=== PATIENT | male | born 1970 | race Caucasian/White ===

== ENCOUNTER 2016-11-12 11:09 | Emergency (ER) | payer SELFPAY ==
[~2016-11-12] VITALS: Ht 172.7 cm; Wt 72.8 kg
[~2016-11-12 11:09] MED LIST: FLT05NA16 NSEACH; GLUC1KIT2 IJ; INSU100I17 SQ; INSU100V13 SQ; INSU100V5 SQ; INSU100V6 SQ; LISI20TA PO; LOVA10TA PO; PALI234D IM; PALIPERIDONE PALMITATE 234 MG IM; SULF1TAB38 PO
--- NOTE | 2016-11-12 11:43 | ED General ---
General Chief Complaint: Eye Problems Stated Complaint: EYE IS SWOLLEN Nursing Triage Note: PT HAS SWELLING BELOW BOTH EYES THAT HE SAYS HE WOKE UP WITH THIS A.M. Nursing Sepsis Screen: No Definite Risk Source of Information: Patient, Family (sister) Exam Limitations: No Limitations History of Present Illness Time Seen by Provider: 11:30 Initial Comments 46-year-old male patient presents to the emergency department complains of swelling below both eyes beginning this a.m. when he woke up. Denies any known injury. Denies headache, changes in vision. Does state he has had mild tearing of the eyes. Denies any known contact with allergens. Denies fever, dizziness, chills. Timing/Duration: 1-3 Hours Allergies and Home Medications Allergies Coded Allergies: Cephalexin Monohydrate (Verified Adverse Reaction, Mild, 07/18/11) Erythromycin Base (Verified Adverse Reaction, Mild, 07/18/11) Home Medications Insulin Aspart Unknown Strength Insuln.pen, 13 UNIT SQ TID, (Reported) WITH MEALS Insulin Detemir 100 Unit/1 Ml Vial, 30 UNIT SQ HS, (Reported) Lisinopril 20 Mg Tablet, 20 MG PO DAILY, (Reported) TAKES FOR KIDNEY FUNCTION, NOT B/P Lovastatin 10 Mg Tablet, 10 MG PO HS, (Reported) Prednisone 20 Mg Tab, 20 MG PO DAILY, #4 Ref 0 Prescribed by: AMBER SUAREZ on 11/12/16 1305 Constitutional: No chills, No diaphoresis, No dizziness, No fever, No malaise, No weakness EENTM: see HPI, tearing, No ear discharge, No ear pain, No eye pain, No mouth pain, No mouth swelling, No nose congestion, No nose pain, No throat pain, No throat swelling, No vision loss Respiratory: no symptoms reported Cardiovascular: no symptoms reported Gastrointestinal: no symptoms reported Genitourinary: no symptoms reported Musculoskeletal: no symptoms reported Skin: see HPI, No change in color, No lesions, other (swelling below the eyes bilaterally) Psychiatric/Neurological: Denies Headache Immunological/Allergic: no symptoms reported All Other Systems Reviewed Negative Unless Noted: Yes (Negative excepted noted.) Past Skvseyi-Gfrmll-Awzabq Hx Patient Social History Alcohol Use: Denies Use Recreational Drug Use: No Smoking Status: Current Everyday Smoker Type Used: Cigarettes Recent Foreign Travel: No Contact w/Someone Who Travel: No Recent Infectious Disease Expo: No Recent Hopitalizations: No Immunizations Up To Date Tetanus Booster (TDap): More than 5yrs Date of Influenza Vaccine: Mar 14, 2011 Seasonal Allergies Seasonal Allergies: No Surgeries HX Surgeries: Yes (NEGAR ANTONIO) Surgeries: Tonsillectomy Respiratory Hx Respiratory Disorders: No Cardiovascular Hx Cardiac Disorders: No Neurological Hx Neurological Disorders: No Reproductive System Hx Reproductive Disorders: No Genitourinary Hx Genitourinary Disorders: No Gastrointestinal Hx Gastrointestinal Disorders: Yes Gastrointestinal Disorders: Gastroesophageal Reflux, Hiatal Hernia Musculoskeletal Hx Musculoskeletal Disorders: No Endocrine Hx Endocrine Disorders: Yes Endocrine Disorders: Diabetes, Insulin dep HEENT HX ENT Disorders: No Cancer Hx Cancer: No Psychosocial Hx Psychiatric Problems: Yes Behavioral Health Disorders: Bipolar, Schizophrenia Integumentary HX Skin/Integumentary Disorder: No Blood Transfusions Hx Blood Disorders: No Adverse Reaction to a Blood Tr: No Reviewed Nursing Assessment Reviewed/Agree w Nursing PMH: Yes Family Medical History Significant Family History: No Pertinent Family Hx Family Medial History: Cataract 03 FATHER, Onset:60 years & older Family history: Arthritis 03 FATHER, Onset:60 years & older Family history: Diabetes mellitus 03 FATHER, Onset:60 years & older Hypercholesterolemia 03 FATHER, Onset:60 years & older No Family History of: Abdominal aortic aneurysm Maxime's disease Alcoholism Aphasia Cancer Cancer of colon Chest pain Congenital heart disease Congestive heart failure Cystic fibrosis Dementia Dysphagia Family history: Allergy Family history: Alzheimer's disease Family history: Asthma Family history: Breast disease Family history: Cardiovascular disease Family history: Coronary thrombosis Family history: Gastrointestinal disease Family history: Glaucoma Family history: Hypertension Family history: Osteoporosis Family history: Thyroid disorder Headache Hearing loss Heart disease Hereditary disease History of - anemia History of - respiratory disease History of drug abuse Human immunodeficiency virus (HIV) seropositivity Infertile Kidney disease Malignant neoplasm of lung Myocardial infarction Parkinson's disease Prostate cancer Psychotic disorder Seizure disorder Stroke Tuberculosis Visual impairment Physical Exam Vital Signs Vital Sign - Last 12Hours 11/12/16 11:22 Temp 98.0 Pulse 105 Resp 20 B/P (MAP) 132/81 Pulse Ox 98 O2 Delivery Room Air Capillary Refill : Less Than 3 Seconds General Appearance: No Apparent Distress, WD/WN Eyes: Bilateral Eye EOMI, Bilateral Eye Other (infraorbital edema bilaterally w /o erythema or warmth. (-) tenderness.), Bilateral Eye PERRL HEENT: PERRL/EOMI, TMs Normal, Normal ENT Inspection, Pharynx Normal, Other ( infraorbital edema bilaterally w/o erythema or warmth. (-) tenderness. slight conjunctival injection bilaterally with tearing noted.) Neck: Full Range of Motion, Normal Inspection, Non Tender, Supple Respiratory: Lungs Clear, Normal Breath Sounds, No Respiratory Distress Cardiovascular: Regular Rate, Rhythm, No Edema, No Murmur, Normal Peripheral Pulses Gastrointestinal: Normal Bowel Sounds, Non Tender, Soft, No Distended Back: Normal Inspection Extremity: Normal Capillary Refill, Normal Inspection, No Pedal Edema Neurologic/Psychiatric: Alert, Oriented x3, No Motor/Sensory Deficits, Normal Mood/Affect, recruitment advertising manager II-XII Norm as Tested Skin: Normal Color, Warm/Dry, Other (infraorbital edema bilaterally w/o erythema or warmth. (-) tenderness.) Progress/Results/Core Measures Results/Orders Lab Results Laboratory Tests Test 11/12/16 11:45 11/12/16 11:55 11/12/16 12:00 11/12/16 12:38 Range/Units White Blood Count 11.1 H 4.3-11.0 10^3/uL Red Blood Count 4.54 4.35-5.85 10^6/uL Hemoglobin 13.5 13.3-17.7 G/DL Hematocrit 41 40-54 % Mean Corpuscular Volume 91 80-99 FL Mean Corpuscular Hemoglobin 30 25-34 PG Mean Corpuscular Hemoglobin Concent 33 32-36 G/DL Red Cell Distribution Width 15.7 H 10.0-14.5 % Platelet Count 278 130-400 10^3/uL Mean Platelet Volume 10.3 7.4-10.4 FL Neutrophils (%) (Auto) 75 42-75 % Lymphocytes (%) (Auto) 16 12-44 % Monocytes (%) (Auto) 8 0-12 % Eosinophils (%) (Auto) 1 0-10 % Basophils (%) (Auto) 0 0-10 % Neutrophils # (Auto) 8.4 H 1.8-7.8 X 10^3 Lymphocytes # (Auto) 1.7 1.0-4.0 X 10^3 Monocytes # (Auto) 0.9 0.0-1.0 X 10^3 Eosinophils # (Auto) 0.1 0.0-0.3 10^3/uL Basophils # (Auto) 0.0 0.0-0.1 10^3/uL Sodium Level 144 135-145 MMOL/L Potassium Level 3.2 L 3.6-5.0 MMOL/L Chloride Level 108 H 98-107 MMOL/L Carbon Dioxide Level 30 21-32 MMOL/L Anion Gap 6 5-14 MMOL/L Blood Urea Nitrogen 11 7-18 MG/DL Creatinine 0.75 0.60-1.30 MG/DL Estimat Glomerular Filtration Rate > 60 BUN/Creatinine Ratio 15 Glucose Level 38 *L 70-105 MG/DL Calcium Level 9.2 8.5-10.1 MG/DL Total Bilirubin 0.2 0.1-1.0 MG/DL Aspartate Amino Transf (AST/SGOT) 50 H 5-34 U/L Alanine Aminotransferase (ALT/SGPT) 36 0-55 U/L Alkaline Phosphatase 82 40-136 U/L C-Reactive Protein High Sensitivity 0.24 0.00-0.50 MG/DL B-Type Natriuretic Peptide 71.7 <100.0 PG/ML Total Protein 5.8 L 6.4-8.2 G/DL Albumin 3.6 3.2-4.5 G/DL Glucometer 37 *L 133 H 70-110 MG/DL Urine Color YELLOW Urine Clarity CLEAR Urine pH 6 5-9 Urine Specific [place] 1.020 1.016-1.022 Urine Protein NEGATIVE NEGATIVE Urine Glucose (UA) NEGATIVE NEGATIVE Urine Ketones NEGATIVE NEGATIVE Urine Nitrite NEGATIVE NEGATIVE Urine Bilirubin NEGATIVE NEGATIVE Urine Urobilinogen NORMAL NORMAL MG/DL Urine Leukocyte Esterase NEGATIVE NEGATIVE Urine RBC (Auto) NEGATIVE NEGATIVE Urine RBC NONE /HPF Urine WBC RARE /HPF Urine Crystals NONE /LPF Urine Bacteria TRACE /HPF Urine Casts NONE /LPF Urine Mucus SMALL H /LPF Urine Culture Indicated NO My Orders Orders - AMBER SUAREZ BNP (11/12/16 11:38) Cbc With Automated Diff (11/12/16 11:38) Comprehensive Metabolic Panel (11/12/16 11:38) Hs C Reactive Protein (11/12/16 11:38) Ua Culture If Indicated (11/12/16 11:38) Accucheck Stat ONCE (11/12/16 11:38) Saline Lock/Iv-Start (11/12/16 11:38) D50w (Emergency) Syringe (Dextrose 50% 5 (11/12/16 12:00) Famotidine Injection (Pepcid Injection) (11/12/16 11:56) Diphenhydramine Tablet (Benadryl Tablet) (11/12/16 12:00) Methylprednisolone Sod Succ (Solu-Medrol (11/12/16 12:00) General/Regular (11/12/16 Lunch) Iv Push Body Rolling Machine Tender Ed (11/12/16 ) Im/Sub-Q Injection Non-Ab Ed (11/12/16 ) Medications Given in ED Vital Signs/I&O Blood Pressure Mean: 98 Departure Communication Progress Notes Laboratory findings discussed with the patient. Patient shows improvement in symptoms with medications given in the emergency department. Plan for discharge to home. Patient instructed to follow-up with [facility] for recheck. Patient to monitor blood sugars closely. All return precautions were discussed with the patient as described in the discharge instructions of this report. Patient voices understanding and agrees with the treatment plan. Impression Impression: Primary Impression: Angio-edema Additional Impression: Hypoglycemia Disposition: 01 HOME, SELF-CARE Condition: Improved Departure-Patient Inst. Decision time for Depature: 13:04 Referrals: [facility] (PCP/Family) Primary Care Physician Patient Instructions: Angioedema (DC), Low Blood Sugar, Adult (DC) Add. Discharge Instructions: All discharge instructions reviewed with patient and/or family. Voiced understanding. Medications as instructed. Benadryl [id number] as directed for itching or swelling. Pepcid [id number] 20 mg by mouth twice daily as needed for itching and swelling. Cool compresses if needed. Follow- up with Jena Lemus APRN for recheck. Monitor blood sugars closely. Return to the emergency department for worsened swelling, pain, headache, dizziness, changes in vision, difficulty swallowing, difficulty breathing, vomiting, or any other concerns. Scripts Prednisone (Prednisone) 20 Mg Tab 20 MG PO DAILY, #4 TAB 0 Refills Prov: AMBER SUAREZ 11/12/16 AMBER SUAREZ November 12, 2016 11:43
[2016-11-12] MEDS ORDERED: FAMOTIDINE 20MG/2ML IV (PEPCID) IV STA (11:56)
[2016-11-12] MEDS ORDERED: DEXTROSE 50% 50 ML (IMS) SYR IV ONE (12:00)
[2016-11-12] MEDS ORDERED: methylPREDNISolone 125 MG (Solu-MEDROL) VIAL IM ONE (12:00)
[2016-11-12] MEDS ORDERED: diphenhydrAMINE 25 MG TAB (BENADRYL) PO ONE (12:00)
[2016-11-12 12:01] LABS: BASOPHILS % (AUTO) 0 % (0-10); EOSINOPHILS # (AUTO) 0.1 10^3/uL (0.0-0.3); EOSINOPHILS % (AUTO) 1 % (0-10); LYMPHOCYTES # (AUTO) 1.7 X 10^3 (1.0-4.0); LYMPHOCYTES % (AUTO) 16 % (12-44); MEAN CORPUSCULAR HEMOGLOBIN 30 PG (25-34); MEAN CORPUSCULAR HGB CONC 33 G/DL (32-36); MEAN CORPUSCULAR VOLUME 91 FL (80-99); MEAN PLATELET VOLUME 10.3 FL (7.4-10.4); MONOCYTES # (AUTO) 0.9 X 10^3 (0.0-1.0); MONOCYTES % (AUTO) 8 % (0-12); NEUTROPHILS # (AUTO) 8.4 X 10^3 (1.8-7.8); NEUTROPHILS % (AUTO) 75 % (42-75); PLATELET COUNT 278 10^3/uL (130-400); RED BLOOD COUNT 4.54 10^6/uL (4.35-5.85); RED CELL DISTRIBUTION WIDTH 15.7 % (10.0-14.5); WHITE BLOOD COUNT 11.1 10^3/uL (4.3-11.0)
[2016-11-12 12:18] LABS: ALANINE AMINOTRANSFERASE 36 U/L (0-55); ALBUMIN 3.6 G/DL (3.2-4.5); ANION GAP 6 MMOL/L (5-14); ASPARTATE AMINO TRANSFERASE 50 U/L (5-34); BILIRUBIN,TOTAL 0.2 MG/DL (0.1-1.0); BLOOD UREA NITROGEN 11 MG/DL (7-18); BUN/CREATININE RATIO 15; CALCIUM 9.2 MG/DL (8.5-10.1); CARBON DIOXIDE 30 MMOL/L (21-32); CHLORIDE 108 MMOL/L (98-107); CREATININE SERUM 0.75 MG/DL (0.60-1.30); GFR ESTIMATED > 60; POTASSIUM 3.2 MMOL/L (3.6-5.0); SODIUM 144 MMOL/L (135-145); TOTAL PROTEIN 5.8 G/DL (6.4-8.2); hs C REACTIVE PROTEIN 0.24 MG/DL (0.00-0.50)
[2016-11-12 12:22] LABS: BILIRUBIN,URINE NEGATIVE (NEGATIVE); KETONES,URINE NEGATIVE (NEGATIVE); LEUKOCYTE ESTERASE ,URINE NEGATIVE (NEGATIVE); NITRITE,URINE NEGATIVE (NEGATIVE); PH,URINE 6 (5-9); PROTEIN,URINE NEGATIVE (NEGATIVE); UROBILINOGEN,URINE NORMAL (NORMAL)
[2016-11-12 12:26] LABS: GLUCOSE 38 MG/DL (70-105)
[2016-11-12 12:44] LABS: WBC,URINE RARE /HPF
[2016-11-12] MEDS ORDERED: PRD20T PO (13:05)
[2016-11-12 13:14] VITALS: BP 118/83
== END 2016-11-12 13:14 | disposition home or self-care (01) ==
LOC: EDUNIT# 11:09 → ER 11:11
DX: T78.3XXA Angioneurotic edema, initial encounter (principal); E11.649 Type 2 diabetes mellitus with hypoglycemia without coma; F17.210 Nicotine dependence, cigarettes, uncomplicated; Z79.4 Long term (current) use of insulin; Z79.899 Other long term (current) drug therapy
CPT/HCPCS: 36415; 80053; 81000; 82962; 83880; 85025; 86141; 96372; 96374; 96375

== ENCOUNTER 2017-01-27 20:16 | Emergency (ER) | payer SELFPAY ==
[~2017-01-27] VITALS: Ht 170.2 cm; Wt 74.8 kg
[~2017-01-27 20:16] MED LIST changes: +PRD20T PO
[2017-01-27 20:55] LABS: BILIRUBIN,URINE NEGATIVE (NEGATIVE); KETONES,URINE 3+ (NEGATIVE); LEUKOCYTE ESTERASE ,URINE NEGATIVE (NEGATIVE); NITRITE,URINE NEGATIVE (NEGATIVE); PH,URINE 5 (5-9); PROTEIN,URINE NEGATIVE (NEGATIVE); UROBILINOGEN,URINE NORMAL (NORMAL)
[2017-01-27 21:02] LABS: SQUAMOUS EPITHELIAL CELL,UR RARE /HPF
[2017-01-27] MEDS ORDERED: NS IV 1000 ML 1,000 ML IV ONE ×2 (21:12→21:44)
[2017-01-27 21:20] LABS: BASOPHILS % (AUTO) 0 % (0-10); EOSINOPHILS # (AUTO) 0.1 10^3/uL (0.0-0.3); EOSINOPHILS % (AUTO) 1 % (0-10); LYMPHOCYTES # (AUTO) 1.8 X 10^3 (1.0-4.0); LYMPHOCYTES % (AUTO) 16 % (12-44); MEAN CORPUSCULAR HEMOGLOBIN 30 PG (25-34); MEAN CORPUSCULAR HGB CONC 34 G/DL (32-36); MEAN CORPUSCULAR VOLUME 91 FL (80-99); MEAN PLATELET VOLUME 10.2 FL (7.4-10.4); MONOCYTES # (AUTO) 0.6 X 10^3 (0.0-1.0); MONOCYTES % (AUTO) 5 % (0-12); NEUTROPHILS # (AUTO) 8.7 X 10^3 (1.8-7.8); NEUTROPHILS % (AUTO) 77 % (42-75); PLATELET COUNT 264 10^3/uL (130-400); RED BLOOD COUNT 5.36 10^6/uL (4.35-5.85); RED CELL DISTRIBUTION WIDTH 11.9 % (10.0-14.5); WHITE BLOOD COUNT 11.3 10^3/uL (4.3-11.0)
[2017-01-27 21:38] LABS: ALANINE AMINOTRANSFERASE 21 U/L (0-55); ALBUMIN 4.4 GM/DL (3.2-4.5); ALCOHOL < 10 MG/DL (<10); ANION GAP 17 MMOL/L (5-14); ASPARTATE AMINO TRANSFERASE 16 U/L (5-34); BILIRUBIN,TOTAL 0.3 MG/DL (0.1-1.0); BLOOD UREA NITROGEN 21 MG/DL (7-18); BUN/CREATININE RATIO 14; CALCIUM 9.7 MG/DL (8.5-10.1); CARBON DIOXIDE 19 MMOL/L (21-32); CHLORIDE 97 MMOL/L (98-107); CREATININE SERUM 1.47 MG/DL (0.60-1.30); GFR ESTIMATED 52; POTASSIUM 4.8 MMOL/L (3.6-5.0); SODIUM 133 MMOL/L (135-145); TOTAL PROTEIN 7.3 GM/DL (6.4-8.2)
[2017-01-27 21:40] LABS: GLUCOSE 576 MG/DL (70-105)
[2017-01-27] MEDS ORDERED: inSUlin (REGULAR) HUMAN 1 UNIT/0.01 ML (CHARGE PER UNIT) IV ONE ×2 (21:45→22:45)
--- NOTE | 2017-01-27 23:28 | ED General ---
General Chief Complaint: Psych/Social Disorder Stated Complaint: DIFF URINATING/"NERVOUS BREAKDOWN" Nursing Triage Note: pt reports he is had difficulty urinating x 2 days and thinks he needs in patient psych treatment for anxiety. pt states, "people are after me." Pt reports the elder counselor came to his house a couple days ago but did nothing. Pt denies wanting to harm self. Nursing Sepsis Screen: No Definite Risk Source of Information: Patient Exam Limitations: No Limitations History of Present Illness Time Seen by Provider: 20:22 Initial Comments This 46-year-old gentleman presents to the emergency room with complaints of racing heart, difficulty urinating, and paranoia. He feels like "people are after me". Patient reports that he routinely receives injections for anxiety. His daughter arrives later and states these injections are actually for paranoia related to schizophrenia. His counseling case manager is Eder who takes him to receive these injections. We are unsure of his compliance or if there have been any missed doses. Patient reports prior admissions to [facility] for extreme paranoia. At this time, he adamantly denies any suicidal or homicidal ideation. He is an insulin-dependent diabetic who reports his blood sugars have been elevated, over 200, this morning. He is calm in the room upon assessment and appears to have reasonable insight. She receives his mental health care at [facility]. His primary care provider is Jena Lemus. He is notably tachycardic on assessment. Allergies and Home Medications Allergies Coded Allergies: Cephalexin Monohydrate (Verified Adverse Reaction, Mild, 07/18/11) Erythromycin Base (Verified Adverse Reaction, Mild, 07/18/11) Home Medications Insulin Aspart Unknown Strength Insuln.pen, 13 UNIT SQ TID, (Reported) WITH MEALS Insulin Detemir 100 Unit/1 Ml Vial, 30 UNIT SQ HS, (Reported) Lisinopril 20 Mg Tablet, 20 MG PO DAILY, (Reported) TAKES FOR KIDNEY FUNCTION, NOT B/P Lovastatin 10 Mg Tablet, 10 MG PO HS, (Reported) Prednisone 20 Mg Tab, 20 MG PO DAILY, #4 Ref 0 Prescribed by: AMBER SUAREZ on 11/12/16 1305 Constitutional: no symptoms reported EENTM: no symptoms reported Respiratory: no symptoms reported Cardiovascular: see HPI Gastrointestinal: no symptoms reported Genitourinary: see HPI Musculoskeletal: no symptoms reported Skin: no symptoms reported Psychiatric/Neurological: See HPI Hematologic/Lymphatic: No Symptoms Reported Immunological/Allergic: no symptoms reported Past Egnbllv-Utbele-Svvfkh Hx Patient Social History Alcohol Use: Denies Use Recreational Drug Use: No Type Used: Cigarettes Recent Foreign Travel: No Contact w/Someone Who Travel: No Recent Infectious Disease Expo: No Recent Hopitalizations: No Immunizations Up To Date Tetanus Booster (TDap): More than 5yrs Date of Influenza Vaccine: Mar 14, 2011 Seasonal Allergies Seasonal Allergies: No Surgeries HX Surgeries: Yes (NEGAR ANTONIO) Surgeries: Tonsillectomy Respiratory Hx Respiratory Disorders: No Cardiovascular Hx Cardiac Disorders: Yes Cardiac Disorders: High Cholesterol Neurological Hx Neurological Disorders: No Reproductive System Hx Reproductive Disorders: No Genitourinary Hx Genitourinary Disorders: No Gastrointestinal Hx Gastrointestinal Disorders: Yes Gastrointestinal Disorders: Gastroesophageal Reflux, Hiatal Hernia Musculoskeletal Hx Musculoskeletal Disorders: No Endocrine Hx Endocrine Disorders: Yes Endocrine Disorders: Diabetes, Insulin dep HEENT HX ENT Disorders: No Cancer Hx Cancer: No Psychosocial Hx Psychiatric Problems: Yes Behavioral Health Disorders: Anxiety, Bipolar, Schizophrenia Integumentary HX Skin/Integumentary Disorder: No Blood Transfusions Hx Blood Disorders: No Adverse Reaction to a Blood Tr: No Family Medical History Significant Family History: No Pertinent Family Hx Family Medial History: Cataract 03 FATHER, Onset:60 years & older Family history: Arthritis 03 FATHER, Onset:60 years & older Family history: Diabetes mellitus 03 FATHER, Onset:60 years & older Hypercholesterolemia 03 FATHER, Onset:60 years & older No Family History of: Abdominal aortic aneurysm Maxime's disease Alcoholism Aphasia Cancer Cancer of colon Chest pain Congenital heart disease Congestive heart failure Cystic fibrosis Dementia Dysphagia Family history: Allergy Family history: Alzheimer's disease Family history: Asthma Family history: Breast disease Family history: Cardiovascular disease Family history: Coronary thrombosis Family history: Gastrointestinal disease Family history: Glaucoma Family history: Hypertension Family history: Osteoporosis Family history: Thyroid disorder Headache Hearing loss Heart disease Hereditary disease History of - anemia History of - respiratory disease History of drug abuse Human immunodeficiency virus (HIV) seropositivity Infertile Kidney disease Malignant neoplasm of lung Myocardial infarction Parkinson's disease Prostate cancer Psychotic disorder Seizure disorder Stroke Tuberculosis Visual impairment Physical Exam Vital Signs Vital Sign - Last 12Hours 01/27/17 20:25 Temp 98.7 Pulse 122 Resp 18 B/P (MAP) 145/97 Pulse Ox 99 O2 Delivery Room Air Capillary Refill : Less Than 3 Seconds General Appearance: No Apparent Distress, WD/WN HEENT: PERRL/EOMI, Normal ENT Inspection, Pharynx Normal Neck: Normal Inspection Respiratory: Lungs Clear, Normal Breath Sounds, No Accessory Muscle Use, No Respiratory Distress Cardiovascular: No Edema, No Murmur, Normal Peripheral Pulses, Tachycardia ( regular) Gastrointestinal: Normal Bowel Sounds, Non Tender, Soft Extremity: Normal Inspection, No Pedal Edema Neurologic/Psychiatric: Alert, Oriented x3, No Motor/Sensory Deficits, Normal Mood/Affect, resin painter II-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 He refers to this as a feeling rather than factual. Adamantly denies homicidal or suicidal ideation) Skin: Normal Color, Warm/Dry Progress/Results/Core Measures Results/Orders Lab Results Laboratory Tests Test 01/27/17 20:49 01/27/17 21:14 01/27/17 22:37 01/27/17 23:10 Range/Units Urine Color YELLOW Urine Clarity CLEAR Urine pH 5 5-9 Urine Specific [place] 1.010 L 1.016-1.022 Urine Protein NEGATIVE NEGATIVE Urine Glucose (UA) 4+ H NEGATIVE Urine Ketones 3+ H NEGATIVE Urine Nitrite NEGATIVE NEGATIVE Urine Bilirubin NEGATIVE NEGATIVE Urine Urobilinogen NORMAL NORMAL MG/DL Urine Leukocyte Esterase NEGATIVE NEGATIVE Urine RBC (Auto) NEGATIVE NEGATIVE Urine RBC NONE /HPF Urine WBC NONE /HPF Urine Squamous Epithelial Cells RARE /HPF Urine Crystals NONE /LPF Urine Bacteria NONE /HPF Urine Casts NONE /LPF Urine Mucus NEGATIVE /LPF Urine Culture Indicated NO Urine Opiates Screen NEGATIVE NEGATIVE Urine Oxycodone Screen NEGATIVE NEGATIVE Urine Methadone Screen NEGATIVE NEGATIVE Urine Propoxyphene Screen NEGATIVE NEGATIVE Urine Barbiturates Screen NEGATIVE NEGATIVE Ur Tricyclic Antidepressants Screen NEGATIVE NEGATIVE Urine Phencyclidine Screen NEGATIVE NEGATIVE Urine Amphetamines Screen NEGATIVE NEGATIVE Urine Methamphetamines Screen NEGATIVE NEGATIVE Urine Benzodiazepines Screen NEGATIVE NEGATIVE Urine Cocaine Screen NEGATIVE NEGATIVE Urine Cannabinoids Screen NEGATIVE NEGATIVE White Blood Count 11.3 H 4.3-11.0 10^3/uL Red Blood Count 5.36 4.35-5.85 10^6/uL Hemoglobin 16.3 13.3-17.7 G/DL Hematocrit 49 40-54 % Mean Corpuscular Volume 91 80-99 FL Mean Corpuscular Hemoglobin 30 25-34 PG Mean Corpuscular Hemoglobin Concent 34 32-36 G/DL Red Cell Distribution Width 11.9 10.0-14.5 % Platelet Count 264 130-400 10^3/uL Mean Platelet Volume 10.2 7.4-10.4 FL Neutrophils (%) (Auto) 77 H 42-75 % Lymphocytes (%) (Auto) 16 12-44 % Monocytes (%) (Auto) 5 0-12 % Eosinophils (%) (Auto) 1 0-10 % Basophils (%) (Auto) 0 0-10 % Neutrophils # (Auto) 8.7 H 1.8-7.8 X 10^3 Lymphocytes # (Auto) 1.8 1.0-4.0 X 10^3 Monocytes # (Auto) 0.6 0.0-1.0 X 10^3 Eosinophils # (Auto) 0.1 0.0-0.3 10^3/uL Basophils # (Auto) 0.0 0.0-0.1 10^3/uL Sodium Level 133 L 135-145 MMOL/L Potassium Level 4.8 3.6-5.0 MMOL/L Chloride Level 97 L 98-107 MMOL/L Carbon Dioxide Level 19 L 21-32 MMOL/L Anion Gap 17 H 5-14 MMOL/L Blood Urea Nitrogen 21 H 7-18 MG/DL Creatinine 1.47 H 0.60-1.30 MG/DL Estimat Glomerular Filtration Rate 52 BUN/Creatinine Ratio 14 Glucose Level 576 *H 70-105 MG/DL Calcium Level 9.7 8.5-10.1 MG/DL Total Bilirubin 0.3 0.1-1.0 MG/DL Aspartate Amino Transf (AST/SGOT) 16 5-34 U/L Alanine Aminotransferase (ALT/SGPT) 21 0-55 U/L Alkaline Phosphatase 102 40-136 U/L Total Protein 7.3 6.4-8.2 GM/DL Albumin 4.4 3.2-4.5 GM/DL TSH [place] Testing 1.65 0.35-4.94 UIU/ML Serum Alcohol < 10 <10 MG/DL Glucometer 487 *H 344 H 70-110 MG/DL My Orders Orders - SEYMOUR MUNOZ MD Ua Culture If Indicated (01/27/17 20:22) Alcohol (01/27/17 21:06) Cbc With Automated Diff (01/27/17 21:06) Comprehensive Metabolic Panel (01/27/17 21:06) Drug Screen Stat (Urine) (01/27/17 21:06) Thyroid Analyzer (01/27/17 21:06) Saline Lock/Iv-Start (01/27/17 21:12) Ns Iv 1000 Ml (Sodium Chloride 0.9%) (01/27/17 21:12) Insulin (Regular) Human (Humulin R (Per (01/27/17 21:45) Accucheck Stat ONCE (01/27/17 21:43) Ns Iv 1000 Ml (Sodium Chloride 0.9%) (01/27/17 21:44) Insulin (Regular) Human (Humulin R (Per (01/27/17 22:45) Accucheck Stat ONCE (01/27/17 23:00) Medications Given in ED Vital Signs/I&O Intake and Output 01/28/17 00:00 Intake Total 2000 ml Balance 2000 ml Blood Pressure Mean: 113 Point of Care Testing Finger Stick Blood Glucose: 344 Blood Glucose Action Taken: RN AND NOTIFIED Progress Note : Progress Note Patient was found to be significantly hyperglycemic. Patient received a total of 2 doses of IV insulin of 5 units each as well as 2 L of normal saline. He was able to urinate a couple of times during his ER visit. Blood sugar was trending down nicely on repeat fingersticks. I discussed his case with his daughter. I also contacted Sravani at 22:27 with [facility]. She is familiar with Krunal as she was previously his therapist. She will ensure that he gets close follow-up this week on an outpatient basis. Daughter is aware of this and agreeable. Patient is also agreeable. He felt significantly improved after IV hydration and treatment of his hyperglycemia. Departure Impression Impression: Primary Impression: Hyperglycemia Additional Impressions: Hypovolemia Paranoia Disposition: 01 HOME, SELF-CARE Condition: Improved Departure-Patient Inst. Decision time for Depature: 23:26 Referrals: [facility] (PCP/Family) Primary Care Physician Patient Instructions: Hyperglycemia, Adult, Schizoaffective Disorder (DC) Add. Discharge Instructions: Drink plenty of water. Eat a low sugar, low carbohydrate diet. [facility] should be contacting you tomorrow morning for follow-up. If you don't not hear from them, please contact them directly. If symptoms worsen regarding your paranoia, please call the SAVE Line at [phone] or return to the ER. Monitor your blood sugars by checking her blood sugar fasting in the morning and 2 hours after each meal. Record these blood sugars and bring them to the [facility] clinic for a follow-up appointment. Please call tomorrow to schedule a follow-up appointment. All discharge instructions reviewed with patient and/or family. Voiced understanding. Copy Copies To 1: WON PATRICIA JOSHUA T MD Jan 27, 2017 23:28
[2017-01-27 23:41] VITALS: BP 125/47
== END 2017-01-27 23:41 | disposition home or self-care (01) ==
LOC: EDUNIT# 20:16 → ER 20:17
DX: E11.65 Type 2 diabetes mellitus with hyperglycemia (principal); E86.1 Hypovolemia; F22 Delusional disorders; F41.9 Anxiety disorder, unspecified; E78.00 Pure hypercholesterolemia, unspecified; K21.9 Gastro-esophageal reflux disease without esophagitis; F31.9 Bipolar disorder, unspecified; F20.9 Schizophrenia, unspecified; Z82.49 Family history of ischemic heart disease and other diseases of the circulatory system; Z87.19 Personal history of other diseases of the digestive system; Z79.4 Long term (current) use of insulin; Z90.89 Acquired absence of other organs
CPT/HCPCS: 36415; 80053; 80306; 80320; 81000; 82962; 84443; 85025; 96361; 96374; 96376

== ENCOUNTER 2017-05-12 02:38 | Emergency (ER) | payer SELFPAY ==
[~2017-05-12] VITALS: Ht 172.7 cm; Wt 68.0 kg
[2017-05-12 02:38] VITALS: BP 128/85
[2017-05-12] MEDS ORDERED: NITROGLYCERIN 0.4 MG SL TABS BTL 25'S SL PRN (02:45)
--- OUTSIDE RECORDS SUMMARY | 2017-05-12 02:46 | XMS REPORT ---
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
--- OUTSIDE RECORDS SUMMARY | 2017-05-12 02:46 | XMS REPORT ---
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 Active 65425361 Problem Panic disorder [episodic paroxysmal anxiety] without agoraphobia F41.0 Active 76532184 Problem BG (generalized anxiety disorder) F41.1 Active 37382292 Problem Paranoid schizophrenia F20.0 Active 54894151 Problem Benign prostatic hyperplasia with lower urinary tract symptoms N40.1 Active 590133641 Problem 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 Active 1329438 Problem Acute medication-induced akathisia G25.89 Active 985950839 ALLERGIES No Information SOCIAL HISTORY Never Assessed PLAN OF CARE VITAL SIGNS MEDICATIONS Medication Instructions Dosage Frequency Start Date End Date Duration Status Levemir 100 UNIT/ML Subcutaneous Once a day 30 units at bedtime 24h OctoberDec, Active NovoLog 100 UNIT/ML Subcutaneous 3 times a day 20 units before meals 8h October, Dec, Active RESULTS No Results PROCEDURES No Known procedures IMMUNIZATIONS No Known Immunizations MEDICAL (GENERAL) HISTORY Type Description Date Medical History type II diabetes Medical History hypertension Medical History hyperlipidemia Medical History psychosis Medical History Eye exam normal Surgical History fundoplication-Lap Peggy Surgical History tonsillectomy Hospitalization History surgery
--- OUTSIDE RECORDS SUMMARY | 2017-05-12 02:47 | XMS REPORT ---
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 Active 51579307 Problem Panic disorder [episodic paroxysmal anxiety] without agoraphobia F41.0 Active 94025347 Problem BG (generalized anxiety disorder) F41.1 Active 03940690 Problem Paranoid schizophrenia F20.0 Active 67859516 Problem Benign prostatic hyperplasia with lower urinary tract symptoms N40.1 Active 759344802 Problem 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
--- OUTSIDE RECORDS SUMMARY | 2017-05-12 02:47 | XMS REPORT ---
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
--- OUTSIDE RECORDS SUMMARY | 2017-05-12 02:47 | XMS REPORT ---
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 Active 85336067 Problem Panic disorder [episodic paroxysmal anxiety] without agoraphobia F41.0 Active 62416825 Problem BG (generalized anxiety disorder) F41.1 Active 62231240 Problem Paranoid schizophrenia F20.0 Active 15632067 Problem Benign prostatic hyperplasia with lower urinary tract symptoms N40.1 Active 781365945 Problem 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
--- OUTSIDE RECORDS SUMMARY | 2017-05-12 02:47 | XMS REPORT ---
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 Active 30629147 Problem Panic disorder [episodic paroxysmal anxiety] without agoraphobia F41.0 Active 85314205 Problem BG (generalized anxiety disorder) F41.1 Active 65458954 Problem Paranoid schizophrenia F20.0 Active 71545212 Problem Benign prostatic hyperplasia with lower urinary tract symptoms N40.1 Active 195249088 Problem 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 Active 7650459 Problem Acute medication-induced akathisia G25.89 Active 663686218 ALLERGIES No Information SOCIAL HISTORY Never Assessed PLAN OF CARE VITAL SIGNS MEDICATIONS Medication Instructions Dosage Frequency Start Date End Date Duration Status NovoLog 100 UNIT/ML Subcutaneous 3 times a day Inject 20 units before meals 8h Aug, 90 days Active Lantus SoloStar 100 UNIT/ML Subcutaneous Once a day Inject 30 units at bedtime 24h Jun, 90 days Active RESULTS No Results PROCEDURES No Known procedures IMMUNIZATIONS No Known Immunizations MEDICAL (GENERAL) HISTORY Type Description Date Medical History type II diabetes Medical History hypertension Medical History hyperlipidemia Medical History psychosis Medical History Eye exam normal Surgical History fundoplication-Lap Peggy Surgical History tonsillectomy Hospitalization History surgery
--- OUTSIDE RECORDS SUMMARY | 2017-05-12 02:47 | XMS REPORT ---
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
--- OUTSIDE RECORDS SUMMARY | 2017-05-12 02:49 | XMS REPORT ---
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 Active 82348237 Problem Panic disorder [episodic paroxysmal anxiety] without agoraphobia F41.0 Active 58789253 Problem BG (generalized anxiety disorder) F41.1 Active 81141812 Problem Paranoid schizophrenia F20.0 Active 04540926 Problem Benign prostatic hyperplasia with lower urinary tract symptoms N40.1 Active 961582912 Problem 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 Active 8397250 Problem Acute medication-induced akathisia G25.89 Active 255617693 ALLERGIES Substance Reaction Event Type Date Status Keflex Unknown Drug Allergy October, Active Erythromycin Unknown Drug Allergy October, Active SOCIAL HISTORY Never Assessed PLAN OF CARE Activity Details Follow Up 4 Weeks Reason:DM VITAL SIGNS Height 67 in 2016-11-11 Weight 161.4 lbs 2016-11-11 Temperature 98.5 degrees Fahrenheit 2016-11-11 Heart Rate 102 bpm 2016-11-11 Respiratory Rate 18 2016-11-11 BMI 25.28 kg/m2 2016-11-11 Blood pressure systolic 116 mmHg 2016-11-11 Blood pressure diastolic 72 mmHg 2016-11-11 MEDICATIONS Medication Instructions Dosage Frequency Start Date End Date Duration Status Actos 45 MG Orally Once a day 1 tablet 24h October, 90 days Active BD Insulin Syringe 31G X 5/16 as directed 50 unit syringes October, Active Cardura 1 MG Orally Once a day 1 tablet 24h October, 90 days Active Lantus SoloStar 100 UNIT/ML Subcutaneous Once a day Inject 30 units at bedtime 24h Jun, 90 days Active BD Ultra-Fine Pen [place] 29G X 12.7MM as directed October, days Active Glucocard Expression Test - In Vitro 2 times a day as directed 12h Apr, Active Glucocard Expression Monitor w/Device as directed Apr, Active Humalog KwikPen 100 UNIT/ML Subcutaneous 3 times a day 20 units before meals 8h October, October, 10 days Active MetFORMIN HCl ER 750 MG Orally 2 times a day 1 tablet with meals 12h October 90 days Active NovoLog 100 UNIT/ML Subcutaneous 3 times a day Inject 20 units before meals 8h Aug, 90 days Active RESULTS Name Result Date Reference Range A1C (IN HOUSE) 2016-11-11 A1C IN HOUSE 11.8 4.3 - 5.6 % Previous A1c 11.0 Lot [id number] Exp date UA LONG DIP (IN HOUSE) Lot # [id number] Exp date 09/27/2017 Clarity Clear Color yellow Odor none GLU Trace AGUEDA Negative KET Negative SG 1.020 BLO negative pH 6.0 Protein Negative URO 0.2 NIT Negative JOHANNE Negative Lot # Exp date PSA 2016-11-11 Prostate Specific Ag, Serum 0.5 0.0-4.0 LIPID PANEL 2016-11-11 Cholesterol, Total 183 100-199 Triglycerides 215 0-149 HDL Cholesterol 44 >39 VLDL Cholesterol Kevon 43 5-40 LDL Cholesterol Calc 96 0-99 CMP 2016-11-11 Glucose, Serum 62 65-99 BUN 16 6-24 Creatinine, Serum 0.81 0.76-1.27 eGFR If NonAfricn Am 107 >59 eGFR If Africn Am 124 >59 BUN/Creatinine Ratio 20 9-20 Sodium, Serum 144 134-144 Potassium, Serum 4.0 3.5-5.2 Chloride, Serum 103 96-106 Carbon Dioxide, Total 27 18-29 Calcium, Serum 8.9 8.7-10.2 Protein, Total, Serum 5.3 6.0-8.5 Albumin, Serum 3.6 3.5-5.5 Globulin, Total 1.7 1.5-4.5 A/G Ratio 2.1 1.2-2.2 Bilirubin, Total <0.2 0.0-1.2 Alkaline Phosphatase, S 87 39-117 AST (SGOT) 45 0-40 ALT (SGPT) 25 0-44 PROCEDURES Procedure Date Ordered Result Body Site GLYCATED HEMOGLOBIN TEST November 11, 2016 URINALYSIS, AUTO, W/O SCOPE November 11, 2016 LIPID PANEL November 11, 2016 ASSAY OF PSA, TOTAL November 11, 2016 VENIPUNCT, ROUTINE* November 11, 2016 COMPREHEN METABOLIC PANEL November 11, 2016 IMMUNIZATIONS No Known Immunizations MEDICAL (GENERAL) HISTORY Type Description Date Medical History type II diabetes Medical History hypertension Medical History hyperlipidemia Medical History psychosis Medical History Eye exam normal Surgical History fundoplication-Lap Peggy Surgical History tonsillectomy Hospitalization History surgery
[2017-05-12 02:56] LABS: BASOPHILS # (AUTO) 0.1 10^3/uL (0.0-0.1); BASOPHILS % (AUTO) 1 % (0-10); EOSINOPHILS # (AUTO) 0.2 10^3/uL (0.0-0.3); EOSINOPHILS % (AUTO) 2 % (0-10); LYMPHOCYTES % (AUTO) 23 % (12-44); MEAN CORPUSCULAR HEMOGLOBIN 32 PG (25-34); MEAN CORPUSCULAR HGB CONC 33 G/DL (32-36); MEAN CORPUSCULAR VOLUME 97 FL (80-99); MONOCYTES # (AUTO) 0.6 X 10^3 (0.0-1.0); MONOCYTES % (AUTO) 7 % (0-12); NEUTROPHILS # (AUTO) 5.7 X 10^3 (1.8-7.8); NEUTROPHILS % (AUTO) 67 % (42-75); PLATELET COUNT 341 10^3/uL (130-400); RED BLOOD COUNT 3.96 10^6/uL (4.35-5.85); RED CELL DISTRIBUTION WIDTH 15.1 % (10.0-14.5); WHITE BLOOD COUNT 8.5 10^3/uL (4.3-11.0)
[2017-05-12 02:57] LABS: BILIRUBIN,URINE NEGATIVE (NEGATIVE); KETONES,URINE 1+ (NEGATIVE); LEUKOCYTE ESTERASE ,URINE NEGATIVE (NEGATIVE); NITRITE,URINE NEGATIVE (NEGATIVE); PH,URINE 5 (5-9); PROTEIN,URINE NEGATIVE (NEGATIVE); UROBILINOGEN,URINE NORMAL (NORMAL)
[2017-05-12] MEDS ORDERED: ANTACID SUSP 30 ML UDC (MYLANTA) PO ONE (03:00)
[2017-05-12] MEDS ORDERED: LIDOCAINE 2% VISCOUS 15 ML UDC PO ONE (03:00)
[2017-05-12 03:03] LABS: SQUAMOUS EPITHELIAL CELL,UR RARE /HPF
[2017-05-12 03:05] LABS: PROTHROMBIN TIME PATIENT 13.5 SEC (12.2-14.7)
[2017-05-12 03:15] LABS: ALANINE AMINOTRANSFERASE 27 U/L (0-55); ALBUMIN 3.8 GM/DL (3.2-4.5); ANION GAP 12 MMOL/L (5-14); ASPARTATE AMINO TRANSFERASE 20 U/L (5-34); BILIRUBIN,TOTAL 0.4 MG/DL (0.1-1.0); BLOOD UREA NITROGEN 17 MG/DL (7-18); BUN/CREATININE RATIO 18; CARBON DIOXIDE 24 MMOL/L (21-32); CHLORIDE 104 MMOL/L (98-107); CREATININE SERUM 0.93 MG/DL (0.60-1.30); GFR ESTIMATED > 60; GLUCOSE 161 MG/DL (70-105); MAGNESIUM 1.8 MG/DL (1.8-2.4); SODIUM 140 MMOL/L (135-145); TOTAL PROTEIN 5.9 GM/DL (6.4-8.2)
[2017-05-12 03:22] LABS: MYOGLOBIN SERUM 34.4 NG/ML (10.0-92.0)
--- NOTE | 2017-05-12 03:53 | ED Chest Pain ---
General Chief Complaint: Chest Pain Stated Complaint: CHEST PAIN Nursing Triage Note: PT TO ED 7 PER EMS FOR C/O CHEST PAIN ONSET WHILE ENTERING [facility]. ALSO C/O LT KIDNEY PAIN X 3 WEEKS Nursing Sepsis Screen: No Definite Risk Source: patient, EMS Exam Limitations: no limitations (SEYMOUR MUNOZ MD) History of Present Illness Time seen by provider: 02:39 Initial Comments This 47-year-old gentleman presents to the emergency room with complaints of substernal sharp chest pain that started around 20:00. It is intermittent. He reports it improves with rest. Pain started while he was sitting at home watching TV and worsened when he got up to go to [facility] to get something to eat. He had some associated shortness of breath. EMS was called out to [facility] for further assessment. Nitroglycerin 2 was administered which decreased his pain to 2/10 from 5/10. He was also administered aspirin. Fingerstick blood sugar was 173. Patient has no known heart disease. He does have risk factors including diabetes and hyperlipidemia. Patient also complains of "kidney pain" which he describes as lower back pain. This has been present for a couple weeks. (SEYMOUR MUNOZ MD) Allergies and Home Medications Allergies Coded Allergies: Cephalexin Monohydrate (Verified Adverse Reaction, Mild, 07/18/11) Erythromycin Base (Verified Adverse Reaction, Mild, 07/18/11) Home Medications Insulin Aspart Unknown Strength Insuln.pen, 13 UNIT SQ TID, (Reported) WITH MEALS Insulin Detemir 100 Unit/1 Ml Vial, 30 UNIT SQ HS, (Reported) Lisinopril 20 Mg Tablet, 20 MG PO DAILY, (Reported) TAKES FOR KIDNEY FUNCTION, NOT B/P Lovastatin 10 Mg Tablet, 10 MG PO HS, (Reported) Omeprazole 20 Mg Tablet.dr, 20 MG PO BID, #60 Prescribed by: SEYMOUR GONZALEZ on 05/12/17 0431 Prednisone 20 Mg Tab, 20 MG PO DAILY, #4 Ref 0 Prescribed by: AMBER SUAREZ on 11/12/16 1305 Review of Systems Constitutional: no symptoms reported EENTM: No Symptoms Reported Respiratory: See HPI Cardiovascular: See HPI Gastrointestinal: No Symptoms Reported Genitourinary: No Symptoms Reported Musculoskeletal: no symptoms reported Skin: no symptoms reported Psychiatric/Neurological: No Symptoms Reported Endocrine: No Symptoms Reported (SEYMOUR MUNOZ MD) Past Ybsgfsx-Shlhgl-Uaximt Hx Patient Social History Alcohol Use: Denies Use Recreational Drug Use: No Smoking Status: Current Everyday Smoker Type Used: Cigarettes Recent Foreign Travel: No Contact w/Someone Who Travel: No Recent Infectious Disease Expo: No Recent Hopitalizations: No Physical Abuse: No Sexual Abuse: No Mistreated: No Fear: No (SEYMOUR MUNOZ MD) Immunizations Up To Date Tetanus Booster (TDap): More than 5yrs Date of Influenza Vaccine: Mar 14, 2011 (SEYMOUR MUNOZ MD) Seasonal Allergies Seasonal Allergies: No (SEYMOUR MUNOZ MD) Surgeries History of Surgeries: Yes (NEGAR ANTONIO) Surgeries: Abdominal, Tonsillectomy (SEYMOUR MUNOZ MD) Respiratory History of Respiratory Disorde: No (SEYMOUR MUNOZ MD) Cardiovascular History of Cardiac Disorders: Yes Cardiac Disorders: High Cholesterol (SEYMOUR MUNOZ MD) Neurological History of Neurological Disord: No (SEYMOUR MUNOZ MD) Reproductive System Hx Reproductive Disorders: No (SEYMOUR MUNOZ MD) Genitourinary History of Genitourinary Disor: No (SEYMOUR MUNOZ MD) Gastrointestinal History of Gastrointestinal Di: Yes Gastrointestinal Disorders: Gastroesophageal Reflux, Hiatal Hernia (SEYMOUR MUNOZ MD) Musculoskeletal History of Musculoskeletal Dis: No (SEYMOUR MUNOZ MD) Endocrine History of Endocrine Disorders: Yes Endocrine Disorders: Diabetes, Insulin dep (SEYMOUR MUNOZ MD) HEENT History of HEENT Disorders: No (SEYMOUR MUNOZ MD) Cancer History of Cancer: No (SEYMOUR MUNOZ MD) Psychosocial History of Psychiatric Problem: Yes Behavioral Health Disorders: Anxiety, Suicide Attempts, Bipolar, Schizophrenia Suicide Risk Score: 0 (SEYMOUR MUNOZ MD) Integumentary History of Skin or Integumenta: No (SEYMOUR MUNOZ MD) Blood Transfusions History of Blood Disorders: No Adverse Reaction to a Blood Tr: No (SEYMOUR MUNOZ MD) Family Medical History Significant Family History: Diabetes Family Medial History: Cataract 03 FATHER, Onset:60 years & older Family history: Arthritis 03 FATHER, Onset:60 years & older Family history: Diabetes mellitus 03 FATHER, Onset:60 years & older Hypercholesterolemia 03 FATHER, Onset:60 years & older No Family History of: Abdominal aortic aneurysm Maxime's disease Alcoholism Aphasia Cancer Cancer of colon Chest pain Congenital heart disease Congestive heart failure Cystic fibrosis Dementia Dysphagia Family history: Allergy Family history: Alzheimer's disease Family history: Asthma Family history: Breast disease Family history: Cardiovascular disease Family history: Coronary thrombosis Family history: Gastrointestinal disease Family history: Glaucoma Family history: Hypertension Family history: Osteoporosis Family history: Thyroid disorder Headache Hearing loss Heart disease Hereditary disease History of - anemia History of - respiratory disease History of drug abuse Human immunodeficiency virus (HIV) seropositivity Infertile Kidney disease Malignant neoplasm of lung Myocardial infarction Parkinson's disease Prostate cancer Psychotic disorder Seizure disorder Stroke Tuberculosis Visual impairment (SEYMOUR MUNOZ MD) Family Medial History: Cataract 03 FATHER, Onset:60 years & older Family history: Arthritis 03 FATHER, Onset:60 years & older Family history: Diabetes mellitus 03 FATHER, Onset:60 years & older Hypercholesterolemia 03 FATHER, Onset:60 years & older No Family History of: Abdominal aortic aneurysm Plaza's disease Alcoholism Aphasia Cancer Cancer of colon Chest pain Congenital heart disease Congestive heart failure Cystic fibrosis Dementia Dysphagia Family history: Allergy Family history: Alzheimer's disease Family history: Asthma Family history: Breast disease Family history: Cardiovascular disease Family history: Coronary thrombosis Family history: Gastrointestinal disease Family history: Glaucoma Family history: Hypertension Family history: Osteoporosis Family history: Thyroid disorder Headache Hearing loss Heart disease Hereditary disease History of - anemia History of - respiratory disease History of drug abuse Human immunodeficiency virus (HIV) seropositivity Infertile Kidney disease Malignant neoplasm of lung Myocardial infarction Parkinson's disease Prostate cancer Psychotic disorder Seizure disorder Stroke Tuberculosis Visual impairment (MICHELLE HICKMAN) Physical Exam Vital Signs Vital Sign - Last 12Hours 05/12/17 02:38 Temp 97.1 Pulse 101 Resp 18 B/P (MAP) 128/85 Pulse Ox 96 O2 Delivery Room Air (MICHELLE HICKMAN) Vital Signs Capillary Refill : Less Than 3 Seconds (SEYMOUR MUNOZ MD) General Appearance: No Apparent Distress, WD/WN HEENT: PERRL/EOMI, Normal ENT Inspection Neck: Normal Inspection Respiratory: Lungs Clear, Normal Breath Sounds, No Accessory Muscle Use, No Respiratory Distress Cardiovascular: Regular Rate, Rhythm, No Edema, No Murmur, Normal Peripheral Pulses Gastrointestinal: Normal Bowel Sounds, Soft, Tenderness (mild in the epigastrium) Extremity: Normal Inspection, No Pedal Edema Neurologic/Psychiatric: Alert, Oriented x3, No Motor/Sensory Deficits, Normal 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, 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 Norm as Tested Skin: Normal Color, Warm/Dry (SEYMOUR MUNOZ MD) Progress/Results/Core Measures Results/Orders Lab Results Laboratory Tests Test 05/12/17 02:45 05/12/17 02:55 05/12/17 06:51 Range/Units White Blood Count 8.5 4.3-11.0 10^3/uL Red Blood Count 3.96 L 4.35-5.85 10^6/uL Hemoglobin 12.7 L 13.3-17.7 G/DL Hematocrit 39 L 40-54 % Mean Corpuscular Volume 97 80-99 FL Mean Corpuscular Hemoglobin 32 25-34 PG Mean Corpuscular Hemoglobin Concent 33 32-36 G/DL Red Cell Distribution Width 15.1 H 10.0-14.5 % Platelet Count 341 130-400 10^3/uL Mean Platelet Volume 9.0 7.4-10.4 FL Neutrophils (%) (Auto) 67 42-75 % Lymphocytes (%) (Auto) 23 12-44 % Monocytes (%) (Auto) 7 0-12 % Eosinophils (%) (Auto) 2 0-10 % Basophils (%) (Auto) 1 0-10 % Neutrophils # (Auto) 5.7 1.8-7.8 X 10^3 Lymphocytes # (Auto) 2.0 1.0-4.0 X 10^3 Monocytes # (Auto) 0.6 0.0-1.0 X 10^3 Eosinophils # (Auto) 0.2 0.0-0.3 10^3/uL Basophils # (Auto) 0.1 0.0-0.1 10^3/uL Prothrombin Time 13.5 12.2-14.7 SEC INR Comment 1.0 0.8-1.4 Activated Partial Thromboplast Time 29 24-35 SEC Sodium Level 140 135-145 MMOL/L Potassium Level 4.0 3.6-5.0 MMOL/L Chloride Level 104 98-107 MMOL/L Carbon Dioxide Level 24 21-32 MMOL/L Anion Gap 12 5-14 MMOL/L Blood Urea Nitrogen 17 7-18 MG/DL Creatinine 0.93 0.60-1.30 MG/DL Estimat Glomerular Filtration Rate > 60 BUN/Creatinine Ratio 18 Glucose Level 161 H 70-105 MG/DL Calcium Level 9.0 8.5-10.1 MG/DL Magnesium Level 1.8 1.8-2.4 MG/DL Total Bilirubin 0.4 0.1-1.0 MG/DL Aspartate Amino Transf (AST/SGOT) 20 5-34 U/L Alanine Aminotransferase (ALT/SGPT) 27 0-55 U/L Alkaline Phosphatase 100 40-136 U/L Myoglobin 34.4 10.0-92.0 NG/ML Troponin I < 0.30 < 0.30 <0.30 NG/ML Total Protein 5.9 L 6.4-8.2 GM/DL Albumin 3.8 3.2-4.5 GM/DL Lipase 20 8-78 U/L Urine Color YELLOW Urine Clarity CLEAR Urine pH 5 5-9 Urine Specific [place] 1.020 1.016-1.022 Urine Protein NEGATIVE NEGATIVE Urine Glucose (UA) NEGATIVE NEGATIVE Urine Ketones 1+ H NEGATIVE Urine Nitrite NEGATIVE NEGATIVE Urine Bilirubin NEGATIVE NEGATIVE Urine Urobilinogen NORMAL NORMAL MG/DL Urine Leukocyte Esterase NEGATIVE NEGATIVE Urine RBC (Auto) NEGATIVE NEGATIVE Urine RBC NONE /HPF Urine WBC NONE /HPF Urine Squamous Epithelial Cells RARE /HPF Urine Crystals NONE /LPF Urine Bacteria NEGATIVE /HPF Urine Casts NONE /LPF Urine Mucus NEGATIVE /LPF Urine Culture Indicated NO (MICHELLE HICKMAN) Medications Given in ED Current Medications Medications Dose Ordered Sig/Cuauhtemoc Route Start Time Stop Time Status Last Admin Dose Admin Al Hydrox/Mg Hydrox/Simethicone 30 ml ONCE ONCE PO 05/12/17 03:00 05/12/17 03:01 DC 05/12/17 03:04 30 ML Ketorolac Tromethamine 30 mg ONCE ONCE IVP 05/12/17 04:00 05/12/17 04:01 DC 05/12/17 04:08 30 MG Lidocaine HCl 15 ml ONCE ONCE PO 05/12/17 03:00 05/12/17 03:01 DC 05/12/17 03:04 15 ML (MICHELLE HICKMAN) Vital Signs/I&O Vital Sign - Last 12Hours 05/12/17 02:38 Temp 97.1 Pulse 101 Resp 18 B/P (MAP) 128/85 Pulse Ox 96 O2 Delivery Room Air (MICHELLE HICKMAN) Blood Pressure Mean: 99 Progress Note #1: Time: 03:40 Progress Note Chest pain completely resolved after drinking GI cocktail. Workup was unremarkable. A 4 hour cardiac rule out was felt appropriate as patient has never had a cardiac workup in the past. Progress Note #2: Time: 04:03 Progress Note Patient still has some lingering back pain. He would like some Toradol to treat his back pain so he can rest. Patient has marginally low blood pressure which she states is normal for him. (SEYMOUR MUNOZ MD) Progress Note : Time: 06:32 Progress Note Assume care of the patient at change of shift. Patient is resting comfortably in bed with what he states his next and no chest pain. He seemed to respond fairly to the GI cocktail. We are working towards a 4 hour delta troponin at 0645. Patient's having no other shortness of breath or discomfort. Reviewed history with him as well as imaging and labs. (MICHELLE HICKMAN) ECG Initial ECG Impression Date: May 12, 2017 Initial ECG Impression Time: 02:37 Initial ECG Rate: 90 Initial ECG Rhythm: Normal Sinus Initial ECG Intervals: Normal Initial ECG Impression: Normal Comment Normal sinus rhythm with no ST elevation or depression. No abnormal intervals or axis deviation. (SEYMOUR MUNOZ MD) Diagnostic Imaging Diagonstic Imaging: Xray Plain Films/CT/US/NM/MRI: chest Comments Chest x-ray viewed by me. Report not yet available. Compared with prior. No acute abnormalities appreciated. (SEYMOUR MUNOZ MD) Comments [place] NAME: HERRERA ARENAS MED REC#: [id number] PT STATUS: REG ER : 1970 PHYSICIAN: ESYMOUR MUNOZ MD ADMIT DATE: 05/12/17/ER Draft Date of Exam:05/12/17 CHEST 1 VIEW, AP/PA ONLY INDICATION: Chest pain COMPARISON: 05/14/2013 FINDINGS: Single frontal view of the chest demonstrates normal heart size and pulmonary vascularity. The lungs are well aerated and clear. No large pleural effusion or pneumothorax is seen. The visualized osseous structures show no acute abnormalities. IMPRESSION: 1. No acute cardiopulmonary process. Dictated on workstation # [id number] Dict: 05/12/17 0521 Trans: 05/12/17 0531 [facility] [id number] Interpreted by: CELESTINA COOPER MD Electronically signed by: (MICHELLE HICKMAN) Transfer of Care Transfer of Care Time: 06:00 Care transferred to: Jenelle (MICHELLE HICKMAN) Departure Impression Impression: Primary Impression: Chest pain Qualified Codes: R07.9 - Chest pain, unspecified Additional Impressions: Epigastric abdominal pain Lower back pain Qualified Codes: M54.5 - Low back pain Disposition: 01 HOME, SELF-CARE Condition: Improved Departure-Patient Inst. Decision time for Depature: 09:20 (MICHELLE HICKMAN) Referrals: [facility] (PCP/Family) Primary Care Physician Patient Instructions: Chest Pain (DC), Low Back Pain in Adults Add. Discharge Instructions: Follow-up with your primary care provider soon as possible and seek referral to a leadership program intern for further evaluation. Return to the emergency room if you have repeated episodes of chest pain. Take omeprazole as prescribed. For back pain, you may take Tylenol (acetaminophen) up to 1000 mg every 6 hours as needed. Gentle heat such as a heating pad on low may also be helpful. All discharge instructions reviewed with patient and/or family. Voiced understanding. Scripts Omeprazole (Omeprazole) 20 Mg Tablet. 20 MG PO BID, #60 TAB Prov: SEYMOUR MUNOZ MD 05/12/17 Copy Copies To 1: WON PATRICIA JOSHUA T MD May 12, 2017 03:53 MICHELLE HICKMAN May 12, 2017 06:33
[2017-05-12] MEDS ORDERED: KETOROLAC 30 MG/ML VIAL IVP ONE (04:00)
[2017-05-12] MEDS ORDERED: OMEP20TA7 PO (04:31)
--- NOTE | 2017-05-12 05:32 | Diagnostic Imaging Report ---
INDICATION: Chest pain COMPARISON: 05/14/2013 FINDINGS: Single frontal view of the chest demonstrates normal heart size and pulmonary vascularity. The lungs are well aerated and clear. No large pleural effusion or pneumothorax is seen. The visualized osseous structures show no acute abnormalities. IMPRESSION: 1. No acute cardiopulmonary process. Dictated by: Dictated on workstation # [id number]
== END 2017-05-12 09:21 | disposition home or self-care (01) ==
LOC: EDUNIT# 02:38 → ER 02:39
DX: R07.2 Precordial pain (principal); R10.13 Epigastric pain; M54.5 Low back pain; E78.00 Pure hypercholesterolemia, unspecified; K21.9 Gastro-esophageal reflux disease without esophagitis; E11.9 Type 2 diabetes mellitus without complications; F41.9 Anxiety disorder, unspecified; F20.9 Schizophrenia, unspecified; F31.9 Bipolar disorder, unspecified; F17.210 Nicotine dependence, cigarettes, uncomplicated; Z87.19 Personal history of other diseases of the digestive system; Z91.5 Personal history of self-harm; Z90.89 Acquired absence of other organs; Z79.4 Long term (current) use of insulin
CPT/HCPCS: 36415; 71010; 80053; 81000; 83690; 83735; 83874; 84484; 85025; 85610; 85730; 93005

== ENCOUNTER 2017-11-20 08:02 | Inpatient (IN) | payer MEDICAID ==
[2017-11-20] VITALS (15 sets, daily range): BP systolic 75–116; BP diastolic 55–81
[~2017-11-20] VITALS: Ht 170.2 cm; Wt 70.8 kg
[~2017-11-20 08:02] MED LIST changes: +ATOR40TA PO; +BENZ0.5T42 PO; +DIPH1TAB PO; +DIVA-21 PO; +INSU100I10 SQ; +INSU100V16 SQ; +METF-478 PO; +OLAN10TA19 PO; +OMEP20TA7 PO; +PIOG45TA7 PO; +SIMV40TA4 PO
[2017-11-20] MEDS ORDERED: LACTATED RINGERS 1,000 ML IV ONE (08:08)
--- NOTE | 2017-11-20 08:11 | ED General ---
General Stated Complaint: AMS Source of Information: Patient Exam Limitations: No Limitations (EBONY TEE MD) History of Present Illness Date Seen by Provider: November 20, 2017 Time Seen by Provider: 07:55 Initial Comments Arrives via EMS with report of altered mental status. Patient is unable to provide details and is rapidly breathing and is not following commands well. Patient noted to have blood sugar reading of high per EMS. EMS reports being called to his house for mental status changes. Timing/Duration: 1 Hour Severity: Moderate, Severe Associated Systoms: No Nausea/Vomiting (EBONY TEE MD) Allergies and Home Medications Allergies Coded Allergies: Cephalexin Monohydrate (Verified Adverse Reaction, Mild, 07/18/11) erythromycin base (Verified Adverse Reaction, Mild, 07/18/11) Home Medications Fluoxetine HCl 20 Mg Capsule, 20 MG PO DAILY, (Reported) LAST FILLED #30 09-19-17 Haloperidol 10 Mg Tablet, 10 MG PO HS, (Reported) LAST FILLED #30 09-19-17 Insulin Aspart 100 Unit/1 Ml Susp, 25 UNIT SQ TIDAC, (Reported) Patient Home Medication List Home Medication List Reviewed: Yes (EBONY TEE MD) Review of Systems Constitutional: see HPI; No fever Gastrointestinal: No vomiting Patient has rapid deep breathing. Otherwise unable to document review of systems due to patient's altered mental status and current medical condition. (EBONY TEE MD) Past Nptinmq-Okywre-Zhwtmv Hx Past Med/Social Hx: Reviewed Nursing Past Med/Soc Hx (EBONY TEE MD) Patient Social History Smoking Status: Current Everyday Smoker Type Used: Cigarettes 2nd Hand Smoke Exposure: No Recent Hopitalizations: No (EBONY TEE MD) Immunizations Up To Date Tetanus Booster (TDap): More than 5yrs Date of Influenza Vaccine: Mar 14, 2011 (EBONY TEE MD) Tetanus Booster (TDap): Less than 5yrs Date of Influenza Vaccine: Apr 10, 2016 (PAMELLA MALLOY) Seasonal Allergies Seasonal Allergies: No (EBONY TEE MD) Past Medical History Surgeries: Yes (NEGAR ANTONIO) Abdominal, Tonsillectomy Respiratory: No Cardiac: Yes High Cholesterol, Hypertension Neurological: No Reproductive Disorders: No Genitourinary: No Gastrointestinal: Yes Gastroesophageal Reflux, Hiatal Hernia Musculoskeletal: No Endocrine: Yes (Type 1) Diabetes, Insulin dep HEENT: No Cancer: No Psychosocial: Yes Anxiety, Suicide Attempts, Bipolar, Schizophrenia Integumentary: No Blood Disorders: No Adverse Reaction/Blood Tranf: No (EBONY TEE MD) Family Medical History Reviewed Nursing Family Hx (EBONY TEE MD) Cataract 03 FATHER, Onset:60 years & older Family history: Arthritis 03 FATHER, Onset:60 years & older Family history: Diabetes mellitus 03 FATHER, Onset:60 years & older Hypercholesterolemia 03 FATHER, Onset:60 years & older No Family History of: Abdominal aortic aneurysm Worthington's disease Alcoholism Aphasia Cancer Cancer of colon Chest pain Congenital heart disease Congestive heart failure Cystic fibrosis Dementia Dysphagia Family history: Allergy Family history: Alzheimer's disease Family history: Asthma Family history: Breast disease Family history: Cardiovascular disease Family history: Coronary thrombosis Family history: Gastrointestinal disease Family history: Glaucoma Family history: Hypertension Family history: Osteoporosis Family history: Thyroid disorder Headache Hearing loss Heart disease Hereditary disease History of - anemia History of - respiratory disease History of drug abuse Human immunodeficiency virus (HIV) seropositivity Infertile Kidney disease Malignant neoplasm of lung Myocardial infarction Parkinson's disease Prostate cancer Psychotic disorder Seizure disorder Stroke Tuberculosis Visual impairment Diabetes All history per records reviewed as patient unable provide details due to altered mental status and current medical condition. (EBONY TEE MD) Physical Exam Vital Signs Capillary Refill : (EBONY TEE MD) General Appearance: WD/WN, Mild Distress HEENT: PERRL/EOMI, Pharynx Normal, Other (dry mucous membranes) Neck: Non Tender, Supple Respiratory: Lungs Clear, Normal Breath Sounds Cardiovascular: No Murmur, Tachycardia Gastrointestinal: Non Tender, Soft Back: Normal Inspection, No CVA Tenderness, No Vertebral Tenderness Extremity: Normal Range of Motion, No Pedal Edema Neurologic/Psychiatric: Other (awake but does not answer questions. Unable to determine orientation due to altered mental status and current medical condition.) Skin: Normal Color, Warm/Dry (EBONY TEE MD) Procedures/Interventions Date of ETT Placement: November 20, 2017 Time of ETT Placement: 09:30 Intubation Method: orotracheal Tube Size: 8 Medications: Etomidate, Fentanyl, Succinylcholine, Versed Positive End Tide CO2: Yes Breath Sounds after Intubation: bilateral-equal Intubation Complications: no complications Post Intubation Xray: Yes tube in good position Intubated by Pamella Malloy APRN under my direct supervision. I was present throughout the entire procedure. Intubated times one attempt via video scope with no complications. (EBONY TEE MD) Progress/Results/Core Measures Suspected Sepsis SIRS Temperature: Pulse: Respiratory Rate: Laboratory Tests 11/20/17 08:07: White Blood Count 24.4H Blood Pressure / Mean: Laboratory Tests 11/20/17 08:07: Creatinine 1.95H, Platelet Count 378, Total Bilirubin 0.2 (EBONY TEE MD) Results/Orders Lab Results Laboratory Tests Test 11/20/17 08:07 Range/Units White Blood Count 24.4 H 4.3-11.0 10^3/uL Red Blood Count 5.13 4.35-5.85 10^6/uL Hemoglobin 15.4 13.3-17.7 G/DL Hematocrit 49 40-54 % Mean Corpuscular Volume 96 80-99 FL Mean Corpuscular Hemoglobin 30 25-34 PG Mean Corpuscular Hemoglobin Concent 31 L 32-36 G/DL Red Cell Distribution Width 13.9 10.0-14.5 % Platelet Count 378 130-400 10^3/uL Mean Platelet Volume 11.4 H 7.4-10.4 FL Neutrophils (%) (Auto) 64 42-75 % Lymphocytes (%) (Auto) 27 12-44 % Monocytes (%) (Auto) 8 0-12 % Eosinophils (%) (Auto) 1 0-10 % Basophils (%) (Auto) 0 0-10 % Neutrophils # (Auto) 15.6 H 1.8-7.8 X 10^3 Lymphocytes # (Auto) 6.5 H 1.0-4.0 X 10^3 Monocytes # (Auto) 2.0 H 0.0-1.0 X 10^3 Eosinophils # (Auto) 0.2 0.0-0.3 10^3/uL Basophils # (Auto) 0.1 0.0-0.1 10^3/uL (PAMELLA MALLOY STUDENT) Medications Given in ED Current Medications Medications Dose Ordered Sig/Cuauhtemoc Route Start Time Stop Time Status Last Admin Dose Admin Lactated Ringer's 1,000 ml @ 0 mls/hr Q0M ONCE IV 11/20/17 08:08 11/20/17 08:09 DC 11/20/17 08:16 1,000 MLS/HR (PAMELLA MALLOY STUDENT) Vital Signs/I&O Capillary Refill : (EBONY TEE MD) Progress Note : Progress Note Seen and evaluated. IV by EMS. Normal saline 1 L bolus by EMS initiated and will be completed. Second IV initiated and LR 1 L bolus ordered. Labs, UA ordered. Patient is significantly altered in mental status and not following commands well. We will continue to monitor. 0901: ABG reviewed. I discussed the case with Dr. Rivera. We will give 2 A of bicarbonate now. Due to profound altered mental status and patient attempting to pull lines as well as the profound volume depletion and level of ketoacidosis, we will intubate patient for airway protection. 0930: Intubation complete and patient placed on vent at rate of 16, tidal line 500, PEEP of 5 with FiO2 to titrate to keep sats greater than 92 percent. Third liter of normal saline initiated. 1010: I have discussed the case with Dr. Vora. Patient did receive 10 units of insulin IV and will be started on insulin drip at 7 units an hour currently. Patient to be admitted to the ICU, inpatient status. He did receive Munoz catheter and NG tube. NG tube in good position on x-ray. Munoz catheter for accurate I&O's. Clinical condition. 1055: Tylenol level noted to be toxic overdose. I discussed the case with Dr. Ruiz Howell, pharmacist implementation specialist payroll. He will initiate Acetadote treatment. Patient is going to the ICU currently and he will initiate that treatment there. I did update the primary physicians. (EBONY TEE MD) Diagnostic Imaging Diagonstic Imaging: Xray Plain Films/CT/US/NM/MRI: chest Comments Discussed with radiologist. Tubes in good position. No other acute significant findings. Mild atelectasis noted. Reviewed: Reviewed by Me (EBONY TEE MD) Departure Communication (Admissions) Time/Spoke to Admitting Phy: 09:01 (EBONY TEE MD) Impression Primary Impression: Diabetic ketoacidosis Qualified Codes: E10.11 - Type 1 diabetes mellitus with ketoacidosis with coma Additional Impressions: Volume depletion Acetaminophen overdose Qualified Codes: T39.1X4A - Poisoning by 4-aminophenol derivatives, undetermined, initial encounter Disposition: ADMITTED INPATIENT Condition: Critical Admissions Decision to Admit Reason: Admit from ER (General) Decision to Admit/Date: November 20, 2017 Time/Decision to Admit Time: 09:01 (EBONY TEE MD) Departure-Patient Inst. Referrals: [facility] (PCP/Family) Primary Care Physician EBONY TEE MD November 20, 2017 08:11 PAMELLA MALLOY STUDENT November 20, 2017 08:32
--- OUTSIDE RECORDS SUMMARY | 2017-11-20 08:14 | XMS REPORT | Continuity of Care Document ---
Author Author [facility] Address Unknown Phone Unavailable Allergies Active Description Code Type Severity Reaction Onset Reported/Identified Relationship to Patient Clinical Status Yes erythromycin Drug Allergy N/ A N/A 03/02/2009 Yes Keflex Drug Allergy N/A N/A 03/02/2009 Yes erythromycin Drug Allergy 03/02/2009 Yes Keflex Drug Allergy 03/02/2009 Yes Cephalexin Monohydrate [id number] Drug Allergy Mild N/A 07/18/2011 Yes erythromycin base [id number] Drug Allergy Mild N/A 07/18/2011 Medications There is no data. Problems Date Dx Coded Attending Type Code Diagnosis Diagnosed By 03/02/2009 WON PATRICIA DO 250.03 DIABETES MELLITUS TYPE I - UNCONTROLLED 03/02/2009 WON PATRICIA DO K 272.4 HYPERLIPIDEMIA 03/02/2009 WON PATRICIA DO K 401.9 UNSPECIFIED ESSENTIAL HYPERTENSION 03/02/2009 WON PATRICIA DO K 553.20 UNSPECIFIED VENTRAL HERNIA WITHOUT OBSTRUCTION OR GANGRENE 03/02/2009 250.03 DIABETES MELLITUS TYPE I - UNCONTROLLED 03/02/2009 272.4 HYPERLIPIDEMIA 03/02/2009 401.9 UNSPECIFIED ESSENTIAL HYPERTENSION 03/02/2009 553.20 UNSPECIFIED VENTRAL HERNIA WITHOUT OBSTRUCTION OR GANGRENE 03/02/2009 WON PATRICIA DO K 250.03 DIABETES MELLITUS TYPE I - UNCONTROLLED 03/02/2009 MARK PATRICIA DOA K 272.4 HYPERLIPIDEMIA 03/02/2009 MARK PATRICIA DOA K 401.9 UNSPECIFIED ESSENTIAL HYPERTENSION 03/02/2009 MARK PATRICIA DOA K 553.20 UNSPECIFIED VENTRAL HERNIA WITHOUT OBSTRUCTION OR GANGRENE 03/02/2009 WON PATRICIA DO K 250.03 DIABETES MELLITUS TYPE I - UNCONTROLLED 03/02/2009 MARK PATRICIA DOA K 272.4 HYPERLIPIDEMIA 03/02/2009 MARK PATRICIA DOA K 401.9 UNSPECIFIED ESSENTIAL HYPERTENSION 03/02/2009 MARK PATRICIA DOA K 553.20 UNSPECIFIED VENTRAL HERNIA WITHOUT OBSTRUCTION OR GANGRENE 03/02/2009 PATRICIA DO, WON K 250.03 DIABETES MELLITUS TYPE I - UNCONTROLLED 03/02/2009 PATRICIA DO, WON K 272.4 HYPERLIPIDEMIA 03/02/2009 PATRICIA DO, WON K 401.9 UNSPECIFIED ESSENTIAL HYPERTENSION 03/02/2009 PATRICIA DO, WON K 553.20 UNSPECIFIED VENTRAL HERNIA WITHOUT OBSTRUCTION OR GANGRENE 03/02/2009 250.03 DIABETES MELLITUS TYPE I - UNCONTROLLED 03/02/2009 272.4 HYPERLIPIDEMIA 03/02/2009 401.9 UNSPECIFIED ESSENTIAL HYPERTENSION 03/02/2009 553.20 UNSPECIFIED VENTRAL HERNIA WITHOUT OBSTRUCTION OR GANGRENE 03/02/[address] TRANSCRIBER, CHIRAG S 250.03 DIABETES MELLITUS TYPE I - UNCONTROLLED 03/02/[address] TRANSCRIBER, CHIRAG S 272.4 HYPERLIPIDEMIA 03/02/[address] TRANSCRIBER, CHIRAG S 401.9 UNSPECIFIED ESSENTIAL HYPERTENSION 03/02/[address] TRANSCRIBER, CHIRAG S 553.20 UNSPECIFIED VENTRAL HERNIA WITHOUT OBSTRUCTION OR GANGRENE 03/02/[address] TRANSCRIBER, CHIRAG S 250.03 DIABETES MELLITUS TYPE I - UNCONTROLLED 03/02/[address] TRANSCRIBER, CHIRAG S 272.4 HYPERLIPIDEMIA 03/02/[address] TRANSCRIBER, CHIRAG S 401.9 UNSPECIFIED ESSENTIAL HYPERTENSION 03/02/[address] TRANSCRIBER, CHIRAG S 553.20 UNSPECIFIED VENTRAL HERNIA WITHOUT OBSTRUCTION OR GANGRENE 03/02/2009 PATRICIA DO, WON K 250.03 DIABETES MELLITUS TYPE I - UNCONTROLLED 03/02/2009 PATRICIA DO, WON K 272.4 HYPERLIPIDEMIA 03/02/2009 PATRICIA DO, WON K 401.9 UNSPECIFIED ESSENTIAL HYPERTENSION 03/02/2009 PATRICIA DO, WON K 553.20 UNSPECIFIED VENTRAL HERNIA WITHOUT OBSTRUCTION OR GANGRENE 03/02/[address] TRANSCRIBER, LEOLA N 250.03 DIABETES MELLITUS TYPE I - UNCONTROLLED 03/02/[address] TRANSCRIBER, LEOLA N 272.4 HYPERLIPIDEMIA 03/02/[address] TRANSCRIBER, LEOLA N 401.9 UNSPECIFIED ESSENTIAL HYPERTENSION 03/02/[address] TRANSCRIBER, LEOLA N 553.20 UNSPECIFIED VENTRAL HERNIA WITHOUT OBSTRUCTION OR GANGRENE 03/02/[address] TRANSCRIBER, CHIRAG S 250.03 DIABETES MELLITUS TYPE I - UNCONTROLLED 03/02/[address] TRANSCRIBER, CHIRAG S 272.4 HYPERLIPIDEMIA 03/02/[address] TRANSCRIBER, CHIRAG S 401.9 UNSPECIFIED ESSENTIAL HYPERTENSION 03/02/[address] TRANSCRIBER, CHIRAG S 553.20 UNSPECIFIED VENTRAL HERNIA WITHOUT OBSTRUCTION OR GANGRENE 03/02/[address] TRANSCRIBER, CHIRAG S 250.03 DIABETES MELLITUS TYPE I - UNCONTROLLED 03/02/[address] TRANSCRIBER, CHIRAG S 272.4 HYPERLIPIDEMIA 03/02/[address] TRANSCRIBER, CHIRAG S 401.9 UNSPECIFIED ESSENTIAL HYPERTENSION 03/02/[address] TRANSCRIBER, CHIRAG S 553.20 UNSPECIFIED VENTRAL HERNIA WITHOUT OBSTRUCTION OR GANGRENE 04/13/2009 PATRICIA DO, WON K 110.4 DERMATOPHYTOSIS, OF FOOT 04/13/2009 PATRICIA DO, WON K 461.9 ACUTE SINUSITIS, UNSPECIFIED 04/13/2009 110.4 DERMATOPHYTOSIS, OF FOOT 04/13/2009 461.9 ACUTE SINUSITIS, UNSPECIFIED 04/13/2009 PATRICIA DO, WON K 110.4 DERMATOPHYTOSIS, OF FOOT 04/13/2009 PATRICIA DO, WON K 461.9 ACUTE SINUSITIS, UNSPECIFIED 04/13/2009 PATRICIA DO, WON K 110.4 DERMATOPHYTOSIS, OF FOOT 04/13/2009 PATRICIA DO, WON K 461.9 ACUTE SINUSITIS, UNSPECIFIED 04/13/2009 PATRICIA DO, WON K 110.4 DERMATOPHYTOSIS, OF FOOT 04/13/2009 PATRICIA DO, WON K 461.9 ACUTE SINUSITIS, UNSPECIFIED 04/13/2009 110.4 DERMATOPHYTOSIS, OF FOOT 04/13/2009 461.9 ACUTE SINUSITIS, UNSPECIFIED 04/13/[address] TRANSCRIBER, CHIRAG S 110.4 DERMATOPHYTOSIS, OF FOOT 04/13/[address] TRANSCRIBER, CHIRAG S 461.9 ACUTE SINUSITIS, UNSPECIFIED 04/13/[address] TRANSCRIBER, CHIRAG S 110.4 DERMATOPHYTOSIS, OF FOOT 04/13/[address] TRANSCRIBER, CHIRAG S 461.9 ACUTE SINUSITIS, UNSPECIFIED 04/13/2009 PATRICIA DO, WON K 110.4 DERMATOPHYTOSIS, OF FOOT 04/13/2009 PATRICIA DO, WON K 461.9 ACUTE SINUSITIS, UNSPECIFIED 04/13/[address] TRANSCRIBER, LEOLA N 110.4 DERMATOPHYTOSIS, OF FOOT 04/13/[address] TRANSCRIBER, LEOLA N 461.9 ACUTE SINUSITIS, UNSPECIFIED 04/13/[address] TRANSCRIBER, CHIRAG S 110.4 DERMATOPHYTOSIS, OF FOOT 04/13/[address] TRANSCRIBER, CHIRAG S 461.9 ACUTE SINUSITIS, UNSPECIFIED 04/13/[address] TRANSCRIBER, CHIRAG S 110.4 DERMATOPHYTOSIS, OF FOOT 04/13/[address] TRANSCRIBER, CHIRAG S 461.9 ACUTE SINUSITIS, UNSPECIFIED 08/24/2009 PATRICIA DO, WON K 726.32 LATERAL EPICONDYLITIS (TENNIS ELBOW) LEFT 08/24/2009 726.32 LATERAL EPICONDYLITIS (TENNIS ELBOW) LEFT 08/24/2009 PATRICIA DO, WON K 726.32 LATERAL EPICONDYLITIS (TENNIS ELBOW) LEFT 08/24/2009 PATRICIA DO, WON K 726.32 LATERAL EPICONDYLITIS (TENNIS ELBOW) LEFT 08/24/2009 PATRICIA DO, WON K 726.32 LATERAL EPICONDYLITIS (TENNIS ELBOW) LEFT 08/24/2009 726.32 LATERAL EPICONDYLITIS (TENNIS ELBOW) LEFT 08/24/[address] TRANSCRIBER, CHIRAG S 726.32 LATERAL EPICONDYLITIS (TENNIS ELBOW) LEFT 08/24/[address] TRANSCRIBER, CHIRAG S 726.32 LATERAL EPICONDYLITIS (TENNIS ELBOW) LEFT 08/24/2009 PATRICIA DO, WON K 726.32 LATERAL EPICONDYLITIS (TENNIS ELBOW) LEFT 08/24/[address] TRANSCRIBER, LEOLA N 726.32 LATERAL EPICONDYLITIS (TENNIS ELBOW) LEFT 08/24/[address] TRANSCRIBER, CHIRAG S 726.32 LATERAL EPICONDYLITIS (TENNIS ELBOW) LEFT 08/24/[address] TRANSCRIBER, CHIRAG S 726.32 LATERAL EPICONDYLITIS (TENNIS ELBOW) LEFT 09/13/2009 PATRICIA DO, WON K 250.01 DIABETES MELLITUS TYPE I 09/13/2009 250.01 DIABETES MELLITUS TYPE I 09/13/2009 PATRICIA DO, WON K 250.01 DIABETES MELLITUS TYPE I 09/13/2009 PATRICIA DO, WON K 250.01 DIABETES MELLITUS TYPE I 09/13/2009 PATRICIA DO, WON K 250.01 DIABETES MELLITUS TYPE 1 09/13/2009 250.01 DIABETES MELLITUS TYPE 1 09/13/[address] TRANSCRIBER, CHIRAG S 250.01 DIABETES MELLITUS TYPE 1 09/13/[address] TRANSCRIBER, CHIRAG S 250.01 DIABETES MELLITUS TYPE 1 09/13/2009 PATRICIA DO, WON K 250.01 DIABETES MELLITUS TYPE 1 09/13/[address] TRANSCRIBER, LEOLA N 250.01 DIABETES MELLITUS TYPE 1 09/13/[address] TRANSCRIBER, CHIRAG S 250.01 DIABETES MELLITUS TYPE 1 09/13/[address] TRANSCRIBER, CHIRAG S 250.01 DIABETES MELLITUS TYPE 1 04/17/2010 PATRICIA DO, WON K 309.1 ADJUSTMENT REACTION WITH PROLONGED DEPRESSIVE REACTION 04/17/2010 309.1 ADJUSTMENT REACTION WITH PROLONGED DEPRESSIVE REACTION 04/17/2010 PATRICIA DO, WON K 309.1 ADJUSTMENT REACTION WITH PROLONGED DEPRESSIVE REACTION 04/17/2010 PATRICIA DO, WON K 309.1 ADJUSTMENT REACTION WITH PROLONGED DEPRESSIVE REACTION 04/17/2010 PATRICIA DO, WON K 309.1 ADJUSTMENT REACTION WITH PROLONGED DEPRESSIVE REACTION 04/17/2010 309.1 ADJUSTMENT REACTION WITH PROLONGED DEPRESSIVE REACTION 04/17/2010 KHANH NICHOLASN, CHIRAG S 309.1 ADJUSTMENT REACTION WITH PROLONGED DEPRESSIVE REACTION 04/17/[address] TRANSCRIBER, CHIRAG S 309.1 ADJUSTMENT REACTION WITH PROLONGED DEPRESSIVE REACTION 04/17/2010 PATRICIA DO, WON K 309.1 ADJUSTMENT REACTION WITH PROLONGED DEPRESSIVE REACTION 04/17/2010 RUSS HARRY APRNCY N 309.1 ADJUSTMENT REACTION WITH PROLONGED DEPRESSIVE REACTION 04/17/[address] TRANSCRIBER, CHIRAG S 309.1 ADJUSTMENT REACTION WITH PROLONGED DEPRESSIVE REACTION 04/17/[address] TRANSCRIBER, CHIRAG S 309.1 ADJUSTMENT REACTION WITH PROLONGED DEPRESSIVE REACTION 04/24/2010 PATRICIA DO, WON K 785.6 LYMPH NODES ENLARGEMENT 04/24/2010 PATRICIA DO, WON K 786.50 CHEST PAIN 04/24/2010 785.6 LYMPH NODES ENLARGEMENT 04/24/2010 786.50 CHEST PAIN 04/24/2010 PATRICIA DO, WON K 785.6 LYMPH NODES ENLARGEMENT 04/24/2010 PATRICIA DO, WON K 786.50 CHEST PAIN 04/24/2010 PATRICIA DO, WON K 785.6 LYMPH NODES ENLARGEMENT 04/24/2010 PATRICIA DO, WON K 786.50 CHEST PAIN 04/24/2010 PATRICIA DO, WON K 785.6 LYMPH NODES ENLARGEMENT 04/24/2010 PATRICIA DO, WON K 786.50 CHEST PAIN 04/24/2010 785.6 LYMPH NODES ENLARGEMENT 04/24/2010 786.50 CHEST PAIN 04/24/[address] TRANSCRIBER, CHIRAG S 785.6 LYMPH NODES ENLARGEMENT 04/24/[address] TRANSCRIBER, CHIRAG S 786.50 CHEST PAIN 04/24/[address] TRANSCRIBER, CHIRAG S 785.6 LYMPH NODES ENLARGEMENT 04/24/[address] TRANSCRIBER, CHIRAG S 786.50 CHEST PAIN 04/24/2010 PATRICIA DO, WON K 785.6 LYMPH NODES ENLARGEMENT 04/24/2010 PATRICIA DO, WON K 786.50 CHEST PAIN 04/24/[address] TRANSCRIBER, LELOA N 785.6 LYMPH NODES ENLARGEMENT 04/24/[address] TRANSCRIBER, LEOLA N 786.50 CHEST PAIN 04/24/[address] TRANSCRIBER, CHIRAG S 785.6 LYMPH NODES ENLARGEMENT 04/24/[address] TRANSCRIBER, CHIRAG S 786.50 CHEST PAIN 04/24/[address] TRANSCRIBER, CHIRAG S 785.6 LYMPH NODES ENLARGEMENT 04/24/[address] TRANSCRIBER, CHIRAG S 786.50 CHEST PAIN 11/11/2010 Ot 250.00 11/11/2010 Ot 786.05 11/11/2010 Ot V58.67 04/24/2011 PATRICIA DO, WON K 300.00 ANXIETY STATE UNSPECIFIED 04/24/2011 PATRICIA DO, WON K V04.81 FLU DX (3 YRS AND ABOVE, IM) 04/24/2011 300.00 ANXIETY STATE UNSPECIFIED 04/24/2011 V04.81 FLU DX (3 YRS AND ABOVE, IM) 04/24/2011 PATRICIA DO, WON K 300.00 ANXIETY STATE UNSPECIFIED 04/24/2011 PATRICIA DO, WON K V04.81 FLU DX (3 YRS AND ABOVE, IM) 04/24/2011 PATRICIA DO, WON K 300.00 ANXIETY STATE UNSPECIFIED 04/24/2011 PATRICIA DO, WON K V04.81 FLU DX (3 YRS AND ABOVE, IM) 04/24/2011 PATRICIA DO, WON K 300.00 ANXIETY STATE UNSPECIFIED 04/24/2011 PATRICIA DO, WON K V04.81 FLU DX (3 YRS AND ABOVE, IM) 04/24/2011 300.00 ANXIETY STATE UNSPECIFIED 04/24/2011 V04.81 FLU DX (3 YRS AND ABOVE, IM) 04/24/[address] TRANSCRIBER, CHIRAG S 300.00 ANXIETY STATE UNSPECIFIED 04/24/[address] TRANSCRIBER, CHIRAG S V04.81 FLU DX (3 YRS AND ABOVE, IM) 04/24/[address] TRANSCRIBER, CHIRAG S 300.00 ANXIETY STATE UNSPECIFIED 04/24/[address] TRANSCRIBER, CHIRAG S V04.81 FLU DX (3 YRS AND ABOVE, IM) 04/24/2011 PATRICIA DO, WON K 300.00 ANXIETY STATE UNSPECIFIED 04/24/2011 PATRICIA DO, WON K V04.81 FLU DX (3 YRS AND ABOVE, IM) 04/24/[address] TRANSCRIBER, LEOLA N 300.00 ANXIETY STATE UNSPECIFIED 04/24/[address] TRANSCRIBER, LEOLA N V04.81 FLU DX (3 YRS AND ABOVE, IM) 04/24/[address] TRANSCRIBER, CHIRAG S 300.00 ANXIETY STATE UNSPECIFIED 04/24/[address] TRANSCRIBER, CHIRAG S V04.81 FLU DX (3 YRS AND ABOVE, IM) 04/24/[address] TRANSCRIBER, CHIRAG S 300.00 ANXIETY STATE UNSPECIFIED 04/24/[address] TRANSCRIBER, CHIRAG S V04.81 FLU DX (3 YRS AND ABOVE, IM) 07/15/2011 Ot 250.03 DIAB LORENZO WO COMPL, TYPE I [JUVENILE TYP 07/15/2011 Ot 311 DEPRESSIVE DISORDER NEC 07/15/2011 Ot 784.2 SWELLING IN HEAD NECK 07/19/2011 Ot 250.00 DIAB LORENZO WO COMPL, TYPE II OR UNSPEC TY 07/19/2011 Ot 272.4 HYPERLIPIDEMIA NEC/NOS 07/19/2011 Ot 296.20 DEPRESS DISORDER-UNSPEC 07/19/2011 Ot 401.9 HYPERTENSION NOS 07/19/2011 Ot 530.81 ESOPHAGEAL REFLUX 07/19/2011 Ot 965.1 POISONING- SALICYLATES 07/19/2011 Ot E950.0 SUICIDE- ANALGESICS 07/19/2011 Ot V03.82 PROPHYLACTIC VACC AGAINST STREPTOCOCCUS 07/19/2011 Ot V58.67 LONG-TERM ( CURRENT) USE OF INSULIN 05/07/2012 WON PATRICIA DO K 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 05/07/2012 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 05/07/2012 WON PATRICIA DO K 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 05/07/2012 WON PATRICIA DO K 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 05/07/2012 WON PATRICIA DO K 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 05/07/2012 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 05/07/2012 CHIRAG CASSIDY APRN S 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 05/07/2012 CHIRAG CASSIDY APRN S 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 05/07/2012 WON PATRICIA DO K 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 05/07/2012 LEOLA HARRY APRN 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 05/07/2012 CHIRAG CASSIDY APRN S 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 05/07/2012 BRUNO CASSIDY APRNA S 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 05/12/2012 MARK PATRICIA DOA K 791.0 MICROALBUMINURIA 05/12/2012 791.0 MICROALBUMINURIA 05/12/2012 MARK PATRICIA DOA K 791.0 MICROALBUMINURIA 05/12/2012 MARK PATRICIA DOA K 791.0 MICROALBUMINURIA 05/12/2012 MARK PATRICIA DOA K 791.0 MICROALBUMINURIA 05/12/2012 791.0 MICROALBUMINURIA 05/12/2012 CHIRAG CASSIDY APRN S 791.0 MICROALBUMINURIA 05/12/2012 KHANH KEBEDE CHIRAG S 791.0 MICROALBUMINURIA 05/12/2012 BELEM DO, WON K 791.0 MICROALBUMINURIA 05/12/2012 KOJO DESAI APRN, LEOLA N 791.0 MICROALBUMINURIA 05/12/[address] TRANSCRIBER, CHIRAG S 791.0 MICROALBUMINURIA 05/12/[address] TRANSCRIBER, CHIRAG S 791.0 MICROALBUMINURIA 06/11/2012 Ot 682.6 CELLULITIS OF LEG 08/26/2012 PATRICIA DO, WON K 784.2 SWELLING MASS OR LUMP IN HEAD AND NECK 08/26/2012 PATRICIA DO, WON K 784.2 SWELLING MASS OR LUMP IN HEAD AND NECK 08/26/2012 PATRICIA DO, WON K 784.2 SWELLING MASS OR LUMP IN HEAD AND NECK 08/26/2012 784.2 SWELLING MASS OR LUMP IN HEAD AND NECK 08/26/2012 CAMERON CASSIDY APRNNDA S 784.2 SWELLING MASS OR LUMP IN HEAD AND NECK 08/26/2012 KHANH KEBEDE CHIRAG S 784.2 SWELLING MASS OR LUMP IN HEAD AND NECK 08/26/2012 PATRICIA DO, WON K 784.2 SWELLING MASS OR LUMP IN HEAD AND NECK 08/26/2012 KOJO DESAI APRN LEOLA N 784.2 SWELLING MASS OR LUMP IN HEAD AND NECK 08/26/2012 KHANH KEBEDE CHIRAG S 784.2 SWELLING MASS OR LUMP IN HEAD AND NECK 08/26/2012 KHANH KEBEDE CHIRAG S 784.2 SWELLING MASS OR LUMP IN HEAD AND NECK 05/16/2013 HATTIE CHRISTIANSON MD N Ot 250.13 DIAB W KETOACIDOSIS, TYPE I [JUVENILE TY 05/16/2013 HATTIE CHRISTIANSON MD Ot 272.4 HYPERLIPIDEMIA NEC/NOS 05/16/2013 HATTIE CHRISTIANSON MD Ot 276.7 HYPERPOTASSEMIA 05/16/2013 HATTIE CHRISTIANSON MD Ot 276.8 HYPOPOTASSEMIA 05/16/2013 HATTIE CHRISTIANSON MD Ot 305.1 TOBACCO USE DISORDER 05/16/2013 HATTIE CHRISTIANSON MD Ot 401.9 HYPERTENSION NOS 05/16/2013 HATTIE CHRISTIANSON MD Ot 584.9 ACUTE RENAL FAILURE, UNSPECIFIED 05/16/2013 HATTIE CHRISTIANSON MD Ot 786.50 CHEST PAIN NOS 05/16/2013 HATTIE CHRISTIANSON MD Ot V04.81 ND FOR PROPHYLACTIC VACCIN AND INOCULATI 05/16/2013 HATTIE CHRISTIANSON MD Ot V58.67 LONG-TERM (CURRENT) USE OF INSULIN 07/08/2013 CHIRAG CASSIDY APRN S 250.10 DIABETES WITH KETOACIDOSIS TYPE II OR UNSPECIFIED TYPE NOT STATED UNCONTROLLED 07/08/2013 CHIRAG CASSIDY APRN S 783.21 WEIGHT LOSS 07/08/2013 WON PATRICIA DO K 250.10 DIABETES WITH KETOACIDOSIS TYPE II OR UNSPECIFIED TYPE NOT STATED UNCONTROLLED 07/08/2013 WON PATRICIA DO K 783.21 WEIGHT LOSS 07/08/2013 LEOLA HARRY APRN N 250.10 DIABETES WITH KETOACIDOSIS TYPE II OR UNSPECIFIED TYPE NOT STATED UNCONTROLLED 07/08/2013 LEOLA HARRY APRN N 783.21 WEIGHT LOSS 07/08/2013 CHIRAG CASSIDY APRN S 250.10 DIABETES WITH KETOACIDOSIS TYPE II OR UNSPECIFIED TYPE NOT STATED UNCONTROLLED 07/08/2013 CHIRAG CASSIDY APRN S 783.21 WEIGHT LOSS 07/08/2013 BRUNO CASSIDY APRNA S 250.10 DIABETES WITH KETOACIDOSIS TYPE II OR UNSPECIFIED TYPE NOT STATED UNCONTROLLED 07/08/2013 CHIRAG CASSIDY APRN S 783.21 WEIGHT LOSS 07/09/2013 WON PATRICIA DO Ot 250.13 DIAB W KETOACIDOSIS, TYPE I [JUVENILE TY 07/09/2013 WON PATRICIA DO K Ot 276.1 HYPOSMOLALITY 07/09/2013 WON PATRICIA DO Ot 276.8 HYPOPOTASSEMIA 07/09/2013 WON PATRICIA DO Ot 584.9 ACUTE RENAL FAILURE, UNSPECIFIED 12/14/2013 LEOLA HARRY APRN N 298.9 UNSPECIFIED PSYCHOSIS 12/14/2013 CHIRAG CASSIDY APRN S 298.9 UNSPECIFIED PSYCHOSIS 12/14/2013 CHIRAG CASSIDY APRN S 298.9 UNSPECIFIED PSYCHOSIS 10/13/2014 EBONY TEE MD Ot 250.00 DIAB LORENZO WO COMPL, TYPE II OR UNSPEC TY 10/13/2014 EBONY TEE MD Ot 599.0 URIN TRACT INFECTION NOS 10/13/2014 EBONY TEE MD Ot 788.64 URINARY HESITANCY 10/13/2014 EBONY TEE MD Ot V58.67 LONG-TERM (CURRENT) USE OF INSULIN 10/09/2015 Ot 784.2 10/09/2015 Ot 785.6 10/09/2015 Ot V72.63 10/09/2015 Ot V74.8 10/09/2015 TAMMY ARAGON, SEYMOUR Haddad Ot E11.9 TYPE 2 DIABETES MELLITUS WITHOUT COMPLIC 10/09/2015 TAMMY ARAGON, SEYMOUR Haddad Ot R39.11 HESITANCY OF MICTURITION 10/09/2015 SEYMOUR MUNOZ MD Ot Z79.4 [facility] (CURRENT) USE OF INSULIN 10/09/2015 SEYMOUR MUNOZ MD Ot Z87.891 PERSONAL HISTORY OF NICOTINE DEPENDENCE 10/09/2015 Ot 784.2 10/09/2015 Ot 785.6 10/09/2015 Ot V72.63 10/09/2015 Ot V74.8 10/11/2015 SEYMOUR MUNOZ MD Ot E11.9 10/11/2015 SEYMOUR MUNOZ MD Ot R39.11 10/11/2015 SEYMOUR MUNOZ MD Ot Z79.4 10/11/2015 SEYMOUR MUNOZ MD Ot Z87.891 11/12/2016 AMBER FRY Ot E11.649 TYPE 2 DIABETES MELLITUS WITH HYPOGLYCEM 11/12/2016 AMBER FRY Ot F17.210 NICOTINE DEPENDENCE, CIGARETTES, UNCOMPL 11/12/2016 AMBER FRY Ot H57.9 UNSPECIFIED DISORDER OF EYE AND ADNEXA 11/12/2016 AMBER FRY Ot T78.3XXA ANGIONEUROTIC EDEMA, INITIAL ENCOUNTER 11/12/2016 AMBER FRY Ot Z79.4 [facility] (CURRENT) USE OF INSULIN 11/12/2016 AMBER FRY Ot Z79.899 OTHER [facility] (CURRENT) DRUG THERAPY 11/12/2016 Ot 784.2 SWELLING IN HEAD NECK 11/12/2016 Ot 785.6 ENLARGEMENT LYMPH NODES 11/12/2016 Ot V72.63 PRE- PROCEDURAL LABORATORY EXAMINATION 11/12/2016 Ot V74.8 SCREEN- BACTERIAL DIS NEC 11/13/2016 AMBER FRY Ot E11.649 TYPE 2 DIABETES MELLITUS WITH HYPOGLYCEM 11/13/2016 AMBER FRY Ot F17.210 NICOTINE DEPENDENCE, CIGARETTES, UNCOMPL 11/13/2016 AMBER FRY Ot H57.9 UNSPECIFIED DISORDER OF EYE AND ADNEXA 11/13/2016 AMBER FRY Ot T78.3XXA ANGIONEUROTIC EDEMA, INITIAL ENCOUNTER 11/13/2016 AMBER FRY Ot 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00 PURE HYPERCHOLESTEROLEMIA, UNSPECIFIED 01/27/2017 SEYMOUR MUNOZ MD Ot E86.1 HYPOVOLEMIA 01/27/2017 TAMMY ARAGON, SEYMOUR Haddad Ot F20.9 SCHIZOPHRENIA, UNSPECIFIED 01/27/2017 TAMMY ARAGON, SEYMOUR Haddad Ot F22 DELUSIONAL DISORDERS 01/27/2017 SEYMOUR MUNOZ MD Ot F31.9 BIPOLAR DISORDER, UNSPECIFIED 01/27/2017 SEYMOUR MUNOZ MD Ot F41.9 ANXIETY DISORDER, UNSPECIFIED 01/27/2017 SEYMOUR MUNOZ MD Ot K21.9 GASTRO-ESOPHAGEAL REFLUX DISEASE WITHOUT 01/27/2017 SEYMOUR MUNOZ MD Ot R00.0 TACHYCARDIA, UNSPECIFIED 01/27/2017 SEYMOUR MUNOZ MD Ot 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 01/27/2017 SEYMOUR MUNOZ MD Ot Z82.49 FAMILY HX OF ISCHEM HEART DIS AND OTH DI 01/27/2017 SEYMOUR MUNOZ MD Ot Z87.19 PERSONAL HISTORY OF OTHER DISEASES OF 01/27/2017 SEYMOUR MUNOZ MD Ot Z90.89 ACQUIRED ABSENCE OF OTHER ORGANS 01/29/2017 SEYMOUR MUNOZ MD Ot E11.65 TYPE 2 DIABETES MELLITUS WITH HYPERGLYCE 01/29/2017 SEYMOUR MUNOZ MD Ot E78.00 PURE HYPERCHOLESTEROLEMIA, UNSPECIFIED 01/29/2017 SEYMOUR MUNOZ MD Ot E86.1 HYPOVOLEMIA 01/29/2017 SEYMOUR MUNOZ MD Ot F20.9 SCHIZOPHRENIA, UNSPECIFIED 01/29/2017 SEYMOUR MUNOZ MD Ot F22 DELUSIONAL DISORDERS 01/29/2017 SEYMOUR MUNOZ MD Ot F31.9 BIPOLAR DISORDER, UNSPECIFIED 01/29/2017 SEYMOUR MUNOZ MD Ot F41.9 ANXIETY DISORDER, UNSPECIFIED 01/29/2017 SEYMOUR MUNOZ MD Ot K21.9 GASTRO-ESOPHAGEAL REFLUX DISEASE WITHOUT 01/29/2017 SEYMOUR MUNOZ MD Ot R00.0 TACHYCARDIA, UNSPECIFIED 01/29/2017 SEYMOUR MUNOZ MD Ot 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 01/29/2017 SEYMOUR MUNOZ MD Ot Z82.49 FAMILY HX OF ISCHEM HEART DIS AND OTH DI 01/29/2017 SEYMOUR MUNOZ MD Ot Z87.19 PERSONAL HISTORY OF OTHER DISEASES OF 01/29/2017 SEYMOUR MUNOZ MD Ot Z90.89 ACQUIRED ABSENCE OF OTHER ORGANS 05/12/2017 Ot 784.2 SWELLING IN HEAD NECK 05/12/2017 Ot 785.6 ENLARGEMENT LYMPH NODES 05/12/2017 Ot V72.63 PRE- PROCEDURAL LABORATORY EXAMINATION 05/12/2017 Ot V74.8 SCREEN- BACTERIAL DIS NEC 05/12/2017 MICHELLE HICKMAN MD Ot E11.9 TYPE 2 DIABETES MELLITUS WITHOUT COMPLIC 05/12/2017 MICHELLE HICKMAN MD Ot E78.00 PURE HYPERCHOLESTEROLEMIA, UNSPECIFIED 05/12/2017 MICHELLE HICKMAN MD Ot F17.210 NICOTINE DEPENDENCE, CIGARETTES, UNCOMPL 05/12/2017 MICHELLE HICKMAN MD Ot F20.9 SCHIZOPHRENIA, UNSPECIFIED 05/12/2017 MICHELLE HICKMAN MD Ot F31.9 BIPOLAR DISORDER, UNSPECIFIED 05/12/2017 MICHELLE HICKMAN MD Ot F41.9 ANXIETY DISORDER, UNSPECIFIED 05/12/2017 MICHELLE HICKMAN MD Ot K21.9 GASTRO-ESOPHAGEAL REFLUX DISEASE WITHOUT 05/12/2017 MICHELLE HICKMAN MD Ot M54.5 LOW BACK PAIN 05/12/2017 MICHELLE HICKMAN MD Ot R07.2 PRECORDIAL PAIN 05/12/2017 MICHELLE HICKMAN MD Ot R10.13 EPIGASTRIC PAIN 05/12/2017 MICHELLE HICKMAN MD Ot 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 05/12/2017 MICHELLE HICKMAN MD Ot Z87.19 PERSONAL HISTORY OF OTHER DISEASES OF TH 05/12/2017 MICHELLE HICKMAN MD Ot Z90.89 ACQUIRED ABSENCE OF OTHER ORGANS 05/12/2017 MICHELLE HICKMAN MD Ot Z91.5 PERSONAL HISTORY OF SELF-HARM 05/12/2017 Ot 784.2 SWELLING IN HEAD NECK 05/12/2017 Ot 785.6 ENLARGEMENT LYMPH NODES 05/12/2017 Ot V72.63 PRE- PROCEDURAL LABORATORY EXAMINATION 05/12/2017 Ot V74.8 SCREEN- BACTERIAL DIS NEC 05/14/2017 MICHELLE HICKMAN MD Ot E11.9 TYPE 2 DIABETES MELLITUS WITHOUT COMPLIC 05/14/2017 MICHELLE HICKMAN MD Ot E78.00 PURE HYPERCHOLESTEROLEMIA, UNSPECIFIED 05/14/2017 MICHELLE HICKMAN MD Ot F17.210 NICOTINE DEPENDENCE, CIGARETTES, UNCOMPL 05/14/2017 MICHELLE HICKMAN MD Ot F20.9 SCHIZOPHRENIA, UNSPECIFIED 05/14/2017 MICHELLE HICKMAN MD Ot F31.9 BIPOLAR DISORDER, UNSPECIFIED 05/14/2017 MICHELLE HICKMAN MD Ot F41.9 ANXIETY DISORDER, UNSPECIFIED 05/14/2017 MICHELLE HICKMAN MD Ot K21.9 GASTRO-ESOPHAGEAL REFLUX DISEASE WITHOUT 05/14/2017 MICHELLE HICKMAN MD Ot M54.5 LOW BACK PAIN 05/14/2017 MICHELLE HICKMAN MD Ot R07.2 PRECORDIAL PAIN 05/14/2017 MICHELLE HICKMAN MD Ot R10.13 EPIGASTRIC PAIN 05/14/2017 MICHELLE HICKMAN MD Ot Z79.4 [facility] (CURRENT) USE OF INSULIN 05/14/2017 MICHELLE HICKMAN MD Ot Z87.19 PERSONAL HISTORY OF OTHER DISEASES OF TH 05/14/2017 MICHELLE HICKMAN MD Ot Z90.89 ACQUIRED ABSENCE OF OTHER ORGANS 05/14/2017 MICHELLE HICKMAN MD Ot Z91.5 PERSONAL HISTORY OF SELF-HARM 05/18/2017 MICHELLE HICKMAN MD Ot E11.9 TYPE 2 DIABETES MELLITUS WITHOUT COMPLIC 05/18/2017 MICHELLE HICKMAN MD Ot E78.00 PURE HYPERCHOLESTEROLEMIA, UNSPECIFIED 05/18/2017 MICHELLE HICKMAN MD Ot F17.210 NICOTINE DEPENDENCE, CIGARETTES, UNCOMPL 05/18/2017 MICHELLE HICKMAN MD Ot F20.9 SCHIZOPHRENIA, UNSPECIFIED 05/18/2017 MICHELLE HICKMAN MD Ot F31.9 BIPOLAR DISORDER, UNSPECIFIED 05/18/2017 MICHELLE HICKMAN MD Ot F41.9 ANXIETY DISORDER, UNSPECIFIED 05/18/2017 MICHELLE HICKMAN MD Ot K21.9 GASTRO-ESOPHAGEAL REFLUX DISEASE WITHOUT 05/18/2017 MICHELLE HICKMAN MD Ot M54.5 LOW BACK PAIN 05/18/2017 MICHELLE HICKMAN MD Ot R07.2 PRECORDIAL PAIN 05/18/2017 MICHELLE HICKMAN MD Ot R10.13 EPIGASTRIC PAIN 05/18/2017 MICHELLE HICKMAN MD Ot Z79.4 [facility] (CURRENT) USE OF INSULIN 05/18/2017 MICHELLE HICKMAN MD, Ot Z87.19 PERSONAL HISTORY OF OTHER DISEASES OF TH 05/18/2017 MICHELLE HICKMAN MD, Ot Z90.89 ACQUIRED ABSENCE OF OTHER ORGANS 05/18/2017 MICHELLE HICKMAN MD, Ot Z91.5 PERSONAL HISTORY OF SELF-HARM 10/20/2017 HATTIE CHRISTIANSON MD, Ot D47.3 ESSENTIAL (HEMORRHAGIC) THROMBOCYTHEMIA 10/20/2017 HATTIE CHRISTIANSON MD, Ot D72.829 ELEVATED WHITE BLOOD CELL COUNT, UNSPECI 10/20/2017 HATTIE CHRISTIANSON MD Ot E10.10 TYPE 1 DIABETES MELLITUS WITH KETOACIDOS 10/20/2017 HATTIE CHRISTIANSON MD, Ot E78.5 HYPERLIPIDEMIA, UNSPECIFIED 10/20/2017 HATTIE CHRISTIANSON MD Ot E86.0 DEHYDRATION 10/20/2017 HATTIE CHRISTIANSON MD, Ot E87.1 HYPO-OSMOLALITY AND HYPONATREMIA 10/20/2017 HATTIE CHRISTIANSON MD Ot E87.5 HYPERKALEMIA 10/20/2017 HATTIE CHRISTIANSON MD Ot F17.210 NICOTINE DEPENDENCE, CIGARETTES, UNCOMPL 10/20/2017 HATTIE CHRISTIANSON MD, Ot F20.9 SCHIZOPHRENIA, UNSPECIFIED 10/20/2017 HATTIE CHRISTIANSON MD, Ot F31.9 BIPOLAR DISORDER, UNSPECIFIED 10/20/2017 HATTIE CHRISTIANSON MD Ot 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 10/20/2017 HATTIE CHRISTIANSON MD Ot I10 ESSENTIAL (PRIMARY) HYPERTENSION 10/20/2017 HATTIE CHRISTIANSON MD Ot K21.9 GASTRO-ESOPHAGEAL REFLUX DISEASE WITHOUT 10/20/2017 HATTIE CHRISTIANSON MD Ot K44.9 DIAPHRAGMATIC HERNIA WITHOUT OBSTRUCTION 10/20/2017 HATTIE CHRISTIANSON MD, Ot M54.6 PAIN IN THORACIC SPINE 10/20/2017 HATTIE CHRISTIANSON MD, Ot N17.9 ACUTE KIDNEY FAILURE, UNSPECIFIED 10/20/2017 HATTIE CHRISTIANSON MD Ot R74.8 ABNORMAL LEVELS OF OTHER SERUM ENZYMES 10/20/2017 HATTIE CHRISTIANSON MD Ot T44.3X5A ADVERSE EFFECT OF PARASYMPATHOLYTICS AND Procedures Code [place] [address] MICRO ALBUMIN-IN HOUSE 05/07/2012 08135 A1C (IN-HOUSE) 05/07/2012 15808 MICROALBUMIN 05/07/2012 TYLERCELESTE DALTON 05/12/2012 68658 A1C (IN-HOUSE) 08/26/2012 75929 US HEAD (SOFT TISSUE) ULTRASOUND, HEAD 08/26/2012 JEFERSON CHAVEZLEOLA 08/26/2012 General S Zack Benja 08/28/2012 62478 A1C (IN-HOUSE) 11/26/2012 95722 ROUTINE VENIPUNCTURE 11/27/2012 31568 UA LONG DIP 11/27/2012 73236 MICRO ALBUMIN-IN HOUSE 11/27/2012 47872 CBC 11/27/2012 97940 CMP 11/27/2012 66185 LIPID PANEL 11/27/2012 [id number] GFR CALC (RESULT ONLY) 11/27/2012 61953 GLUCOSE FINGER STICK 07/08/2013 76184 UA LONG DIP 07/08/2013 09990 A1C (IN-HOUSE) 07/08/2013 85143 OXIMETRY 07/13/2013 83906 MICRO ALBUMIN-IN HOUSE 07/22/2013 98634 ROUTINE VENIPUNCTURE 12/14/2013 46692 A1C (IN-HOUSE) 12/14/2013 24136 URINE DRUG SCREEN (IN-HOUSE ) 12/14/2013 71470 MICRO ALBUMIN-IN HOUSE 12/14/2013 [id number] GFR CALC (RESULT ONLY) 12/14/2013 43032 CMP 12/14/2013 13452 LIPID PANEL 12/14/2013 19732 MICROALBUMIN 12/14/2013 48947 ETHANOL SCREEN 12/14/2013 17307 A1C (IN-HOUSE) 02/03/2014 Results Test Result Range Comp. Metabolic Panel (14) - 11/11/16 11:31 Glucose, Serum 62 mg/dL 65-99 BUN 16 mg/dL 6-24 Creatinine, Serum 0.81 mg/dL 0.76-1.27 eGFR If NonAfricn Am 107 mL/min/1.73 >59 eGFR If Africn Am 124 mL/min/1.73 >59 BUN/Creatinine Ratio 20 9-20 Sodium, Serum 144 mmol/L 134-144 Potassium, Serum 4.0 mmol/L 3.5-5.2 Chloride, Serum 103 mmol/L 96-106 Carbon Dioxide, Total 27 mmol/L 18-29 Calcium, Serum 8.9 mg/dL 8.7-10.2 Protein, Total, Serum 5.3 g/dL 6.0-8.5 Albumin, Serum 3.6 g/dL 3.5-5.5 Globulin, Total 1.7 g/dL 1.5-4.5 A/G Ratio 2.1 1.2-2.2 Bilirubin, Total <0.2 mg/dL 0.0-1.2 Alkaline Phosphatase, S 87 IU/L 39-117 AST (SGOT) 45 IU/L 0-40 ALT (SGPT) 25 IU/L 0-44 Lipid Panel - 11/11/16 11:31 Cholesterol, Total 183 mg/dL 100-199 Triglycerides 215 mg/dL 0-149 HDL Cholesterol 44 mg/dL >39 VLDL Cholesterol [place] 43 mg/dL 5-40 LDL Cholesterol Calc 96 mg/dL 0-99 Prostate-Specific Ag, Serum - 11/11/16 11:31 Prostate Specific Ag, Serum 0.5 ng/mL 0.0-4.0 Complete blood count (CBC) with automated white blood cell (WBC) differential - 11/12/16 11:45 Blood leukocytes automated count (number/volume) 11.1 10*3/uL 4.3-11.0 Blood erythrocytes automated count (number/volume) 4.54 10*6/uL 4.35-5.85 Venous blood hemoglobin measurement (mass/volume) 13.5 g/dL 13.3-17.7 Blood hematocrit (volume fraction) 41 % 40-54 Automated erythrocyte mean corpuscular volume 91 [foz_us] 80-99 Automated erythrocyte mean corpuscular hemoglobin (mass per erythrocyte) 30 pg 25-34 Automated erythrocyte mean corpuscular hemoglobin concentration measurement ( mass/volume) 33 g/dL 32-36 Automated erythrocyte distribution width ratio 15.7 % 10.0-14.5 Automated blood platelet count (count/volume) 278 10*3/uL 130-400 Automated blood platelet mean volume measurement 10.3 [foz_us] 7.4-10.4 Automated blood neutrophils/100 leukocytes 75 % 42-75 Automated blood lymphocytes/100 leukocytes 16 % 12-44 Blood monocytes/100 leukocytes 8 % 0-12 Automated blood eosinophils/100 leukocytes 1 % 0-10 Automated blood basophils/100 leukocytes 0 % 0-10 Blood neutrophils automated count (number/volume) 8.4 10*3 1.8-7.8 Blood lymphocytes automated count (number/volume) 1.7 10*3 1.0-4.0 Blood monocytes automated count (number/volume) 0.9 10*3 0.0-1.0 Automated eosinophil count 0.1 10*3/uL 0.0-0.3 Automated blood basophil count (count/volume) 0.0 10*3/uL 0.0-0.1 Comprehensive metabolic panel - 11/12/16 11:45 Serum or plasma sodium measurement (moles/volume) 144 mmol/L 135-145 Serum or plasma potassium measurement (moles/volume) 3.2 mmol/L 3.6-5.0 Serum or plasma chloride measurement (moles/volume) 108 mmol/L 98-107 Carbon dioxide 30 mmol/L 21-32 Serum or plasma anion gap determination (moles/volume) 6 mmol/L 5-14 Serum or plasma urea nitrogen measurement (mass/volume) 11 mg/dL 7-18 Serum or plasma creatinine measurement (mass/volume) 0.75 mg/dL 0.60-1.30 Serum or plasma urea nitrogen/creatinine mass ratio 15 NRG Serum or plasma creatinine measurement with calculation of estimated glomerular filtration rate > NRG Serum or plasma glucose measurement (mass/volume) 38 mg/dL 70-105 Serum or plasma calcium measurement (mass/volume) 9.2 mg/dL 8.5-10.1 Serum or plasma total bilirubin measurement (mass/volume) 0.2 mg/dL 0.1-1.0 Serum or plasma alkaline phosphatase measurement (enzymatic activity/volume) 82 U/L 40-136 Serum or plasma aspartate aminotransferase measurement (enzymatic activity/ volume) 50 U/L 5-34 Serum or plasma alanine aminotransferase measurement (enzymatic activity/volume ) 36 U/L 0-55 Serum or plasma protein measurement (mass/volume) 5.8 g/dL 6.4-8.2 Serum or plasma albumin measurement (mass/volume) 3.6 g/dL 3.2-4.5 Serum or plasma C reactive protein measurement (mass/volume) - 11/12/16 11:45 Serum or plasma C reactive protein measurement (mass/volume) 0.24 mg /dL 0.00-0.50 Serum or plasma lithium measurement (moles/volume) - 11/12/16 11:45 BNP level 71.7 pg/mL <100.0 Capillary blood glucose measurement by glucometer (mass/volume) - 11/12/16 11: 55 Capillary blood glucose measurement by glucometer (mass/volume) 37 mg/dL 70-110 Complete urinalysis with reflex to culture - 11/12/16 12:00 Urine color determination YELLOW NRG Urine clarity determination CLEAR NRG Urine pH measurement by test strip 6 5-9 Specific gravity of urine by test strip 1.020 1.016- 1.022 Urine protein assay by test strip, semi-quantitative NEGATIVE NEGATIVE Urine glucose detection by automated test strip NEGATIVE NEGATIVE Erythrocytes detection in urine sediment by light microscopy NEGATIVE NEGATIVE Urine ketones detection by automated test strip NEGATIVE NEGATIVE Urine nitrite detection by test strip NEGATIVE NEGATIVE Urine total bilirubin detection by test strip NEGATIVE NEGATIVE Urine urobilinogen measurement by automated test strip (mass/volume) NORMAL NORMAL Urine leukocyte esterase detection by dipstick NEGATIVE NEGATIVE Automated urine sediment erythrocyte count by microscopy (number/high power field) NONE NRG Automated urine sediment leukocyte count by microscopy (number/high power field ) RARE NRG Bacteria detection in urine sediment by light microscopy TRACE NRG Crystals detection in urine sediment by light microscopy NONE NRG Casts detection in urine sediment by light microscopy NONE NRG Mucus detection in urine sediment by light microscopy SMALL NRG Complete urinalysis with reflex to culture NO NRG Capillary blood glucose measurement by glucometer (mass/volume) - 11/12/16 12: 38 Capillary blood glucose measurement by glucometer (mass/volume) 133 mg/dL 70-110 Complete urinalysis with reflex to culture - 01/27/17 20:49 Urine color determination YELLOW NRG Urine clarity determination CLEAR NRG Urine pH measurement by test strip 5 5-9 Specific gravity of urine by test strip 1.010 1.016- 1.022 Urine protein assay by test strip, semi-quantitative NEGATIVE NEGATIVE Urine glucose detection by automated test strip 4+ NEGATIVE Erythrocytes detection in urine sediment by light microscopy NEGATIVE NEGATIVE Urine ketones detection by automated test strip 3+ NEGATIVE Urine nitrite detection by test strip NEGATIVE NEGATIVE Urine total bilirubin detection by test strip NEGATIVE NEGATIVE Urine urobilinogen measurement by automated test strip (mass/volume) NORMAL NORMAL Urine leukocyte esterase detection by dipstick NEGATIVE NEGATIVE Automated urine sediment erythrocyte count by microscopy (number/high power field) NONE NRG Automated urine sediment leukocyte count by microscopy (number/high power field ) NONE NRG Bacteria detection in urine sediment by light microscopy NONE NRG Squamous epithelial cells detection in urine sediment by light microscopy RARE NRG Crystals detection in urine sediment by light microscopy NONE NRG Casts detection in urine sediment by light microscopy NONE NRG Mucus detection in urine sediment by light microscopy NEGATIVE NRG Complete urinalysis with reflex to culture NO NRG Urine drug screening test - 01/27/17 20:49 Urine phencyclidine detection by screening method NEGATIVE NEGATIVE Urine benzodiazepines detection by screening method NEGATIVE NEGATIVE Urine cocaine detection NEGATIVE NEGATIVE Urine amphetamines detection by screening method NEGATIVE NEGATIVE Urine methamphetamine detection by screening method NEGATIVE NEGATIVE Urine cannabinoids detection by screening method NEGATIVE NEGATIVE Urine opiates detection by screening method NEGATIVE NEGATIVE Urine barbiturates detection NEGATIVE NEGATIVE Screening urine tricyclic antidepressants detection NEGATIVE NEGATIVE Urine methadone detection by screening method NEGATIVE NEGATIVE Urine oxycodone detection NEGATIVE NEGATIVE Urine propoxyphene detection NEGATIVE NEGATIVE Complete blood count (CBC) with automated white blood cell (WBC) differential - 01/27/17 21:14 Blood leukocytes automated count (number/volume) 11.3 10*3/uL 4.3-11.0 Blood erythrocytes automated count (number/volume) 5.36 10*6/uL 4.35-5.85 Venous blood hemoglobin measurement (mass/volume) 16.3 g/dL 13.3-17.7 Blood hematocrit (volume fraction) 49 % 40-54 Automated erythrocyte mean corpuscular volume 91 [foz_us] 80-99 Automated erythrocyte mean corpuscular hemoglobin (mass per erythrocyte) 30 pg 25-34 Automated erythrocyte mean corpuscular hemoglobin concentration measurement ( mass/volume) 34 g/dL 32-36 Automated erythrocyte distribution width ratio 11.9 % 10.0-14.5 Automated blood platelet count (count/volume) 264 10*3/uL 130-400 Automated blood platelet mean volume measurement 10.2 [foz_us] 7.4-10.4 Automated blood neutrophils/100 leukocytes 77 % 42-75 Automated blood lymphocytes/100 leukocytes 16 % 12-44 Blood monocytes/100 leukocytes 5 % 0-12 Automated blood eosinophils/100 leukocytes 1 % 0-10 Automated blood basophils/100 leukocytes 0 % 0-10 Blood neutrophils automated count (number/volume) 8.7 10*3 1.8-7.8 Blood lymphocytes automated count (number/volume) 1.8 10*3 1.0-4.0 Blood monocytes automated count (number/volume) 0.6 10*3 0.0-1.0 Automated eosinophil count 0.1 10*3/uL 0.0-0.3 Automated blood basophil count (count/volume) 0.0 10*3/uL 0.0-0.1 Comprehensive metabolic panel - 01/27/17 21:14 Serum or plasma sodium measurement (moles/volume) 133 mmol/L 135-145 Serum or plasma potassium measurement (moles/volume) 4.8 mmol/L 3.6-5.0 Serum or plasma chloride measurement (moles/volume) 97 mmol/L 98-107 Carbon dioxide 19 mmol/L 21-32 Serum or plasma anion gap determination (moles/volume) 17 mmol/L 5-14 Serum or plasma urea nitrogen measurement (mass/volume) 21 mg/dL 7-18 Serum or plasma creatinine measurement (mass/volume) 1.47 mg/dL 0.60-1.30 Serum or plasma urea nitrogen/creatinine mass ratio 14 NRG Serum or plasma creatinine measurement with calculation of estimated glomerular filtration rate 52 NRG Serum or plasma glucose measurement (mass/volume) 576 mg/dL 70-105 Serum or plasma calcium measurement (mass/volume) 9.7 mg/dL 8.5-10.1 Serum or plasma total bilirubin measurement (mass/volume) 0.3 mg/dL 0.1-1.0 Serum or plasma alkaline phosphatase measurement (enzymatic activity/volume) 102 U/L 40-136 Serum or plasma aspartate aminotransferase measurement (enzymatic activity/ volume) 16 U/L 5-34 Serum or plasma alanine aminotransferase measurement (enzymatic activity/volume ) 21 U/L 0-55 Serum or plasma protein measurement (mass/volume) 7.3 g/dL 6.4-8.2 Serum or plasma albumin measurement (mass/volume) 4.4 g/dL 3.2-4.5 Serum or plasma thyrotropin measurement by detection limit <=0.05 miu/l (units/ volume) - 01/27/17 21:14 Serum or plasma thyrotropin measurement by detection limit <=0.05 miu/l (units/ volume) 1.65 u[iU]/mL 0.35-4.94 Serum or plasma ethanol measurement (mass/volume) - 01/27/17 21:14 Serum or plasma ethanol measurement (mass/volume) < mg/dL <10 Capillary blood glucose measurement by glucometer (mass/volume) - 01/27/17 22: 37 Capillary blood glucose measurement by glucometer (mass/volume) 487 mg/dL 70-110 Capillary blood glucose measurement by glucometer (mass/volume) - 01/27/17 23: 10 Capillary blood glucose measurement by glucometer (mass/volume) 344 mg/dL 70-110 Complete blood count (CBC) with automated white blood cell (WBC) differential - 05/12/17 02:45 Blood leukocytes automated count (number/volume) 8.5 10*3/uL 4.3-11.0 Blood erythrocytes automated count (number/volume) 3.96 10*6/uL 4.35-5.85 Venous blood hemoglobin measurement (mass/volume) 12.7 g/dL 13.3-17.7 Blood hematocrit (volume fraction) 39 % 40-54 Automated erythrocyte mean corpuscular volume 97 [foz_us] 80-99 Automated erythrocyte mean corpuscular hemoglobin (mass per erythrocyte) 32 pg 25-34 Automated erythrocyte mean corpuscular hemoglobin concentration measurement ( mass/volume) 33 g/dL 32-36 Automated erythrocyte distribution width ratio 15.1 % 10.0-14.5 Automated blood platelet count (count/volume) 341 10*3/uL 130-400 Automated blood platelet mean volume measurement 9.0 [foz_us] 7.4-10.4 Automated blood neutrophils/100 leukocytes 67 % 42-75 Automated blood lymphocytes/100 leukocytes 23 % 12-44 Blood monocytes/100 leukocytes 7 % 0-12 Automated blood eosinophils/100 leukocytes 2 % 0-10 Automated blood basophils/100 leukocytes 1 % 0-10 Blood neutrophils automated count (number/volume) 5.7 10*3 1.8-7.8 Blood lymphocytes automated count (number/volume) 2.0 10*3 1.0-4.0 Blood monocytes automated count (number/volume) 0.6 10*3 0.0-1.0 Automated eosinophil count 0.2 10*3/uL 0.0-0.3 Automated blood basophil count (count/volume) 0.1 10*3/uL 0.0-0.1 PT panel in platelet poor plasma by coagulation assay - 05/12/17 02:45 Prothrombin time (PT) in platelet poor plasma by coagulation assay 13.5 s 12.2-14.7 INR in platelet poor plasma or blood by coagulation assay 1.0 0.8-1.4 Activated partial thromboplastin time (aPTT) in platelet poor plasma bycoagulation assay - 05/12/17 02:45 Activated partial thromboplastin time (aPTT) in platelet poor plasma bycoagulation assay 29 s 24-35 Comprehensive metabolic panel - 05/12/17 02:45 Serum or plasma sodium measurement (moles/volume) 140 mmol/L 135-145 Serum or plasma potassium measurement (moles/volume) 4.0 mmol/L 3.6-5.0 Serum or plasma chloride measurement (moles/volume) 104 mmol/L 98-107 Carbon dioxide 24 mmol/L 21-32 Serum or plasma anion gap determination (moles/volume) 12 mmol/L 5-14 Serum or plasma urea nitrogen measurement (mass/volume) 17 mg/dL 7-18 Serum or plasma creatinine measurement (mass/volume) 0.93 mg/dL 0.60-1.30 Serum or plasma urea nitrogen/creatinine mass ratio 18 NRG Serum or plasma creatinine measurement with calculation of estimated glomerular filtration rate > NRG Serum or plasma glucose measurement (mass/volume) 161 mg/dL 70-105 Serum or plasma calcium measurement (mass/volume) 9.0 mg/dL 8.5-10.1 Serum or plasma total bilirubin measurement (mass/volume) 0.4 mg/dL 0.1-1.0 Serum or plasma alkaline phosphatase measurement (enzymatic activity/volume) 100 U/L 40-136 Serum or plasma aspartate aminotransferase measurement (enzymatic activity/ volume) 20 U/L 5-34 Serum or plasma alanine aminotransferase measurement (enzymatic activity/volume ) 27 U/L 0-55 Serum or plasma protein measurement (mass/volume) 5.9 g/dL 6.4-8.2 Serum or plasma albumin measurement (mass/volume) 3.8 g/dL 3.2-4.5 Magnesium - 05/12/17 02:45 Magnesium 1.8 mg/dL 1.8-2.4 Lipase - 05/12/17 02:45 Lipase 20 U/L 8-78 Serum or plasma troponin i.cardiac measurement (mass/volume) - 05/12/17 02:45 Serum or plasma troponin i.cardiac measurement (mass/volume) < ng/ mL <0.30 Myoglobin, serum - 05/12/17 02:45 Myoglobin, serum 34.4 ng/mL 10.0-92.0 Complete urinalysis with reflex to culture - 05/12/17 02:55 Urine color determination YELLOW NRG Urine clarity determination CLEAR NRG Urine pH measurement by test strip 5 5-9 Specific gravity of urine by test strip 1.020 1.016- 1.022 Urine protein assay by test strip, semi-quantitative NEGATIVE NEGATIVE Urine glucose detection by automated test strip NEGATIVE NEGATIVE Erythrocytes detection in urine sediment by light microscopy NEGATIVE NEGATIVE Urine ketones detection by automated test strip 1+ NEGATIVE Urine nitrite detection by test strip NEGATIVE NEGATIVE Urine total bilirubin detection by test strip NEGATIVE NEGATIVE Urine urobilinogen measurement by automated test strip (mass/volume) NORMAL NORMAL Urine leukocyte esterase detection by dipstick NEGATIVE NEGATIVE Automated urine sediment erythrocyte count by microscopy (number/high power field) NONE NRG Automated urine sediment leukocyte count by microscopy (number/high power field ) NONE NRG Bacteria detection in urine sediment by light microscopy NEGATIVE NRG Squamous epithelial cells detection in urine sediment by light microscopy RARE NRG Crystals detection in urine sediment by light microscopy NONE NRG Casts detection in urine sediment by light microscopy NONE NRG Mucus detection in urine sediment by light microscopy NEGATIVE NRG Complete urinalysis with reflex to culture NO NRG Serum or plasma troponin i.cardiac measurement (mass/volume) - 05/12/17 06:51 Serum or plasma troponin i.cardiac measurement (mass/volume) < ng/ mL <0.30 Complete blood count (CBC) with automated white blood cell (WBC) differential - 10/18/17 02:50 Blood leukocytes automated count (number/volume) 27.9 10*3/uL 4.3-11.0 Blood erythrocytes automated count (number/volume) 5.42 10*6/uL 4.35-5.85 Venous blood hemoglobin measurement (mass/volume) 16.6 g/dL 13.3-17.7 Blood hematocrit (volume fraction) 48 % 40-54 Automated erythrocyte mean corpuscular volume 89 [foz_us] 80-99 Automated erythrocyte mean corpuscular hemoglobin (mass per erythrocyte) 31 pg 25-34 Automated erythrocyte mean corpuscular hemoglobin concentration measurement ( mass/volume) 34 g/dL 32-36 Automated erythrocyte distribution width ratio 14.9 % 10.0-14.5 Automated blood platelet count (count/volume) 512 10*3/uL 130-400 Automated blood platelet mean volume measurement 10.6 [foz_us] 7.4-10.4 Automated blood neutrophils/100 leukocytes 89 % 42-75 Automated blood lymphocytes/100 leukocytes 6 % 12-44 Blood monocytes/100 leukocytes 4 % 0-12 Automated blood eosinophils/100 leukocytes 0 % 0-10 Automated blood basophils/100 leukocytes 0 % 0-10 Blood neutrophils automated count (number/volume) 24.9 10*3 1.8-7.8 Blood lymphocytes automated count (number/volume) 1.8 10*3 1.0-4.0 Blood monocytes automated count (number/volume) 1.2 10*3 0.0-1.0 Automated eosinophil count 0.0 10*3/uL 0.0-0.3 Automated blood basophil count (count/volume) 0.0 10*3/uL 0.0-0.1 Blood manual differential performed detection - 10/18/17 02:50 Blood monocytes/100 leukocytes 2 % NRG Manual blood segmented neutrophils/100 leukocytes 88 % NRG Blood band neutrophils/100 leukocytes 6 % NRG Manual blood lymphocytes/100 leukocytes 4 % NRG Blood erythrocyte morphology finding identification NORMAL [facility] Comprehensive metabolic panel - 10/18/17 02:50 Serum or plasma sodium measurement (moles/volume) 127 mmol/L 135-145 Serum or plasma potassium measurement (moles/volume) 6.5 mmol/L 3.6-5.0 Serum or plasma chloride measurement (moles/volume) 92 mmol/L 98-107 Carbon dioxide < mmol/L 21-32 Serum or plasma anion gap determination (moles/volume) 30 mmol/L 5-14 Serum or plasma urea nitrogen measurement (mass/volume) 20 mg/dL 7-18 Serum or plasma creatinine measurement (mass/volume) 2.31 mg/dL 0.60-1.30 Serum or plasma urea nitrogen/creatinine mass ratio 9 NRG Serum or plasma creatinine measurement with calculation of estimated glomerular filtration rate 31 NRG Serum or plasma glucose measurement (mass/volume) 726 mg/dL 70-105 Serum or plasma calcium measurement (mass/volume) 9.2 mg/dL 8.5-10.1 Serum or plasma total bilirubin measurement (mass/volume) 0.3 mg/dL 0.1-1.0 Serum or plasma alkaline phosphatase measurement (enzymatic activity/volume) 167 U/L 40-136 Serum or plasma aspartate aminotransferase measurement (enzymatic activity/ volume) 20 U/L 5-34 Serum or plasma alanine aminotransferase measurement (enzymatic activity/volume ) 23 U/L 0-55 Serum or plasma protein measurement (mass/volume) 8.0 g/dL 6.4-8.2 Serum or plasma albumin measurement (mass/volume) 4.6 g/dL 3.2-4.5 Magnesium - 10/18/17 02:50 Magnesium 2.4 mg/dL 1.8-2.4 Serum or plasma ethanol measurement (mass/volume) - 10/18/17 02:50 Serum or plasma ethanol measurement (mass/volume) < mg/dL <10 Serum or plasma C reactive protein measurement (mass/volume) - 10/18/17 02:50 Serum or plasma C reactive protein measurement (mass/volume) 1.88 mg /dL 0.00-0.50 Complete urinalysis with reflex to culture - 10/18/17 03:35 Urine color determination YELLOW NRG Urine clarity determination CLEAR NRG Urine pH measurement by test strip 5 5-9 Specific gravity of urine by test strip 1.020 1.016- 1.022 Urine protein assay by test strip, semi-quantitative 2+ NEGATIVE Urine glucose detection by automated test strip 4+ NEGATIVE Erythrocytes detection in urine sediment by light microscopy 2+ NEGATIVE Urine ketones detection by automated test strip 4+ NEGATIVE Urine nitrite detection by test strip NEGATIVE NEGATIVE Urine total bilirubin detection by test strip NEGATIVE NEGATIVE Urine urobilinogen measurement by automated test strip (mass/volume) NORMAL NORMAL Urine leukocyte esterase detection by dipstick NEGATIVE NEGATIVE Automated urine sediment erythrocyte count by microscopy (number/high power field) [HPF] NRG Automated urine sediment leukocyte count by microscopy (number/high power field ) NONE NRG Bacteria detection in urine sediment by light microscopy NEGATIVE NRG Squamous epithelial cells detection in urine sediment by light microscopy 0-2 NRG Crystals detection in urine sediment by light microscopy NONE NRG Casts detection in urine sediment by light microscopy NONE NRG Mucus detection in urine sediment by light microscopy MODERATE NRG Complete urinalysis with reflex to culture NO NRG Capillary blood glucose measurement by glucometer (mass/volume) - 10/18/17 03: 53 Capillary blood glucose measurement by glucometer (mass/volume) 454 mg/dL 70-110 Methicillin resistant Staphylococcus aureus (MRSA) screening culture - 04:45 Methicillin resistant Staphylococcus aureus (MRSA) screening culture NEG NRG Capillary blood glucose measurement by glucometer (mass/volume) - 10/18/17 04: 57 Capillary blood glucose measurement by glucometer (mass/volume) 367 mg/dL 70-110 Whole blood basic metabolic panel - 10/18/17 05:20 Serum or plasma sodium measurement (moles/volume) 133 mmol/L 135-145 Serum or plasma potassium measurement (moles/volume) 5.3 mmol/L 3.6-5.0 Serum or plasma chloride measurement (moles/volume) 107 mmol/L 98-107 Carbon dioxide < mmol/L - Serum or plasma anion gap determination (moles/volume) 21 mmol/L 5-14 Serum or plasma urea nitrogen measurement (mass/volume) 17 mg/dL -18 Serum or plasma creatinine measurement (mass/volume) 1.67 mg/dL 0.60-1.30 Serum or plasma urea nitrogen/creatinine mass ratio 10 NRG Serum or plasma creatinine measurement with calculation of estimated glomerular filtration rate 45 NRG Serum or plasma glucose measurement (mass/volume) 398 mg/dL 70-105 Serum or plasma calcium measurement (mass/volume) 7.7 mg/dL 8.5-10.1 Capillary blood glucose measurement by glucometer (mass/volume) - 10/18/17 06: 07 Capillary blood glucose measurement by glucometer (mass/volume) 305 mg/dL 70-110 Capillary blood glucose measurement by glucometer (mass/volume) - 10/18/17 06: 58 Capillary blood glucose measurement by glucometer (mass/volume) 249 mg/dL 70-110 Whole blood basic metabolic panel - 10/18/17 07:15 Serum or plasma sodium measurement (moles/volume) 133 mmol/L 135-145 Serum or plasma potassium measurement (moles/volume) 4.8 mmol/L 3.6-5.0 Serum or plasma chloride measurement (moles/volume) 110 mmol/L 98-107 Carbon dioxide 6 mmol/L -32 Serum or plasma anion gap determination (moles/volume) 17 mmol/L 5-14 Serum or plasma urea nitrogen measurement (mass/volume) 15 mg/dL -18 Serum or plasma creatinine measurement (mass/volume) 1.58 mg/dL 0.60-1.30 Serum or plasma urea nitrogen/creatinine mass ratio 9 NRG Serum or plasma creatinine measurement with calculation of estimated glomerular filtration rate 47 NRG Serum or plasma glucose measurement (mass/volume) 244 mg/dL 70-105 Serum or plasma calcium measurement (mass/volume) 7.5 mg/dL 8.5-10.1 Capillary blood glucose measurement by glucometer (mass/volume) - 10/18/17 07: 58 Capillary blood glucose measurement by glucometer (mass/volume) 211 mg/dL 70-110 Capillary blood glucose measurement by glucometer (mass/volume) - 10/18/17 09: 11 Capillary blood glucose measurement by glucometer (mass/volume) 193 mg/dL 70-110 Capillary blood glucose measurement by glucometer (mass/volume) - 10/18/17 10: 00 Capillary blood glucose measurement by glucometer (mass/volume) 185 mg/dL 70-110 Capillary blood glucose measurement by glucometer (mass/volume) - 10/18/17 11: 07 Capillary blood glucose measurement by glucometer (mass/volume) 147 mg/dL 70-110 Whole blood basic metabolic panel - 10/18/17 11:20 Serum or plasma sodium measurement (moles/volume) 133 mmol/L 135-145 Serum or plasma potassium measurement (moles/volume) 4.2 mmol/L 3.6-5.0 Serum or plasma chloride measurement (moles/volume) 110 mmol/L 98-107 Carbon dioxide 12 mmol/L 21-32 Serum or plasma anion gap determination (moles/volume) 11 mmol/L 5-14 Serum or plasma urea nitrogen measurement (mass/volume) 12 mg/dL 7-18 Serum or plasma creatinine measurement (mass/volume) 1.48 mg/dL 0.60-1.30 Serum or plasma urea nitrogen/creatinine mass ratio 8 NRG Serum or plasma creatinine measurement with calculation of estimated glomerular filtration rate 51 NRG Serum or plasma glucose measurement (mass/volume) 156 mg/dL 70-105 Serum or plasma calcium measurement (mass/volume) 7.8 mg/dL 8.5-10.1 Capillary blood glucose measurement by glucometer (mass/volume) - 10/18/17 11: 40 Capillary blood glucose measurement by glucometer (mass/volume) 147 mg/dL 70-110 Capillary blood glucose measurement by glucometer (mass/volume) - 10/18/17 12: 24 Capillary blood glucose measurement by glucometer (mass/volume) 146 mg/dL 70-110 Capillary blood glucose measurement by glucometer (mass/volume) - 10/18/17 13: 33 Capillary blood glucose measurement by glucometer (mass/volume) 132 mg/dL 70-110 Capillary blood glucose measurement by glucometer (mass/volume) - 10/18/17 14: 11 Capillary blood glucose measurement by glucometer (mass/volume) 115 mg/dL 70-110 Capillary blood glucose measurement by glucometer (mass/volume) - 10/18/17 15: 02 Capillary blood glucose measurement by glucometer (mass/volume) 117 mg/dL 70-110 Capillary blood glucose measurement by glucometer (mass/volume) - 10/18/17 15: 32 Capillary blood glucose measurement by glucometer (mass/volume) 108 mg/dL 70-110 Capillary blood glucose measurement by glucometer (mass/volume) - 10/18/17 16: 34 Capillary blood glucose measurement by glucometer (mass/volume) 136 mg/dL 70-110 Capillary blood glucose measurement by glucometer (mass/volume) - 10/18/17 17: 01 Capillary blood glucose measurement by glucometer (mass/volume) 122 mg/dL 70-110 Capillary blood glucose measurement by glucometer (mass/volume) - 10/18/17 17: 55 Capillary blood glucose measurement by glucometer (mass/volume) 142 mg/dL 70-110 Whole blood basic metabolic panel - 10/18/17 18:08 Serum or plasma sodium measurement (moles/volume) 132 mmol/L 135-145 Serum or plasma potassium measurement (moles/volume) 4.0 mmol/L 3.6-5.0 Serum or plasma chloride measurement (moles/volume) 109 mmol/L 98-107 Carbon dioxide 14 mmol/L 21-32 Serum or plasma anion gap determination (moles/volume) 9 mmol/L 5-14 Serum or plasma urea nitrogen measurement (mass/volume) 9 mg/dL 7-18 Serum or plasma creatinine measurement (mass/volume) 1.27 mg/dL 0.60-1.30 Serum or plasma urea nitrogen/creatinine mass ratio 7 NRG Serum or plasma creatinine measurement with calculation of estimated glomerular filtration rate > NRG Serum or plasma glucose measurement (mass/volume) 177 mg/dL 70-105 Serum or plasma calcium measurement (mass/volume) 8.2 mg/dL 8.5-10.1 Serum or plasma troponin i.cardiac measurement (mass/volume) - 10/18/17 18:08 Serum or plasma troponin i.cardiac measurement (mass/volume) < ng/ mL <0.30 Capillary blood glucose measurement by glucometer (mass/volume) - 10/18/17 18: 46 Capillary blood glucose measurement by glucometer (mass/volume) 192 mg/dL 70-110 Capillary blood glucose measurement by glucometer (mass/volume) - 10/18/17 20: 32 Capillary blood glucose measurement by glucometer (mass/volume) 248 mg/dL 70-110 Capillary blood glucose measurement by glucometer (mass/volume) - 10/18/17 22: 05 Capillary blood glucose measurement by glucometer (mass/volume) 205 mg/dL 70-110 Capillary blood glucose measurement by glucometer (mass/volume) - 10/18/17 23: 23 Capillary blood glucose measurement by glucometer (mass/volume) 194 mg/dL 70-110 Serum or plasma troponin i.cardiac measurement (mass/volume) - 10/18/17 23:50 Serum or plasma troponin i.cardiac measurement (mass/volume) < ng/ mL <0.30 Capillary blood glucose measurement by glucometer (mass/volume) - 10/19/17 00: 15 Capillary blood glucose measurement by glucometer (mass/volume) 193 mg/dL 70-110 Capillary blood glucose measurement by glucometer (mass/volume) - 10/19/17 01: 05 Capillary blood glucose measurement by glucometer (mass/volume) 165 mg/dL 70-110 Capillary blood glucose measurement by glucometer (mass/volume) - 10/19/17 02: 08 Capillary blood glucose measurement by glucometer (mass/volume) 152 mg/dL 70-110 Capillary blood glucose measurement by glucometer (mass/volume) - 10/19/17 03: 07 Capillary blood glucose measurement by glucometer (mass/volume) 132 mg/dL 70-110 Complete blood count (CBC) with automated white blood cell (WBC) differential - 10/19/17 03:30 Blood leukocytes automated count (number/volume) 10.2 10*3/uL 4.3-11.0 Blood erythrocytes automated count (number/volume) 4.45 10*6/uL 4.35-5.85 Venous blood hemoglobin measurement (mass/volume) 13.3 g/dL 13.3-17.7 Blood hematocrit (volume fraction) 39 % 40-54 Automated erythrocyte mean corpuscular volume 87 [foz_us] 80-99 Automated erythrocyte mean corpuscular hemoglobin (mass per erythrocyte) 30 pg 25-34 Automated erythrocyte mean corpuscular hemoglobin concentration measurement ( mass/volume) 34 g/dL 32-36 Automated erythrocyte distribution width ratio 13.8 % 10.0-14.5 Automated blood platelet count (count/volume) 259 10*3/uL 130-400 Automated blood platelet mean volume measurement 9.4 [foz_us] 7.4-10.4 Automated blood neutrophils/100 leukocytes 63 % 42-75 Automated blood lymphocytes/100 leukocytes 28 % 12-44 Blood monocytes/100 leukocytes 9 % 0-12 Automated blood eosinophils/100 leukocytes 1 % 0-10 Automated blood basophils/100 leukocytes 0 % 0-10 Blood neutrophils automated count (number/volume) 6.5 10*3 1.8-7.8 Blood lymphocytes automated count (number/volume) 2.8 10*3 1.0-4.0 Blood monocytes automated count (number/volume) 0.9 10*3 0.0-1.0 Automated eosinophil count 0.1 10*3/uL 0.0-0.3 Automated blood basophil count (count/volume) 0.0 10*3/uL 0.0-0.1 Comprehensive metabolic panel - 10/19/17 03:30 Serum or plasma sodium measurement (moles/volume) 138 mmol/L 135-145 Serum or plasma potassium measurement (moles/volume) 3.5 mmol/L 3.6-5.0 Serum or plasma chloride measurement (moles/volume) 114 mmol/L 98-107 Carbon dioxide 18 mmol/L 21-32 Serum or plasma anion gap determination (moles/volume) 6 mmol/L 5-14 Serum or plasma urea nitrogen measurement (mass/volume) 6 mg/dL 7-18 Serum or plasma creatinine measurement (mass/volume) 1.12 mg/dL 0.60-1.30 Serum or plasma urea nitrogen/creatinine mass ratio 5 NRG Serum or plasma creatinine measurement with calculation of estimated glomerular filtration rate > NRG Serum or plasma glucose measurement (mass/volume) 149 mg/dL 70-105 Serum or plasma calcium measurement (mass/volume) 8.5 mg/dL 8.5-10.1 Serum or plasma total bilirubin measurement (mass/volume) 0.5 mg/dL 0.1-1.0 Serum or plasma alkaline phosphatase measurement (enzymatic activity/volume) 96 U/L 40-136 Serum or plasma aspartate aminotransferase measurement (enzymatic activity/ volume) 14 U/L 5-34 Serum or plasma alanine aminotransferase measurement (enzymatic activity/volume ) 14 U/L 0-55 Serum or plasma protein measurement (mass/volume) 5.1 g/dL 6.4-8.2 Serum or plasma albumin measurement (mass/volume) 3.2 g/dL 3.2-4.5 Serum or plasma phosphate measurement (mass/volume) - 10/19/17 03:30 Serum or plasma phosphate measurement (mass/volume) < mg/dL 2.3-4.7 Magnesium - 10/19/17 03:30 Magnesium 1.9 mg/dL 1.8-2.4 Capillary blood glucose measurement by glucometer (mass/volume) - 10/19/17 03: 43 Capillary blood glucose measurement by glucometer (mass/volume) 124 mg/dL 70-110 Capillary blood glucose measurement by glucometer (mass/volume) - 10/19/17 04: 26 Capillary blood glucose measurement by glucometer (mass/volume) 152 mg/dL 70-110 Capillary blood glucose measurement by glucometer (mass/volume) - 10/19/17 05: 18 Capillary blood glucose measurement by glucometer (mass/volume) 206 mg/dL 70-110 Capillary blood glucose measurement by glucometer (mass/volume) - 10/19/17 06: 49 Capillary blood glucose measurement by glucometer (mass/volume) 190 mg/dL 70-110 Capillary blood glucose measurement by glucometer (mass/volume) - 10/19/17 07: 46 Capillary blood glucose measurement by glucometer (mass/volume) 180 mg/dL 70-110 Capillary blood glucose measurement by glucometer (mass/volume) - 10/19/17 08: 48 Capillary blood glucose measurement by glucometer (mass/volume) 137 mg/dL 70-110 Capillary blood glucose measurement by glucometer (mass/volume) - 10/19/17 09: 48 Capillary blood glucose measurement by glucometer (mass/volume) 171 mg/dL 70-110 Capillary blood glucose measurement by glucometer (mass/volume) - 10/19/17 11: 01 Capillary blood glucose measurement by glucometer (mass/volume) 91 mg/dL 70-110 Capillary blood glucose measurement by glucometer (mass/volume) - 10/19/17 12: 45 Capillary blood glucose measurement by glucometer (mass/volume) 126 mg/dL 70-110 Capillary blood glucose measurement by glucometer (mass/volume) - 10/19/17 16: 50 Capillary blood glucose measurement by glucometer (mass/volume) 49 mg/dL 70-110 Capillary blood glucose measurement by glucometer (mass/volume) - 10/19/17 17: 08 Capillary blood glucose measurement by glucometer (mass/volume) 51 mg/dL 70-110 Capillary blood glucose measurement by glucometer (mass/volume) - 10/19/17 17: 43 Capillary blood glucose measurement by glucometer (mass/volume) 80 mg/dL 70-110 Capillary blood glucose measurement by glucometer (mass/volume) - 10/19/17 20: 01 Capillary blood glucose measurement by glucometer (mass/volume) 132 mg/dL 70-110 Capillary blood glucose measurement by glucometer (mass/volume) - 10/20/17 05: 10 Capillary blood glucose measurement by glucometer (mass/volume) 240 mg/dL 70-110 Automated blood complete blood count (hemogram) panel - 10/20/17 05:25 Blood leukocytes automated count (number/volume) 7.1 10*3/uL 4.3-11.0 Blood erythrocytes automated count (number/volume) 4.83 10*6/uL 4.35-5.85 Venous blood hemoglobin measurement (mass/volume) 14.6 g/dL 13.3-17.7 Blood hematocrit (volume fraction) 42 % 40-54 Automated erythrocyte mean corpuscular volume 86 [foz_us] 80-99 Automated erythrocyte mean corpuscular hemoglobin (mass per erythrocyte) 30 pg 25-34 Automated erythrocyte mean corpuscular hemoglobin concentration measurement ( mass/volume) 35 g/dL 32-36 Automated erythrocyte distribution width ratio 13.9 % 10.0-14.5 Automated blood platelet count (count/volume) 230 10*3/uL 130-400 Automated blood platelet mean volume measurement 10.0 [foz_us] 7.4-10.4 Comprehensive metabolic panel - 10/20/17 05:25 Serum or plasma sodium measurement (moles/volume) 142 mmol/L 135-145 Serum or plasma potassium measurement (moles/volume) 3.6 mmol/L 3.6-5.0 Serum or plasma chloride measurement (moles/volume) 113 mmol/L 98-107 Carbon dioxide 22 mmol/L 21-32 Serum or plasma anion gap determination (moles/volume) 7 mmol/L 5-14 Serum or plasma urea nitrogen measurement (mass/volume) 11 mg/dL 7-18 Serum or plasma creatinine measurement (mass/volume) 0.91 mg/dL 0.60-1.30 Serum or plasma urea nitrogen/creatinine mass ratio 12 NRG Serum or plasma creatinine measurement with calculation of estimated glomerular filtration rate > NRG Serum or plasma glucose measurement (mass/volume) 278 mg/dL 70-105 Serum or plasma calcium measurement (mass/volume) 8.7 mg/dL 8.5-10.1 Serum or plasma total bilirubin measurement (mass/volume) 0.5 mg/dL 0.1-1.0 Serum or plasma alkaline phosphatase measurement (enzymatic activity/volume) 109 U/L 40-136 Serum or plasma aspartate aminotransferase measurement (enzymatic activity/ volume) 20 U/L 5-34 Serum or plasma alanine aminotransferase measurement (enzymatic activity/volume ) 18 U/L 0-55 Serum or plasma protein measurement (mass/volume) 5.6 g/dL 6.4-8.2 Serum or plasma albumin measurement (mass/volume) 3.4 g/dL 3.2-4.5 Serum or plasma phosphate measurement (mass/volume) - 10/20/17 05:25 Serum or plasma phosphate measurement (mass/volume) 1.8 mg/dL 2.3-4.7 Magnesium - 10/20/17 05:25 Magnesium 1.9 mg/dL 1.8-2.4 Capillary blood glucose measurement by glucometer (mass/volume) - 10/20/17 11: 01 Capillary blood glucose measurement by glucometer (mass/volume) 474 mg/dL 70-110 Encounters ACCT No. Visit Date/Time Discharge Status Pt. Type Provider Facility Loc./Unit Complaint [id number] 02/03/2014 12:57:00 02/03/2014 23:59:59 [facility] Outpatient CHIRAG CASSIDY APRN [id number] 01/03/2014 12:46:00 01/03/2014 23:59:59 [facility] Outpatient CHIRAG CASSIDY APRN [id number] 12/14/2013 10:33:00 12/14/2013 23:59:59 [facility] Outpatient LEOLA HARRY APRN [id number] 07/23/2013 11:39:00 07/23/2013 23:59:59 CLS Outpatient [place] PATRICIA [place] Jeronimo [id number] 07/08/2013 18:03:00 07/08/2013 23:59:59 CLS Outpatient CHIRAG CASSIDY APRN [id number] 11/27/2012 07:46:00 11/27/2012 23:59:59 CLS Outpatient CHIRAG CASSIDY APRN [id number] 09/21/2012 16:18:00 09/21/2012 23:59:59 CLS Outpatient WON PATRICIA DO [id number] 09/09/2012 13:43:00 09/09/2012 23:59:59 CLS Outpatient WON PATRICIA DO [id number] 08/26/2012 10:08:00 08/26/2012 23:59:59 CLS Outpatient WON PATRICIA DO [id number] 05/12/2012 14:45:00 05/12/2012 23:59:59 CLS Outpatient [id number] 05/07/2012 10:56:00 05/07/2012 23:59:59 CLS Outpatient MARK PATRICIA DOW[place] Jeronimo [id number] 11/10/2012 09:24:00 Document Registration [id number] 11/12/2016 11:08:00 Document Registration [id number] 07/21/2017 09:00:00 07/21/2017 23:59:59 CLS Outpatient CHIRAG CASSIDY APRN [facility] [id number] 10/18/2017 04:13:00 10/20/2017 14:45:00 DIS Inpatient SAMMY ARAGON, HATTIE Hinds [facility] 4TH DKA [id number] 05/12/2017 02:39:00 05/12/2017 09:21:00 DIS Emergency MICHELLE HICKMAN MD [facility] ER CHEST PAIN [id number] 01/27/2017 20:17:00 01/27/2017 23:41:00 DIS Emergency TAMMY ARAGON, SEYMOUR Hdadad [facility] ER DIFF URINATING/ "NERVOUS BREAKDOWN" [id number] 11/12/2016 11:11:00 11/12/2016 13:14:00 DIS Emergency AMBER FRY [facility] ER EYE IS SWOLLEN [id number] 10/09/2015 13:21:00 10/09/2015 14:28:00 DIS Emergency TAMMY ARAGON, SEYMOUR Haddad [facility] ER DIFFICULTY URINATING [id number] 10/13/2014 18:35:00 10/13/2014 21:36:00 DIS Emergency RANDAL ARAGON, EBONY Cote [facility] ER DIFFICULTY URINATING [id number] 07/08/2013 19:22:00 07/09/2013 15:10:00 DIS Inpatient WON PATRICIA DO [facility] ICU HYPERGLYCEMIA, POSS DKA [id number] 05/14/2013 10:03:00 05/16/2013 12:30:00 DIS Inpatient HATTIE CHRISTIANSON MD [facility] 4TH KETOACIDOSIS [id number] 09/30/2012 08:40:00 Document Registration [id number] 08/31/2012 12:07:00 Document Registration [id number] 06/11/2012 18:06:00 Document Registration [id number] 07/18/2011 20:04:00 Document Registration [id number] 07/15/2011 13:17:00 Document Registration [id number] 11/11/2010 16:05:00 Document Registration [id number] 10/14/2014 06:39:29 ACT Document Registration
[2017-11-20 08:22] LABS: BASOPHILS # (AUTO) 0.1 10^3/uL (0.0-0.1); BASOPHILS % (AUTO) 0 % (0-10); EOSINOPHILS # (AUTO) 0.2 10^3/uL (0.0-0.3); EOSINOPHILS % (AUTO) 1 % (0-10); HEMATOCRIT 49 % (40-54); HEMOGLOBIN 15.4 G/DL (13.3-17.7); LYMPHOCYTES # (AUTO) 6.5 X 10^3 (1.0-4.0); LYMPHOCYTES % (AUTO) 27 % (12-44); MEAN CORPUSCULAR HEMOGLOBIN 30 PG (25-34); MEAN CORPUSCULAR HGB CONC 31 G/DL (32-36); MEAN CORPUSCULAR VOLUME 96 FL (80-99); MEAN PLATELET VOLUME 11.4 FL (7.4-10.4); MONOCYTES % (AUTO) 8 % (0-12); NEUTROPHILS # (AUTO) 15.6 X 10^3 (1.8-7.8); NEUTROPHILS % (AUTO) 64 % (42-75); PLATELET COUNT 378 10^3/uL (130-400); RED BLOOD COUNT 5.13 10^6/uL (4.35-5.85); RED CELL DISTRIBUTION WIDTH 13.9 % (10.0-14.5); WHITE BLOOD COUNT 24.4 10^3/uL (4.3-11.0)
[2017-11-20 08:45] LABS: BILIRUBIN,URINE NEGATIVE (NEGATIVE); CLARITY,URINE CLEAR; COLOR,URINE YELLOW; GLUCOSE, URINE (UA) 4+ (NEGATIVE); KETONES,URINE 4+ (NEGATIVE); LEUKOCYTE ESTERASE ,URINE NEGATIVE (NEGATIVE); NITRITE,URINE NEGATIVE (NEGATIVE); PH,URINE 5 (5-9); PROTEIN,URINE 2+ (NEGATIVE); UROBILINOGEN,URINE NORMAL (NORMAL)
[2017-11-20 08:45] LABS: ALANINE AMINOTRANSFERASE 761 U/L (0-55); ALBUMIN 4.2 GM/DL (3.2-4.5); ALKALINE PHOSPHATASE 187 U/L (40-136); BILIRUBIN,TOTAL 0.2 MG/DL (0.1-1.0); BUN/CREATININE RATIO 13; CALCIUM 9.2 MG/DL (8.5-10.1); CHLORIDE 100 MMOL/L (98-107); CREATININE SERUM 1.95 MG/DL (0.60-1.30); GFR ESTIMATED 37; MAGNESIUM 2.6 MG/DL (1.8-2.4); PHOSPHORUS 12.2 MG/DL (2.3-4.7); SODIUM 140 MMOL/L (135-145)
[2017-11-20 08:52] LABS: BAND NEUTROPHILS 9 %; BASOPHILS % (MANUAL) 1 %; EOSINOPHILS % (MANUAL) 2 %; LYMPHOCYTES % (MANUAL) 26 %; MONOCYTES % (MANUAL) 8 %; MYELOCYTES % 3 %; NEUTROPHILS % (MANUAL) 51 %; RBC MORPH NORMAL
[2017-11-20 08:56] LABS: BACTERIA,URINE NEGATIVE /HPF; RBC,URINE 0-2 /HPF
[2017-11-20 08:56] LABS: ABG BASE EXCESS -29.2 MMOL/L (-2.5-2.5); ABG OXYGEN SATURATION 97 % (94-100); ABG PO2 164 MMHG (79-93); ABG TCO2 2.3 MMOL/L (21.0-31.0)
[2017-11-20 08:59] LABS: ABG PCO2 13 MMHG (35-45)
[2017-11-20 09:00] LABS: VENTILATOR NO
[2017-11-20 09:00] LABS: CARBON DIOXIDE < 5 MMOL/L (21-32)
[2017-11-20 09:01] LABS: GLUCOSE 958 MG/DL (70-105)
[2017-11-20] MEDS ORDERED: SODIUM BICARB 8.4% 50 MEQ/50 ML (ABBOTT) SYR ONE (09:02)
[2017-11-20] MEDS ORDERED: inSUlin (REGULAR) HUMAN 1 UNIT/0.01 ML (CHARGE PER UNIT) ONE (09:03)
[2017-11-20] MEDS ORDERED: ETOMIDATE IV SOLN 20 MG/10 ML VIAL ONE (09:10)
[2017-11-20] MEDS ORDERED: fentaNYL INJECTION 100 MCG/2 ML AMP ONE (09:10)
[2017-11-20] MEDS ORDERED: SUCCINYLCHOLINE INJ 100 MG/5 ML SYR ONE (09:10)
[2017-11-20] MEDS ORDERED: MIDAZOLAM 5 MG/5 ML (VERSED) VIAL ONE (09:10)
[2017-11-20 09:11] LABS: POTASSIUM 5.7 MMOL/L (3.6-5.0)
[2017-11-20] MEDS ORDERED: PROPOFOL DRIP (ICU) 100 ML IV ONE (09:30)
[2017-11-20] MEDS ORDERED: inSUlin REGULAR TPN/DRIP ONLY 250 UNITS in NORMAL SALINE 250 ML IV SCH ×2 (09:30→11:30)
[2017-11-20] MEDS ORDERED: PROPOFOL DRIP (ICU) 100 ML IV SCH (09:45)
--- NOTE | 2017-11-20 10:17 | Diagnostic Imaging Report ---
INDICATION: Found unresponsive. TIME OF EXAM: 10:03 AM Comparison is made with prior study from 10/18/2017. FINDINGS: An endotracheal tube has been placed and has the tip in good position above the linda. The NG tube passes below the diaphragm. Heart size is stable. There may be mild bibasilar subsegmental atelectasis. Otherwise lungs are clear. No effusion or pneumothorax is seen. There is no evidence of edema. IMPRESSION: 1. Mild bibasilar subsegmental atelectasis. 2. Satisfactory location of endotracheal tube and nasogastric tube. Dictated by: Dictated on workstation # [id number]
[2017-11-20] MEDS ORDERED: HALO10TA PO (10:25)
[2017-11-20] MEDS ORDERED: FLUO20CA42 PO (10:25)
[2017-11-20 10:31] LABS: AMPHETAMINE SCREEN, URINE NEGATIVE (NEGATIVE); BARBITURATE SCREEN URINE NEGATIVE (NEGATIVE); BENZODIAZEPINES SCREEN URINE NEGATIVE (NEGATIVE); CANNABINOID SCREEN, URINE NEGATIVE (NEGATIVE); COCAINE SCREEN URINE NEGATIVE (NEGATIVE); METHADONE STAT NEGATIVE (NEGATIVE); METHAMPHETAMINE SCREEN URINE S NEGATIVE (NEGATIVE); OPIATE SCREEN URINE NEGATIVE (NEGATIVE); OXYCODONE STAT NEGATIVE (NEGATIVE); PROPOXYPHENE STAT NEGATIVE (NEGATIVE); TRICYCLIC ANTIDEPRESSANTS SCRE NEGATIVE (NEGATIVE)
[2017-11-20 10:34] LABS: SALICYLATE < 5.0 MG/DL (5.0-20.0)
[2017-11-20 10:43] LABS: ACETAMINOPHEN 295 UG/ML (10-30)
--- NOTE | 2017-11-20 10:50 | Pulmonary Consultation ---
History of Present Illness History of Present Illness Date of Consultation 11/20/17 10:44 Time Seen by Provider: 10:44 Date of Admission History of Present Illness 47yo with hx of DM presented to ED secondary to MS changes and worsening SOB. He was found to be obtunded and in acute DKA in the ED. Secondary to acute respiratory failure and MS changes patient was intubated in the ED. Unable to obtain ROS. Pt is currently sedated on ventilator. I am consulted for ICU management. Allergies and Home Medications Allergies Coded Allergies: Cephalexin Monohydrate (Verified Adverse Reaction, Mild, 07/18/11) erythromycin base (Verified Adverse Reaction, Mild, 07/18/11) Home Medications Fluoxetine HCl 20 Mg Capsule, 20 MG PO DAILY, (Reported) LAST FILLED #30 09-19-17 Haloperidol 10 Mg Tablet, 10 MG PO HS, (Reported) LAST FILLED #30 09-19-17 Insulin Aspart 100 Unit/1 Ml Susp, 25 UNIT SQ TIDAC, (Reported) Past Upudebt-Qsvsmx-Vqtuzc Hx Past Med/Social Hx: Reviewed Nursing Past Med/Soc Hx Patient Social History Alcohol Use: Denies Use Recreational Drug Use: No Smoking Status: Current Everyday Smoker Type Used: Cigarettes 2nd Hand Smoke Exposure: No Recent Foreign Travel: No Contact w/Someone Who Travel: No Recent Infectious Disease Expo: No Recent Hopitalizations: No Immunizations Up To Date Tetanus Booster (TDap): Less than 5yrs Date of Influenza Vaccine: Apr 10, 2016 Seasonal Allergies Seasonal Allergies: No Past Medical History Surgeries: Yes (LAP NEISSEN) Abdominal, Tonsillectomy Respiratory: No Cardiac: Yes High Cholesterol, Hypertension Neurological: No Reproductive Disorders: No Genitourinary: No Gastrointestinal: Yes Gastroesophageal Reflux, Hiatal Hernia Musculoskeletal: No Endocrine: Yes (Type 1) Diabetes, Insulin dep HEENT: No Cancer: No Psychosocial: Yes Anxiety, Suicide Attempts, Bipolar, Schizophrenia Integumentary: No Blood Disorders: No Adverse Reaction/Blood Tranf: No Family Medical History Reviewed Nursing Family Hx Cataract 03 FATHER, Onset:60 years & older Family history: Arthritis 03 FATHER, Onset:60 years & older Family history: Diabetes mellitus 03 FATHER, Onset:60 years & older Hypercholesterolemia 03 FATHER, Onset:60 years & older No Family History of: Abdominal aortic aneurysm Maxime's disease Alcoholism Aphasia Cancer Cancer of colon Chest pain Congenital heart disease Congestive heart failure Cystic fibrosis Dementia Dysphagia Family history: Allergy Family history: Alzheimer's disease Family history: Asthma Family history: Breast disease Family history: Cardiovascular disease Family history: Coronary thrombosis Family history: Gastrointestinal disease Family history: Glaucoma Family history: Hypertension Family history: Osteoporosis Family history: Thyroid disorder Headache Hearing loss Heart disease Hereditary disease History of - anemia History of - respiratory disease History of drug abuse Human immunodeficiency virus (HIV) seropositivity Infertile Kidney disease Malignant neoplasm of lung Myocardial infarction Parkinson's disease Prostate cancer Psychotic disorder Seizure disorder Stroke Tuberculosis Visual impairment Diabetes All history per records reviewed as patient unable provide details due to altered mental status and current medical condition. Review of Systems Time Seen by Provider: 08:54 Exam Exam Vital Signs Date Time Temp Pulse Resp B/P (MAP) Pulse Ox O2 Delivery O2 Flow Rate FiO2 11/20/17 09:47 138 25 96 60 11/20/17 09:31 154/89 11/20/17 08:02 96.7 145 32 125/101 (109) 94 Room Air General Appearance: WD/WN, Mild Distress HEENT: PERRL/EOMI, Pharynx Normal, Other (dry mucous membranes) Neck: Non Tender, Supple Respiratory: Lungs Clear, Normal Breath Sounds Cardiovascular: No Murmur, Tachycardia Capillary Refill: Less Than 3 Seconds Extremity: Normal Range of Motion, No Pedal Edema Neurologic/Psychiatric: Other (awake but does not answer questions. Unable to determine orientation due to altered mental status and current medical condition.) Skin: Normal Color, Warm/Dry Results Lab Laboratory Tests 11/20/17 08:07 Assessment/Plan Assessment/Plan Acute respiratory failure -Continue ventilatory support for now Acute severe DKA with metabolic acidosis -Continue DKA protocol -S/p 2 amps of NaHC03 -IVF Acute metabolic encephalopathy secondary to DKA -Continue to monitor Acute renal failure -monitor -IVF Acetaminophen overdose with elevated LFTs -Continue Mucomyst protocol Acute dehydration Atelectasis 255 LELA SAMANIEGO DO November 20, 2017 10:50
[2017-11-20] MEDS ORDERED: ACETYLCYSTEINE IV NR ×3 (11:02→18:00)
[2017-11-20] MEDS ORDERED: D5W IV NR ×3 (11:02→18:00)
[2017-11-20] MEDS ORDERED: NS IV 1000 ML 1,000 ML IV ONE ×2 (11:20→12:30)
[2017-11-20] MEDS ORDERED: D5 1/2 NS 1000 ML IV SOLUTION 1,000 ML IV SCH (11:30)
--- NOTE | 2017-11-20 11:33 | History & Physicial (CHS) ---
HPI History of Present Illness: 47 yo male admitted from ED with severe DKA. Obtunded requiring intubation and no family present, unable to obtain history. Exam Limitations: clinical condition Date seen by provider: November 20, 2017 Time Seen by Provider: 11:20 Attending Physician Hattie Vora MD PCP [facility] [place] Consult Date of Admission November 20, 2017 at 10:00 Home Medications Home Medications Reviewed patient Home Medication Reconciliation performed by pharmacy medication reconciliations microcomputer technician and/or nursing. Patients Allergies have been reviewed. Allergies Coded Allergies: Cephalexin Monohydrate (Verified Adverse Reaction, Mild, 07/18/11) erythromycin base (Verified Adverse Reaction, Mild, 07/18/11) [id number] Hx Patient Social History Alcohol Use: Denies Use Recreational Drug Use: No Smoking Status: Current Everyday Smoker Type Used: Cigarettes 2nd Hand Smoke Exposure: No Recent Foreign Travel: No Contact w/other who traveled: No Recent Hopitalizations: No Recent Infectious Disease Expo: No Immunizations Up To Date Tetanus Booster (TDap): Less than 5yrs Date of Influenza Vaccine: Apr 10, 2016 Past Medical History PMHx: DMI Mood disorder Hyperlipidemia PSurgHx: Fundoplication Family Medical History Significant Family History: Diabetes Family History: Cataract 03 FATHER, Onset:60 years & older Family history: Arthritis 03 FATHER, Onset:60 years & older Family history: Diabetes mellitus 03 FATHER, Onset:60 years & older Hypercholesterolemia 03 FATHER, Onset:60 years & older No Family History of: Abdominal aortic aneurysm Maxime's disease Alcoholism Aphasia Cancer Cancer of colon Chest pain Congenital heart disease Congestive heart failure Cystic fibrosis Dementia Dysphagia Family history: Allergy Family history: Alzheimer's disease Family history: Asthma Family history: Breast disease Family history: Cardiovascular disease Family history: Coronary thrombosis Family history: Gastrointestinal disease Family history: Glaucoma Family history: Hypertension Family history: Osteoporosis Family history: Thyroid disorder Headache Hearing loss Heart disease Hereditary disease History of - anemia History of - respiratory disease History of drug abuse Human immunodeficiency virus (HIV) seropositivity Infertile Kidney disease Malignant neoplasm of lung Myocardial infarction Parkinson's disease Prostate cancer Psychotic disorder Seizure disorder Stroke Tuberculosis Visual impairment Review of Systems (CHC) Constitutional: other (unable to obtain due to patient condition) Reviewed Test Results Reviewed Test Results Lab Laboratory Tests Test 11/20/17 08:07 11/20/17 08:24 11/20/17 08:32 11/20/17 08:39 Range/Units White Blood Count 24.4 H 4.3-11.0 10^3/uL Red Blood Count 5.13 4.35-5.85 10^6/uL Hemoglobin 15.4 13.3-17.7 G/DL Hematocrit 49 40-54 % Mean Corpuscular Volume 96 80-99 FL Mean Corpuscular Hemoglobin 30 25-34 PG Mean Corpuscular Hemoglobin Concent 31 L 32-36 G/DL Red Cell Distribution Width 13.9 10.0-14.5 % Platelet Count 378 130-400 10^3/uL Mean Platelet Volume 11.4 H 7.4-10.4 FL Neutrophils (%) (Auto) 64 42-75 % Lymphocytes (%) (Auto) 27 12-44 % Monocytes (%) (Auto) 8 0-12 % Eosinophils (%) (Auto) 1 0-10 % Basophils (%) (Auto) 0 0-10 % Neutrophils # (Auto) 15.6 H 1.8-7.8 X 10^3 Lymphocytes # (Auto) 6.5 H 1.0-4.0 X 10^3 Monocytes # (Auto) 2.0 H 0.0-1.0 X 10^3 Eosinophils # (Auto) 0.2 0.0-0.3 10^3/uL Basophils # (Auto) 0.1 0.0-0.1 10^3/uL Neutrophils % (Manual) 51 % Lymphocytes % (Manual) 26 % Monocytes % (Manual) 8 % Eosinophils % (Manual) 2 % Basophils % (Manual) 1 % Myelocytes % 3 % Band Neutrophils 9 % Blood Morphology Comment NORMAL Sodium Level 140 135-145 MMOL/L Potassium Level 5.7 H 3.6-5.0 MMOL/L Chloride Level 100 98-107 MMOL/L Carbon Dioxide Level < 5 *L 21-32 MMOL/L Anion Gap 35 H 5-14 MMOL/L Blood Urea Nitrogen 25 H 7-18 MG/DL Creatinine 1.95 H 0.60-1.30 MG/DL Estimat Glomerular Filtration Rate 37 BUN/Creatinine Ratio 13 Glucose Level 958 *H 70-105 MG/DL Calcium Level 9.2 8.5-10.1 MG/DL Phosphorus Level 12.2 H 2.3-4.7 MG/DL Magnesium Level 2.6 H 1.8-2.4 MG/DL Total Bilirubin 0.2 0.1-1.0 MG/DL Aspartate Amino Transf (AST/SGOT) 1363 H 5-34 U/L Alanine Aminotransferase (ALT/SGPT) 761 H 0-55 U/L Alkaline Phosphatase 187 H 40-136 U/L Total Protein 7.0 6.4-8.2 GM/DL Albumin 4.2 3.2-4.5 GM/DL Salicylates Level < 5.0 L 5.0-20.0 MG/DL Acetaminophen Level 295 *H 10-30 UG/ML Serum Alcohol < 10 <10 MG/DL Smear Scan Blood Gas Puncture Site NA Blood Gas Patient Temperature NA Arterial Blood pH 6.80 *L 7.37-7.43 Arterial Blood Partial Pressure CO2 13 *L 35-45 MMHG Arterial Blood Partial Pressure O2 164 H 79-93 MMHG Arterial Blood HCO3 2 *L 23-27 MMOL/L Arterial Blood Total CO2 2.3 L 21.0-31.0 MMOL/L Arterial Blood Oxygen Saturation 97 94-100 % Arterial Blood Base Excess -29.2 L -2.5-2.5 MMOL/L Catracho Test NA Blood Gas Ventilator Setting NO Blood Gas Inspired Oxygen NA Urine Color YELLOW Urine Clarity CLEAR Urine pH 5 5-9 Urine Specific [place] 1.020 1.016-1.022 Urine Protein 2+ H NEGATIVE Urine Glucose (UA) 4+ H NEGATIVE Urine Ketones 4+ H NEGATIVE Urine Nitrite NEGATIVE NEGATIVE Urine Bilirubin NEGATIVE NEGATIVE Urine Urobilinogen NORMAL NORMAL MG/DL Urine Leukocyte Esterase NEGATIVE NEGATIVE Urine RBC (Auto) 2+ H NEGATIVE Urine RBC 0-2 /HPF Urine WBC NONE /HPF Urine Crystals NONE /LPF Urine Bacteria NEGATIVE /HPF Urine Casts NONE /LPF Urine Mucus MODERATE H /LPF Urine Culture Indicated NO Urine Opiates Screen NEGATIVE NEGATIVE Urine Oxycodone Screen NEGATIVE NEGATIVE Urine Methadone Screen NEGATIVE NEGATIVE Urine Propoxyphene Screen NEGATIVE NEGATIVE Urine Barbiturates Screen NEGATIVE NEGATIVE Ur Tricyclic Antidepressants Screen NEGATIVE NEGATIVE Urine Phencyclidine Screen NEGATIVE NEGATIVE Urine Amphetamines Screen NEGATIVE NEGATIVE Urine Methamphetamines Screen NEGATIVE NEGATIVE Urine Benzodiazepines Screen NEGATIVE NEGATIVE Urine Cocaine Screen NEGATIVE NEGATIVE Urine Cannabinoids Screen NEGATIVE NEGATIVE Glucometer > 600 *H 70-110 MG/DL Test 11/20/17 10:29 Range/Units Glucometer > 600 *H 70-110 MG/DL Radiology CXR 11/20 with mild bibasilar atelectasis Physical Exam-(CHC) Physical Exam Vital Signs VS - Last 72 Hours, by Label 11/20/17 11/20/17 11/20/17 08:02 09:31 09:47 Temp 96.7 Pulse 145 138 Resp 32 25 B/P (MAP) 125/101 (109) 154/89 Pulse Ox 94 96 O2 Delivery Room Air FiO2 60 Capillary Refill : Less Than 3 Seconds General Appearance: moderate distress, other (intubated, sedated) Respiratory: lungs clear, normal breath sounds Cardiovascular: no murmur, tachycardia Gastrointestinal: normal bowel sounds, soft, no organomegaly; No distended Extremities: no pedal edema Neurologic/Psychiatric: other (intubated, sedated) Skin: normal color, warm/dry Assessment/Plan Assessment/Plan Admission Status: Inpatient Order (span 2 midnights) Reason for Inpatient Admission: Patient with severe DKA requiring bicarb and intubation along with acute hepatotoxicity from apap. (1) Diabetic ketoacidosis Status: Acute Assessment & Plan: Severe with initial pH 6.8. Received 2 amps bicarb in ED and started on insulin drip and IVF per DKA protocol. Requiring intubation due to obtundation, Dr. Rivera consulted for ventilator/critical care management. Qualifiers: Qualified Codes: E10.11 - Type 1 diabetes mellitus with ketoacidosis with coma (2) Acute renal insufficiency Status: Acute Assessment & Plan: Secondary to volume depletion related to DKA. IVF and monitor. (3) Leukocytosis Status: Acute Assessment & Plan: Suspect secondary to DKA/dehydration. CXR unremarkable. Will monitor and consider abx if fever or other signs of infection. (4) Elevated transaminase level Status: Acute Assessment & Plan: Secondary to acetaminophen overdose as noted below. Check coags. If worsening in spite of NAC may need to consider transfer to liver center. (5) Hypermagnesemia Status: Acute Assessment & Plan: Secondary to NORMA, monitor with IVF replacement. (6) Hyperkalemia Status: Acute Assessment & Plan: Anticipate resolution with insulin, DKA protocol initiated. (7) Hyperphosphatemia Status: Acute Assessment & Plan: Severe, likely secondary to DKA, anticipate improvement with insulin. Consider whether other medications may have been ingested- unable to obtain history currently. Ca normal, monitor. (8) Tachycardia Status: Acute Assessment & Plan: Suspect secondary to dehydration as opposed to infection or cardiac issue. Monitor with IVF replacement, consider abx as noted above. (9) Acetaminophen overdose Status: Acute Qualifiers: Qualified Codes: T39.1X4A - Poisoning by 4-aminophenol derivatives, undetermined, initial encounter (10) Volume depletion Status: Acute Assessment & Plan: IVF per DKA protocol. (11) DVT prophylaxis Status: Acute Assessment & Plan: Enoxparin HATTIE VORA MD November 20, 2017 11:33
[2017-11-20] MEDS ORDERED: LORazepam INJ 2 MG/ML (ATIVAN) VIAL ONE (11:59)
[2017-11-20] MEDS ORDERED: LORazepam INJ 2 MG/ML (ATIVAN) VIAL IVP ONE (12:15)
[2017-11-20] MEDS ORDERED: DEXMEDETOMIDINE INJECTION 1,000 MCG in NS (IVPB) 250 ML IV SCH (12:15)
[2017-11-20 12:18] LABS: INR 1.6 (0.8-1.4); PROTHROMBIN TIME PATIENT 18.9 SEC (12.2-14.7)
[2017-11-20] MEDS ORDERED: 1/2 NS W/KCL 20 MEQ/L 1,000 ML IV ONE (12:22)
[2017-11-20] MEDS: 1/2 NS IV SOLUTION 1,000 ML IV SCH ×3 (12:28→18:12)
[2017-11-20] MEDS ORDERED: SODIUM BICARB 8.4% 50 MEQ/50 ML (ABBOTT) SYR IV NR (12:30)
[2017-11-20] MEDS ORDERED: morphine INJ 4 MG/ML 1 ML (VIAL/SYRINGE) IVP PRN (12:30)
[2017-11-20] MEDS: PROPOFOL DRIP (ICU) 100 ML IV SCH ×2 (12:39→18:37)
[2017-11-20 12:46] LABS: FIBRIN DEGRADATION PRODUCTS 1.16 UG/ML (0.00-0.49)
--- NOTE | 2017-11-20 13:46 | Diagnostic Imaging Report ---
INDICATION: Line placement. TECHNIQUE: Single view chest at 1:27 PM. CORRELATION STUDY: 11/20/2017 FINDINGS: Endotracheal tube, gastric tube remain in place. There has been interval placement of a right-sided central line, presumably from the internal jugular vein. Tip projects just superior to the level of the right main bronchus. Heart size and mediastinum generally stable, remaining mildly prominent with vasculature slightly diminished from previous study. Minimal area of atelectasis or infiltrate in the perihilar and left basilar region. IMPRESSION: 1. Interval placement of a right IJ central line tip projects over the mid to lower SVC. 2. Areas of minimal perihilar and left basilar atelectasis versus infiltrate with vasculature slightly prominent. Dictated by: Dictated on workstation # [id number]
--- NOTE | 2017-11-20 13:55 | Pulmonary Procedures ---
Pulmonary Procedures Date of Procedure Date of Service: November 20, 2017 Lumen: triple (US guided ) Central Line Procedure: betadine prep, sterile drapes applied, sterile dressing applied Position: internal jugular (R) Anesthesia: Lidocaine Volume Anesthetic (ccs): 5 Complications: none Post Position: sutured, good blood return, position confirmed w/ CXR (pending) LELA SAMANIEGO DO November 20, 2017 13:55
[2017-11-20 15:32] LABS: ABG BASE EXCESS -18.7 MMOL/L (-2.5-2.5); ABG OXYGEN SATURATION 99 % (94-100); ABG PCO2 22 MMHG (35-45); ABG PO2 166 MMHG (79-93); ABG TCO2 8.7 MMOL/L (21.0-31.0)
[2017-11-20 15:34] LABS: ABG PH 7.19 (7.37-7.43); ALLENS TEST YES-POS; INSPIRED O2 40%; PATIENT TEMP 98.3; VENTILATOR YES
[2017-11-20 16:00] LABS: BUN/CREATININE RATIO 13; CALCIUM 7.5 MG/DL (8.5-10.1); CHLORIDE 114 MMOL/L (98-107); CREATININE SERUM 1.91 MG/DL (0.60-1.30); GFR ESTIMATED 38; POTASSIUM 4.7 MMOL/L (3.6-5.0); SODIUM 141 MMOL/L (135-145)
[2017-11-20 16:02] LABS: CARBON DIOXIDE 7 MMOL/L (21-32); GLUCOSE 689 MG/DL (70-105)
[2017-11-20 16:03] LABS: ACETAMINOPHEN 163 UG/ML (10-30)
[2017-11-20 16:35] LABS: ALANINE AMINOTRANSFERASE 925 U/L (0-55); ALBUMIN 3.2 GM/DL (3.2-4.5); ALKALINE PHOSPHATASE 118 U/L (40-136); BILIRUBIN,DIRECT < 0.1 MG/DL (0.0-0.3); BILIRUBIN,INDIRECT 0.1 MG/DL; BILIRUBIN,TOTAL 0.2 MG/DL (0.1-1.0); TOTAL PROTEIN 5.4 GM/DL (6.4-8.2)
[2017-11-20] MEDS ORDERED: D5 1/2 NS W/KCL 20 MEQ/L 1,000 ML IV ONE (20:02)
[2017-11-20] MEDS ORDERED: NS IV 1000 ML 1,000 ML ONE (22:06)
[2017-11-20] MEDS ORDERED: NS IV 1000 ML 1,000 ML IV SCH (22:15)
--- NOTE | 2017-11-20 22:49 | Discharge Summary ---
Diagnosis/Chief Complaint Date of Admission November 20, 2017 at 10:00 am Date of Discharge November 20, 2017 Admission Diagnosis Admission Diagnosis (1) Diabetic ketoacidosis Status: Acute Qualifiers: Qualified Codes: E10.11 - Type 1 diabetes mellitus with ketoacidosis with coma (2) Acute renal insufficiency Status: Acute (3) Leukocytosis Status: Acute (4) Elevated transaminase level Status: Acute (5) Hypermagnesemia Status: Acute (6) Hyperkalemia Status: Acute (7) Hyperphosphatemia Status: Acute (8) Tachycardia Status: Acute (9) Acetaminophen overdose Status: Acute Qualifiers: Qualified Codes: T39.1X4A - Poisoning by 4-aminophenol derivatives, undetermined, initial encounter (10) Volume depletion Status: Acute Discharge Diagnosis (1) Diabetic ketoacidosis Status: Acute Assessment & Plan: Severe with initial pH 6.8. Received 2 amps bicarb in ED and started on insulin drip and IVF per DKA protocol. Requiring intubation due to obtundation, Dr. Rivera consulted for ventilator/critical care management. Improved pH to 7.1 and decreasing anion gap on repeat, however decision made to transfer patient to [facility] for liver. Qualifiers: Qualified Codes: E10.11 - Type 1 diabetes mellitus with ketoacidosis with coma (2) Acute renal insufficiency Status: Acute Assessment & Plan: Secondary to volume depletion related to DKA. IVF and monitor. (3) Leukocytosis Status: Acute Assessment & Plan: Suspect secondary to DKA/dehydration. CXR unremarkable. Will monitor and consider abx if fever or other signs of infection. (4) Elevated transaminase level Status: Acute Assessment & Plan: Secondary to acetaminophen overdose as noted below. Check coags. If worsening in spite of NAC may need to consider transfer to liver center. Repeat LFTs worsening, INR elevated, D dimer high- discussed with transfer center and accepted in transfer. (5) Hypermagnesemia Status: Acute Assessment & Plan: Secondary to NORMA, monitor with IVF replacement. (6) Hyperkalemia Status: Acute Assessment & Plan: Anticipate resolution with insulin, DKA protocol initiated. Resolved before transfer. (7) Hyperphosphatemia Status: Acute Assessment & Plan: Severe, likely secondary to DKA, anticipate improvement with insulin. Consider whether other medications may have been ingested- unable to obtain history currently. Ca normal, monitor. (8) Tachycardia Status: Acute Assessment & Plan: Suspect secondary to dehydration as opposed to infection or cardiac issue. Monitor with IVF replacement, consider abx as noted above. (9) Acetaminophen overdose Status: Acute Qualifiers: Qualified Codes: T39.1X4A - Poisoning by 4-aminophenol derivatives, undetermined, initial encounter Assessment & Plan: Unknown timing of ingestion or amount, mother was unaware he had taken, but she did check bottles later after admission and notes that large bottle (possibly a 500 tab bottle) was down to 30 tabs or so and had been nearly new, suspected ingestion possibly around 12 hours before arrival to ER. NAC per protocol, transfer to liver center as noted above. (10) Volume depletion Status: Acute Assessment & Plan: IVF per DKA protocol. Chief Complaint/HPI Chief Complaint/HPI 47 yo male admitted from ED with severe DKA. Obtunded requiring intubation and no family present, unable to obtain history. Discharge Summary-Simple/Stand Procedures R IJ central line placement Intubation Consultations Dr. Rivera/Pulmonology/Critical Care Discharge Physical Examination Allergies: Coded Allergies: Cephalexin Monohydrate (Verified Adverse Reaction, Mild, 07/18/11) erythromycin base (Verified Adverse Reaction, Mild, 07/18/11) Vitals & I&Os Vital Sign - Last 12Hours Date Time Temp Pulse Resp B/P (MAP) Pulse Ox O2 Delivery O2 Flow Rate FiO2 11/20/17 19:08 Mechanical Ventilator 60 11/20/17 18:37 106 115/78 40.00 11/20/17 18:00 15 99 11/20/17 16:01 98.0 General Appearance: Other (sedated, ventilated) Hospital Course See final discharge diagnosis. Labs Laboratory Tests Test 11/20/17 08:07 11/20/17 08:24 11/20/17 08:32 11/20/17 08:39 Range/Units White Blood Count 24.4 H 4.3-11.0 10^3/uL Red Blood Count 5.13 4.35-5.85 10^6/uL Hemoglobin 15.4 13.3-17.7 G/DL Hematocrit 49 40-54 % Mean Corpuscular Volume 96 80-99 FL Mean Corpuscular Hemoglobin 30 25-34 PG Mean Corpuscular Hemoglobin Concent 31 L 32-36 G/DL Red Cell Distribution Width 13.9 10.0-14.5 % Platelet Count 378 130-400 10^3/uL Mean Platelet Volume 11.4 H 7.4-10.4 FL Neutrophils (%) (Auto) 64 42-75 % Lymphocytes (%) (Auto) 27 12-44 % Monocytes (%) (Auto) 8 0-12 % Eosinophils (%) (Auto) 1 0-10 % Basophils (%) (Auto) 0 0-10 % Neutrophils # (Auto) 15.6 H 1.8-7.8 X 10^3 Lymphocytes # (Auto) 6.5 H 1.0-4.0 X 10^3 Monocytes # (Auto) 2.0 H 0.0-1.0 X 10^3 Eosinophils # (Auto) 0.2 0.0-0.3 10^3/uL Basophils # (Auto) 0.1 0.0-0.1 10^3/uL Neutrophils % (Manual) 51 % Lymphocytes % (Manual) 26 % Monocytes % (Manual) 8 % Eosinophils % (Manual) 2 % Basophils % (Manual) 1 % Myelocytes % 3 % Band Neutrophils 9 % Blood Morphology Comment NORMAL Prothrombin Time 18.9 H 12.2-14.7 SEC INR Comment 1.6 H 0.8-1.4 Activated Partial Thromboplast Time 29 24-35 SEC Fibrinogen 426 221-496 MG/DL D-Dimer 1.16 H 0.00-0.49 UG/ML Sodium Level 140 135-145 MMOL/L Potassium Level 5.7 H 3.6-5.0 MMOL/L Chloride Level 100 98-107 MMOL/L Carbon Dioxide Level < 5 *L 21-32 MMOL/L Anion Gap 35 H 5-14 MMOL/L Blood Urea Nitrogen 25 H 7-18 MG/DL Creatinine 1.95 H 0.60-1.30 MG/DL Estimat Glomerular Filtration Rate 37 BUN/Creatinine Ratio 13 Glucose Level 958 *H 70-105 MG/DL Calcium Level 9.2 8.5-10.1 MG/DL Phosphorus Level 12.2 H 2.3-4.7 MG/DL Magnesium Level 2.6 H 1.8-2.4 MG/DL Total Bilirubin 0.2 0.1-1.0 MG/DL Aspartate Amino Transf (AST/SGOT) 1363 H 5-34 U/L Alanine Aminotransferase (ALT/SGPT) 761 H 0-55 U/L Alkaline Phosphatase 187 H 40-136 U/L Total Protein 7.0 6.4-8.2 GM/DL Albumin 4.2 3.2-4.5 GM/DL Salicylates Level < 5.0 L 5.0-20.0 MG/DL Acetaminophen Level 295 *H 10-30 UG/ML Serum Alcohol < 10 <10 MG/DL Smear Scan Blood Gas Puncture Site NA Blood Gas Patient Temperature NA Arterial Blood pH 6.80 *L 7.37-7.43 Arterial Blood Partial Pressure CO2 13 *L 35-45 MMHG Arterial Blood Partial Pressure O2 164 H 79-93 MMHG Arterial Blood HCO3 2 *L 23-27 MMOL/L Arterial Blood Total CO2 2.3 L 21.0-31.0 MMOL/L Arterial Blood Oxygen Saturation 97 94-100 % Arterial Blood Base Excess -29.2 L -2.5-2.5 MMOL/L Catracho Test NA Blood Gas Ventilator Setting NO Blood Gas Inspired Oxygen NA Urine Color YELLOW Urine Clarity CLEAR Urine pH 5 5-9 Urine Specific [place] 1.020 1.016-1.022 Urine Protein 2+ H NEGATIVE Urine Glucose (UA) 4+ H NEGATIVE Urine Ketones 4+ H NEGATIVE Urine Nitrite NEGATIVE NEGATIVE Urine Bilirubin NEGATIVE NEGATIVE Urine Urobilinogen NORMAL NORMAL MG/DL Urine Leukocyte Esterase NEGATIVE NEGATIVE Urine RBC (Auto) 2+ H NEGATIVE Urine RBC 0-2 /HPF Urine WBC NONE /HPF Urine Crystals NONE /LPF Urine Bacteria NEGATIVE /HPF Urine Casts NONE /LPF Urine Mucus MODERATE H /LPF Urine Culture Indicated NO Urine Opiates Screen NEGATIVE NEGATIVE Urine Oxycodone Screen NEGATIVE NEGATIVE Urine Methadone Screen NEGATIVE NEGATIVE Urine Propoxyphene Screen NEGATIVE NEGATIVE Urine Barbiturates Screen NEGATIVE NEGATIVE Ur Tricyclic Antidepressants Screen NEGATIVE NEGATIVE Urine Phencyclidine Screen NEGATIVE NEGATIVE Urine Amphetamines Screen NEGATIVE NEGATIVE Urine Methamphetamines Screen NEGATIVE NEGATIVE Urine Benzodiazepines Screen NEGATIVE NEGATIVE Urine Cocaine Screen NEGATIVE NEGATIVE Urine Cannabinoids Screen NEGATIVE NEGATIVE Glucometer > 600 *H 70-110 MG/DL Test 11/20/17 10:29 11/20/17 11:48 11/20/17 12:33 11/20/17 13:48 Range/Units Glucometer > 600 *H > 600 *H > 600 *H > 600 *H 70-110 MG/DL Test 11/20/17 14:18 11/20/17 15:25 11/20/17 15:30 11/20/17 16:59 Range/Units Glucose Level 733 *H 689 *H 70-105 MG/DL Blood Gas Puncture Site RT RAD Blood Gas Patient Temperature 98.3 Arterial Blood pH 7.19 *L 7.37-7.43 Arterial Blood Partial Pressure CO2 22 L 35-45 MMHG Arterial Blood Partial Pressure O2 166 H 79-93 MMHG Arterial Blood HCO3 8 *L 23-27 MMOL/L Arterial Blood Total CO2 8.7 L 21.0-31.0 MMOL/L Arterial Blood Oxygen Saturation 99 94-100 % Arterial Blood Base Excess -18.7 L -2.5-2.5 MMOL/L Catracho Test YES-POS Blood Gas Ventilator Setting YES Blood Gas Inspired Oxygen 40% Sodium Level 141 135-145 MMOL/L Potassium Level 4.7 3.6-5.0 MMOL/L Chloride Level 114 #H 98-107 MMOL/L Carbon Dioxide Level 7 *L 21-32 MMOL/L Anion Gap 20 H 5-14 MMOL/L Blood Urea Nitrogen 24 H 7-18 MG/DL Creatinine 1.91 H 0.60-1.30 MG/DL Estimat Glomerular Filtration Rate 38 BUN/Creatinine Ratio 13 Calcium Level 7.5 L 8.5-10.1 MG/DL Total Bilirubin 0.2 0.1-1.0 MG/DL Direct Bilirubin < 0.1 0.0-0.3 MG/DL Indirect Bilirubin 0.1 MG/DL Aspartate Amino Transf (AST/SGOT) 1663 #H 5-34 U/L Alanine Aminotransferase (ALT/SGPT) 925 #H 0-55 U/L Alkaline Phosphatase 118 40-136 U/L Total Protein 5.4 L 6.4-8.2 GM/DL Albumin 3.2 3.2-4.5 GM/DL Acetaminophen Level 163 #*H 10-30 UG/ML Glucometer 516 *H 70-110 MG/DL Test 11/20/17 17:50 11/20/17 18:44 11/20/17 19:56 11/20/17 20:54 Range/Units Glucometer 474 *H 400 *H 365 H 369 H 70-110 MG/DL Test 11/20/17 22:14 Range/Units Glucometer 315 H 70-110 MG/DL Radiology Reviewed CXR 11/20 with mild bibasilar atelectasis Discharge Instructions to patient/family Please see electronic discharge instructions given to patient. Discharge Medications Reviewed and agree with Discharge Medication list on patient's Discharge Instruction sheet Clinical Quality Measures DVT/VTE Risk/Contraindication: Risk Factor Score Per Nursin RFS Level Per Nursing on Admit: 4+=Very High Copy Copies To 1: YANDY Nevarez BETHANY N MD November 20, 2017 10:49 pm
[2017-12-22] MEDS ORDERED: FLUO20CA25 PO (10:15)
[2017-12-22] MEDS ORDERED: SIMV20TA3 PO (10:15)
[2017-12-22] MEDS ORDERED: INSU100V6 SC (10:15)
== END 2017-11-20 23:20 | disposition short-term general hospital (02) | DRG 208 ==
LOC: EDUNIT# 08:02 → ER 08:04 → ICU 10:00
PROVIDERS: ADMIT Family Medicine; ATTEND Family Medicine
PROC: 5A1935Z Respiratory Ventilation, Less than 24 Consecutive Hours (ICD-10-PCS; principal; 2017-11-20)
DX: J96.00 Acute respiratory failure, unspecified whether with hypoxia or hypercapnia (principal); E10.11 Type 1 diabetes mellitus with ketoacidosis with coma; G93.41 Metabolic encephalopathy; N17.9 Acute kidney failure, unspecified; E86.0 Dehydration; J98.11 Atelectasis; T39.1X1A Poisoning by 4-Aminophenol derivatives, accidental (unintentional), initial encounter; F31.9 Bipolar disorder, unspecified; F20.9 Schizophrenia, unspecified; I10 Essential (primary) hypertension; E78.00 Pure hypercholesterolemia, unspecified; K21.9 Gastro-esophageal reflux disease without esophagitis; Z79.4 Long term (current) use of insulin; F17.210 Nicotine dependence, cigarettes, uncomplicated; D72.829 Elevated white blood cell count, unspecified; E83.41 Hypermagnesemia; E87.5 Hyperkalemia; E83.39 Other disorders of phosphorus metabolism; R00.0 Tachycardia, unspecified
CPT/HCPCS: 36415; 51702; 71045; 80048; 80053; 80076; 80306; 80320; 80329; 81000; 82805; 82947; 82962; 83735; 84100; 85007; 85027; 85379; 85384; 85610; 85730; 87070; 87081; 87205; 94799; 96365; 96375

== ENCOUNTER 2017-12-13 03:05 | Emergency (ER) | payer MEDICAID ==
[~2017-12-13] VITALS: Ht 170.2 cm; Wt 72.6 kg
[~2017-12-13 03:05] MED LIST changes: +FLUO20CA42 PO; +HALO10TA PO
--- OUTSIDE RECORDS SUMMARY | 2017-12-13 03:12 | XMS REPORT | Encounter Summary ---
Author Author [facility] Organization [facility] Address Unknown Phone Unavailable Care Team Providers Care Manager Of Finance Name Role Phone No Pcp, Na PCP Unavailable Encounter Details Date Type Department Care Team Description 12/09/2017 Pharmacy Visit [facility] [address] [place] [id number] Social History Tobacco Use Types Packs/Day Years Used Date Current Every Day Smoker Cigarettes 0.5 15 Smokeless Tobacco: Never Used Alcohol Use Drinks/Week oz/Week Comments No Sex Assigned at Date Recorded Not on file as of this encounter Functional Status Functional Status Response Date of Assessment Does the patient have a hearing impairment: No 11/27/2017 as of this encounter Plan of Treatment Not on fileas of this encounter Visit Diagnoses Not on filein this encounter
--- OUTSIDE RECORDS SUMMARY | 2017-12-13 03:12 | XMS REPORT | Encounter Summary ---
Author Author [facility] Organization [facility] Address Unknown Phone Unavailable Care Team Providers Care Registered Nurse Surgical Services Name Role Phone No Pcp, Na PCP Unavailable Encounter Details Date Type Department Care Team Description 12/09/2017 Pharmacy Visit [facility] [address] [place] [address] Social History Tobacco Use Types Packs/Day Years [...]
--- OUTSIDE RECORDS SUMMARY | 2017-12-13 03:12 | XMS REPORT | Clinical Summary ---
Author Author [facility] Organization [facility] Address Unknown Phone Unavailable Care Team Providers Care Bundle Packer Name Role Phone No Pcp, Na PCP Unavailable Source Comments Some departments are not documenting in the electronic medical record. If you do not see the information that you expected, contact Release of Information in the Health Information Management department at [phone] for further assistance in locating additional records.[facility] Allergies Active Allergy Reactions Severity Noted Date Comments Erythromycin UNKNOWN Low 11/21/2017 Cephalexin RASH Medium 11/21/2017 Per pt (on 11/22/17), he has tolerated penicillin in the past. Current Medications Prescription Sig. Disp. Refills Start End Date Status Date folic acid (FOLVITE) 1 mg Take 1 tablet by mouth 30 tablet 2 11/28/19 Active tablet daily. 18 vitamins, B complex tab Take 1 tablet by mouth 11/28/19 Active daily. 18 ascorbic acid (VITAMIN C) Take 1 tablet by mouth 11/28/19 Active 500 mg tablet daily. 18 aspirin 81 mg chewable Chew 1 tablet by mouth 11/28/19 Active tablet daily. Take with food. 18 loperamide (IMODIUM A-D) Take 2 capsules by mouth 30 capsule 0 Active 2 mg capsule initially, followed by 1 18 capsule by mouth after each loose stool up to a maximum of 8 tablets in 24 hours. lactobacillus rhamnosus Take 1 capsule by mouth 90 capsule 3 12/10/19 Active GG (CULTURELLE) 15 as directed twice daily 18 billion cell cpSP capsule with meals. insulin glargine (LANTUS Inject 26 Units under the 45 mL 3 12/10/19 Active SOLOSTAR, BASAGLAR) 100 skin at bedtime daily. 18 unit/mL (3 mL) injection PEN escitalopram oxalate Take 1 tablet by mouth 30 tablet 0 12/11/19 Active (LEXAPRO) 10 mg tablet daily. 18 traZODone (DESYREL) 100 Take 1 tablet by mouth at 30 tablet 0 Active mg tablet bedtime daily. 18 paliperidone palmitate(+) Inject 1 mL into the 1 mL 0 12/17/1912/16 Active (INVEGA SUSTENNA) 156 muscle once for 1 dose. 18 18 mg/1 mL syrg injection Due 12/16/17 carvedilol (COREG) 6.25 Take 1 tablet by mouth 60 tablet 1 12/10/19 Active mg tablet twice daily with food. 18 lisinopril (PRINIVIL; Take 1 tablet by mouth 30 tablet 1 12/10/19 Active ZESTRIL) 5 mg tablet daily. 18 insulin aspart U-100 Inject 10 Units under the 45 mL 3 12/10/19 Active (NOVOLOG FLEXPEN) 100 skin three times daily 18 unit/mL injection PEN with meals. pantoprazole DR Take 1 tablet by mouth 30 tablet 1 12/10/19 Active (PROTONIX) 40 mg tablet daily. 18 fluoxetine (PROZAC) 20 mg Take 20 mg by mouth 11/28/19 Discontin capsule daily. 18 ued haloperidol (HALDOL) 10 Take 10 mg by mouth at 11/28/19 Discontin mg tablet bedtime daily. 18 ued insulin aspart U-100 Inject 25 Units under the 11/28/19 Discontin (NOVOLOG FLEXPEN) 100 skin three times daily 18 ued unit/mL injection PEN with meals. insulin glargine (LANTUS Inject 30 Units under the 11/28/19 Discontin SOLOSTAR, BASAGLAR) 100 skin at bedtime daily. 18 ued unit/mL (3 mL) injection PEN lisinopril (PRINIVIL; Take 1 tablet by mouth 30 tablet 2 11/28/19 Discontin ZESTRIL) 5 mg tablet daily. 18 18 ued insulin aspart U-100 Inject 10 Units under the 11/28/19 12/10/19 Discontin (NOVOLOG FLEXPEN) 100 skin three times daily 18 18 ued unit/mL injection PEN with meals. carvedilol (COREG) 3.125 Take 2 tablets by mouth 60 tablet 3 05/31/20 06/12/20 Discontin mg tablet twice daily. Take with 18 18 ued food. insulin glargine (LANTUS Inject 28 Units under the 11/28/19 12/10/19 Discontin SOLOSTAR, BASAGLAR) 100 skin at bedtime daily. 18 18 ued unit/mL (3 mL) injection PEN pantoprazole DR Take 1 tablet by mouth 30 tablet 2 11/28/19 Discontin (PROTONIX) 40 mg tablet daily. 18 18 ued lactobacillus rhamnosus Take 1 capsule by mouth 90 capsule 3 11/28/19 12/10/19 Discontin GG (CULTURELLE) 15 as directed twice daily 18 18 ued billion cell cpSP capsule with meals for 2 days. ziprasidone (GEODON) 20 Take 1 capsule by mouth 11/28/19 12/10/19 Discontin mg capsule twice daily with meals. 18 18 ued amoxicillin/K clavulanate Take 1 tablet by mouth 0 11/28/19 12/10/19 Discontin (AUGMENTIN) 875/125 mg twice daily with meals 18 18 ued tablet for 3 doses. Take with food. 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) 11/21/2017 Acute encephalopathy 11/21/2017 Liver injury 11/21/2017 Resolved Problems Problem Noted Date Resolved Date Acute pancreatitis 11/24/2017 11/27/2017 Diabetic ketoacidosis associated with type 1 diabetes mellitus (HCC) 201711/27/2017 Shock (HCC) 11/21/2017 11/27/2017 On mechanically assisted ventilation (HCC) 11/21/2017 11/27/2017 NORMA (acute kidney injury) ([facility]) 11/21/2017 11/27/2017 Encounters Date Type Specialty Care Team Description 12/09/2017 Pharmacy Visit 12/09/2017 Pharmacy Visit 11/27/2017 [facility] Psychiatry Gabriel Stover MD Suicide attempt (HCC) - Encounter 12/09/2017 11/22/2017 Procedure Pass 11/21/2017 [facility] Henri Sainz MD Type 1 diabetes mellitus - Encounter Keith Souza MD with complication (HCC) 11/27/2017 Pedro Mendez MD Dobler, Stephanie, MD 11/21/2017 Procedure Pass from Last 3 Months Social History Tobacco Use Types Packs/Day Years Used Date Current Every Day Smoker Cigarettes 0.5 15 Smokeless Tobacco: Never Used Tobacco Cessation: Ready to Quit: No; Counseling Given: Yes Alcohol Use Drinks/Week oz/Week Comments No Sex Assigned at Date Recorded Not on file Last Filed Vital Signs Vital Sign Reading Time Taken Blood Pressure 91/71 12/09/2017 8:00 AM CDT Pulse 71 12/09/2017 8:00 AM CDT Temperature 36.7 C (98.1 F) 12/09/2017 8:00 AM CDT Respiratory Rate - - Oxygen Saturation 97% 12/09/2017 8:00 AM CDT Inhaled Oxygen - - Concentration Weight 78.8 kg (173 lb 12.8 oz) 11/27/2017 1:00 PM CDT Height 176.8 cm (5' 9.61") 11/27/2017 1:00 PM CDT Body Mass Index 25.22 11/27/2017 1:00 PM CDT Plan of Treatment Health Maintenance Due Date Last Done Comments PHYSICAL (COMPREHENSIVE) 1978 EXAM PERTUSSIS VACCINE 1982 TETANUS VACCINE 02/07/1988 INFLUENZA VACCINE 03/30/2018 05/16/2013, 05/19/2008 HIV SCREENING Completed 11/21/2017 Procedures Procedure Name Priority Date/Time Associated Diagnosis Comments TELEMETRY STRIPS-SCAN 12/01/2017 Results for this 2:05 PM CDT procedure are in the results section. ECG-SCAN 11/26/2017 Results for this 4:50 PM CDT procedure are in the results section. ECG-SCAN 11/26/2017 Results for this 4:50 PM CDT procedure are in the results section. from Last 3 Months Results * POC GLUCOSE (12/09/2017 12:12 PM) Only the most recent of 120 results within the time period is included. Component Value Ref Range Glucose, POC 132 (H) 70 - 100 MG/DL Specimen Performing Laboratory [facility] [address] [place] [address] * LIVER FUNCTION PANEL (12/07/2017 7:31 AM) Only the most recent of 2 results within the time period is included. Component Value Ref Range Total Bilirubin 0.3 0.3 - 1.2 MG/DL Bilirubin, Direct <0.1 <0.4 MG/DL Albumin 3.8 3.5 - 5.0 G/DL Alk Phosphatase 76 25 - 110 U/L AST (SGOT) 19 7 - 40 U/L ALT (SGPT) 34 7 - 56 U/L Total Protein 6.7 6.0 - 8.0 G/DL Specimen Performing Laboratory [facility] [address] [place] [address] * TELEMETRY STRIPS-SCAN (12/01/2017 2:05 PM) Narrative Ordered by an unspecified provider. * HEMOGLOBIN A1C (11/29/2017 11:21 AM) Only the most recent of 2 results within the time period is included. Component Value Ref Range Hemoglobin A1C 9.4 (H) 4.0 - 6.0 % Comment: The ADA recommends that most patients with type 1 and type 2 diabetes maintain an A1c level <7%. Specimen Performing Laboratory [facility] [address] [place] [address] * LIPID PROFILE (11/29/2017 11:21 AM) Only the most recent of 2 results within the time period is included. Component Value Ref Range Cholesterol 141 <200 MG/DL Triglycerides 268 (H) <150 MG/DL HDL 29 (L) >40 MG/DL LDL 83 <100 MG/DL VLDL 54 MG/DL Non HDL Cholesterol 112 MG/DL Comment: Calculated non-HDL Cholesterol (non-HDL-C) indirectly measures LDL-C, Lp(a), IDL-C, and VLDL-C.It is a surrogate marker for Apoprotein B.Goal should be less than 130 mg/dL. Specimen Performing Laboratory [facility] [address] [place] [address] * PROTIME INR (PT) (11/27/2017 4:35 AM) Only the most recent of 7 results within the time period is included. Component Value Ref Range INR 1.0 0.8 - 1.2 Specimen Performing Laboratory [facility] [address] [place] [address] * CBC AND DIFF (11/27/2017 4:35 AM) Only the most recent of 7 results within the time period is included. Component Value Ref Range White Blood Cells 10.0 4.5 - 11.0 K/UL RBC 3.69 (L) 4.4 - 5.5 M/UL Hemoglobin 11.4 (L) 13.5 - 16.5 GM/DL Hematocrit 33.0 (L) 40 - 50 % MCV 89.6 80 - 100 FL MCH 30.9 26 - 34 PG MCHC 34.5 32.0 - 36.0 G/DL RDW 14.1 11 - 15 % Platelet Count 288 150 - 400 K/UL MPV 7.5 7 - 11 FL Neutrophils 61 41 - 77 % Lymphocytes 26 24 - 44 % Monocytes 10 4 - 12 % Eosinophils 3 0 - 5 % Basophils 0 0 - 2 % Absolute Neutrophil Count 6.10 1.8 - 7.0 K/UL Absolute Lymph Count 2.60 1.0 - 4.8 K/UL Absolute Monocyte Count 1.00 (H) 0 - 0.80 K/UL Absolute Eosinophil Count 0.30 0 - 0.45 K/UL Absolute Basophil Count 0.00 0 - 0.20 K/UL Specimen Performing Laboratory [facility] [address] [place] [address] * PHOSPHORUS (11/27/2017 4:35 AM) Only the most recent of 15 results within the time period is included. Component Value Ref Range Phosphorus 3.3 2.0 - 4.0 MG/DL Specimen Performing Laboratory [facility] [address] [place] [address] * MAGNESIUM (11/27/2017 4:35 AM) Only the most recent of 11 results within the time period is included. Component Value Ref Range Magnesium 1.9 1.6 - 2.6 mg/dL Specimen Performing Laboratory [facility] [address] [place] [address] * COMPREHENSIVE METABOLIC PANEL (11/27/2017 4:35 AM) Only the most recent of 11 results within the time period is included. Component Value Ref Range Sodium 142 137 - 147 MMOL/L Potassium 3.5 3.5 - 5.1 MMOL/L Chloride 107 98 - 110 MMOL/L Glucose 175 (H) 70 - 100 MG/DL Blood Urea Nitrogen 3 (L) 7 - 25 MG/DL Creatinine 0.76 0.4 - 1.24 MG/DL Calcium 8.9 8.5 - 10.6 MG/DL Total Protein 5.8 (L) 6.0 - 8.0 G/DL Total Bilirubin 0.2 (L) 0.3 - 1.2 MG/DL Albumin 3.1 (L) 3.5 - 5.0 G/DL Alk Phosphatase 93 25 - 110 U/L AST (SGOT) 37 7 - 40 U/L CO2 27 21 - 30 MMOL/L ALT (SGPT) 276 (H) 7 - 56 U/L Anion Gap 8 3 - 12 eGFR Non >60 >60 mL/min Comment: The eGFR is not validated for use in drug dosing adjustments.Continue to use estimated creatinine clearance per dosing reference text.Please contact the Clinical Pharmacist for questions. eGFR >60 >60 mL/min Comment: The eGFR is not validated for use in drug dosing adjustments.Continue to use estimated creatinine clearance per dosing reference text.Please contact the Clinical Pharmacist for questions. Specimen Performing Laboratory [facility] [address] [place] [address] * ECG-SCAN (11/26/2017 4:50 PM) Narrative Ordered by an unspecified provider. * ECG-SCAN (11/26/2017 4:50 PM) Narrative Ordered by an unspecified provider. * IGG SUBCLASSES (11/26/2017 5:11 AM) Component Value Ref Range Total IgG 426 (L) Comment: Reference range: [id number] Unit: mg/dL [facility] IgG Subclasses #1 308 (L) Comment: Reference range: [id number] Unit: mg/dL [facility] IgG Subclasses #2 91 (L) MG/DL Comment: Reference range: [id number] [facility] IgG Subclasses #3 14.0 (L) Comment: Reference range: 18.3on184.0 Unit: mg/dL [facility] IgG Subclasses #4 14.6 Comment: Reference range: 2.8qy232.0 Unit: mg/dL [facility] Specimen Performing Laboratory [facility] * BNP (B-TYPE NATRIURETIC PEPTI) (11/25/2017 3:40 AM) Component Value Ref Range B Type Natriuretic 458.0 (H) 0 - 100 PG/ML Peptide Specimen Performing Laboratory [facility] [address] [place] [address] * ACETAMINOPHEN LEVEL (11/24/2017 3:40 AM) Only the most recent of 5 results within the time period is included. Component Value Ref Range Acetaminophen <10.0 <20.1 MCG/ML Specimen Performing Laboratory [facility] [address] [place] [address] * C DIFFICILE BY PCR (11/24/2017 1:35 AM) Component Value Ref Range Battery Name C DIFFICILE PCR Specimen Description FECES Special Requests NONE C. Difficile Toxin B PCR NEGATIVE-wait 7 days to repeat test Report Status FINAL 11/24/2017 Specimen Performing Laboratory Feces [facility] [address] [place] [address] * URINE COLLECTION (11/23/2017 2:00 PM) Component Value Ref Range Collection Period, Urine 24.0 Volume, Urine 3,624 MLS Specimen Performing Laboratory [facility] [address] [place] [address] * COPPER-URINE 24 HR (11/23/2017 2:00 PM) Component Value Ref Range Copper, 24 HR 93 (H) Comment: Reference range: <=60 Unit: mcg/24 h [facility], [address] [place] [address] Collection Period, Urine 24 Comment: Unit: h [facility], [address] [place] [address] Volume, Urine 3,624 Comment: Unit: mL ADDITIONAL INFORMATION This test was developed and its performance characteristics determined by [facility] in a manner consistent with CLIA requirements. This test has not been cleared or approved by the U.S. Food and Drug Administration. [facility], [address] [place] [address] Specimen Performing Laboratory Urine [facility] * BASIC METABOLIC PANEL (11/23/2017 11:02 AM) Only the most recent of 4 results within the time period is included. Component Value Ref Range Sodium 138 137 - 147 MMOL/L Potassium 3.6 3.5 - 5.1 MMOL/L Chloride 111 (H) 98 - 110 MMOL/L CO2 21 21 - 30 MMOL/L Anion Gap 6 3 - 12 Glucose 194 (H) 70 - 100 MG/DL Blood Urea Nitrogen 2 (L) 7 - 25 MG/DL Creatinine 0.73 0.4 - 1.24 MG/DL Calcium 8.5 8.5 - 10.6 MG/DL eGFR Non >60 >60 mL/min Comment: The eGFR is not validated for use in drug dosing adjustments.Continue to use estimated creatinine clearance per dosing reference text.Please contact the Clinical Pharmacist for questions. eGFR >60 >60 mL/min Comment: The eGFR is not validated for use in drug dosing adjustments.Continue to use estimated creatinine clearance per dosing reference text.Please contact the Clinical Pharmacist for questions. Specimen Performing Laboratory [facility] [address] [place] [address] * FACTOR 5 ASSAY (11/23/2017 3:11 AM) Only the most recent of 3 results within the time period is included. Component Value Ref Range Factor 5 164 (H) 50 - 150 % Specimen Performing Laboratory [facility] [address] [place] [address] * LIPASE (11/23/2017 3:11 AM) Only the most recent of 3 results within the time period is included. Component Value Ref Range Lipase 269 (H) 11 - 82 U/L Specimen Performing Laboratory [facility] [address] [place] [address] * AMMONIA (11/23/2017 3:11 AM) Only the most recent of 3 results within the time period is included. Component Value Ref Range Ammonia 32 9 - 35 MCMOL/L Specimen Performing Laboratory [facility] [address] [place] [address] * TROPONIN-I (11/22/2017 7:34 PM) Only the most recent of 6 results within the time period is included. Component Value Ref Range Troponin-I 0.26 (H) 0.0 - 0.05 NG/ML Specimen Performing Laboratory [facility] [address] [place] [address] * CT ABD/PELV W CONTRAST (11/22/2017 2:18 PM) Specimen Performing Laboratory [facility] RESULTS Impressions 1. Moderate inflammatory stranding about the pancreas compatible with pancreatitis. No associated organizing fluid collections are appreciated. 2. Small bilateral pleural effusions with patchy lower lung consolidations which may be atelectasis and/or pneumonia. 3. Small faint hypodensity in the left kidney which is somewhat irregular and higher density than a simple cyst. This may be a hemorrhagic cyst, however a follow-up three-phase abdominal CT with contrast in 3-6 months is recommended to assess for stability. 4. Mild ascites. Finalized by Oebd Rivera M.D. on 11/22/2017 8:09 PM. Dictated by Obed Rivera M.D. on 11/22/2017 8:[address] Abdomen and Pelvis Clinical Indication: Pancreatitis. Technique:Multiple contiguous axial images were obtained through the abdomen and pelvis during IV administration of 80 mL Isovue-370 IV contrast. Post processing coronal and sagittal reconstruction images were made from the axial images. Comparison: None available. FINDINGS: Lower Thorax: There are small bilateral pleural effusions with patchy lower lung consolidations which may be atelectasis and/or pneumonia. Liver and Biliary system: Unremarkable. Spleen: Unremarkable. Adrenal Glands and Kidneys: There is a small faint hypodensity in the left kidney which may be a cyst, but is somewhat ill-defined and higher density than a simple cyst. The adrenal glands and kidneys are otherwise unremarkable. Pancreas and Retroperitoneum: There is moderate peripancreatic fat stranding. The pancreatic parenchyma enhances normally. The splenic vein is patent. There is no pancreatic ductal dilatation. No organizing peripancreatic fluid collections are identified. Aorta and Major Vessels: Unremarkable. Bowel, Mesentery and Peritoneal space: Large and small bowel loops are normal in caliber. There is mild mesenteric stranding and mild ascites. No mesenteric lymphadenopathy is appreciated. The appendix is unremarkable. Pelvis: The urinary bladder is incompletely distended. The prostate is normal for age. There is no pelvic lymphadenopathy. There is mild pelvic ascites. Abdominal wall and Osseous Structures: Unremarkable. There is mild body wall edema compatible with anasarca. Procedure Note Interface, Radiant Results - 11/22/2017 8:[address] Abdomen and Pelvis Clinical Indication: Pancreatitis. Technique: Multiple contiguous axial images were obtained through the abdomen and pelvis during IV administration of 80 mL Isovue-370 IV contrast. Post processing coronal and sagittal reconstruction images were made from the axial images. Comparison: None available. FINDINGS: Lower Thorax: There are small bilateral pleural effusions with patchy lower lung consolidations which may be atelectasis and/or pneumonia. Liver and Biliary system: Unremarkable. Spleen: Unremarkable. Adrenal Glands and Kidneys: There is a small faint hypodensity in the left kidney which may be a cyst, but is somewhat ill-defined and higher density than a simple cyst. The adrenal glands and kidneys are otherwise unremarkable. Pancreas and Retroperitoneum: There is moderate peripancreatic fat stranding. The pancreatic parenchyma enhances normally. The splenic vein is patent. There is no pancreatic ductal dilatation. No organizing peripancreatic fluid collections are identified. Aorta and Major Vessels: Unremarkable. Bowel, Mesentery and Peritoneal space: Large and small bowel loops are normal in caliber. There is mild mesenteric stranding and mild ascites. No mesenteric lymphadenopathy is appreciated. The appendix is unremarkable. Pelvis: The urinary bladder is incompletely distended. The prostate is normal for age. There is no pelvic lymphadenopathy. There is mild pelvic ascites. Abdominal wall and Osseous Structures: Unremarkable. There is mild body wall edema compatible with anasarca. IMPRESSION 1. Moderate inflammatory stranding about the pancreas compatible with pancreatitis. No associated organizing fluid collections are appreciated. 2. Small bilateral pleural effusions with patchy lower lung consolidations which may be atelectasis and/or pneumonia. 3. Small faint hypodensity in the left kidney which is somewhat irregular and higher density than a simple cyst. This may be a hemorrhagic cyst, however a follow-up three-phase abdominal CT with contrast in 3-6 months is recommended to assess for stability. 4. Mild ascites. Finalized by Obed Rivera M.D. on 11/22/2017 8:09 PM. Dictated by Obed Rivera M.D. on 11/22/2017 8:02 PM. * BLOOD GASES, ARTERIAL (11/22/2017 3:05 AM) Only the most recent of 5 results within the time period is included. Component Value Ref Range pH-Arterial 7.37 7.35 - 7.45 pCO2-Arterial 28 (L) 35 - 45 MMHG pO2-Arterial 69 (L) 80 - 100 MMHG Base Deficit-Arterial 7.9 MMOL/L O2 Sat-Arterial 94.3 (L) 95 - 99 % Ucnbqdybgld-EAP-Ngi 18.0 (L) 21 - 28 MMOL/L Specimen Performing Laboratory Blood, arterial - Blood [facility] [address] [place] [address] * O2 SATURATION, CENTRAL VENOUS (11/21/2017 1:21 PM) Component Value Ref Range O2 Sat, Central Venous 77.4 % Specimen Performing Laboratory [facility] [address] [place] [address] * LACTIC ACID (BG - RAPID LACTATE) (11/21/2017 1:21 PM) Only the most recent of 2 results within the time period is included. Component Value Ref Range Lactic Acid,BG 1.1 0.5 - 2.0 MMOL/L Specimen Performing Laboratory [facility] [address] [place] [address] * 2-D + DOPPLER ECHOCARDIOGRAM (11/21/2017 10:37 AM) Component Value Ref Range BSA 1.9 m2 IVS 0.78 0.6 - 1.0 cm LVIDD 4.21 4.2 - 5.8 cm LVIDS 3.19 2.5 - 4.0 cm PW 0.93 0.6 - 1.0 cm TDI e' 0.08 m/s Right Ventricular Mid 2.82 1.9 - 3.5 cm Diameter LA size 2.84 3.0 - 4.0 cm LA volume 18.89 18 - 58 mL Right Atrial Area 12.98 <18 cm2 Right Atrial Major 4.62 2.1 - 2.7 cm Dimension and a peak gradient of 4.97 mmHg AV peak velocity 1.12 m/s MV Peak A Eric 0.60 m/s MV Peak E Eric PW 0.62 m/s Right Heart Systolic 1.62 >1.7 cm Mmode TAPSE Right Ventricular Basal 3.79 2.5 - 4.1 cm Diameter Sinus 2.65 3.1 - 3.7 cm CV ECHO PV [employer] ELICEO Mayo ([id number]) Bubbles and Definity LV mass 111.14 96 - 200 g RWT 0.44 <=0.42 TV rest pulmonary artery 31 mmHg pressure Right Heart Systolic TDI 0.086 m/s S' Cardiology Ultrasound Siemens [id number] Machine Left Ventricle Mass Index 58.49 50 - 102 g/m2 FS 24.23 28 - 44 % EF 41.19 % Left Atrium Index 9.94 16 - 34 E/A ratio 1.03 E/E' ratio 7.75 ECHO EF 40 % Specimen Performing Laboratory OTHER OUTSIDE LAB Narrative 1.Moderately depressed left ventricular function.Diffuse hypokinesis. Ejection fraction=35-40%.Normal filling pressure. 2.No valve disease. 3.Normal pulmonary artery pressure. 4.Normal right ventricle size and ejection fraction. 5.No intracardiac shunt. 6.No previous echocardiogram for comparison. * GRAM STAIN (11/21/2017 8:24 AM) Component Value Ref Range Battery Name GRAM STAIN Specimen Description TRACHEAL ASPIRATE Special Requests NONE Gram Stain GREATER THAN 25/LPF NEUTROPHILS LESS THAN 10/LPF SQUAMOUS EPITHELIAL CELLS MANY GRAM POSITIVE COCCI RESEMBLING STREPTOCOCCI FEW GRAM POSITIVE COCCI RESEMBLING STAPHYLOCOCCI Report Status FINAL 11/21/2017 Specimen Performing Laboratory Tracheal Aspirate MA[facility] [address] [place] [address] * CULTURE-RESP,LOWER W/SENSITIVITY (11/21/2017 8:24 AM) Component Value Ref Range Battery Name LOWER RESP CULTURE Specimen Description TRACHEAL ASPIRATE Special Requests NONE Direct Gram Stain GREATER THAN 25/LPF NEUTROPHILS LESS THAN 10/LPF SQUAMOUS EPITHELIAL CELLS MANY GRAM POSITIVE COCCI RESEMBLING STREPTOCOCCI FEW GRAM POSITIVE COCCI RESEMBLING STAPHYLOCOCCI Culture Heavy growth STREPTOCOCCUS PNEUMONIAE (A) Report Status FINAL 11/24/2017 Organism ID Heavy growth STREPTOCOCCUS PNEUMONIAE Organism ID Heavy growth STREPTOCOCCUS PNEUMONIAE Specimen Performing Laboratory Tracheal Aspirate [facility] [address] [place] [address] Organism Antibiotic Method Susceptibility Heavy growth Penicillin G ETEST 0.032 SUSCEPTIBLE: streptococcus pneumoniae Susceptible Heavy growth Penicillin (CSF) ETEST 0.032 SUSCEPTIBLE: streptococcus pneumoniae Susceptible Heavy growth Ceftriaxone ETEST 0.047 SUSCEPTIBLE: streptococcus pneumoniae Susceptible Heavy growth Ceftriaxone(CSF) ETEST 0.047 SUSCEPTIBLE: streptococcus pneumoniae Susceptible Heavy growth Method ETEST ETEST streptococcus pneumoniae Heavy growth Erythromycin NUÑEZ HA SUSCEPTIBLE: Susceptible streptococcus pneumoniae Heavy growth Clindamycin NUÑEZ HA SUSCEPTIBLE: Susceptible streptococcus pneumoniae Heavy growth Levofloxacin NUÑEZ HA SUSCEPTIBLE: Susceptible streptococcus pneumoniae Heavy growth Method NUÑEZ HA NUÑEZ HA streptococcus pneumoniae * ARTERIAL LINE (11/21/2017 8:09 AM) Mercedes Hines DO 11/21/20173:11 AM Arterial Line Date/Time: 11/21/2017 3:09 AM Performed by: MERCEDES FLORES Authorized by: HENRI SAINZ Consent: The procedure was performed in an emergent situation. Patient identity confirmed: verbally with patient, arm band and hospital-assigned identification number Time out: Immediately prior to procedure a "time out" was called to verify the correct patient, procedure, equipment, customer support executive and site/side marked as required. Preparation: Patient was prepped and draped in the usual sterile fashion. Indications: multiple ABGs and hemodynamic monitoring Location: left radial Sedation: Patient sedated: yes Sedatives: see MAR for details Catracho's test normal: yes Needle gauge: 20 Seldinger technique: Seldinger technique used Number of attempts: 2 Post-procedure: dressing applied Post-procedure CMS: normal Patient tolerance: Patient tolerated the procedure well with no immediate complications Comments: Arterial line placed for hemodynamic monitoring and frequent ABG. Ultrasound guidance used. Tolerated procedure well. No immediate complications. * PROCALCITONIN (11/21/2017 8:00 AM) Component Value Ref Range Procalcitonin 12.75 (H) <0.10 NG/ML Specimen Performing Laboratory [facility] [address] [place] [address] * CT HEAD WO CONTRAST (11/21/2017 6:16 AM) Specimen Performing Laboratory [facility] RESULTS Impressions No evidence of intracranial hemorrhage or mass effect. Finalized by Malcolm Valentino M.D. on 11/21/2017 6:18 AM. Dictated by Malcolm Valentino M.D. on 11/21/2017 6:[address] head without contrast Clinical History:Tylenol overdose and unresponsive. Technique: Multiple contiguous axial images were obtained from the base of the skull to the vertex without IV contrast.Coronal reformatted images created from axial data. Comparison: No prior exams are available for comparison Findings: The ventricles and sulci are within normal limits for age. There is no midline shift or gross mass effect. The basal cisterns are patent. There is no evidence of acute intracranial hemorrhage or extra-axial fluid collections. The lock- white matter interfaces are grossly preserved. The visualized paranasal sinuses and mastoid air cells are clear.The calvarium is intact. Procedure Note Interface, Radiant Results - 11/21/2017 6:[address] head without contrast Clinical History:Tylenol overdose and unresponsive. Technique: Multiple contiguous axial images were obtained from the base of the skull to the vertex without IV contrast. Coronal reformatted images created from axial data. Comparison: No prior exams are available for comparison Findings: The ventricles and sulci are within normal limits for age. There is no midline shift or gross mass effect. The basal cisterns are patent. There is no evidence of acute intracranial hemorrhage or extra-axial fluid collections. The lock- white matter interfaces are grossly preserved. The visualized paranasal sinuses and mastoid air cells are clear. The calvarium is intact. IMPRESSION No evidence of intracranial hemorrhage or mass effect. Finalized by Malcolm Valentino M.D. on 11/21/2017 6:18 AM. Dictated by Malcolm Valentino M.D. on 11/21/2017 6:16 AM. * US DOPPLER ABD PELV RETROPER COMP (11/21/2017 4:00 AM) Specimen Performing Laboratory [facility] RESULTS Impressions 1.Mildly enlarged liver with diffuse increased parenchymal echogenicity, suggesting steatosis. 2.Patency of the hepatic vessels. However, there is abnormal low velocity flow within the proper hepatic artery, which is likely due to altered hemodynamics in the setting of acute liver failure. A repeat liver Doppler is recommended in 4-7 days (or sooner if clinically indicated) to evaluate for improvement in these findings. 3. Small volume perihepatic ascites. Approved by Be Kwong M.D. on 11/21/2017 9:03 AM By my electronic signature, I attest that I have personally reviewed the images for this examination and formulated the interpretations and opinions expressed in this report Finalized by Aide Osman M.D. on 11/21/2017 12:25 PM. Dictated by Be Kwong M.D. on 11/21/2017 8:06 AM. Narrative Abdominal Ultrasound with Doppler Clinical Indication: Male, 47 years; acute liver injury, Tylenol overdose Technique: Multiple grayscale sonographic images were obtained through the abdomen with additional color and spectral Doppler acquisitions. Comparison: None Findings: Liver and Biliary System:Diffusely increased hepatic echotexture and mild parenchymal heterogeneity. Mildly enlarged measuring 20.7 cm. No discrete hepatic masses are identified. There is no intrahepatic bile duct dilatation. The common duct measures 0.3 cm.The gallbladder is nondilated. There is no cholelithiasis or gallbladder wall thickening. Main portal vein: Hepatopetal, peak velocity 51 cm/sec. Right and left portal veins:Hepatopetal . Splenic vein: Normal direction of flow at midline and splenic hilum. IVC: Normal pulsatility and flow. Hepatic veins: Normal flow and pulsatility. Hepatic arteries: The proper hepatic artery is patent with a very small caliber and low velocities with peak systolic velocities ranging from 20-23 cm/s. The resistive indices within the proper hepatic artery are borderline elevated at 0.75. Pancreas: Visualized portions of the pancreas are unremarkable. Spleen: normal in size measuring 12.5 cm. Aorta: Visualized portions of the aorta are normal in caliber. Kidneys: The right kidney measures 10.7 cm.The left kidney measures 10.9 cm.No hydronephrosis.. Peritoneal Space: A Munoz catheter is in place within the nondistended urinary bladder.Small volume abdominal ascites Procedure Note Interface, Radiant Results - 11/21/2017 12:28 PM CDT Abdominal Ultrasound with Doppler Clinical Indication: Male, 47 years; acute liver injury, Tylenol overdose Technique: Multiple grayscale sonographic images were obtained through the abdomen with additional color and spectral Doppler acquisitions. Comparison: None Findings: Liver and Biliary System: Diffusely increased hepatic echotexture and mild parenchymal heterogeneity. Mildly enlarged measuring 20.7 cm. No discrete hepatic masses are identified. There is no intrahepatic bile duct dilatation. The common duct measures 0.3 cm. The gallbladder is nondilated. There is no cholelithiasis or gallbladder wall thickening. Main portal vein: Hepatopetal, peak velocity 51 cm/sec. Right and left portal veins: Hepatopetal . Splenic vein: Normal direction of flow at midline and splenic hilum. IVC: Normal pulsatility and flow. Hepatic veins: Normal flow and pulsatility. Hepatic arteries: The proper hepatic artery is patent with a very small caliber and low velocities with peak systolic velocities ranging from 20-23 cm/s. The resistive indices within the proper hepatic artery are borderline elevated at 0.75. Pancreas: Visualized portions of the pancreas are unremarkable. Spleen: normal in size measuring 12.5 cm. Aorta: Visualized portions of the aorta are normal in caliber. Kidneys: The right kidney measures 10.7 cm. The left kidney measures 10.9 cm. No hydronephrosis.. Peritoneal Space: A Munoz catheter is in place within the nondistended urinary bladder. Small volume abdominal ascites IMPRESSION 1. Mildly enlarged liver with diffuse increased parenchymal echogenicity, suggesting steatosis. 2. Patency of the hepatic vessels. However, there is abnormal low velocity flow within the proper hepatic artery, which is likely due to altered hemodynamics in the setting of acute liver failure. A repeat liver Doppler is recommended in 4-7 days (or sooner if clinically indicated) to evaluate for improvement in these findings. 3. Small volume perihepatic ascites. Approved by Be Kwong M.D. on 11/21/2017 9:03 AM By my electronic signature, I attest that I have personally reviewed the images for this examination and formulated the interpretations and opinions expressed in this report Finalized by Aide Osman M.D. on 11/21/2017 12:25 PM. Dictated by Be Kwong M.D. on 11/21/2017 8:06 AM. * US ABDOMEN COMPLETE (11/21/2017 4:00 AM) Specimen Performing Laboratory [facility] RESULTS Impressions 1.Mildly enlarged liver with diffuse increased parenchymal echogenicity, suggesting steatosis. 2.Patency of the hepatic vessels. However, there is abnormal low velocity flow within the proper hepatic artery, which is likely due to altered hemodynamics in the setting of acute liver failure. A repeat liver Doppler is recommended in 4-7 days (or sooner if clinically indicated) to evaluate for improvement in these findings. 3. Small volume perihepatic ascites. Approved by Be Kwong M.D. on 11/21/2017 9:03 AM By my electronic signature, I attest that I have personally reviewed the images for this examination and formulated the interpretations and opinions expressed in this report Finalized by Aide Osman M.D. on 11/21/2017 12:25 PM. Dictated by Be Kwong M.D. on 11/21/2017 8:06 AM. Narrative Abdominal Ultrasound with Doppler Clinical Indication: Male, 47 years; acute liver injury, Tylenol overdose Technique: Multiple grayscale sonographic images were obtained through the abdomen with additional color and spectral Doppler acquisitions. Comparison: None Findings: Liver and Biliary System:Diffusely increased hepatic echotexture and mild parenchymal heterogeneity. Mildly enlarged measuring 20.7 cm. No discrete hepatic masses are identified. There is no intrahepatic bile duct dilatation. The common duct measures 0.3 cm.The gallbladder is nondilated. There is no cholelithiasis or gallbladder wall thickening. Main portal vein: Hepatopetal, peak velocity 51 cm/sec. Right and left portal veins:Hepatopetal . Splenic vein: Normal direction of flow at midline and splenic hilum. IVC: Normal pulsatility and flow. Hepatic veins: Normal flow and pulsatility. Hepatic arteries: The proper hepatic artery is patent with a very small caliber and low velocities with peak systolic velocities ranging from 20-23 cm/s. The resistive indices within the proper hepatic artery are borderline elevated at 0.75. Pancreas: Visualized portions of the pancreas are unremarkable. Spleen: normal in size measuring 12.5 cm. Aorta: Visualized portions of the aorta are normal in caliber. Kidneys: The right kidney measures 10.7 cm.The left kidney measures 10.9 cm.No hydronephrosis.. Peritoneal Space: A Munoz catheter is in place within the nondistended urinary bladder.Small volume abdominal ascites Procedure Note Interface, Radiant Results - 11/21/2017 12:28 PM CDT Abdominal Ultrasound with Doppler Clinical Indication: Male, 47 years; acute liver injury, Tylenol overdose Technique: Multiple grayscale sonographic images were obtained through the abdomen with additional color and spectral Doppler acquisitions. Comparison: None Findings: Liver and Biliary System: Diffusely increased hepatic echotexture and mild parenchymal heterogeneity. Mildly enlarged measuring 20.7 cm. No discrete hepatic masses are identified. There is no intrahepatic bile duct dilatation. The common duct measures 0.3 cm. The gallbladder is nondilated. There is no cholelithiasis or gallbladder wall thickening. Main portal vein: Hepatopetal, peak velocity 51 cm/sec. Right and left portal veins: Hepatopetal . Splenic vein: Normal direction of flow at midline and splenic hilum. IVC: Normal pulsatility and flow. Hepatic veins: Normal flow and pulsatility. Hepatic arteries: The proper hepatic artery is patent with a very small caliber and low velocities with peak systolic velocities ranging from 20-23 cm/s. The resistive indices within the proper hepatic artery are borderline elevated at 0.75. Pancreas: Visualized portions of the pancreas are unremarkable. Spleen: normal in size measuring 12.5 cm. Aorta: Visualized portions of the aorta are normal in caliber. Kidneys: The right kidney measures 10.7 cm. The left kidney measures 10.9 cm. No hydronephrosis.. Peritoneal Space: A Munoz catheter is in place within the nondistended urinary bladder. Small volume abdominal ascites IMPRESSION 1. Mildly enlarged liver with diffuse increased parenchymal echogenicity, suggesting steatosis. 2. Patency of the hepatic vessels. However, there is abnormal low velocity flow within the proper hepatic artery, which is likely due to altered hemodynamics in the setting of acute liver failure. A repeat liver Doppler is recommended in 4-7 days (or sooner if clinically indicated) to evaluate for improvement in these findings. 3. Small volume perihepatic ascites. Approved by Be Kwong M.D. on 11/21/2017 9:03 AM By my electronic signature, I attest that I have personally reviewed the images for this examination and formulated the interpretations and opinions expressed in this report Finalized by Aide Osman M.D. on 11/21/2017 12:25 PM. Dictated by Be Kwong M.D. on 11/21/2017 8:06 AM. * CULTURE-BLOOD W/SENSITIVITY (11/21/2017 3:20 AM) Only the most recent of 2 results within the time period is included. Component Value Ref Range Battery Name BLOOD CULTURE Specimen Description BLOOD NO SITE INDICATED Special Requests NONE Culture NO GROWTH 5 DAYS Report Status FINAL 11/27/2017 Specimen Performing Laboratory [facility] [address] [place] [address] * CHEST SINGLE VIEW (11/21/2017 2:13 AM) Specimen Performing Laboratory [facility] RESULTS Impressions 1. Placement of several indwelling medical devices as described. No pneumothorax. 2. Upper limits of normal size heart with bibasilar atelectasis. Approved by Vinnie Horvath M.D. on 11/21/2017 10:00 AM By my electronic signature, I attest that I have personally reviewed the images for this examination and formulated the interpretations and opinions expressed in this report Finalized by Rony Moore M.D. on 11/21/2017 4:00 PM. Dictated by Vinnie Horvath M.D. on 11/21/2017 8:49 AM. Narrative CHEST SINGLE VIEW Clinical Indication: Male, 47 years old. Central line placement. Intubated. Comparison: None Findings: Right IJ central venous catheter is in place, with tip projecting over the low SVC. Gastric tube descends beneath the level of the diaphragm and tip not visualized in [id number]. Endotracheal tube projects at the level of the clavicular heads. The heart size isupper limits of normal without pulmonary vascular congestion. There is mild bibasilar atelectasis. No pneumothorax. Procedure Note Interface, Radiant Results - 11/21/2017 4:03 PM CDT CHEST SINGLE VIEW Clinical Indication: Male, 47 years old. Central line placement. Intubated. Comparison: None Findings: Right IJ central venous catheter is in place, with tip projecting over the low SVC. Gastric tube descends beneath the level of the diaphragm and tip not visualized in [id number]. Endotracheal tube projects at the level of the clavicular heads. The heart size is upper limits of normal without pulmonary vascular congestion. There is mild bibasilar atelectasis. No pneumothorax. IMPRESSION 1. Placement of several indwelling medical devices as described. No pneumothorax. 2. Upper limits of normal size heart with bibasilar atelectasis. Approved by Vinnie Horvath M.D. on 11/21/2017 10:00 AM By my electronic signature, I attest that I have personally reviewed the images for this examination and formulated the interpretations and opinions expressed in this report Finalized by Rony Moore M.D. on 11/21/2017 4:00 PM. Dictated by Vinnie Horvath M.D. on 11/21/2017 8:49 AM. * UA REFLEX CULTURE LABEL (11/21/2017 2:00 AM) Component Value Ref Range UA Reflex Culture LAB LABEL Specimen Performing Laboratory [facility] [address] [place] [id number] * TEG WITH KAOLIN (11/21/2017 2:00 AM) Component Value Ref Range MA Kaolin 66.1 50.0 - 70.0 MM R Kaolin 4.6 3.0 - 9.0 MIN RK Kaolin 5.8 4.0 - 12.0 MIN K Kaolin 1.2 1.0 - 3.0 MIN Angle Kaolin 73.6 55 - 75 DEG Lysis30 17.5 (H) 0.0 - 8.0 % Specimen Performing Laboratory [facility] * URINALYSIS, MICROSCOPIC (11/21/2017 2:00 AM) Component Value Ref Range WBCs,UA 2-5 0 - 2 /HPF RBCs,UA 0-2 0 - 3 /HPF Amorphous Sedimate,UA TRACE Bacteria,UA FEW (A) NEG-NEG Specimen Performing Laboratory [facility] [address] [place] [address] * URINALYSIS DIPSTICK (11/21/2017 2:00 AM) Component Value Ref Range Color,UA YELLOW Turbidity,UA CLEAR CLEAR-CLEAR Specific Oklee-Urine 1.040 (H) 1.003 - 1.035 pH,UA 5.0 5.0 - 8.0 Protein,UA 1+ (A) NEG-NEG Glucose,UA 1+ (A) NEG-NEG Ketones,UA 1+ (A) NEG-NEG Bilirubin,UA POS (A) NEG-NEG Blood,UA NEG NEG-NEG Urobilinogen,UA NORMAL NORM-NORMAL Nitrite,UA NEG NEG-NEG Leukocytes,UA NEG NEG-NEG Specimen Performing Laboratory Urine [address] [address] * PHENCYCLIDINES-URINE RANDOM (11/21/2017 2:00 AM) Component Value Ref Range Phencyclidine (PCP) NEG NEG-NEG Comment: RESULTS WERE OBTAINED BY IMMUNOASSAY AND ARE PRESUMPTIVE ONLY. POSITIVE INDICATES THE PRESENCE OF SUBSTANCE WITH CHARACTERISTICS SIMILAR TO DRUG-DRUG CLASS OR METABOLITE IN CONC. EQUAL TO OR EXCEEDING VALUES LISTED. PHENCYCLIDINE (PCP)25 NG/ML Specimen Performing Laboratory Urine [facility] [address] [place] [address] * OPIATES-URINE RANDOM (11/21/2017 2:00 AM) Component Value Ref Range Opiates-Urine NEG NEG-NEG Comment: RESULTS WERE OBTAINED BY IMMUNOASSAY AND ARE PRESUMPTIVE ONLY. POSITIVE INDICATES THE PRESENCE OF SUBSTANCE WITH CHARACTERISTICS SIMILAR TO DRUG-DRUG CLASS OR METABOLITE IN CONC. EQUAL TO OR EXCEEDING VALUES LISTED. [id number] 0 NG/ML Specimen Performing Laboratory Urine [address] [address] * COCAINE-URINE RANDOM (11/21/2017 2:00 AM) Component Value Ref Range Cocaine-Urine NEG NEG-NEG Comment: RESULTS WERE OBTAINED BY IMMUNOASSAY AND ARE PRESUMPTIVE ONLY. POSITIVE INDICATES THE PRESENCE OF SUBSTANCE WITH CHARACTERISTICS SIMILAR TO DRUG-DRUG CLASS OR METABOLITE IN CONC. EQUAL TO OR EXCEEDING VALUES LISTED. COCAINE 300 NG/ML Specimen Performing Laboratory Urine [address] [address] * CANNABINOIDS-URINE RANDOM (11/21/2017 2:00 AM) Component Value Ref Range THC NEG NEG-NEG Comment: RESULTS WERE OBTAINED BY IMMUNOASSAY AND ARE PRESUMPTIVE ONLY. POSITIVE INDICATES THE PRESENCE OF SUBSTANCE WITH CHARACTERISTICS SIMILAR TO DRUG-DRUG CLASS OR METABOLITE IN CONC. EQUAL TO OR EXCEEDING VALUES LISTED. [id number] NG/ML Specimen Performing Laboratory Urine [facility] [address] [place] [address] * BENZODIAZEPINES-URINE RANDOM (11/21/2017 2:00 AM) Component Value Ref Range Benzodiazepines POS (A) NEG-NEG Comment: RESULTS WERE OBTAINED BY IMMUNOASSAY AND ARE PRESUMPTIVE ONLY. POSITIVE INDICATES THE PRESENCE OF SUBSTANCE WITH CHARACTERISTICS SIMILAR TO DRUG-DRUG CLASS OR METABOLITE IN CONC. EQUAL TO OR EXCEEDING VALUES LISTED. BENZODIAZEPINES 200 NG/ML Specimen Performing Laboratory [facility] [address] [place] [address] * BARBITURATES-URINE RANDOM (11/21/2017 2:00 AM) Component Value Ref Range Barbiturates,Urine NEG NEG-NEG Comment: RESULTS WERE OBTAINED BY IMMUNOASSAY AND ARE PRESUMPTIVE ONLY. POSITIVE INDICATES THE PRESENCE OF SUBSTANCE WITH CHARACTERISTICS SIMILAR TO DRUG-DRUG CLASS OR METABOLITE IN CONC. EQUAL TO OR EXCEEDING VALUES LISTED. [id number] NG/ML Specimen Performing Laboratory [facility] [address] [place] [address] * AMPHETAMINES-URINE RANDOM (11/21/2017 2:00 AM) Component Value Ref Range Amphetamines NEG NEG-NEG Comment: RESULTS WERE OBTAINED BY IMMUNOASSAY AND ARE PRESUMPTIVE ONLY. POSITIVE INDICATES THE PRESENCE OF SUBSTANCE WITH CHARACTERISTICS SIMILAR TO DRUG-DRUG CLASS OR METABOLITE IN CONC. EQUAL TO OR EXCEEDING VALUES LISTED. AMPHETAMINES 1000 NG/ML Specimen Performing Laboratory Urine [facility] [address] [place] [address] * HEPATITIS A IGG (11/21/2017 1:55 AM) Component Value Ref Range Hepatitis A IGG NEG Note: Test type and methodology has changed.The [facility] lab has discontinued the test for Total Hep A Immunoglobulin.This test has been replaced with more specific testing.The tests for Hep A IgG and Hep A IgM are both now available and can be ordered. Specimen Performing Laboratory Blood [facility] [address] [place] [address] * IRON + BINDING CAPACITY + %SAT+ FERRITIN (11/21/2017 1:55 AM) Component Value Ref Range Iron 64 50 - 185 MCG/DL Iron Binding-TIBC 289 270 - 380 MCG/DL % Saturation 22 (L) 28 - 42 % Ferritin 404 (H) 30 - 300 NG/ML Specimen Performing Laboratory Blood [facility] [address] [place] [address] * HIV-1/2 ANTIGEN/ANTIBODY SCREEN (11/21/2017 1:55 AM) Component Value Ref Range HIV 1 and 2 AG AB Screen NEG NEG-NEG Specimen Performing Laboratory Blood [facility] [address] [place] [address] * TSH WITH FREE T4 REFLEX (11/21/2017 1:55 AM) Component Value Ref Range TSH 1.070 0.35 - 5.00 MCU/ML Specimen Performing Laboratory Blood [facility] [address] [place] [address] * BETA HYDROXYBUTYRATE (KETONES) (11/21/2017 1:55 AM) Component Value Ref Range Beta Hydroxybutyrate 0.5 (H) <0.3 MMOL/L Comment: Beta hydroxybutyrate (BOHB) is the most abundant ketone (78%), followed by acetoacetate (20%) and acetone (2%).Measurement BOHB is recommended to assess ketones in DKA. Expected BOHB Results for DKA: Initial presentation high/increasing During treatment decreasing Resolved decreasing/normal Specimen Performing Laboratory [facility] [address] [place] [address] * ABO/RH(D) (11/21/2017 1:55 AM) Component Value Ref Range ABO/RH(D) A POS Specimen Performing Laboratory [facility] [address] [place] [address] * TOTAL THYROXINE T4 (11/21/2017 1:55 AM) Component Value Ref Range T4 (Total) 5.3 (L) 6.1 - 12.3 MCG/DL Specimen Performing Laboratory [facility] [address] [place] [address] * HSV I/II GLYCOPROTEIN G AB (11/21/2017 1:55 AM) Component Value Ref Range HSV Type 1 IgG NEG NEG-NEG HSV Type 2 IgG NEG NEG-NEG Specimen Performing Laboratory [facility] [address] [place] [address] * HEPATITIS C AB (11/21/2017 1:55 AM) Component Value Ref Range Anti HCV NEG NEG-NEG Specimen Performing Laboratory [facility] [address] [place] [address] * HEPATITIS B CORE IGM AB (11/21/2017 1:55 AM) Component Value Ref Range Anti HBc IgM NEG NEG-NEG Specimen Performing Laboratory [facility] [address] [place] [address] * HEPATITIS C VIRAL LOAD PCR QUANT (11/21/2017 1:55 AM) Component Value Ref Range Hepatitis C PCR HCV RNA Not Detected, <12 IU/mL <12 IU/ML Quantitative Comment: The test method detects HCV viral load using the [employer] RealTime assay. Please correlate results with the clinical status of the patient. Log 10 HCV <1.08 <1.08 IU/mL Specimen Performing Laboratory [facility] [address] [place] [address] * HEPATITIS B SURFACE AG (11/21/2017 1:55 AM) Component Value Ref Range HBsAg NEG NEG-NEG Specimen Performing Laboratory [facility] [address] [place] [address] * GGTP (11/21/2017 1:55 AM) Component Value Ref Range GGTP 40 9 - 64 U/L Specimen Performing Laboratory [facility] [address] [place] [address] * NADEEM PORTER PANEL(EBV) (11/21/2017 1:55 AM) Component Value Ref Range EBV Capsid IgG POS EBV Nuclear Ag,Ab POS EBV Early Ag,Ab NEG EBV Capsid IgM NEG NEG-NEG Specimen Performing Laboratory [facility] [address] [place] [address] * CMV AB IGM (11/21/2017 1:55 AM) Component Value Ref Range CMV, IgM NEG NEG-NEG Specimen Performing Laboratory [facility] [address] [place] [address] * CMV AB IGG (11/21/2017 1:55 AM) Component Value Ref Range CMV, IgG POS Specimen Performing Laboratory [facility] [address] [place] [address] * CERULOPLASMIN (11/21/2017 1:55 AM) Component Value Ref Range Ceruloplasmin 15.6 (L) 20.0 - 60.0 mg/dL Specimen Performing Laboratory Blood [facility] [address] [place] [id number] * ANTI-SMOOTH MUSCLE AB (11/21/2017 1:55 AM) Component Value Ref Range Anti-Smooth Muscle Screen <20 <20 TITER Specimen Performing Laboratory Blood MAIN LAB [address] [place] [id number] * ANTI-MITOCHONDRIAL ANTIBODY (11/21/2017 1:55 AM) Component Value Ref Range Anti-Mitochondrial Screen <20 <20 TITER Specimen Performing Laboratory Blood MAIN LAB [address] [place] [address] [id number] * ALPHA FETO PROTEIN (AFP) (11/21/2017 1:55 AM) Component Value Ref Range Alpha Feto Protein 4.0 0.0 - 15.0 NG/ML Specimen Performing Laboratory Blood MAIN LAB [address] [place] [id number] * ALPHA 1 ANTITRYPSIN PHENOTYPE (11/21/2017 1:55 AM) Component Value Ref Range Alpha 1 Anti-Trypsin 92 (L) Comment: Reference range: [id number] Unit: mg/dL [facility] Alpha 1 Antitrypsin M Phenotype Unit: bands An unidentified allele is also noted. [facility] Specimen Performing Laboratory Blood REFERENCE LAB * PTT (APTT) (11/21/2017 1:55 AM) Component Value Ref Range APTT 22.6 21.0 - 39.0 SEC Specimen Performing Laboratory Blood MAIN LAB [address] [place] [id number] * FIBRINOGEN (11/21/2017 1:55 AM) Component Value Ref Range Fibrinogen 222 200 - 400 MG/DL Specimen Performing Laboratory Blood MAIN LAB [address] [place] [id number] * VARICELLA ZOSTER AB IGG (11/21/2017 1:55 AM) Component Value Ref Range Varcella Zoster IgG POS Specimen Performing Laboratory Blood MAIN LAB [address] [place] [address] [id number] * ANTI-NUCLEAR ANTIBODY(DANIKA) (11/21/2017 1:55 AM) Component Value Ref Range DANIKA Screen <80 <80 TITER Specimen Performing Laboratory Blood MAIN LAB [address] [place] [address] [id number] * OSMOLALITY (11/21/2017 1:55 AM) Component Value Ref Range Osmolality 301 280 - 307 MOSMOL/KG Specimen Performing Laboratory MAIN LAB [address] [place] [id number] * LDH-LACTATE DEHYDROGENASE (11/21/2017 1:55 AM) Component Value Ref Range Lactate Dehydrogenase 830 (H) 100 - 210 U/L Specimen Performing Laboratory Blood MAIN LAB [address] [place] [address] [id number] * AMYLASE (11/21/2017 1:55 AM) Component Value Ref Range Amylase 588 (H) 24 - 100 U/L Specimen Performing Laboratory Blood MAIN LAB [address] [place] [address] [id number] * ALCOHOL LEVEL (11/21/2017 1:55 AM) Component Value Ref Range Alcohol <10 MG/DL Specimen Performing Laboratory Blood MAIN LAB [address] [place] [address] [id number] from Last 3 Months
--- OUTSIDE RECORDS SUMMARY | 2017-12-13 03:13 | XMS REPORT | Encounter Summary ---
Author Author [facility] Organization [facility] Address Unknown Phone Unavailable Care Team Providers Care Appraisal Analyst Name Role Phone No Pcp, Na PCP Unavailable Reason for Visit * Auth/Cert Status Reason Specialty Diagnoses / Referred By Referred To Procedures Contact Contact Diagnoses MDD Suicide attempt (HCC) Encounter Details Date Type Department Care Team Description 11/27/2017 Hospital Psych Adult Gabriel Stover MD Suicide attempt (HCC ) - Encounter [address] [facility] [facility] [place] [address] [address] [place] [address] [phone] Social History Tobacco Use Types Packs/Day Years Used Date Current Every Day Smoker Cigarettes 0.5 15 Smokeless Tobacco: Never Used Tobacco Cessation: Ready to Quit: No; Counseling Given: Yes Alcohol Use Drinks/Week oz/Week Comments No Sex Assigned at Date Recorded Not on file as of this encounter Last Filed Vital Signs Vital Sign Reading [...] Mass Index 25.22 11/27/2017 1:00 PM CDT in this encounter Functional Status Functional Status Response Date of Assessment Does the patient have a hearing impairment: No 11/27/2017 as of this encounter Discharge Summaries * Shavon Mckeon MD - 12/09/2017 2:55 PM CDT Formatting of this note may be different from the original. Physician Discharge Summary Name: Krunal Bertrand Date Of : 1970 Age: 47 years Admit date: 11/27/2017 Discharge date: 12/09/2017 Attending Physician: Galindo De Leon DO Service: Psych/Adult Physician Summary completed by: Shavon Mckeon MD Reason for hospitalization: Schizoaffective Disorder, Depressed Type Significant PMH: Past Medical History: Diagnosis Date DM (diabetes mellitus) (HCC) Schizoaffective disorder, depressive type (HCC) 11/21/2017 * Allergies: Keflex [cephalexin] and Erythromycin Admission Physical Exam notable for: unremarkable Admission Lab/Radiology studies notable for: Elevated liver enzymes AST 822; ALT 675 ; LDH 830; Ammonia 51; Lactic Acid 2.9; Potassium 2.8; Hg Brief Hospital Course: Mr. Bertrand was admitted on 11/21 for Tylenol Overdose. Patient has significant liver function changes, hyperammonemia and other electrolyte disturbances as well as diabetic ketoacidosis and was admitted to medicine for stabilization where he was started on NAC and given IVF and insulin in the MICU. He was discharged to inpatient psychiatry on 11/27. Patient was started on Risperidone for paranoid delusions which was titrated up to 6 mg. He tolerated it well and was switched to Long Acting Injectable Paliperidone on 12/09. Patient tolerated the injection well. While on the unit patient has variations in blood glucose. Internal Medicine was consulted for further management of his IDDM. On day of discharge, patient reported improvement of delusions, denied SI/HI or AVH. He will follow up at [facility] in [place], [place]. Patient will receive his second injection of Paliperidone within one week (156mg IM). Mother reports she will be able to watch over patient when he returns home and will manage his medications and make sure he gets to appointments. She reports all weapons are locked away in a safe and no large amount of medications will be available to him. She agrees to bring him to a hospital or call emergency services. Condition at Discharge: Stable Discharge Diagnoses: Active Problems: Schizoaffective disorder, depressive type (HCC) Suicide attempt (HCC) Surgical Procedures: None Significant Diagnostic Studies and Procedures: noted in brief hospital course Consults: Internal Medicine Patient Disposition: Home Is the patient being discharged on two or more antipsychotic medications? No Is the patient being discharged on any antipsychotic medications? Yes Body mass index is 25.22 kg/m. Wt Readings from Last 3 Encounters: 11/27/17 78.8 kg (173 lb 12.8 oz) 11/27/17 77.3 kg (170 lb 6.4 oz) BP Readings from Last 3 Encounters: 12/09/17 91/71 11/27/17 120/66 Lab Results Component Value Date CHOL 141 11/29/2017 TRIG 268 (H) 11/29/2017 HDL 29 (L) 11/29/2017 LDL 83 11/29/2017 VLDL 54 11/29/2017 NONHDLCHOL 112 11/29/2017 Hemoglobin A1C Date Value Ref Range Status 11/29/2017 9.4 (H) 4.0 - 6.0 % Final Comment: The ADA recommends that most patients with type 1 and type 2 diabetes maintain an A1c level <7%. No results found for: A1C Patient instructions/medications: Activity as Tolerated Begin to work toward your normal activity level at discharge Report These Signs and Symptoms Please contact your doctor if you have any of the following symptoms: worsening depression, thoughts to harm yourself or others. Questions About Your Stay For questions or concerns regarding your hospital stay. Call [phone] Discharging attending physician: GALINDO DE LEON [[id number]] Regular Diet You have no dietary restriction. Please continue with a healthy balanced diet. Medication List Take these medications at their scheduled times Indication ascorbic acid 500 mg tablet Dose: 500 mg Take 1 tablet by mouth daily. Commonly known as: VITAMIN C aspirin 81 mg chewable tablet Dose: 81 mg Chew 1 tablet by mouth daily. Take with food. carvedilol 6.25 mg tablet Dose: 6.25 mg Take 1 tablet by mouth twice daily with food. What changed: medication strength additional instructions Commonly known as: COREG escitalopram oxalate 10 mg tablet Dose: 10 mg Start taking on: 12/10/2017 Take 1 tablet by mouth daily. Commonly known as: LEXAPRO folic acid 1 mg tablet Dose: 1 mg Take 1 tablet by mouth daily. Commonly known as: FOLVITE insulin aspart U-100 100 unit/mL injection PEN Dose: 10 Units Inject 10 Units under the skin three times daily with meals. Commonly known as: NOVOLOG FLEXPEN insulin glargine 100 unit/mL (3 mL) injection PEN Dose: 26 Units Inject 26 Units under the skin at bedtime daily. What changed: how much to take Commonly known as: LANTUS SOLOSTAR, BASAGLAR lactobacillus rhamnosus GG 15 billion cell Cpsp capsule Dose: 1 capsule Take 1 capsule by mouth as directed twice daily with meals. Commonly known as: CULTURELLE lisinopril 5 mg tablet Dose: 5 mg Take 1 tablet by mouth daily. Commonly known as: PRINIVIL; ZESTRIL paliperidone palmitate(+) 156 mg/1 mL Syrg injection Dose: 156 mg Start taking on: 12/16/2017 Inject 1 mL into the muscle once for 1 dose. Due 12/16/17 Commonly known as: INVEGA SUSTENNA pantoprazole DR 40 mg tablet Dose: 40 mg Take 1 tablet by mouth daily. Commonly known as: PROTONIX traZODone 100 mg tablet Dose: 100 mg Take 1 tablet by mouth at bedtime daily. Commonly known as: DESYREL vitamins, B complex Tab Dose: 1 tablet Take 1 tablet by mouth daily. Take these medications as directed Indication loperamide 2 mg capsule Take 2 capsules by mouth initially, followed by 1 capsule by mouth after each loose stool up to a maximum of 8 tablets in 24 hours. Commonly known as: IMODIUM A-D Pending items needing follow up: None Signed: Shavon Mckeon MD 12/09/2017 cc: Primary Care Physician: No Pcp, Na PCP Unknown Referring physicians: Additional provider(s): [facility] Facility/Provider in this encounter Discharge Instructions * Discharge Instr - Case Management - Brianda Alonso - 11/28/2017 9:45 AM CDT Case Management Discharge Instructions: Resume care at [facility], phone: , with your medication provider, Katty Grover APRN. Appointment Information: Next appointment: Katty Grover APRN on 12/11/17 @ 11:20 p.m. Other Follow Up Information: National Suicide Prevention Lifeline: . We can all help prevent suicide. The Lifeline provides 20/01, free and confidential support for people in distress, prevention and crisis resources for you or your loved ones, and best practices for professionals. [facility] [address] [facility] 01/05/18 with MACIEJ Nevarez, for diabetes Other Follow Up Information: National Suicide Prevention Lifeline: . We can all help prevent suicide. The Lifeline provides 20/01, free and confidential support for people in distress, prevention and crisis resources for you or your loved ones, and best practices for professionals. in this encounter Medications at Time of Discharge Medication Sig. Disp. Refills Start Date End Date ascorbic acid (VITAMIN C) Take 1 tablet by mouth 11/27/2017 500 mg tablet daily. aspirin 81 mg chewable Chew 1 tablet by mouth 11/27/2017 tablet daily. Take with food. carvedilol (COREG) 6.25 Take 1 tablet by mouth 60 tablet 1 12/09/2017 mg tablet twice daily with food. escitalopram oxalate Take 1 tablet by mouth 30 tablet 0 12/10/2017 (LEXAPRO) 10 mg tablet daily. folic acid (FOLVITE) 1 mg Take 1 tablet by mouth 30 tablet 2 2017 tablet daily. insulin aspart U-100 Inject 10 Units under the 45 mL 3 12/09/2017 (NOVOLOG FLEXPEN) 100 skin three times daily unit/mL injection PEN with meals. insulin glargine (LANTUS Inject 26 Units under the 45 mL 3 12/09/2017 SOLOSTAR, BASAGLAR) 100 skin at bedtime daily. unit/mL (3 mL) injection PEN lactobacillus rhamnosus Take 1 capsule by mouth 90 capsule 3 2017 GG (CULTURELLE) 15 as directed twice daily billion cell cpSP capsule with meals. lisinopril (PRINIVIL; Take 1 tablet by mouth 30 tablet 1 12/09/2017 ZESTRIL) 5 mg tablet daily. loperamide (IMODIUM A-D) Take 2 capsules by mouth 30 capsule 0 2017 2 mg capsule initially, followed by 1 capsule by mouth after each loose stool up to a maximum of 8 tablets in 24 hours. paliperidone palmitate(+) Inject 1 mL into the 1 mL 0 12/16/2017 (INVEGA SUSTENNA) 156 muscle once for 1 dose. mg/1 mL syrg injection Due 12/16/[address] Take 1 tablet by mouth 30 tablet 1 12/09/2017 (PROTONIX) 40 mg tablet daily. traZODone (DESYREL) 100 Take 1 tablet by mouth at 30 tablet 0 2017 mg tablet bedtime daily. vitamins, B complex tab Take 1 tablet by mouth 11/27/2017 daily. as of this encounter Progress Notes * Estrellita Garcia RN - 12/09/2017 3:28 PM CDT Psychiatry Insurance Review Insurance Company: [facility] Insurance/Medicaid ID #: [id number] Reference /Authorization # [id number] security services specialist Ron[place], completed DC form and medication list faxed to [phone] d/c on 12/09.LCD 12/08 * Kisha Lara APRN-NP - 12/09/2017 3:28 PM CDT Formatting of this note may be different from the original. General Consult Progress Note Admission Date: 11/27/2017 LOS: 12 Active Problems: Schizoaffective disorder, depressive type (HCC) Suicide attempt (HCC) Reason for Consult: Diabetes management ( uncontrolled blood glucose levels) Consult type: Opinion with orders Mr. Bertrand is a 47-year-old male with history of depression, paranoid delusion, schizophrenia, diabetes mellitus type 1 that is uncontrolled Diabetes mellitus type 1 with recent admission for diabetic ketoacidosis -Diabetic since he was 22 years old. Has always been on insulin. -Hemoglobin A1c of 9.4 on 11/29/2017. - Currently on Lantus insulin of 26 units, mealtime insulin 10 units 3 times daily, and correction factor insulin - Fasting blood sugar 85 (12/08) 272 (12/09- elevated due to snacking) - Blood sugar post meal elevated - Noted patient was on a 4850-6209 Diabetic diet ( which may be too much for his current size). - Changes diet to 5913-8189 (12/08) Recent history of acute liver injury due to acetaminophen overdose-admitted between 11/21/2017 to 11/27/2017 Recent acute pancreatitiscurrently with no pain tolerating diet Recent history of sepsis related to pneumococcal pneumonia: Finished 7 day course of antibiotics Recent acute systolic and diastolic congestive heart failure: Continue on cardiac meds Improved acute kidney injuryis current creatinine of 0.76 Schizophrenia/paranoid delusions/depression Suicidal ideation - Management per Psych. Recommendation: - Continue Diabetic diet to 7068-3526 - Resume ORTHOPEDIC CAST SPECIALIST regimen at discharge. Patient discussed with Dr. Collins Thank you for the consult, we will continue to follow. Please direct initial questions to primary team Medicine Consult team can be reached at pager [phone] Kisha Lara APRN Internal Medicine Consults Subjective Krunal Bertrand is a 47 y.o. male No acute events overnight. Blood sugars elevated late evening and this morning. Pt reports eating chip with no correction factor insulin. Denies nausea, vomiting, abdominal pain or diarrhea. Denies [place], chest pain, shortness of air and dysuria. Medications Scheduled Meds: ascorbic acid (VITAMIN C) tablet 500 mg 500 mg Oral QDAY aspirin chewable tablet 81 mg 81 mg Oral QDAY carvedilol (COREG) tablet 6.25 mg 6.25 mg Oral BID escitalopram oxalate (LEXAPRO) tablet 10 mg 10 mg Oral QDAY folic acid (FOLVITE) tablet 1 mg 1 mg Oral QDAY insulin aspart U-100 (NOVOLOG FLEXPEN) injection PEN 0-14 Units 0-14 Units Subcutaneous TID w/ meals insulin aspart U-100 (NOVOLOG FLEXPEN) injection PEN 10 Units 10 Units Subcutaneous TID w/ meals insulin glargine (LANTUS SOLOSTAR, BASAGLAR) injection PEN 26 Units 26 Units Subcutaneous QHS lactobacillus rhamnosus GG (CULTURELLE) 15 billion cell capsule 1 capsule 1 capsule Oral BID w/meals lisinopril (PRINIVIL; ZESTRIL) tablet 5 mg 5 mg Oral QDAY pantoprazole DR (PROTONIX) tablet 40 mg 40 mg Oral QDAY traZODone (DESYREL) tablet 100 mg 100 mg Oral QHS vitamins, B complex tablet 1 tablet 1 tablet Oral QDAY Continuous Infusions: PRN and Respiratory Meds:ibuprofen Q6H PRN, loperamide QID PRN, OLANZapine Q6H PRN Objective Vital Signs: Last Filed Vital Signs: 24 Hour Range BP: 91/71 (12/09 0800) Temp: 36.7 C (98.1 F) (12/09 0800) Pulse: 71 (12/09 0800) Respirations: 18 PER MINUTE (12/09 0800) SpO2: 97 % (12/09 0800) BP: (91-98)/(69-71) Temp: [36.7 C (98.1 F)] Pulse: [71-76] Respirations: [18 PER MINUTE] SpO2: [97 %] Vitals: 11/27/17 1200 11/27/17 1300 Weight: 78.8 kg (173 lb 12.8 oz) 78.8 kg (173 lb 12.8 oz) Intake/Output Summary: (Last 24 hours) No intake or output data in the 24 hours ending 12/09/17 1711 Physical Exam General appearance: alert, cooperative and no distress Head: Normocephalic, without obvious abnormality, atraumatic Eyes: conjunctivae/corneas clear. PERRL, EOM's intact. Lungs: clear to auscultation bilaterally Heart: regular rate, S1, S2 normal, no murmur, click, rub or gallop Abdomen: soft, non-tender. Bowel sounds normal. No masses, no organomegaly Extremities: extremities normal, atraumatic, no cyanosis or edema Neurologic: Grossly normal Skin: Skin color, texture, turgor normal. No rashes or lesions Lab Review 24-hour labs: Results for orders placed or performed during the hospital encounter of (from the past 24 hour(s)) POC GLUCOSE Collection Time: 12/08/17 7:53 PM Result Value Ref Range Glucose, POC 258 (H) 70 - 100 MG/DL POC GLUCOSE Collection Time: 12/09/17 7:37 AM Result Value Ref Range Glucose, POC 272 (H) 70 - 100 MG/DL POC GLUCOSE Collection Time: 12/09/17 12:12 PM Result Value Ref Range Glucose, POC 132 (H) 70 - 100 MG/DL Point of Care Testing (Last 24 hours) POC Glucose (Download): (!) 132 (12/09/17 1212) Radiology and other Diagnostics Review: No pertinent radiology. Kisha Lara APRN-YOVANY Associated attestation - Len Collins MD - 12/09/2017 6:26 PM CDT Formatting of this note may be different from the original. ATTESTATION I personally interviewed and examined the patient. I have reviewed the history , physical, impression and plan outlined by the Nurse Practitioner. Name: Krunal Bertrand Today's Date: 12/09/2017 Admission Date: 11/27/2017 LOS: 12 days Assessment/Plan: Active Problems: Schizoaffective disorder, depressive type (HCC) Suicide attempt (HCC) Although his blood sugar history of moderately elevated overnight, he should be okay to resume his ORTHOPEDIC CAST SPECIALIST regimen discharge, with instructions to follow-up as an outpatient with dose adjustment and dietary follow-up will defer to the primary team on the management of his depressive symptoms and suicidal ideation. We will sign off. Thank you for the opportunity to participate in this gentlemen' s care Subjective Krunal Bertrand reports no acute overnight events. No fever or chills overnight. Pain improving. Denies cough or chest pain. Bowels moving. Appetite good. Objective Blood pressure 91/71, pulse 71, temperature 36.7 C (98.1 F), height 176.8 cm (69.61"), weight 78.8 kg (173 lb 12.8 oz), SpO2 97 %. Physical Exam Gen: A&O, in NAD HEENT: mmm, op clear, nonicteric Neck: supple, no jvdAlthough his blood sugar history of moderately elevated overnight, he should be okay to resume his ORTHOPEDIC CAST SPECIALIST regimen discharge, with instructions to follow-up as an outpatient with dose adjustment and dietary follow-up will defer to the primary team on the management of his depressive symptoms and suicidal ideation. We will sign off. Thank you for the opportunity to participate in this gentlemen's care CV: rrr without m/r/g Resp: CTA bilaterally Abd: soft/nt/nd/+bs Ext: no c/c/e Lab Review Lab Results Component Value Date/Time HGB 11.4 (L) 11/27/2017 04:35 AM WBC 10.0 11/27/2017 04:35 AM PLTCT 288 11/27/2017 04:35 AM BUN 3 (L) 11/27/2017 04:35 AM NA 142 11/27/2017 04:35 AM K 3.5 11/27/2017 04:35 AM CR 0.76 11/27/2017 04:35 AM Point of Care Testing (Last 24 hours) POC Glucose (Download): (!) 132 (12/09/17 1212) Radiology and other Diagnostics have been Reviewed as indicated. Staff name: Len Collins MD * Nolan Irvin RN - 12/09/2017 3:28 PM CDT Patient received his matamoros and disability check from the [employer]. Patient count all the money in front of this RN. No discrepancies reported. Patient escorted to his ride in stable condition * Chelle Coffey RN - 12/09/2017 3:22 PM CDT Discharge Note: Condition Patient's mood and thought contents have improved and are appropriate for discharge. Disposition Patient is leaving with transportation services to return home. He will be escorted to the [facility] and the front office to reclaim his two envelopes in the safe. All items from room, belonging bin, medication room, and safe are returned to the patients. Discharge Instructions Discharge instructions and psychiatry summary of care were discussed and provided. A copy will be transmitted to the next level of care provider within 24 hours after discharge. Patient expresses understanding. * Shavon Mckeon MD - 12/09/2017 2:05 PM CDT Formatting of this note may be different from the original. Psychiatric Progress Note LOS: 12 days Voluntary/Involuntary Status: Voluntary Guardian? None MEDICATIONS Current Psychotropic Medications: 1. Paliperidone 234mg IM on 12/09 2. Trazodone 100mg QHS PRN 3. Olanzapine 2.5mg Q6H PRN ASSESSMENT AND DIAGNOSES 47yo M with hx of paranoid delusions and depression who presented to with SI. Patient has improved on Risperidone and was switched over to Long Acting Injectable, Paliperidone. Tolerated this medication well. He will go home today. Follow up will be at [facility], he will get his second Paliperidone injection of 156mg IM within one week. 1. Schizoaffective Disorder, Depressed Type PLAN: -Continue lexapro 10mg PO QD for mood - Paliperidone injection 234mg IM today; follow up in 1 week for 156mg IM - Patient with changes to insulin regimen and antihypertensives -Follow up at [facility] after discharge. -Appreciate assistance with Medicaid transport Disposition: Discharge home today Seen and discussed with Dr. De Leon SUBJECTIVE Mr. Bertrand reports feeling "good" today. He reports he is not currently having thoughts to hurt himself. Denies HI/AVH. He feels comfortable going home today. He has been to [facility] in the past and plans to follow up there now for his second Paliperidone injection. REVIEW OF SYSTEMS 1. Psychiatric: denies suicidal ideations 2. Neuro: negative for headache OBJECTIVE Vital Signs: Current Vital Signs: 24 Hour Range BP: 91/71 (12/10 799) Temp: 36.7 C (98.1 F) (12/10 0700) Pulse: 71 (12/10 0700) Respirations: 18 PER MINUTE (12/10 799) SpO2: 97 % (12/10 799) BP: (91-98)/(69-71) Temp: [36.7 C (98.1 F)] Pulse: [71-76] Respirations: [18 PER MINUTE] SpO2: [97 %] Intensity Pain Scale 0-10 (Pain 1): (not recorded) Scheduled Medications: ascorbic acid (VITAMIN C) tablet 500 mg 500 mg Oral QDAY aspirin chewable tablet 81 mg 81 mg Oral QDAY carvedilol (COREG) tablet 6.25 mg 6.25 mg Oral BID escitalopram oxalate (LEXAPRO) tablet 10 mg 10 mg Oral QDAY folic acid (FOLVITE) tablet 1 mg 1 mg Oral QDAY insulin aspart U-100 (NOVOLOG FLEXPEN) injection PEN 0-14 Units 0-14 Units Subcutaneous TID w/ meals insulin aspart U-100 (NOVOLOG FLEXPEN) injection PEN 10 Units 10 Units Subcutaneous TID w/ meals insulin glargine (LANTUS SOLOSTAR, BASAGLAR) injection PEN 26 Units 26 Units Subcutaneous QHS lactobacillus rhamnosus GG (CULTURELLE) 15 billion cell capsule 1 capsule 1 capsule Oral BID w/meals lisinopril (PRINIVIL; ZESTRIL) tablet 5 mg 5 mg Oral QDAY pantoprazole DR (PROTONIX) tablet 40 mg 40 mg Oral QDAY traZODone (DESYREL) tablet 100 mg 100 mg Oral QHS vitamins, B complex tablet 1 tablet 1 tablet Oral QDAY PRN Medications: ibuprofen Q6H PRN, loperamide QID PRN 2 mg at 12/04/17 0859, OLANZapine Q6H PRN Mental Status Exam_ General/Constitutional: WM, appears stated age, NAD Eye Contact: Fair Behavior: No PMA/PMR Speech: Normal rate and tone Mood: "Better" Affect: Mood congruent Thought Process: Linear and goal directed Thought Content: Passive SI, no HI Perception: Denies AVH Associations: No loose associations Insight: Good Judgement: Good Gait: Normal gait Shavon Mckeon MD * Chelle Coffey, RN - 12/09/2017 1:36 PM CDT Chart check complete * Jena Ramsey OT - 12/09/2017 9:00 AM CDT OCCUPATIONAL THERAPY ADULT PSYCH DAILY TREATMENT NOTE NAME:Krunal Bertrand :1970 AGE: 47 y.o. ADMISSION DATE: 11/27/2017 DAYS ADMITTED: LOS: 12 days Date of Service: 12/09/17 Patient seen x1 this date. Documentation reflects all daily treatment sessions. Pt seen in 0900 OT group on: Self Management Affect: Restricted Eye Contact: fair Interaction: Minimal Activity Level: Low energy level Was present approximately 30 minutes total Concentration: Fair attention span Comments: Little active engagement Little or no investment Plan: OT 5x/week for self management Recommend: continued education in symptom management and community based resources Therapist: Jena Ramsey, OT Date: 12/09/2017 * Kamar Aly, ELICEO - 12/08/2017 8:07 PM CDT Chart check completed. * Kisha Lara APRN-NP - 12/08/2017 5:03 PM CDT Formatting of this note may be different from the original. General Consult Progress Note Admission Date: 11/27/2017 LOS: 11 Active Problems: Schizoaffective disorder, depressive type (HCC) Suicide attempt (HCC) Reason for Consult: Diabetes management ( uncontrolled blood glucose levels) Consult type: Opinion with orders Mr. Bertrand is a 47-year-old male with history of depression, paranoid delusion, schizophrenia, diabetes mellitus type 1 that is uncontrolled Diabetes mellitus type 1 with recent admission for diabetic ketoacidosis -Diabetic since he was 22 years old. Has always been on insulin. -Hemoglobin A1c of 9.4 on 11/29/2017. - Currently on Lantus insulin of 26 units, mealtime insulin 10 units 3 times daily, and correction factor insulin - Fasting blood sugar 85 - Blood sugar post meal elevated - Noted patient was on a 3639-6570 Diabetic diet ( which may be too much for his current size). Recent history of acute liver injury due to acetaminophen overdose-admitted between 11/21/2017 to 11/27/2017 Recent acute pancreatitiscurrently with no pain tolerating diet Recent history of sepsis related to pneumococcal pneumonia: Finished 7 day course of antibiotics Recent acute systolic and diastolic congestive heart failure: Continue on cardiac meds Improved acute kidney injuryis current creatinine of 0.76 Schizophrenia/paranoid delusions/depression Suicidal ideation - Management per Psych. Recommendation: - Change diet to Diabetic diet to 8631-1645 ( ordered) - As hisblood glucose at 8 AM was 85, Continue Current Insulin management plan - Continue to monitor before meals at bedtime Patient seen and discussed with Dr. Collins Thank you for the consult, we will continue to follow. Please direct initial questions to primary team Medicine Consult team can be reached at pager [phone] Kisha Lara APRN Internal Medicine Consults Subjective Krunal Bertrand is a 47 y.o. male No acute events overnight. Patient reports nausea after his morning meal. Denies Vomiting, abdominal pain or diarrhea. Denies [place], chest pain, shortness of air and dysuria. Medications Scheduled Meds: ascorbic acid (VITAMIN C) tablet 500 mg 500 mg Oral QDAY aspirin chewable tablet 81 mg 81 mg Oral QDAY carvedilol (COREG) tablet 6.25 mg 6.25 mg Oral BID escitalopram oxalate (LEXAPRO) tablet 10 mg 10 mg Oral QDAY folic acid (FOLVITE) tablet 1 mg 1 mg Oral QDAY insulin aspart U-100 (NOVOLOG FLEXPEN) injection PEN 0-14 Units 0-14 Units Subcutaneous TID w/ meals insulin aspart U-100 (NOVOLOG FLEXPEN) injection PEN 10 Units 10 Units Subcutaneous TID w/ meals insulin glargine (LANTUS SOLOSTAR, BASAGLAR) injection PEN 26 Units 26 Units Subcutaneous QHS lactobacillus rhamnosus GG (CULTURELLE) 15 billion cell capsule 1 capsule 1 capsule Oral BID w/meals lisinopril (PRINIVIL; ZESTRIL) tablet 5 mg 5 mg Oral QDAY paliperidone palmitate(+) (INVEGA) injection 234 mg 234 mg Intramuscular ONCE pantoprazole DR (PROTONIX) tablet 40 mg 40 mg Oral QDAY traZODone (DESYREL) tablet 100 mg 100 mg Oral QHS vitamins, B complex tablet 1 tablet 1 tablet Oral QDAY Continuous Infusions: PRN and Respiratory Meds:ibuprofen Q6H PRN, loperamide QID PRN, OLANZapine Q6H PRN Objective Vital Signs: Last Filed Vital Signs: 24 Hour Range BP: 129/74 (12/09 799) Temp: 36.7 C (98.1 F) (12/09 799) Pulse: 95 (12/09 799) Respirations: 20 PER MINUTE (12/09 799) SpO2: 98 % (12/09 799) O2 Delivery: None (Room Air) (12/09 799) BP: (107-129)/(70-74) Temp: [36.7 C (98.1 F)] Pulse: [85-95] Respirations: [18 PER MINUTE-20 PER MINUTE] SpO2: [98 %] O2 Delivery: None (Room Air) Vitals: 11/27/17 1200 11/27/17 1300 Weight: 78.8 kg (173 lb 12.8 oz) 78.8 kg (173 lb 12.8 oz) Intake/Output Summary: (Last 24 hours) No intake or output data in the 24 hours ending 12/08/17 1703 Physical Exam General appearance: alert, cooperative and no distress Head: Normocephalic, without obvious abnormality, atraumatic Eyes: conjunctivae/corneas clear. PERRL, EOM's intact. Lungs: clear to auscultation bilaterally Heart: regular rate, S1, S2 normal, no murmur, click, rub or gallop Abdomen: soft, non-tender. Bowel sounds normal. No masses, no organomegaly Extremities: extremities normal, atraumatic, no cyanosis or edema Neurologic: Grossly normal Skin: Skin color, texture, turgor normal. No rashes or lesions Lab Review 24-hour labs: Results for orders placed or performed during the hospital encounter of (from the past 24 hour(s)) POC GLUCOSE Collection Time: 12/07/17 7:45 PM Result Value Ref Range Glucose, POC 187 (H) 70 - 100 MG/DL POC GLUCOSE Collection Time: 12/08/17 7:30 AM Result Value Ref Range Glucose, POC 85 70 - 100 MG/DL POC GLUCOSE Collection Time: 12/08/17 11:50 AM Result Value Ref Range Glucose, POC 193 (H) 70 - 100 MG/DL POC GLUCOSE Collection Time: 12/08/17 4:53 PM Result Value Ref Range Glucose, POC 155 (H) 70 - 100 MG/DL Point of Care Testing (Last 24 hours) POC Glucose (Download): (!) 155 (12/08/17 0434) Radiology and other Diagnostics Review: No pertinent radiology. Kisha Lara APRN-YOVANY Associated attestation - Len Collins MD - 12/08/2017 10:45 PM CDT Formatting of this note may be different from the original. ATTESTATION I personally interviewed and examined the patient. I have reviewed the history , physical, impression and plan outlined by the Nurse Practitioner. Name: Krunal Bertrand Today's Date: 12/08/2017 Admission Date: 11/27/2017 LOS: 11 days Assessment/Plan: Active Problems: Schizoaffective disorder, depressive type (HCC) Suicide attempt (HCC) The current regimen seems to be fairly effective at controlling his blood sugar. However, he probably has too high a caloric intake at this time. I would recommend lowering his diet to go to 8014-1519 cece and continuing the current insulin regimen. We will continue to monitor with you. Subjective Krunal Bertrand is a 47 y.o. gentleman with a history of uncontrolled type 1 diabetes mellitus, depression, paranoid delusion, and schizophrenia currently admitted to the psychiatric unit for suicidal ideation and DKA. He has some mild abdominal discomfort today, but has no diarrhea or loose stools. He has no nausea or emesis Objective Blood pressure 98/69, pulse 76, temperature 36.7 C (98.1 F), height 176.8 cm (69.61"), weight 78.8 kg (173 lb 12.8 oz), SpO2 98 %. Physical Exam Gen: A&O, in NAD HEENT: mmm, op clear, nonicteric Neck: supple, no jvd CV: rrr without m/r/g Resp: CTA bilaterally Abd: soft/nt/nd/+bs Ext: no c/c/e Lab Review Lab Results Component Value Date/Time HGB 11.4 (L) 11/27/2017 04:35 AM WBC 10.0 11/27/2017 04:35 AM PLTCT 288 11/27/2017 04:35 AM BUN 3 (L) 11/27/2017 04:35 AM NA 142 11/27/2017 04:35 AM K 3.5 11/27/2017 04:35 AM CR 0.76 11/27/2017 04:35 AM Point of Care Testing (Last 24 hours) POC Glucose (Download): (!) 258 (12/08/171952) Radiology and other Diagnostics Review: No pertinent radiology. Staff name: Len Collins MD * Poornima Correa - 12/08/2017 4:14 PM CDT OCCUPATIONAL THERAPY REC THERAPY DAILY NOTE Daily Note Patient seen x2 this date. Documentation reflects all daily treatment sessions. Pt attended activity/group: Yes Pt participated: Fully Pt's interactions: Eye contact when spoken to and Pt in group but did not interact with others unless necessary during the game. Activity was: Games with music listening Plan: Continue to attend therapeutic recreation group as possible. Therapist: Poornima Correa, AUTOMATIC MAINTAINER Date: 12/08/2017 * Najma Lanza - 12/08/2017 4:07 PM CDT A medication education group was performed today, and Krunal Bertrand attended the entire time of the group. Pt did participate in group. Patient had a good understanding of material in group. Common psychiatric medications were reviewed for indications, side effects, and onset of effect. Methods for medication adherence were addressed with group. Blank medication lists were handed out in group. He was open to answering questions and shared he stopped taking his medication in the past due to them making him sick. Patient had particular questions regarding:when he would be receiving his long acting injection medication. Will discuss with team in rounds. Provider: Najma Lanza Automatic Die Cutting Machine Operator * Estrellita Garcia RN - 12/08/2017 1:34 PM CDT Psychiatry Insurance Review Insurance Company: [facility] Insurance/Medicaid ID #: [id number] Reference /Authorization # [id number] security services specialist Ronn, completed live concurrent review Approved 1 additional day, 12/08 Expect d/c on 12/09. Next review on 12/09/17 with Ronn [phone] * Shavon Mckeon MD - 12/08/2017 11:21 AM CDT Formatting of this note may be different from the original. Psychiatric Progress Note LOS: 11 days Voluntary/Involuntary Status: Voluntary Guardian? None MEDICATIONS Current Psychotropic Medications: 1. Risperidone 6mg qHS 2. Trazodone 100mg QHS PRN 3. Olanzapine 2.5mg Q6H PRN ASSESSMENT AND DIAGNOSES 47yo M with hx of paranoid delusions and depression who presented to with SI. Pt with ongoing thoughts of suicide, does not endorse plan or paranoid thoughts or delusions. Will continue to monitor for safety. Provisional: 1. Schizophrenia 2. R/o Delusional Disorder PLAN: -Continue lexapro 10mg PO QD for mood -Initiate Paliperidone injection 234mg IM today -Discontinue risperidone 6mg qhs -Continue prn trazodone/zyprexa -Internal medicine following for DM management with recs -LFTs wnl 12/07/17 -Follow up at [facility] after discharge. -DM: [facility] and Glargine Disposition: Discharge tomorrow. Seen and discussed with Dr. De Leon SUBJECTIVE Mr. Bertrand reports feeling "a little better" today. He reports passive SI today , but thinks he would be safe to go home with him mother. Denies HI or AVH. REVIEW OF SYSTEMS 1. Psychiatric: positive for passive suicidal ideations 2. Neuro: negative for headache OBJECTIVE Vital Signs: Current Vital Signs: 24 Hour Range BP: 129/74 (12/09 799) Temp: 36.7 C (98.1 F) (12/09 799) Pulse: 95 (12/09 799) Respirations: 20 PER MINUTE (12/09 799) SpO2: 98 % (12/09 799) O2 Delivery: None (Room Air) (12/09 799) BP: (107-129)/(70-74) Temp: [36.7 C (98.1 F)] Pulse: [85-95] Respirations: [18 PER MINUTE-20 PER MINUTE] SpO2: [98 %] O2 Delivery: None (Room Air) Intensity Pain Scale 0-10 (Pain 1): (not recorded) Scheduled Medications: ascorbic acid (VITAMIN C) tablet 500 mg 500 mg Oral QDAY aspirin chewable tablet 81 mg 81 mg Oral QDAY carvedilol (COREG) tablet 6.25 mg 6.25 mg Oral BID escitalopram oxalate (LEXAPRO) tablet 10 mg 10 mg Oral QDAY folic acid (FOLVITE) tablet 1 mg 1 mg Oral QDAY insulin aspart U-100 (NOVOLOG FLEXPEN) injection PEN 0-14 Units 0-14 Units Subcutaneous TID w/ meals insulin aspart U-100 (NOVOLOG FLEXPEN) injection PEN 12 Units 12 Units Subcutaneous TID w/ meals insulin glargine (LANTUS SOLOSTAR, BASAGLAR) injection PEN 26 Units 26 Units Subcutaneous QHS lactobacillus rhamnosus GG (CULTURELLE) 15 billion cell capsule 1 capsule 1 capsule Oral BID w/meals lisinopril (PRINIVIL; ZESTRIL) tablet 5 mg 5 mg Oral QDAY paliperidone palmitate(+) (INVEGA) injection 234 mg 234 mg Intramuscular ONCE pantoprazole DR (PROTONIX) tablet 40 mg 40 mg Oral QDAY traZODone (DESYREL) tablet 100 mg 100 mg Oral QHS vitamins, B complex tablet 1 tablet 1 tablet Oral QDAY PRN Medications: ibuprofen Q6H PRN, loperamide QID PRN 2 mg at 12/04/17 0859, OLANZapine Q6H PRN Mental Status Exam_ General/Constitutional: WM, appears stated age, NAD Eye Contact: Fair Behavior: No PMA/PMR Speech: Normal rate and tone Mood: "A little better" Affect: Mood congruent Thought Process: Linear and goal directed Thought Content: Passive SI, no HI Perception: Denies AVH Associations: No loose associations Insight: Good Judgement: Good Gait: Normal gait Shavon Mckeon MD Associated attestation - Galindo De Leon DO - 12/08/2017 1:05 PM CDT Formatting of this note may be different from the original. ATTESTATION I personally performed the healy portions of the E/M visit, discussed case with resident and concur with resident documentation of history, physical exam, assessment, and treatment plan unless otherwise noted. Staff name: Galindo De Leon DO Date: 12/08/2017 * Maggy Drew - 12/08/2017 10:41 AM CDT The patient is rescheduled for follow-up on 12/11/17@ 11:20pm, at [facility], contact # [phone] * Maggy Drew - 12/08/2017 10:01 AM CDT This patient has a follow-up scheduled on 12/09/17 at [facility] @ 11:40am with Katty Hutchison, contact with any questions or concerns. * Carin Daily PHARMD - 12/08/2017 9:20 AM CDT Pharmacy Long-Acting Injectable Psychotropic Medication Note For patient Krunal Bertrand ( ), a non-formulary medication request was received for Invega Sustenna. This medication is requested as a new medication initiation. New Medication Initiation Outpatient coverage verification: Yes History of non-compliance or lack of adherence to oral therapy: Yes Future outpatient administration of this medication will occur as follows: Outpatient Location: [facility] Next Administration Date: within 1 week - 156 mg Carin Daily PHARMD Clinical Pharmacist 12/08/2017 * Jena Ramsey OT - 12/08/2017 9:00 AM CDT OCCUPATIONAL THERAPY ADULT PSYCH DAILY TREATMENT NOTE NAME:Krunal Bertrand :1970 AGE: 47 y.o. ADMISSION DATE: 11/27/2017 DAYS ADMITTED: LOS: 11 days Date of Service: 12/08/17 Patient seen x1 this date. Documentation reflects all daily treatment sessions. Pt seen in 0900 OT group on: Self Awareness Self Expression Affect: Restricted and Unremarkable Eye Contact: fair Interaction: Minimal Activity Level: Left group early Was present approximately 10 minutes total Concentration: Difficult to assess due to limited interaction Comments: Appeared indifferent Little or no investment Plan: OT 5x/week for self management Recommend: continued education in symptom management and community based resources Therapist: Jena Ramsey OT Date: 12/08/2017 * Chelle Coffey, RN - 12/08/2017 7:52 AM CDT Chart check complete * Kamar Aly RN - 12/07/2017 7:21 PM CDT Chart check completed. * Archana Monae MD - 12/07/2017 2:31 PM CDT Formatting of this note may be different from the original. Psychiatric Progress Note LOS: 10 days Voluntary/Involuntary Status: Voluntary Guardian? None MEDICATIONS Current Psychotropic Medications: 1. Risperidone 6mg qHS 2. Trazodone 100mg QHS PRN 3. Olanzapine 2.5mg Q6H PRN ASSESSMENT AND DIAGNOSES 47yo M with hx of paranoid delusions and depression who presented to with SI. Pt with ongoing thoughts of suicide, does not endorse plan or paranoid thoughts or delusions. Will continue to monitor for safety. Provisional: 1. Schizophrenia 2. R/o Delusional Disorder PLAN: -Start lexapro 10mg PO QD for mood -Continue risperidone 6mg qhs and prn trazodone/zyprexa -Internal medicine following for DM management with recs -LFTs wnl 12/07/17 -DM: [facility] and Glargine Disposition: continue admission to inpatient psychiatry Seen and discussed with Dr. Cordero. SUBJECTIVE Patient reports his mood is "depressed". He reports not being able to feel safe "outside of the hospital". He reports thoughts of suicide as "I just don't want to be here." He denies any intent or plan while in the hospital. Denies HI or AVH. REVIEW OF SYSTEMS 1. Psychiatric: positive for suicidal ideations 2. Neuro: negative for headache OBJECTIVE Vital Signs: Current Vital Signs: 24 Hour Range BP: 112/79 (12/08 799) Temp: 36.7 C (98.1 F) (12/08 799) Pulse: 85 (12/08 799) Respirations: 18 PER MINUTE (12/08 799) SpO2: 98 % (12/08 799) BP: (106-112)/(66-79) Temp: [36.7 C (98.1 F)] Pulse: [85-89] Respirations: [18 PER MINUTE] SpO2: [98 %] Intensity Pain Scale 0-10 (Pain 1): (not recorded) Scheduled Medications: ascorbic acid (VITAMIN C) tablet 500 mg 500 mg Oral QDAY aspirin chewable tablet 81 mg 81 mg Oral QDAY carvedilol (COREG) tablet 6.25 mg 6.25 mg Oral BID escitalopram oxalate (LEXAPRO) tablet 10 mg 10 mg Oral QDAY folic acid (FOLVITE) tablet 1 mg 1 mg Oral QDAY insulin aspart U-100 (NOVOLOG FLEXPEN) injection PEN 0-14 Units 0-14 Units Subcutaneous TID w/ meals insulin aspart U-100 (NOVOLOG FLEXPEN) injection PEN 12 Units 12 Units Subcutaneous TID w/ meals insulin glargine (LANTUS SOLOSTAR, BASAGLAR) injection PEN 26 Units 26 Units Subcutaneous QHS lactobacillus rhamnosus GG (CULTURELLE) 15 billion cell capsule 1 capsule 1 capsule Oral BID w/meals lisinopril (PRINIVIL; ZESTRIL) tablet 5 mg [address] (PROTONIX) tablet 40 mg 40 mg Oral QDAY risperiDONE (RISPERDAL) tablet 6 mg 6 mg Oral QHS traZODone (DESYREL) tablet 100 mg 100 mg Oral QHS vitamins, B complex tablet 1 tablet 1 tablet Oral QDAY PRN Medications: ibuprofen Q6H PRN, loperamide QID PRN 2 mg at 12/04/17 0859, OLANZapine Q6H PRN Mental Status Exam: General/Constitutional: Pt appears stated age, with fair hygiene, and in no acute distress, has blanket wrapped over his shoulders Eye Contact: good Behavior: calm, cooperaitve Speech: normal rate, depressed tone, low volume Mood: "depressed" Affect: dysthymic, mood congruent Thought Process: linear and goal oriented Thought Content: endorses SI, no plan, denies HI Perception: denies auditory or visual hallucinations. No evidence of delusions. Associations: intact Insight: limited Judgment: limited Orientation: AAOX4 Recent and remote memory: intact per interview Attention span and concentration: intact per interview Cognition: intact Language: Czech Fund of knowledge/vocabulary: full Focused Physical Exam: Musculoskeletal: moves all extremities spontanously Neuro: no tremor, no focal deficits Archana Monae MD Associated attestation - Sonam Cordero DO - 12/07/2017 8:33 PM CDT Formatting of this note may be different from the original. ATTESTATION I personally performed the healy portions of the E/M visit, discussed the case with the resident and concur with resident documentation of history, physical exam, assessment, and treatment plan unless otherwise noted. I personally participated in development of the plan of care. Please feel free to contact us with any additional questions or concerns by paging the consult team between 8am and 5pm on weekdays and between 8am and 3pm on weekends [phone]. Otherwise, page the resident services coordinator mill controller. Staff name: Sonam Cordero DO Date: 12/07/2017 * Kip Shin MD - 12/07/2017 1:38 PM CDT Formatting of this note may be different from the original. General Progress Note Admission Date: 11/27/2017 LOS: 10 days Assessment/Plan: Active Problems: Suicide attempt (HCC) Mr. Bertrand is a 47-year-old male with history of depression, paranoid delusion, schizophrenia, diabetes mellitus type 1 that is uncontrolled Diabetes mellitus type 1 with recent admission for diabetic ketoacidosis: Diabetic since he was 22 years old. Has always been on insulin. Hemoglobin A1c of 9.4 on 11/29/2017. Currently on Lantus insulin of 26 units, mealtime insulin 10 units 3 times daily, and correction factor insulin -blood glucose of 112 at 749 this am, and still yuliet 246 at noon Recent history of acute liver injury due to acetaminophen overdose-admitted between 11/21/2017 to 11/27/2017 Recent acute pancreatitis currently with no pain tolerating diet Recent history of sepsis related to pneumococcal pneumonia: Finished 7 day course of antibiotics Recent acute systolic and diastolic congestive heart failure: Continue on cardiac meds Improved acute kidney injury is current creatinine of 0.76 Schizophrenia/paranoid delusions/depression Suicidal ideation Recommendation: Would recommend increasing mealtime insulin to 15 units 3 times daily with meals As his blood glucose at 8 AM was 112 will recommend keeping Lantus insulin at 26 units for now. Continue to monitor before meals at bedtime Thank you for the consult. Will continue to follow . Note: All patient care calls should be directed first to the primary service. If the primary service needs further assistance, the service should page [phone] (24 hours a day/7 days a week) to discuss the case. Subjective Krunal Bertrand is a 47 y.o. male. No interval event but with blood glucose of 306 at 1703 yesterday and 246 at noon today. Denies of any nausea or vomiting. Eating well Medications Scheduled Meds: ascorbic acid (VITAMIN C) tablet 500 mg 500 mg Oral QDAY aspirin chewable tablet 81 mg 81 mg Oral QDAY carvedilol (COREG) tablet 6.25 mg 6.25 mg Oral BID folic acid (FOLVITE) tablet 1 mg 1 mg Oral QDAY insulin aspart U-100 (NOVOLOG FLEXPEN) injection PEN 0-14 Units 0-14 Units Subcutaneous TID w/ meals insulin aspart U-100 (NOVOLOG FLEXPEN) injection PEN 12 Units 12 Units Subcutaneous TID w/ meals insulin glargine (LANTUS SOLOSTAR, BASAGLAR) injection PEN 26 Units 26 Units Subcutaneous QHS lactobacillus rhamnosus GG (CULTURELLE) 15 billion cell capsule 1 capsule 1 capsule Oral BID w/meals lisinopril (PRINIVIL; ZESTRIL) tablet 5 mg 5 [address] QDAY [address] (PROTONIX) tablet 40 mg 40 mg Oral QDAY risperiDONE (RISPERDAL) tablet 6 mg 6 mg Oral QHS traZODone (DESYREL) tablet 100 mg 100 mg Oral QHS vitamins, B complex tablet 1 tablet 1 tablet Oral QDAY Continuous Infusions: PRN and Respiratory Meds:ibuprofen Q6H PRN, loperamide QID PRN, OLANZapine Q6H PRN Objective Vital Signs: Last Filed Vital Signs: 24 Hour Range BP: 112/79 (12/08 799) Temp: 36.7 C (98.1 F) (12/08 799) Pulse: 85 (12/08 799) Respirations: 18 PER MINUTE (12/08 799) SpO2: 98 % (12/08 799) BP: (106-112)/(66-79) Temp: [36.7 C (98.1 F)] Pulse: [85-89] Respirations: [18 PER MINUTE] SpO2: [98 %] Vitals: 11/27/17 1200 11/27/17 1300 Weight: 78.8 kg (173 lb 12.8 oz) 78.8 kg (173 lb 12.8 oz) Intake/Output Summary: (Last 24 hours) No intake or output data in the 24 hours ending 12/07/17 1338 Physical Exam General: Alert, cooperative, no distress, appears stated age Head: Normocephalic, without obvious abnormality, atraumatic Eyes: Conjunctivae pink and non icteric sclera. PERRL, EOMs intact. Throat: Lips, mucosa and tongue normal. Teeth and gums normal Neck: Supple, symmetrical, trachea midline, no adenopathy, thyroid: no enlargement/tenderness/nodules, no carotid bruit and no JVD Lungs: Clear to auscultation bilaterally Heart: Regular rate and rhythm, S1, S2 normal, no murmur, click rub or gallop Abdomen: Soft, non-tender. Bowel sounds normal. No masses. No organomegaly. Extremities: Extremities normal, atraumatic, no cyanosis or edema Integumentary system: No rash or skin lesions noted Pulses: 2+ and symmetric, all extremities RESEARCH PROGRAM COORDINATOR:alert and oriented to PPT, No focal neurologic deficit Lab Review Lab Results Component Value Date/Time NA 142 11/27/2017 04:35 AM K 3.5 11/27/2017 04:35 AM CL 107 11/27/2017 04:35 AM CO2 27 11/27/2017 04:35 AM GAP 8 11/27/2017 04:35 AM Lab Results Component Value Date/Time WBC 10.0 11/27/2017 04:35 AM HGB 11.4 (L) 11/27/2017 04:35 AM PLTCT 288 11/27/2017 04:35 AM Point of Care Testing (Last 24 hours) FSBS (Manual): (!) 233 POC Glucose (Download): (!) 246 Radiology and other Diagnostics Review: No results found. MD Kip Martinez Abebe MD Supervisor [employer] Department of Internal Medicine, Hospitalist [phone] * Florecita Lucio RN - 12/07/2017 9:13 AM CDT Chart check completed * Marisol Hand RN - 12/06/2017 7:23 PM CDT Chart check performed. * Jeronimo Logan MD - 12/06/2017 10:24 AM CDT Formatting of this note may be different from the original. Psychiatric Progress Note LOS: 9 days Voluntary/Involuntary Status: Voluntary Guardian? None MEDICATIONS Current Psychotropic Medications: 1. Risperidone 6mg qHS 2. Trazodone 100mg QHS PRN 3. Olanzapine 2.5mg Q6H PRN ASSESSMENT AND DIAGNOSES 47yo M with hx of paranoid delusions and depression who presented to with SI. Pt with ongoing thoughts of suicide, does not voice plan or paranoid content to this selling underwriter. Will continue to monitor for safety. Provisional: 1. Schizophrenia 2. R/o Delusional Disorder PLAN: -Consulting internal medicine for DM management, ordering LFTs for 12/07. -Continue risperidone 6mg qhs and prn trazodone/zyprexa -DM: [facility] and Insulin Glargine 26u HS -reece milieu -SW interventions for dispo planning as needed. Disposition: continue admission to inpatient psychiatry Pt's plan of care discussed with Dr. Cordero. SUBJECTIVE Pt was seen in his room this morning. He reports "I am better but I am still suicidal". He denies HI/AVH at this time or side effects from current medications. Reports some difficulty sleeping but denies other physical complaints including headaches. REVIEW OF SYSTEMS 1. Psychiatric: positive for suicidal ideations 2. Neuro: negative for headache OBJECTIVE Vital Signs: Current Vital Signs: 24 Hour Range BP: 101/69 (12/07 799) Temp: 36.7 C (98.1 F) (12/07 799) Pulse: 68 (12/07 799) Respirations: 18 PER MINUTE (12/07 799) SpO2: 98 % (12/07 799) O2 Delivery: None (Room Air) (12/07 799) BP: (101-107)/(67-69) Temp: [36.7 C (98.1 F)] Pulse: [68-102] Respirations: [18 PER MINUTE] SpO2: [98 %] O2 Delivery: None (Room Air) Intensity Pain Scale 0-10 (Pain 1): (not recorded) Scheduled Medications: ascorbic acid (VITAMIN C) tablet 500 mg 500 mg Oral QDAY aspirin chewable tablet 81 mg 81 mg Oral QDAY carvedilol (COREG) tablet 6.25 mg 6.25 mg Oral BID folic acid (FOLVITE) tablet 1 mg 1 mg Oral QDAY insulin aspart U-100 (NOVOLOG FLEXPEN) injection PEN 0-14 Units 0-14 Units Subcutaneous TID w/ meals insulin aspart U-100 (NOVOLOG FLEXPEN) injection PEN 10 Units 10 Units Subcutaneous TID w/ meals insulin glargine (LANTUS SOLOSTAR, BASAGLAR) injection PEN 26 Units 26 Units Subcutaneous QHS lactobacillus rhamnosus GG (CULTURELLE) 15 billion cell capsule 1 capsule 1 capsule Oral BID w/meals lisinopril (PRINIVIL; ZESTRIL) tablet 5 mg 5 [address] Oral QDAY pantop[address]ole [address] (PROTONIX) tablet 40 mg 40 mg Oral QDAY risperiDONE (RISPERDAL) tablet 6 mg 6 mg Oral QHS traZODone (DESYREL) tablet 100 mg 100 mg Oral QHS vitamins, B complex tablet 1 tablet 1 tablet Oral QDAY PRN Medications: ibuprofen Q6H PRN, loperamide QID PRN 2 mg at 12/04/17 0859, OLANZapine Q6H PRN Mental Status Exam: General/Constitutional: Pt appears stated age, with fair hygiene, and in no acute distress Eye Contact: good Behavior: calm Speech: nl rate/tone/volume Mood: "better" Affect: constricted, mood incongruent Thought Process: linear and goal oriented Thought Content: endorses Si, no plan voiced, denies HI Perception: denies auditory or visual hallucinations. No evidence of delusions. Associations: intact Insight: fair to poor Judgement: poor Orientation: AAOX4 Recent and remote memory: intact per interview Attention span and concentration: intact per interview Cognition: intact Language: Czech Fund of knowledge/vocabulary: full Focused Physical Exam: Musculoskeletal: moves all extremities with ease. Neuro: no tremor, no dysarthria Jeronimo Logan MD Associated attestation - Sonam Cordero DO - 12/06/2017 2:55 PM CDT Formatting of this note may be different from the original. ATTESTATION I personally performed the healy portions of the E/M visit, discussed the case with the resident and concur with resident documentation of history, physical exam, assessment, and treatment plan unless otherwise noted. I personally participated in development of the plan of care. Please feel free to contact us with any additional questions or concerns by paging the consult team between 8am and 5pm on weekdays and between 8am and 3pm on weekends [phone]. Otherwise, page the resident services coordinator mill controller. Staff name: Sonam Cordero, Date: 12/06/2017 * Florecita Lucio, RN - 12/06/2017 9:14 AM CDT Chart check completed * Marisol Hand, ELICEO - 12/05/2017 7:51 PM CDT Chart check performed. * Julius Omer, PhD - 12/05/2017 3:08 PM CDT Service(s): Inpatient Group Psychotherapy Patient data/presentation/complaint: Mr. Bertrand was seen in group therapy (1300- 1400). He described his mood as a little better and reported that he was feeling better each day. He was noted to be attentive to group discussion but did not engage in discussion when asked. However, he would spontaneously comment on some aspects of the group discussion. No other issues noted. MSE: casually dressed and groomed, A+Ox3, mood a little better each day, restricted range of affect, speech WNL, eye contact was WNL, TP linear, TC no overt (or reported) evidence of SI/HI/AH/VH, I fair, J fair, adequate participation in therapy Psychosocial Intervention(s): Supportive therapy with a focus on cognitive therapy was provided. Response was adequate Plan: Will continue to follow on an inpatient basis. Provider: Julius Omer, Ph.D., [phone] * Jess Kothari - 12/05/2017 1:45 PM CDT Psychiatry Insurance Review Insurance Company: [facility] Insurance/Medicaid ID #: [id number] Reference /Authorization # [id number] security services specialist Ronn, completed live concurrent review Approved 3 additional days. 12/05 to 12/07. Expect d/c on FridayDecember 08. Next review on 12/08/17 with Ronn [phone] * Renetta Martin OT - 12/05/2017 9:00 AM CDT OCCUPATIONAL THERAPY ADULT PSYCH DAILY TREATMENT NOTE NAME:Krunal Bertrand :1970 AGE: 47 y.o. ADMISSION DATE: 11/27/2017 DAYS ADMITTED: LOS: 8 days Date of Service: 12/05/17 Patient seen x1 this date. Documentation reflects all daily treatment sessions. Pt seen in 0900 OT group on: Coping Skills Goal Setting Affect: Guarded and Restricted Eye Contact: only when directly addressed Interaction: Responded briefly when was directly addressed Activity Level: Patient tolerated full treatment session, remaining seated to side of room, away from group members at table Concentration: Appeared inattentive Poor attention span Comments: Appeared indifferent Little active engagement Little or no investment Spoke to grief playing a large role in his decreased ability to maintain healthy lifestyle. Listened to others. Reports reason for lack of participation is gastric issues this date and not feeling well. Plan: OT 5x/week for self management Recommend: continued education in symptom management and community based resources Therapist: Renetta Pastrana, OTR [id number] Date: 12/05/2017 * Shavon Mckeon MD - 12/05/2017 8:44 AM CDT Formatting of this note may be different from the original. Psychiatric Progress Note LOS: 8 days Voluntary/Involuntary Status: Voluntary Guardian? None MEDICATIONS Current Psychotropic Medications: 1. Risperidone 6mg qHS 2. Trazodone 100mg QHS PRN 3. Olanzapine 2.5mg Q6H PRN ASSESSMENT AND DIAGNOSES Krunal Bertrandis a 47 y.o.Caucasianmalewith ahistory of paranoid delusions and depression with suicidal ideations. Patient continues to endorse suicidal ideations without plan and states his thoughts of paranoia continue to improve even more so from the previous days. Will need continued inpatient care due to suicidal ideations. No medication changes today. 1. Schizophrenia vs Delusional Disorder PLAN Continued need for inpatient hospitalization for suicidal ideation Continue Risperidone 6mg QHS Continue Trazodone QHS and continue PRN Olanzapine Continue [facility] and Long-acting to 26 Units Disposition: Continuing need for hospitalization. Patient continues to have SI and paranoia though slightly improved. Strong concerns for patient safety if discharged. Seen and discussed with Dr. Stover. SUBJECTIVE Mr. Bertrand was seen for follow up. He reports his mood is "better". He continues to endorse paranoia and suicidal ideations but feels both have improved. He denies HI/AVH. He reports he felt sick to his stomach this morning and threw up x1 after breakfast. Given one time dose of Zofran for nausea. REVIEW OF SYSTEMS 1. Psychiatric: paranoia, SI 2. GI: nausea and vomiting x1 OBJECTIVE Vital Signs: Current Vital Signs: 24 Hour Range BP: 103/65 (12/06 799) Temp: 36.9 C (98.4 F) (12/06 799) Pulse: 101 (12/06 799) Respirations: 18 PER MINUTE (12/06 799) SpO2: 98 % (12/06 799) BP: (103-105)/(65-68) Temp: [36.6 C (97.9 F)-36.9 C (98.4 F)] Pulse: [86-101] Respirations: [16 PER MINUTE-18 PER MINUTE] SpO2: [94 %-98 %] Intensity Pain Scale 0-10 (Pain 1): (not recorded) Scheduled Medications: ascorbic acid (VITAMIN C) tablet 500 mg 500 mg Oral QDAY aspirin chewable tablet 81 mg 81 mg Oral QDAY carvedilol (COREG) tablet 6.25 mg 6.25 mg Oral BID folic acid (FOLVITE) tablet 1 mg 1 mg Oral QDAY insulin aspart U-100 (NOVOLOG FLEXPEN) injection PEN 0-14 Units 0-14 Units Subcutaneous TID w/ meals insulin aspart U-100 (NOVOLOG FLEXPEN) injection PEN 10 Units 10 Units Subcutaneous TID w/ meals insulin glargine (LANTUS SOLOSTAR, BASAGLAR) injection PEN 26 Units 26 Units Subcutaneous QHS lactobacillus rhamnosus GG (CULTURELLE) 15 billion cell capsule 1 capsule 1 capsule Oral BID w/meals lisinopril (PRINIVIL; ZESTRIL) tablet 5 mg [address] QDAY [address] (PROTONIX) tablet 40 mg 40 mg Oral QDAY risperiDONE (RISPERDAL) tablet 6 mg 6 mg Oral QHS traZODone (DESYREL) tablet 100 mg 100 mg Oral QHS vitamins, B complex tablet 1 tablet 1 tablet Oral QDAY PRN Medications: ibuprofen Q6H PRN, loperamide QID PRN 2 mg at 12/04/17 0859, OLANZapine Q6H PRN Mental Status Exam: General/Constitutional: WM, appears stated age, NAD Speech/Motor: Normal rate and tone/No PMR/PMA Mood/Affect: Better/Mood congruent Thought Process: Linears Associations: No loose associations Thought Content: Reports SI, no HI Perception: Denies AVH, reports paranoia Insight/Judgment: Fair/Fair Focused Physical Exam: Musculoskeletal: Normal gait Neuro: No focal deficits Shavon Mckeon MD Associated attestation - Gabriel Stover MD - 12/05/2017 1:37 PM CDT Formatting of this note may be different from the original. ATTESTATION I personally performed the healy portions of the E/M visit, discussed case with resident and concur with resident documentation of history, physical exam, assessment, and treatment plan unless otherwise noted. Staff name: Gabriel Stover MD Date: 12/05/2017 * Kelvin Mckeon RN - 12/05/2017 8:12 AM CDT Shift chart check complete. * Ciera Wheatley, ELICEO - 12/05/2017 1:23 AM CDT 0124 in error blood glucose not taken at bedtime. BS 203 at this time. Will continue to monitor. * Marisol Hand, ELICEO - 12/04/2017 9:04 PM CDT Chart check performed. * Julius Omer, PhD - 12/04/2017 3:43 PM CDT Service(s): Inpatient Group Psychotherapy Patient data/presentation/complaint: Mr. Bertrand was seen in group therapy (1300- 1400). He described his mood as a little better today. Despite reporting feeling better he shared that he was still coping with his problems. He was noted to be more attentive towards group discussion and material today. He was able to comment briefly on issues being discussed by the group. Some distraction was present. No other issues noted. MSE: casually dressed and groomed, A+Ox3, mood a little better, fair range of affect, speech WNL, eye contact was WNL, TP grossly linear, TC no overt (or reported) evidence of SI/HI/AH/VH, I fair, J fair-good, adequate participation in therapy Psychosocial Intervention(s): Supportive therapy with a focus on emotion- focused coping was provided. Response was positive Plan: Will continue to follow on an inpatient basis. Provider: Julius Omer, Ph.D., [phone] * Najma Lanza - 12/04/2017 3:35 PM CDT A medication education group was performed today, and Krunal Bertrand attended all of the group.Patient actively participated in group. Patient had a good understanding of material in group. Common psychiatric medications were reviewed for indications, side effects, and onset of effect. Methods for medication adherence were addressed with group. Pt will use a pillbox and calendar to remember to take medications. Pt has requested a pillbox for discharge. Pt also talked about doing well on long acting injection in the past but said he'll be fine on taking pills this time using the calendar and pillbox. Will discuss with team in rounds. Provider:Najma Lanza director of student affairs * Poornima Correa - 12/04/2017 12:58 PM CDT OCCUPATIONAL THERAPY REC THERAPY DAILY NOTE Daily Note Patient seen x1 this date. Documentation reflects all daily treatment sessions. Pt attended activity/group: Yes Pt participated: Fully Pt's interactions: Eye contact when spoken to and Initiated interaction with others, quiet today. Activity was: Who Wants To Be A Millionaire, music, dancing, singing. Plan: Continue to attend therapeutic recreation group as possible. Therapist: Poornima Correa, AUTOMATIC MAINTAINER Date: 12/04/2017 * Colby Roman - 12/04/2017 9:33 AM CDT Reason for Visit: there was a consult for the patient but it disappeared. Pt is suicidal and he wanted to talk with the ladies locker room attendant. Pt lives in [facility], has a son and a daughter. He lost his Marlen 8 years ago. He tried to take his life by taking a lot of pills from what he communicated. Pt said that he feels afraid but does not know why. Pt said he wants to be "put somewhere safe where they will not get me." Pt said that he has dealt with bad people in the past "mafia" and now he has a lot of problems. Juanita/Latter-Day: Restorationist, pt used to go to a sabianist mosque with his Marlen when she was alive, it seems that his juanita was contingent upon his when she was alive, ladies locker room attendant feels like the sabianist juanita is a part of his that he holds on to not because he actually believes it but that reminds him of his . Pt said he belives in God but when ladies locker room attendant asked about the devil pt said that he does not believe in the devil. Source of Purpose/Meaning: none at this time, pt feels depressed and afraid. Worries/Concerns/Struggles: Pt is afraid that the mafia will come and get him and that they had threatened his kids as well. Pt wants to talk to his kids but is worried that they will reject him. Method(s) of Coping: pt does not have positive coping skills, unfortunately he turned to suicide as an escape route from his problems. The fact that he asked for a ladies locker room attendant visit is significant. Support System: NONE Interventions/Plan: ladies locker room attendant met with the pt in his room and engaged him in life review through conversation. Pt opened up about his suicide attempt and that he had SI in the past but this time he followed through with his plan. He said that he feels afraid and is afraid for his life because the mafia is after him. He misses his kids and is afraid that the mafia will hurt him. Pt wanted to talk with a ladies locker room attendant and be heard, ladies locker room attendant provided a compassionate ear and a platform to bounce off his thoughts. Visit was ended with praying "our father " pt was very much receptive to the ladies locker room attendant visit, was engaging and genuinely interested in what the ladies locker room attendant had to say. Pager: [phone] PCU: 7 The spiritual care team is available as needed, 20/01, through the campus switchboard ([phone]). For immediate response, please page [phone]. For a response within 24 hours, please submit an order in O2 for a ladies locker room attendant consult or call the administrative voicemail at [phone]. * Shavon Mckeon MD - 12/04/2017 9:15 AM CDT Formatting of this note may be different from the original. Psychiatric Progress Note LOS: 7 days Voluntary/Involuntary Status: Voluntary MEDICATIONS Current Psychotropic Medications: 1. Risperidone 6mg QHS 2. Trazodone 100mg QHS PRN 3. Olanzapine 2.5mg Q6H PRN ASSESSMENT AND DIAGNOSES Krunal Bertrand is a 47 y.o. male with a history of paranoid delusions and depression with suicidal ideations. Patient continues to endorse suicidal ideations without plan and states his thoughts of paranoia a slightly improved even more so from the previous days. He also expresses some forward thinking with plan to go on vacation in [place] to visit a relative. Will need continued inpatient care due to suicidal ideations. No medication changes today. 1. Schizophrenia vs Delusional Disorder PLAN 2. Continuing need for inpatient hospitalization for suicidal ideation 3. Continue Risperidone 6mg QHS 4. Will schedule Trazodone and continue PRN Olanzapine 5. Continue [facility] increase Long-acting to 26 Units (glucose rising into low 300s) Disposition: Continuing need for hospitalization. Patient continues to have SI and paranoia though slightly improved. Strong concerns for patient safety if discharged. Seen and discussed with Dr. Stover. SUBJECTIVE Mr. Bertrand was seen in his room for follow up today. Patient reports he feels " a little better" but is still suicidal and still feels the mafia is after him. He expressed to the medical student that he was felt like some of the staff on the unit were being rude to him and treating him poorly. He denies any HI or AVH today. He reports poor sleep with some dreams of being chased by the mafia. REVIEW OF SYSTEMS 1. Psychiatric: suicidal ideation, paranoid delusions 2. Constitutional: negative OBJECTIVE Vital Signs: Current Vital Signs: 24 Hour Range BP: 101/55 (12/05 799) Temp: 36.7 C (98.1 F) (12/05 799) Pulse: 86 (12/05 799) Respirations: 18 PER MINUTE (12/05 799) SpO2: 97 % (12/05 799) BP: (101-118)/(55-82) Temp: [36.7 C (98.1 F)] Pulse: [86-87] Respirations: [18 PER MINUTE] SpO2: [97 %] Intensity Pain Scale 0-10 (Pain 1): (not recorded) Scheduled Medications: ascorbic acid (VITAMIN C) tablet 500 mg 500 mg Oral QDAY aspirin chewable tablet 81 mg 81 mg Oral QDAY carvedilol (COREG) tablet 6.25 mg 6.25 mg Oral BID folic acid (FOLVITE) tablet 1 mg 1 mg Oral QDAY insulin aspart U-100 (NOVOLOG FLEXPEN) injection PEN 0-14 Units 0-14 Units Subcutaneous TID w/ meals insulin aspart U-100 (NOVOLOG FLEXPEN) injection PEN 10 Units 10 Units Subcutaneous TID w/ meals insulin glargine (LANTUS SOLOSTAR, BASAGLAR) injection PEN 26 Units 26 Units Subcutaneous QHS lactobacillus rhamnosus GG (CULTURELLE) 15 billion cell capsule 1 capsule 1 capsule Oral BID w/meals lisinopril (PRINIVIL; ZESTRIL) tablet 5 mg 5 mg Oral QDAY pantoprazole DR (PROTONIX) tablet 40 mg 40 mg Oral QDAY risperiDONE (RISPERDAL) tablet 6 mg 6 mg Oral QHS vitamins, B complex tablet 1 tablet 1 tablet Oral QDAY PRN Medications: ibuprofen Q6H PRN, loperamide QID PRN 2 mg at 12/04/17 0859, OLANZapine Q6H PRN , traZODone QHS PRN Stopped at 12/03/172020 Mental Status Exam: General/Constitutional: WM, appears stated age, tired appearing, fair hygiene Speech/Motor: Normal rate and tone/No PMA/PMR Mood/Affect: "A little better"/Blunted Thought Process: Linear and concrete Associations: No loose associations Thought Content: Reports SI, no plan or intent, denies HI Perception: Denies AVH, does not appear to attend to internal stimuli Insight/Judgment: Fair/Fair Focused Physical Exam: Musculoskeletal: Normal gait Neuro: No focal deficits Shavon Mckeon MD Associated attestation - Gabriel Stover MD - 12/04/2017 2:25 PM CDT Formatting of this note may be different from the original. ATTESTATION I personally performed the healy portions of the E/M visit, discussed case with resident and concur with resident documentation of history, physical exam, assessment, and treatment plan unless otherwise noted. Staff name: Gabriel Stover MD Date: 12/04/2017 * Jena Ramsey, KAIDEN - 12/04/2017 9:00 AM CDT OCCUPATIONAL THERAPY NO TREATMENT NOTE The patient was not seen due to: Patient not available Attempted to see patient 1 time(s). This therapist was present in treatment team meeting discussion of patient. Therapist: Jena Ramsey OT Date: 12/04/2017 * Chelle Coffey, ELICEO - 12/04/2017 8:32 AM CDT Chart check complete * Teresa Bland RN - 12/04/2017 12:52 AM CDT Chart check completed. * Ciera Wheatley, ELICEO - 12/03/2017 8:24 PM CDT 2023 requested prn med for insomnia. Prn trazodone given. 2107 pt in room resting as of this time. Will continue to monitor. * Poornima Correa - 12/03/2017 4:17 PM CDT OCCUPATIONAL THERAPY REC THERAPY DAILY NOTE Daily Note Patient seen x2 this date. Documentation reflects all daily treatment sessions. Pt attended activity/group: Yes Pt participated: Fully, seemed to enjoy the groups. Pt's interactions: Eye contact when spoken to and Initiated interaction with others, smiled, increased interactions with other. Activity was: Wheel of Fortune, talked about activities to reduce stress and anxiety, 2nd group- Piictu or card games. Plan: Continue to attend therapeutic recreation group as possible. Therapist: Poornima Correa, AUTOMATIC MAINTAINER Date: 12/03/2017 * Julius Omer, PhD - 12/03/2017 3:31 PM CDT Service(s): Inpatient Group Psychotherapy Patient data/presentation/complaint: Mr. Bertrand was seen in group therapy (1300- 1400). He described his mood as not very good today. He did not actively discuss group material on this date. However, he appeared attentive and more interested in group content. No other issues noted. MSE: casually dressed and groomed, A+Ox3, mood not very good, restricted range of affect, speech WNL, eye contact was WNL, TP grossly linear, TC no overt (or reported) evidence of SI/HI/AH/VH, I fair, J fair, limited participation in therapy Psychosocial Intervention(s): Supportive therapy with a focus on support system development and coping was provided. Response was adequate Plan: Will continue to follow on an inpatient basis. Provider: Julius Omer, Ph.D., [phone] * Chelle Silverio, RN - 12/03/2017 1:36 PM CDT Psychiatry Insurance Review No. 1 Insurance Company: [facility] Insurance/Medicaid ID #: [id number] Reference /Authorization # [id number] security services specialist Ronn, completed live concurrent review Approved 2 days and 12/04 LCD 12/04/17 Next review on 12/05/17 with Ronn [phone] * Jena Ramsey, OT - 12/03/2017 9:00 AM CDT OCCUPATIONAL THERAPY ADULT PSYCH DAILY TREATMENT NOTE NAME:Krunal Bertrand :1970 AGE: 47 y.o. ADMISSION DATE: 11/27/2017 DAYS ADMITTED: LOS: 6 days Date of Service: 12/03/17 Patient seen x1 this date. Documentation reflects all daily treatment sessions. Pt seen in 0900 OT group on: Emotions Affect: Restricted and Unremarkable Eye Contact: fair Interaction: Minimal Activity Level: Left and returned Was present approximately 30 minutes total Concentration: Difficult to assess due to limited interaction Comments: Little active engagement Little or no investment Plan: OT 5x/week for self management Recommend: continued education in symptom management and community based resources Therapist: Jena Ramsey OT Date: 12/03/2017 * Shavon Mckeon MD - 12/03/2017 8:52 AM CDT Formatting of this note may be different from the original. Psychiatric Progress Note LOS: 6 days Voluntary/Involuntary Status: Voluntary Guardian? None MEDICATIONS Current Psychotropic Medications: 1. Risperidone 4mg QHS 2. Trazodone 100mg QHS PRN 3. Olanzapine 2.5mg Q6H PRN ASSESSMENT AND DIAGNOSES Krunal Bertrand is a 47 y.o. male with a history of paranoid delusions and depression with suicidal ideations. Patient continues to endorse suicidal ideations without plan and states his thoughts of paranoia a slightly improved. 1. Schizophrenia PLAN - Continuing need for inpatient hospitalization for suicidal ideation - Increased Risperidone to 6 mg QHS - Continue PRN Trazodone and Olanzapine - Continue [facility] Disposition: Continuing need for stabilization. Patient continues to have SI and paranoia that the mafia is trying to kill him. Continued improvement, strong concerns for patient safety if discharged Seen and discussed with Dr. Stover. SUBJECTIVE Mr. Bertrand was seen in follow up today. He continues to have paranoia and suicidal ideations. He feels his worry/paranoia has gotten a "little better". He feels his impulsivity is the same. He reports his appetite is good. Denies HI , no AVH. REVIEW OF SYSTEMS 1. Psychiatric: suicidal ideation, paranoid delusions 2. Constitutional: Negative OBJECTIVE Vital Signs: Current Vital Signs: 24 Hour Range Pulse: 80 (12/02 2004) Pulse: [80] Intensity Pain Scale 0-10 (Pain 1): (not recorded) Scheduled Medications: ascorbic acid (VITAMIN C) tablet 500 mg 500 mg Oral QDAY aspirin chewable tablet 81 mg 81 mg Oral QDAY carvedilol (COREG) tablet 6.25 mg 6.25 mg Oral BID folic acid (FOLVITE) tablet 1 mg 1 mg Oral QDAY insulin aspart U-100 (NOVOLOG FLEXPEN) injection PEN 0-14 Units 0-14 Units Subcutaneous TID w/ meals insulin aspart U-100 (NOVOLOG FLEXPEN) injection PEN 10 Units 10 Units Subcutaneous TID w/ meals insulin glargine (LANTUS SOLOSTAR, BASAGLAR) injection PEN 24 Units 24 Units Subcutaneous QHS lactobacillus rhamnosus GG (CULTURELLE) 15 billion cell capsule 1 capsule 1 capsule Oral BID w/meals lisinopril (PRINIVIL; ZESTRIL) tablet 5 mg 5 mg Oral QDAY pantoprazole DR (PROTONIX) tablet 40 mg 40 mg Oral QDAY risperiDONE (RISPERDAL) tablet 4 mg 4 mg Oral QHS vitamins, B complex tablet 1 tablet 1 tablet Oral QDAY PRN Medications: ibuprofen Q6H PRN, loperamide QID PRN, OLANZapine Q6H PRN, traZODone QHS PRN 100 mg at 11/30/172047 Mental Status Exam: General/Constitutional: CM, appears stated age, NAD Speech/Motor: Normal rate and tone, no PMA/PMR Mood/Affect: "Better"/Mood congruent Thought Process: Linear and goal directed Associations: No loose associations Thought Content: Reports SI, no HI Perception: Reports paranoid delusion with slight improvement, no AVH Insight/Judgment: Poor/Fair Focused Physical Exam: Musculoskeletal: Normal gait Neuro: No focal deficits Shavon Mckeon MD Associated attestation - Gabriel Stover MD - 12/03/2017 4:35 PM CDT Formatting of this note may be different from the original. ATTESTATION I personally performed the healy portions of the E/M visit, discussed case with resident and concur with resident documentation of history, physical exam, assessment, and treatment plan unless otherwise noted. Staff name: Gabriel Stover MD Date: 12/03/2017 * Chelle Coffey RN - 12/03/2017 8:13 AM CDT Chart check complete * Kamar Aly RN - 12/02/2017 7:09 PM CDT Chart check completed. * Florecita Guillen [facility] - 12/02/2017 5:27 PM CDT Symptom Management group - 9968 - 2397 - Pt attended group and was oriented x3, mood was downcast. Pt introduced himself and stated he felt overwhelmed and was still not feeling safe. Pt received Wellness Plan form and Breathing exercise worksheet to help with symptom management. Pt did appear to benefit from the support and structure of group. * Poornima Correa - 12/02/2017 4:16 PM CDT OCCUPATIONAL THERAPY REC THERAPY DAILY NOTE Daily Note Patient seen x2 this date. Documentation reflects all daily treatment sessions. Pt attended activity/group: Yes Pt participated: Fully Pt's interactions: Eye contact when spoken to and Initiated interaction with others when necessary, otherwise quiet, cooperative, pleasant. Activity was: Pet therapy, [employer] team game. Plan: Continue to attend therapeutic recreation group as possible. Therapist: Poornima Correa, AUTOMATIC MAINTAINER Date: 12/02/2017 * Shavon Mckeon MD - 12/02/2017 12:23 PM CDT Formatting of this note may be different from the original. Psychiatric Progress Note LOS: 5 days Voluntary/Involuntary Status: Voluntary Guardian? None MEDICATIONS Current Psychotropic Medications: 1. Risperidone 2mg QHS 2. Trazodone 100mg QHS PRN 3. Olanzapine 2.5mg Q6H PRN ASSESSMENT AND DIAGNOSES Krunal Bertrand is a 47 y.o. male with a history of paranoid delusions and depression with suicidal ideations who presents to inpatient psychiatry after transfer from medicine tylenol overdose, which appears to be precipitated by uncontrolled paranoid delusions. Factors that seem to have predisposed him to suicidal ideations include uncontrolled schizophrenia/delusional disorder. This current problem is maintained by medication non-compliance. Proposed treatment will consist of risperidone with intent to initiate a long acting injectable 1. Schizophrenia vs Delusional Disorder 2. Major Depressive Disorder, Recurrent, Severe with psychotic features PLAN - Continuing need for inpatient hospitalization for continued suicidal ideation - Continue Risperidone to 4mg QHS - Continue PRN Trazodone and Olanzapine - Continue with sliding scale (MDCF) Disposition: Continuing need for stabilization.Patient continues to have SI and paranoid delusions. Some improvement today, but strong concerns for patient safety. Seen and discussed with Dr. Stover. SUBJECTIVE Mr. Bertrand was seen in follow up today. He reports that he continues to have suicidal thoughts and expresses concerns that the mafia is going to get him. He states he wishes the suicide attempt would have worked. He reports fair sleep and good appetite. He thinks he feels a "little better" with the increased dose of risperidone. He denies any HI or AVH. When asked he states that his protective factor is his family. Patient counseled to continue to think of her family in times of distress. REVIEW OF SYSTEMS 1. Psychiatric: paranoid delusions, suicidal ideations 2. MSK: no muscle aches OBJECTIVE Vital Signs: Current Vital Signs: 24 Hour Range BP: 99/67 (12/03 799) Temp: 36.9 C (98.4 F) (12/03 799) Pulse: 94 (12/03 799) Respirations: 18 PER MINUTE (12/03 799) SpO2: 98 % (12/03 799) BP: (99-104)/(67) Temp: [36.9 C (98.4 F)] Pulse: [74-94] Respirations: [18 PER MINUTE] SpO2: [98 %] Intensity Pain Scale 0-10 (Pain 1): (not recorded) Scheduled Medications: ascorbic acid (VITAMIN C) tablet 500 mg 500 mg Oral QDAY aspirin chewable tablet 81 mg 81 mg Oral QDAY carvedilol (COREG) tablet 6.25 mg 6.25 mg Oral BID folic acid (FOLVITE) tablet 1 mg 1 mg Oral QDAY insulin aspart U-100 (NOVOLOG FLEXPEN) injection PEN 0-14 Units 0-14 Units Subcutaneous TID w/ meals insulin aspart U-100 (NOVOLOG FLEXPEN) injection PEN 10 Units 10 Units Subcutaneous TID w/ meals insulin glargine (LANTUS SOLOSTAR, BASAGLAR) injection PEN 24 Units 24 Units Subcutaneous QHS lactobacillus rhamnosus GG (CULTURELLE) 15 billion cell capsule 1 capsule 1 capsule Oral BID w/meals lisinopril (PRINIVIL; ZESTRIL) tablet 5 mg [address] mg [address] (PROTONIX) tablet 40 mg 40 mg Oral QDAY risperiDONE (RISPERDAL) tablet 4 mg 4 mg Oral QHS vitamins, B complex tablet 1 tablet 1 tablet Oral QDAY PRN Medications: ibuprofen Q6H PRN, loperamide QID PRN, OLANZapine Q6H PRN, traZODone QHS PRN 100 mg at 11/30/172047 Mental Status Exam: General/Constitutional: WM, appears stated age, cooperative with interview Speech/Motor: Normal rate and tone/no PMA/PMR Mood/Affect: 'I feel a little better/Mood congruent Thought Process: Linear and goal directed Associations: No loose associations Thought Content: No HI, continues to report SI Perception: Denies AVH, paranoid delusion present Insight/Judgment: Fair/Fair Focused Physical Exam: Musculoskeletal: Normal gait Neuro: No focal deficits Shavon Mckeon MD Associated attestation - Gabriel Stover MD - 12/02/2017 4:17 PM CDT Formatting of this note may be different from the original. ATTESTATION I personally performed the healy portions of the E/M visit, discussed case with resident and concur with resident documentation of history, physical exam, assessment, and treatment plan unless otherwise noted. Staff name: Gabriel Stover MD Date: 12/02/2017 * Cammy Maurer RN - 12/02/2017 11:49 AM CDT Chart check completed. * Jena Ramsey OT - 12/02/2017 9:00 AM CDT OCCUPATIONAL THERAPY ADULT PSYCH DAILY TREATMENT NOTE NAME:Krunal Bertrand :1970 AGE: 47 y.o. ADMISSION DATE: 11/27/2017 DAYS ADMITTED: LOS: 5 days Date of Service: 12/02/17 Patient seen x1 this date. Documentation reflects all daily treatment sessions. Pt seen in 09 OT group on: Coping Skills Affect: Restricted and Unremarkable Eye Contact: Generally Within functional limits Interaction: Minimal Responded briefly when was directly addressed Activity Level: Patient tolerated treatment session, remaining seated to side of room, away from group members at table. Left and returned quickly one time. Concentration: Fair-adequate attention span Comments: Attentive to group activity/discussion Fair participation Appeared more receptive and less resistive today. Pt stated something he can do to be good to himself is: "Take care of myself", but was unable to relate specifics. Did stated something he enjoys doing is "hunting." Plan: OT 5x/week for self management Recommend: continued education in symptom management and community based resources Therapist: Jena Ramsey OT Date: 12/02/2017 * Kamar Aly RN - 12/01/2017 7:08 PM CDT Chart check completed. * Poornima Correa - 12/01/2017 5:00 PM CDT OCCUPATIONAL THERAPY REC THERAPY DAILY NOTE Daily Note Patient seen x2 this date. Documentation reflects all daily treatment sessions. Pt attended activity/group: Yes Pt participated: Fully Pt's interactions: Eye contact when spoken to and Initiated interaction with others when necessary otherwise quiet. Activity was: Jeopardy team game and Jean Plan: Continue to attend therapeutic recreation group as possible. Therapist: Poornima Correa, Rand Date: 12/01/2017 * Shavon Mckeon MD - 12/01/2017 4:09 PM CDT Attempted to reach mother and daughter via phone numbers in chart to obtain collateral. Mother's number did not have VM set up. Daughter's number has been disconnected. * Julius Omer, PhD - 12/01/2017 1:15 PM CDT Service(s): Inpatient Group Psychotherapy Patient data/presentation/complaint: Mr. Bertrand was seen in group therapy (1100- 1200). He described his mood as alright today. However, he reported to the group that he recently attempted suicide and stated I dont want to live. He did not comment on actively feeling suicidal during the session. He made no comments regarding group material. No other issues noted. MSE: casually dressed and groomed, A+Ox3, mood alright, restricted affect , speech WNL, eye contact was WNL, TP mild perseveration, TC no overt (or reported) evidence of r/o SI, HI/AH/VH, I fair-good, J fair-good, limited participation in therapy Psychosocial Intervention(s): Supportive therapy with a focus on behavior change and health promotion was provided. Response was limited Plan: Will continue to follow on an inpatient basis. Provider: Julius Omer, Ph.D., [phone] * Cammy Maurer, ELICEO - 12/01/2017 11:14 AM CDT Chart check completed. * Shavon Mckeon MD - 12/01/2017 9:32 AM CDT Formatting of this note may be different from the original. Psychiatric Progress Note LOS: 4 days Voluntary/Involuntary Status: Voluntary Guardian? None MEDICATIONS Current Psychotropic Medications: 1. Risperidone 2mg QHS 2. Trazodone 100mg QHS PRN 3. Olanzapine 2.5mg Q6H PRN ASSESSMENT AND DIAGNOSES Krunal Bertrand is a 47 y.o. male with a history of paranoid delusions and depression with suicidal ideations who presents to inpatient psychiatry after transfer from medicine tylenol overdose, which appears to be precipitated by uncontrolled paranoid delusions. Factors that seem to have predisposed him to suicidal ideations include uncontrolled schizophrenia/delusional disorder. This current problem is maintained by medication non-compliance. Proposed treatment will consist of risperidone with intent to initiate a long acting injectable . 1. Schizophrenia vs Delusional Disorder 2. Major Depressive Disorder, Recurrent, Severe with psychotic features PLAN - Continuing need for inpatient hospitalization for continued suicidal ideation - Increase Risperidone to 4mg QHS - Continue PRN Trazodone and Olanzapine - Patient with hypoglycemic events x2 yesterday and this morning. Will decrease long acting insulin from 28 units to 24 units. - Continue with sliding scale (MDCF) Metabolic labs completed on 11/29/2017. Disposition: Continuing need for stabilization. Seen and discussed with Dr. Stover. SUBJECTIVE Mr. Bertrand was seen today for follow up in the conference room. Patient reports his mood is "not good at all". He continues to endorse suicidal ideation. He says he does not have a plan, but the thoughts persist. He reports his appetite is good. He states he did not sleep well due to nightmares. He is denying current AVH. REVIEW OF SYSTEMS 1. Psychiatric: positive paranoid delusions, suicidal ideation, negative for AVH , HI 2. Constitution: fatigue, red eyes OBJECTIVE Vital Signs: Current Vital Signs: 24 Hour Range BP: 91/53 (12/02 799) Temp: 36.7 C (98.1 F) (12/02 799) Pulse: 78 (12/02 799) Respirations: 16 PER MINUTE (12/02 799) SpO2: 99 % (12/02 799) BP: (91-102)/(53-60) Temp: [36.7 C (98.1 F)] Pulse: [75-78] Respirations: [16 PER MINUTE-20 PER MINUTE] SpO2: [99 %] Intensity Pain Scale 0-10 (Pain 1): (not recorded) Scheduled Medications: ascorbic acid (VITAMIN C) tablet 500 mg 500 mg Oral QDAY aspirin chewable tablet 81 mg 81 mg Oral QDAY carvedilol (COREG) tablet 6.25 mg 6.25 mg Oral BID folic acid (FOLVITE) tablet 1 mg 1 mg Oral QDAY insulin aspart U-100 (NOVOLOG FLEXPEN) injection PEN 0-14 Units 0-14 Units Subcutaneous TID w/ meals insulin aspart U-100 (NOVOLOG FLEXPEN) injection PEN 10 Units 10 Units Subcutaneous TID w/ meals insulin glargine (LANTUS SOLOSTAR, BASAGLAR) injection PEN 24 Units 24 Units Subcutaneous QHS lactobacillus rhamnosus GG (CULTURELLE) 15 billion cell capsule 1 capsule 1 capsule Oral BID w/meals lisinopril (PRINIVIL; ZESTRIL) tablet 5 mg 5 [address] Oral QDAY pantoprazole DR (PROTONIX) tablet 40 mg 40 mg Oral QDAY risperiDONE (RISPERDAL) tablet 4 mg 4 mg Oral QHS vitamins, B complex tablet 1 tablet 1 tablet Oral QDAY PRN Medications: ibuprofen Q6H PRN, loperamide QID PRN, OLANZapine Q6H PRN, traZODone QHS PRN 100 mg at 11/30/172047 Mental Status Exam: General/Constitutional: WM, appears stated age, NAD Speech/Motor: Normal rate and tone/No PMA/PMR Mood/Affect: "Not good at all"/Blunted, mood congruent Thought Process: Linear and goal directed Associations: No loose associations Thought Content: No HI but reports SI without plan Perception: Denies AVH, continues to endorse paranoid delusions Insight/Judgment: Poor/Fair Focused Physical Exam: Musculoskeletal: Normal gait Neuro: No focal deficits Shavon Mckeon MD Associated attestation - Gabriel Stover MD - 12/01/2017 12:40 PM CDT Formatting of this note may be different from the original. ATTESTATION I personally performed the healy portions of the E/M visit, discussed case with resident and concur with resident documentation of history, physical exam, assessment, and treatment plan unless otherwise noted. Staff name: Gabriel Stover MD Date: 12/01/2017 * Jena Ramsey OT - 12/01/2017 9:15 AM CDT OCCUPATIONAL THERAPY ADULT PSYCH DAILY TREATMENT NOTE NAME:Krunal Bertrand :1970 AGE: 47 y.o. ADMISSION DATE: 11/27/2017 DAYS ADMITTED: LOS: 4 days Date of Service: 12/01/17 Patient seen x1 this date. Documentation reflects all daily treatment sessions. Pt seen in 0900 OT group on: Self Awareness Self Expression Affect: Guarded and Restricted Eye Contact: fair Interaction: Minimal Declined to verbally share to introduce himself to group or to identify gratitude. "I'm all right." Activity Level: Left and returned several times Was present approximately 30 minutes total Within functional limits Concentration: Appeared inattentive Appeared preoccupied/distracted Difficult to assess due to limited interaction Comments: Little active engagement Little or no investment Was was cued/encouraged to identify gratitude for something, pt eventually said , "get better." GOALS: Identify x1 coping skill/weekly for management of symptoms Participate with stable mood 25% OT activities Participate in 25% OT activities Participate without reference to suicide 25% OT activities Patient will state x1 future plan or reason for living Plan: OT 5x/week for self management Recommend: continued education in symptom management and community based resources Therapist: Jena Ramsey, OT Date: 12/01/2017 * Nolan Irvin, RN - 11/30/2017 8:53 PM CDT Patient requested medication for sleep. PRN Trazodone given as ordered At 23:45, patient sleeping without discomfort * Kamar Aly, ELICEO - 11/30/2017 7:48 PM CDT Chart check completed. * Cammy Maurer RN - 11/30/2017 12:42 PM CDT Chart check completed. * Poornima Correa - 11/30/2017 12:19 PM CDT OCCUPATIONAL THERAPY REC THERAPY DAILY NOTE Daily Note Patient seen x2 this date. Documentation reflects all daily treatment sessions. Pt attended activity/group: Yes Pt participated: Fully with pet therapy and music. Patient did not play any of the card games. Pt's interactions: Eye contact when spoken to and Initiated interaction with others occasionally, otherwise quiet and kept to himself. Activity was: Music listening, pet therapy, card games. Plan: Continue to attend therapeutic recreation group as possible. Therapist: Poornima Correa, AUTOMATIC MAINTAINER Date: 11/30/2017 * Prudence Hawkins RN - 11/30/2017 8:46 AM CDT 0745 FSBS 65 mg/dl. Pt asymptomatic. Given orange juice. Ate breakfast at 0800. BS now 119 mg/dl. Given scheduled insulin; no sliding scale required. * Viola Monahan DO - 11/30/2017 8:08 AM CDT Formatting of this note may be different from the original. Psychiatric Progress Note LOS: 3 days Voluntary/Involuntary Status: voluntary Guardian? none MEDICATIONS Current Psychotropic Medications: 1. Risperidone 2mg QHS 2. Trazodone 100mg QHS PRN 3. Olanzapine 2.5mg Q6H PRN ASSESSMENT AND DIAGNOSES 47yo M with hx of paranoid delusions and depression presenting to inpatient psychiatry after suicide attempt by tylenol overdose. Continues to endorse suicidal ideations today. Requires further stabilization. 1. Schizophrenia vs Delusional Disorder 2. MDD, recurrent, severe, with psychotic features PLAN No med changes today Patient with continuing suicidal ideation today Disposition: continue admission to inpt psychiatry for stabilization, to discharge home once stabilized Discussed with Dr. Stover SUBJECTIVE Pt seen in his room this morning. He reports that he is having "bad depression" . Notes that he is sleeping well over night and that he doesn't feel like getting out of bed yet. Notes that his appetite has improved some. Denies pain. Reports tolerating medications OK. + SI - mostly passive, denies AVH and HI. Patient did use prn trazodone overnight but has not needed prn olanzapine. Nursing reports no acute events overnight REVIEW OF SYSTEMS Denies headache, changed in vision, difficulty breathing, abdominal pain, nausea , diarrhea or constipation OBJECTIVE Vital Signs: Current Vital Signs: 24 Hour Range BP: 111/68 (11/30 0800) Temp: 36.8 C (98.2 F) (12/01 799) Pulse: 81 (12/01 799) Respirations: 20 PER MINUTE (12/01 799) SpO2: 98 % (12/01 799) O2 Delivery: None (Room Air) (12/01 799) BP: (104-111)/(63-68) Temp: [36.8 C (98.2 F)] Pulse: [81-87] Respirations: [20 PER MINUTE] SpO2: [98 %] O2 Delivery: None (Room Air) Intensity Pain Scale 0-10 (Pain 1): (not recorded) Scheduled Medications: ascorbic acid (VITAMIN C) tablet 500 mg 500 mg Oral QDAY aspirin chewable tablet 81 mg 81 mg Oral QDAY carvedilol (COREG) tablet 6.25 mg 6.25 mg Oral BID folic acid (FOLVITE) tablet 1 mg 1 mg Oral QDAY insulin aspart U-100 (NOVOLOG FLEXPEN) injection PEN 0-14 Units 0-14 Units Subcutaneous TID w/ meals insulin aspart U-100 (NOVOLOG FLEXPEN) injection PEN 10 Units 10 Units Subcutaneous TID w/ meals insulin glargine (LANTUS SOLOSTAR, BASAGLAR) injection PEN 28 Units 28 Units Subcutaneous QHS lactobacillus rhamnosus GG (CULTURELLE) 15 billion cell capsule 1 capsule 1 capsule Oral BID w/meals lisinopril (PRINIVIL; ZESTRIL) tablet 5 mg [address] (PROTONIX) tablet 40 mg 40 mg Oral QDAY risperiDONE (RISPERDAL) tablet 2 mg 2 mg Oral QHS vitamins, B complex tablet 1 tablet 1 tablet Oral QDAY PRN Medications: ibuprofen Q6H PRN, loperamide QID PRN, OLANZapine Q6H PRN, traZODone QHS PRN 100 mg at 11/29/172035 Mental Status Exam: General/Constitutional: 47 year old Male in good health, with fair hygiene dressed in hospital attire. Behavior: Pleasant, calm and cooperative, has fair eye contact Motor: No evidence of PMR or mild PMA Speech: Normal rate, tone and volume Thought Process: linear and goal directed and logical Thought Content: presently denies SI/HI and desire for self -harm, no delusions voiced Perception: presently denies AVH, not observed attending to internal stimuli, no evidence of paranoia thought process Associations: no loose associations Mood: "Bad depression" Affect: restricted, mood congruent,dysphoric Insight/Judgement: fair / fair Orientation: clear sensorium Recent and remote memory: intact Attention span and concentration: appropriate for conversation Language: fluent, Czech speaking Fund of knowledge and vocabulary: appropriate Musculoskeletal: walks unassisted without difficulty Viola Monahan, DO Associated attestation - Gabriel Stover MD - 11/30/2017 1:47 PM CDT Formatting of this note may be different from the original. ATTESTATION I personally performed the healy portions of the E/M visit, discussed case with resident and concur with resident documentation of history, physical exam, assessment, and treatment plan unless otherwise noted. Staff name: Gabriel Stover MD Date: 11/30/2017 * Nolan Irvin RN - 11/29/2017 8:35 PM CDT Patient requested medication for sleep. PRN Melatonin given as ordered * Marisol Hand RN - 11/29/2017 7:09 PM CDT Chart check performed. * Cammy Maurer RN - 11/29/2017 1:55 PM CDT Chart check completed. * Jeronimo Logan MD - 11/29/2017 9:22 AM CDT Formatting of this note may be different from the original. Psychiatric Progress Note LOS: 2 days Voluntary/Involuntary Status: voluntary Guardian? none MEDICATIONS Current Psychotropic Medications: 1. Risperidone 2mg QHS 2. Trazodone 100mg QHS PRN 3. Olanzapine 2.5mg Q6H PRN ASSESSMENT AND DIAGNOSES 47yo M with hx of paranoid delusions and depression presenting to inpatient psychiatry after suicide attempt by tylenol overdose. Continues to endorse suicidal ideations today. Requires further stabilization. 1. Schizophrenia vs Delusional Disorder 2. MDD, recurrent, severe, with psychotic features PLAN -Continue Risperidone 2mg qhs -Zyprexa 2.5mg Q6h prn for agitation -Consider SSRI initiation for depressive symptoms. -MDCF for hyperglycemia -Metabolic monitoring labs ordered, A1c and Lipid Profile. -Reece Milieu -Continue current medications for medical conditions. -SW interventions for dispo planning if needed. Disposition: continue admission to in psychiatry, likely discharge home to daughter and mother when stable. Discussed with Dr. Stover. SUBJECTIVE Pt seen in his room this morning. He reports "so so" mood and still is having thoughts of suicide, reporting he feels the same as when he overdosed on Tylenol. Reports poor sleep last night as he was waking up off and on. Denies current HI/AVH at this time. No other complaints. REVIEW OF SYSTEMS Negative for headache, positive for difficulty sleeping. OBJECTIVE Vital Signs: Current Vital Signs: 24 Hour Range BP: 105/57 (11/30 799) Temp: 36.8 C (98.2 F) (11/30 799) Pulse: 65 (11/30 0700) Respirations: 16 PER MINUTE (11/30 799) SpO2: 96 % (11/30 799) O2 Delivery: None (Room Air) (11/30 799) BP: (105-106)/(57-93) Temp: [36.8 C (98.2 F)] Pulse: [65-88] Respirations: [16 PER MINUTE] SpO2: [96 %] O2 Delivery: None (Room Air) Intensity Pain Scale 0-10 (Pain 1): (not recorded) Scheduled Medications: ascorbic acid (VITAMIN C) tablet 500 mg 500 mg Oral QDAY aspirin chewable tablet 81 mg 81 mg Oral QDAY carvedilol (COREG) tablet 6.25 mg 6.25 mg Oral BID folic acid (FOLVITE) tablet 1 mg 1 mg Oral QDAY insulin aspart U-100 (NOVOLOG FLEXPEN) injection PEN 0-7 Units 0-7 Units Subcutaneous ACHS insulin aspart U-100 (NOVOLOG FLEXPEN) injection PEN 10 Units 10 Units Subcutaneous TID w/ meals insulin glargine (LANTUS SOLOSTAR, BASAGLAR) injection PEN 28 Units 28 Units Subcutaneous QHS lactobacillus rhamnosus GG (CULTURELLE) 15 billion cell capsule 1 capsule 1 capsule Oral BID w/meals lisinopril (PRINIVIL; ZESTRIL) tablet 5 mg 5 mg Oral QDAY pantoprazole DR (PROTONIX) tablet 40 mg 40 mg Oral QDAY risperiDONE (RISPERDAL) tablet 2 mg 2 mg Oral QHS vitamins, B complex tablet 1 tablet 1 tablet Oral QDAY PRN Medications: ibuprofen Q6H PRN, loperamide QID PRN, OLANZapine Q6H PRN, traZODone QHS PRN Mental Status Exam: General/Constitutional: Pt appears stated age, with fair hygiene, and in no acute distress Eye Contact: good Behavior: calm and cooperative Speech: nl rate/tone/volume Mood: "so so" Affect: restricted, mood congruent Thought Process: linear and goal oriented Thought Content: endorses SI at this time, no plan given, denies HI Perception: denies auditory or visual hallucinations. No evidence of delusions. Associations: intact Insight: fair Judgement: fair Orientation: AAOX4 Recent and remote memory: intact per interview Attention span and concentration: intact per interview Cognition: intact Language: Czech Fund of knowledge/vocabulary: full Gait: Normal gait with normal arm swing Focused Physical Exam: Musculoskeletal: moves all extremities with ease Neuro: alert, no acute distress, no tremors Jeronimo Logan MD Associated attestation - Gabriel Stover MD - 11/29/2017 1:47 PM CDT Formatting of this note may be different from the original. ATTESTATION I personally performed the healy portions of the E/M visit, discussed case with resident and concur with resident documentation of history, physical exam, assessment, and treatment plan unless otherwise noted. Staff name: Gbariel Stover MD Date: 11/29/2017 * Marisol Hand RN - 11/29/2017 12:26 AM CDT Per Chart Audit patient needs an order for HgA1C & FLP. * Nolan Irvin RN - 11/28/2017 9:10 PM CDT Patient requested medication for sleep. PRN Trazodone given as ordered * Marisol Hand RN - 11/28/2017 7:14 PM CDT Chart check performed. * Renetta Martin, OT - 11/28/2017 9:00 AM CDT OCCUPATIONAL THERAPY ADULT PSYCH DAILY TREATMENT NOTE NAME:Krunal Bertrand :1970 AGE: 47 y.o. ADMISSION DATE: 11/27/2017 DAYS ADMITTED: LOS: 1 day Date of Service: 11/28/17 Patient seen x1 this date. Documentation reflects all daily treatment sessions. Pt seen in 0900 OT group on: Goal Setting and anxiety management techniques Affect: Anxious and Sad Eye Contact: WNL Interaction: Read aloud when was requested to Responded briefly when was directly addressed Responded when it was patient's turn to speak Activity Level: Patient tolerated full treatment session, remaining seated at table with peers entire time Concentration: Adequate attention span Comments: Adequate participation Engaged Patient expressed appreciation Pleasant Pt endorses that he may need to "be placed somewhere" for a period of time because "I think I need it..." Spoke of 's passing 7 years ago - and main coping strategy is still "just the TV..." Plan: OT 5x/week for self management Recommend: continued education in symptom management and community based resources Therapist: Renetta Pastrana, OTR [id number] Date: 11/28/2017 * Florecita Bean, OT - 11/28/2017 8:38 AM CDT OCCUPATIONAL THERAPY ADULT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 injection PEN Inject 10 Units under the skin three times daily with meals. insulin glargine (LANTUS SOLOSTAR, BASAGLAR) 100 unit/mL (3 mL) injection PEN Inject 28 Units under the skin at bedtime daily. [] lactobacillus rhamnosus GG (CULTURELLE) 15 billion cell cpSP capsule Take 1 capsule by mouth as directed twice daily with meals for 2 days. lisinopril (PRINIVIL; ZESTRIL) 5 mg tablet Take 1 tablet by mouth daily. loperamide (IMODIUM A-D) 2 mg capsule Take 2 capsules by mouth initially, followed by 1 capsule by mouth after each loose stool up to a maximum of 8 tablets in [address] (PROTONIX) 40 mg tablet Take 1 tablet by mouth daily. vitamins, B complex tab Take 1 tablet by mouth daily. ziprasidone (GEODON) 20 mg capsule Take 1 capsule by mouth twice daily with meals. Review of Systems: Complete review of system performed. Complains of feeling fatigued but no fever or chills. Denies of any shortness of breath or chest pain. Physical Exam: Vital Signs: Last Filed In 24 Hours Vital Signs: 24 Hour Range BP: 101/69 (12/07 799) Temp: 36.7 C (98.1 F) (12/07 799) Pulse: 68 (12/07 799) Respirations: 18 PER MINUTE (12/07 799) SpO2: 98 % (12/07 799) O2 Delivery: None (Room Air) (12/07 799) BP: (101-107)/(67-69) Temp: [36.7 C (98.1 F)] Pulse: [68-102] Respirations: [18 PER MINUTE] SpO2: [98 %] O2 Delivery: None (Room Air) General: Alert, cooperative, no distress, appears stated age Head: Normocephalic, without obvious abnormality, atraumatic Eyes: Conjunctivae pink and un-icteric sclera. PERRL, EOMs intact. Throat: Lips, mucosa and tongue normal. Teeth and gums normal Neck: Supple, symmetrical, trachea midline, no adenopathy, thyroid: no enlargement/tenderness/nodules, no carotid bruit and no JVD Lungs: Clear to auscultation bilaterally Heart: Regular rate and rhythm, S1, S2 normal, no murmur, click rub or gallop Abdomen: Soft, non-tender. Bowel sounds normal. No masses. No organomegaly. Extremities: Extremities normal, atraumatic, no cyanosis or edema Integumentary system: no rash or skin lesions noted Pulses: 2+ and symmetric, all extremities RESEARCH PROGRAM COORDINATOR:alert and oriented to PPT, no focal Neurologic deficits. Lab/Radiology/Other Diagnostic Tests: 24-hour labs: Results for orders placed or performed during the hospital encounter of (from the past 24 hour(s)) POC GLUCOSE Collection Time: 12/05/17 7:42 PM Result Value Ref Range Glucose, POC 206 (H) 70 - 100 MG/DL POC GLUCOSE Collection Time: 12/06/17 8:00 AM Result Value Ref Range Glucose, POC 90 70 - 100 MG/DL POC GLUCOSE Collection Time: 12/06/17 11:35 AM Result Value Ref Range Glucose, POC 233 (H) 70 - 100 MG/DL LIVER FUNCTION PANEL Collection Time: 12/06/17 12:18 PM Result Value Ref Range Total Bilirubin 0.3 0.3 - 1.2 MG/DL Bilirubin, Direct <0.1 <0.4 MG/DL Albumin 3.9 3.5 - 5.0 G/DL Alk Phosphatase 81 25 - 110 U/L AST (SGOT) 18 7 - 40 U/L ALT (SGPT) 36 7 - 56 U/L Total Protein 6.7 6.0 - 8.0 G/DL POC GLUCOSE Collection Time: 12/06/17 5:03 PM Result Value Ref Range Glucose, POC 306 (H) 70 - 100 MG/DL FSBS (Manual): (!) 233 (12/06/17 1205) MD Kip Martinez Abebe MD Department of Internal Medicine, Hospitalist [phone] in this encounter Miscellaneous Notes * Case Mgmt DC Plan - Mervat Monique - 12/09/2017 2:19 PM CDT CYBER SOFTWARE ENGINEER note: Discharge to home today has been arranged with [facility] [employer]. Patient will be picked up today sometime between [id number] and transported to residence. Trip reference # [id number]. If you have questions regarding this ride you may call [facility] at . Mervat Monique Complaint Operator Metal Can Inspector * Case Mgmt DC Plan - Monique Alonson - 12/09/2017 2:02 PM CDT Formatting of this note may be different from the original. Case Management Progress Note NAME:Krunal Bertrand :1969 AGE: 47 y.o. ADMISSION DATE: 11/27/2017 DAYS ADMITTED: LOS: 12 days Todays Date: 12/09/2017 Plan DC today, to home in [place], [place]. Patient reports to at 1400 that he has no ride home; Mervat SANDOVAL, is setting up transport via [employer] [place] Medicaid. Follow up care is with [facility]. Interventions ? Support Support: Pt/Family Updates re:POC or DC Plan AGUEDA met with patient 1:1 re: his DC planning. ? Info or Referral Information or Referral to Community Resources: Mental Health Resources [facility]. ? Discharge Planning Discharge Planning: Independent/Assisted Living, Transportation Arrangements and/or Resources AGUEDA has requested that Mervat SANDOVAL, schedule ride home, via patient's [facility] Medicaid. ? Medication Needs Medication Needs: No Needs Identified ? Financial Financial: No Needs Identified ? Legal Legal: No Needs Identified ? Other Other/None: No needs identified Disposition ? Expected Discharge Date Expected Discharge Date: 12/09/17 ? Transportation Does the patient need discharge transport arranged?: No Transportation Name, Phone and Availability #1: Lanie Betancourt, phone: Does the patient use Medicaid Transportation?: No ? Next Level of Care (Acute Psych discharges only) Facility/Provider Name: [facility], Katty Grover APRN Facility/Provider Facility/Provider Patient Authorization signed: N/A ? Discharge Disposition Home Durable Medical Equipment No service has been selected for the patient. Destination No service has been selected for the patient. Home Care No service has been selected for the patient. Dialysis/Infusion No service has been selected for the patient. Brianda Alonso, [facility] [employer] Machine Pg. *[phone] * Psychiatry Summary of Care - Shavon Mckeon MD - 12/09/2017 1:59 PM CDT Formatting of this note may be different from the original. Psychiatry Summary of Care Date of Service: 12/09/2017 Name: Krunal Bertrand : 1970 Krunal Bertrand is a 47 y.o. male. Admit date: 11/27/2017 Discharge date: Attending Physician: Galindo De Leon DO *This document is to supplement the transfer of care, Discharge Summary to follow. Inpatient Care Reason for Inpatient admission: Schizoaffective Disorder, Depressive Type Surgical Procedures: None Significant Diagnostic Studies and Procedures: noted in brief hospital course Discharge Diagnoses: Active Problems: Schizoaffective disorder, depressive type (HCC) Suicide attempt (HCC) Tobacco Use: History Smoking Status Current Every Day Smoker Packs/day: 0.50 Years: 15.00 Types: Cigarettes Smokeless Tobacco Never Used Alcohol use: History Alcohol Use No Post-Discharge/Patient self-management Studies pending at discharge: none Contact information for obtaining results of studies pending at discharge: Department of Psychiatry [phone] Advanced Care Plan Advance directives: Healthcare Directive: No, patient does not have a healthcare directive Would patient like to fill out a (a new) Healthcare Directive?: No, patient declined Psych Advance Directive (Psych unit only): No, patient does not have a Psych Advance Directive Reason for not providing advance directive if applicable: N/A Contact Information/Plan for Follow-Up2 20/01 Contact info: Department of Psychiatry [phone] Future Appointments Future Appointments Date Time Provider Department Center 02/13/2018 1:30 PM Kwaku Montiel MD [facility] Primary Care Physician: No Pcp, Na PCP Unknown Medication List The following medications were removed from your list. This list includes medications discontinued this stay and those removed from your prior med list in our system amoxicillin/K clavulanate 875/125 mg tablet Commonly known as: AUGMENTIN ziprasidone 20 mg capsule Commonly known as: GEODON Your Current Medications ascorbic acid 500 mg tablet Commonly known as: VITAMIN C Take 1 tablet by mouth daily. aspirin 81 mg chewable tablet Chew 1 tablet by mouth daily. Take with food. carvedilol 6.25 mg tablet Commonly known as: COREG Take 1 tablet by mouth twice daily. Take with food. What changed: medication strength escitalopram oxalate 10 mg tablet Commonly known as: LEXAPRO Take 1 tablet by mouth daily. Start taking on: 12/10/2017 folic acid 1 mg tablet Commonly known as: FOLVITE Take 1 tablet by mouth daily. insulin aspart U-100 100 unit/mL injection PEN Commonly known as: NOVOLOG FLEXPEN Inject 10 Units under the skin three times daily with meals. insulin glargine 100 unit/mL (3 mL) injection PEN Commonly known as: LANTUS SOLOSTAR, BASAGLAR Inject 26 Units under the skin at bedtime daily. What changed: how much to take lactobacillus rhamnosus GG 15 billion cell Cpsp capsule Commonly known as: CULTURELLE Take 1 capsule by mouth as directed twice daily with meals. lisinopril 5 mg tablet Commonly known as: PRINIVIL; ZESTRIL Take 1 tablet by mouth daily. loperamide 2 mg capsule Commonly known as: IMODIUM A-D Take 2 capsules by mouth initially, followed by 1 capsule by mouth after each loose stool up to a maximum of 8 tablets in 24 hours. paliperidone palmitate(+) 156 mg/1 mL Syrg injection Commonly known as: INVEGA SUSTENNA Inject 1 mL into the muscle once for 1 dose. Due 12/16/17 Start taking on: 12/16/[address] 40 mg tablet Commonly known as: PROTONIX Take 1 tablet by mouth daily. traZODone 100 mg tablet Commonly known as: DESYREL Take 1 tablet by mouth at bedtime daily. vitamins, B complex Tab Take 1 tablet by mouth daily. Where to Get Your Medications These medications were sent to [facility] ([facility] ) [address] [place] [address]. [place] [address], [facility] [address] Hours: M-F 7am-9pm Sat & Sun 9am-5pm Phone: carvedilol 6.25 mg tablet escitalopram oxalate 10 mg tablet insulin aspart U-100 100 unit/mL injection PEN insulin glargine 100 unit/mL (3 mL) injection PEN lactobacillus rhamnosus GG 15 billion cell Cpsp capsule lisinopril [address] 40 mg tablet traZODone 100 mg tablet You can get these medications from any pharmacy Bring a paper prescription for each of these medications paliperidone palmitate(+) 156 mg/1 mL Syrg injection * Care Plan - Estrellita Chicas RN - 12/09/2017 9:28 AM CDT Problem: Discharge Planning Goal: Participation in plan of care Outcome: Goal Ongoing Patient is encouraged to attend all discharge plan meetings. Goal: Knowledge regarding plan of care Outcome: Goal Ongoing Patient will be given an opportunity to ask questions related to discharge plans. Goal: Prepared for discharge Outcome: Goal Ongoing Patient will be fully prepared related to discharge plans. * Care Plan - Florecita Lucio RN - 12/08/2017 10:00 PM CDT Problem: Discharge Planning Goal: Participation in plan of care Outcome: Goal Ongoing Attends meals. Compliant with medications. Isolative to room this jhonny with no interaction in milieu. Goal: Knowledge regarding plan of care Outcome: Goal Ongoing Limited insight. Lack of motivation for treatment and positive change. Goal: Prepared for discharge Outcome: Goal Ongoing Meeting with treatment team daily. * Care Plan - Jose Rios RN - 12/08/2017 1:04 PM CDT Problem: Discharge Planning Goal: Participation in plan of care Outcome: Goal Ongoing Pt taking meds as ordered. Asking appropriate questions regarding his treatment. Goal: Knowledge regarding plan of care Outcome: Goal Ongoing POC discussed with Pt daily by nursing and physicians * Discharge Instructions - Brianda Alonso - 12/08/2017 11:18 AM CDT Case Management Discharge Instructions: Resume care at [facility], phone: , with your medication provider, Katty Grover APRN. Appointment Information: Next appointment: Katty Grover APRN on 12/11/17 @ 11:20 p.m. Other Follow Up Information: National Suicide Prevention Lifeline: . We can all help prevent suicide. The [facility] provides 20/01, free and confidential support for people in distress, prevention and crisis resources for you or your loved ones, and best practices for professionals. * Care Plan - Simón Gonsales RN - 12/07/2017 3:18 PM CDT Problem: Discharge Planning Goal: Participation in plan of care Outcome: Goal Ongoing Pt has been calm and cooperative. Mood and behaviors have been stable. Eating and drinking well. Compliant with medications. Meeting with tx team daily. Problem: Violence, self/other-directed, Risk of Goal: Absence of violence Outcome: Goal Ongoing Pt calm and cooperative * Care Roxane - Marisol Hand RN - 12/06/2017 11:06 PM CDT Problem: Discharge Planning Goal: Participation in plan of care Outcome: Goal Ongoing Patient has been calm and cooperative. Continue to assess and monitor for safety. Goal: Knowledge regarding plan of care Outcome: Goal Ongoing Instructions provided as needed. Goal: Prepared for discharge Outcome: Goal Ongoing In progress. Problem: Violence, self/other-directed, Risk of Goal: Absence of violence Outcome: Goal Ongoing No violence toward self or others. * Care Plan - Florecita Lucio RN - 12/06/2017 10:51 AM CDT Problem: Discharge Planning Goal: Participation in plan of care Outcome: Goal Ongoing Patient compliant with vital signs, breakfast and medications. Attends unit activities and groups with appropriate behavior with peers and staff but quiet and guarded. Goal: Knowledge regarding plan of care Outcome: Goal Ongoing Limited insight. Lack of motivation for treatment and positive change. Goal: Prepared for discharge Outcome: Goal Ongoing Meeting with treatment team daily. Problem: Violence, self/other-directed, Risk of Goal: Absence of violence Outcome: Goal Ongoing Denies SI, HI. No harm to self or others on unit. * Ritesh Betts - Marisol Hand RN - 12/05/2017 11:46 PM CDT Problem: Discharge Planning Goal: Participation in plan of care Outcome: Goal Ongoing Patient has been calm and cooperative. Continue to monitor for safety. Goal: Knowledge regarding plan of care Outcome: Goal Ongoing Instructions provided as needed. Goal: Prepared for discharge Outcome: Goal Ongoing In progress. Continue to assess and educate as needed. Problem: Violence, self/other-directed, Risk of Goal: Absence of violence Outcome: Goal Ongoing No violence toward self or others. Continue to monitor for safety. * Care Plan - Kelvin Mckeon RN - 12/05/2017 10:15 AM CDT Problem: Discharge Planning Goal: Participation in plan of care Outcome: Goal Ongoing Meeting with treatment team daily, attending AM groups. Medication complaint. Goal: Prepared for discharge Outcome: Goal Ongoing Ongoing. Problem: Violence, self/other-directed, Risk of Goal: Absence of violence Outcome: Goal Ongoing No violence to self or others. * Care Roxane - Marisol Hand RN - 12/04/2017 11:42 PM CDT Problem: Discharge Planning Goal: Participation in plan of care Outcome: Goal Ongoing Patient has been isolative in bed. He took his medications as scheduled. He has had no complaint. Goal: Knowledge regarding plan of care Outcome: Goal Ongoing Instructions provided as needed. Goal: Prepared for discharge Outcome: Goal Ongoing In progress. Problem: Violence, self/other-directed, Risk of Goal: Absence of violence Outcome: Goal Ongoing No violence toward self or others. * Care Plan - Teresa Bland RN - 12/03/2017 10:46 PM CDT Problem: Discharge Planning Goal: Participation in plan of care Outcome: Goal Ongoing Pt continues to feel suicidal and paranoid that the mafia is after him.Sad and disturbed.Doesn't feel safe while here as well.Reassured pt but was dismissive.Isolated most of the evening.Was med compliant. * Care Roxane - Chelle Coffey RN - 12/03/2017 2:03 PM CDT Problem: Discharge Planning Goal: Prepared for discharge Outcome: Goal Ongoing Pt still concerned that the Mafia is after him. * Care Roxane - Chelle Coffey RN - 12/03/2017 2:02 PM CDT Problem: Violence, self/other-directed, Risk of Goal: Absence of violence Outcome: Goal Ongoing Pt voiced no threats of violence towards self or others. * Ritesh Betts - Chelle Coffey RN - 12/03/2017 2:01 PM CDT Problem: Discharge Planning Goal: Participation in plan of care Outcome: Goal Ongoing Pt more vocal and forth-coming. * Ritesh Betts - Kamar Aly RN - 12/02/2017 9:08 PM CDT Problem: Discharge Planning Goal: Participation in plan of care Outcome: Goal Ongoing Pt meeting with treatment team daily. Goal: Prepared for discharge Outcome: Goal Ongoing Discharge planning ongoing. Problem: Violence, self/other-directed, Risk of Goal: Absence of violence Outcome: Goal Ongoing No violent behavior directed at self or others this evening. * Case Mgmt DC Plan - CelesteMoniquen - 12/02/2017 2:05 PM CDT Case Management Admission and Psychosocial Assessment NAME:Krunal Bertrand :1969 AGE: 47 y.o. ADMISSION DATE: 11/27/2017 DAYS ADMITTED: LOS: 5 days Todays Date: 12/02/2017 Source of Information: For completion of this SW Psychosocial Assessment: * AGUEDA has reviewed patient's EMR. * AGUEDA has met with patient, with the treatment team. * AGUEDA has met with patient 1:1. Plan / Intervention: Plan: CM Assessment, Psychosocial Assessment, Assist PRN with SW/NCM Services, Discharge Planning for Home Anticipated Intervention: * AGUEDA has met with patient for purpose of completion of SW Psychosocial Assessment and beginning hospital discharge planning. Patient Address/Phone [address] [facility] [facility] [phone] (home) Emergency Contact Extended Emergency Contact Information Primary Emergency Contact: Lanie Bertrand [facility] [place] Relation: Mother Secondary Emergency Contact: Concetta Bertrand [facility] [place] Relation: Daughter Healthcare Directive Healthcare Directive: No, patient does not have a healthcare directive Would patient like to fill out a (a new) Healthcare Directive?: No, patient declined Psych Advance Directive (Psych unit only): No, patient does not have a Psych Advance Directive Transportation Does the patient need discharge transport arranged?: No Transportation Name, Phone and Availability #1: Lanie Betancourt, phone: Does the patient use Medicaid Transportation?: No Expected Discharge Date Expected Discharge Date: 12/05/17 Living Situation Prior to Admission ? Living Arrangements Type of Residence: Home, independent Living Arrangements: Parent (Patient lives with his mother, in her home.) How many levels in the residence?: 2 Can patient live on one level if needed?: Yes Does residence have entry and/or side stairs?: Yes Assistance needed prior to admit or anticipated on discharge: No Patient reports that his 7 years ago after a marriage of 20+ years. He has a 26 y.o son and a 25 y.o daughter. ? Level of Function Prior level of function: Independent ? Cognitive Abilities Cognitive Abilities: Alert and Oriented, Continue to Assess Indicated the Highest Level of Education: Patient reports he has a 10th grade education. Hx of special education programming all though school. Financial Resources ? Coverage Primary Insurance: Medicaid Secondary Insurance: No insurance Additional Coverage: RX [facility] Medicaid, policy #: [id number] ? Source of Income Source Of Income: SSDI ? Financial Assistance Needed? N/A Psychosocial Needs ? Mental Health Agency name: Patient follows at the [facility] at [address] [place], [place]. . Patient has an appointment for DM on with MACIEJ Nevarez. Pt has not seen his psychiatrist, Dr. Shanae Stewart, for 1 year. AGUEDA Mcarthur scheduled a follow up appointment with Dr. Katty Grover December 09 at 11:40am. Case Managemtent services are not through this office. Mental Health Symptoms: Detachment from reality (delusions) or paranoia, Confused thinking, Excessive fears/worries, Reduced ability to concentrate, Feeling depressed, Inability to cope with daily problems or stress ? Substance Use History Substance Use History Screen: No ? Other Not identified at this time. Current/Previous Services ? PCP None. ? Pharmacy [facility] ([facility]) [address] [facility]. [place] [address] [facility] [id number] ? Durable Medical Equipment Durable Medical Equipment at home: None ? Home Health Receiving home health: No ? Hemodialysis or Peritoneal Dialysis Undergoing hemodialysis or peritoneal dialysis: No ? Tube/Enteral Feeds Receive tube/enteral feeds: No ? Infusion Receive infusions: No ? Private Duty Private duty help used: No ? Home and Community Based Services Home and community based services: No ? Vivek White Vivek White: No ? Hospice Hospice: No ? Outpatient Therapy PT: No OT: No VULNERABILITY RESEARCHER: No ? Correction Facility/Half-Way SNF: No NH: No ? Inpatient Rehab IPR: No ? Long-Term Acute Care Hospital LTACH: No ? Acute Hospital Stay Acute Hospital Stay: Yes Was patient's stay within the last 30 days?: Yes When did patient receive care?: 10/2017 Name of hospital: [facility] Unit Readmission Code Group: 3. Discharge / Transitional Care Plan 3. Discharge / Transitional Care Plan: 3e. Behavioral Health PAC Services Related or Unrelated?: Related Social Work Evaluation Plan Plan Discussed with Patient / Family: Yes Plan Agreed Upon with Patient / Family: Yes Comments: * Patient anticipated to return home to live at time of hospital DC. * Patient anticipated to resume care with [facility] in [place]; follow up appointment has been set up with Dr. Katty Grover for after DC. Optional Assessment Information (e.g. Family background, sexual functioning / significant sexual history, etc.) Legal issues - Denies Strengths - * Patient is capable of independent living * Patient has healthcare insurance * Patient has some family support * Patient is seeking help voluntarily. Brianda Alonso, [facility] [employer] Printer Machine Pg. *[phone] * Care Plan - Cammy Maurer RN - 12/02/2017 10:08 AM CDT Problem: Discharge Planning Goal: Participation in plan of care Outcome: Goal Ongoing Participated in groups and activities. Goal: Knowledge regarding plan of care Outcome: Goal Ongoing Verbalized understanding. Goal: Prepared for discharge Outcome: Goal Ongoing In progress. Problem: Violence, self/other-directed, Risk of Goal: Absence of violence Outcome: Goal Ongoing No SI,HI voiced, no aggression noted. * Care Plan - Kamar Aly RN - 12/01/2017 9:13 PM CDT Problem: Discharge Planning Goal: Participation in plan of care Outcome: Goal Ongoing Pt meeting with treatment team daily. Goal: Prepared for discharge Outcome: Goal Ongoing Discharge planning ongoing. Problem: Violence, self/other-directed, Risk of Goal: Absence of violence Outcome: Goal Ongoing No violent behavior directed at self or others this evening. * Care Coordination-Inpatient - Estrellita Garcia RN - 12/01/2017 1:38 PM CDT Psychiatry Insurance Review No. 1 Insurance Company: [facility] Insurance/Medicaid ID #: [id number] Reference /Authorization # [id number] security services specialist Ronn, completed oral review Approved 2 days 12/01 and 12/02, with last day as 12/02 Next review on Friday, 12/03 * Care Plan - Cammy Maurer RN - 12/01/2017 9:57 AM CDT Problem: Discharge Planning Goal: Participation in plan of care Outcome: Goal Ongoing Participated in groups and activities. Goal: Knowledge regarding plan of care Outcome: Goal Ongoing Verbalized understanding. Goal: Prepared for discharge Outcome: Goal Ongoing In progress. Problem: Violence, self/other-directed, Risk of Goal: Absence of violence Outcome: Goal Ongoing No SI,HI voiced, no aggression noted. * Care Plan - Kamar Aly RN - 11/30/2017 8:24 PM CDT Problem: Discharge Planning Goal: Participation in plan of care Outcome: Goal Ongoing Pt meeting with treatment team daily. Goal: Prepared for discharge Outcome: Goal Ongoing Discharge planning ongoing. Problem: Violence, self/other-directed, Risk of Goal: Absence of violence Outcome: Goal Ongoing No violent behavior directed at self or others this evening. * Care Plan - Florecita Lucio RN - 11/30/2017 12:16 PM CDT Problem: Discharge Planning Goal: Participation in plan of care Outcome: Goal Ongoing Meeting with treatment team daily. Goal: Knowledge regarding plan of care Outcome: Goal Ongoing Limited insight. Lack of motivation for treatment and positive change. Goal: Prepared for discharge Outcome: Goal Ongoing Meeting with treatment team daily. Problem: Thought Process - Altered Goal: Demonstration of organized thought processes Outcome: Goal Achieved Date Met: 11/30/17 Alert and well oriented x4. Able to ask to have needs met appropriately. Problem: Violence, self/other-directed, Risk of Goal: Absence of violence Outcome: Goal Ongoing Denies SI, HI. No harm to self or others on unit. * Care Plan - Cammy Maurer RN - 11/30/2017 11:50 AM CDT Problem: Discharge Planning Goal: Participation in plan of care Outcome: Goal Ongoing Participated in groups and activities. Goal: Knowledge regarding plan of care Outcome: Goal Ongoing Verbalized understanding. Goal: Prepared for discharge Outcome: Goal Ongoing In progress. Problem: Thought Process - Altered Goal: Demonstration of organized thought processes Outcome: Goal Ongoing Able to process information and respond appropriately. Problem: Violence, self/other-directed, Risk of Goal: Absence of violence Outcome: Goal Ongoing No SI,HI voiced, no aggression noted. * Care Plan - Marisol Hand RN - 11/29/2017 8:22 PM CDT Problem: Discharge Planning Goal: Participation in plan of care Outcome: Goal Ongoing Patient is calm and cooperative. He spent time in the living room. Minimal interaction noticed. Continue to monitor for safety. Goal: Knowledge regarding plan of care Outcome: Goal Ongoing Instructions provided as needed. Goal: Prepared for discharge Outcome: Goal Ongoing In progress. Problem: Thought Process - Altered Goal: Demonstration of organized thought processes Outcome: Goal Ongoing Patient's thoughts are organized. Problem: Violence, self/other-directed, Risk of Goal: Absence of violence Outcome: Goal Ongoing No violence toward self or others. * Care Plan - Cammy Maurer RN - 11/29/2017 11:17 AM CDT Problem: Discharge Planning Goal: Participation in plan of care Outcome: Goal Ongoing Pleasant and cooperative, participates in plan of care. Goal: Knowledge regarding plan of care Outcome: Goal Ongoing Verbalized understanding. Goal: Prepared for discharge Outcome: Goal Ongoing In progress. Problem: Thought Process - Altered Goal: Demonstration of organized thought processes Outcome: Goal Ongoing Able to process information and respond appropriately. Problem: Violence, self/other-directed, Risk of Goal: Absence of violence Outcome: Goal Ongoing Denies SI,HI, no aggression noted. * Care Plan - Marisol Hand RN - 11/28/2017 9:11 PM CDT Problem: Discharge Planning Goal: Participation in plan of care Outcome: Goal Ongoing Patient is out on the unit. He is calm, quiet and withdrawn. He took his medications as prescribed. He took a shower. Continue to assess and monitor for safety. Goal: Knowledge regarding plan of care Outcome: Goal Ongoing Instructions provided as needed. * Case Mgmt DC Plan - Floresita Mcarthur - 11/28/2017 3:20 PM CDT Formatting of this note may be different from the original. Case Management Progress Note NAME:Krunal Bertrand :1969 AGE: 47 y.o. ADMISSION DATE: 11/27/2017 DAYS ADMITTED: LOS: 1 day Todays Date: 11/28/2017 Plan Remain inpatient through the weekend. Interventions ? Support Support: Counseling for Psychosocial issues, Counseling for Adaptation to Illness, Pt/Family Updates re:POC or DC Plan ? Info or Referral ? Discharge Planning Discharge Planning: Independent/Assisted Living Covering Agueda participated in team huddle and met with pt with team. Agueda did not complete assessment with pt due to present paranoia and current SI. Pt will remain inpatient through the weekend. Pt 7 years ago. Pt has 2 children. Pt lives with his mother and reports he has a CM, Jimmy. Pt has a 10th grade education and is on disability. Pt stated he used to work at [employer]. Pt reports he has been hospitalized at [facility] in [place], [place], as well as [facility]. Pt is paranoid, thinking the Mob is going to get him and kill his daughter if she shares any information. Pt wants to kill himself. Per chart review, Pt follows at the [facility] at [address], [place]. . Sw contacted the [facility]. Pt has an appointment for DM on 01/05/18 with MACIEJ Nevarez. Pt has not seen his psychiatrist, Dr. Shanae Stewart, for 1 year. Sw scheduled a follow up appointment with Dr. Katty Grover December 09 at 11:40am. Case Managemtent services are not through this office. Sw left a voicemail with [facility] to inquire if pt CM is through their office. Address: [address] . Primary Sw will continue to follow for discharge planning. ? Medication Needs ? Financial ? Legal ? Other Disposition ? Expected Discharge Date Expected Discharge Date: 12/01/17 ? Transportation ? Next Level of Care (Acute Psych discharges only) ? Discharge Disposition Durable Medical Equipment No service has been selected for the patient. Destination No service has been selected for the patient. Home Care No service has been selected for the patient. Dialysis/Infusion No service has been selected for the patient. Floresita Mcarthur LMSW *[id number] * Care Plan - Chelle Coffey RN - 11/28/2017 3:03 PM CDT Problem: Thought Process - Altered Goal: Demonstration of organized thought processes Outcome: Goal Ongoing Thoughts are pretty ;loose, still thinks the mafia is after him. * Care Plan - Chelle Coffey RN - 11/28/2017 3:00 PM CDT Problem: Thought Process - Altered Goal: Demonstration of organized thought processes Outcome: Goal Ongoing Pt presents as vaguely paranoid. * Med Student Progress Note - Roddy Price 11/28/2017 1:41 PM CDT Phone call with Jimmy (Sales Development Manager): Jimmy has known Krunal for 3 years For a year now he's been under a heavy impression that the mafia has been after him. Jimmy says he has noticed it is getting much worse since he's known him. This has caused many hospitalizations Jimmy mentioned Krunal has had several thoughts of suicide but doesn't know of any previous attempts besides his most recent attempt that brought him here at [facility] He reported Krunal is not good about taking his medication. He does not take medications at all and refuses it if his family or Jimmy try to give it to him His family has tried to help him but Krunal refuses treatment or any help because of his paranoia of the mafia coming to get him. He sometimes believes his family is working with the mafia. * Med Student Progress Note - Roddy Price - 11/28/2017 12:23 PM CDT Jimmy (electronic equipment trades worker) - [phone] His mom reported she never sees him taking his medicine. She said he has prescriptions for Haldol and Fluoxetine His daughter was trying to get help on the phone but Krunal thought she was on the phone with the mafia trying to turn him in. This conflicts with the story Krunal told us From this phone call it is evident Krunal needs further treatment and evaluation. Continue with plan * Care Coordination-Inpatient - Jess Kothari - 11/28/2017 11:23 AM CDT Psychiatry Insurance Review No. 1 Insurance Company: [facility] Insurance/Medicaid ID #: [id number] Reference /Authorization # [id number] security services specialist Ronn Approved 4 inpatient days 11/27 to 11/30 Next review on Friday, 12/01 * Care Coordination-Inpatient - Jess Kothari - 11/28/2017 10:57 AM CDT Psychiatry Insurance Review No. 1 Insurance Company: [facility] Insurance/Medicaid ID #: [id number] Reference /Authorization # p Admission review faxed to Darleen Brody at [phone] * Med Student H&P - Roddy Price - 11/28/2017 9:53 AM CDT Formatting of this note may be different from the original. Medical Student History and Physical Krunal Bertrand Admission Date: 11-21-2017 Chief Complaint: Suicide attempt History of Present Illness: Mr. Bertrand is a 47 y.o male who is in because of a suicide attempt by overdosing on tylenol.He was found unresponsive by his mother and transered to where he was diagnosed with DKA and acute liver injury upon presenting to the hospital, was stabilized, and transferred to the psych unit. He claims he is suicidal because the mafia is after him and he would rather kill himself than risk being caught by the mafia. He claims they have been after him for a few years now and are starting to threaten his family. He has had multiple suicidal ideations and attempts in the past that resulted in hospitalizations. He still is suicidal and reports he will kill himself upon being released from the hospital. Patient screened positive for depression and anxiety PMH: T1DM Schizophrenia Bipolar MDD Tonsillectomy FH: Father () had diabetes Mother and children are in good health SH: He lives in [place], [place] in a house with his mom and brother. His 7 years ago. He has a 26 y.o son and a 25 y.o daughter. He is unemployed but on disability. His highest level of education is 10th grade and was special ed all throughout his childhood. He has smoked a half pack of cigarettes a day since 17 years of age. Denied any use of alcohol or recreational drugs. His hobbies are fishing and hunting, both of which he hasn't done in a while. The home does contain firearms but the mother is the only one who has access to them Immunizations: Patient reported he was up to date on immunizations but they are not on file Allergies: Cephalosporins Medications Scheduled Meds: ascorbic acid (VITAMIN C) tablet 500 mg 500 mg Oral QDAY folic acid (FOLVITE) tablet 1 mg 1 mg Oral QDAY heparin (porcine) PF syringe 5,000 Units 5,000 Units Subcutaneous Q8H [START ON 11/23/2017] pantoprazole (PROTONIX) injection 40 mg 40 mg Intravenous QDAY phytonadione (VITAMIN K) injection 10 mg 10 mg Subcutaneous QDAY piperacillin/tazobactam (ZOSYN) 3.375 g/50 mL iso-osmotic IVPB 3.375 g Intravenous Q6H* polyethylene glycol 3350 (MIRALAX) packet 17 g 1 packet Oral BID rifAXIMin (XIFAXAN) tablet 550 mg 550 mg Oral BID vitamins, B complex tablet 1 tablet 1 tablet Oral QDAY Continuous Infusions: acetylcysteine (ACETADOTE) 4 g in sodium chloride 0.45% (1/2NS) 1,000 mL IVPB 6.25 mg/kg/hr (11/22/17 1237) insulin regular (NOVOLIN R) 100 Units in sodium chloride 0.9% (NS) 100 mL IV drip (std conc) 2 Units/hr (11/22/17 0820) norepinephrine (LEVOPHED) 4 mg in dextrose 5% (D5W) 250 mL IV drip (std conc ) Stopped (11/22/17 0115) Review of Systems: A 14 point ROS was conducted. Patient was positive for nausea, fatigue, night sweats, weight loss, headache, lightheadedness, visual loss, stress, anxiety, depression, and mood changes. Negative for all else Physical Exam: N/A Lab/Radiology/Other Diagnostic Tests: ACETAMINOPHEN LEVEL Collection Time: 11/21/17 1:55 AM Result Value Ref Range Acetaminophen 36.0 (H) <20.1 MCG/ML COMPREHENSIVE METABOLIC PANEL Collection Time: 11/21/17 1:55 AM Result Value Ref Range Sodium 143 137 - 147 MMOL/L Potassium 2.8 (L) 3.5 - 5.1 MMOL/L Chloride 119 (H) 98 - 110 MMOL/L Glucose 203 (H) 70 - 100 MG/DL Blood Urea Nitrogen 17 7 - 25 MG/DL Creatinine 1.11 0.4 - 1.24 MG/DL Calcium 7.9 (L) 8.5 - 10.6 MG/DL Total Protein 4.9 (L) 6.0 - 8.0 G/DL Total Bilirubin 0.2 (L) 0.3 - 1.2 MG/DL Albumin 2.8 (L) 3.5 - 5.0 G/DL Alk Phosphatase 103 25 - 110 U/L AST (SGOT) 822 (H) 7 - 40 U/L CO2 14 (L) 21 - 30 MMOL/L ALT (SGPT) 675 (H) 7 - 56 U/L Anion Gap 10 3 - 12 eGFR Non >60 >60 mL/min eGFR >60 >60 mL/min LACTIC ACID (BG - RAPID LACTATE) Collection Time: 11/21/17 1:55 AM Result Value Ref Range Lactic Acid,BG 2.9 (H) 0.5 - 2.0 MMOL/L PHOSPHORUS Collection Time: 11/21/17 1:55 AM Result Value Ref Range Phosphorus <1.0 (LL) 2.0 - 4.0 MG/DL CBC AND DIFF Collection Time: 11/21/17 1:55 AM Result Value Ref Range White Blood Cells 24.0 (H) 4.5 - 11.0 K/UL RBC 4.14 (L) 4.4 - 5.5 M/UL Hemoglobin 12.6 (L) 13.5 - 16.5 GM/DL Hematocrit 36.8 (L) 40 - 50 % MCV 89.0 80 - 100 FL MCH 30.5 26 - 34 PG MCHC 34.3 32.0 - 36.0 G/DL RDW 14.1 11 - 15 % Platelet Count 184 150 - 400 K/UL MPV 8.4 7 - 11 FL Neutrophils 93 (H) 41 - 77 % Lymphocytes 6 (L) 24 - 44 % Monocytes 1 (L) 4 - 12 % Eosinophils 0 0 - 5 % Basophils 0 0 - 2 % Absolute Neutrophil Count 22.30 (H) 1.8 - 7.0 K/UL Absolute Lymph Count 1.50 1.0 - 4.8 K/UL Absolute Monocyte Count 0.20 0 - 0.80 K/UL Absolute Eosinophil Count 0.00 0 - 0.45 K/UL Absolute Basophil Count 0.00 0 - 0.20 K/UL PROTIME INR (PT) Collection Time: 11/21/17 1:55 AM Result Value Ref Range INR 1.2 0.8 - 1.2 PTT (APTT) Collection Time: 11/21/17 1:55 AM Result Value Ref Range APTT 22.6 21.0 - 39.0 SEC LIPID PROFILE Collection Time: 11/21/17 1:55 AM Result Value Ref Range Cholesterol 137 <200 MG/DL Triglycerides 117 <150 MG/DL HDL 23 (L) >40 MG/DL LDL 89 <100 MG/DL VLDL 23 MG/DL Non HDL Cholesterol 114 MG/DL AMYLASE Collection Time: 11/21/17 1:55 AM Result Value Ref Range Amylase 588 (H) 24 - 100 U/L LIPASE Collection Time: 11/21/17 1:55 AM Result Value Ref Range Lipase 935 (H) 11 - 82 U/L MAGNESIUM Collection Time: 11/21/17 1:55 AM Result Value Ref Range Magnesium 1.9 1.6 - 2.6 mg/dL GGTP Collection Time: 11/21/17 1:55 AM Result Value Ref Range GGTP 40 9 - 64 U/L LDH-LACTATE DEHYDROGENASE Collection Time: 11/21/17 1:55 AM Result Value Ref Range Lactate Dehydrogenase 830 (H) 100 - 210 U/L ALCOHOL LEVEL Collection Time: 11/21/17 1:55 AM Result Value Ref Range Alcohol <10 MG/DL IRON + BINDING CAPACITY + %SAT+ FERRITIN Collection Time: 11/21/17 1:55 AM Result Value Ref Range Iron 64 50 - 185 MCG/DL Iron Binding-TIBC 289 270 - 380 MCG/DL % Saturation 22 (L) 28 - 42 % Ferritin 404 (H) 30 - 300 NG/ML ABO/RH(D) Collection Time: 11/21/17 1:55 AM Result Value Ref Range ABO/RH(D) A POS AMMONIA Collection Time: 11/21/17 1:55 AM Result Value Ref Range Ammonia 51 (H) 9 - 35 MCMOL/L FIBRINOGEN Collection Time: 11/21/17 1:55 AM Result Value Ref Range Fibrinogen 222 200 - 400 MG/DL POC GLUCOSE Collection Time: 11/21/17 1:55 AM Result Value Ref Range Glucose, POC 329 (H) 70 - 100 MG/DL BETA HYDROXYBUTYRATE (KETONES) Collection Time: 11/21/17 1:55 AM Result Value Ref Range Beta Hydroxybutyrate 0.5 (H) <0.3 MMOL/L OSMOLALITY Collection Time: 11/21/17 1:55 AM Result Value Ref Range Osmolality 301 280 - 307 MOSMOL/KG AMPHETAMINES-URINE RANDOM Collection Time: 11/21/17 2:00 AM Result Value Ref Range Amphetamines NEG NEG-NEG BARBITURATES-URINE RANDOM Collection Time: 11/21/17 2:00 AM Result Value Ref Range Barbiturates,Urine NEG NEG-NEG BENZODIAZEPINES-URINE RANDOM Collection Time: 11/21/17 2:00 AM Result Value Ref Range Benzodiazepines POS (A) NEG-NEG CANNABINOIDS-URINE RANDOM Collection Time: 11/21/17 2:00 AM Result Value Ref Range THC NEG NEG-NEG COCAINE-URINE RANDOM Collection Time: 11/21/17 2:00 AM Result Value Ref Range Cocaine-Urine NEG NEG-NEG OPIATES-URINE RANDOM Collection Time: 11/21/17 2:00 AM Result Value Ref Range Opiates-Urine NEG NEG-NEG PHENCYCLIDINES-URINE RANDOM Collection Time: 11/21/17 2:00 AM Result Value Ref Range Phencyclidine (PCP) NEG NEG-NEG URINALYSIS DIPSTICK Collection Time: 11/21/17 2:00 AM Result Value Ref Range Color,UA YELLOW Turbidity,UA CLEAR CLEAR-CLEAR Specific [place]-Urine 1.040 (H) 1.003 - 1.035 pH,UA 5.0 5.0 - 8.0 Protein,UA 1+ (A) NEG-NEG Glucose,UA 1+ (A) NEG-NEG Ketones,UA 1+ (A) NEG-NEG Bilirubin,UA POS (A) NEG-NEG Blood,UA NEG NEG-NEG Urobilinogen,UA NORMAL NORM-NORMAL Nitrite,UA NEG NEG-NEG Leukocytes,UA NEG NEG-NEG URINALYSIS, MICROSCOPIC Collection Time: 11/21/17 2:00 AM Result Value Ref Range WBCs,UA 2-5 0 - 2 /HPF RBCs,UA 0-2 0 - 3 /HPF Amorphous Sedimate,UA TRACE Bacteria,UA FEW (A) NEG-NEG TEG WITH KAOLIN Collection Time: 11/21/17 2:00 AM Result Value Ref Range MA Kaolin 66.1 50.0 - 70.0 MM R Kaolin 4.6 3.0 - 9.0 MIN RK Kaolin 5.8 4.0 - 12.0 MIN K Kaolin 1.2 1.0 - 3.0 MIN Angle Kaolin 73.6 55 - 75 DEG Lysis30 17.5 (H) 0.0 - 8.0 % BLOOD GASES, ARTERIAL Collection Time: 11/21/17 3:10 AM Result Value Ref Range pH-Arterial 7.34 (L) 7.35 - 7.45 pCO2-Arterial 30 (L) 35 - 45 MMHG pO2-Arterial 159 (H) 80 - 100 MMHG Base Deficit-Arterial 8.4 MMOL/L O2 Sat-Arterial 99.2 (H) 95 - 99 % Mgzampwwiuo-RTL-Nvh 17.8 (L) 21 - 28 MMOL/L Point of Care Testing: (Last 24 hours): Glucose: (!) 203 (11/21/17 1925) POC Glucose (Download): (!) 329 (11/21/17 9462) Assessment/Plan: Most likely schizoaffective disorder with MDD. Increased the dose of ziprasidone and add risperidone to treat psychosis. Continue monitoring and do formal assessments. Try to contact family members to gain collateral information Roddy Price * Care Plan - Marisol Hand RN - 11/27/2017 11:38 PM CDT Problem: Discharge Planning Goal: Participation in plan of care Outcome: Goal Ongoing Patient is calm and cooperative. Goal: Knowledge regarding plan of care Outcome: Goal Ongoing Instructions provided as needed. Problem: Thought Process - Altered Goal: Demonstration of organized thought processes Outcome: Goal Ongoing Patient is able to process information and respond appropriately. Problem: Violence, self/other-directed, Risk of Goal: Absence of violence Outcome: Goal Ongoing No violence toward self or others. Goal: Knowledge of risk for violence, self/other-directed Outcome: Goal Ongoing Patient reports presence of suicidal thought. He denies any plan to inflict self -harm. * Care Plan - Massiel Messer - 11/27/2017 2:32 PM CDT Problem: Tobacco Use Goal: Knowledge of tobacco-use cessation methods Outcome: Goal Achieved Date Met: 11/27/17 [employer] CONSULTATION ASSESSMENT/RECOMMENDATIONS Patient was referred for [employer] consultation Tobacco Use Treatment Practical Counseling was provided, including recognizing danger situations, developing coping skills and providing basic information about quitting. MEDICATION RECOMMENDATIONS TO QUIT TOBACCO: In-patient quit-tobacco medication: If medically acceptable, please provide Nicotine patches (35 mg), Nicotine gum (4 mg) Discharge medication options: If medically acceptable, please prescribe DC Rx Wellbutrin/Zyban Post discharge support referral: Accepted State Tobacco Quitline, referral emailed at time of consult [employer] Educational Material: Accepted History of Present Illness Reports using 10 cigarettes per day. Reports using tobacco within 6-30 minutes minutes of waking. E-Cigarette or vape use: None Other tobacco use: 2 Cans of Chew per week Years used: 30 Withdrawal: Mild nicotine withdrawal based upon the patients rating on the Nicotine Withdrawal Behavior Rating Scale. Patient lives with other smokers or vapers Set a quit date: No Plan about smoking after patient leaves the hospital: I plan to try to quit when I leave the hospital Interest in quitting: moderate Contact Information If I can be of further assistance, please call [facility] [phone] in this encounter Plan of Treatment Not on fileas of this encounter Results * POC GLUCOSE (12/09/2017 12:12 PM) Component Value Ref Range Glucose, POC 132 (H) 70 - 100 MG/DL Specimen Performing Laboratory [facility] [address] [place] [address] * POC GLUCOSE (12/09/2017 7:37 AM) Component Value Ref Range Glucose, POC 272 (H) 70 - 100 MG/DL Specimen Performing Laboratory [facility] [address] [place] [address] * POC GLUCOSE (12/08/2017 7:53 PM) Component Value Ref Range Glucose, POC 258 (H) 70 - 100 MG/DL Specimen Performing Laboratory [address] [address] * POC GLUCOSE (12/08/2017 4:53 PM) Component Value Ref Range Glucose, POC 155 (H) 70 - 100 MG/DL Specimen Performing Laboratory [address] [address] * POC GLUCOSE (12/08/2017 11:50 AM) Component Value Ref Range Glucose, POC 193 (H) 70 - 100 MG/DL Specimen Performing Laboratory [address] [address] * POC GLUCOSE (12/08/2017 7:30 AM) Component Value Ref Range Glucose, POC 85 70 - 100 MG/DL Specimen Performing Laboratory [address] [address] * POC GLUCOSE (12/07/2017 7:45 PM) Component Value Ref Range Glucose, POC 187 (H) 70 - 100 MG/DL Specimen Performing Laboratory [facility] [address] [place] [id number] * POC GLUCOSE (12/07/2017 4:39 PM) Component Value Ref Range Glucose, POC 327 (H) 70 - 100 MG/DL Specimen Performing Laboratory [facility] [address] [place] [address] * POC GLUCOSE (12/07/2017 11:55 AM) Component Value Ref Range Glucose, POC 246 (H) 70 - 100 MG/DL Specimen Performing Laboratory [address] [address] * POC GLUCOSE (12/07/2017 7:49 AM) Component Value Ref Range Glucose, POC 112 (H) 70 - 100 MG/DL Specimen Performing Laboratory [facility] [address] [place] [address] * LIVER FUNCTION PANEL (12/07/2017 7:31 AM) Component Value Ref Range Total Bilirubin 0.3 0.3 - 1.2 MG/DL Bilirubin, Direct <0.1 <0.4 MG/DL Albumin 3.8 3.5 - 5.0 G/DL Alk Phosphatase 76 25 - 110 U/L AST (SGOT) 19 7 - 40 U/L ALT (SGPT) 34 7 - 56 U/L Total Protein 6.7 6.0 - 8.0 G/DL Specimen Performing Laboratory [facility] [address] [place] [address] * POC GLUCOSE (12/06/2017 7:52 PM) Component Value Ref Range Glucose, POC 139 (H) 70 - 100 MG/DL Specimen Performing Laboratory [facility] [address] [place] [address] * POC GLUCOSE (12/06/2017 5:03 PM) Component Value Ref Range Glucose, POC 306 (H) 70 - 100 MG/DL Specimen Performing Laboratory [facility] [address] [place] [address] * LIVER FUNCTION PANEL (12/06/2017 12:18 PM) Component Value Ref Range Total Bilirubin 0.3 0.3 - 1.2 MG/DL Bilirubin, Direct <0.1 <0.4 MG/DL Albumin 3.9 3.5 - 5.0 G/DL Alk Phosphatase 81 25 - 110 U/L AST (SGOT) 18 7 - 40 U/L ALT (SGPT) 36 7 - 56 U/L Total Protein 6.7 6.0 - 8.0 G/DL Specimen Performing Laboratory [facility] [address] [place] [address] * POC GLUCOSE (12/06/2017 11:35 AM) Component Value Ref Range Glucose, POC 233 (H) 70 - 100 MG/DL Specimen Performing Laboratory [facility] [address] [place] [phone] * POC GLUCOSE (12/06/2017 8:00 AM) Component Value Ref Range Glucose, POC 90 70 - 100 MG/DL Specimen Performing Laboratory [facility] [address] [place] [address] * POC GLUCOSE (12/05/2017 7:42 PM) Component Value Ref Range Glucose, POC 206 (H) 70 - 100 MG/DL Specimen Performing Laboratory [facility] [address] [place] [address] * POC GLUCOSE (12/05/2017 4:29 PM) Component Value Ref Range Glucose, POC 300 (H) 70 - 100 MG/DL Specimen Performing Laboratory [facility] [address] [place] [address] * POC GLUCOSE (12/05/2017 12:29 PM) Component Value Ref Range Glucose, POC 252 (H) 70 - 100 MG/DL Specimen Performing Laboratory [facility] [address] [place] [address] * POC GLUCOSE (12/05/2017 8:00 AM) Component Value Ref Range Glucose, POC 93 70 - 100 MG/DL Specimen Performing Laboratory [facility] [address] [place] [address] * POC GLUCOSE (12/05/2017 1:21 AM) Component Value Ref Range Glucose, POC 203 (H) 70 - 100 MG/DL Specimen Performing Laboratory [facility] [address] [place] [address] * POC GLUCOSE (12/04/2017 5:44 PM) Component Value Ref Range Glucose, POC 385 (H) 70 - 100 MG/DL Specimen Performing Laboratory [facility] [address] [place] [address] * POC GLUCOSE (12/04/2017 11:51 AM) Component Value Ref Range Glucose, POC 196 (H) 70 - 100 MG/DL Specimen Performing Laboratory [facility] [address] [place] [address] * POC GLUCOSE (12/04/2017 7:54 AM) Component Value Ref Range Glucose, POC 385 (H) 70 - 100 MG/DL Specimen Performing Laboratory [facility] [address] [place] [address] * POC GLUCOSE (12/03/2017 7:15 PM) Component Value Ref Range Glucose, POC 302 (H) 70 - 100 MG/DL Specimen Performing Laboratory [facility] [address] [place] [id number] * POC GLUCOSE (12/03/2017 4:48 PM) Component Value Ref Range Glucose, POC 207 (H) 70 - 100 MG/DL Specimen Performing Laboratory [facility] [address] [place] [address] 27778 * POC GLUCOSE (12/03/2017 11:45 AM) Component Value Ref Range Glucose, POC 270 (H) 70 - 100 MG/DL Specimen Performing Laboratory [facility] [address] [place] [address] * POC GLUCOSE (12/03/2017 7:51 AM) Component Value Ref Range Glucose, POC 131 (H) 70 - 100 MG/DL Specimen Performing Laboratory [facility] [address] [place] [address] * POC GLUCOSE (12/02/2017 8:04 PM) Component Value Ref Range Glucose, POC 135 (H) 70 - 100 MG/DL Specimen Performing Laboratory [address] [address] * POC GLUCOSE (12/02/2017 4:58 PM) Component Value Ref Range Glucose, POC 240 (H) 70 - 100 MG/DL Specimen Performing Laboratory [address] [address] * POC GLUCOSE (12/02/2017 12:06 PM) Component Value Ref Range Glucose, POC 304 (H) 70 - 100 MG/DL Specimen Performing Laboratory [address] [address] * POC GLUCOSE (12/02/2017 7:56 AM) Component Value Ref Range Glucose, POC 374 (H) 70 - 100 MG/DL Specimen Performing Laboratory [address] [address] * POC GLUCOSE (12/01/2017 7:57 PM) Component Value Ref Range Glucose, POC 189 (H) 70 - 100 MG/DL Specimen Performing Laboratory [address] [address] * POC GLUCOSE (12/01/2017 4:52 PM) Component Value Ref Range Glucose, POC 230 (H) 70 - 100 MG/DL Specimen Performing Laboratory [facility] [address] [place] [phone] * POC GLUCOSE (12/01/2017 11:58 AM) Component Value Ref Range Glucose, POC 269 (H) 70 - 100 MG/DL Specimen Performing Laboratory [facility] [address] [place] [address] * POC GLUCOSE (12/01/2017 8:45 AM) Component Value Ref Range Glucose, POC 264 (H) 70 - 100 MG/DL Specimen Performing Laboratory [facility] [address] [place] [address] * POC GLUCOSE (12/01/2017 7:59 AM) Component Value Ref Range Glucose, POC 81 70 - 100 MG/DL Specimen Performing Laboratory [facility] [address] [place] [address] * POC GLUCOSE (12/01/2017 7:37 AM) Component Value Ref Range Glucose, POC 59 (L) 70 - 100 MG/DL Specimen Performing Laboratory [facility] [address] [place] [address] * POC GLUCOSE (11/30/2017 7:54 PM) Component Value Ref Range Glucose, POC 158 (H) 70 - 100 MG/DL Specimen Performing Laboratory [address] [address] * POC GLUCOSE (11/30/2017 4:55 PM) Component Value Ref Range Glucose, POC 250 (H) 70 - 100 MG/DL Specimen Performing Laboratory [facility] [address] [place] [address] * POC GLUCOSE (11/30/2017 11:48 AM) Component Value Ref Range Glucose, POC 310 (H) 70 - 100 MG/DL Specimen Performing Laboratory [address] [address] * POC GLUCOSE (11/30/2017 8:31 AM) Component Value Ref Range Glucose, POC 119 (H) 70 - 100 MG/DL Specimen Performing Laboratory [facility] [address] [place] [address] * POC GLUCOSE (11/30/2017 8:04 AM) Component Value Ref Range Glucose, POC 65 (L) 70 - 100 MG/DL Specimen Performing Laboratory [facility] [address] [place] [address] * POC GLUCOSE (11/29/2017 8:34 PM) Component Value Ref Range Glucose, POC 166 (H) 70 - 100 MG/DL Specimen Performing Laboratory [facility] [address] [place] [address] * POC GLUCOSE (11/29/2017 4:52 PM) Component Value Ref Range Glucose, POC 320 (H) 70 - 100 MG/DL Specimen Performing Laboratory [facility] [address] [place] [id number] * POC GLUCOSE (11/29/2017 12:03 PM) Component Value Ref Range Glucose, POC 367 (H) 70 - 100 MG/DL Specimen Performing Laboratory [facility] [address] [place] [address] * LIPID PROFILE (11/29/2017 11:21 AM) Component Value Ref Range Cholesterol 141 <200 MG/DL Triglycerides 268 (H) <150 MG/DL HDL 29 (L) >40 MG/DL LDL 83 <100 MG/DL VLDL 54 MG/DL Non HDL Cholesterol 112 MG/DL Comment: Calculated non-HDL Cholesterol (non-HDL-C) indirectly measures LDL-C, Lp(a), IDL-C, and VLDL-C.It is a surrogate marker for Apoprotein B.Goal should be less than 130 mg/dL. Specimen Performing Laboratory Blood [facility] [address] [place] [id number] * HEMOGLOBIN A1C (11/29/2017 11:21 AM) Component Value Ref Range Hemoglobin A1C 9.4 (H) 4.0 - 6.0 % Comment: The ADA recommends that most patients with type 1 and type 2 diabetes maintain an A1c level <7%. Specimen Performing Laboratory Blood [facility] [address] [place] [address] * POC GLUCOSE (11/29/2017 8:02 AM) Component Value Ref Range Glucose, POC 83 70 - 100 MG/DL Specimen Performing Laboratory [facility] [address] [place] [address] * POC GLUCOSE (11/28/2017 7:55 PM) Component Value Ref Range Glucose, POC 136 (H) 70 - 100 MG/DL Specimen Performing Laboratory [facility] [address] [place] [address] * POC GLUCOSE (11/28/2017 4:58 PM) Component Value Ref Range Glucose, POC 269 (H) 70 - 100 MG/DL Specimen Performing Laboratory [facility] [address] [place] [address] * POC GLUCOSE (11/28/2017 11:59 AM) Component Value Ref Range Glucose, POC 210 (H) 70 - 100 MG/DL Specimen Performing Laboratory [facility] [address] [place] [address] * POC GLUCOSE (11/28/2017 8:03 AM) Component Value Ref Range Glucose, POC 67 (L) 70 - 100 MG/DL Specimen Performing Laboratory [facility] [address] [place] [address] * POC GLUCOSE (11/27/2017 7:55 PM) Component Value Ref Range Glucose, POC 255 (H) 70 - 100 MG/DL Specimen Performing Laboratory [facility] [address] [place] [address] * POC GLUCOSE (11/27/2017 5:36 PM) Component Value Ref Range Glucose, POC 272 (H) 70 - 100 MG/DL Specimen Performing Laboratory [facility] [address] [place] [address] in this encounter Visit Diagnoses Diagnosis Schizoaffective disorder, depressive type (HCC) - Primary Schizoaffective disorder, unspecified condition Schizophrenia, unspecified type (HCC) Uncontrolled type 1 diabetes mellitus without complication (HCC) Suicide attempt (HCC) Suicide and self-inflicted injury by unspecified means Admitting Diagnoses Diagnosis MDD Suicide attempt ([facility]) Administered Medications Medication Order MAR Action Action Date Dose Rate Site amoxicillin/K clavulanate (AUGMENTIN) Given 11/27/2017 875 mg tablet 875 mg 17:39 CDT 875 mg, Oral, TWICE DAILY WITH MEALS, 3 doses, First dose on Fri11/27/17 at 1700, Last dose on Fri11/28/17 at 1700, NURSING: Please educate patient and document: Give with food. Given 11/28/2017 875 mg 08:18 CDT Given 11/28/2017 875 mg 17:02 CDT ascorbic acid (VITAMIN C) tablet 500 mg Given 12/07/2017 500 mg 500 mg, Oral, DAILY, First dose on Fri 08:05 CDT 11/28/17 at 0900, Until Discontinued Given 12/08/2017 500 mg 09:04 CDT Given 12/09/2017 500 mg 08:12 CDT aspirin chewable tablet 81 mg Given 12/07/2017 81 mg 81 mg, Oral, DAILY, First dose on Fri 08:04 CDT 11/28/17 at 0900, Until Discontinued Given 12/08/2017 81 mg 09:04 CDT Given 12/09/2017 81 mg 08:14 CDT carvedilol (COREG) tablet 6.25 mg Given 12/08/2017 6.25 mg 6.25 mg, Oral, TWICE DAILY, First dose 09:04 CDT on Jaimie 11/27/17 at 2100, Until Discontinued, Hold for heart rate < 60 bpm Given 12/08/2017 6.25 mg 20:06 CDT Given 12/09/2017 6.25 mg 08:12 CDT escitalopram oxalate (LEXAPRO) tablet 10 Given 12/07/2017 10 mg mg 16:38 CDT 10 mg, Oral, DAILY, First dose on Fri12/07/17 at 1545, Until Discontinued Given 12/08/2017 10 mg 09:04 CDT Given 12/09/2017 10 mg 08:12 CDT folic acid (FOLVITE) tablet 1 mg Given 12/07/2017 1 mg 1 mg, Oral, DAILY, First dose on Fri 08:04 CDT 11/28/17 at 0900, Until Discontinued Given 12/08/2017 1 mg 09:05 CDT Given 12/09/2017 1 mg 08:12 CDT ibuprofen (MOTRIN) tablet 600 mg 600 mg, Oral, EVERY 6 HOURS PRN, Starting Jaimie 11/27/17 at 1950, Until Fri12/09/17 at 1728, Headache, Pain non-opioid: may be used alone or in combination with opioid analgesia, TOTAL IBUPROFEN DOSE NOT TO EXCEED 3.2GM PER DAY insulin aspart U-100 (NOVOLOG FLEXPEN) Given 12/08/2017 4 Units Arm, Right injection PEN 0-14 Units 12:04 CDT 0-14 Units, Subcutaneous, THREE TIMES DAILY WITH MEALS, First dose on 11/29/17 at 1800, Until Discontinued, -POC glucose 140-180mg/dL at administer 2 units insulin, at 21, 03* administer 0 units. -POC glucose 181-220mg/dL at administer 4 units insulin, at 21, 03* administer 2 units. -POC glucose 221-260mg/dL at administer 6 units insulin, at 21, 03* administer 4 units. -POC glucose 261-300mg/dL at , administer 8 units insulin, at 21, 03* administer 6 units. -POC glucose 301-350mg/dL at administer 10 units insulin, at 21, 03* administer 8 units. -POC glucose 351-400mg/dL at , administer 12 units insulin, at , 03* administer 10 units. -POC glucose >400mg/dL at administer 14 units insulin, at , 03* administer 12 units. *only if ordered 5x's daily For POCT glucose >350mg/dL give correction bolus and recheck POCT glucose in 2 hours. If POCT glucose at 2 hours >300mg/dL call physician for further orders. For patients who are not eating meals, continue to administer the appropriate correction factor. NOTE: This is a HIGH ALERT Medication. Given 12/08/2017 2 Units Deltoid, 17:56 CDT Right Given 12/09/2017 8 Units Deltoid, 08:11 CDT Right insulin aspart U-100 (NOVOLOG FLEXPEN) Given 11/28/2017 2 Units Arm, Right injection PEN 0-7 Units 12:00 CDT 0-7 Units, Subcutaneous, BEFORE MEALS AND AT BEDTIME, First dose on Jaimie 11/27/17 at 1700, Until Discontinued, -POC glucose 140-180mg/dL at , administer 1 unit insulin, at , 03* administer 0 units. -POC glucose 181-220mg/dL at , administer 2 units insulin, at , 03* administer 1 unit. -POC glucose 221-260mg/dL at , administer 3 units insulin, at , 03* administer 2 units. -POC glucose 261-300mg/dL at , administer 4 units insulin, at 21, 03* administer 3 units. -POC glucose 301-350mg/dL at , administer 5 units insulin, at , 03* administer 4 units. -POC glucose 351-400mg/dL at , , administer 6 units insulin, at , 03* administer 5 units. -POC glucose >400mg/dL at administer 7 units insulin, at , 03* administer 6 units. *only if ordered 5x's daily For POCT glucose >350mg/dL give correction bolus and recheck POCT glucose in 2 hours. If POCT glucose at 2 hours >300mg/dL call physician for further orders. For patients who are not eating meals, continue to administer the appropriate correction factor. NOTE: This is a HIGH ALERT Medication. Given 11/28/2017 4 Units Arm, Right 16:58 CDT Given 11/29/2017 5 Units Arm, Left 12:04 CDT insulin aspart U-100 (NOVOLOG FLEXPEN) Given 12/06/2017 10 Units Arm, Right injection PEN 10 Units 08:08 CDT 10 Units, Subcutaneous, THREE TIMES DAILY WITH MEALS, First dose on Jaimie 11/27/17 at 1800, Until Discontinued, Give scheduled doses of Insulin Aspart with meals/food. NOTE: Rapid acting insulins should be given with food/meal. Use caution when patient is NPO. NOTE: This is a HIGH ALERT Medication. Given 12/06/2017 10 Units Arm, Right 12:05 CDT Given 12/06/2017 10 Units Arm, Right 17:05 CDT insulin aspart U-100 (NOVOLOG FLEXPEN) Given 12/08/2017 10 Units Arm, Right injection PEN 10 Units 17:56 CDT 10 Units, Subcutaneous, THREE TIMES DAILY WITH MEALS, First dose on 12/08/17 at 1800, Until Discontinued, Give scheduled doses of Insulin Aspart with meals/food. NOTE: Rapid acting insulins should be given with food/meal. Use caution when patient is NPO. NOTE: This is a HIGH ALERT Medication. Given 12/09/2017 10 Units Deltoid, 08:11 CDT Right insulin aspart U-100 (NOVOLOG FLEXPEN) Given 12/07/2017 12 Units Arm, Right injection PEN 12 Units 17:02 CDT 12 Units, Subcutaneous, THREE TIMES DAILY WITH MEALS, First dose on 12/07/17 at 0800, Until Discontinued, Give scheduled doses of Insulin Aspart with meals/food. NOTE: Rapid acting insulins should be given with food/meal. Use caution when patient is NPO. NOTE: This is a HIGH ALERT Medication. Given 12/08/2017 12 Units Arm, Left 09:04 CDT Given 12/08/2017 12 Units Abdominal 12:04 CDT Tissue insulin glargine (LANTUS SOLOSTAR, Given 12/01/2017 24 Units Arm, Left BASAGLAR) injection PEN 24 Units 20:24 CDT 24 Units, Subcutaneous, AT BEDTIME DAILY, First dose on 12/01/17 at 2100, Until Discontinued, -- Do not mix with other insulins -- NOTE: This is a HIGH ALERT Medication. Given 12/02/2017 24 Units Abdominal 20:05 CDT Tissue Given 12/03/2017 24 Units Arm, Right 20:22 CDT insulin glargine (LANTUS SOLOSTAR, Given 12/06/2017 26 Units Arm, Right BASAGLAR) injection PEN 26 Units 20:31 CDT 26 Units, Subcutaneous, AT BEDTIME DAILY, First dose on Jaimie 12/04/17 at 2100, Until Discontinued, -- Do not mix with other insulins -- NOTE: This is a HIGH ALERT Medication. Given 12/07/2017 26 Units Arm, Right 21:00 CDT Given 12/08/2017 26 Units Arm, Right 20:06 CDT insulin glargine (LANTUS SOLOSTAR, Given 11/28/2017 28 Units Arm, Right BASAGLAR) injection PEN 28 Units 21:08 CDT 28 Units, Subcutaneous, AT BEDTIME DAILY, First dose on Jaimie 11/27/17 at 2100, Until Discontinued, -- Do not mix with other insulins -- NOTE: This is a HIGH ALERT Medication. Given 11/29/2017 28 Units Arm, Right 20:37 CDT Given 11/30/2017 28 Units Arm, Left 20:49 CDT lactobacillus rhamnosus GG (CULTURELLE) Given 12/08/2017 1 capsule 15 billion cell capsule 1 capsule 09:05 CDT 1 capsule, Oral, TWICE DAILY WITH MEALS, First dose on Fri11/27/17 at 1700, Until Discontinued Given 12/08/2017 1 capsule 17:30 CDT Given 12/09/2017 1 capsule 08:12 CDT lisinopril (PRINIVIL; ZESTRIL) tablet 5 Given 12/07/2017 5 mg mg 08:05 CDT 5 mg, Oral, DAILY, First dose on Fri11/28/17 at 0900, Until Discontinued Given 12/08/2017 5 mg 09:05 CDT Given 12/09/2017 5 mg 08:12 CDT loperamide (IMODIUM A-D) capsule 2 mg Given 12/04/2017 2 mg 2 mg, Oral, FOUR TIMES DAILY PRN, 08:59 CDT Starting Fri11/27/17 at 1353, Until Fri12/09/17 at 1728, Diarrhea, GIVE WITH EACH LOOSE STOOL; NOT TO EXCEED 16MG/24HRS ondansetron (ZOFRAN) tablet 4 mg Given 12/05/2017 4 mg 4 mg, Oral, ONCE, 1 dose, Fri12/05/17 at 09:26 CDT 0930 paliperidone palmitate(+) (INVEGA) Given 12/09/2017 234 mg Deltoid, injection 234 mg 10:27 CDT Right 234 mg, Intramuscular, ONCE, 1 dose, Fri12/08/[address] (PROTONIX) tablet 40 mg Given 12/07/2017 40 mg 40 mg, Oral, DAILY, First dose on Fri 08:05 CDT 11/28/17 at 0900, Until Discontinued, Do not crush or chew tablet. Given 12/08/2017 40 mg 09:04 CDT Given 12/09/2017 40 mg 08:12 CDT risperiDONE (RISPERDAL) tablet 2 mg Given 11/28/2017 2 mg 2 mg, Oral, AT BEDTIME DAILY, First dose 21:05 CDT on Fri11/28/17 at 2100, Until Discontinued Given 11/29/2017 2 mg 20:35 CDT Given 11/30/2017 2 mg 20:48 CDT risperiDONE (RISPERDAL) tablet 4 mg Given 12/01/2017 4 mg 4 mg, Oral, AT BEDTIME DAILY, First dose 20:23 CDT on Fri12/01/17 at 2100, Until Discontinued Given 12/02/2017 4 mg 20:05 CDT risperiDONE (RISPERDAL) tablet 6 mg Given 12/05/2017 6 mg 6 mg, Oral, AT BEDTIME DAILY, First dose 20:17 CDT on Fri12/03/17 at 2100, Until Discontinued Given 12/06/2017 6 mg 20:30 CDT Given 12/07/2017 6 mg 20:59 CDT traZODone (DESYREL) tablet 100 mg Given 11/29/2017 100 mg 100 mg, Oral, AT BEDTIME PRN, Starting 20:36 CDT 11/29/17 at 0922, Until Fri12/04/17 at 1414, Insomnia Given 11/30/2017 100 mg 20:48 CDT traZODone (DESYREL) tablet 100 mg Given 12/06/2017 100 mg 100 mg, Oral, AT BEDTIME DAILY, First 20:30 CDT dose on Fri12/04/17 at 2100, Until Discontinued Given 12/07/2017 100 mg 20:59 CDT Given 12/08/2017 100 mg 20:06 CDT traZODone (DESYREL) tablet 50 mg Given 11/28/2017 50 mg 50 mg, Oral, AT BEDTIME PRN, Starting 21:05 CDT Jaimie 11/27/17 at 1950, Until 11/29/17 at 0922, Insomnia vitamins, B complex tablet 1 tablet Given 12/07/2017 1 tablet 1 tablet, Oral, DAILY, First dose on Fri 08:04 CDT 11/28/17 at 0900, Until Discontinued Given 12/08/2017 1 tablet 09:04 CDT Given 12/09/2017 1 tablet 08:12 CDT ziprasidone (GEODON) capsule 20 mg Given 11/27/2017 20 mg 20 mg, Oral, TWICE DAILY WITH MEALS, 17:39 CDT First dose on Jaimie 11/27/17 at 1700, Until Discontinued, RESTRICTED USE NURSING: Please educate patient and document: Give with food. Given 11/28/2017 20 mg 08:18 CDT in this encounter
[2017-12-13] MEDS ORDERED: NS IV 1000 ML 1,000 ML IV ONE (03:17)
--- OUTSIDE RECORDS SUMMARY | 2017-12-13 03:17 | XMS REPORT | Encounter Summary ---
Author Author [facility] Organization [facility] Address Unknown Phone Unavailable Care Team Providers Care Government Relations Manager Name Role Phone No Pcp, Na PCP Unavailable Reason for Visit * Auth/Cert Status Reason Specialty Diagnoses / Referred By Referred To Procedures Contact Contact Diagnoses tylenol overdose DKA Tylenol overdose Encounter Details Date Type Department Care Team Description 11/21/2017 [facility] Renal/Organ Transplant Courtney Sainz MD Type 1 diabetes mellitus - Encounter [address] with complication ( HCC) 11/27/2017 [place] [address] [place] [address] [phone] L Keith wiseman MD [address] [place] [address] [phone] B Pedro trevino MD [address] [place] [address] [phone] Deloris Cameron MD [address] [place] [address] [phone] Social History Tobacco Use Types Packs/Day Years Used Date Current Every Day Smoker Cigarettes 0.5 15 Smokeless Tobacco: Never Used Alcohol Use Drinks/Week oz/Week Comments No Sex Assigned at Date Recorded Not on file as of this encounter Last Filed Vital Signs Vital Sign Reading Time Taken Blood Pressure 120/66 11/27/2017 7:38 AM CDT Pulse 75 11/27/2017 7:38 AM CDT Temperature 36.9 C (98.5 F) 11/27/2017 7:38 AM CDT Respiratory Rate - - Oxygen Saturation 94% 11/27/2017 7:38 AM CDT Inhaled Oxygen - - Concentration Weight 77.3 kg (170 lb 6.4 oz) 11/27/2017 6:00 AM CDT Height 189.9 cm (6' 2.76") 11/24/2017 12:12 PM CDT Body Mass Index 21.43 11/27/2017 6:00 AM CDT in this encounter Functional Status Functional Status Response Date of Assessment Does the patient have a hearing impairment: No 11/23/2017 as of this encounter Discharge Summaries * Deloris Barrera MD - 11/27/2017 12:30 PM CDT Formatting of this note may be different from the original. Physician Discharge Summary Name: Krunal Bertrand Date Of : 1970 Age: 47 years Admit date: 11/21/2017 Discharge date: 11/27/2017 Attending Physician: Deloris Barrera MD Service: [facility] 4337 Physician Summary completed by: Deloris Barrera MD Reason for hospitalization: Tylenol Overdose, DKA Significant PMH: Past Medical History: Diagnosis Date DM (diabetes mellitus) (HCC) Allergies: Keflex [cephalexin] and Erythromycin Admission Physical Exam notable for: - CONSTITUTIONAL: Intubated/sedated. Appears stated age. Vital signs as above - HEAD: Head is normocephalic and atraumatic. - EYES: PERRL. Conjunctiva and sclera are clear. - ENT: Oropharynx is clear with good dentition. Mucus membranes are dry. - CHEST: Lungs, clear to auscultation bilaterally with no wheezes, rales or rhonchi. No accessory muscle use noted. Normal respiratory effort. - CV: tachycardic and regular, with no murmurs, rubs or gallops. No JVD. - ABD: Soft, non-tender, non-distended with normal, active bowel sounds appreciated. Small RLQ fluctuant bulge, without overlying warmth or color change. No significant hernia palpable - MS: trace b/l LE edema - HEME/LYMPH: No active bleeding. - SKIN: No rashes or lesions. No jaundice - PULSES: 2+ in BUE and BLE. - NEURO: moves all 4 extremities with pain. Admission Lab/Radiology studies notable for: Na 143, K 2.8, Cr 1.11, CO2 14, AST 822, ALT 675, Bili 0.2, WBC 24, Hgb 12.6, Plt 184, INR 1.2, Lipase 935 Brief Hospital Course: The patient was admitted and the following issues were addressed during this hospitalization: (with pertinent details). Krunal Arriola a 47 y.o.malewith a PMH of DM1 w/ hx DKA, fundoplication, bipolar/schizophrenia, depression w/ hx SI. He presented to [facility] on 11/20 for AMS &was found to be in DKA &had an ALI. He was found with an empty bottle of Tylenol, unclear amount ingested but possibly 85 grams, level at OSH was 295 &started on NAC. He was intubated d/t AMS &DKA was treated w/ IVF/insulin prior to tx to MICU. He had numerous problems during stay which are listed in further detail with workup, management, and followup plan as below. He was stable at discharge to inpatient psych on regular diet , with improving labs, normal vitals, and good glucose control. He will have followup scheduled with GI for EUS, will need a repeat Echo and likely Cardiology followup, Endo, and PCP followup. Acute Liver Injury due to Acetaminophen Overdose - Unknown amount of tyl ingested; possibly #170 of 500mg tabs or 85 grams - At OSH: TYL level 295, AST 1361, ALT 761, Tbili 0.2, INR 1.6, Etoh/UDS/TCA - Neg & started on NAC - Abd US 11/21 - mild hepatomegaly, diffuse hepatic steatosis, patent hepatic vessels; small volume ascites - Ceruloplasmin is low, unremarkable hep panel, HSV, CMV, HIV, EBV, zoster, DANIKA , AMA, ASM-ab, alpha-1. 24 hr urine copper ordered and pending - AST/ALT downtrending and were at 37 and 276 at discharge - S/p 3 doses Vit K and now INR normalized - Stopped IV NAC and Rifaximin per Hepatology team DM1 with DKA - At OSH: BG >1000, bicarb 2, A & AB.8/13/164/2 - A1c 11/21 - 10.1 - [employer] Lantus 30U QHS, Aspart 25U with meals. Was having episodes of hypoglycemia at home - Insulin drip started on admission, then transitioned back to SQ when DKA resolved - Placed back on Lantus 30U QHS. Mild AM hypoglycemia - decrease to Lantus 28U QHS with improvement - Lowered mealtime Aspart dose to 10U given reported issues with hypoglycemia at home along with decreased PO intake - can titrate up as tolerated if sugars are uncontrolled - Sugars in low to mid 100s at time of discharge - music educator consulted Acute Pancreatitis - Lipase elevated on admission at 935 ->908 -> 269 - CT A/P with peripancreatic stranding without fluid collection - IgG4 ordered and pending - Plan for outpatient EUS in 6 wks - Treated with IVF and NPO - Improvement in pain and tolerating solid diet at discharge Sepsis due to Strep Pneumo Pneumonia - 08/03 SIRS - WBC 24.0, tachypnea on admit, now normalized. No fevers - Admit CXR - no focal infiltrate - CT A/P showing patchy lower lung consolidations and small bilateral pleural effusions - Blood cx NGTD - Tracheal aspirate positive for strep pneumo, gann-sensitive - Stopped Zosyn (started 11/22) and changed to Augmentin on 11/24. Plan for 7 day course (end date 11/28) Acute Toxic-Metabolic Encephalopathy - Back to baseline - Likely multifactorial from overdose, NORMA, ALI - CT head unremarkable - Intubated for airway protection; had normal blood gas; self-extubated 11/22, now on RA Schizoaffective Disorder, Bipolar Type with Intentional Overdose - Admitted for suicide attempt from Tylenol overdose - Stopped [employer] fluoxitine &haldol - Started on Geodon - Zyprexa PRN - not needed - Psych consulted and discharged to inpatient psych Hypovolemic Shock - Resolved - Likely secondary to acute liver injury and hypovolemia / DKA - LA 2.9 to 1.1 - Required Levophed in ICU, now off since 11/21 Acute Systolic/Diastolic CHF, Troponin elevation - No previous echo for comparison - Echo 11/21 shows LVEF 35-40%, diffuse hypokenesis, grade 1 diastolic dysfunction, normal R side, normal valves - EKG - w/o ST changes - Trop elevated to 1.58 - BNP 458 - CXR with small bilateral pleural effusions on imaging (could be related to pneumonia and pancreatitis). Has been on RA - Not on beta gorge or CYNDI/ARB due to renal dysfunction and hypotension on admit - Lasix 20 IV given x2 with improvement (had received quite a bit of IVF due to shock/pancreatitis) - Started Lisinopril and Carvedilol - Started baby ASA. No Statin for now given liver dysfunction - Will need a repeat Echo near discharge - Plan for stress test as outpatient if Echo is still abnormal - Cardiology consult NORMA - Cr up to 1.9 - Now normalized, likely from shock, hypovolemia, ALI, DKA Diarrhea - C diff neg - Likely from abx and bowel regimen - Stopped Miralax - Probiotic started; Imodium if needed Condition at Discharge: Stable Discharge Diagnoses: Hospital Problems Active Problems Type 1 diabetes mellitus with complication (HCC) Tylenol overdose Schizophrenia (HCC) Bipolar disorder (HCC) 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) Acute encephalopathy Liver injury Streptococcal pneumonia (HCC) Resolved Problems RESOLVED: Diabetic ketoacidosis associated with type 1 diabetes mellitus (HCC) RESOLVED: Shock (HCC) RESOLVED: On mechanically assisted ventilation (HCC) RESOLVED: NORMA (acute kidney injury) (HCC) RESOLVED: Acute pancreatitis Surgical Procedures: None Significant Diagnostic Studies and Procedures: noted in brief hospital course Consults: Cardiology, Hepatology and Psychiatry Patient Disposition: Inpatient Psych Patient instructions/medications: Activity as Tolerated It is important to keep increasing your activity level after you leave the hospital. Moving around can help prevent blood clots, lung infection (pneumonia ) and other problems. Gradually increasing the number of times you are up moving around will help you return to your normal activity level more quickly. Continue to increase the number of times you are up to the chair and walking daily to return to your normal activity level. Begin to work toward your normal activity level at discharge Report These Signs and Symptoms Please contact your doctor if you have any of the following symptoms: temperature higher than 100 degrees F, uncontrolled pain, persistent nausea and/ or vomiting, difficulty breathing, chest pain, severe abdominal pain, headache, unable to urinate, unable to have bowel movement or drainage with a foul odor Questions About Your Stay For questions or concerns regarding your hospital stay. Call [phone] Discharging attending physician: DELORIS BARRERA [[id number]] Diabetic Diet You should eat between 1600 and 2000 calories per day. This is equal to 60g ( grams) of carbohydrates per meal, and 30g of carbohydrates for a bedtime snack. If you have questions about your diet after you go home, you can call a dietitian at [phone]. Current Discharge Medication List START taking these medications Details amoxicillin/K clavulanate (AUGMENTIN) 875/125 mg tablet Take 1 tablet by mouth twice daily with meals for 3 doses. Take with food. Refills: 0 PRESCRIPTION TYPE: No Print ascorbic acid (VITAMIN C) 500 mg tablet Take 1 tablet by mouth daily. PRESCRIPTION TYPE: OTC aspirin 81 mg chewable tablet Chew 1 tablet by mouth daily. Take with food. PRESCRIPTION TYPE: OTC carvedilol (COREG) 3.125 mg tablet Take 2 tablets by mouth twice daily. Take with food. Qty: 60 tablet, Refills: 3 PRESCRIPTION TYPE: No Print folic acid (FOLVITE) 1 mg tablet Take 1 tablet by mouth daily. Qty: 30 tablet, Refills: 2 PRESCRIPTION TYPE: No Print lactobacillus rhamnosus GG (CULTURELLE) 15 billion cell cpSP capsule Take 1 capsule by mouth as directed twice daily with meals for 2 days. Qty: 90 capsule, Refills: 3 PRESCRIPTION TYPE: No Print lisinopril (PRINIVIL; ZESTRIL) 5 mg tablet Take 1 tablet by mouth daily. Qty: 30 tablet, Refills: 2 PRESCRIPTION TYPE: No Print loperamide (IMODIUM A-D) 2 mg capsule Take 2 capsules by mouth initially, followed by 1 capsule by mouth after each loose stool up to a maximum of 8 tablets in 24 hours. Qty: 30 capsule, Refills: 0 PRESCRIPTION TYPE: No Print pantoprazole DR (PROTONIX) 40 mg tablet Take 1 tablet by mouth daily. Qty: 30 tablet, Refills: 2 PRESCRIPTION TYPE: No Print vitamins, B complex tab Take 1 tablet by mouth daily. PRESCRIPTION TYPE: OTC ziprasidone (GEODON) 20 mg capsule Take 1 capsule by mouth twice daily with meals. PRESCRIPTION TYPE: No Print CONTINUE these medications which have been CHANGED or REFILLED Details insulin aspart U-100 (NOVOLOG FLEXPEN) 100 unit/mL injection PEN Inject 10 Units under the skin three times daily with meals. PRESCRIPTION TYPE: No Print insulin glargine (LANTUS SOLOSTAR, BASAGLAR) 100 unit/mL (3 mL) injection PEN Inject 28 Units under the skin at bedtime daily. PRESCRIPTION TYPE: No Print The following medications were removed from your list. This list includes medications discontinued this stay and those removed from your prior med list in our system fluoxetine (PROZAC) 20 mg capsule haloperidol (HALDOL) 10 mg tablet Pending items needing follow up: none Signed: Deloris Barrera MD 11/27/2017 cc: Primary Care Physician: No primary care provider on file. PCP Unknown Referring physicians: No ref. provider found Additional provider(s): in this encounter Medications at Time of [...] Take 1 tablet by mouth 11/27/2017 daily. amoxicillin/K clavulanate Take 1 tablet by mouth 0 11/27/20172017 (AUGMENTIN) 875/125 mg twice daily with meals tablet for 3 doses. Take with food. carvedilol (COREG) 3.125 Take 2 tablets by mouth 60 tablet 3 201712/09/2017 mg tablet twice daily. Take with food. insulin aspart U-100 Inject 10 Units under the 11/27/2017 12/09/2017 (NOVOLOG FLEXPEN) 100 skin three times daily unit/mL injection PEN with meals. insulin glargine (LANTUS Inject 28 Units under the 11/27/20172017 SOLOSTAR, BASAGLAR) 100 skin at bedtime daily. unit/mL (3 mL) injection PEN lactobacillus rhamnosus Take 1 capsule by mouth 90 capsule 3 201712/09/2017 GG (CULTURELLE) 15 as directed twice daily billion cell cpSP capsule with meals for 2 days. lisinopril (PRINIVIL; Take 1 tablet by mouth 30 tablet 2 11/27/2017 12/09/2017 ZESTRIL) [address] daily[address] pantoprazole [address] Take 1 tablet by mouth 30 tablet 2 11/27/20172017 (PROTONIX) 40 mg tablet daily. ziprasidone (GEODON) 20 Take 1 capsule by mouth 11/27/2017 12/09/2017 mg capsule twice daily with meals. as of this encounter Progress Notes * Deloris Barrera MD - 11/27/2017 12:30 PM CDT Discharge Day Progress Note Patient seen and examined. Vitals, exam, labs stable. Discussed plan for discharge today. Instructions for medications and followup discussed with patient. Stable for discharge. Doing well today. Tolerating solid foods with good PO intake. Glucoses at goal - continue this insulin regimen. Continue Lisinopril, increased Coreg. Will need followup Echo and possible stress test as outpatient if repeat Echo is still abnormal. D/c to inpatient psych today. I spent 40 minutes coordinating discharge, including face to face discussion as well as followup planning. Deloris Barrera MD Pager [phone] * Kwaku Montiel MD - 11/27/2017 11:49 AM CDT Formatting of this note may be different from the original. Cardiology Progress Note Admission Date: 11/21/2017 ATT: Have [id number] with bassem and agree with assessment and plan and exam. Assessment/Plan: Krunal Bertrand is a 47 y.o. 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 Euvolemic today. Creatinine has normalized. BP is now normal range. Recommendations: 1. Continue lisinopril 5 mg daily. Increase carvedilol 3.125 mg BID to 6.25 mg BID. 2. Plan for repeat echocardiogram to reassess LVEF as he nears discharge. 3. Given multiple comorbidities will not pursue ischemic evaluation this admission. Plan for thallium stress test after discharge if LVEF remains depressed. Would start ASA 81 mg daily[address] Patient evaluatedwith Dr. Dinesh iSnclair MD [id number] Subjective: He feels better today. Denies chest pain or shortness of breath. Review of Systems: review of systems was negative execept for what was noted in the subjective section. Objective: Physical Exam: Vital Signs BP: 120/66 (11/27 737) Temp: 36.9 C (98.5 F) (11/27 737) Pulse: 75 (11/27 737) Respirations: 18 PER MINUTE (11/27 737) SpO2: 94 % (11/27 737) O2 Delivery: None (Room Air) (11/27 737) General: awake & oriented, no acute distress Head: normocephalic, atraumatic Eyes: non-icteric, clear conjunctivae, PERRL Mouth: moist mucus membranes, clear posterior oropharynx Neck: supple, no lymphadenopathy, no carotid bruits, no JVD CV: regular rate, normal rhythm, normal S1/S2, no murmurs, rubs, gallops, or clicks Lungs: clear to ausculation bilaterally, no wheezes/rhonchi/crackles Abdomen: normoactive bowel sounds, soft, non-tender, non-distended Extremities: trace edema Neuro: no focal deficits Medications: Scheduled Meds: amoxicillin/K clavulanate (AUGMENTIN) tablet 875 mg 875 mg Oral BID w/meals ascorbic acid (VITAMIN C) tablet 500 mg 500 mg Oral QDAY aspirin chewable tablet 81 mg 81 mg Oral QDAY carvedilol (COREG) tablet 3.125 mg 3.125 mg Oral BID enoxaparin (LOVENOX) syringe 40 mg 40 mg Subcutaneous QDAY(21) folic acid (FOLVITE) tablet 1 mg 1 mg Oral QDAY insulin aspart U-100 (NOVOLOG FLEXPEN) injection PEN 0-7 Units 0-7 Units Subcutaneous ACHS insulin aspart U-100 (NOVOLOG FLEXPEN) injection PEN 10 Units 10 Units Subcutaneous TID w/ meals insulin glargine (LANTUS SOLOSTAR, BASAGLAR) injection PEN 28 Units 28 Units Subcutaneous QHS(22) lactobacillus rhamnosus GG (CULTURELLE) 15 billion cell capsule 1 capsule 1 capsule Oral BID w/meals lidocaine (LIDODERM) 5 % topical patch 1 patch 1 patch Topical QDAY lisinopril (PRINIVIL; ZESTRIL) tablet 5 mg 5 mg Oral QDAY pantoprazole DR (PROTONIX) tablet 40 mg 40 mg Oral QDAY(21) vitamins, B complex tablet 1 tablet 1 tablet Oral QDAY ziprasidone (GEODON) capsule 20 mg 20 mg Oral BID w/meals Continuous Infusions: PRN and Respiratory Meds:hyoscyamine Q4H PRN, loperamide PRN, OLANZapine Q6H PRN , ondansetron Q4H PRN, phenol PRN Lab/Radiology/Other Diagnostic Tests: Labs: Pertinent labs reviewed Radiology: Pertinent radiology reviewed * Radha Gomez RN - 11/27/2017 11:36 AM CDT Krunal Bertrand discharged on 11/27/2017. . Discharge instructions reviewed with patient. Valuables returned: . Home medications: . Functional assessment at discharge complete: Yes . * Keiko Waterman - 11/27/2017 9:56 AM CDT Family Resource Management Specialist Note: Admit Date: 11/21/2017 Reason for visit: Family Resource Management Specialist referral (3) Synopsis of visit: Pt said that he does not have a current da[employer] affiliation, however, he expressed interest in finding a [facility] home. Pt said that he went to [employer] as a child and that he and his attended [employer] together. He then talked about his 's from breast cancer about 7 years ago. He said she on . Pt also said that he is "doing better" with grief related to her . Pt said that he has 2 children, ages 25 and 26 years old. He expressed hope that his medical situation would continue to improve. Family Resource Management Specialist listened actively, offering bereavement support in regard to pt's ' s . Based on pt's statement about wanting to find a gnosticist home, pt offered encouragement that pt finds a gnosticist that feels "right" for him. Family Resource Management Specialist offered a blessing for pt's healing and assurance of continued prayers. Family Resource Management Specialist will continue to follow for spiritual and emotional support. The spiritual care team is available as needed, 20/01, through the campus switchboard ([phone]). For immediate response, please page [phone]. For a response within 24 hours, please submit an order in O2 for a charge entry clerk consult or call the administrative voicemail at [phone]. Please page or use consult order if patient requests visit. Date/Time: User: Pager: [phone] 11/27/2017 9:56 AM Keiko Waterman * [place] MillsMike baker[place], PT - 11/27/2017 9:26 AM CDT PHYSICAL THERAPY PROGRESS NOTE/DISCHARGE SUMMARY MOBILITY: Mobility Progressive Mobility Level: Walk in hallway Distance Walked (feet): 350 ft Level of Assistance: Stand by assistance Assistive Device: None Time Tolerated: 0-10 minutes Activity Limited By: No limitations SUBJECTIVE: Subjective Significant hospital events: PMH: DM1, depression with h/i SI, bipolar/ schizophrenia. Admitted from OSH for DKA, acture liver injury and tylenol toxicity. Mental / Cognitive Status: Alert;Oriented;Cooperative Persons Present: Constant Observer Pain: Patient has no complaint of pain Pain Interventions: Patient agrees to participate in therapy;Patient assisted into position of comfort Comments: Patient reports mild pain/discomfort in BLE after ambulating which he attributes to diabetic neuropathy. Ambulation Assist: Independent Mobility in Community without Device Patient Owned Equipment: None Home Situation: Lives with Family Type of Home: House Entry Stairs: 1-2 Stairs In-Home Stairs: No Stairs BED MOBILITY/TRANSFERS: Bed Mobility/Transfers Bed Mobility: Supine to Sit: Independent Comments: Patient remains sitting at edge of bed at end of therapy session. CO at bedside. Transfer Type: Sit to/from Stand Transfer: Assistance Level: From;Bed;Independent Transfer: Assistive Device: None Transfers: Type Of Assistance: For Safety Considerations End Of Activity Status: Sitting at Edge of Bed;Nursing Notified GAIT: Gait Gait Distance: 350 feet Gait: Assistance Level: Standby Assist Gait: Assistive Device: None Gait: Descriptors: Pace: Normal;Scissoring;Pathway deviations;Swing-Through Gait Comments: Patient with several instances of scissoring gait pattern and mild pathway deviations most notable with head turns and changing direction in hallway. Patient able to self-correct and with no overt loss of balance. He reports no questions or concerns regarding mobility prior to discharge. Comments: Patient declines stairs assessment this date and reports no concerns with stair climb. EDUCATION: Education Persons Educated: Patient Patient Barriers To Learning: None Noted Teaching Methods: Verbal Instruction Patient Response: Verbalized Understanding Topics: Plan/Goals of PT Interventions;Mobility Progression;Ambulate With Nursing ASSESSMENT/PROGRESS: Assessment/Progress Assessment/Progress: Patient current status and level of safety suggests progression of activity can be achieved with nursing and/or family and does not require physical therapist intervention AM-PAC 6 Clicks Basic Mobility Inpatient Turning from your back to your side while in a flat bed without using bed rails : None Moving from lying on your back to sitting on the side of a flatbed without using bedrails : None Moving to and from a bed to a chair (including a wheelchair): None Standing up from a chair using your arms (e.g. wheelchair, or bedside chair): None To walk in hospital room: None Climbing 3-5 steps with a railing: None Raw Score: 24 Standardized (T-scale) Score: 57.68 Basic Mobility CMS 0-100%: 0 CMS G Code Modifier for Basic Mobility: CH GOALS: Goals Goal Formulation: With Patient Pt Will Ambulate: Greater than 200 Feet, w/ No Device, w/ Stand By Assist, Met Pt Will Go Up / Down Stairs: 1-2 Stairs, w/ Stand By Assist (patient denies concerns with stairs) PLAN: Plan Plan Frequency: No Further Treatment RECOMMENDATIONS: PT Discharge Recommendations PT Discharge Recommendations: Home with Assistance (vs. Inpatient Psych due to safety) Equipment Recommendations: None Therapist: [place] [id number] Date: 11/27/2017 * Ta Gr MD - 11/27/2017 8:39 AM CDT Formatting of this note may be different from the original. PSYCHIATRY CONSULTATION PROGRESS NOTE Room/Bed: [id number]/ Admission Date: 11/21/2017 LOS: 6 days Consult type: Opinion Reason for Consult: Suicidal Ideations Assessment: 1. Suicide attempt 2. Intentional Overdose, Tylenol 3. Schizoaffective Disorder, Bipolar Type Other: 1. Acute Liver Injury 2/2 Tylenol OD 2. Type 1 DM 3. HCAP Recommendations: Continue Geodon 20mg BID w/ meals (must be taken with 500 cals for maximum absorption) If patient has severe agitation with imminent harm to self or others would recommend 2.5mg PO/IM Zyprexa Q6H (has not required) Continue CO, patient with continuing intermittent suicidal ideation and paranoid delusions of people coming after him Would NOT allow patient to leave against medical advice, if he attempts to elope would try redirection or call BRT. Patient transferred to psych today Seen and discussed with: Dr. Vidales. Please feel free to contact us with any additional questions or concerns by paging the consult team between 8am and 5pm on weekdays and between 8am and 3pm on weekends at [phone]. 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 Subjective: Patient seen today in his room. He is agreeable to psych admission. He currently denies current SI or HI. He admits to paranoid delusions of feeling people are after him. Hospital Medications: Scheduled Meds: amoxicillin/K clavulanate (AUGMENTIN) tablet 875 mg 875 mg Oral BID w/meals ascorbic acid (VITAMIN C) tablet 500 mg 500 mg Oral QDAY aspirin chewable tablet 81 mg 81 mg Oral QDAY carvedilol (COREG) tablet 3.125 mg 3.125 mg Oral BID enoxaparin (LOVENOX) syringe 40 mg 40 mg Subcutaneous QDAY(21) folic acid (FOLVITE) tablet 1 mg 1 mg Oral QDAY insulin aspart U-100 (NOVOLOG FLEXPEN) injection PEN 0-7 Units 0-7 Units Subcutaneous ACHS insulin aspart U-100 (NOVOLOG FLEXPEN) injection PEN 10 Units 10 Units Subcutaneous TID w/ meals insulin glargine (LANTUS SOLOSTAR, BASAGLAR) injection PEN 28 Units 28 Units Subcutaneous QHS(22) lactobacillus rhamnosus GG (CULTURELLE) 15 billion cell capsule 1 capsule 1 capsule Oral BID w/meals lidocaine (LIDODERM) 5 % topical patch 1 patch 1 patch Topical QDAY lisinopril (PRINIVIL; ZESTRIL) tablet 5 mg 5 [address] QDAY pantop[address]ole DR (PROTONIX) tablet 40 mg 40 mg Oral QDAY(21) potassium chloride SR (K-DUR) tablet 40 mEq 40 mEq Oral ONCE vitamins, B complex tablet 1 tablet 1 tablet Oral QDAY ziprasidone (GEODON) capsule 20 mg 20 mg Oral BID w/meals Continuous Infusions: PRN and Respiratory Meds:hyoscyamine Q4H PRN, loperamide PRN, OLANZapine Q6H PRN , ondansetron Q4H PRN, phenol PRN Allergies: Keflex [cephalexin] and Erythromycin Review of Systems: A 14 point review of systems was negative except for: Constitutional: positive for fatigue Psychiatry: positive for paranoid delusions Vital Signs: Last Filed in 24 hours Vital Signs: 24 hour Range BP: 120/66 (11/27 737) Temp: 36.9 C (98.5 F) (11/27 737) Pulse: 75 (11/27 737) Respirations: 18 PER MINUTE (11/27 737) SpO2: 94 % (11/27 737) O2 Delivery: None (Room Air) (11/27 737) BP: (107-120)/(54-71) Temp: [36.7 C (98 F)-37.2 C (98.9 F)] Pulse: [72-86] Respirations: [16 PER MINUTE-18 PER MINUTE] SpO2: [94 %-96 %] O2 Delivery: None (Room Air) Mental Status Evaluation: General/Constitutional: WM, ill appearing, poor dentition, somnolent, cooperative with interview Eye Contact: fair Behavior: sitting in bed bed, calm Speech: Soft volume, normal tone, fair articulation Mood: "I'm ok" Affect: restricted Thought Process: Linear and goal directed Thought Content: Reports intermittent SI. None current Perception: Reports paranoid delusions but no AVH Associations: No loose associations Insight/Judgment: Fair/Good Orientation: x4 Recent and remote memory: fair Attention span and concentration: fair Cognition: fair Language: [employer] of knowledge and vocabulary: appropriate Focused Physical Exam: Neuro: somnolent, TD noted (facial grimacing) Musculoskeletal: moves upper extremities spontaneously Lab/Radiology/Other Diagnostic Tests: 24-hour labs: Results for orders placed or performed during the hospital encounter of (from the past 24 hour(s)) POC GLUCOSE Collection Time: 11/26/17 9:09 AM Result Value Ref Range Glucose, POC 121 (H) 70 - 100 MG/DL POC GLUCOSE Collection Time: 11/26/17 11:43 AM Result Value Ref Range Glucose, POC 134 (H) 70 - 100 MG/DL POC GLUCOSE Collection Time: 11/26/17 5:21 PM Result Value Ref Range Glucose, POC 156 (H) 70 - 100 MG/DL POC GLUCOSE Collection Time: 11/26/17 9:00 PM Result Value Ref Range Glucose, POC 165 (H) 70 - 100 MG/DL POC GLUCOSE Collection Time: 11/27/17 3:16 AM Result Value Ref Range Glucose, POC 198 (H) 70 - 100 MG/DL PROTIME INR (PT) Collection Time: 11/27/17 4:35 AM Result Value Ref Range INR 1.0 0.8 - 1.2 CBC AND DIFF Collection Time: 11/27/17 4:35 AM Result Value Ref Range White Blood Cells 10.0 [...] Basophil Count 0.00 0 - 0.20 K/UL COMPREHENSIVE METABOLIC PANEL Collection Time: 11/27/17 4:35 AM Result Value Ref Range Sodium 142 137 - [...] >60 >60 mL/min eGFR >60 >60 mL/min MAGNESIUM Collection Time: 11/27/17 4:35 AM Result Value Ref Range Magnesium 1.9 1.6 - 2.6 mg/dL PHOSPHORUS Collection Time: 11/27/17 4:35 AM Result Value Ref Range Phosphorus 3.3 2.0 - 4.0 MG/DL POC GLUCOSE Collection Time: 11/27/17 7:12 AM Result Value Ref Range Glucose, POC 159 (H) 70 - 100 MG/DL Ta Gr MD Pager [phone] Associated attestation - Maggie Vidales MD - 11/27/2017 4:58 PM CDT Formatting of this note may [...] and between 8am and 3pm on weekends [phone]. 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 Staff name: Maggie Vidales MD Date: 11/27/2017 * Kwaku Montiel MD - 11/26/2017 6:10 PM CDT Formatting of this note may be different from the original. Cardiology Progress Note Admission Date: 11/21/2017 ATT: I have discussed with fellow and examined patient and agree with assessment and plan and exam No s3, rales, trace le edema. Needsslightly ore diuresis and medical management of LV dysfunction Assessment/Plan: Krunal Bertrand is a 47 y.o. 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 He is mildly volume up on exam currently. Creatinine has normalized. BP is now normal range. Recommendations: 1. Lasix 20 mg IV again today. 2. Continue lisinopril 5 mg daily. 3. Add carvedilol 3.125 mg BID today. 4. Plan for repeat echocardiogram to reassess LVEF as he nears discharge. 5. Given multiple comorbiditiies will not pursue ischemic evaluation this admission. Plan for thallium stress test after discharge if LVEF remains depressed. Would start ASA 81 mg daily. Patient evaluated with Dr. Dinesh Sinclair MD [id number] Subjective: Received 20 mg IV lasix yesterday with excellent urine output. BP is tolerating lisinopril 5 mg. He says he feels much better today and says bilateral lower extremity edema has improved. He still denies chest pain. Denies shortness of breath today. Net negative 4.3 L yesterday, still net + 3L for the hospitalization. Review of Systems: review of systems was negative execept for what was noted in the subjective section. Objective: Physical Exam: Vital Signs BP: 114/59 (11/26 1499) Temp: 36.7 C (98.1 F) (11/26 1499) Pulse: 86 (11/26 1499) Respirations: 16 PER MINUTE (11/26 1499) SpO2: 96 % (11/26 1499) O2 Delivery: None (Room Air) (11/26 1499) General: awake & oriented, no acute distress Head: normocephalic, atraumatic Eyes: non-icteric, clear conjunctivae, PERRL Mouth: moist mucus membranes, clear posterior oropharynx Neck: supple, no lymphadenopathy, no carotid bruits, no JVD but + HJR CV: regular rate, normal rhythm, normal S1/S2, no murmurs, rubs, gallops, or clicks Lungs: clear to ausculation bilaterally, no wheezes/rhonchi/crackles Abdomen: normoactive bowel sounds, soft, non-tender, non-distended Extremities: No clubbing, cyanosis, or edema Neuro: no focal deficits Medications: Scheduled Meds: amoxicillin/K clavulanate (AUGMENTIN) tablet 875 mg 875 mg Oral BID w/meals ascorbic acid (VITAMIN C) tablet 500 mg 500 mg Oral QDAY aspirin chewable tablet 81 mg 81 mg Oral QDAY carvedilol (COREG) tablet 3.125 mg 3.125 mg Oral BID enoxaparin (LOVENOX) syringe 40 mg 40 mg Subcutaneous QDAY(21) folic acid (FOLVITE) tablet 1 mg 1 mg Oral QDAY insulin aspart U-100 (NOVOLOG FLEXPEN) injection PEN 0-7 Units 0-7 Units Subcutaneous ACHS insulin aspart U-100 (NOVOLOG FLEXPEN) injection PEN 10 Units 10 Units Subcutaneous TID w/ meals insulin glargine (LANTUS SOLOSTAR, BASAGLAR) injection PEN 28 Units 28 Units Subcutaneous QHS(22) lactobacillus rhamnosus GG (CULTURELLE) 15 billion cell capsule 1 capsule 1 capsule Oral BID w/meals lidocaine (LIDODERM) 5 % topical patch 1 patch 1 patch Topical QDAY lisinopril (PRINIVIL; ZESTRIL) tablet 5 mg 5 mg Oral QDAY pantoprazole (PROTONIX) injection 40 mg 40 mg Intravenous QDAY vitamins, B complex tablet 1 tablet 1 tablet Oral QDAY ziprasidone (GEODON) capsule 20 mg 20 mg Oral BID w/meals Continuous Infusions: PRN and Respiratory Meds:hyoscyamine Q4H PRN, loperamide PRN, OLANZapine Q6H PRN , ondansetron Q4H PRN, phenol PRN, polyethylene glycol 3350 QDAY PRN Lab/Radiology/Other Diagnostic Tests: Labs: Pertinent labs reviewed Radiology: Pertinent radiology reviewed * Viola Santa - 11/26/2017 5:29 PM CDT CLINICAL NUTRITION Clinical Nutrition Follow-Up Summary Nutrition Assessment of Patient: Current Oral Intake: Adequate Estimated Calorie Needs: 1770 (25 kcal/kg 70.7 kg ) Estimated Protein Needs: 78 (1.1g/kg 70.7kg) Oral Diet Order: Diabetic 4615-5081 Kcal/day (60 g Carb/meal, 30 g Carb/HS snack ) 47yoM with PMH type 1 DM, gastric fundiplication, schizophrenia, bipolar, previous SI who was found unresponsive 11/20 in DKA, and was found to have elevated tylenol level and transferred to for further care. EN infused for just a few hours before pt self extubated 11/21, transferred to the floor 11/23. FLD reached yesterday and DM diet reached today. Pt reports good appetite/PO intake. Lunch consisted of tator tots and a hamburger. [employer], he consumed 3 meals daily but did not count carbs and does not have knowledge of DM diet principles. Glu 64-357mg/dL past 24 hours. A1c 10.1. No n/v issues. Provided DM diet education reviewing carb sources, food groups, [facility] DM menu, balanced meal intake, serving size=15g carbs. Pt denied need for reviewing nutrition label. CO remains on bedside. Recommendation: REC cont current diet as ordered Intervention / Plan: Assessed adequacy/tolerance of intakes DM diet edu Nutrition Diagnosis: Nutrition Diagnosis: Inadequate protein-energy intake Etiology: vent, medical status Signs & Symptoms: NPO, pending EN start (resolved) Goals: EN tolerated and meeting >85% of nutritional needs Time Frame: Within 24 Hours Status: no longer appropriate Carmen Santa RD, LD, CNSC *[facility] office [phone] * Deloris Barrera MD - 11/26/2017 2:05 PM CDT Formatting of this note may be different from the original. General Progress Note Name: Krunal Bertrand Today's Date: 11/26/2017 Admission Date: 11/21/2017 LOS: 5 days Assessment/Plan: Active Problems: Type 1 diabetes mellitus with complication (HCC) Diabetic ketoacidosis associated with type 1 diabetes mellitus (HCC) Tylenol overdose Schizophrenia (HCC) Bipolar disorder (HCC) 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) Acute encephalopathy Shock (HCC) On mechanically assisted ventilation (HCC) Liver injury NORMA (acute kidney injury) (HCC) Streptococcal pneumonia (HCC) Acute pancreatitis Krunal Bertrand is a 47 y.o. male with a PMH of DM1 w/ hx DKA, fundoplication, bipolar/schizophrenia, depression w/ hx SI. He presented to [facility] on 11[facility] for AMS & was found to be in DKA & had an ALI. He was found with an empty bottle of Tylenol, unclear amount ingested but possibly 85 grams, level at OSH was 295 & started on NAC. He was intubated d/t AMS & DKA was treated w/ IVF/insulin prior to tx to . ALI now appears to be improving w/ down trend in both LFTs & INR. Hepatology consulted & treated with NAC. DKA now resolved and continues on an insulin drip. Self extubated 11/21. Acute Liver Injury due to Acetaminophen Overdose - Unknown amount of tyl ingested; possibly #170 of 500mg tabs or 85 grams - At OSH: TYL level 295, AST 1361, ALT 761, Tbili 0.2, INR 1.6, Etoh/UDS/TCA - Neg & started on NAC - Abd US 11/21 - mild hepatomegaly, diffuse hepatic steatosis, patent hepatic vessels; small volume ascites - Ceruloplasmin is low, unremarkable hep panel, HSV, CMV, HIV, EBV, zoster, DANIKA , AMA, ASM-ab, alpha-1. 24 hr urine copper ordered and pending - CT A/p 11/22: moderate stranding consistent w/ pancreatitis without organized fluid collection. Small effusions, small L renal hypodensity possible cyst. - Tylenol level neg. INR normalized - AST/ALT downtrending - S/p 3 doses Vit K - Stopped IV NAC and Rifaximin per Hepatology - Hepatology consulted DM1 with DKA - At OSH: BG >1000, bicarb 2, A & AB.8/13/164/2 - A1c 11/21 - 10.1 - [employer] Lantus 30U QHS, Aspart 25U with meals - Insulin drip now stopped and back on Lantus 30U QHS. Mild AM hypoglycemia - decrease to Lantus 28U QHS - Advanced diet. Will restart mealtime Aspart - lower dose to 10U given reported issues with hypoglycemia at home along with decreased PO intake - can titrate up as tolerated - LDCF - music educator consulted Acute Pancreatitis - Lipase elevated on admission at 935 -> 908 -> 269 - CT A/P with peripancreatic stranding without fluid collection - IgG4 ordered - Plan for outpatient EUS in 6 wks - Continues to have some abd pain but improving - Lidocaine patch; Hyoscyamine PRN - Advance to solid diet - Continue PPI - IVF - stopped as abd pain improving and given CHF Sepsis due to Strep Pneumo Pneumonia - 08/03 SIRS - WBC 24.0, tachypnea, now normalized. No fevers - CXR - no focal infiltrate - CT A/P showing patchy lower lung consolidations and small bilateral pleural effusions - Blood cx NGTD - Tracheal aspirate positive for strep pneumo, gann-sensitive - Stop Zosyn (started 11/22) and changed to Augmentin on 11/24. Plan for 7 day course Acute Toxic-Metabolic Encephalopathy - Likely multifactorial from overdose, NORMA, ALI - CT head unremarkable - Intubated for airway protection; had normal blood gas; self-extubated 11/22, now on RA - Now resolved Schizoaffective Disorder, Bipolar Type with Intentional Overdose - Admitted for suicide attempt from Tylenol overdose - Holding [employer] fluoxitine & haldol - Started on Geodon - Zyprexa PRN - CO in place - Psych consulted Hypovolemic Shock - Resolved - Likely secondary to acute liver injury and hypovolemia 2/2 DKA - LA 2.9 to 1.1 - Required Levophed in ICU, now off since 11/21 Acute Systolic/Diastolic CHF, Troponin elevation - No previous echo for comparison - Echo 11/21 shows LVEF 35-40%, diffuse hypokenesis, grade 1 diastolic dysfunction, normal R side, normal valves - EKG - w/o ST changes - Trop - 0.21 - 0.33 - 1.58 -1.18 - BNP 458 - CXR with small bilateral pleural effusions on imaging (could be related to pneumonia and pancreatitis). On RA - Not on beta gorge or CYNDI/ARB due to renal dysfunction and hypotension on admit - Lasix 20 IV given once. Stopped IVF - Started Lisinopril and Carvedilol - Start baby ASA. No Statin for now given liver dysfunction - Will need a repeat Echo near discharge - Plan for stress test as outpatient - Cardiology consult NORMA - Cr up to 1.9 - Now normalized, likely from shock, hypovolemia, ALI, DKA Diarrhea - C diff neg - Likely from abx and bowel regimen - Stopped Miralax - Probiotic started; Imodium if needed Proph - SCDs, Lovenox FEN - Diabetic diet - IVF - none - Mag & K replaced Dispo - Full code - Continue inpatient hospitalization - PT/OT - Anticipating inpatient psych stay. Cannot leave AMA Subjective Krunal Bertrand is a 47 y.o. male. No events. Reports doing well with liquids and would like to try solid foods. Abd pain in RUQ continues to improve. Mild nausea but no emesis. Still having loose stools, just tried Imodium. ROS: Gen - No fever Resp - No dyspnea, cough CV - No chest pain Skin - No rash Medications Scheduled Meds: amoxicillin/K clavulanate (AUGMENTIN) tablet 875 mg 875 mg Oral BID w/meals ascorbic acid (VITAMIN C) tablet 500 mg 500 mg Oral QDAY aspirin chewable tablet 81 mg 81 mg Oral QDAY carvedilol (COREG) tablet 3.125 mg 3.125 mg Oral BID enoxaparin (LOVENOX) syringe 40 mg 40 mg Subcutaneous QDAY(21) folic acid (FOLVITE) tablet 1 mg 1 mg Oral QDAY insulin aspart U-100 (NOVOLOG FLEXPEN) injection PEN 0-7 Units 0-7 Units Subcutaneous ACHS insulin aspart U-100 (NOVOLOG FLEXPEN) injection PEN 10 Units 10 Units Subcutaneous TID w/ meals insulin glargine (LANTUS SOLOSTAR, BASAGLAR) injection PEN 28 Units 28 Units Subcutaneous QHS(22) lactobacillus rhamnosus GG (CULTURELLE) 15 billion cell capsule 1 capsule 1 capsule Oral BID w/meals lidocaine (LIDODERM) 5 % topical patch 1 patch 1 patch Topical QDAY lisinopril (PRINIVIL; ZESTRIL) tablet 5 mg 5 mg Oral QDAY pantoprazole (PROTONIX) injection 40 mg 40 mg Intravenous QDAY vitamins, B complex tablet 1 tablet 1 tablet Oral QDAY ziprasidone (GEODON) capsule 20 mg 20 mg Oral BID w/meals Continuous Infusions: PRN and Respiratory Meds:hyoscyamine Q4H PRN, loperamide PRN, OLANZapine Q6H PRN , ondansetron Q4H PRN, phenol PRN, polyethylene glycol 3350 QDAY PRN Objective Vital Signs: Last Filed Vital Signs: 24 Hour Range BP: 110/62 (11/26 1120) Temp: 37 C (98.6 F) (11/26 1120) Pulse: 78 (11/26 1120) Respirations: 16 PER MINUTE (11/26 1120) SpO2: 94 % (11/26 1120) O2 Delivery: None (Room Air) (11/26 1120) BP: (110-142)/(55-78) Temp: [36.3 C (97.3 F)-37.2 C (98.9 F)] Pulse: [71-81] Respirations: [16 PER MINUTE-17 PER MINUTE] SpO2: [94 %-98 %] O2 Delivery: None (Room Air) Intensity Pain Scale 0-10 (Pain 1): Asleep (11/26/17 0338) Vitals: 11/24/17 1212 11/25/17 1545 11/26/17 0338 Weight: 73.6 kg (162 lb 4.1 oz) 84 kg (185 lb 3 oz) 79.8 kg (176 lb) Intake/Output Summary: (Last 24 hours) Intake/Output Summary (Last 24 hours) at 11/26/17 1405 Last data filed at 11/26/17 1311 Gross per 24 hour Intake 2472 ml Output 5900 ml Net -3428 ml Stool Occurrence: 1 Physical Exam Gen - Alert, NAD, cooperative, calm Chest - CTAB CV - RRR, no m/r/g Abd - Soft, mild TTP in epigastrium/RUQ, ND, +BS Ext - Trace BLE edema, warm, well-perfused Skin - No rash Lab Review Daily Labs Reviewed Point of Care Testing (Last 24 hours) Glucose: 96 (11/26/17 0511) POC Glucose (Download): (!) 134 (11/26/17 1143) Radiology and other Diagnostics Review: Pertinent radiology reviewed. Deloris Barrera MD Pager [phone] * Ta Gr MD - 11/26/2017 1:35 PM CDT Formatting of this note may be different from the original. PSYCHIATRY CONSULTATION PROGRESS NOTE Room/Bed: [place] [address] Admission Date: 11/21/2017 LOS: 5 days Consult type: Opinion Reason for Consult: Suicidal Ideations Assessment: 1. Suicide attempt 2. Intentional Overdose, Tylenol 3. Schizoaffective Disorder, Bipolar Type Other: 1. Acute Liver Injury 2/2 Tylenol OD 2. Type 1 DM 3. HCAP Recommendations: Will start Geodon 20mg BID w/ meals (must be taken with 500 cals for maximum absorption) If patient has severe agitation with imminent harm to self or others would recommend 2.5mg PO/IM Zyprexa Q6H (has not required) Continue CO, patient with continuing intermittent suicidal ideation Would NOT allow patient to leave against medical advice, if he attempts to elope would try redirection or call BRT. Will plan to admit to psych once blood sugars more stable off SSI Psychiatry to follow Discussed with: Dr. Lizarraga. Please feel free to contact us with any additional questions or concerns by paging the consult team between 8am and 5pm on weekdays and between 8am and 3pm on weekends at [phone]. 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 Subjective: Patient seen today in his room. He has been transferred to the floor. Denies current SI or HI. Denies AVH. Agreeable to psych admission once medically stable. He continues to feel like people are after him. Hospital Medications: Scheduled Meds: amoxicillin/K clavulanate (AUGMENTIN) tablet 875 mg 875 mg Oral BID w/meals ascorbic acid (VITAMIN C) tablet 500 mg 500 mg Oral QDAY aspirin chewable tablet 81 mg 81 mg Oral QDAY enoxaparin (LOVENOX) syringe 40 mg 40 mg Subcutaneous QDAY(21) folic acid (FOLVITE) tablet 1 mg 1 mg Oral QDAY insulin aspart U-100 (NOVOLOG FLEXPEN) injection PEN 0-7 Units 0-7 Units Subcutaneous ACHS insulin aspart U-100 (NOVOLOG FLEXPEN) injection PEN 10 Units 10 Units Subcutaneous TID w/ meals insulin glargine (LANTUS SOLOSTAR, BASAGLAR) injection PEN 28 Units 28 Units Subcutaneous QHS(22) lactobacillus rhamnosus GG (CULTURELLE) 15 billion cell capsule 1 capsule 1 capsule Oral BID w/meals lidocaine (LIDODERM) 5 % topical patch 1 patch 1 patch Topical QDAY lisinopril (PRINIVIL; ZESTRIL) tablet 5 mg 5 mg Oral QDAY pantoprazole (PROTONIX) injection 40 mg 40 mg Intravenous QDAY vitamins, B complex tablet 1 tablet 1 tablet Oral QDAY ziprasidone (GEODON) capsule 20 mg 20 mg Oral BID w/meals Continuous Infusions: PRN and Respiratory Meds:hyoscyamine Q4H PRN, loperamide PRN, OLANZapine Q6H PRN , ondansetron Q4H PRN, phenol PRN, polyethylene glycol 3350 QDAY PRN Allergies: Keflex [cephalexin] and Erythromycin Review of Systems: A 14 point review of systems was negative except for: Constitutional: positive for fatigue Psychiatry: positive for paranoid delusions Vital Signs: Last Filed in 24 hours Vital Signs: 24 hour Range BP: 110/62 (11/26 1120) Temp: 37 C (98.6 F) (11/26 1120) Pulse: 78 (11/26 1120) Respirations: 16 PER MINUTE (11/26 1120) SpO2: 94 % (11/26 1120) O2 Delivery: None (Room Air) (11/27 1119) BP: (110-142)/(55-78) Temp: [36.3 C (97.3 F)-37.2 C (98.9 F)] Pulse: [71-81] Respirations: [16 PER MINUTE-17 PER MINUTE] SpO2: [94 %-98 %] O2 Delivery: None (Room Air) Mental Status Evaluation: General/Constitutional: WM, ill appearing, poor dentition, somnolent, cooperative with interview Eye Contact: Poor Behavior: Laying bed, calm Speech: Soft volume, normal tone, fair articulation Mood: "I'm doing a little better" Affect: Blunted Thought Process: Linear and goal directed Thought Content: Reports intermittent SI. None current Perception: Reports paranoid delusions but no AVH Associations: No loose associations Insight/Judgment: Fair/Good Orientation: x4 Recent and remote memory: fair Attention span and concentration: fair Cognition: fair Language: [employer] of knowledge and vocabulary: appropriate Focused Physical Exam: Neuro: somnolent, TD noted (facial grimacing) Musculoskeletal: moves upper extremities spontaneously Lab/Radiology/Other Diagnostic Tests: 24-hour labs: Results for orders placed or performed during the hospital encounter of (from the past 24 hour(s)) POC GLUCOSE Collection Time: 11/25/17 5:01 PM Result Value Ref Range Glucose, POC 357 (H) 70 - 100 MG/DL POC GLUCOSE Collection Time: 11/25/17 5:05 PM Result Value Ref Range Glucose, POC 337 (H) 70 - 100 MG/DL POC GLUCOSE Collection Time: 11/25/17 8:57 PM Result Value Ref Range Glucose, POC 242 (H) 70 - 100 MG/DL POC GLUCOSE Collection Time: 11/26/17 2:55 AM Result Value Ref Range Glucose, POC 107 (H) 70 - 100 MG/DL PROTIME INR (PT) Collection Time: 11/26/17 5:11 AM Result Value Ref Range INR 1.1 0.8 - 1.2 PHOSPHORUS Collection Time: 11/26/17 5:11 AM Result Value Ref Range Phosphorus 2.4 2.0 - 4.0 MG/DL MAGNESIUM Collection Time: 11/26/17 5:11 AM Result Value Ref Range Magnesium 1.7 1.6 - 2.6 mg/dL CBC AND DIFF Collection Time: 11/26/17 5:11 AM Result Value Ref Range White Blood Cells 9.3 4.5 - 11.0 K/UL RBC 3.56 (L) 4.4 - 5.5 M/UL Hemoglobin 10.5 (L) 13.5 - 16.5 GM/DL Hematocrit 31.8 (L) 40 - 50 % MCV 89.2 80 - 100 FL MCH 29.4 26 - 34 PG MCHC 33.0 32.0 - 36.0 G/DL RDW 13.6 11 - 15 % Platelet Count 220 150 - 400 K/UL MPV 8.0 7 - 11 FL Neutrophils 69 41 - 77 % Lymphocytes 20 (L) 24 - 44 % Monocytes 9 4 - 12 % Eosinophils 2 0 - 5 % Basophils 0 0 - 2 % Absolute Neutrophil Count 6.30 1.8 - 7.0 K/UL Absolute Lymph Count 1.90 1.0 - 4.8 K/UL Absolute Monocyte Count 0.90 (H) 0 - 0.80 K/UL Absolute Eosinophil Count 0.20 0 - 0.45 K/UL Absolute Basophil Count 0.00 0 - 0.20 K/UL COMPREHENSIVE METABOLIC PANEL Collection Time: 11/26/17 5:11 AM Result Value Ref Range Sodium 141 137 - 147 MMOL/L Potassium 3.1 (L) 3.5 - 5.1 MMOL/L Chloride 107 98 - 110 MMOL/L Glucose 96 70 - 100 MG/DL Blood Urea Nitrogen 2 (L) 7 - 25 MG/DL Creatinine 0.65 0.4 - 1.24 MG/DL Calcium 9.1 8.5 - 10.6 MG/DL Total Protein 5.6 (L) 6.0 - 8.0 G/DL Total Bilirubin 0.3 0.3 - 1.2 MG/DL Albumin 3.0 (L) 3.5 - 5.0 G/DL Alk Phosphatase 88 25 - 110 U/L AST (SGOT) 64 (H) 7 - 40 U/L CO2 27 21 - 30 MMOL/L ALT (SGPT) 396 (H) 7 - 56 U/L Anion Gap 7 3 - 12 eGFR Non >60 >60 mL/min eGFR >60 >60 mL/min POC GLUCOSE Collection Time: 11/26/17 7:50 AM Result Value Ref Range Glucose, POC 64 (L) 70 - 100 MG/DL POC GLUCOSE Collection Time: 11/26/17 9:09 AM Result Value Ref Range Glucose, POC 121 (H) 70 - 100 MG/DL POC GLUCOSE Collection Time: 11/26/17 11:43 AM Result Value Ref Range Glucose, POC 134 (H) 70 - 100 MG/DL Ta rG MD Pager [phone] Associated attestation - Marlen Lizarraga MD - 11/26/2017 7:34 PM CDT Formatting of this note may [...] and between 8am and 3pm on weekends [phone]. 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 Staff name: Marlen Lizarraga MD Date: 11/26/2017 * Ketan Zelaya RN - 11/25/2017 3:30 PM CDT Paged Psychiatry to see if staff could trial telesitter in place of CO to maintain patient safety. Dr. Gr stated that he would prefer to continue CO and will reassess patient for appropriateness tomorrow. * Radha Rich - 11/25/2017 2:19 PM CDT OCCUPATIONAL THERAPY NOTE Patient denies changes from baseline ADLs and functional mobility and reports no history of balance loss or falls in the last three months. Patient has not had a procedure or surgery that would make getting dressed difficult, including putting on socks and shoes. Patient has not demonstrated or reported new difficulties with vision when completing functional tasks. Patient endorses no concerns with functional skills at home. Currently, the patient is ambulating (in room/ on unit) without difficulty. Encouraged patient to continue to perform functional skills/ADLs while in the hospital and discussed the ability for the patient to complete their ADL s with the bedside nursing staff. Occupational therapy services will be discontinued at this time, please re-consult if the patient has a change in functional status. Therapist: Radha Rich OTR/Jl [id number] Date: 11/25/2017 * Deloris Barrera MD - 11/25/2017 1:57 PM CDT Formatting of this note may be different from the original. General Progress Note Name: Krunal Bertrand Today's Date: 11/25/2017 Admission Date: 11/21/2017 LOS: 4 days Assessment/Plan: Active Problems: Type 1 diabetes mellitus with complication (HCC) Diabetic ketoacidosis associated with type 1 diabetes mellitus (HCC) Tylenol overdose Schizophrenia (HCC) Bipolar disorder (HCC) 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) Acute encephalopathy Shock (HCC) On mechanically assisted ventilation (HCC) Liver injury NORMA (acute kidney injury) (HCC) Streptococcal pneumonia (HCC) Acute pancreatitis Krunal Bertrand is a 47 y.o. male with a PMH of DM1 w/ hx DKA, fundoplication, bipolar/schizophrenia, depression w/ hx SI. He presented to [facility] on 11/20 for AMS & was found to be in DKA & had an ALI. He was found with an empty bottle of Tylenol, unclear amount ingested but possibly 85 grams, level at OSH was 295 & started on NAC. He was intubated d/t AMS & DKA was treated w/ IVF/insulin prior to tx to . ALI now appears to be improving w/ down trend in both LFTs & INR. Hepatology consulted & treated with NAC. DKA now resolved and continues on an insulin drip. Self extubated 11/21. Acute Liver Injury due to Acetaminophen Overdose - Unknown amount of tyl ingested; possibly #170 of 500mg tabs or 85 grams - At OSH: TYL level 295, AST 1361, ALT 761, Tbili 0.2, INR 1.6, Etoh/UDS/TCA - Neg & started on NAC - Abd US 11/21 - mild hepatomegaly, diffuse hepatic steatosis, patent hepatic vessels; small volume ascites - Ceruloplasmin is low, unremarkable hep panel, HSV, CMV, HIV, EBV, zoster, DANIKA , AMA, ASM-ab, alpha-1. 24 hr urine copper ordered and pending - CT A/p 11/22: moderate stranding consistent w/ pancreatitis without organized fluid collection. Small effusions, small L renal hypodensity possible cyst. - Tylenol level neg. INR normalized - AST/ALT downtrending - S/p 3 doses Vit K - Stopped IV NAC and Rifaximin per Hepatology - Hepatology consulted DM1 with DKA - At OSH: BG >1000, bicarb 2, A & AB.8/13/164/2 - A1c 11/21 - 10.1 - [employer] Lantus 30U QHS, Aspart 25U with meals - Insulin drip now stopped and back on Lantus 30U QHS. Holding mealtime until able to take PO meals; hopefully can advance diet and restart tomorrow - LDCF - music educator consulted Acute Pancreatitis - Lipase elevated on admission at 935 -> 908 -> 269 - CT A/P with peripancreatic stranding without fluid collection - Check IgG4 - Plan for outpatient EUS in 6 wks - Continues to have some abd pain but improving - Lidocaine patch; Hyoscyamine PRN - Advance to full liquid diet - Continue PPI - IVF - stop as abd pain improving and given CHF Strep Pneumo Pneumonia - WBC 24.0 on admit, now normalized. No fevers - CXR - no focal infiltrate - CT A/P showing patchy lower lung consolidations and small bilateral pleural effusions - Blood cx NGTD - Tracheal aspirate positive for strep pneumo, gann-sensitive - Stop Zosyn (started 11/22) and changed to Augmentin on 11/24. Plan for 7 day course Acute Toxic-Metabolic Encephalopathy - Likely multifactorial from overdose, NORMA, ALI - CT head unremarkable - Intubated for airway protection; had normal blood gas; self-extubated 11/22, now on RA - Now resolved Schizoaffective Disorder, Bipolar Type with Intentional Overdose - Admitted for suicide attempt from Tylenol overdose - Holding [employer] fluoxitine & haldol - Zyprexa PRN - CO in place - Psych consulted Hypovolemic Shock - Resolved - Likely secondary to acute liver injury and hypovolemia 2/2 DKA - LA 2.9 to 1.1 - Required Levophed in ICU, now off since 11/21 Acute Systolic/Diastolic CHF, Troponin elevation - No previous echo for comparison - Echo 11/21 shows LVEF 35-40%, diffuse hypokenesis, grade 1 diastolic dysfunction, normal R side, normal valves - EKG - w/o ST changes - Trop - 0.21 - 0.33 - 1.58 -1.18 - BNP 458 - CXR with small bilateral pleural effusions on imaging (could be related to pneumonia and pancreatitis). On RA - Not on beta gorge or CYNDI/ARB due to renal dysfunction and hypotension on admit - Lasix 20 IV today. Stopped IVF - Started Lisinopril. If BP tolerates, plan to start Carvedilol - Start baby ASA. No Statin for now given liver dysfunction - Will need a repeat Echo near discharge - Plan for stress test as outpatient - Cardiology consult NORMA - Cr up to 1.9 - Now normalized, likely from shock, hypovolemia, ALI, DKA Diarrhea - C diff neg - Likely from abx and bowel regimen - Stopped Miralax - Probiotic started; Imodium if needed Proph - SCDs, Lovenox FEN - Full liquids - IVF - none - Mag & K replaced Dispo - Full code - Continue inpatient hospitalization - PT/OT - Anticipating inpatient psych stay. Cannot leave AMA Subjective Krunal Bertrand is a 47 y.o. male. Reports RUQ and epigastric abd pain continues to improve. Tolerating liquids. No dyspnea or chest pain. ROS: Gen - No fever Resp - No dyspnea, cough CV - No chest pain Skin - No rash Medications Scheduled Meds: amoxicillin/K clavulanate (AUGMENTIN) tablet 875 mg 875 mg Oral BID w/meals ascorbic acid (VITAMIN C) tablet 500 mg 500 mg Oral QDAY enoxaparin (LOVENOX) syringe 40 mg 40 mg Subcutaneous QDAY(21) folic acid (FOLVITE) tablet 1 mg 1 mg Oral QDAY furosemide (LASIX) injection 20 mg 20 mg Intravenous ONCE insulin aspart U-100 (NOVOLOG FLEXPEN) injection PEN 0-7 Units 0-7 Units Subcutaneous ACHS insulin glargine (LANTUS SOLOSTAR, BASAGLAR) injection PEN 30 Units 30 Units Subcutaneous QHS(22) lactobacillus rhamnosus GG (CULTURELLE) 15 billion cell capsule 1 capsule 1 capsule Oral BID w/meals lidocaine (LIDODERM) 5 % topical patch 1 patch 1 patch Topical QDAY lisinopril (PRINIVIL; ZESTRIL) tablet 5 mg 5 mg Oral QDAY pantoprazole (PROTONIX) injection 40 mg 40 mg Intravenous QDAY potassium chloride SR (K-DUR) tablet 20 mEq 20 mEq Oral ONCE rifAXIMin (XIFAXAN) tablet 550 mg 550 mg Oral BID vitamins, B complex tablet 1 tablet 1 tablet Oral QDAY Continuous Infusions: PRN and Respiratory Meds:hyoscyamine Q4H PRN, loperamide PRN, OLANZapine Q6H PRN , ondansetron Q4H PRN, phenol PRN, polyethylene glycol 3350 QDAY PRN Objective Vital Signs: Last Filed Vital Signs: 24 Hour Range BP: 133/75 (11/25 1133) Temp: 37.2 C (98.9 F) (11/25 1133) Pulse: 84 (11/25 1133) Respirations: 18 PER MINUTE (11/25 1133) SpO2: 95 % (11/25 1133) O2 Delivery: None (Room Air) (11/25 1133) BP: (119-135)/(65-75) Temp: [36.9 C (98.5 F)-37.4 C (99.4 F)] Pulse: [79-86] Respirations: [18 PER MINUTE] SpO2: [94 %-100 %] O2 Delivery: None (Room Air) Intensity Pain Scale 0-10 (Pain 1): 8 (11/25/17 0845) Vitals: 11/20/17 2300 11/21/17 1037 11/24/17 1212 Weight: 70.7 kg (155 lb 13.8 oz) 70.7 kg (155 lb 13.8 oz) 73.6 kg (162 lb 4.1 oz ) Intake/Output Summary: (Last 24 hours) Intake/Output Summary (Last 24 hours) at 11/25/17 1357 Last data filed at 11/25/17 1136 Gross per 24 hour Intake 3382 ml Output 3450 ml Net -68 ml Stool Occurrence: 1 Physical Exam Gen - Alert, NAD, cooperative, calm Chest - CTAB CV - RRR, no m/r/g Abd - Soft, mild TTP in epigastrium/RUQ, ND, +BS Ext - Trace BLE edema, warm, well-perfused Skin - No rash Lab Review Daily Labs Reviewed Point of Care Testing (Last 24 hours) Glucose: (!) 143 (11/25/17 0340) POC Glucose (Download): (!) 171 (11/25/17 1216) Radiology and other Diagnostics Review: Pertinent radiology reviewed. Deloris Barerra MD Pager [phone] * Daniel York MBBS - 11/25/2017 12:09 PM CDT Formatting of this note may be different from the original. General Progress Note Name: Krunal Bertrand Today's Date: 11/25/2017 Admission Date: 11/21/2017 LOS: 4 days Assessment/Plan: Mr. Bertrand is a 47-year-old male with history of type 1 diabetes, major depression,? Bipolar/schizophrenia, history of suicidal ideation who was transferred from [facility] with DKA and acute liver injury/ failure secondary to excessive Tylenol intake. Hepatology was consulted for comanagement and further recommendations. 1) Acute liver injury/ failure: AST 822, AST 675, alk phos 103, INR 1.6 on outside hospital which is improved to 1.2. Tylenol level 296 on 11/20 and 36 on arrival to . Unclear what time patient ingested Tylenol but his mother found empty bottle of extra strength Tylenol near him. Intubated on arrival to [facility] but his encephalopathy is most likely multifactorial and DKA is playing a part as well. He has history of suicidal ideation, uncontrolled depression,? Bipolar and schizophrenia. He was started on NAC at outside hospital. Ammonia level 51. CT head with normal findings. Ultrasound abdomen revealed hepatomegaly and diffuse hepatic steatosis. Spleen size is 12 cm. 2) Acute interstitial pancreatitis: Symptoms of epigastric/ periumbilical abdominal pain (evenr after DKA resolved), nausea, lipase >900. Patient denied recent alcohol intake. CT scan abdomen with hilary-pancreas stranding. 3) Suicide attempt, history of suicide attempts. 4) Type 1 DM, DKA (resolved) 5) HFreF: LVEF 35-40%. Normal PAP and right sided system. 6) ? Bipolar/schizophrenia. Recommendations: - Check IgG4 to look for autoimmune pancreatitis, we will schedule patient for EUS as outpatient in 6 weeks to r/o pancreatic stricture/ mass. - Advance diet as tolerated. - NAC can be discontinued. - F/u 24 hour urine copper Patient seen and discussed with Dr. Harris. Daniel York MD Gastroenterology and Hepatology [phone] Subjective Krunal Bertrand is a 47 y.o. male No acute overnight events His abdominal pain is improving. Medications Scheduled Meds: amoxicillin/K clavulanate (AUGMENTIN) tablet 875 mg 875 mg Oral BID w/meals ascorbic acid (VITAMIN C) tablet 500 mg 500 mg Oral QDAY enoxaparin (LOVENOX) syringe 40 mg 40 mg Subcutaneous QDAY(21) folic acid (FOLVITE) tablet 1 mg 1 mg Oral QDAY insulin aspart U-100 (NOVOLOG FLEXPEN) injection PEN 0-7 Units 0-7 Units Subcutaneous ACHS insulin glargine (LANTUS SOLOSTAR, BASAGLAR) injection PEN 30 Units 30 Units Subcutaneous QHS(22) lactobacillus rhamnosus GG (CULTURELLE) 15 billion cell capsule 1 capsule 1 capsule Oral BID w/meals lidocaine (LIDODERM) 5 % topical patch 1 patch 1 patch Topical QDAY magnesium sulfate 1 g/D5W 100 mL IVPB 1 g Intravenous Q1H X 2DO pantoprazole (PROTONIX) injection 40 mg 40 mg Intravenous QDAY rifAXIMin (XIFAXAN) tablet 550 mg 550 mg Oral BID vitamins, B complex tablet 1 tablet 1 tablet Oral QDAY Continuous Infusions: lactated ringers infusion 125 mL/hr at 11/25/17 0330 PRN and Respiratory Meds:hyoscyamine Q4H PRN, loperamide PRN, OLANZapine Q6H PRN , ondansetron Q4H PRN, phenol PRN, polyethylene glycol 3350 QDAY PRN Objective: Vital Signs: Last Filed Vital Signs: 24 Hour Range BP: 133/75 (11/25 1134) Temp: 37.2 C (98.9 F) (11/25 1134) Pulse: 84 (11/25 1134) Respirations: 18 PER MINUTE (11/25 113) SpO2: 95 % (11/25 113) O2 Delivery: None (Room Air) (11/25 113) Height: 189.9 cm (74.76") (11/24 1212) BP: (119-135)/(65-75) Temp: [36.9 C (98.5 F)-37.6 C (99.7 F)] Pulse: [79-87] Respirations: [18 PER MINUTE] SpO2: [93 %-100 %] O2 Delivery: None (Room Air) Intensity Pain Scale 0-10 (Pain 1): 8 (11/25/17 0845) Vitals: 11/20/17 2300 11/21/17 1037 11/24/17 1212 Weight: 70.7 kg (155 lb 13.8 oz) 70.7 kg (155 lb 13.8 oz) 73.6 kg (162 lb 4.1 oz ) Intake/Output Summary: (Last 24 hours) Intake/Output Summary (Last 24 hours) at 11/25/17 1209 Last data filed at 11/25/17 1136 Gross per 24 hour Intake 3785 ml Output 3450 ml Net 335 ml Stool Occurrence: 1 Physical Exam General appearance: alert, cooperative and no distress Head: Normocephalic, atraumatic Eyes: No scleral icterus Oropharynx: No erythema, ulcers Neck: supple Lungs: clear to auscultation bilaterally Heart: regular rate and rhythm, S1, S2 normal, no murmur, click, rub or gallop Abdomen: Soft, tender in mid abdomen, non- distended, no masses palpable, no organomegaly, BS+ve Neurologic: No focal deficits Skin: no obvious rashes Musculoskeletal: No obvious joint inflammation Extremities: No pedal edema noted Lab Review 24-hour labs: Results for orders placed or performed during the hospital encounter of (from the past 24 hour(s)) POC GLUCOSE Collection Time: 11/24/17 4:51 PM Result Value Ref Range Glucose, POC 153 (H) 70 - 100 MG/DL POC GLUCOSE Collection Time: 11/24/17 8:43 PM Result Value Ref Range Glucose, POC 278 (H) 70 - 100 MG/DL POC GLUCOSE Collection Time: 11/25/17 3:35 AM Result Value Ref Range Glucose, POC 135 (H) 70 - 100 MG/DL PROTIME INR (PT) Collection Time: 11/25/17 3:40 AM Result Value Ref Range INR 1.1 0.8 - 1.2 PHOSPHORUS Collection Time: 11/25/17 3:40 AM Result Value Ref Range Phosphorus 2.5 2.0 - 4.0 MG/DL MAGNESIUM Collection Time: 11/25/17 3:40 AM Result Value Ref Range Magnesium 1.6 1.6 - 2.6 mg/dL CBC AND DIFF Collection Time: 11/25/17 3:40 AM Result Value Ref Range White Blood Cells 6.1 4.5 - 11.0 K/UL RBC 3.35 (L) 4.4 - 5.5 M/UL Hemoglobin 10.0 (L) 13.5 - 16.5 GM/DL Hematocrit 29.9 (L) 40 - 50 % MCV 89.2 80 - 100 FL MCH 29.8 26 - 34 PG MCHC 33.4 32.0 - 36.0 G/DL RDW 14.5 11 - 15 % Platelet Count 162 150 - 400 K/UL MPV 7.8 7 - 11 FL Neutrophils 62 41 - 77 % Lymphocytes 26 24 - 44 % Monocytes 9 4 - 12 % Eosinophils 3 0 - 5 % Basophils 0 0 - 2 % Absolute Neutrophil Count 3.70 1.8 - 7.0 K/UL Absolute Lymph Count 1.60 1.0 - 4.8 K/UL Absolute Monocyte Count 0.60 0 - 0.80 K/UL Absolute Eosinophil Count 0.20 0 - 0.45 K/UL Absolute Basophil Count 0.00 0 - 0.20 K/UL COMPREHENSIVE METABOLIC PANEL Collection Time: 11/25/17 3:40 AM Result Value Ref Range Sodium 140 137 - 147 MMOL/L Potassium 3.5 3.5 - 5.1 MMOL/L Chloride 109 98 - 110 MMOL/L Glucose 143 (H) 70 - 100 MG/DL Blood Urea Nitrogen 3 (L) 7 - 25 MG/DL Creatinine 0.69 0.4 - 1.24 MG/DL Calcium 8.6 8.5 - 10.6 MG/DL Total Protein 5.1 (L) 6.0 - 8.0 G/DL Total Bilirubin 0.4 0.3 - 1.2 MG/DL Albumin 2.7 (L) 3.5 - 5.0 G/DL Alk Phosphatase 91 25 - 110 U/L AST (SGOT) 123 (H) 7 - 40 U/L CO2 21 21 - 30 MMOL/L ALT (SGPT) 503 (H) 7 - 56 U/L Anion Gap 10 3 - 12 eGFR Non >60 >60 mL/min eGFR >60 >60 mL/min BNP (B-TYPE NATRIURETIC PEPTI) Collection Time: 11/25/17 3:40 AM Result Value Ref Range B Type Natriuretic Peptide 458.0 (H) 0 - 100 PG/ML POC GLUCOSE Collection Time: 11/25/17 7:50 AM Result Value Ref Range Glucose, POC 99 70 - 100 MG/DL Point of Care Testing (Last 24 hours) Glucose: (!) 143 (11/25/17 0340) POC Glucose (Download): 99 (11/25/17 0750) Radiology and other Diagnostics Review: Pertinent radiology reviewed. ELVIS Bah Pager Associated attestation - Seth Harris MD - 11/25/2017 5:45 PM CDT Formatting of this note may be different from the original. Patient admitted for DKA, acute pancreatitis and acute liver failure related to Tylenol overdose. Patient has finished NAC. The liver function has recovered. The low ceruloplasmin in the setting of acute liver failure is expected and I am not worried about Gustavo's disease. Acute Gustavo's disease is not expected to recover. No follow-up with hepatology necessary. As to the etiology of acute pancreatitis remains unclear. Patient should have an EUS with gastroenterology in 6 week. ATTESTATION I personally performed the healy portions of the E/M visit, discussed case with resident and concur with resident documentation of history, physical exam, assessment, and treatment plan unless otherwise noted. Staff name: Seth Harris MD Date: 11/25/2017 * Aurora Archer RN - 11/25/2017 5:31 AM CDT CO order expiring at 0600. RN text paged MPG pager to request renewal. Will continue to monitor. (tracking#[id number]) * Deloris Barrera MD - 11/24/2017 12:50 PM CDT Formatting of this note may be different from the original. General Progress Note Name: Krunal Bertrand Today's Date: 11/24/2017 Admission Date: 11/21/2017 LOS: 3 days Assessment/Plan: Active Problems: Type 1 diabetes mellitus with complication (HCC) Diabetic ketoacidosis associated with type 1 diabetes mellitus (HCC) Tylenol overdose Schizophrenia (HCC) Bipolar disorder (HCC) 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) Acute encephalopathy Shock (HCC) On mechanically assisted ventilation (HCC) Liver injury NORMA (acute kidney injury) (HCC) Streptococcal pneumonia (HCC) Acute pancreatitis Krunal Bertrand is a 47 y.o. male with a PMH of DM1 w/ hx DKA, fundoplication, bipolar/schizophrenia, depression w/ hx SI. He presented to [facility] on 11/20 for AMS & was found to be in DKA & had an ALI. He was found with an empty bottle of TYL, unclear amount ingested but possibly 85 grams, level at OSH was 295 & started on NAC. He was intubated d/t AMS & DKA was treated w/ IVF/insulin prior to tx to . ALI now appears to be improving w/ down trend in both LFTs & INR. Hepatology consulted & continues on NAC. DKA now resolved and continues on an insulin drip. Self extubated 11/21. Acute Liver Injury due to Acetaminophen Overdose - Unknown amount of tyl ingested; possibly #170 of 500mg tabs or 85 grams - At OSH: TYL level 295, AST 1361, ALT 761, Tbili 0.2, INR 1.6, Etoh/UDS/TCA - Neg & started on NAC - Abd US 11/21 - mild hepatomegaly, diffuse hepatic steatosis, patent hepatic vessels; small volume ascites - Ceruloplasmin is low, unremarkable hep panel, HSV, CMV, HIV, EBV, zoster, DANIKA , AMA, ASM-ab, alpha-1. 24 hr urine copper ordered - CT A/p 11/22: moderate stranding consistent w/ pancreatitis without organized fluid collection. Small effusions, small L renal hypodensity possible cyst. - Tylenol level neg. INR normalized - AST/ALT downtrending - S/p 3 doses Vit K - Can stop IV NAC today per Hepatology - Was started on Rifaximin - will need to discuss with Hepatology about plan for this - Hepatology consulted DM1 with DKA - At OSH: BG >1000, bicarb 2, A & AB.8/13/164/2 - A1c 11/21 - 10.1 - [employer] Lantus 30U QHS, Aspart 25U with meals - Insulin drip now stopped and back on Lantus 30U QHS. Holding mealtime until able to take PO - LDCF Acute Pancreatitis - Lipase elevated on admission at 935 -> 908 -> 269 - CT A/P with peripancreatic stranding without fluid collection - Continues to have some abd pain - CLD until pain improves - Continue PPI - IVF - was receiving 110 cc/hr via NAC; will change to LR now. Caution given low EF Strep Pneumo Pneumonia - WBC 24.0 on admit, now normalized. No fevers - CXR - no focal infiltrate - CT A/P showing patchy lower lung consolidations and small bilateral pleural effusions - Blood cx NGTD - Tracheal aspirate positive for strep pneumo, gann-sensitive - Stop Zosyn (started 11/22) and changed to Augmentin on 11/24 Acute Toxic-Metabolic Encephalopathy - Likely multifactorial from overdose, NORMA, ALI - CT head unremarkable - Intubated for airway protection; had normal blood gas; self-extubated 11/22, now on RA - Now resolved Schizoaffective Disorder, Bipolar Type with Intentional Overdose - Admitted for suicide attempt from Tylenol overdose - Holding [employer] fluoxitine & haldol - Zyprexa PRN - CO in place - Psych consulted Hypovolemic Shock - Resolved - Likely secondary to acute liver injury and hypovolemia 08/01 DKA - LA 2.9 to 1.1 - Required Levophed in ICU, now off since 11/21 Acute Systolic/Diastolic CHF, Troponin elevation - No previous echo for comparison - Echo 11/21 shows LVEF 35-40%, diffuse hypokenesis, grade 1 diastolic dysfunction, normal R side, normal valves - EKG - w/o ST changes - Trop - 0.21 - 0.33 - 1.58 -1.18 - Check BNP - Does not appear volume overloaded currently; although does have small bilateral pleural effusions on imaging (could be related to pneumonia and pancreatitis) - Not on beta gorge or CYNDI/ARB due to renal dysfunction and hypotension on admit; could likely start - Will need a repeat Echo at followup; this is likely related to shock - Cardiology consult NORMA - Cr up to 1.9 - Now normalized, likely from shock, hypovolemia, ALI, DKA Diarrhea - C diff neg - Likely from abx and bowel regimen - Stopped Miralax - Probiotic started; could use Imodium if needed Proph - SCDs, Lovenox FEN - CLD - IVF - LR @ 125 cc/hr Dispo - Full code - Continue inpatient hospitalization - PT/OT - Anticipating inpatient psych stay. Cannot leave AMA Subjective Krunal Bertrand is a 47 y.o. male. Patient reports feeling a little better today. Still having abdominal pain which is only slightly better. Seems to get worse after taking liquids. No emesis. Several loose BMs yesterday. ROS: Gen - No fever Resp - No dyspnea, cough CV - No chest pain Skin - No rash Medications Scheduled Meds: amoxicillin/K clavulanate (AUGMENTIN) tablet 875 mg 875 mg Oral BID w/meals ascorbic acid (VITAMIN C) tablet 500 mg 500 mg Oral QDAY enoxaparin (LOVENOX) syringe 40 mg 40 mg Subcutaneous QDAY(21) folic acid (FOLVITE) tablet 1 mg 1 mg Oral QDAY insulin aspart U-100 (NOVOLOG FLEXPEN) injection PEN 0-7 Units 0-7 Units Subcutaneous ACHS insulin glargine (LANTUS SOLOSTAR, BASAGLAR) injection PEN 30 Units 30 Units Subcutaneous QHS(22) lactobacillus rhamnosus GG (CULTURELLE) 15 billion cell capsule 1 capsule 1 capsule Oral BID w/meals pantoprazole (PROTONIX) injection 40 mg 40 mg Intravenous QDAY rifAXIMin (XIFAXAN) tablet 550 mg 550 mg Oral BID vitamins, B complex tablet 1 tablet 1 tablet Oral QDAY Continuous Infusions: acetylcysteine (ACETADOTE) 4 g in sodium chloride 0.45% (1/2NS) 1,000 mL IVPB 6.25 mg/kg/hr (11/24/17 1206) PRN and Respiratory Meds:OLANZapine Q6H PRN, ondansetron Q4H PRN, phenol PRN, polyethylene glycol 3350 QDAY PRN Objective Vital Signs: Last Filed Vital Signs: 24 Hour Range BP: 125/66 (11/24 1212) Temp: 37.6 C (99.7 F) (11/24 121) Pulse: 87 (11/24 1212) Respirations: 18 PER MINUTE (11/24 121) SpO2: 93 % (11/24 121) O2 Delivery: None (Room Air) (11/24 121) BP: (114-137)/(65-82) Temp: [37 C (98.6 F)-37.6 C (99.7 F)] Pulse: [80-104] Respirations: [18 PER MINUTE] SpO2: [92 %-98 %] O2 Delivery: None (Room Air) Intensity Pain Scale 0-10 (Pain 1): 6 (11/24/17 0000) Vitals: 11/20/17 2300 11/21/17 1037 Weight: 70.7 kg (155 lb 13.8 oz) 70.7 kg (155 lb 13.8 oz) Intake/Output Summary: (Last 24 hours) Intake/Output Summary (Last 24 hours) at 11/24/17 1315 Last data filed at 11/24/17 1251 Gross per 24 hour Intake 2878 ml Output 3425 ml Net -547 ml Stool Occurrence: 1 Physical Exam Gen - Alert, NAD, cooperative, calm Chest - CTAB CV - RRR, no m/r/g Abd - Soft, mild TTP in epigastrium, ND, +BS Ext - No c/c/e, warm, well-perfused Skin - No rash Lab Review Daily Labs Reviewed Point of Care Testing (Last 24 hours) Glucose: (!) 166 (11/24/17 0340) POC Glucose (Download): 91 (11/24/17 1052) Radiology and other Diagnostics Review: Pertinent radiology reviewed. Deloris Barrera MD Pager [phone] * Aurora Archer RN - 11/24/2017 5:39 AM CDT RN sent text page to [facility] pager requesting renewal of CO order for SI. Will continue to monitor. (tracking#[id number]) * Aurora Archer, ELICEO - 11/23/2017 10:22 PM CDT Patient c/o of throat pain and is requesting medication. RN text paged [facility] pager and requested throat spray or throat lozenges. (tracking#[id number]). Will continue to monitor. Patient c/o of abdominal pain 02/06. Patient requesting intervention. RN text [facility] pager requesting a heating pad. (tracking #[id number]) * Praveen Owens MD - 11/23/2017 1:54 PM CDT Formatting of this note may be different from the original. General Progress Note Name: Krunal Bertrand Today's Date: 11/23/2017 Admission Date: 11/21/2017 LOS: 2 days Assessment/Plan: Mr. Bertrand is a 47-year-old male with history of type 1 diabetes, major depression,? Bipolar/schizophrenia, history of suicidal ideation who was transferred from [facility] with DKA and acute liver injury/ failure secondary to excessive Tylenol intake. Hepatology was consulted for comanagement and further recommendations. 1) Acute liver injury/ failure: AST 822, AST 675, alk phos 103, INR 1.6 on outside hospital which is improved to 1.2. Tylenol level 296 on 11/20 and 36 on arrival to . Unclear what time patient ingested Tylenol but his mother found empty bottle of extra strength Tylenol near him. Intubated on arrival to [facility] but his encephalopathy is most likely multifactorial and DKA is playing a part as well. He has history of suicidal ideation, uncontrolled depression,? Bipolar and schizophrenia. He was started on NAC at outside hospital. Ammonia level 51. CT head with normal findings. Ultrasound abdomen revealed hepatomegaly and diffuse hepatic steatosis. Spleen size is 12 cm. 2) ?Acute interstitial pancreatitis: Symptoms of epigastric/ periumbilical abdominal pain (evenr after DKA resolved), nausea, lipase >900. Patient denied recent alcohol intake. 3) Suicide attempt, history of suicide attempts. 4) Type 1 DM, DKA (resolved) 5) HFreF: LVEF 35-40%. Normal PAP and right sided system. 6) ? Bipolar/schizophrenia. Recommendations: -CT abdomen consistent with acute pancreatitis without any fluid collection or necrosis. Recommend good hydration with LR 200 cc/hr for treating acute pancreatitis and reassess volume status periodically -LFTs downtrending nicely and continue to follow serially. Recommend continuing NAC for 1 more day -We will continue to follow pending 24 hour urine copper Patient seen and discussed with Dr. Saul Owens GI fellow Pager [phone] 11/23/2017 1:57 PM Subjective Krunal Bertrand is a 47 y.o. male No acute overnight events LFTs downtrending nicely, made 1.9 L of urine output CT scan showed evidence of pancreatitis Medications Scheduled Meds: ascorbic acid (VITAMIN C) tablet 500 mg 500 mg Oral QDAY enoxaparin (LOVENOX) syringe 40 mg 40 mg Subcutaneous QDAY(21) folic acid (FOLVITE) tablet 1 mg 1 mg Oral QDAY insulin aspart U-100 (NOVOLOG FLEXPEN) injection PEN 0-7 Units 0-7 Units Subcutaneous ACHS insulin glargine (LANTUS SOLOSTAR, BASAGLAR) injection PEN 30 Units 30 Units Subcutaneous QHS(22) pantoprazole (PROTONIX) injection 40 mg 40 mg Intravenous QDAY piperacillin/tazobactam (ZOSYN) 3.375 g/50 mL iso-osmotic IVPB 3.375 g Intravenous Q6H* polyethylene glycol 3350 (MIRALAX) packet 17 g 1 packet Oral BID rifAXIMin (XIFAXAN) tablet 550 mg 550 mg Oral BID vitamins, B complex tablet 1 tablet 1 tablet Oral QDAY Continuous Infusions: acetylcysteine (ACETADOTE) 4 g in sodium chloride 0.45% (1/2NS) 1,000 mL IVPB 6.25 mg/kg/hr (11/23/17 0845) PRN and Respiratory Meds:OLANZapine Q6H PRN, ondansetron Q4H PRN Objective: Vital Signs: Last Filed Vital Signs: 24 Hour Range BP: 122/73 (11/23 1235) Temp: 36.9 C (98.4 F) (11/23 1235) Pulse: 85 (11/23 1235) Respirations: 18 PER MINUTE (11/23 1235) SpO2: 98 % (11/23 1235) O2 Delivery: None (Room Air) (11/23 1235) SpO2 Pulse: 89 (11/23 1100) BP: (115-143)/(59-95) Temp: [36.6 C (97.8 F)-37.3 C (99.2 F)] Pulse: [85-116] Respirations: [16 PER MINUTE-30 PER MINUTE] SpO2: [89 %-98 %] O2 Delivery: None (Room Air) Intensity Pain Scale 0-10 (Pain 1): 5 (11/22/17 1600) Vitals: 11/20/17 2300 11/21/17 1037 Weight: 70.7 kg (155 lb 13.8 oz) 70.7 kg (155 lb 13.8 oz) Intake/Output Summary: (Last 24 hours) Intake/Output Summary (Last 24 hours) at 11/23/17 1354 Last data filed at 11/23/17 1235 Gross per 24 hour Intake 3571.8 ml Output 1275 ml Net 2296.8 ml Stool Occurrence: 1 Physical Exam General appearance: alert, cooperative and no distress Head: Normocephalic, atraumatic Eyes: No scleral icterus Oropharynx: No erythema, ulcers Neck: supple Lungs: clear to auscultation bilaterally Heart: regular rate and rhythm, S1, S2 normal, no murmur, click, rub or gallop Abdomen: Soft, tender in mid abdomen, non- distended, no masses palpable, no organomegaly, BS+ve Neurologic: No focal deficits Skin: no obvious rashes Musculoskeletal: No obvious joint inflammation Extremities: No pedal edema noted Lab Review 24-hour labs: Results for orders placed or performed during the hospital encounter of (from the past 24 hour(s)) POC GLUCOSE Collection Time: 11/22/17 3:11 PM Result Value Ref Range Glucose, POC 141 (H) 70 - 100 MG/DL COMPREHENSIVE METABOLIC PANEL Collection Time: 11/22/17 4:00 PM Result Value Ref Range Sodium 139 137 - 147 MMOL/L Potassium 3.6 3.5 - 5.1 MMOL/L Chloride 113 (H) 98 - 110 MMOL/L Glucose 147 (H) 70 - 100 MG/DL Blood Urea Nitrogen 4 (L) 7 - 25 MG/DL Creatinine 0.81 0.4 - 1.24 MG/DL Calcium 8.1 (L) 8.5 - 10.6 MG/DL Total Protein 4.8 (L) 6.0 - 8.0 G/DL Total Bilirubin 0.6 0.3 - 1.2 MG/DL Albumin 2.8 (L) 3.5 - 5.0 G/DL Alk Phosphatase 107 25 - 110 U/L AST (SGOT) 1,081 (H) 7 - 40 U/L CO2 19 (L) 21 - 30 MMOL/L ALT (SGPT) 1,133 (H) 7 - 56 U/L Anion Gap 7 3 - 12 eGFR Non >60 >60 mL/min eGFR >60 >60 mL/min PHOSPHORUS Collection Time: 11/22/17 4:00 PM Result Value Ref Range Phosphorus 1.6 (L) 2.0 - 4.0 MG/DL MAGNESIUM Collection Time: 11/22/17 4:00 PM Result Value Ref Range Magnesium 1.7 1.6 - 2.6 mg/dL POC GLUCOSE Collection Time: 11/22/17 5:07 PM Result Value Ref Range Glucose, POC 139 (H) 70 - 100 MG/DL POC GLUCOSE Collection Time: 11/22/17 6:50 PM Result Value Ref Range Glucose, POC 124 (H) 70 - 100 MG/DL TROPONIN-I Collection Time: 11/22/17 7:34 PM Result Value Ref Range Troponin-I 0.26 (H) 0.0 - 0.05 NG/ML POC GLUCOSE Collection Time: 11/22/17 9:12 PM Result Value Ref Range Glucose, POC 154 (H) 70 - 100 MG/DL BASIC METABOLIC PANEL Collection Time: 11/22/17 9:13 PM Result Value Ref Range Sodium 139 137 - 147 MMOL/L Potassium 3.8 3.5 - 5.1 MMOL/L Chloride 115 (H) 98 - 110 MMOL/L CO2 20 (L) 21 - 30 MMOL/L Anion Gap 4 3 - 12 Glucose 145 (H) 70 - 100 MG/DL Blood Urea Nitrogen 3 (L) 7 - 25 MG/DL Creatinine 0.81 0.4 - 1.24 MG/DL Calcium 8.1 (L) 8.5 - 10.6 MG/DL eGFR Non >60 >60 mL/min eGFR >60 >60 mL/min PHOSPHORUS Collection Time: 11/22/17 9:13 PM Result Value Ref Range Phosphorus 2.4 2.0 - 4.0 MG/DL POC GLUCOSE Collection Time: 11/22/17 10:06 PM Result Value Ref Range Glucose, POC 126 (H) 70 - 100 MG/DL POC GLUCOSE Collection Time: 11/22/17 11:00 PM Result Value Ref Range Glucose, POC 121 (H) 70 - 100 MG/DL POC GLUCOSE Collection Time: 11/22/17 11:58 PM Result Value Ref Range Glucose, POC 113 (H) 70 - 100 MG/DL POC GLUCOSE Collection Time: 11/23/17 1:08 AM Result Value Ref Range Glucose, POC 97 70 - 100 MG/DL POC GLUCOSE Collection Time: 11/23/17 1:51 AM Result Value Ref Range Glucose, POC 96 70 - 100 MG/DL POC GLUCOSE Collection Time: 11/23/17 3:10 AM Result Value Ref Range Glucose, POC 89 70 - 100 MG/DL CBC AND DIFF Collection Time: 11/23/17 3:11 AM Result Value Ref Range White Blood Cells 11.2 (H) 4.5 - 11.0 K/UL RBC 3.55 (L) 4.4 - 5.5 M/UL Hemoglobin 10.8 (L) 13.5 - 16.5 GM/DL Hematocrit 31.2 (L) 40 - 50 % MCV 88.1 80 - 100 FL MCH 30.4 26 - 34 PG MCHC 34.5 32.0 - 36.0 G/DL RDW 14.3 11 - 15 % Platelet Count 131 (L) 150 - 400 K/UL MPV 8.6 7 - 11 FL Neutrophils 80 (H) 41 - 77 % Lymphocytes 15 (L) 24 - 44 % Monocytes 3 (L) 4 - 12 % Eosinophils 2 0 - 5 % Basophils 0 0 - 2 % Absolute Neutrophil Count 9.00 (H) 1.8 - 7.0 K/UL Absolute Lymph Count 1.70 1.0 - 4.8 K/UL Absolute Monocyte Count 0.30 0 - 0.80 K/UL Absolute Eosinophil Count 0.20 0 - 0.45 K/UL Absolute Basophil Count 0.00 0 - 0.20 K/UL PROTIME INR (PT) Collection Time: 11/23/17 3:11 AM Result Value Ref Range INR 1.2 0.8 - 1.2 COMPREHENSIVE METABOLIC PANEL Collection Time: 11/23/17 3:11 AM Result Value Ref Range Sodium 141 137 - 147 MMOL/L Potassium 3.3 (L) 3.5 - 5.1 MMOL/L Chloride 114 (H) 98 - 110 MMOL/L Glucose 93 70 - 100 MG/DL Blood Urea Nitrogen 2 (L) 7 - 25 MG/DL Creatinine 0.71 0.4 - 1.24 MG/DL Calcium 8.3 (L) 8.5 - 10.6 MG/DL Total Protein 5.1 (L) 6.0 - 8.0 G/DL Total Bilirubin 0.7 0.3 - 1.2 MG/DL Albumin 2.9 (L) 3.5 - 5.0 G/DL Alk Phosphatase 104 25 - 110 U/L AST (SGOT) 708 (H) 7 - 40 U/L CO2 21 21 - 30 MMOL/L ALT (SGPT) 1,050 (H) 7 - 56 U/L Anion Gap 6 3 - 12 eGFR Non >60 >60 mL/min eGFR >60 >60 mL/min PHOSPHORUS Collection Time: 11/23/17 3:11 AM Result Value Ref Range Phosphorus 2.0 2.0 - 4.0 MG/DL ACETAMINOPHEN LEVEL Collection Time: 11/23/17 3:11 AM Result Value Ref Range Acetaminophen <10.0 <20.1 MCG/ML MAGNESIUM Collection Time: 11/23/17 3:11 AM Result Value Ref Range Magnesium 1.7 1.6 - 2.6 mg/dL FACTOR 5 ASSAY Collection Time: 11/23/17 3:11 AM Result Value Ref Range Factor 5 164 (H) 50 - 150 % AMMONIA Collection Time: 11/23/17 3:11 AM Result Value Ref Range Ammonia 32 9 - 35 MCMOL/L LIPASE Collection Time: 11/23/17 3:11 AM Result Value Ref Range Lipase 269 (H) 11 - 82 U/L POC GLUCOSE Collection Time: 11/23/17 4:09 AM Result Value Ref Range Glucose, POC 92 70 - 100 MG/DL POC GLUCOSE Collection Time: 11/23/17 6:09 AM Result Value Ref Range Glucose, POC 126 (H) 70 - 100 MG/DL POC GLUCOSE Collection Time: 11/23/17 11:01 AM Result Value Ref Range Glucose, POC 179 (H) 70 - 100 MG/DL BASIC METABOLIC PANEL Collection Time: 11/23/17 11:02 AM Result Value Ref Range Sodium 138 137 - [...] 10.6 MG/DL eGFR Non >60 >60 mL/min eGFR >60 >60 mL/min PHOSPHORUS Collection Time: 11/23/17 11:02 AM Result Value Ref Range Phosphorus 1.8 (L) 2.0 - 4.0 MG/DL Point of Care Testing (Last 24 hours) Glucose: (!) 194 (11/23/17 1102) POC Glucose (Download): (!) 179 (11/23/17 1101) Radiology and other Diagnostics Review: Pertinent radiology reviewed. Praveen Owens MD Pager Associated attestation - Ciera Hughes MD - 11/23/2017 2:11 PM CDT ATTESTATION I personally performed the healy portions of the E/M visit, discussed case with the Fellow and concur with documentation of history, physical exam, assessment, and treatment plan unless otherwise noted. * Ta Gr MD - 11/23/2017 11:49 AM CDT Formatting of this note may be different from the original. PSYCHIATRY CONSULTATION PROGRESS NOTE Room/Bed: GF9437/01 Admission Date: 11/21/2017 LOS: 2 days Consult type: Opinion Reason for Consult: Suicidal Ideations Assessment: 1. Suicide attempt 2. Intentional Overdose, Tylenol 3. Schizoaffective Disorder, Bipolar Type Other: 1. Acute Liver Injury 2/2 Tylenol OD 2. Type 1 DM Recommendations: Continue to hold all [employer] psychiatric medications in the setting of acute liver injury If patient has severe agitation with imminent harm to self or others would recommend 2.5mg PO/IM Zyprexa Q6H (has not required) Continue CO, patient with continuing intermittent suicidal ideation Would NOT allow patient to leave against medical advice, if he attempts to elope would try redirection or call BRT. Attempted to call mother, Lanie Bertrand, for collateral information, no answer and voice mail has not been set up on phone. Discussed with: Dr. Noriega Please feel free to contact us with any additional questions or concerns by paging the consult team between 8am and 5pm on weekdays and between 8am and 3pm on weekends at [phone]. 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 Subjective: Patient seen today in his room. He has been transferred to the floor. Denies current SI or HI. Denies AVH. Agreeable to psych admission once medically stable. Hospital Medications: Scheduled Meds: ascorbic acid (VITAMIN C) tablet 500 mg 500 mg Oral QDAY enoxaparin (LOVENOX) syringe 40 mg 40 mg Subcutaneous QDAY(21) folic acid (FOLVITE) tablet 1 mg 1 mg Oral QDAY insulin aspart U-100 (NOVOLOG FLEXPEN) injection PEN 0-7 Units 0-7 Units Subcutaneous ACHS insulin glargine (LANTUS SOLOSTAR, BASAGLAR) injection PEN 30 Units 30 Units Subcutaneous QHS(22) pantoprazole (PROTONIX) injection 40 mg 40 mg Intravenous QDAY piperacillin/tazobactam (ZOSYN) 3.375 g/50 mL iso-osmotic IVPB 3.375 g Intravenous Q6H* polyethylene glycol 3350 (MIRALAX) packet 17 g 1 packet Oral BID rifAXIMin (XIFAXAN) tablet 550 mg 550 mg Oral BID vitamins, B complex tablet 1 tablet 1 tablet Oral QDAY Continuous Infusions: acetylcysteine (ACETADOTE) 4 g in sodium chloride 0.45% (1/2NS) 1,000 mL IVPB 6.25 mg/kg/hr (11/23/17 0845) PRN and Respiratory Meds:OLANZapine Q6H PRN, ondansetron Q4H PRN, pancrelipase 20,000 Units/ sodium bicarbonate 650 mg(#) PRN ([employer] from [facility]) : Allergies: Keflex [cephalexin] and Erythromycin Review of Systems: A 14 point review of systems was negative except for: Constitutional: positive for fatigue Vital Signs: Last Filed in 24 hours Vital Signs: 24 hour Range BP: 137/79 (11/23 1100) Temp: 36.6 C (97.8 F) (11/23 0800) Pulse: 89 (11/23 1100) Respirations: 22 PER MINUTE (11/23 1100) SpO2: 96 % (11/23 1100) O2 Delivery: None (Room Air) (11/23 1100) SpO2 Pulse: 89 (11/23 1100) BP: (108-143)/(58-95) Temp: [36.6 C (97.8 F)-37.2 C (99 F)] Pulse: [85-116] Respirations: [16 PER MINUTE-30 PER MINUTE] SpO2: [89 %-98 %] O2 Delivery: None (Room Air) Mental Status Evaluation: General/Constitutional: WM, ill appearing, poor dentition, somnolent, cooperative with interview Eye Contact: Poor Behavior: Laying bed, calm Speech: Soft volume, normal tone, fair articulation Mood: "I'm doing a little better" Affect: Blunted Thought Process: Linear and goal directed Thought Content: Reports intermittent SI. None current Perception: Reports auditory hallucinations, paranoid delusions Associations: No loose associations Insight/Judgment: Fair/Good Orientation: x4 Recent and remote memory: fair Attention span and concentration: fair Cognition: fair Language: [employer] of knowledge and vocabulary: appropriate Focused Physical Exam: Neuro: somnolent Musculoskeletal: moves upper extremities spontaneously Lab/Radiology/Other Diagnostic Tests: 24-hour labs: Results for orders placed or performed during the hospital encounter of (from the past 24 hour(s)) POC GLUCOSE Collection Time: 11/22/17 12:54 PM Result Value Ref Range Glucose, POC 147 (H) 70 - 100 MG/DL TROPONIN-I Collection Time: 11/22/17 1:00 PM Result Value Ref Range Troponin-I 0.39 (H) 0.0 - 0.05 NG/ML ACETAMINOPHEN LEVEL Collection Time: 11/22/17 1:00 PM Result Value Ref Range Acetaminophen <10.0 <20.1 MCG/ML POC GLUCOSE Collection Time: 11/22/17 3:11 PM Result Value Ref Range Glucose, POC 141 (H) 70 - 100 MG/DL COMPREHENSIVE METABOLIC PANEL Collection Time: 11/22/17 4:00 PM Result Value Ref Range Sodium 139 137 - 147 MMOL/L Potassium 3.6 3.5 - 5.1 MMOL/L Chloride 113 (H) 98 - 110 MMOL/L Glucose 147 (H) 70 - 100 MG/DL Blood Urea Nitrogen 4 (L) 7 - 25 MG/DL Creatinine 0.81 0.4 - 1.24 MG/DL Calcium 8.1 (L) 8.5 - 10.6 MG/DL Total Protein 4.8 (L) 6.0 - 8.0 G/DL Total Bilirubin 0.6 0.3 - 1.2 MG/DL Albumin 2.8 (L) 3.5 - 5.0 G/DL Alk Phosphatase 107 25 - 110 U/L AST (SGOT) 1,081 (H) 7 - 40 U/L CO2 19 (L) 21 - 30 MMOL/L ALT (SGPT) 1,133 (H) 7 - 56 U/L Anion Gap 7 3 - 12 eGFR Non >60 >60 mL/min eGFR >60 >60 mL/min PHOSPHORUS Collection Time: 11/22/17 4:00 PM Result Value Ref Range Phosphorus 1.6 (L) 2.0 - 4.0 MG/DL MAGNESIUM Collection Time: 11/22/17 4:00 PM Result Value Ref Range Magnesium 1.7 1.6 - 2.6 mg/dL POC GLUCOSE Collection Time: 11/22/17 5:07 PM Result Value Ref Range Glucose, POC 139 (H) 70 - 100 MG/DL POC GLUCOSE Collection Time: 11/22/17 6:50 PM Result Value Ref Range Glucose, POC 124 (H) 70 - 100 MG/DL TROPONIN-I Collection Time: 11/22/17 7:34 PM Result Value Ref Range Troponin-I 0.26 (H) 0.0 - 0.05 NG/ML POC GLUCOSE Collection Time: 11/22/17 9:12 PM Result Value Ref Range Glucose, POC 154 (H) 70 - 100 MG/DL BASIC METABOLIC PANEL Collection Time: 11/22/17 9:13 PM Result Value Ref Range Sodium 139 137 - 147 MMOL/L Potassium 3.8 3.5 - 5.1 MMOL/L Chloride 115 (H) 98 - 110 MMOL/L CO2 20 (L) 21 - 30 MMOL/L Anion Gap 4 3 - 12 Glucose 145 (H) 70 - 100 MG/DL Blood Urea Nitrogen 3 (L) 7 - 25 MG/DL Creatinine 0.81 0.4 - 1.24 MG/DL Calcium 8.1 (L) 8.5 - 10.6 MG/DL eGFR Non >60 >60 mL/min eGFR >60 >60 mL/min PHOSPHORUS Collection Time: 11/22/17 9:13 PM Result Value Ref Range Phosphorus 2.4 2.0 - 4.0 MG/DL POC GLUCOSE Collection Time: 11/22/17 10:06 PM Result Value Ref Range Glucose, POC 126 (H) 70 - 100 MG/DL POC GLUCOSE Collection Time: 11/22/17 11:00 PM Result Value Ref Range Glucose, POC 121 (H) 70 - 100 MG/DL POC GLUCOSE Collection Time: 11/22/17 11:58 PM Result Value Ref Range Glucose, POC 113 (H) 70 - 100 MG/DL POC GLUCOSE Collection Time: 11/23/17 1:08 AM Result Value Ref Range Glucose, POC 97 70 - 100 MG/DL POC GLUCOSE Collection Time: 11/23/17 1:51 AM Result Value Ref Range Glucose, POC 96 70 - 100 MG/DL POC GLUCOSE Collection Time: 11/23/17 3:10 AM Result Value Ref Range Glucose, POC 89 70 - 100 MG/DL CBC AND DIFF Collection Time: 11/23/17 3:11 AM Result Value Ref Range White Blood Cells 11.2 (H) 4.5 - 11.0 K/UL RBC 3.55 (L) 4.4 - 5.5 M/UL Hemoglobin 10.8 (L) 13.5 - 16.5 GM/DL Hematocrit 31.2 (L) 40 - 50 % MCV 88.1 80 - 100 FL MCH 30.4 26 - 34 PG MCHC 34.5 32.0 - 36.0 G/DL RDW 14.3 11 - 15 % Platelet Count 131 (L) 150 - 400 K/UL MPV 8.6 7 - 11 FL Neutrophils 80 (H) 41 - 77 % Lymphocytes 15 (L) 24 - 44 % Monocytes 3 (L) 4 - 12 % Eosinophils 2 0 - 5 % Basophils 0 0 - 2 % Absolute Neutrophil Count 9.00 (H) 1.8 - 7.0 K/UL Absolute Lymph Count 1.70 1.0 - 4.8 K/UL Absolute Monocyte Count 0.30 0 - 0.80 K/UL Absolute Eosinophil Count 0.20 0 - 0.45 K/UL Absolute Basophil Count 0.00 0 - 0.20 K/UL PROTIME INR (PT) Collection Time: 11/23/17 3:11 AM Result Value Ref Range INR 1.2 0.8 - 1.2 COMPREHENSIVE METABOLIC PANEL Collection Time: 11/23/17 3:11 AM Result Value Ref Range Sodium 141 137 - 147 MMOL/L Potassium 3.3 (L) 3.5 - 5.1 MMOL/L Chloride 114 (H) 98 - 110 MMOL/L Glucose 93 70 - 100 MG/DL Blood Urea Nitrogen 2 (L) 7 - 25 MG/DL Creatinine 0.71 0.4 - 1.24 MG/DL Calcium 8.3 (L) 8.5 - 10.6 MG/DL Total Protein 5.1 (L) 6.0 - 8.0 G/DL Total Bilirubin 0.7 0.3 - 1.2 MG/DL Albumin 2.9 (L) 3.5 - 5.0 G/DL Alk Phosphatase 104 25 - 110 U/L AST (SGOT) 708 (H) 7 - 40 U/L CO2 21 21 - 30 MMOL/L ALT (SGPT) 1,050 (H) 7 - 56 U/L Anion Gap 6 3 - 12 eGFR Non >60 >60 mL/min eGFR >60 >60 mL/min PHOSPHORUS Collection Time: 11/23/17 3:11 AM Result Value Ref Range Phosphorus 2.0 2.0 - 4.0 MG/DL ACETAMINOPHEN LEVEL Collection Time: 11/23/17 3:11 AM Result Value Ref Range Acetaminophen <10.0 <20.1 MCG/ML MAGNESIUM Collection Time: 11/23/17 3:11 AM Result Value Ref Range Magnesium 1.7 1.6 - 2.6 mg/dL FACTOR 5 ASSAY Collection Time: 11/23/17 3:11 AM Result Value Ref Range Factor 5 164 (H) 50 - 150 % AMMONIA Collection Time: 11/23/17 3:11 AM Result Value Ref Range Ammonia 32 9 - 35 MCMOL/L LIPASE Collection Time: 11/23/17 3:11 AM Result Value Ref Range Lipase 269 (H) 11 - 82 U/L POC GLUCOSE Collection Time: 11/23/17 4:09 AM Result Value Ref Range Glucose, POC 92 70 - 100 MG/DL POC GLUCOSE Collection Time: 11/23/17 6:09 AM Result Value Ref Range Glucose, POC 126 (H) 70 - 100 MG/DL POC GLUCOSE Collection Time: 11/23/17 11:01 AM Result Value Ref Range Glucose, POC 179 (H) 70 - 100 MG/DL BASIC METABOLIC PANEL Collection Time: 11/23/17 11:02 AM Result Value Ref Range Sodium 138 137 - [...] 10.6 MG/DL eGFR Non >60 >60 mL/min eGFR >60 >60 mL/min PHOSPHORUS Collection Time: 11/23/17 11:02 AM Result Value Ref Range Phosphorus 1.8 (L) 2.0 - 4.0 MG/DL Ta Gr MD Associated attestation - Kyra Noriega MD - 11/24/2017 3:47 PM CDT Formatting of this note may be different from the original. ATTESTATION I personally observed the resident performing the E/M, discussed case with resident, and concur with resident documentation of history, physical assessment and treatment plan unless otherwise noted. Staff name: Kyra Noriega MD Date: 11/24/2017 * Chantelle Vargas, PT - 11/23/2017 11:35 AM CDT PHYSICAL THERAPY ASSESSMENT MOBILITY: Mobility Progressive Mobility Level: Walk in hallway Distance Walked (feet): 230 ft Level of Assistance: Assist X1 Assistive Device: None Time Tolerated: 11-30 minutes Activity Limited By: Fatigue;Nausea SUBJECTIVE: Subjective Significant hospital events: PMH: DM1, depression with h/i SI, bipolar/ schizophrenia. Admitted from OSH for DKA, acture liver injury and tylenol toxicity. Mental / Cognitive Status: Alert;Oriented;Cooperative Persons Present: Constant Observer Pain: Patient complains of pain;Patient does not rate pain Pain Location: Abdomen Pain Interventions: Patient agrees to participate in therapy;Treatment altered to patient's pain tolerance Comments: Patient on RA. Ambulation Assist: Independent Mobility in Community without Device Patient Owned Equipment: None Home Situation: Lives with Family Type of Home: House Entry Stairs: 1-2 Stairs In-Home Stairs: No Stairs ROM: ROM LE ROM: Bilateral;WFL STRENGTH: Strength Overall Strength: WFL BED MOBILITY/TRANSFERS: Bed Mobility/Transfers Bed Mobility: Supine to Sit: Independent Transfer Type: Sit to/from Stand Transfer: Assistance Level: To/From;Bed;Standby Assist Transfer: Assistive Device: None Transfers: Type Of Assistance: Verbal Cues;For Safety Considerations Other Transfer Type: Stand to Sit Other Transfer: Assistance Level: To;Commode;Standby Assist Other Transfer: Assistive Device: None Other Transfer: Type Of Assistance: For Safety Considerations End Of Activity Status: On Commode/Toilet;Nursing Notified;Instructed Patient to Request Assist with Mobility;Instructed Patient to Use Call Light (CO in room ) GAIT: Gait Gait Distance: 230 feet Gait: Assistance Level: Minimal Assist (contact guard assist) Gait: Assistive Device: None Gait: Descriptors: Pathway deviations;Pace: Slow;Normal step length Comments: Although patient with pathway deviations, patient does not require increased assist for ambulation. Activity Limited By: Nausea;Complaint of Fatigue EDUCATION: Education Persons Educated: Patient Patient Barriers To Learning: None Noted Teaching Methods: Verbal Instruction Patient Response: Verbalized Understanding Topics: Plan/Goals of PT Interventions;Mobility Progression;Ambulate With Nursing ASSESSMENT/PROGRESS: Assessment/Progress Impaired Mobility Due To: Deconditioning Assessment/Progress: Should Improve w/ Continued PT;Expect Good Progress Comments: As mobility increases, patient mobility be more stable. AM-PAC 6 Clicks Basic Mobility Inpatient Turning from your back to your side while in a flat bed without using bed rails : None Moving from lying on your back to sitting on the side of a flatbed without using bedrails : None Moving to and from a bed to a chair (including a wheelchair): A Little Standing up from a chair using your arms (e.g. wheelchair, or bedside chair): A Little To walk in hospital room: A Little Climbing 3-5 steps with a railing: A Little Raw Score: 20 Standardized (T-scale) Score: 43.99 Basic Mobility CMS 0-100%: 33.32 CMS G Code Modifier for Basic Mobility: CJ GOALS: Goals Goal Formulation: With Patient Pt Will Ambulate: Greater than 200 Feet, w/ No Device, w/ Stand By Assist Pt Will Go Up / Down Stairs: 1-2 Stairs, w/ Stand By Assist PLAN: Plan Treatment Interventions: Mobility Training Plan Frequency: 1-2 Days per Week RECOMMENDATIONS: PT Discharge Recommendations PT Discharge Recommendations: Home with Assistance Equipment Recommendations: None PT PLAN FOR NEXT VISIT: PT Plan for Next Visit: follow up one more visit for ambulation, stair trial then likely d/c. Therapist: Chantelle Vargas, PT, DPT Date: 11/23/2017 * Natasha See, ELICEO - 11/23/2017 8:00 AM CDT 0800 Report received, bedside safety check and assessment complete. Monitor and alarms verified. VSS per pt flow sheet. Pt is AOx3, moving all extremities and following commands. Bed is locked in lowest position, call light within reach. Please see flow sheet for complete assessment. CO at bedside. * Mercedes Flores DO - 11/23/2017 5:54 AM CDT Formatting of this note may be different from the original. 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 male with a PMH of: DM1 w/ hx DKA, bipolar/ schizophrenia, depression w/ hx SI. He presented to [facility] on for AMS & was found to be in DKA & had an ALI. He was found with an empty bottle of TYL, unclear amount ingested but possibly 85 grams, level at OSH was 295 & started on NAC. He was intubated d/t AMS & DKA was treated w/ IVF/insulin prior to tx to . ALI now appears to be improving w/ down trend in both LFTs & INR. Hepatology consulted & continues on NAC. DKA now resolved and continues on an insulin drip. Self extubated 11/21. NEURO: hx Schizophrenia/Bipolar, Depression OD - hx SI - unknown intent of tyl OD - hold [employer] fluoxitine & haldol - psych consulted, zyprexa PRN but has not required any Acute Encephalopathy- resolved - in the setting of OD, NORMA & ALI - CT h 11/21 - no acute event - continue rifaximin CV: Shock- resolved - likely secondary to acute liver injury and hypovolemia 08/01 DKA - LA 2.9- 1.1 - off pressors 11/21 Acute Systolic/Diastolic HF - no previous echo for comparison, echo 11/21 shows LVEF 35-40%, diffuse hypokenesis grade 1 diastolic dysfunction, normal R side, normal valves - EKG - w/o ST changes - trop - 0.21 - 0.33 - 1.58 -1.18 - will need repeat echo in the future - consider initiating ACEi/ARB PULM: Mechanical Ventilation- resolved - intubated at OSH for airway protection d/t AMS - self extubated this AM 11/22 - blood gas normal at 7.37/28/69/18, comfortable on room air GI: Tylenol OD Acute Liver Injury - unknown amount of tyl ingested; possibly #170 of 500mg tabs or 85 grams - at OSH: TYL level 295, AST 1361, ALT 761, Tbili 0.2, INR 1.6, Etoh/UDS/TCA - Neg & started on NAC - abd US 11/21 - mild hepatomegaly, diffuse hepatic steatosis, patent hepatic vessels; small volume ascites - tylenol level and ammoinia trending down, MELD 10 from 9 yesterday. AST/ALT trending up since yesterday. - Ceruloplasmin is low, unremarkable hep panel, HSV, CMV, HIV, EBV, zoster, DANIKA , AMA, ASM-ab, alpha-1 - CT 11/22: moderate stranding consistent w/ pancreatitis without organized fluid collection. Small effusions, small L renal hypodensity possible cyst. - hepatology recs: - continue NAC per heptatology recs - 24hr urine copper d/t low ceruloplasmin is pending - continue ppi and vit K x3 days ?Pancreatitis - lipase elevated on admission at 935-> 908 - >269 - abdomen is quiet, mild diffuse tenderness. No peritoneal signs. - CT with peripancreatic stranding without fluid collection - clear liquid diet for now, tolerating without issue - is receiving IVF via NAC. 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 Constipation - miralax and prn zofran ordered RENAL: NORMA resolved - in the setting of DKA/ALI - presumed normal baseline; at OSH Cr 1.9 at OSH & 1.1 on presentation to [facility] - Cr 1.11 -> 0.79-> 0.71 ENDO: DM1, DKA - at OSH: BG >1000, bicarb 2, A & AB.8/13/164/2 - hold [employer] aspart 25U TIDAC - a1c 11/21 - 10.1 - US abd 11/21 - visualized portions of the pancrease are normal; lipase elevated but trending down - continue insulin lantus 30U qhs, start LDCF while clear liquid diet, will address needs as diet increases ID: Leukocytosis - WBC 24.0 on admit, trending down to 11.2 today, afebrile - CXR - no focal infiltrate - BC 11/21 - NG 1 day, PCT 11/21 - 12, UA - bland - Gram stain, tracheal aspirate, + for many GPC resembling strep and few resembling staph - start zosyn 11/22, though may deescalate pending culture results Prophylaxis Review: Lines: Central Line, Arterial Line and Peripheral Line Tubes: None IVF: S/L Electrolytes: Reviewed and replaced as needed. Diet: Yes Insulin: Yes Urinary Catheter: Yes VTE ppx: heparin; SCDs GI ppx: protonix PT/OT: Yes Code status: Full Code Disposition: stable for transfer to telemetry status. Mercedes Flores, DO M3 team pager [phone] __ Subjective: Krunal Bertrand is a 47 y.o. male who is alert and oriented, resting in bed comfortably. He states he is having some mild abdominal cramping and a loose stool, but is able to tolerate water and juice well. He denied any active hallucinations/delusions to physician, but stated overnight to nursing that "people on the outside are trying to kill him" and he continues to have thoughts of hurting himself. He does not currently have a plan, but states he will "figure out a way." ROS: denies shortness of breath, chest pain, headache, difficulty swallowing. Objective: Medications: Scheduled Meds: ascorbic acid (VITAMIN C) tablet 500 mg 500 mg Oral QDAY folic acid (FOLVITE) tablet 1 mg 1 mg Oral QDAY heparin (porcine) PF syringe 5,000 Units 5,000 Units Subcutaneous Q8H insulin glargine (LANTUS SOLOSTAR, BASAGLAR) injection PEN 30 Units 30 Units Subcutaneous QHS(22) pantoprazole (PROTONIX) injection 40 mg 40 mg [...] (1/2NS) 1,000 mL IVPB 6.25 mg/kg/hr (11/22/17 2202) insulin regular (NOVOLIN R) 100 Units in sodium chloride 0.9% (NS) 100 mL IV drip (std conc) Stopped (11/23/17 0100) norepinephrine (LEVOPHED) 4 mg in dextrose 5% (D5W) 250 mL IV drip (std conc ) Stopped (11/22/17 0115) PRN and Respiratory Meds: Vital Signs: Last Filed Vital Signs: 24 Hour Range BP: 143/82 (11/23 0500) Temp: 37.1 C (98.7 F) (11/23 0000) Pulse: 89 (11/23 0500) Respirations: 22 PER MINUTE (11/23 0500) SpO2: 92 % (11/23 0500) O2 Delivery: None (Room Air) (11/23 0400) SpO2 Pulse: 89 (11/23 0500) BP: (100-143)/(58-94) ABP: (114-139)/(54-69) Temp: [36.8 C (98.2 F)-37.2 C (99 F)] Pulse: [85-118] Respirations: [16 PER MINUTE-30 PER MINUTE] SpO2: [89 %-99 %] O2 Delivery: None (Room Air) Intensity Pain Scale 0-10 (Pain 1): 5 (11/22/17 1600) Vitals: 11/20/17 2300 11/21/17 1037 Weight: 70.7 kg (155 lb 13.8 oz) 70.7 kg (155 lb 13.8 oz) Intake/Output Summary: (Last 24 hours) Intake/Output Summary (Last 24 hours) at 11/23/17 0554 Last data filed at 11/23/17 0300 Gross per 24 hour Intake 3960.91 ml Output 2080 ml Net 1880.91 ml Physical Exam: General: Alert and oriented x 3, resting in bed Head: Normocephalic, without obvious abnormality, atraumatic Eyes: Conjunctivae/corneas clear. PERRL Mouth/throat: Moist mucous membranes Neck: Supple, symmetrical, trachea midline Lungs: Clear to auscultation bilaterally; no wheeze Heart: Regular rate and rhythm, S1, S2 normal, no murmur appreciated Abdomen: Bowel sounds quiet. Mildly tender to palpation diffusely. No rebound Extremities: Extremities normal, atraumatic, no cyanosis or edema Pulses: 2+ and symmetric, all extremities Skin: No rashes or lesions noted Neurologic: No focal deficits Artificial airway: None Ventilator/ Respiratory Therapy: No: Laboratory: LABS: Recent Labs 11/21/17 0155 11/21/17 0645 11/21/17 1008 11/21/17 1618 11/21/17 2205 11/22/17 0305 11/22/17 1012 11/22/17159911/22/17 2113 11/23/17 0311 NA 143 143 142 141 140 140 139 139 139 141 K 2.8* 2.8* 4.9 3.5 3.6 3.3* 3.6 3.6 3.8 3.3* CL 119* 119* 121* 121* 118* 119* 115* 113* 115* 114* CO2 14* 15* 12* 14* 13* 15* 17* 19* 20* 21 GAP 10 9 9 6 9 6 7 7 4 6 BUN 17 14 12 11 9 7 5* 4* 3* 2* CR 1.11 0.85 0.79 0.78 0.83 0.76 0.81 0.81 0.81 0.71 GLU 203* 100 242* 134* 227* 172* 187* 147* 145* 93 CA 7.9* 7.5* 7.4* 7.7* 7.9* 7.9* 7.8* 8.1* 8.1* 8.3* ALBUMIN 2.8* 2.8* 2.8* 2.8* -- 2.6* -- 2.8* -- 2.9* MG 1.9 2.3 2.1 2.0 -- 1.8 -- 1.7 -- 1.7 PO4 <1.0* <1.0* 2.1 1.7* 3.4 2.2 2.1 1.6* 2.4 2.0 HGBA1C 10.1* -- -- -- -- -- -- -- -- -- TSH 1.070 -- -- -- -- -- -- -- -- -- Recent Labs 11/21/17 0155 11/21/17 0645 11/21/17 0800 11/21/17 1008 11/21/17 1321 11/21/17 1618 11/21/17 2205 11/22/17 0143 11/22/17 0305 11/22/17 1300 11/22/17 1600 11/22/17 1934 11/23/17 0311 WBC 24.0* -- -- -- -- -- -- -- 20.1* -- -- -- 11.2* HGB 12.6* -- -- -- -- -- -- -- 11.5* -- -- -- 10.8* HCT 36.8* -- -- -- -- -- -- -- 33.8* -- -- -- 31.2* PLTCT 184 -- -- -- -- -- -- -- 159 -- -- -- 131 * INR 1.2 -- -- -- -- -- -- -- 1.4* -- -- -- 1.2 PTT 22.6 -- -- -- -- -- -- -- -- -- -- -- - - AST 822* 682* -- 634* -- 633* -- -- 1,219* -- 1,081* -- 708* ALT 675* 690* -- 615* -- 660* -- -- 1,022* -- 1,133* -- 1,050* ALKPHOS 103 93 -- 101 -- 102 -- -- 103 -- 107 -- 104 TNI -- -- 0.21* -- 0.33* -- 1.58* 1.18* -- 0.39* -- 0.26 * -- Estimated Creatinine Clearance: 130 mL/min (based on SCr of 0.71 mg/dL). Vitals: 11/20/17 2300 11/21/17 1037 Weight: 70.7 kg (155 lb 13.8 oz) 70.7 kg (155 lb 13.8 oz) Recent Labs 11/21/17 2205 11/22/17 0305 PHART 7.35 7.37 PO2ART 85 69* Radiology and Other Diagnostic Procedures Review: Reviewed Associated attestation - Pedro Mendez MD - 11/23/2017 12:39 PM CDT Formatting of this note may be different from the original. ATTESTATION I personally performed the healy portions of the E/M visit, discussed case with resident and concur with resident documentation of history, physical exam, assessment, and treatment plan unless otherwise noted. LFT's improving, tylenol level remains non-detectable. Continue IV NAC. On zosyn with positive cultures while awaiting speciation. Continue liquid diet and prophylactic measures. Continue current insulin regimen. Staff name: Pedro Mendez MD Date: 11/23/2017 * Rosalinda Bains RN - 11/22/2017 2:41 PM CDT 0715: Report received from night RN. Bedside safety check complete. Lines and alarms verified. 0800: Pt assessed per ICU flowsheets. VSS per pt trends. Pt slightly More tachycardic and reports of abdominal pain. Heating pad applied. Patient also reports feeling nauseous, PRN zofran administered. Torres removed at this time. Patient oriented to person, place, and situation. He currently reports people on the outside are trying to kill him and he continues to have thoughts of hurting himself. He does not currently have a plan, but states he will "figure out a way." CO at bedside, patient assured his safety while in the hospital. 1415: Pt transported to CT with RN and CO. Pt tolerated transport. * Daniel York MBBS - 11/22/2017 10:22 AM CDT Formatting of this note may be different from the original. General Progress Note Name: Krunal Bertrand Today's Date: 11/22/2017 Admission Date: 11/21/2017 LOS: 1 day Assessment: Mr. Bertrand is a 47-year-old male with history of type 1 diabetes, major depression,? Bipolar/schizophrenia, history of suicidal ideation who was transferred from [facility] with DKA and acute liver injury/ failure secondary to excessive Tylenol intake. Hepatology was consulted for comanagement and further recommendations. 1) Acute liver injury/ failure: AST 822, AST 675, alk phos 103, INR 1.6 on outside hospital which is improved to 1.2. Tylenol level 296 on 11/20 and 36 on arrival to . Unclear what time patient ingested Tylenol but his mother found empty bottle of extra strength Tylenol near him. Intubated on arrival to [facility] but his encephalopathy is most likely multifactorial and DKA is playing a part as well. He has history of suicidal ideation, uncontrolled depression,? Bipolar and schizophrenia. He was started on NAC at outside hospital. Ammonia level 51. CT head with normal findings. Ultrasound abdomen revealed hepatomegaly and diffuse hepatic steatosis. Spleen size is 12 cm. 2) ?Acute interstitial pancreatitis: Symptoms of epigastric/ periumbilical abdominal pain (evenr after DKA resolved), nausea, lipase >900. Patient denied recent alcohol intake. 3) Suicide attempt, history of suicide attempts. 4) Type 1 DM, DKA (resolved) 5) HFreF: LVEF 35-40%. Normal PAP and right sided system. 6) ? Bipolar/schizophrenia. Recommendations: - Noted AST and ALT are worse today, there could be a component of ischemic injury to the liver, continue Vitamin K 10 mg x 3 days on total. - Initiate 24 hr urine copper collection, serum ceruloplasmin is low although can be expected in this situation. - Obtain CT abdomen with contrast to evaluate biliary track and pancreatic parenchyma/ look for complications of pancreatitis. - Intermittent IVF boluses for aggressive hydration with pancreatitis, start CLD when patient feels hungry. - Continue resuscitation with IVF/pressors to maintainSBP >90 mmHg or MAP > 65. - Continue NAC. - Agree with Psych consult. - Contnue IV pantoprazole 40 mg BID, monitor for signs of overt GI or other bleeding. Patient seen and discussed with Dr. Hughes. Daniel York MD Gastroenterology and Hepatology [phone] Subjective Krunal Bertrand is a 47 y.o. male. Patient seen and examined. He self extubated himself last night. He reported that he took tylenol because "there are people out to get me". He reported he has attempted suicide in the past as well but unsure which medications he used for the purpose. He reported hilary-umbilical abdominal pain and nausea. Medications Scheduled Meds: ascorbic acid (VITAMIN C) tablet 500 mg 500 mg Oral QDAY folic acid (FOLVITE) tablet 1 mg 1 mg Oral QDAY heparin (porcine) PF syringe 5,000 Units 5,000 Units Subcutaneous Q8H pantoprazole (PROTONIX) injection 40 mg 40 mg Intravenous BID phytonadione (VITAMIN K) injection 10 mg 10 mg Subcutaneous QDAY polyethylene glycol 3350 (MIRALAX) packet 17 g 1 packet Oral BID rifAXIMin (XIFAXAN) tablet 550 mg 550 mg Oral BID sodium phosphate 20 mmol in dextrose 5% (D5W) 250 mL IVPB 20 mmol Intravenous ONCE vitamins, B complex tablet 1 tablet 1 tablet Oral QDAY Continuous Infusions: acetylcysteine (ACETADOTE) 4 g in sodium chloride 0.45% (1/2NS) 1,000 mL IVPB 6.25 mg/kg/hr (11/22/17338) dexmedetomidine (PRECEDEX) 400 mcg in sodium chloride 0.9% (NS) 100 mL IV infusion Stopped (11/21/171916) fentaNYL (SUBLIMAZE) 1000 mcg/ NS 100 mL IV infusion (std conc)(premade) Stopped (11/21/171901) insulin regular (NOVOLIN R) 100 Units in sodium chloride 0.9% (NS) 100 mL IV drip (std conc) 2 Units/hr (11/22/17 08) norepinephrine (LEVOPHED) 4 mg in dextrose 5% (D5W) 250 mL IV drip (std conc ) Stopped (11/22/17 0115) PRN and Respiratory Meds:ondansetron Q4H PRN, pancrelipase 20,000 Units/ sodium bicarbonate 650 mg(#) PRN ([employer] from Rx) Review of Systems: All other systems reviewed and are negative. Objective: Vital Signs: Last Filed Vital Signs: 24 Hour Range BP: 91/55 (11/21 1037) Temp: 37.2 C (98.9 F) (11/22 0800) Pulse: 112 (11/22 899) Respirations: 25 PER MINUTE (11/22 899) SpO2: 98 % (11/22 899) O2 Delivery: Nasal Cannula (11/22 899) SpO2 Pulse: 110 (11/22 899) Height: 182.9 cm (72") (11/21 1037) BP: (91)/(55) ABP: (82-139)/(46-79) Temp: [36.6 C (97.9 F)-37.2 C (99 F)] Pulse: [78-118] Respirations: [9 PER MINUTE-25 PER MINUTE] SpO2: [94 %-100 %] O2 Delivery: Nasal Cannula Intensity Pain Scale 0-10 (Pain 1): 5 (11/22/17 0800) Vitals: 11/20/17 2300 11/21/17 1037 Weight: 70.7 kg (155 lb 13.8 oz) 70.7 kg (155 lb 13.8 oz) Intake/Output Summary: (Last 24 hours) Intake/Output Summary (Last 24 hours) at 11/22/17 1022 Last data filed at 11/22/17 1000 Gross per 24 hour Intake 3908.94 ml Output 971 ml Net 2937.94 ml Physical Exam General appearance alert, cooperative, no distress, appears stated age Head Normocephalic, without obvious abnormality, atraumatic Eyes conjunctivae/corneas clear. EOM's intact. pupils equally round, accommodation normal. Nose Nares normal. No drainage or sinus tenderness. Throat Lips, mucosa, and tongue normal. Teeth and gums normal Neck supple, symmetrical, trachea midline, and no JVD Back symmetric, no curvature. ROM normal. No CVA tenderness Lungs clear to auscultation bilaterally Chest wall no tenderness Heart regular rate and rhythm, S1, S2 normal, no murmur, click, rub or gallop Abdomen Epigastric tenderness on palpation. Extremities extremities normal, atraumatic, no cyanosis or edema Pulses 2+ and symmetric Skin Skin color, texture, turgor normal. No rashes or lesions Neurologic Normal Lab Review 24-hour labs: Results for orders placed or performed during the hospital encounter of (from the past 24 hour(s)) POC GLUCOSE Collection Time: 11/21/17 11:17 AM Result Value Ref Range Glucose, POC 171 (H) 70 - 100 MG/DL POC GLUCOSE Collection Time: 11/21/17 12:16 PM Result Value Ref Range Glucose, POC 143 (H) 70 - 100 MG/DL POC GLUCOSE Collection Time: 11/21/17 1:20 PM Result Value Ref Range Glucose, POC 149 (H) 70 - 100 MG/DL TROPONIN-I Collection Time: 11/21/17 1:21 PM Result Value Ref Range Troponin-I 0.33 (H) 0.0 - 0.05 NG/ML O2 SATURATION, CENTRAL VENOUS Collection Time: 11/21/17 1:21 PM Result Value Ref Range O2 Sat, Central Venous 77.4 % LACTIC ACID (BG - RAPID LACTATE) Collection Time: 11/21/17 1:21 PM Result Value Ref Range Lactic Acid,BG 1.1 0.5 - 2.0 MMOL/L POC GLUCOSE Collection Time: 11/21/17 2:16 PM Result Value Ref Range Glucose, POC 133 (H) 70 - 100 MG/DL POC GLUCOSE Collection Time: 11/21/17 3:10 PM Result Value Ref Range Glucose, POC 160 (H) 70 - 100 MG/DL COMPREHENSIVE METABOLIC PANEL Collection Time: 11/21/17 4:18 PM Result Value Ref Range Sodium 141 137 - 147 MMOL/L Potassium 3.5 3.5 - 5.1 MMOL/L Chloride 121 (H) 98 - 110 MMOL/L Glucose 134 (H) 70 - 100 MG/DL Blood Urea Nitrogen 11 7 - 25 MG/DL Creatinine 0.78 0.4 - 1.24 MG/DL Calcium 7.7 (L) 8.5 - 10.6 MG/DL Total Protein 4.6 (L) 6.0 - 8.0 G/DL Total Bilirubin 0.2 (L) 0.3 - 1.2 MG/DL Albumin 2.8 (L) 3.5 - 5.0 G/DL Alk Phosphatase 102 25 - 110 U/L AST (SGOT) 633 (H) 7 - 40 U/L CO2 14 (L) 21 - 30 MMOL/L ALT (SGPT) 660 (H) 7 - 56 U/L Anion Gap 6 3 - 12 eGFR Non >60 >60 mL/min eGFR >60 >60 mL/min PHOSPHORUS Collection Time: 11/21/17 4:18 PM Result Value Ref Range Phosphorus 1.7 (L) 2.0 - 4.0 MG/DL BLOOD GASES, ARTERIAL Collection Time: 11/21/17 4:18 PM Result Value Ref Range pH-Arterial 7.30 (L) 7.35 - 7.45 pCO2-Arterial 32 (L) 35 - 45 MMHG pO2-Arterial 124 (H) 80 - 100 MMHG Base Deficit-Arterial 9.9 MMOL/L O2 Sat-Arterial 98.5 95 - 99 % Rylazovawde-IMJ-Una 16.7 (L) 21 - 28 MMOL/L MAGNESIUM Collection Time: 11/21/17 4:18 PM Result Value Ref Range Magnesium 2.0 1.6 - 2.6 mg/dL POC GLUCOSE Collection Time: 11/21/17 4:19 PM Result Value Ref Range Glucose, POC 120 (H) 70 - 100 MG/DL POC GLUCOSE Collection Time: 11/21/17 5:11 PM Result Value Ref Range Glucose, POC 103 (H) 70 - 100 MG/DL POC GLUCOSE Collection Time: 11/21/17 6:09 PM Result Value Ref Range Glucose, POC 106 (H) 70 - 100 MG/DL POC GLUCOSE Collection Time: 11/21/17 7:00 PM Result Value Ref Range Glucose, POC 106 (H) 70 - 100 MG/DL POC GLUCOSE Collection Time: 11/21/17 8:07 PM Result Value Ref Range Glucose, POC 170 (H) 70 - 100 MG/DL POC GLUCOSE Collection Time: 11/21/17 10:03 PM Result Value Ref Range Glucose, POC 195 (H) 70 - 100 MG/DL TROPONIN-I Collection Time: 11/21/17 10:05 PM Result Value Ref Range Troponin-I 1.58 (H) 0.0 - 0.05 NG/ML BASIC METABOLIC PANEL Collection Time: 11/21/17 10:05 PM Result Value Ref Range Sodium 140 137 - 147 MMOL/L Potassium 3.6 3.5 - 5.1 MMOL/L Chloride 118 (H) 98 - 110 MMOL/L CO2 13 (L) 21 - 30 MMOL/L Anion Gap 9 3 - 12 Glucose 227 (H) 70 - 100 MG/DL Blood Urea Nitrogen 9 7 - 25 MG/DL Creatinine 0.83 0.4 - 1.24 MG/DL Calcium 7.9 (L) 8.5 - 10.6 MG/DL eGFR Non >60 >60 mL/min eGFR >60 >60 mL/min PHOSPHORUS Collection Time: 11/21/17 10:05 PM Result Value Ref Range Phosphorus 3.4 2.0 - 4.0 MG/DL BLOOD GASES, ARTERIAL Collection Time: 11/21/17 10:05 PM Result Value Ref Range pH-Arterial 7.35 7.35 - 7.45 pCO2-Arterial 26 (L) 35 - 45 MMHG pO2-Arterial 85 80 - 100 MMHG Base Deficit-Arterial 10.1 MMOL/L O2 Sat-Arterial 96.6 95 - 99 % Mqrwasptulp-TTA-Uew 16.5 (L) 21 - 28 MMOL/L POC GLUCOSE Collection Time: 11/21/17 11:13 PM Result Value Ref Range Glucose, POC 177 (H) 70 - 100 MG/DL POC GLUCOSE Collection Time: 11/22/17 12:24 AM Result Value Ref Range Glucose, POC 187 (H) 70 - 100 MG/DL POC GLUCOSE Collection Time: 11/22/17 1:12 AM Result Value Ref Range Glucose, POC 186 (H) 70 - 100 MG/DL TROPONIN-I Collection Time: 11/22/17 1:43 AM Result Value Ref Range Troponin-I 1.18 (H) 0.0 - 0.05 NG/ML POC GLUCOSE Collection Time: 11/22/17 2:23 AM Result Value Ref Range Glucose, POC 155 (H) 70 - 100 MG/DL POC GLUCOSE Collection Time: 11/22/17 3:04 AM Result Value Ref Range Glucose, POC 155 (H) 70 - 100 MG/DL CBC AND DIFF Collection Time: 11/22/17 3:05 AM Result Value Ref Range White Blood Cells 20.1 (H) 4.5 - 11.0 K/UL RBC 3.83 (L) 4.4 - 5.5 M/UL Hemoglobin 11.5 (L) 13.5 - 16.5 GM/DL Hematocrit 33.8 (L) 40 - 50 % MCV 88.1 80 - 100 FL MCH 30.1 26 - 34 PG MCHC 34.2 32.0 - 36.0 G/DL RDW 14.6 11 - 15 % Platelet Count 159 150 - 400 K/UL MPV 8.6 7 - 11 FL Neutrophils 91 (H) 41 - 77 % Lymphocytes 8 (L) 24 - 44 % Monocytes 1 (L) 4 - 12 % Eosinophils 0 0 - 5 % Basophils 0 0 - 2 % Absolute Neutrophil Count 18.10 (H) 1.8 - 7.0 K/UL Absolute Lymph Count 1.60 1.0 - 4.8 K/UL Absolute Monocyte Count 0.30 0 - 0.80 K/UL Absolute Eosinophil Count 0.10 0 - 0.45 K/UL Absolute Basophil Count 0.00 0 - 0.20 K/UL PROTIME INR (PT) Collection Time: 11/22/17 3:05 AM Result Value Ref Range INR 1.4 (H) 0.8 - 1.2 LIPASE Collection Time: 11/22/17 3:05 AM Result Value Ref Range Lipase 908 (H) 11 - 82 U/L COMPREHENSIVE METABOLIC PANEL Collection Time: 11/22/17 3:05 AM Result Value Ref Range Sodium 140 137 - 147 MMOL/L Potassium 3.3 (L) 3.5 - 5.1 MMOL/L Chloride 119 (H) 98 - 110 MMOL/L Glucose 172 (H) 70 - 100 MG/DL Blood Urea Nitrogen 7 7 - 25 MG/DL Creatinine 0.76 0.4 - 1.24 MG/DL Calcium 7.9 (L) 8.5 - 10.6 MG/DL Total Protein 4.4 (L) 6.0 - 8.0 G/DL Total Bilirubin 0.3 0.3 - 1.2 MG/DL Albumin 2.6 (L) 3.5 - 5.0 G/DL Alk Phosphatase 103 25 - 110 U/L AST (SGOT) 1,219 (H) 7 - 40 U/L CO2 15 (L) 21 - 30 MMOL/L ALT (SGPT) 1,022 (H) 7 - 56 U/L Anion Gap 6 3 - 12 eGFR Non >60 >60 mL/min eGFR >60 >60 mL/min PHOSPHORUS Collection Time: 11/22/17 3:05 AM Result Value Ref Range Phosphorus 2.2 2.0 - 4.0 MG/DL BLOOD GASES, ARTERIAL Collection Time: 11/22/17 3:05 AM Result Value Ref Range pH-Arterial 7.37 7.35 - 7.45 pCO2-Arterial 28 (L) 35 - 45 MMHG pO2-Arterial 69 (L) 80 - 100 MMHG Base Deficit-Arterial 7.9 MMOL/L O2 Sat-Arterial 94.3 (L) 95 - 99 % Bsbhdgxqich-JAN-Wlp 18.0 (L) 21 - 28 MMOL/L ACETAMINOPHEN LEVEL Collection Time: 11/22/17 3:05 AM Result Value Ref Range Acetaminophen <10.0 <20.1 MCG/ML MAGNESIUM Collection Time: 11/22/17 3:05 AM Result Value Ref Range Magnesium 1.8 1.6 - 2.6 mg/dL AMMONIA Collection Time: 11/22/17 3:05 AM Result Value Ref Range Ammonia 47 (H) 9 - 35 MCMOL/L POC GLUCOSE Collection Time: 11/22/17 5:07 AM Result Value Ref Range Glucose, POC 134 (H) 70 - 100 MG/DL POC GLUCOSE Collection Time: 11/22/17 6:11 AM Result Value Ref Range Glucose, POC 111 (H) 70 - 100 MG/DL POC GLUCOSE Collection Time: 11/22/17 6:58 AM Result Value Ref Range Glucose, POC 96 70 - 100 MG/DL POC GLUCOSE Collection Time: 11/22/17 7:16 AM Result Value Ref Range Glucose, POC 101 (H) 70 - 100 MG/DL POC GLUCOSE Collection Time: 11/22/17 8:19 AM Result Value Ref Range Glucose, POC 180 (H) 70 - 100 MG/DL POC GLUCOSE Collection Time: 11/22/17 8:59 AM Result Value Ref Range Glucose, POC 175 (H) 70 - 100 MG/DL POC GLUCOSE Collection Time: 11/22/17 10:12 AM Result Value Ref Range Glucose, POC 167 (H) 70 - 100 MG/DL Point of Care Testing (Last 24 hours) Glucose: (!) 172 (11/22/17 0305) POC Glucose (Download): (!) 167 (11/22/17 1012) Radiology and other Diagnostics Review: Pertinent radiology reviewed. ELVIS Bah Pager [phone] Associated attestation - Ciera Hughes MD - 11/22/2017 2:23 PM CDT ATTESTATION I personally performed the healy portions of the E/M visit, discussed case with the Fellow and concur with documentation of history, physical exam, assessment, and treatment plan unless otherwise noted. Self extuabted and able to converse this AM. Some interesting conversations. Admits that he ingested over prolonged period of time and because "people were coming to get (him)". His TAs are trending up as well as worse coagulopathy. His MS is intact. Still recovering from DKA. He has abdominal pain and lipase suggestive of AP. Echo with EF 35, possible stress-induced, no prior. - Vit K IV 10mg x 3 days. - Continue N-Ac. - Ceruloplasmin low not atypical in setting of LONG TERM; however, with psychotic features/hx, need to r/u WD. Please obtain 24hr urine copper. - Contrasted CT a/p. * Sandrine Espinoza MD - 11/22/2017 7:04 AM CDT Formatting of this note may be different from the original. Critical Care Progress Note Krunal Bertrand Today's Date: 11/22/2017 Admission Date: 11/21/2017 LOS: 1 day Active Problems: Type 1 diabetes mellitus with complication (HCC) Diabetic ketoacidosis associated with type 1 diabetes mellitus (HCC) Tylenol overdose Schizophrenia (HCC) Bipolar disorder (HCC) 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) Acute encephalopathy Shock (HCC) On mechanically assisted ventilation (HCC) Liver injury NORMA (acute kidney injury) (HCC) Assessment/Plan: Hospital Course: Krunal Bertrand is a 47 y.o. male with a PMH of: DM1 w/ hx DKA, bipolar/ schizophrenia, depression w/ hx SI. He presented to [facility] on for AMS & was found to be in DKA & had an ALI. He was found with an empty bottle of TYL, unclear amount ingested but possibly 85 grams, level at OSH was 295 & started on NAC. He was intubated d/t AMS & DKA was treated w/ IVF/insulin prior to tx to . ALI now appears to be improving w/ down trend in both LFTs & INR. Hepatology consulted & continues on NAC. DKA now resolved and continues on an insulin drip. Self extubated overnight. NEURO: hx Schizophrenia/Bipolar, Depression OD - hx SI - unknown intent of tyl OD - hold [employer] fluoxitine & haldol - psych consulted Acute Encephalopathy- resolved - in the setting of OD, NORMA & ALI - CT h 11/21 - no acute event - now off sedation as of last night after self extubating - continue rifaximin CV: Shock- resolved - likely secondary to acute liver injury and hypovolemia 2/2 DKA - LA 2.9- 1.1 - required levophed yesterday, now off Acute Systolic/Diastolic HF - no previous echo for comparison, echo 11/21 shows LVEF 35-40%, diffuse hypokenesis grade 1 diastolic dysfunction, normal R side, normal valves - EKG - w/o ST changes - trop - 0.21 - 0.33 - 1.58 -1.18 - continue to trend trops today - will need repeat echo in the future PULM: Mechanical Ventilation- resolved - intubated at OSH for airway protection d/t AMS - self extubated this AM 11/22 - blood gas normal at 7.37/28/69/18, comfortable on room air GI: Tylenol OD Acute Liver Injury - unknown amount of tyl ingested; possibly #170 of 500mg tabs or 85 grams - at OSH: TYL level 295, AST 1361, ALT 761, Tbili 0.2, INR 1.6, Etoh/UDS/TCA - Neg & started on NAC - abd US 11/21 - mild hepatomegaly, diffuse hepatic steatosis, patent hepatic vessels; small volume ascites - tylenol level and ammoinia trending down, MELD 10 from 9 yesterday. AST/ALT trending up since yesterday. - Ceruloplasmin is low, unremarkable hep panel, HSV, CMV, HIV, EBV, zoster, DANIKA , AMA, ASM-ab, alpha-1 - hepatology recs: - continue NAC - 24hr urine copper d/t low ceruloplasmin - CT abdomen w/ contrast - continue ppi and vit K x3 days ?Pancreatitis - lipase elevated on admission at 935, now 908 - abdomen is quiet, mild diffuse tenderness. No peritoneal signs. 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 Constipation - miralax and prn zofran ordered RENAL: NORMA (improved) - in the setting of DKA/ALI - presumed normal baseline; at OSH Cr 1.9 at OSH & 1.1 on presentation to [facility] - Cr 1.11 -> 0.79-> 0.76 ENDO: DM1, DKA - at OSH: BG >1000, bicarb 2, A & AB.8/13/164/2 - hold [employer] aspart 25U TIDAC - a1c 11/21 - 10.1 - US abd 11/21 - visualized portions of the pancrease are normal; lipase elevated but trending down - continue insulin gtt, will assess later today and start subq insulin tonight ID: Leukocytosis - WBC 24.0 on admit, trending down, afebrile - CXR - no focal infiltrate - BC 11/21 - NG 1 day, PCT 11/21 - in process, UA - bland - Gram stain, tracheal aspirate, + for many GPC resembling strep and few resembling staph - start zosyn 11/22, though may deescalate quickly Prophylaxis Review: Lines: Central Line, Arterial Line and Peripheral Line Tubes: None IVF: S/L Electrolytes: Reviewed and replaced as needed. Diet: Yes Insulin: Yes Urinary Catheter: Yes VTE ppx: heparin; SCDs GI ppx: protonix PT/OT: Yes Code status: Full Code Disposition: Remain in the MICU. Sandrine Espinoza MD M3 team pager [phone] __ Subjective: Krunal Bertrand is a 47 y.o. male who is alert and oriented, resting in bed. He appears somewhat anxious. He knows that he is in the hospital because he tried to commit suicide. He says he did this because "they are coming to get me." Says he is nauseous and has not had a bowel movement yet. ROS: denies shortness of breath, chest pain, headache, difficulty swallowing. Objective: Medications: Scheduled Meds: ascorbic acid (VITAMIN C) tablet 500 mg 500 mg Oral QDAY folic acid (FOLVITE) tablet 1 mg 1 mg Oral QDAY heparin (porcine) PF syringe 5,000 Units 5,000 Units Subcutaneous Q8H pantoprazole (PROTONIX) injection 40 mg 40 mg Intravenous BID phytonadione (VITAMIN K) injection 10 mg 10 mg Subcutaneous QDAY rifAXIMin (XIFAXAN) tablet 550 mg 550 mg Oral BID sodium phosphate 20 mmol in dextrose 5% (D5W) 250 mL IVPB 20 mmol Intravenous ONCE vitamins, B complex tablet 1 tablet 1 tablet Oral QDAY Continuous Infusions: acetylcysteine (ACETADOTE) 4 g in sodium chloride 0.45% (1/2NS) 1,000 mL IVPB 6.25 mg/kg/hr (11/22/17338) dexmedetomidine (PRECEDEX) 400 mcg in sodium chloride 0.9% (NS) 100 mL IV infusion Stopped (11/21/171916) fentaNYL (SUBLIMAZE) 1000 mcg/ NS 100 mL IV infusion (std conc)(premade) Stopped (11/21/17 1902) insulin regular (NOVOLIN R) 100 Units in sodium chloride 0.9% (NS) 100 mL IV drip (std conc) Stopped (11/22/17 0701) norepinephrine (LEVOPHED) 4 mg in dextrose 5% (D5W) 250 mL IV drip (std conc ) Stopped (11/22/17 0115) PRN and Respiratory Meds: Vital Signs: Last Filed Vital Signs: 24 Hour Range BP: 91/55 (11/21 1037) Temp: 37.2 C (98.9 F) (11/22 0400) Pulse: 96 (11/22 599) Respirations: 17 PER MINUTE (11/22 599) SpO2: 99 % (11/22 599) O2 Delivery: Nasal Cannula (11/22 599) SpO2 Pulse: 96 (11/22 599) Height: 182.9 cm (72") (11/21 1037) BP: (91)/(55) ABP: (82-124)/(46-79) Temp: [36.5 C (97.7 F)-37.2 C (99 F)] Pulse: [76-99] Respirations: [9 PER MINUTE-24 PER MINUTE] SpO2: [94 %-100 %] O2 Delivery: Nasal Cannula Vitals: 11/20/17 2300 11/21/17 1037 Weight: 70.7 kg (155 lb 13.8 oz) 70.7 kg (155 lb 13.8 oz) Intake/Output Summary: (Last 24 hours) Intake/Output Summary (Last 24 hours) at 11/22/17 0704 Last data filed at 11/22/17 0600 Gross per 24 hour Intake 2461.53 ml Output 981 ml Net 1480.53 ml Physical Exam: General: Alert and oriented x 3, resting in bed Head: Normocephalic, without obvious abnormality, atraumatic Eyes: Conjunctivae/corneas clear. PERRL Mouth/throat: Moist mucous membranes Neck: Supple, symmetrical, trachea midline Lungs: Clear to auscultation bilaterally; no wheeze Heart: Regular rate and rhythm, S1, S2 normal, no murmur appreciated Abdomen: Bowel sounds quiet. Mildly tender to palpation diffusely. No rebound Extremities: Extremities normal, atraumatic, no cyanosis or edema Pulses: 2+ and symmetric, all extremities Skin: No rashes or lesions noted Neurologic: sedated Artificial airway: None Ventilator/ Respiratory Therapy: No: Laboratory: LABS: Recent Labs 11/21/17 0155 11/21/17 0645 11/21/17 1008 11/21/17 1618 11/21/17 2205 11/22/17 0305 NA 143 143 142 141 140 140 K 2.8* 2.8* 4.9 3.5 3.6 3.3* CL 119* 119* 121* 121* 118* 119* CO2 14* 15* 12* 14* 13* 15* GAP 10 9 9 6 9 6 BUN 17 14 12 11 9 7 CR 1.11 0.85 0.79 0.78 0.83 0.76 GLU 203* 100 242* 134* 227* 172* CA 7.9* 7.5* 7.4* 7.7* 7.9* 7.9* ALBUMIN 2.8* 2.8* 2.8* 2.8* -- 2.6* MG 1.9 2.3 2.1 2.0 -- 1.8 PO4 <1.0* <1.0* 2.1 1.7* 3.4 2.2 HGBA1C 10.1* -- -- -- -- -- TSH 1.070 -- -- -- -- -- Recent Labs 11/21/17 0155 11/21/17 0645 11/21/17 0800 11/21/17 1008 11/21/17 1321 11/21/17 1618 11/21/17 2205 11/22/17 0143 11/22/17 0305 WBC 24.0* -- -- -- -- -- -- -- 20.1* HGB 12.6* -- -- -- -- -- -- -- 11.5* HCT 36.8* -- -- -- -- -- -- -- 33.8* PLTCT 184 -- -- -- -- -- -- -- 159 INR 1.2 -- -- -- -- -- -- -- 1.4* PTT 22.6 -- -- -- -- -- -- -- -- AST 822* 682* -- 634* -- 633* -- -- 1,219* ALT 675* 690* -- 615* -- 660* -- -- 1,022* ALKPHOS 103 93 -- 101 -- 102 -- -- 103 TNI -- -- 0.21* -- 0.33* -- 1.58* 1.18* -- Estimated Creatinine Clearance: 121.5 mL/min (based on SCr of 0.76 mg/dL). Vitals: 11/20/17 2300 11/21/17 1037 Weight: 70.7 kg (155 lb 13.8 oz) 70.7 kg (155 lb 13.8 oz) Recent Labs 11/21/17 2205 11/22/17 0305 PHART 7.35 7.37 PO2ART 85 69* Radiology and Other Diagnostic Procedures Review: Reviewed Associated attestation - Pedro Mendez MD - 11/22/2017 1:46 PM CDT Formatting of this note may be different from the original. MICU STAFF NOTE This note is an attestation for the resident/fellow note dated today. I have seen, personally fully evaluated, and discussed patient with the Medical ICU team. I agree with the objective findings and agree with the plan of care as documented by the resident with the exceptions noted. The patient is critically ill with the conditions listed below: Active Problems: Type 1 diabetes mellitus with complication (HCC) Diabetic ketoacidosis associated with type 1 diabetes mellitus (HCC) Tylenol overdose Schizophrenia (HCC) Bipolar disorder (HCC) 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) Acute encephalopathy Shock (HCC) On mechanically assisted ventilation (HCC) Liver injury NORMA (acute kidney injury) (HCC) I spent 35 minutes (excluding time spent performing or supervising any procedures) providing and personally directing critical care services including: Systems and physical examination Review and management of ICU prophylaxis and core measures Review of laboratory data Review of telemetry data Review of imaging studies Review of medications Fluid and electrolyte management Patient self-extubated overnight. Protecting airway this morning. Reports some mild abdominal pain but is overall feeling well. Plan for today includes obtain psych consultation, continued IV NAC per hepatology. Plan to obtain CT abd/pel per their recs. Start diet and add lantus this evening. Continue rifaximin and vitamin K. Staff name: Pedro Mendez MD Date: 11/22/2017 * Rosalinda Bains RN - 11/21/2017 7:34 PM CDT 0715: Report received from night RN. Bedside safety check complete. Lines and alarms verified. 0800: Pt assessed per ICU flowsheets. VSS per pt trends. Pt remains intubated and sedated with propofol and precedex. Pt able to follow commands. Pt on low dose levophed gtt, titrated to maintain MAP >65/systolic >90. Will continue to titrate accordingly. 0920: Sedation turned off for SAT. 1015: Pt extremely agitated. MICU team at bedside. Sedation restarted. 1900: RN at bedside for FSBS. Mitts placed back on patient and restraints remain in place as ordered. Vent began to alarm at 1902. Upon entering room, patient had self-extubated with SpO2 in high 90's. Patient oriented to person and place. Dr. Valverde at bedside for evaluation. Will continue to monitor patient. Shift report given to ELICEO Morales. * Keith Souza MD - 11/21/2017 2:32 PM CDT MICU Critical Care Progress Note Krunal Bertrand Admission Date: 11/21/2017 LOS: 0 days Assessment/Plan: Active Problems: Type 1 diabetes mellitus with complication (HCC) Diabetic ketoacidosis associated with type 1 diabetes mellitus (HCC) Tylenol overdose Schizophrenia (HCC) Bipolar disorder (HCC) 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) Acute encephalopathy Shock (HCC) On mechanically assisted ventilation (HCC) Liver injury NORMA (acute kidney injury) (HCC) Patient is critically ill secondary to the above diagnoses, but primarily concerned for the followin. Acute encephalopathy that is likely multifactorial from DKA and acute liver failure. 2. Acute hypoxemic respiratory failure secondary to encephalopathy. 3. Acute liver failure secondary to Tylenol ingestion and toxicity. 4. Diabetic ketoacidosis. 5. Circulatory shock 6. Elevated lipase without clear evidence of pancreatitis. 7. Electrolyte derangement due to critical illness 8. Cardiomyopathy is most likely consistent with stress-induced has no evidence of EKG changes to suggest acute cardiac syndrome. Exam: Vitals and I/O's reviewed Neuro-sedation lightened to assess for extubation and patient is agitated and not redirectable but moves all extremities HEENT: ET tube in place without oral lesion Neck: No lymphadenopathy Chest-clear bilaterally CV-regular rhythm rate Abd-benign Ext- no cyanosis or clubbing Skin- no rashes I spent 45 minutes evaluating the patient including personally reviewing images , labs, progress and consult notes, discussing with nursing, and examining patient. Plan of care includes the following: -Patient with altered mental status despite attempts to lighten sedation and extubate. Continue with mechanical ventilation to optimize oxygenation and ventilation. Continue with Precedex and reevaluate delirium. Continue insulin drip and start tube feeds. Gap is closed. Non-gap acidosis most likely secondary to fluid resuscitation and outside hospital given significant hyperchloremia. Will use free water and avoid chloride rich fluids. With normal renal function this will self-correct. No clear evidence of infection and with improving hepatic injury labs will hold empiric antimicrobials. I believe mental status is clouded by other factors and not solely representation of his acute liver injury. Aggressively replace electrolytes and particularly replace phosphorus. Serial evaluation of electrolytes. Continue nor epi for blood pressure support as needed. This is likely somewhat secondary to sedation meds but also complicated by his cardiomyopathy. Will need repeat echo prior to discharge to assess for recovery. 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 Continue nac. Keith Souza MD * Harlan Burkett, COURT ATTENDANT - 11/21/2017 7:08 AM CDT Formatting of this note may be different from the original. Critical Care Progress Note Krunal Bertrand Today's Date: 11/21/2017 Admission Date: 11/21/2017 LOS: 0 days Active Problems: Type 1 diabetes mellitus with complication (HCC) Diabetic ketoacidosis associated with type 1 diabetes mellitus (HCC) Tylenol overdose Schizophrenia (HCC) Bipolar disorder (HCC) 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) Acute encephalopathy Shock (HCC) On mechanically assisted ventilation (HCC) Liver injury NORMA (acute kidney injury) (HCC) Assessment/Plan: Hospital Course: Krunal Bertrand is a 47 y.o. male with a PMH of: DM1 w/ hx DKA, bipolar/ schizophrenia, depression w/ hx SI. He presented to [facility] on for AMS & was found to be in DKA & had an ALI. He was found with an empty bottle of TYL, unclear amount ingested but possibly 85 grams, level at OSH was 295 & started on NAC. He was intubated d/t AMS & DKA was treated w/ IVF/insulin prior to tx to [facility]. ALI now appears to be improving w/ down trend in both LFTs & INR. Hepatology consulted & continues on NAC. DKA now resolved and continues on an insulin drip. NEURO: hx Schizophrenia/Bipolar, Depression OD - hx SI - unknown intent of tyl OD - will need to discuss further when able - hold [employer] fluoxitine & haldol Acute Encephalopathy - in the setting of OD, NORMA & ALI - CT h 11/21 - no acute event - rifaximin - precedex & diprivan --> change to precedex + fent gtt CV: Shock Acute Systolic/Diastolic HF - likely secondary to acute liver injury and hypovolemia / DKA - EKG - w/o ST changes - trop - 0.21 -- will trend - echo 11/21 - LVEF 35-40%, grade 1 diastolic dysfunction, normal R side, normal valves - LA 2.9; will repeat & check scvo2 - NE 0.06mcg/kg/min - SR 70s PULM: Mechanical Ventilation - intubated at OSH for airway protection d/t AMS - AC 20/500 5/40%; not overbreathing - 7.31/26/164/15.4 - trialed this AM & became agitated & not redirectable --> plan for PS trial tomorrow AM - ABG q6 GI: Tylenol OD Acute Liver Injury - unknown amount of tyl ingested; possibly #170 of 500mg tabs or 85 grams - at OSH: TYL level 295, AST 1361, ALT 761, Tbili 0.2, INR 1.6, Etoh/UDS/TCA - Neg & started on NAC - this AM: AST 822, ALT 675, Tbili 0.2 & INR 1.2 - tyl level 0200 - 36 - MELD-NA - 9 - phos <1 & k 2.8; will aggressively replace - abd US 11/21 - mild hepatomegaly, diffuse hepatic steatosis, patent hepatic vessels; small volume ascites - hepatology consulted - continue NAC - in process: ceruloplasmin, hep panel, HSV, CMV, HIV, EBV, zoster, DANIKA, AMA, ASM-ab, alpha-1 Hx fundiplication - PPI RENAL: NORMA (improved) - in the setting of DKA/ALI - presumed normal baseline; at OSH Cr 1.9 at OSH & 1.1 on presentation to - Cr 1.11 -> 0.79 ENDO: DM1 DKA - at OSH: BG >1000, bicarb 2, A & AB.8/13/164/2 - hold [employer] aspart 25U TIDAC - a1c 11/21 - 10.1 - amylase 588, lipase 935, trigs 117 - US abd 11/21 - visualized portions of the pancrease are normal - repeat lipase in the AM - start TFs - titrate d5 1/2NS to remain on insulin drip - insulin gtt ID: - WBC 24.0; afebrile - CXR - no focal infiltrate - BC 11/21 - in process - SC 11/21 - ordered - UA - bland - PCT 11/21 - in process - stop empiric fluconazole Prophylaxis Review: Lines: Central Line, Arterial Line and Peripheral Line Tubes: ETT & OGT IVF: S/L Electrolytes: Reviewed and replaced as needed. Diet: Yes Insulin: Yes Urinary Catheter: Yes VTE ppx: heparin; SCDs GI ppx: protonix PT/OT: Yes Code status: Full Code Disposition: Remain in the MICU. - Pt critically ill with the above diagnoses. I spent 85 minutes providing critical care services including: reviewing outside records and obtaining history from the patient/family members performing a physical examination serially reviewing laboratory, telemetry, hemodynamic, oximetry, and respiratory data reviewing radiographic images reviewing medications managing fluids/electrolytes, antibiotics, ICU prophylaxis, and mechanical ventilation developing the overall plan of care. Harlan Burkett APRN Pulm/Critical Care Pager [phone] 11/21/2017 M3 team pager [phone] __ Subjective: Krunal Bertrand is a 47 y.o. male who is intubated & sedated. ROS: unable to obtain d/ t pt factors Objective: Medications: Scheduled Meds: chlorhexidine gluconate (PERIDEX) 0.12 % solution 15 mL 15 mL SEE ADMIN INSTRUCTIONS BID(8-20) heparin (porcine) PF syringe 5,000 Units 5,000 Units Subcutaneous Q8H pantoprazole (PROTONIX) injection 40 mg 40 mg Intravenous QDAY rifAXIMin (XIFAXAN) tablet 550 mg 550 mg Oral BID sodium phosphate 20 mmol in dextrose 5% (D5W) 250 mL IVPB 20 mmol Intravenous ONCE Continuous Infusions: acetylcysteine (ACETADOTE) 4 g in sodium chloride 0.45% (1/2NS) 1,000 mL IVPB 6.25 mg/kg/hr (11/21/17 0807) dexmedetomidine (PRECEDEX) 400 mcg in sodium chloride 0.9% (NS) 100 mL IV infusion 0.7 mcg/kg/hr (11/21/17 1110) fentaNYL (SUBLIMAZE) 1000 mcg/ NS 100 mL IV infusion (std conc)(premade) 40 mcg/hr (11/21/17 1142) insulin regular (NOVOLIN R) 100 Units in sodium chloride 0.9% (NS) 100 mL IV drip (std conc) 2.5 Units/hr (11/21/17 1218) norepinephrine (LEVOPHED) 4 mg in dextrose 5% (D5W) 250 mL IV drip (std conc ) 0.06 mcg/kg/min (11/21/17 1118) PRN and Respiratory Meds: Vital Signs: Last Filed Vital Signs: 24 Hour Range BP: 91/55 (11/21 1037) Temp: 36.6 C (97.9 F) (11/21 1200) Pulse: 80 (11/21 1300) Respirations: 20 PER MINUTE (11/21 1300) SpO2: 99 % (11/21 1300) O2 Delivery: Endotracheal Tube (Oral) (11/21 1200) SpO2 Pulse: 80 (11/21 1300) Height: 182.9 cm (72") (11/21 1037) BP: (91-135)/(55-79) ABP: (82-123)/(50-79) Temp: [36.5 C (97.7 F)-36.7 C (98 F)] Pulse: [74-98] Respirations: [9 PER MINUTE-26 PER MINUTE] SpO2: [93 %-100 %] O2 Delivery: Endotracheal Tube (Oral) Vitals: 11/20/17 2300 11/21/17 1037 Weight: 70.7 kg (155 lb 13.8 oz) 70.7 kg (155 lb 13.8 oz) Intake/Output Summary: (Last 24 hours) Intake/Output Summary (Last 24 hours) at 11/21/17 1325 Last data filed at 11/21/17 1300 Gross per 24 hour Intake 3810.06 ml Output 680 ml Net 3130.06 ml Physical Exam: General: intubated & sedated, appears stated age Head: Normocephalic, without obvious abnormality, atraumatic Eyes: Conjunctivae/corneas clear. PERRL Mouth/throat: Moist mucous membranes, ETT/OGT in place Neck: Supple, symmetrical, trachea midline Lungs: Clear to auscultation bilaterally; no wheeze Heart: Regular rate and rhythm, S1, S2 normal, no murmur appreciated Abdomen: Soft, non-tender. Bowel sounds normal Extremities: Extremities normal, atraumatic, no cyanosis or edema Pulses: 2+ and symmetric, all extremities Skin: No rashes or lesions noted Neurologic: sedated Artificial airway: Endotracheal Tube Ventilator/ Respiratory Therapy: Yes: SAT Failed Due To: Sustained anxiety, agitation Mode: V/AC+ Set Vt (ml): [500 milliliters] Tidal Volume Spont (mL): [480 milliliters-725 milliliters] Set RR: [20 breaths/minutes] Total Respiratory Rate (Breaths/Min): [20 breaths/minutes-28 breaths/minutes] Minute Volume (L/min): [10 liters/minutes-13.3 liters/minutes] O2%: [30 %-40 %] PIP Actual: [13 cm H20-23 cm H20] PEEP/CPAP: [5 cm H2O] Vent weaning trial: Per protocol Laboratory: LABS: Recent Labs 11/21/17 0155 11/21/17 0645 11/21/17 1008 NA 143 143 142 K 2.8* 2.8* 4.9 CL 119* 119* 121* CO2 14* 15* 12* GAP 10 9 9 BUN 17 14 12 CR 1.11 0.85 0.79 GLU 203* 100 242* CA 7.9* 7.5* 7.4* ALBUMIN 2.8* 2.8* 2.8* MG 1.9 2.3 2.1 PO4 <1.0* <1.0* 2.1 HGBA1C 10.1* -- -- TSH 1.070 -- -- Recent Labs 11/21/17 0155 11/21/17 0645 11/21/17 0800 11/21/17 1008 WBC 24.0* -- -- -- HGB 12.6* -- -- -- HCT 36.8* -- -- -- PLTCT 184 -- -- -- INR 1.2 -- -- -- PTT 22.6 -- -- -- AST 822* 682* -- 634* ALT 675* 690* -- 615* ALKPHOS 103 93 -- 101 TNI -- -- 0.21* -- Estimated Creatinine Clearance: 116.8 mL/min (based on SCr of 0.79 mg/dL). Vitals: 11/20/17 2300 11/21/17 1037 Weight: 70.7 kg (155 lb 13.8 oz) 70.7 kg (155 lb 13.8 oz) Recent Labs 11/21/17 0310 11/21/17 0835 PHART 7.34* 7.31* PO2ART 159* 164* Radiology and Other Diagnostic Procedures Review: Reviewed * Camille Licona, ELICEO - 11/21/2017 4:50 AM CDT Patient arrived to room 6304 via cart accompanied byEMS. Patient transferred to the bed with assistance. Bedside safety checks completed. Initial patient assessment completed, refer to flowsheet for details. Admission skin assessment completed by: Pressure Injury Present on Hospital Admission (within 24 hours): No 1. Occiput: No 2. Ear: No 3. Scapula: No 4. Spinous Process: No 5. Shoulder: No 6. Elbow: No 7. Iliac Crest: No 8. Sacrum/Coccyx: No 9. Ischial Tuberosity: No 10. Trochanter: No 11. Knee: No 12. Malleolus: No 13. Heel: No 14. Toes: No 15. Assessed for device associated injury No 16. Nursing Nutrition Assessment Completed No See Doc Flowsheet for additional wound details. Completed w/ Reina Max RN * Camille Licona RN - 11/21/2017 4:46 AM CDT 0145 - Pt arrived via EMS. VSS per pt trends. Precedex, Propofol, Insulin running from OSH. Continued here at previous rates. Levophed started during EMS transfer from OSH. MICU team at bedside. 0400 - Per poison control, they recommend running continuous dose of NAC at 12.5g vs the standard 6.25. MICU team notified. 0550 - Pt taken to CT. 0630 - Returned to floor. No acute events during travel. in this encounter H&P Notes * Mercedes Flroes DO - 11/20/2017 10:16 PM CDT Formatting of this note may be different from the original. Critical Care Admission History and Physical Name: Krunal Bertrand Admission Date: 11/21/2017 Assessment/Plan: Active Problems: Type 1 diabetes mellitus with complication (HCC) Diabetic ketoacidosis associated with type 1 diabetes mellitus (HCC) Tylenol overdose Schizophrenia (HCC) Bipolar disorder (HCC) 47 y.o. male with a PMH notable for type 1 DM, schizophrenia, bipolar, previous SI per charting who was found unresponsive 11/20 in DKA, and was found to have elevated tylenol level and transferred to for further care. NEURO/PSYCH: *Tylenol OD -chart review mentions previous suicidal ideations -OSH notes positive tylenol level of 295 with negative etoh, UDS and TCA screen. >intubated/sedated for airway protection with DKA and ingestion >tylenol level, EKG, ABG, osm, drug screen >acute liver injury workup as below Schizophrenia Bipolar -[employer] med list includes fluoxitine 20mg and haldol 10mg qhs >Will hold [employer] meds for now >will need psychiatric evaluation upon extubation CV: *Shock -likely secondary to acute liver injury and hypovolemia 2/2 DKA >will maintain MAP >65 with vasopressors as needed >cultures and empiric abx >TTE >arterial line for invasive monitoring >Will continue NICOM guided fluid resuscitation PULM: -intubated for airway protection >abg prn and maintain intubation for protection GI: *acute liver injury -reportedly there was an empty bottle of extra strength tylenol found, of total capacity of 170 tabs, although amount ingested is unknown -OSH presentation labs include tylenol level:295 mcg/ml, INR 1.6, AST: 1363, ALT : 761, Tbili: 0.2 MELD-Na score: 9 at 11/21/2017 1:55 AM MELD score: 9 at 11/21/2017 1:55 AM Calculated from: Serum Creatinine: 1.11 MG/DL at 11/21/2017 1:55 AM Serum Sodium: 143 MMOL/L (Rounded to 137) at 11/21/2017 1:55 AM Total Bilirubin: 0.2 MG/DL (Rounded to 1) at 11/21/2017 1:55 AM INR(ratio): 1.2 at 11/21/2017 1:55 AM Age: 47 years >Hepatology consult >NAC >full acute liver failure protocol workup including ABD ultrasound, viral and autoimmune serologies, frequent CMP, phos, glucose, ammonia, amylase, lipase, TEG, coagulation studies, PPI, empiric rifaxamin, fluconazole >aggressive electrolyte replacement *GERD Hx fundiplication >PPI RENAL: *NORMA -unknown baseline, Cr 1.9 at OSH, improving to 1.1 upon admission with hydration -likely prerenal component with DKA >urine lytes >hydration as below ID: >surveillance cultures and ppx fluconazole, rifaximin. allergic to rocephin ENDO: *T1DM DKA -[employer] regimen is reported as aspart 25U TIDAC -Patient found altered 11/20, with glucose >1000, bicarb: 2, AB.8/13/164/2, A -fluid resuscitation and insulin gtt started at OSH >DKA protocol >will fluid resuscitate with NS, switching to d5w 1/2NS when BG <250 >insulin gtt >aggressive electrolyte management and replacement >check a1c, beta hydroxybuterate FEN: NS 1L now, d5w 1/2NS at 200ml/hr when BG <250 with NICOM guidance. Lytes prn, NPO for now Ppx: heparin Disposition/Family: MICU admission. Per outside records: first relative Concetta Bertrand: [phone], Lanie Bertrand: [phone] Code Status: Full code by default Patient seen and discussed with Dr. Sainz. __ Primary Care Physician: No primary care provider on file. PCP Unknown Chief Complaint: DKA, tylenol overdose History of Present Illness: Information gleaned from chart review. Krunal Bertrand is a 47 y.o. male with reported history of type 1 diabetes, schizophrenia and bipolar, and previous suicidal ideation who presented to outside hospital today after being found unresponsive by his mother. Upon initial presentation in the ER he was noted to have glucose greater than 1000, anion gap of 35, creatinine 1.6, pH 6.8 and a bicarb of 2. He was initiated with aggressive fluid resuscitation and insulin drip and intubated for airway protection. His liver enzymes were noted to be elevated with AST 1300 and ALTs 700 with an INR of 1.6 and creatinine 1.9 and a Tylenol level of 2 95 mcg/mL and tbili of 0.2. He was admitted to the ICU and continued on the DKA protocol, along with NAC which was initiated. Per report there was discussion with his mother who noted there is an empty bottle of extra strength Tylenol found with the patient took a total capacity of supposedly 170 tabs, although unknown how many tabs were present initially. No last known normal is known. He was noted to have some hypotension requiring norepinephrine and was transferred to for further management. No past medical history on file. Past Surgical History: Procedure Laterality Date GASTRIC FUNDOPLICATION TONSILLECTOMY No family history on file. Social History Social History Marital status: N/A Spouse name: N/A Number of children: N/A Years of education: N/A Social History Main Topics Smoking status: Current Every Day Smoker Types: Cigarettes Smokeless tobacco: Not on file Alcohol use Not on file Drug use: Unknown Sexual activity: Not on file Other Topics Concern Not on file Social History Narrative No narrative on file Immunizations (includes history and patient reported): There is no immunization history on file for this patient. Allergies: Keflex [cephalexin] Medications: No prescriptions prior to admission. Review of Systems: Review of systems not obtained from patient due to patient factors. Objective: Medications: Scheduled Meds:Continuous Infusions: PRN and Respiratory Meds: Vital Signs: Last Filed Vital Signs: 24 Hour Range BP: 135/79 (11/21 299) Pulse: 78 (11/21 299) Respirations: 20 PER MINUTE (11/21 299) SpO2: 100 % (11/21 299) O2 Delivery: Endotracheal Tube (Oral) (11/21 199) Weight: 70.7 kg (155 lb 13.8 oz) (11/20 2299) BP: (109-135)/(68-79) Pulse: [78-81] Respirations: [18 PER MINUTE-26 PER MINUTE] SpO2: [99 %-100 %] O2 Delivery: Endotracheal Tube (Oral) Intensity Pain Scale 0-10 (Pain 1): (not recorded) Vitals: 11/20/172299 Weight: 70.7 kg (155 lb 13.8 oz) Critical Care Vitals: ICP Monitoring: PA Catheter: Hemodynamics/Oxycalcs: Intake/Output Summary: (Last 24 hours) Intake/Output Summary (Last 24 hours) at 11/21/17 0355 Last data filed at 11/21/17299 Gross per 24 hour Intake 197.92 ml Output 220 ml Net -22.08 ml Physical Exam: - CONSTITUTIONAL: Intubated/sedated. Appears stated age. Vital signs as above - HEAD: Head is normocephalic and atraumatic. - EYES: PERRL. Conjunctiva and sclera are clear. - ENT: Oropharynx is clear with good dentition. Mucus membranes are dry. - CHEST: Lungs, clear to auscultation bilaterally with no wheezes, rales or rhonchi. No accessory muscle use noted. Normal respiratory effort. - CV: tachycardic and regular, with no murmurs, rubs or gallops. No JVD. - ABD: Soft, non-tender, non-distended with normal, active bowel sounds appreciated. Small RLQ fluctuant bulge, without overlying warmth or color change. No significant hernia palpable - MS: trace b/l LE edema - HEME/LYMPH: No active bleeding. - SKIN: No rashes or lesions. No jaundice - PULSES: 2+ in BUE and BLE. - NEURO: moves all 4 extremities with pain. Artificial airway: Endotracheal Tube Ventilator/ Respiratory Therapy: Yes: Mode: V/AC+ Set Vt (ml): [500 milliliters] Tidal Volume Spont (mL): [500 milliliters-507 milliliters] Set RR: [20 breaths/minutes] Total Respiratory Rate (Breaths/Min): [20 breaths/minutes] Minute Volume (L/min): [9.88 liters/minutes-10.2 liters/minutes] O2%: [40 %] PIP Actual: [21 cm H20-23 cm H20] PEEP/CPAP: [5 cm H2O] Vent weaning trial: Not applicable Prophylaxis Review: Lines: Yes; Arterial Line; Indication: Continuous BP monitoring; Location: Radial Central Line; Indication: Med not deliverable peripherally; Type: Internal jugular Urinary Catheter: Yes; Retain torres due to: Need for accurate Intake and Output VTE: Pharmacological prophylaxis; SQ Heparin Lab Review: 24-hour labs: Results for orders placed or performed during the hospital encounter of (from the past 24 hour(s)) ACETAMINOPHEN LEVEL Collection Time: 11/21/17 1:55 AM [...] Range Color,UA YELLOW Turbidity,UA CLEAR CLEAR-CLEAR Specific Hamilton-Urine 1.040 (H) 1.003 - 1.035 pH,UA 5.0 [...] Sat-Arterial 99.2 (H) 95 - 99 % [id number] 17.8 (L) 21 - 28 MMOL/L Point of Care Testing: (Last 24 hours): Glucose: (!) 203 (11/21/17154) POC Glucose (Download): (!) 329 (11/21/17154) Radiology and Other Diagnostic Procedures Review: Pertinent radiology reviewed. Associated attestation - Courtney Sainz MD - 11/21/2017 5:44 AM CDT MICU STAFF NOTE Pt seen, personally fully examined, and discussed with housestaff team on . I have reviewed all pertinent labs, images, and diagnostic studies outlined in the resident's note. I agree with the objective findings and with the plan of care as documented by the resident with the exceptions noted. Mr. Bertrand is critically ill with DKA and acute liver injury secondary to tylenol toxicity. He is accepted in transfer from [facility] after presenting there on 11/20/17 morning via EMS with AMS and nausea/vomiting. Initial evaluation notable for BS ~1000, anion gap 35, 4+ urinary ketones, ABG 6.8/13/164/2 all consistent with DKA, for which he was started on insulin gtt and required intubation for obtundation and severe acidosis. With discovery of transaminitis (AST 1363, ALT 761) and elevated tylenol level 295 he was started on NAC; unknown ingestion time or quantity but mother did find a near-empty bottle of Extra-Stength Tylenol 500mg tabs (not sure how full it was to begin with). With this constellation he is transferred here for further workup and management. PMH is significant for type 1 DM with prior episodes of DKA, depression with h/o suicidal ideation, bipolar/schizophrenia. Exam notable for intubated and sedated, comfortable-appearing man in no acute distress. Briskly reactive pupils, ETT and OGT in place, moist mucous membranes , regular heart, clear breath sounds, soft benign abdomen with focal, slightly blue-tinged, mass-like "outpouching" in LLQ (?hernia but not well-defined, very soft), trace peripheral edema, skin without rash/lesions. Labs and imaging personally reviewed, notable for leukocytosis WBC 24, anemia Hb 12.6, nl plt 184 , nl INR 1.2 and fibrinogen, largely nl TEG, hypoK 2.8, hyperCl 119, serum CO2 14 with nl AG 10, resolving NORMA with Cr 1.1 (previously 1.9), hypoPhos <1, downtrending LFTs (AST 822, ALT 675), nl TBili 0.2, severe hypoalbuminemia 2.8, elevated amylase 588 & lipase 935, BOHB 0.5, LDH 830, ammonia 51, lactate 2.9, tylenol level 36, negative EtOH, UDS +benzos, UA with SG 1.04, 1+glucose, 1+ ketones, unimpressive for infection. ABG 7.34/30/159/18 consistent with partially compensated metabolic acidosis. CXR with low lung volumes, no focal infiltrates. Overall impression is that of DKA and its associated metabolic/electrolyte abnormalities, and of acute liver injury presumably secondary to tylenol toxicity (unknown ingestion intent), with associated multiorgan dysfunction including shock, acute encephalopathy, and acute respiratory failure. Both his DKA and acute liver injury have substantially improved by time of presentation here. MELD-Na on arrival is 9, and all biochemical indices are much better than anticipated/previous. Our plan regarding DKA is continued volume resuscitation, insulin gtt, maintenance hydration with D5-containing fluids when appropriate, serial chemistries with aggressive correction of electrolytes derangements ( particularly hypoK, hypoPhos), close monitoring of anion gap (already closed), and broad infectious workup to assess for possible infectious trigger. Our plan regarding tylenol toxicity and acute liver injury is continuation of IV N-acetylcysteine therapy, continued volume resuscitation as guided by fluid- responsiveness via NiCOM and vasopressor (NE) support to maintain SBP>90 or MAP> 60, empiric antibiotics with fluconazole in light of encephalopathy, close monitoring for progression of hepato-, renal-, and [employer]-toxicity with serial exam and labs (CBC, electrolytes, glucose, Cr, LFTs, coags, lactate); evaluate for other causes of liver failure with liver ultrasound with Doppler, acute hepatitis serologies, and remainder of extensive liver failure workup ( autoimmune serologies, additional viral serologies, ceruloplasmin, A1AT, ferritin, immunoglobulins, et al) as guided by hepatolology consultation, TTE to evaluate cardiac function, aggressive correction of electrolyte derangements particularly hypoPhos, ppx rifaximin for encephalopathy, hepatology consult in am (at this time, do not suspect he will require CRRT or MARS), baseline head CT to evaluate initial encephalopathy and for cerebral edema, wean sedation as tolerated to assess mental status, and psychiatry consult once extubated for potential intentional ingestion. Remainder of plan as documented in resident s note, including supportive ICU care. I spent 95 minutes (excluding time spent performing or supervising any procedures) providing and personally directing critical care services including : - systems review and physical examination - review of hemodynamic, respiratory, telemetry, laboratory, and imaging data - review of medications - management of fluids/electrolytes, antibiotics, vasopressors, gas exchange/ mechanical ventilation, liver failure workup, ICU prophylaxis, and ICU core measures - organization and coordination of care plan with nursing staff, residents, and consultants - directing the formulation of the overall plan of care outlined above Courtney Sainz [phone] in this encounter Consult Notes * Kwaku Montiel MD - 11/25/2017 12:32 PM CDT Associated Order(s): CONSULT CARDIOLOGY PHYSICIAN Formatting of this note may be different from the original. Cardiology Consult Note Admission Date: 11/21/2017 ATT: I have discussed with fellow and examined patient and agree with assessment and exam and plan. No s3, rales,edema. Options are limited and compliance-ahherence likely at issue going forward. Assessment/Plan: Krunal Bertrand is a 47 y.o. 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 He is mildly volume up on exam currently. Creatinine has normalized. BP has improved significantly. Recommendations: 1. Lasix 20 mg IV today. 2. Start lisinopril 5 mg daily. 3. Plan to start low dose carvedilol tomorrow if BP allows. 4. Plan for repeat echocardiogram to reassess LVEF as he nears discharge. 5. Given multiple comorbiditiies will not pursue ischemic evaluation this admission. Plan for thallium stress test after discharge if LVEF remains depressed. Would start ASA 81 mg daily. Patient evaluated with Dr. Dinesh Sinclair MD [id number] Reason for consult: Elevated troponin, decreased LVEF History of Present Illness: Krunal Bertrand is a 47 y.o. male with Type 1 diabetes , schizophrenia/bipolar disorder, depression, tobacco abuse who presented after suicide attempt with tylenol overdose. He initially presented to [facility] in [place] on 11/20 for AMS. He was found with an empty bottle of tylenol. Was found to have acute hepatitis with tylenol level 295 on presentation. He was also found to have acute pancreatitis and DKA. Was intubated. Also hypotensive and in septic shock and found to have streptococcal pneumonia. Had NORMA with creatinine peaking at 1.9 which has now normalized. Self extubated on 11/21 and is now hemodynamically stable. Upon presentation troponin was mildly elevated and peaked at 1.58 on 11/21. Echo on 11/21 showed normal size LV but LVEF 35-40% with global hypokinesis which has prompted cardiology consult. Pt is now alert and answering questions appropriately. He denies recent chest pain or shortness of breath. He denies chest discomfort with exertion prior to admission. He denies orthopnea. He notes mild bilateral peripheral edema for the last few weeks. SH: Has smoked 1/2 ppd for the last 30 years. FH: He is unsure but thinks an uncle had heart problems in his 40's. Past Medical History: Type 1 diabetes mellitus Schizophrenia (HCC) Bipolar disorder (HCC) Tobacco abuse Medications: Prescriptions Prior to Admission Medication Sig fluoxetine (PROZAC) 20 mg capsule Take 20 mg by mouth daily. haloperidol (HALDOL) 10 mg tablet Take 10 mg by mouth at bedtime daily. insulin aspart U-100 (NOVOLOG FLEXPEN) 100 unit/mL injection PEN Inject 25 Units under the skin three times daily with meals. insulin glargine (LANTUS SOLOSTAR, BASAGLAR) 100 unit/mL (3 mL) injection PEN Inject 30 Units under the skin at bedtime daily. Allergies: Keflex [cephalexin] and Erythromycin Past Surgical History: Past Surgical History: Procedure Laterality Date GASTRIC FUNDOPLICATION TONSILLECTOMY Family History: No family history on file. Social History: Social History Substance Use Topics Smoking status: Current Every Day Smoker Types: Cigarettes Smokeless tobacco: Not on file Alcohol use Not on file Review of Systems: A 14 point review of systems was performed and was found unremarkable except for HPI General: negative/normal. Eyes: negative/normal. Ears/Nose/Throat: negative/normal. Cardiovascular: mild edema Respiratory: negative/normal. Gastrointestinal: negative/normal. Genitourinary: negative/normal. Musculoskeletal: negative/normal. Skin: negative/normal. Neurologic: negative/normal. Psychiatric: negative/normal. Endocrine: negative/normal. Heme/Lymphatic: negative/normal. Physical Exam: Vital Signs BP: 133/75 (11/254) Temp: 37.2 C (98.9 F) (11/25 1133) Pulse: 84 (11/25 1133) Respirations: 18 PER MINUTE (11/25 1133) SpO2: 95 % (11/25 1133) O2 Delivery: None (Room Air) (11/25 1133) General: awake & oriented, no acute distress Head: normocephalic, atraumatic Eyes: non-icteric, clear conjunctivae, PERRL Mouth: moist mucus membranes, clear posterior oropharynx Neck: supple, no lymphadenopathy, no carotid bruits, mild JVD, R IJ central line in place CV: regular rate, normal rhythm, normal S1/S2, no murmurs, rubs, gallops, or clicks Lungs: clear to ausculation bilaterally, no wheezes/rhonchi/crackles Abdomen: normoactive bowel sounds, soft, non-tender, non-distended Extremities: warm, normal DP pulses bilaterally, 1+ edema bilateral lower extremities Neuro: no focal deficits Lab/Radiology/Other Diagnostic Tests: Results for orders placed or performed during the hospital encounter of (from the past 48 hour(s)) POC GLUCOSE Collection Time: 11/23/17 12:48 PM # # Low-High Glucose, POC 183 (H) 70 - 100 MG/DL URINE COLLECTION Collection Time: 11/23/17 2:00 PM # # Low-High Collection Period, Urine 24.0 Volume, Urine 3,624 MLS POC GLUCOSE Collection Time: 11/23/17 5:42 PM # # Low-High Glucose, POC 277 (H) 70 - 100 MG/DL POC GLUCOSE Collection Time: 11/23/17 8:38 PM # # Low-High Glucose, POC 203 (H) 70 - 100 MG/DL C DIFFICILE BY PCR Collection Time: 11/24/17 1:35 AM # # Low-High Battery Name C DIFFICILE PCR Specimen Description FECES Special Requests NONE C. Difficile Toxin B PCR NEGATIVE-wait 7 days to repeat test Report Status FINAL 11/24/2017 PROTIME INR (PT) Collection Time: 11/24/17 3:40 AM # # Low-High INR 1.2 0.8 - 1.2 ACETAMINOPHEN LEVEL Collection Time: 11/24/17 3:40 AM # # Low-High Acetaminophen <10.0 <20.1 MCG/ML PHOSPHORUS Collection Time: 11/24/17 3:40 AM # # Low-High Phosphorus 1.9 (L) 2.0 - 4.0 MG/DL MAGNESIUM Collection Time: 11/24/17 3:40 AM # # Low-High Magnesium 1.7 1.6 - 2.6 mg/dL CBC AND DIFF Collection Time: 11/24/17 3:40 AM # # Low-High White Blood Cells 9.1 4.5 - 11.0 K/UL RBC 3.31 (L) 4.4 - 5.5 M/UL Hemoglobin 10.0 (L) 13.5 - 16.5 GM/DL Hematocrit 29.2 (L) 40 - 50 % MCV 88.2 80 - 100 FL MCH 30.2 26 - 34 PG MCHC 34.2 32.0 - 36.0 G/DL RDW 14.3 11 - 15 % Platelet Count 130 (L) 150 - 400 K/UL MPV 8.4 7 - 11 FL Neutrophils 82 (H) 41 - 77 % Lymphocytes 15 (L) 24 - 44 % Monocytes 1 (L) 4 - 12 % Eosinophils 2 0 - 5 % Basophils 0 0 - 2 % Absolute Neutrophil Count 7.50 (H) 1.8 - 7.0 K/UL Absolute Lymph Count 1.40 1.0 - 4.8 K/UL Absolute Monocyte Count 0.10 0 - 0.80 K/UL Absolute Eosinophil Count 0.10 0 - 0.45 K/UL Absolute Basophil Count 0.00 0 - 0.20 K/UL COMPREHENSIVE METABOLIC PANEL Collection Time: 11/24/17 3:40 AM # # Low-High Sodium 139 137 - 147 MMOL/L Potassium 3.7 3.5 - 5.1 MMOL/L Chloride 108 98 - 110 MMOL/L Glucose 166 (H) 70 - 100 MG/DL Blood Urea Nitrogen 3 (L) 7 - 25 MG/DL Creatinine 0.78 0.4 - 1.24 MG/DL Calcium 8.3 (L) 8.5 - 10.6 MG/DL Total Protein 4.9 (L) 6.0 - 8.0 G/DL Total Bilirubin 0.6 0.3 - 1.2 MG/DL Albumin 2.7 (L) 3.5 - 5.0 G/DL Alk Phosphatase 99 25 - 110 U/L AST (SGOT) 236 (H) 7 - 40 U/L CO2 21 21 - 30 MMOL/L ALT (SGPT) 702 (H) 7 - 56 U/L Anion Gap 10 3 - 12 eGFR Non >60 >60 mL/min eGFR >60 >60 mL/min POC GLUCOSE Collection Time: 11/24/17 8:43 AM # # Low-High Glucose, POC 83 70 - 100 MG/DL POC GLUCOSE Collection Time: 11/24/17 10:52 AM # # Low-High Glucose, POC 91 70 - 100 MG/DL POC GLUCOSE Collection Time: 11/24/17 4:51 PM # # Low-High Glucose, POC 153 (H) 70 - 100 MG/DL POC GLUCOSE Collection Time: 11/24/17 8:43 PM # # Low-High Glucose, POC 278 (H) 70 - 100 MG/DL POC GLUCOSE Collection Time: 11/25/17 3:35 AM # # Low-High Glucose, POC 135 (H) 70 - 100 MG/DL PROTIME INR (PT) Collection Time: 11/25/17 3:40 AM # # Low-High INR 1.1 0.8 - 1.2 PHOSPHORUS Collection Time: 11/25/17 3:40 AM # # Low-High Phosphorus 2.5 2.0 - 4.0 MG/DL MAGNESIUM Collection Time: 11/25/17 3:40 AM # # Low-High Magnesium 1.6 1.6 - 2.6 mg/dL CBC AND DIFF Collection Time: 11/25/17 3:40 AM # # Low-High White Blood Cells 6.1 4.5 - 11.0 K/UL RBC 3.35 (L) 4.4 - 5.5 M/UL Hemoglobin 10.0 (L) 13.5 - 16.5 GM/DL Hematocrit 29.9 (L) 40 - 50 % MCV 89.2 80 - 100 FL MCH 29.8 26 - 34 PG MCHC 33.4 32.0 - 36.0 G/DL RDW 14.5 11 - 15 % Platelet Count 162 150 - 400 K/UL MPV 7.8 7 - 11 FL Neutrophils 62 41 - 77 % Lymphocytes 26 24 - 44 % Monocytes 9 4 - 12 % Eosinophils 3 0 - 5 % Basophils 0 0 - 2 % Absolute Neutrophil Count 3.70 1.8 - 7.0 K/UL Absolute Lymph Count 1.60 1.0 - 4.8 K/UL Absolute Monocyte Count 0.60 0 - 0.80 K/UL Absolute Eosinophil Count 0.20 0 - 0.45 K/UL Absolute Basophil Count 0.00 0 - 0.20 K/UL COMPREHENSIVE METABOLIC PANEL Collection Time: 11/25/17 3:40 AM # # Low-High Sodium 140 137 - 147 MMOL/L Potassium 3.5 3.5 - 5.1 MMOL/L Chloride 109 98 - 110 MMOL/L Glucose 143 (H) 70 - 100 MG/DL Blood Urea Nitrogen 3 (L) 7 - 25 MG/DL Creatinine 0.69 0.4 - 1.24 MG/DL Calcium 8.6 8.5 - 10.6 MG/DL Total Protein 5.1 (L) 6.0 - 8.0 G/DL Total Bilirubin 0.4 0.3 - 1.2 MG/DL Albumin 2.7 (L) 3.5 - 5.0 G/DL Alk Phosphatase 91 25 - 110 U/L AST (SGOT) 123 (H) 7 - 40 U/L CO2 21 21 - 30 MMOL/L ALT (SGPT) 503 (H) 7 - 56 U/L Anion Gap 10 3 - 12 eGFR Non >60 >60 mL/min eGFR >60 >60 mL/min BNP (B-TYPE NATRIURETIC PEPTI) Collection Time: 11/25/17 3:40 AM # # Low-High B Type Natriuretic Peptide 458.0 (H) 0 - 100 PG/ML POC GLUCOSE Collection Time: 11/25/17 7:50 AM # # Low-High Glucose, POC 99 70 - 100 MG/DL POC GLUCOSE Collection Time: 11/25/17 12:16 PM # # Low-High Glucose, POC 171 (H) 70 - 100 MG/DL Radiology: Pertinent radiology reviewed EKG: sinus rhythm Echo 08/24/17 1. Moderately depressed left ventricular function. Diffuse hypokinesis. Ejection fraction=35-40%. Normal filling pressure. 2. No valve disease. 3. Normal pulmonary artery pressure. 4. Normal right ventricle size and ejection fraction. 5. No intracardiac shunt. 6. No previous echocardiogram for comparison.[id number] * Honey Cook RN - 11/25/2017 9:17 AM CDT Associated Order(s): CONSULT DIABETES NURSE EDUCATOR INPATIENT DIABETES EDUCATION TEAM [facility] Reason for Consult: DKA, "Hx DM1 w/ prior DKA admit for DKA, was on inuslin gtt in the ICU now floor status restarted [employer] insulin. Please identify any barriers to taking his insulin as prescribed at home" Patient may benefit from: on-going outpatient psychotherapy; motivational interviewing This consult team does not write orders. Primary Team is responsible for placing orders. Met with Krunal Bertrand to discuss diabetes management. Pt with CO at bedside for SI. Pt was transferred from OSH with AL, ROCKY BARAJAS. Pt was found with an empty bottle of tylenol, unclear amount ingested. Introduced self and role. Pt is not familiar to this consult service. Discussed with patient; handouts provided: Diabetes disease process: Pt living with Type 1 Diabetes for 21 years. Monitoring and glucose goals: Pt reports he has a functioning meter at home with adequate supplies. Pt reports he checks his blood sugars 1-4x/day, and blood sugars fluctuate "up and down". Medication: [employer] meds include Lantus 30 units QD and Novolog 25 units TID. Pt reports adherence to this regimen as prescribed. Pt reports he only misses his Novolog if he is not going to eat a meal. Pt reports he receives his insulin from the [facility] in [place] where he sees a provider named Radha, unsure of last name. Pt reports his insulin is affordable and he has coverage. Pt denies issues obtaining insulin from clinic. Diet: Nutrition and consistent eating patterns: Pt currently eats 3 meals/day. Encouraged pt to eat 3 well balanced meals/day and no more than 1 snack/day. Pt reports his appetite has not been as great in the hospital compared to home. Pt reports he knows how to count carbohydrates and denies needing additional education. Hypoglycemia s/s, definition, prevention and treatment: Reviewed Rule of 15. Pt says he has 5-7 hypo events/ week and treats them with orange juice. Pt reports his hypoglycemia typically occurs during the day after he eats. Pt likely taking too high dose of meal time insulin at home. Pt may benefit from decrease in meal time insulin dose upon d/c. Pt reports he feels "shakey or sweaty" when blood sugars are in the 60s. Hyperglycemia s/s, definition, prevention and treatment. Reviewed meaning of HbA1c, current A1c 10.1% and goal of < 7%. Reviewed terminal manager complications. Social: When asked about obstacles and barriers to diabetes management, patient reports "I don't know". Unable to explore possible barriers. Pt answers all other questions and is receptive to discussion and education, but does not elaborate when asked about stressors or barriers. Psych has been consulted and following patient. Pt may benefit from on-going outpatient psychotherapy. At beginning of encounter, patient c/o diarrhea for the last week. Pt denies any fever or sick day contacts. Team aware of diarrhea, c diff negative. Appreciate the consult. Please contact diabetes educators with any additional questions or concerns. ANGIE Vasquez, BS, RN, CPT Digital Sales Manager Office: [phone] Pager: [phone] Diabetes Education Team Pager: [phone] Diabetes Team Office: [phone] * Shavon Mckeon MD - 11/22/2017 2:35 PM CDT Associated Order(s): CONSULT ADULT PSYCHIATRY PHYSICIAN Formatting of this note may be different from the original. PSYCHIATRY CONSULT NOTE Room/Bed: YR2841/01 Admission Date: 11/21/2017 LOS: 1 day Consult type: Opinion Reason for Consult: Suicidal Ideations Assessment: 1. Suicide attempt 2. Intentional Overdose, Tylenol 3. Schizoaffective Disorder, Bipolar Type Other: 1. Acute Liver Injury 2/2 Tylenol OD 2. Type 1 DM Recommendations: Hold all [employer] psychiatric medications in the setting of acute liver injury If patient has severe agitation with imminent harm to self or others would recommend 2.5mg PO/IM Zyprexa Q6H Continue CO, patient with continuing suicidal ideation Would NOT allow patient to leave against medical advice, if he attempts to elope would try redirection or call BRT. Attempted to call mother, Lanie Bertrand, for collateral information, no answer and voice mail has not been set up on phone. - Labs reviewed; AST: 1219; ALT: 1022 - Radiology imaging reviewed: CT without ICH or mass effect - EKG reviewed: Qtc 429 - OSH records reviewed Seen and discussed with: Dr. Noriega Please feel free to contact us with any additional questions or concerns by paging the consult team between 8am and 5pm on weekdays and between 8am and 3pm on weekends at [phone]. 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 Chief Concern: The voices made me want to kill myself. History of Present Illness: Krunal Bertrand is a 47 y.o. male with a past psychiatric history of schizoaffective disorder presents for hospitalization due to DKA and Tylenol Overdose. He was obtunded when he was admitted to [facility] and was intubated , but on admission to he self-extubated on 11/22 and has been verbal today. Psychiatry was consulted due to OD and continued suicidal ideations. Patient reports he did take the tylenol as an attempt to end his life due to ongoing paranoia that someone is out to hurt him and voices. He says he has been on medications for his schizophrenia but did not think they were helping. He currently is worried about leaving the hospital and thinks he might do something to hurt himself again. He is open to inpatient psychiatry admission once he is medically cleared. Patient was very somnolent on interview and limited information was obtained however, he gave permission for his mother to be called for collateral information. Past Psychiatric History: Hx of Schizophrenia Follows in [place] Current Psych meds per chart review: Haldol 10mg QHS and Prozac 10mg Patient is unclear on which medications he has been on in the past. Family Psychiatric History: Not obtained due to patient factors Substance Use: Not obtained due to patient factors. Psychosocial/Substance History: Lives with is mother. Social History Social History Marital status: N/A Spouse name: N/A Number of children: N/A Years of education: N/A Social History Main Topics Smoking status: Current Every Day Smoker Types: Cigarettes Smokeless tobacco: Not on file Alcohol use Not on file Drug use: Unknown Sexual activity: Not on file Other Topics Concern Not on file Social History Narrative No narrative on file Past Medical/Surgical History: No past medical history on file.: Past Surgical History: Procedure Laterality Date GASTRIC FUNDOPLICATION TONSILLECTOMY : Home Medications: Prescriptions Prior to Admission Medication Sig Dispense Refill Last Dose fluoxetine (PROZAC) 20 mg capsule Take 20 mg by mouth daily. haloperidol (HALDOL) 10 mg tablet Take 10 mg by mouth at bedtime daily. insulin aspart U-100 (NOVOLOG FLEXPEN) 100 unit/mL injection PEN Inject 25 Units under the skin three times daily with meals. Hospital Medications: Scheduled Meds: ascorbic acid (VITAMIN C) tablet [...] drip (std conc ) Stopped (11/22/17 0115) PRN and Respiratory Meds:ondansetron Q4H PRN, pancrelipase 20,000 Units/ sodium bicarbonate 650 mg(#) PRN (Broadloom Weaver from Rx) : Allergies: Keflex [cephalexin] and Erythromycin Review of Systems: A 14 point review of systems was negative except for: Constitutional: positive for fatigue Gastrointestinal: positive for nausea Neurological: positive for dizziness and weakness Vital Signs: Last Filed in 24 hours Vital Signs: 24 hour Range BP: 108/58 (11/22 1200) Temp: 37.2 C (99 F) (11/22 1200) Pulse: 98 (11/22 1200) Respirations: 19 PER MINUTE (11/22 1200) SpO2: 92 % (11/22 1200) O2 Delivery: None (Room Air) (11/22 1200) SpO2 Pulse: 97 (11/22 1200) BP: (100-116)/(58-68) ABP: (86-139)/(46-69) Temp: [37.1 C (98.7 F)-37.2 C (99 F)] Pulse: [81-118] Respirations: [9 PER MINUTE-25 PER MINUTE] SpO2: [92 %-99 %] O2 Delivery: None (Room Air) Mental Status Evaluation: General/Constitutional: WM, ill appearing, poor dentition, somnolent, cooperative with interview Eye Contact: Poor Behavior: Laying bed, mouth open, sleepy Speech: Soft volume, normal tone, fair articulation Mood: "I'm doing a little better " Affect: Blunted Thought Process: Linear and goal directed Thought Content: Reports ongoing SI/no HI Perception: Reports auditory hallucinations, paranoid delusions Associations: No loose associations Insight/Judgment: Fair/Good Orientation: x2 Recent and remote memory: fair Attention span and concentration: fair Cognition: fair Language: [employer] of knowledge and vocabulary: appropriate Focused Physical Exam: Neuro: somnolent Musculoskeletal: moves upper extremities spontaneously Lab/Radiology/Other Diagnostic Tests: 24-hour labs: Results for orders placed or performed during the hospital encounter of (from the past 24 hour(s)) COMPREHENSIVE METABOLIC PANEL Collection Time: 11/21/17 4:18 PM Result Value Ref Range Sodium 141 137 - 147 MMOL/L Potassium 3.5 3.5 - 5.1 MMOL/L Chloride 121 (H) 98 - 110 MMOL/L Glucose 134 (H) 70 - 100 MG/DL Blood Urea Nitrogen 11 7 - 25 MG/DL Creatinine 0.78 0.4 - 1.24 MG/DL Calcium 7.7 (L) 8.5 - 10.6 MG/DL Total Protein 4.6 (L) 6.0 - 8.0 G/DL Total Bilirubin 0.2 (L) 0.3 - 1.2 MG/DL Albumin 2.8 (L) 3.5 - 5.0 G/DL Alk Phosphatase 102 25 - 110 U/L AST (SGOT) 633 (H) 7 - 40 U/L CO2 14 (L) 21 - 30 MMOL/L ALT (SGPT) 660 (H) 7 - 56 U/L Anion Gap 6 3 - 12 eGFR Non >60 >60 mL/min eGFR >60 >60 mL/min PHOSPHORUS Collection Time: 11/21/17 4:18 PM Result Value Ref Range Phosphorus 1.7 (L) 2.0 - 4.0 MG/DL BLOOD GASES, ARTERIAL Collection Time: 11/21/17 4:18 PM Result Value Ref Range pH-Arterial 7.30 (L) 7.35 - 7.45 pCO2-Arterial 32 (L) 35 - 45 MMHG pO2-Arterial 124 (H) 80 - 100 MMHG Base Deficit-Arterial 9.9 MMOL/L O2 Sat-Arterial 98.5 95 - 99 % [id number]-Twd 16.7 (L) 21 - 28 MMOL/L MAGNESIUM Collection Time: 11/21/17 4:18 PM Result Value Ref Range Magnesium 2.0 1.6 - 2.6 mg/dL POC GLUCOSE Collection Time: 11/21/17 4:19 PM Result Value Ref Range Glucose, POC 120 (H) 70 - 100 MG/DL POC GLUCOSE Collection Time: 11/21/17 5:11 PM Result Value Ref Range Glucose, POC 103 (H) 70 - 100 MG/DL POC GLUCOSE Collection Time: 11/21/17 6:09 PM Result Value Ref Range Glucose, POC 106 (H) 70 - 100 MG/DL POC GLUCOSE Collection Time: 11/21/17 7:00 PM Result Value Ref Range Glucose, POC 106 (H) 70 - 100 MG/DL POC GLUCOSE Collection Time: 11/21/17 8:07 PM Result Value Ref Range Glucose, POC 170 (H) 70 - 100 MG/DL POC GLUCOSE Collection Time: 11/21/17 10:03 PM Result Value Ref Range Glucose, POC 195 (H) 70 - 100 MG/DL TROPONIN-I Collection Time: 11/21/17 10:05 PM Result Value Ref Range Troponin-I 1.58 (H) 0.0 - 0.05 NG/ML BASIC METABOLIC PANEL Collection Time: 11/21/17 10:05 PM Result Value Ref Range Sodium 140 137 - 147 MMOL/L Potassium 3.6 3.5 - 5.1 MMOL/L Chloride 118 (H) 98 - 110 MMOL/L CO2 13 (L) 21 - 30 MMOL/L Anion Gap 9 3 - 12 Glucose 227 (H) 70 - 100 MG/DL Blood Urea Nitrogen 9 7 - 25 MG/DL Creatinine 0.83 0.4 - 1.24 MG/DL Calcium 7.9 (L) 8.5 - 10.6 MG/DL eGFR Non >60 >60 mL/min eGFR >60 >60 mL/min PHOSPHORUS Collection Time: 11/21/17 10:05 PM Result Value Ref Range Phosphorus 3.4 2.0 - 4.0 MG/DL BLOOD GASES, ARTERIAL Collection Time: 11/21/17 10:05 PM Result Value Ref Range pH-Arterial 7.35 7.35 - 7.45 pCO2-Arterial 26 (L) 35 - 45 MMHG pO2-Arterial 85 80 - 100 MMHG Base Deficit-Arterial 10.1 MMOL/L O2 Sat-Arterial 96.6 95 - 99 % [id number]-HYY-Xeu 16.5 (L) 21 - 28 MMOL/L POC GLUCOSE Collection Time: 11/21/17 11:13 PM Result Value Ref Range Glucose, POC 177 (H) 70 - 100 MG/DL POC GLUCOSE Collection Time: 11/22/17 12:24 AM Result Value Ref Range Glucose, POC 187 (H) 70 - 100 MG/DL POC GLUCOSE Collection Time: 11/22/17 1:12 AM Result Value Ref Range Glucose, POC 186 (H) 70 - 100 MG/DL TROPONIN-I Collection Time: 11/22/17 1:43 AM Result Value Ref Range Troponin-I 1.18 (H) 0.0 - 0.05 NG/ML POC GLUCOSE Collection Time: 11/22/17 2:23 AM Result Value Ref Range Glucose, POC 155 (H) 70 - 100 MG/DL POC GLUCOSE Collection Time: 11/22/17 3:04 AM Result Value Ref Range Glucose, POC 155 (H) 70 - 100 MG/DL CBC AND DIFF Collection Time: 11/22/17 3:05 AM Result Value Ref Range White Blood Cells 20.1 (H) 4.5 - 11.0 K/UL RBC 3.83 (L) 4.4 - 5.5 M/UL Hemoglobin 11.5 (L) 13.5 - 16.5 GM/DL Hematocrit 33.8 (L) 40 - 50 % MCV 88.1 80 - 100 FL MCH 30.1 26 - 34 PG MCHC 34.2 32.0 - 36.0 G/DL RDW 14.6 11 - 15 % Platelet Count 159 150 - 400 K/UL MPV 8.6 7 - 11 FL Neutrophils 91 (H) 41 - 77 % Lymphocytes 8 (L) 24 - 44 % Monocytes 1 (L) 4 - 12 % Eosinophils 0 0 - 5 % Basophils 0 0 - 2 % Absolute Neutrophil Count 18.10 (H) 1.8 - 7.0 K/UL Absolute Lymph Count 1.60 1.0 - 4.8 K/UL Absolute Monocyte Count 0.30 0 - 0.80 K/UL Absolute Eosinophil Count 0.10 0 - 0.45 K/UL Absolute Basophil Count 0.00 0 - 0.20 K/UL PROTIME INR (PT) Collection Time: 11/22/17 3:05 AM Result Value Ref Range INR 1.4 (H) 0.8 - 1.2 LIPASE Collection Time: 11/22/17 3:05 AM Result Value Ref Range Lipase 908 (H) 11 - 82 U/L COMPREHENSIVE METABOLIC PANEL Collection Time: 11/22/17 3:05 AM Result Value Ref Range Sodium 140 137 - 147 MMOL/L Potassium 3.3 (L) 3.5 - 5.1 MMOL/L Chloride 119 (H) 98 - 110 MMOL/L Glucose 172 (H) 70 - 100 MG/DL Blood Urea Nitrogen 7 7 - 25 MG/DL Creatinine 0.76 0.4 - 1.24 MG/DL Calcium 7.9 (L) 8.5 - 10.6 MG/DL Total Protein 4.4 (L) 6.0 - 8.0 G/DL Total Bilirubin 0.3 0.3 - 1.2 MG/DL Albumin 2.6 (L) 3.5 - 5.0 G/DL Alk Phosphatase 103 25 - 110 U/L AST (SGOT) 1,219 (H) 7 - 40 U/L CO2 15 (L) 21 - 30 MMOL/L ALT (SGPT) 1,022 (H) 7 - 56 U/L Anion Gap 6 3 - 12 eGFR Non >60 >60 mL/min eGFR >60 >60 mL/min PHOSPHORUS Collection Time: 11/22/17 3:05 AM Result Value Ref Range Phosphorus 2.2 2.0 - 4.0 MG/DL BLOOD GASES, ARTERIAL Collection Time: 11/22/17 3:05 AM Result Value Ref Range pH-Arterial 7.37 7.35 - 7.45 pCO2-Arterial 28 (L) 35 - 45 MMHG pO2-Arterial 69 (L) 80 - 100 MMHG Base Deficit-Arterial 7.9 MMOL/L O2 Sat-Arterial 94.3 (L) 95 - 99 % Rijkxxfiysz-IZV-Mxc 18.0 (L) 21 - 28 MMOL/L ACETAMINOPHEN LEVEL Collection Time: 11/22/17 3:05 AM Result Value Ref Range Acetaminophen <10.0 <20.1 MCG/ML MAGNESIUM Collection Time: 11/22/17 3:05 AM Result Value Ref Range Magnesium 1.8 1.6 - 2.6 mg/dL FACTOR 5 ASSAY Collection Time: 11/22/17 3:05 AM Result Value Ref Range Factor 5 49 (L) 50 - 150 % AMMONIA Collection Time: 11/22/17 3:05 AM Result Value Ref Range Ammonia 47 (H) 9 - 35 MCMOL/L POC GLUCOSE Collection Time: 11/22/17 5:07 AM Result Value Ref Range Glucose, POC 134 (H) 70 - 100 MG/DL POC GLUCOSE Collection Time: 11/22/17 6:11 AM Result Value Ref Range Glucose, POC 111 (H) 70 - 100 MG/DL POC GLUCOSE Collection Time: 11/22/17 6:58 AM Result Value Ref Range Glucose, POC 96 70 - 100 MG/DL POC GLUCOSE Collection Time: 11/22/17 7:16 AM Result Value Ref Range Glucose, POC 101 (H) 70 - 100 MG/DL POC GLUCOSE Collection Time: 11/22/17 8:19 AM Result Value Ref Range Glucose, POC 180 (H) 70 - 100 MG/DL POC GLUCOSE Collection Time: 11/22/17 8:59 AM Result Value Ref Range Glucose, POC 175 (H) 70 - 100 MG/DL BASIC METABOLIC PANEL Collection Time: 11/22/17 10:12 AM Result Value Ref Range Sodium 139 137 - 147 MMOL/L Potassium 3.6 3.5 - 5.1 MMOL/L Chloride 115 (H) 98 - 110 MMOL/L CO2 17 (L) 21 - 30 MMOL/L Anion Gap 7 3 - 12 Glucose 187 (H) 70 - 100 MG/DL Blood Urea Nitrogen 5 (L) 7 - 25 MG/DL Creatinine 0.81 0.4 - 1.24 MG/DL Calcium 7.8 (L) 8.5 - 10.6 MG/DL eGFR Non >60 >60 mL/min eGFR >60 >60 mL/min PHOSPHORUS Collection Time: 11/22/17 10:12 AM Result Value Ref Range Phosphorus 2.1 2.0 - 4.0 MG/DL POC GLUCOSE Collection Time: 11/22/17 10:12 AM Result Value Ref Range Glucose, POC 167 (H) 70 - 100 MG/DL POC GLUCOSE Collection Time: 11/22/17 11:04 AM Result Value Ref Range Glucose, POC 160 (H) 70 - 100 MG/DL POC GLUCOSE Collection Time: 11/22/17 12:54 PM Result Value Ref Range Glucose, POC 147 (H) 70 - 100 MG/DL TROPONIN-I Collection Time: 11/22/17 1:00 PM Result Value Ref Range Troponin-I 0.39 (H) 0.0 - 0.05 NG/ML ACETAMINOPHEN LEVEL Collection Time: 11/22/17 1:00 PM Result Value Ref Range Acetaminophen <10.0 <20.1 MCG/ML POC GLUCOSE Collection Time: 11/22/17 3:11 PM Result Value Ref Range Glucose, POC 141 (H) 70 - 100 MG/DL Shavon Mckeon MD Associated attestation - Kyra Noriega MD - 11/22/2017 11:49 PM CDT Formatting of this note may be different from the original. ATTESTATION I personally performed the healy portions of the E/M visit, discussed case with resident and concur with resident documentation of history, physical exam, assessment, and treatment plan unless otherwise noted. Staff name: Kyra Noriega MD Date: 11/22/2017 * Daniel York MBBS - 11/21/2017 12:28 PM CDT Associated Order(s): CONSULT HEPATOLOGY PHYSICIAN Formatting of this note may be different from the original. General Consult Note Admission Date: 11/21/2017 LOS: 0 days Reason for Consult: Tylenol overdose Consult type: Opinion with orders Assessment: Mr. Bertrand is a 47-year-old male with history of type 1 diabetes, major depression,? Bipolar/schizophrenia, history of suicidal ideation who was transferred from [facility] with DKA and acute liver injury/ failure secondary to excessive Tylenol intake. Hepatology was consulted for comanagement and further recommendations. 1) Acute liver injury/ failure: AST 822, AST 675, alk phos 103, INR 1.6 on outside hospital which is improved to 1.2. Tylenol level 296 on 11/20 and 36 on arrival to . Unclear what time patient ingested Tylenol but his mother found empty bottle of extra strength Tylenol near him. Intubated on arrival to [facility] but his encephalopathy is most likely multifactorial and DKA is playing a part as well. He has history of suicidal ideation, uncontrolled depression,? Bipolar and schizophrenia. He was started on NAC at outside hospital. Ammonia level 51. CT head with normal findings. Ultrasound abdomen revealed hepatomegaly and diffuse hepatic steatosis. Spleen size is 12 cm. 2) Hypophosphatemia. 3) Type 1 DM, recent DKA. 4) HFreF: LVEF 35-40%. Normal PAP and right sided system. 5) ? Bipolar/schizophrenia, history of suicidal ideation. Recommendations: - Replace Phosphorous aggressively. - Continue pressure support with norepinephrine and/or resuscitation with IVF to maintain SBP >90 mmHg or MAP >65. - Minimze sedation to maintain RASS close to 0. - Continue NAC 150mg/kg over 1 hour loading dose followed by, 50mg/kg over 4 hours followed by, 125 mg/kg over 19 hours followed by, 6.25 mg/kg/hour continuously until clear signs of liver recovery are noted. - Initiate Ceftriaxone 1 g daily and Fluconazole 200 mg daily (Pharmacy to dose based on renal function as needed), continue Rifaximin 550 mg PO BID. - Initiate IV pantoprazole 40 mg BID, monitor for signs of overt GI or other bleeding. - Administer Vitamin K 10 mg IV or SQ daily for three days for elevated INR, Vitamin B complex daily, Folic acid 1 mg daily and Ascorbic acid 500 mg daily. - Noted unremarkable viral hepatitis serology.. - Initiate Nutrition support early if possible with caloric intake based on Hall-Talco Equation at ideal body weight (caloric requirement X 1.20). This is generally 20-25 kcal/kg in the acute phase and 25-30 kcal/kg in the recovery phase. - Check CBC w/ diff q 24 hours, INR q 12 hours, PTT q 12 hours, Fibrinogen q 24 hours, Blood type, CMP q 12 hours, Mag q 24 hours, Phos q 6 hours, Factor V q 24 hours, Arterial Ammonia q 24, HIV serology, Blood Cultures (aerobic and anaerobic x2) now and q3 days and PRN as clinically indicated, f/u urine cx, POC glucose q2 hours. Thank you for the consult. We will continue to follow along. Patient seen and discussed with Dr. Hughes. Daniel York MD Gastroenterology and Hepatology [phone] History of Present Illness: Krunal Bertrand is a 47 y.o. male who was transferred from [facility] where he presented on 20 November with altered mental status, nausea and vomiting. He was found to be unresponsive by his mother who also noticed empty bottle of extra strength Tylenol by him. He was then taken to ED and patient was found to have a blood glucose > 1000 and was started on insulin drip. He had abnormal liver chemistry and AST was 1300, 8700 and INR was 1.6. His Tylenol level was 296. He was started on NAC and was transferred to [facility] for further care. Patient has a history of depression and suicidal ideation. No past medical history on file. Past Surgical History: Procedure Laterality Date GASTRIC FUNDOPLICATION TONSILLECTOMY Social History Social History Marital status: N/A Spouse name: N/A Number of children: N/A Years of education: N/A Social History Main Topics Smoking status: Current Every Day Smoker Types: Cigarettes Smokeless tobacco: Not on file Alcohol use Not on file Drug use: Unknown Sexual activity: Not on file Other Topics Concern Not on file Social History Narrative No narrative on file No family history on file. Allergies: Keflex [cephalexin] and Erythromycin Scheduled Meds: chlorhexidine gluconate (PERIDEX) 0.12 % solution 15 mL 15 mL SEE ADMIN INSTRUCTIONS BID(8-20) heparin (porcine) PF syringe 5,000 Units 5,000 Units Subcutaneous Q8H pantoprazole (PROTONIX) injection 40 mg 40 mg Intravenous QDAY rifAXIMin (XIFAXAN) tablet 550 mg 550 mg Oral BID sodium phosphate 20 mmol in dextrose 5% (D5W) 250 mL IVPB 20 mmol Intravenous ONCE Continuous Infusions: acetylcysteine (ACETADOTE) 4 g in sodium chloride 0.45% (1/2NS) 1,000 mL IVPB 6.25 mg/kg/hr (11/21/17 0807) dexmedetomidine (PRECEDEX) 400 mcg in sodium chloride 0.9% (NS) 100 mL IV infusion 0.7 mcg/kg/hr (11/21/17 1110) fentaNYL (SUBLIMAZE) 1000 mcg/ NS 100 mL IV infusion (std conc)(premade) 40 mcg/hr (11/21/17 1142) insulin regular (NOVOLIN R) 100 Units in sodium chloride 0.9% (NS) 100 mL IV drip (std conc) 2.5 Units/hr (11/21/17 1218) norepinephrine (LEVOPHED) 4 mg in dextrose 5% (D5W) 250 mL IV drip (std conc ) 0.06 mcg/kg/min (11/21/17 1118) PRN and Respiratory Meds:pancrelipase 20,000 Units/ sodium bicarbonate 650 mg(# ) PRN (Broadloom Weaver from Rx) Review of Systems: Review of systems not obtained from patient due to patient factors. Vital Signs: Last Filed in 24 hours Vital Signs: 24 hour Range BP: 91/55 (11/21 1037) Temp: 36.6 C (97.9 F) (11/21 1200) Pulse: 82 (11/21 1200) Respirations: 20 PER MINUTE (11/21 1200) SpO2: 100 % (11/21 1200) O2 Delivery: Endotracheal Tube (Oral) (11/21 1200) SpO2 Pulse: 82 (11/21 1200) Height: 182.9 cm (72") (11/21 1037) BP: (91-135)/(55-79) ABP: (82-123)/(50-79) Temp: [36.5 C (97.7 F)-36.7 C (98 F)] Pulse: [74-98] Respirations: [9 PER MINUTE-26 PER MINUTE] SpO2: [93 %-100 %] O2 Delivery: Endotracheal Tube (Oral) Physical Exam: General appearance Intuabted and sedated Head Normocephalic, without obvious abnormality, atraumatic Eyes conjunctivae/corneas clear. EOM's intact. pupils equally round, accommodation normal. Nose Nares normal. No drainage or sinus tenderness. Throat Lips, mucosa, and tongue normal. Teeth and gums normal Neck supple, symmetrical, trachea midline, and no JVD Back symmetric, no curvature. ROM normal. No CVA tenderness Lungs clear to auscultation bilaterally Chest wall no tenderness Heart regular rate and rhythm, S1, S2 normal, no murmur, click, rub or gallop Abdomen soft, non-tender. Bowel sounds normal. No masses, No organomegaly Extremities extremities normal, atraumatic, no cyanosis or edema Pulses 2+ and symmetric Skin Skin color, texture, turgor normal. No rashes or lesions Lab/Radiology/Other Diagnostic Tests: Hematology: Lab Results Component Value Date HGB 12.6 11/21/2017 HCT 36.8 11/21/2017 PLTCT 184 11/21/2017 WBC 24.0 11/21/2017 NEUT 93 11/21/2017 ANC 22.30 11/21/2017 ALC 1.50 11/21/2017 ANGIE 1 11/21/2017 AMC 0.20 11/21/2017 ABC 0.00 11/21/2017 MCV 89.0 11/21/2017 MCHC 34.3 11/21/2017 MPV 8.4 11/21/2017 RDW 14.1 11/21/2017 Pertinent radiology reviewed. ELVIS Bah Pager [phone] Associated attestation - Ciera Hughes MD - 11/21/2017 5:28 PM CDT ATTESTATION I personally performed the healy portions of the E/M visit, discussed case with the Fellow and concur with documentation of history, physical exam, assessment, and treatment plan unless otherwise noted. 47yo M with intentional Tylenol OD (at least 1 bottle extra strength Tylenol, presumed ingested 11/20) in the setting of DKA with severe metabolic acidosis pH 6.8 on arrival. ALI/LONG TERM (MS likely multifactorial) improving with INR now <1.5. Continue supportive cares as outlined by fellow. He should recover from a liver standpoint. Recommend aggressive replacement of Phos. Electrolytes are extra deranged from DKA. * Viola Santa - 11/21/2017 12:20 PM CDT Associated Order(s): CONSULT DIETITIAN CLINICAL NUTRITION Clinical Nutrition Assessment Summary Nutrition Assessment of Patient: BMI Categories Adult: Acceptable: 18.5-24.9 Current Oral Intake: NPO Estimated Calorie Needs: 1770 (25 kcal/kg 70.7 kg ) Estimated Protein Needs: 106 (1.5g/kg 70.7 kg ) Oral Diet Order: NPO Current EN Order: Isosource 1.5 @ 40ml/r + 2 prosource packs/d. Provides 1560 kcal, 95g protein, and 730ml water dialy 47yoM with PMH type 1 DM, gastric fundiplication, schizophrenia, bipolar, previous SI who was found unresponsive 11/20 in DKA, and was found to have elevated tylenol level and transferred to for further care. Noted to have acute liver injury and multiorgan dysfunction. Pt is intubated and sedated with precedex. 1 pressor currently on board. No family at bedside and RN working to keep pt calm as he was attempting to pull out ETT tube. He is on an insulin gtt. OGT in place, consult received to provide TF recs. Recommendation: With pressor on board, rec fiber-free formula of Nutren 1.5 @ 50ml/hr + 2 prosource packs/d. Provides 1920 kcal, 111g protein, and 912ml water daily. 125ml water flush Q4 hours or per team discretion. Intervention / Plan: Assessed adequacy/tolerance of recent intakes EN recs Nutrition Diagnosis: Nutrition Diagnosis: Inadequate protein-energy intake Etiology: vent, medical status Signs & Symptoms: NPO, pending EN start Goals: EN tolerated and meeting >85% of nutritional needs Time Frame: Within 24 Hours Carmen Santa, CARLYN, LD, CNSC *[facility] office [phone] in this encounter Miscellaneous Notes * Case Mgmt DC Plan - Keiko Sams - 11/25/2017 2:43 PM CDT Case Management Admission Assessment NAME:Krunal Bertrand :1969 AGE: 47 y.o. ADMISSION DATE: 11/21/2017 DAYS ADMITTED: LOS: 4 days Todays Date: 11/25/2017 Source of Information: pt and motherLanie [phone] Plan SW anticipates pt to AL back home via family transport vs. [facility] IP Psych when medically stable. Plan: CM Assessment, Assist PRN with /NCM Services, Discharge Planning for Home Anticipated SW met with pt who confirms diagnosis of Schizophrenia. Pt reports seeing psychiatrist Dr. Bella at [facility] at [address], [place]. Pt denies difficulty accessing medications but states if his CM Jimmy cannot provide transportation, pt misses appt. SW inquired about MH history. Pt states he has been in IP Psych in [place] in the past. Pt is agreeable to [facility] IPR psych if needed. Pt states he does not have Jimmy CHAN's contact information but states SW can call motherLanie. SW called [phone]. Mother confirms pt does not receive HCBS and denied history of HH or placement. Lanie reports she will call back with Jimmy's contact information to facilitate transportation at Co and continuum of care at AL. Patient Address/Phone [address] [facility] [phone] (home) Emergency Contact Extended Emergency Contact Information Primary Emergency Contact: JerzyLanie [facility] Mobile Relation: Mother Secondary Emergency Contact: Concetta Bertrand [facility] Mobile Relation: Daughter Healthcare Directive Healthcare Directive: No, patient does not have a healthcare directive Would patient like to fill out a (a new) Healthcare Directive?: No, patient declined Transportation Does the patient need discharge transport arranged?: No Transportation Name, Phone and Availability #1: pt states mother or CM Jimmy can provide transportation at [place] Does the patient use Medicaid Transportation?: No Expected Discharge Date Expected Discharge Date: 11/27/17 Living Situation Prior to Admission ? Living Arrangements Type of Residence: Home, independent Living Arrangements: Parent (mother) How many levels in the residence?: 2 Can patient live on one level if needed?: Yes Does residence have entry and/or side stairs?: Yes Assistance needed prior to admit or anticipated on discharge: No ? Level of Function Prior level of function: Independent ? Cognitive Abilities Cognitive Abilities: Alert and Oriented, Engages in problem solving and planning , Participates in decision making Financial Resources ? Coverage Primary Insurance[place] ([place] Secondary Insurance: No insurance Additional Coverage: RX ? Source of Income Source Of Income: SSDI ? Financial Assistance Needed? Psychosocial Needs ? Mental Health Mental Health History: Yes (schizophrenia) Mental Health Symptoms: Detachment from reality (delusions) or paranoia, Confused thinking, Inability to cope with daily problems or stress, Excessive fears/worries, Feeling depressed ? Substance Use History Substance Use History Screen: No ? Other Current/Previous Services ? PCP No primary care provider on file., None, None ? Pharmacy [facility] ([facility]) [address] [place] [address] [facility] [id number] ? Durable Medical Equipment Durable Medical Equipment [...] ? Outpatient Therapy PT: No OT: No HUMAN RESOURCES PSYCHOLOGIST: No ? Fdc Facility/Shelter SNF: No NH: No ? Inpatient Rehab IPR: No ? Long-Term Acute Care Hospital LTACH: No ? Acute Hospital Stay Acute Hospital Stay: In the past Was patient's stay within the last 30 days?: No -Corrine Sams, [facility] *[phone] * Care Coordination-Inpatient - Mercedes Malave DO - 11/23/2017 11:59 AM CDT 47 y/o male admitted for DKA and acute liver failure will transfer out of MICU to [facility] on the [employer] service. MICU team will page [employer] for checkout. Mercedes Malave DO Internal Medicine PGY-3 Pager [phone] * Case Mgmt DC Plan - Brenden Rosen - 11/21/2017 9:44 AM CDT SW contacted patient's daughter-Concetta. She will be coming to the hospital this afternoon. She is driving from [place], [place]. SW to meet with her to assess once she arrives. Patient is intubated and unable to communicate. 1430: SW attempted to meet with patient's daughter/family. No one at bedside. Brenden Rosen, [facility] [phone] (phone) [phone] (pager) * Critical Results - Rosalinda Bains RN - 11/21/2017 7:31 AM CDT Critical result or procedure called (document test and value, and read back): Phos <1 Time MD/FURNACE FILLER Notified: [phone] MD/FURNACE FILLER Name: Dr. Alexis ARAGON/FURNACE FILLER Response/Orders Given: Currently infusing * Critical Results - Camille Licona RN - 11/21/2017 4:52 AM CDT Critical result or procedure called (document test and value, and read back): Phos < 1 Time MD/FURNACE FILLER Notified: [phone] MD/FURNACE FILLER Name: Aicha ARAGON/FURNACE FILLER Response/Orders Given: Replacement electrolytes ordered. * Procedures (Immed Post or Bedside) - Mercedes Flores DO - 11/21/2017 3: 09 AM CDT Associated Order(s): ARTERIAL LINE Procedure Note Krunal Bertrand is a 47 y.o. male. Arterial Line Date/Time: 11/21/2017 3:09 AM Performed by: MERCEDES FLORES Authorized by: COURTNEY SAINZ Consent: The procedure was performed in an emergent situation. Patient identity confirmed: verbally with patient, arm band and hospital- assigned identification number Time out: Immediately prior to procedure a "time out" was called to verify the correct patient, procedure, equipment, aviation support equipment repairer and site/side marked as required. Preparation: Patient [...] used. Tolerated procedure well. No immediate complications. Mercedes Flores DO Associated attestation - Courtney Sainz MD - 11/21/2017 5:44 AM CDT I was immediately available for supervision/assistance during the entire procedure performed by the housestaff team. Courtney Sainz [phone] in this encounter Plan of Treatment Not on fileas of this encounter Procedures Procedure Name Priority Date/Time Associated Diagnosis Comments TELEMETRY STRIPS-SCAN 12/01/2017 Results for this 2:05 PM CDT procedure are in the results section. ECG-SCAN 11/26/2017 Results for this 4:50 PM CDT procedure are in the results section. ECG-SCAN 11/26/2017 Results for this 4:50 PM CDT procedure are in the results section. in this encounter Results * TELEMETRY STRIPS-SCAN (12/01/2017 2:05 PM) Narrative Ordered by an unspecified provider. * POC GLUCOSE (11/27/2017 10:49 AM) Component Value Ref Range Glucose, POC 142 (H) 70 - 100 MG/DL Specimen Performing Laboratory MAIN LAB [address] [place] [address] * POC GLUCOSE (11/27/2017 7:12 AM) Component Value Ref Range Glucose, POC 159 (H) 70 - 100 MG/DL Specimen Performing Laboratory MAIN LAB [address] [place], [place] [id number] * PHOSPHORUS (11/27/2017 4:35 AM) Component Value Ref Range Phosphorus 3.3 2.0 - 4.0 MG/DL Specimen Performing Laboratory Blood MAIN LAB [address] [place] [address] * MAGNESIUM (11/27/2017 4:35 AM) Component Value Ref Range Magnesium 1.9 1.6 - 2.6 mg/dL Specimen Performing Laboratory Blood MAIN LAB [address] [place] [address] * COMPREHENSIVE METABOLIC PANEL (11/27/2017 4:35 AM) Component Value Ref Range Sodium 142 137 [...] questions. Specimen Performing Laboratory Blood MAIN LAB [address] [place] [address] * CBC AND DIFF (11/27/2017 4:35 AM) Component Value Ref Range White Blood Cells [...] K/UL Specimen Performing Laboratory Blood MAIN LAB [address] [place] [address] * PROTIME INR (PT) (11/27/2017 4:35 AM) Component Value Ref Range INR 1.0 0.8 - 1.2 Specimen Performing Laboratory Blood MAIN LAB [address] [place] [address] * POC GLUCOSE (11/27/2017 3:16 AM) Component Value Ref Range Glucose, POC 198 (H) 70 - 100 MG/DL Specimen Performing Laboratory [facility] [address] [place] [address] * POC GLUCOSE (11/26/2017 9:00 PM) Component Value Ref Range Glucose, POC 165 (H) 70 - 100 MG/DL Specimen Performing Laboratory [facility] [address] [place] [address] * POC GLUCOSE (11/26/2017 5:21 PM) Component Value Ref Range Glucose, POC 156 (H) 70 - 100 MG/DL Specimen Performing Laboratory [facility] [address] [place] [address] * ECG-SCAN (11/26/2017 4:50 PM) Narrative Ordered by an unspecified provider. * ECG-SCAN (11/26/2017 4:50 PM) Narrative Ordered by an unspecified provider. * POC GLUCOSE (11/26/2017 11:43 AM) Component Value Ref Range Glucose, POC 134 (H) 70 - 100 MG/DL Specimen Performing Laboratory [facility] [address] [place] [address] * POC GLUCOSE (11/26/2017 9:09 AM) Component Value Ref Range Glucose, POC 121 (H) 70 - 100 MG/DL Specimen Performing Laboratory [facility] [address] [place] [address] * POC GLUCOSE (11/26/2017 7:50 AM) Component Value Ref Range Glucose, POC 64 (L) 70 - 100 MG/DL Specimen Performing Laboratory [facility] [address] [place] [address] * COMPREHENSIVE METABOLIC PANEL (11/26/2017 5:11 AM) Component Value Ref Range Sodium 141 137 - 147 MMOL/L Potassium 3.1 (L) 3.5 - 5.1 MMOL/L Chloride 107 98 - 110 MMOL/L Glucose 96 70 - 100 MG/DL Blood Urea Nitrogen 2 (L) 7 - 25 MG/DL Creatinine 0.65 0.4 - 1.24 MG/DL Calcium 9.1 8.5 - 10.6 MG/DL Total Protein 5.6 (L) 6.0 - 8.0 G/DL Total Bilirubin 0.3 0.3 - 1.2 MG/DL Albumin 3.0 (L) 3.5 - 5.0 G/DL Alk Phosphatase 88 25 - 110 U/L AST (SGOT) 64 (H) 7 - 40 U/L CO2 27 21 - 30 MMOL/L ALT (SGPT) 396 (H) 7 - 56 U/L Anion Gap 7 3 - 12 eGFR Non >60 >60 [...] Specimen Performing Laboratory Blood MAIN LAB [address] [place] [address] * CBC AND DIFF (11/26/2017 5:11 AM) Component Value Ref Range White Blood Cells 9.3 4.5 - 11.0 K/UL RBC 3.56 (L) 4.4 - 5.5 M/UL Hemoglobin 10.5 (L) 13.5 - 16.5 GM/DL Hematocrit 31.8 (L) 40 - 50 % MCV 89.2 80 - 100 FL MCH 29.4 26 - 34 PG MCHC 33.0 32.0 - 36.0 G/DL RDW 13.6 11 - 15 % Platelet Count 220 150 - 400 K/UL MPV 8.0 7 - 11 FL Neutrophils 69 41 - 77 % Lymphocytes 20 (L) 24 - 44 % Monocytes 9 4 - 12 % Eosinophils 2 0 - 5 % Basophils 0 0 - 2 % Absolute Neutrophil Count 6.30 1.8 - 7.0 K/UL Absolute Lymph Count 1.90 1.0 - 4.8 K/UL Absolute Monocyte Count 0.90 (H) 0 - 0.80 K/UL Absolute Eosinophil Count 0.20 0 - 0.45 K/UL Absolute Basophil Count 0.00 0 - 0.20 K/UL Specimen Performing Laboratory Blood MAIN LAB [address] [place] [address] * MAGNESIUM (11/26/2017 5:11 AM) Component Value Ref Range Magnesium 1.7 1.6 - 2.6 mg/dL Specimen Performing Laboratory Blood [facility] MAIN LAB [address] [place] [address] * PHOSPHORUS (11/26/2017 5:11 AM) Component Value Ref Range Phosphorus 2.4 2.0 - 4.0 MG/DL Specimen Performing Laboratory Blood [facility] [address] [place] [address] * PROTIME INR (PT) (11/26/2017 5:11 AM) Component Value Ref Range INR 1.1 0.8 - 1.2 Specimen Performing Laboratory Blood [facility] [address] [place] [address] * IGG SUBCLASSES (11/26/2017 5:11 AM) Component Value Ref Range Total IgG 426 (L) Comment: Reference range: [id number] Unit: mg/dL [facility] IgG Subclasses #1 308 (L) Comment: Reference range: [id number] Unit: mg/dL [facility] IgG Subclasses #2 91 (L) MG/DL Comment: Reference range: [id number] [facility] IgG Subclasses #3 14.0 (L) Comment: Reference range: 18.7xq176.0 Unit: mg/dL [facility] IgG Subclasses #4 14.6 Comment: Reference range: 2.6po882.0 Unit: mg/dL [facility] Specimen Performing Laboratory Blood REFERENCE LAB * POC GLUCOSE (11/26/2017 2:55 AM) Component Value Ref Range Glucose, POC 107 (H) 70 - 100 MG/DL Specimen Performing Laboratory [facility] [address] [place] [address] * POC GLUCOSE (11/25/2017 8:57 PM) Component Value Ref Range Glucose, POC 242 (H) 70 - 100 MG/DL Specimen Performing Laboratory [facility] [address] [place] [address] * POC GLUCOSE (11/25/2017 5:05 PM) Component Value Ref Range Glucose, POC 337 (H) 70 - 100 MG/DL Specimen Performing Laboratory [facility] [address] [place] [address] * POC GLUCOSE (11/25/2017 5:01 PM) Component Value Ref Range Glucose, POC 357 (H) 70 - 100 MG/DL Specimen Performing Laboratory [facility] [address] [place] [address] * POC GLUCOSE (11/25/2017 12:16 PM) Component Value Ref Range Glucose, POC 171 (H) 70 - 100 MG/DL Specimen Performing Laboratory [facility] [address] [place] [address] * POC GLUCOSE (11/25/2017 7:50 AM) Component Value Ref Range Glucose, POC 99 70 - 100 MG/DL Specimen Performing Laboratory MAIN LAB [address] [place] [address] * COMPREHENSIVE METABOLIC PANEL (11/25/2017 3:40 AM) Component Value Ref Range Sodium 140 137 - 147 MMOL/L Potassium 3.5 3.5 - 5.1 MMOL/L Chloride 109 98 - 110 MMOL/L Glucose 143 (H) 70 - 100 MG/DL Blood Urea Nitrogen 3 (L) 7 - 25 MG/DL Creatinine 0.69 0.4 - 1.24 MG/DL Calcium 8.6 8.5 - 10.6 MG/DL Total Protein 5.1 (L) 6.0 - 8.0 G/DL Total Bilirubin 0.4 0.3 - 1.2 MG/DL Albumin 2.7 (L) 3.5 - 5.0 G/DL Alk Phosphatase 91 25 - 110 U/L AST (SGOT) 123 (H) 7 - 40 U/L CO2 21 21 - 30 MMOL/L ALT (SGPT) 503 (H) 7 - 56 U/L Anion Gap [...] Specimen Performing Laboratory Blood MAIN LAB [address] [place] [address] * CBC AND DIFF (11/25/2017 3:40 AM) Component Value Ref Range White Blood Cells 6.1 4.5 - 11.0 K/UL RBC 3.35 (L) 4.4 - 5.5 M/UL Hemoglobin 10.0 (L) 13.5 - 16.5 GM/DL Hematocrit 29.9 (L) 40 - 50 % MCV 89.2 80 - 100 FL MCH 29.8 26 - 34 PG MCHC 33.4 32.0 - 36.0 G/DL RDW 14.5 11 - 15 % Platelet Count 162 150 - 400 K/UL MPV 7.8 7 - 11 FL Neutrophils 62 41 - 77 % Lymphocytes 26 24 - 44 % Monocytes 9 4 - 12 % Eosinophils 3 0 - 5 % Basophils 0 0 - 2 % Absolute Neutrophil Count 3.70 1.8 - 7.0 K/UL Absolute Lymph Count 1.60 1.0 - 4.8 K/UL Absolute Monocyte Count 0.60 0 - 0.80 K/UL Absolute Eosinophil Count 0.20 0 - 0.45 K/UL Absolute Basophil Count 0.00 0 - 0.20 K/UL Specimen Performing Laboratory Blood MAIN LAB [address] [place] [address] * MAGNESIUM (11/25/2017 3:40 AM) Component Value Ref Range Magnesium 1.6 1.6 - 2.6 mg/dL Specimen Performing Laboratory Blood [facility] [address] [place], [place] [id number] * PHOSPHORUS (11/25/2017 3:40 AM) Component Value Ref Range Phosphorus 2.5 2.0 - 4.0 MG/DL Specimen Performing Laboratory Blood [facility] [address] [place], [place] [id number] * PROTIME INR (PT) (11/25/2017 3:40 AM) Component Value Ref Range INR 1.1 0.8 - 1.2 Specimen Performing Laboratory Blood [facility] [address] [place], [place] [id number] * BNP (B-TYPE NATRIURETIC PEPTI) (11/25/2017 3:40 AM) Component Value Ref Range B Type Natriuretic 458.0 (H) 0 - 100 PG/ML Peptide Specimen Performing Laboratory Blood [facility] [address] [place] [address] * POC GLUCOSE (11/25/2017 3:35 AM) Component Value Ref Range Glucose, POC 135 (H) 70 - 100 MG/DL Specimen Performing Laboratory [facility] [address] [place] [address] * POC GLUCOSE (11/24/2017 8:43 PM) Component Value Ref Range Glucose, POC 278 (H) 70 - 100 MG/DL Specimen Performing Laboratory [facility] [address] [place] [address] * POC GLUCOSE (11/24/2017 4:51 PM) Component Value Ref Range Glucose, POC 153 (H) 70 - 100 MG/DL Specimen Performing Laboratory [facility] [address] [place] [address] * POC GLUCOSE (11/24/2017 10:52 AM) Component Value Ref Range Glucose, POC 91 70 - 100 MG/DL Specimen Performing Laboratory MAIN LAB [address] [place] [address] * POC GLUCOSE (11/24/2017 8:43 AM) Component Value Ref Range Glucose, POC 83 70 - 100 MG/DL Specimen Performing Laboratory MAIN LAB [address] [place] [address] * COMPREHENSIVE METABOLIC PANEL (11/24/2017 3:40 AM) Component Value Ref Range Sodium 139 137 - 147 MMOL/L Potassium 3.7 3.5 - 5.1 MMOL/L Chloride 108 98 - 110 MMOL/L Glucose 166 (H) 70 - 100 MG/DL Blood Urea Nitrogen 3 (L) 7 - 25 MG/DL Creatinine 0.78 0.4 - 1.24 MG/DL Calcium 8.3 (L) 8.5 - 10.6 MG/DL Total Protein 4.9 (L) 6.0 - 8.0 G/DL Total Bilirubin 0.6 0.3 - 1.2 MG/DL Albumin 2.7 (L) 3.5 - 5.0 G/DL Alk Phosphatase 99 25 - 110 U/L AST (SGOT) 236 (H) 7 - 40 U/L CO2 21 21 - 30 MMOL/L ALT (SGPT) 702 (H) 7 - 56 U/L Anion Gap [...] Specimen Performing Laboratory Blood MAIN LAB [address] [place] [address] * CBC AND DIFF (11/24/2017 3:40 AM) Component Value Ref Range White Blood Cells 9.1 4.5 - 11.0 K/UL RBC 3.31 (L) 4.4 - 5.5 M/UL Hemoglobin 10.0 (L) 13.5 - 16.5 GM/DL Hematocrit 29.2 (L) 40 - 50 % MCV 88.2 80 - 100 FL MCH 30.2 26 - 34 PG MCHC 34.2 32.0 - 36.0 G/DL RDW 14.3 11 - 15 % Platelet Count 130 (L) 150 - 400 K/UL MPV 8.4 7 - 11 FL Neutrophils 82 (H) 41 - 77 % Lymphocytes 15 (L) 24 - 44 % Monocytes 1 (L) 4 - 12 % Eosinophils 2 0 - 5 % Basophils 0 0 - 2 % Absolute Neutrophil Count 7.50 (H) 1.8 - 7.0 K/UL Absolute Lymph Count 1.40 1.0 - 4.8 K/UL Absolute Monocyte Count 0.10 0 - 0.80 K/UL Absolute Eosinophil Count 0.10 0 - 0.45 K/UL Absolute Basophil Count 0.00 0 - 0.20 K/UL Specimen Performing Laboratory Blood MAIN LAB [address] [place] [address] * MAGNESIUM (11/24/2017 3:40 AM) Component Value Ref Range Magnesium 1.7 1.6 - 2.6 mg/dL Specimen Performing Laboratory Blood MAIN LAB [address] [place], [place] [id number] * PHOSPHORUS (11/24/2017 3:40 AM) Component Value Ref Range Phosphorus 1.9 (L) 2.0 - 4.0 MG/DL Specimen Performing Laboratory Blood [facility] [address] [place] [address] * ACETAMINOPHEN LEVEL (11/24/2017 3:40 AM) Component Value Ref Range Acetaminophen <10.0 <20.1 MCG/ML Specimen Performing Laboratory Blood [facility] [address] [place], [place] [id number] * PROTIME INR (PT) (11/24/2017 3:40 AM) Component Value Ref Range INR 1.2 0.8 - 1.2 Specimen Performing Laboratory Blood [facility] [address] [place] [address] * C DIFFICILE BY PCR (11/24/2017 1:35 AM) Component Value Ref Range Battery Name C DIFFICILE PCR Specimen Description FECES Special Requests NONE C. Difficile Toxin B PCR NEGATIVE-wait 7 days to repeat test Report Status FINAL 11/24/2017 Specimen Performing Laboratory Feces MAIN LAB [address] [place] [address] * POC GLUCOSE (11/23/2017 8:38 PM) Component Value Ref Range Glucose, POC 203 (H) 70 - 100 MG/DL Specimen Performing Laboratory [facility] [address] [place] [address] * POC GLUCOSE (11/23/2017 5:42 PM) Component Value Ref Range Glucose, POC 277 (H) 70 - 100 MG/DL Specimen Performing Laboratory [facility] [address] [place] [address] * URINE COLLECTION (11/23/2017 2:00 PM) Component Value Ref Range Collection Period, Urine 24.0 Volume, Urine 3,624 MLS Specimen Performing Laboratory [facility] [address] [place] [address] * COPPER-URINE 24 HR (11/23/2017 2:00 PM) Component Value Ref Range Copper, 24 HR 93 (H) Comment: Reference range: <=60 Unit: mcg/24 h [facility], [address] [place] [address] 139[address] Collection Period, Urine 24 Comment: Unit: h [facility], [address] [place] [address] 69068 Volume, Urine 3,624 Comment: Unit: mL ADDITIONAL INFORMATION This test was developed and its performance characteristics determined by [facility] in a manner consistent with CLIA requirements. This test has not been cleared or approved by the U.S. Food and Drug Administration. [facility], [address] [place] [address] 47870 Specimen Performing Laboratory Urine REFERENCE LAB * POC GLUCOSE (11/23/2017 12:48 PM) Component Value Ref Range Glucose, POC 183 (H) 70 - 100 MG/DL Specimen Performing Laboratory [facility] [address] [place] [address] * PHOSPHORUS (11/23/2017 11:02 AM) Component Value Ref Range Phosphorus 1.8 (L) 2.0 - 4.0 MG/DL Specimen Performing Laboratory Blood [facility] [address] [place] [address] * BASIC METABOLIC PANEL (11/23/2017 11:02 AM) Component Value Ref Range Sodium 138 137 [...] Pharmacist for questions. Specimen Performing Laboratory Blood [facility] [address] [place] [address] * POC GLUCOSE (11/23/2017 11:01 AM) Component Value Ref Range Glucose, POC 179 (H) 70 - 100 MG/DL Specimen Performing Laboratory [facility] [address] [place], [place] [id number] * POC GLUCOSE (11/23/2017 6:09 AM) Component Value Ref Range Glucose, POC 126 (H) 70 - 100 MG/DL Specimen Performing Laboratory [facility] [address] [place], [place] [id number] * POC GLUCOSE (11/23/2017 4:09 AM) Component Value Ref Range Glucose, POC 92 70 - 100 MG/DL Specimen Performing Laboratory [facility] [address] [place], [place] [id number] * LIPASE (11/23/2017 3:11 AM) Component Value Ref Range Lipase 269 (H) 11 - 82 U/L Specimen Performing Laboratory [facility] [address] [place], [place] [id number] * AMMONIA (11/23/2017 3:11 AM) Component Value Ref Range Ammonia 32 9 - 35 MCMOL/L Specimen Performing Laboratory Blood [facility] [address] [place], [place] [id number] * FACTOR 5 ASSAY (11/23/2017 3:11 AM) Component Value Ref Range Factor 5 164 (H) 50 - 150 % Specimen Performing Laboratory Blood [facility] [address] [place], [place] [id number] * MAGNESIUM (11/23/2017 3:11 AM) Component Value Ref Range Magnesium 1.7 1.6 - 2.6 mg/dL Specimen Performing Laboratory Blood MAIN LAB [address] [place] [address] * ACETAMINOPHEN LEVEL (11/23/2017 3:11 AM) Component Value Ref Range Acetaminophen <10.0 <20.1 MCG/ML Specimen Performing Laboratory Blood MAIN LAB [address] [place], [place] [id number] * PHOSPHORUS (11/23/2017 3:11 AM) Component Value Ref Range Phosphorus 2.0 2.0 - 4.0 MG/DL Specimen Performing Laboratory Blood MAIN LAB [address] [place], [place] [id number] * COMPREHENSIVE METABOLIC PANEL (11/23/2017 3:11 AM) Component Value Ref Range Sodium 141 137 - 147 MMOL/L Potassium 3.3 (L) 3.5 - 5.1 MMOL/L Chloride 114 (H) 98 - 110 MMOL/L Glucose 93 70 - 100 MG/DL Blood Urea Nitrogen 2 (L) 7 - 25 MG/DL Creatinine 0.71 0.4 - 1.24 MG/DL Calcium 8.3 (L) 8.5 - 10.6 MG/DL Total Protein 5.1 (L) 6.0 - 8.0 G/DL Total Bilirubin 0.7 0.3 - 1.2 MG/DL Albumin 2.9 (L) 3.5 - 5.0 G/DL Alk Phosphatase 104 25 - 110 U/L AST (SGOT) 708 (H) 7 - 40 U/L CO2 21 21 - 30 MMOL/L ALT (SGPT) 1,050 (H) 7 - 56 U/L Anion Gap 6 3 - 12 eGFR Non >60 >60 [...] questions. Specimen Performing Laboratory Blood MAIN LAB [address] [place] [address] * PROTIME INR (PT) (11/23/2017 3:11 AM) Component Value Ref Range INR 1.2 0.8 - 1.2 Specimen Performing Laboratory Blood MAIN LAB [address] [place], [place] [id number] * CBC AND DIFF (11/23/2017 3:11 AM) Component Value Ref Range White Blood Cells 11.2 (H) 4.5 - 11.0 K/UL RBC 3.55 (L) 4.4 - 5.5 M/UL Hemoglobin 10.8 (L) 13.5 - 16.5 GM/DL Hematocrit 31.2 (L) 40 - 50 % MCV 88.1 80 - 100 FL MCH 30.4 26 - 34 PG MCHC 34.5 32.0 - 36.0 G/DL RDW 14.3 11 - 15 % Platelet Count 131 (L) 150 - 400 K/UL MPV 8.6 7 - 11 FL Neutrophils 80 (H) 41 - 77 % Lymphocytes 15 (L) 24 - 44 % Monocytes 3 (L) 4 - 12 % Eosinophils 2 0 - 5 % Basophils 0 0 - 2 % Absolute Neutrophil Count 9.00 (H) 1.8 - 7.0 K/UL Absolute Lymph Count 1.70 1.0 - 4.8 K/UL Absolute Monocyte Count 0.30 0 - 0.80 K/UL Absolute Eosinophil Count 0.20 0 - 0.45 K/UL Absolute Basophil Count 0.00 0 - 0.20 K/UL Specimen Performing Laboratory Blood [facility] [address] [place], [place] [id number] * POC GLUCOSE (11/23/2017 3:10 AM) Component Value Ref Range Glucose, POC 89 70 - 100 MG/DL Specimen Performing Laboratory [facility] [address] [place] [address] * POC GLUCOSE (11/23/2017 1:51 AM) Component Value Ref Range Glucose, POC 96 70 - 100 MG/DL Specimen Performing Laboratory [facility] [address] [place] [address] * POC GLUCOSE (11/23/2017 1:08 AM) Component Value Ref Range Glucose, POC 97 70 - 100 MG/DL Specimen Performing Laboratory [facility] [address] [place] [address] * POC GLUCOSE (11/22/2017 11:58 PM) Component Value Ref Range Glucose, POC 113 (H) 70 - 100 MG/DL Specimen Performing Laboratory [facility] [address] [place] [address] * POC GLUCOSE (11/22/2017 11:00 PM) Component Value Ref Range Glucose, POC 121 (H) 70 - 100 MG/DL Specimen Performing Laboratory MAIN LAB [address] [place] [address] * POC GLUCOSE (11/22/2017 10:06 PM) Component Value Ref Range Glucose, POC 126 (H) 70 - 100 MG/DL Specimen Performing Laboratory MAIN LAB [address] [place] [address] * PHOSPHORUS (11/22/2017 9:13 PM) Component Value Ref Range Phosphorus 2.4 2.0 - 4.0 MG/DL Specimen Performing Laboratory Blood MAIN LAB [address] [place] [address] * BASIC METABOLIC PANEL (11/22/2017 9:13 PM) Component Value Ref Range Sodium 139 137 - 147 MMOL/L Potassium 3.8 3.5 - 5.1 MMOL/L Chloride 115 (H) 98 - 110 MMOL/L CO2 20 (L) 21 - 30 MMOL/L Anion Gap 4 3 - 12 Glucose 145 (H) 70 - 100 MG/DL Blood Urea Nitrogen 3 (L) 7 - 25 MG/DL Creatinine 0.81 0.4 - 1.24 MG/DL Calcium 8.1 (L) 8.5 - 10.6 MG/DL eGFR Non >60 [...] questions. Specimen Performing Laboratory Blood MAIN LAB [address] [place] [address] * POC GLUCOSE (11/22/2017 9:12 PM) Component Value Ref Range Glucose, POC 154 (H) 70 - 100 MG/DL Specimen Performing Laboratory MAIN LAB [address] [place] [address] * TROPONIN-I (11/22/2017 7:34 PM) Component Value Ref Range Troponin-I 0.26 (H) 0.0 - 0.05 NG/ML Specimen Performing Laboratory Blood MAIN LAB [address] [place] [address] * POC GLUCOSE (11/22/2017 6:50 PM) Component Value Ref Range Glucose, POC 124 (H) 70 - 100 MG/DL Specimen Performing Laboratory MAIN LAB [address] [place] [address] * POC GLUCOSE (11/22/2017 5:07 PM) Component Value Ref Range Glucose, POC 139 (H) 70 - 100 MG/DL Specimen Performing Laboratory MAIN LAB [address] [place] [address] * MAGNESIUM (11/22/2017 4:00 PM) Component Value Ref Range Magnesium 1.7 1.6 - 2.6 mg/dL Specimen Performing Laboratory Blood MAIN LAB [address] [place] [address] * PHOSPHORUS (11/22/2017 4:00 PM) Component Value Ref Range Phosphorus 1.6 (L) 2.0 - 4.0 MG/DL Specimen Performing Laboratory Blood MAIN LAB [address] [place] [address] * COMPREHENSIVE METABOLIC PANEL (11/22/2017 4:00 PM) Component Value Ref Range Sodium 139 137 - 147 MMOL/L Potassium 3.6 3.5 - 5.1 MMOL/L Chloride 113 (H) 98 - 110 MMOL/L Glucose 147 (H) 70 - 100 MG/DL Blood Urea Nitrogen 4 (L) 7 - 25 MG/DL Creatinine 0.81 0.4 - 1.24 MG/DL Calcium 8.1 (L) 8.5 - 10.6 MG/DL Total Protein 4.8 (L) 6.0 - 8.0 G/DL Total Bilirubin 0.6 0.3 - 1.2 MG/DL Albumin 2.8 (L) 3.5 - 5.0 G/DL Alk Phosphatase 107 25 - 110 U/L AST (SGOT) 1,081 (H) 7 - 40 U/L CO2 19 (L) 21 - 30 MMOL/L ALT (SGPT) 1,133 (H) 7 - 56 U/L Anion Gap 7 3 - 12 eGFR Non >60 >60 [...] Pharmacist for questions. Specimen Performing Laboratory Blood [facility] MAIN [facility] [address] [place] [address] * POC GLUCOSE (11/22/2017 3:11 PM) Component Value Ref Range Glucose, POC 141 (H) 70 - 100 MG/DL Specimen Performing Laboratory [facility] MAIN [facility] [address] [place] [address] * CT ABD/PELV W CONTRAST (11/22/2017 2:18 [...] Rivera M.D. on 11/22/2017 8:02 PM. * ACETAMINOPHEN LEVEL (11/22/2017 1:00 PM) Component Value Ref Range Acetaminophen <10.0 <20.1 MCG/ML Specimen Performing Laboratory Blood MAIN LAB [address] [place], [place] [id number] * TROPONIN-I (11/22/2017 1:00 PM) Component Value Ref Range Troponin-I 0.39 (H) 0.0 - 0.05 NG/ML Specimen Performing Laboratory Blood MAIN LAB [address] [place] [address] * POC GLUCOSE (11/22/2017 12:54 PM) Component Value Ref Range Glucose, POC 147 (H) 70 - 100 MG/DL Specimen Performing Laboratory MAIN LAB [address] [place] [address] * POC GLUCOSE (11/22/2017 11:04 AM) Component Value Ref Range Glucose, POC 160 (H) 70 - 100 MG/DL Specimen Performing Laboratory [facility] [address] [place], [place] [id number] * POC GLUCOSE (11/22/2017 10:12 AM) Component Value Ref Range Glucose, POC 167 (H) 70 - 100 MG/DL Specimen Performing Laboratory [facility] [address] [place], [place] [id number] * PHOSPHORUS (11/22/2017 10:12 AM) Component Value Ref Range Phosphorus 2.1 2.0 - 4.0 MG/DL Specimen Performing Laboratory Blood [facility] [address] [place] [address] * BASIC METABOLIC PANEL (11/22/2017 10:12 AM) Component Value Ref Range Sodium 139 137 - 147 MMOL/L Potassium 3.6 3.5 - 5.1 MMOL/L Chloride 115 (H) 98 - 110 MMOL/L CO2 17 (L) 21 - 30 MMOL/L Anion Gap 7 3 - 12 Glucose 187 (H) 70 - 100 MG/DL Blood Urea Nitrogen 5 (L) 7 - 25 MG/DL Creatinine 0.81 0.4 - 1.24 MG/DL Calcium 7.8 (L) 8.5 - 10.6 MG/DL eGFR Non >60 [...] Pharmacist for questions. Specimen Performing Laboratory Blood [facility] [address] [place], [place] [id number] * POC GLUCOSE (11/22/2017 8:59 AM) Component Value Ref Range Glucose, POC 175 (H) 70 - 100 MG/DL Specimen Performing Laboratory [address] [address] * POC GLUCOSE (11/22/2017 8:19 AM) Component Value Ref Range Glucose, POC 180 (H) 70 - 100 MG/DL Specimen Performing Laboratory [facility] [address] [place] [address] * POC GLUCOSE (11/22/2017 7:16 AM) Component Value Ref Range Glucose, POC 101 (H) 70 - 100 MG/DL Specimen Performing Laboratory [address] [address] * POC GLUCOSE (11/22/2017 6:58 AM) Component Value Ref Range Glucose, POC 96 70 - 100 MG/DL Specimen Performing Laboratory [address] [address] * POC GLUCOSE (11/22/2017 6:11 AM) Component Value Ref Range Glucose, POC 111 (H) 70 - 100 MG/DL Specimen Performing Laboratory [address] [address] * POC GLUCOSE (11/22/2017 5:07 AM) Component Value Ref Range Glucose, POC 134 (H) 70 - 100 MG/DL Specimen Performing Laboratory [address] [address] * AMMONIA (11/22/2017 3:05 AM) Component Value Ref Range Ammonia 47 (H) 9 - 35 MCMOL/L Specimen Performing Laboratory Blood [facility] [address] [place], [place] [id number] * FACTOR 5 ASSAY (11/22/2017 3:05 AM) Component Value Ref Range Factor 5 49 (L) 50 - 150 % Specimen Performing Laboratory Blood [facility] [address] [place] [address] * MAGNESIUM (11/22/2017 3:05 AM) Component Value Ref Range Magnesium 1.8 1.6 - 2.6 mg/dL Specimen Performing Laboratory Blood [place] [address] [place] [address] * ACETAMINOPHEN LEVEL (11/22/2017 3:05 AM) Component Value Ref Range Acetaminophen <10.0 <20.1 MCG/ML Specimen Performing Laboratory Blood MAIN LAB [address] [place] [address] * BLOOD GASES, ARTERIAL (11/22/2017 3:05 AM) Component Value Ref Range pH-Arterial 7.37 7.35 - 7.45 pCO2-Arterial 28 (L) 35 - 45 MMHG pO2-Arterial 69 (L) 80 - 100 MMHG Base Deficit-Arterial 7.9 MMOL/L O2 Sat-Arterial 94.3 (L) 95 - 99 % Btzhpgitlqi-SFY-Baf 18.0 (L) 21 - 28 MMOL/L Specimen Performing Laboratory Blood, arterial - Blood MAIN LAB [address] [place] [address] * PHOSPHORUS (11/22/2017 3:05 AM) Component Value Ref Range Phosphorus 2.2 2.0 - 4.0 MG/DL Specimen Performing Laboratory Blood MAIN LAB [address] [place] [address] * COMPREHENSIVE METABOLIC PANEL (11/22/2017 3:05 AM) Component Value Ref Range Sodium 140 137 - 147 MMOL/L Potassium 3.3 (L) 3.5 - 5.1 MMOL/L Chloride 119 (H) 98 - 110 MMOL/L Glucose 172 (H) 70 - 100 MG/DL Blood Urea Nitrogen 7 7 - 25 MG/DL Creatinine 0.76 0.4 - 1.24 MG/DL Calcium 7.9 (L) 8.5 - 10.6 MG/DL Total Protein 4.4 (L) 6.0 - 8.0 G/DL Total Bilirubin 0.3 0.3 - 1.2 MG/DL Albumin 2.6 (L) 3.5 - 5.0 G/DL Alk Phosphatase 103 25 - 110 U/L AST (SGOT) 1,219 (H) 7 - 40 U/L CO2 15 (L) 21 - 30 MMOL/L ALT (SGPT) 1,022 (H) 7 - 56 U/L Anion Gap 6 3 - 12 eGFR Non >60 >60 [...] questions. Specimen Performing Laboratory Blood MAIN LAB [address] [place], [place] [id number] * PROTIME INR (PT) (11/22/2017 3:05 AM) Component Value Ref Range INR 1.4 (H) 0.8 - 1.2 Specimen Performing Laboratory Blood MAIN LAB [address] [place], [place] [id number] * CBC AND DIFF (11/22/2017 3:05 AM) Component Value Ref Range White Blood Cells 20.1 (H) 4.5 - 11.0 K/UL RBC 3.83 (L) 4.4 - 5.5 M/UL Hemoglobin 11.5 (L) 13.5 - 16.5 GM/DL Hematocrit 33.8 (L) 40 - 50 % MCV 88.1 80 - 100 FL MCH 30.1 26 - 34 PG MCHC 34.2 32.0 - 36.0 G/DL RDW 14.6 11 - 15 % Platelet Count 159 150 - 400 K/UL MPV 8.6 7 - 11 FL Neutrophils 91 (H) 41 - 77 % Lymphocytes 8 (L) 24 - 44 % Monocytes 1 (L) 4 - 12 % Eosinophils 0 0 - 5 % Basophils 0 0 - 2 % Absolute Neutrophil Count 18.10 (H) 1.8 - 7.0 K/UL Absolute Lymph Count 1.60 1.0 - 4.8 K/UL Absolute Monocyte Count 0.30 0 - 0.80 K/UL Absolute Eosinophil Count 0.10 0 - 0.45 K/UL Absolute Basophil Count 0.00 0 - 0.20 K/UL Specimen Performing Laboratory Blood MAIN LAB [address] [place] [address] * LIPASE (11/22/2017 3:05 AM) Component Value Ref Range Lipase 908 (H) 11 - 82 U/L Specimen Performing Laboratory Blood MAIN LAB [address] [place] [address] * POC GLUCOSE (11/22/2017 3:04 AM) Component Value Ref Range Glucose, POC 155 (H) 70 - 100 MG/DL Specimen Performing Laboratory MAIN LAB [address] [place], [place] [id number] * POC GLUCOSE (11/22/2017 2:23 AM) Component Value Ref Range Glucose, POC 155 (H) 70 - 100 MG/DL Specimen Performing Laboratory MAIN LAB [address] [place], [place] [id number] * TROPONIN-I (11/22/2017 1:43 AM) Component Value Ref Range Troponin-I 1.18 (H) 0.0 - 0.05 NG/ML Specimen Performing Laboratory Blood MAIN LAB [address] [place], [place] [id number] * POC GLUCOSE (11/22/2017 1:12 AM) Component Value Ref Range Glucose, POC 186 (H) 70 - 100 MG/DL Specimen Performing Laboratory MAIN LAB [address] [place] [address] * POC GLUCOSE (11/22/2017 12:24 AM) Component Value Ref Range Glucose, POC 187 (H) 70 - 100 MG/DL Specimen Performing Laboratory MAIN LAB [address] [place] [address] * POC GLUCOSE (11/21/2017 11:13 PM) Component Value Ref Range Glucose, POC 177 (H) 70 - 100 MG/DL Specimen Performing Laboratory MAIN LAB [address] [place] [address] * BLOOD GASES, ARTERIAL (11/21/2017 10:05 PM) Component Value Ref Range pH-Arterial 7.35 7.35 - 7.45 pCO2-Arterial 26 (L) 35 - 45 MMHG pO2-Arterial 85 80 - 100 MMHG Base Deficit-Arterial 10.1 MMOL/L O2 Sat-Arterial 96.6 95 - 99 % Jnobvjevpug-VGU-Rvu 16.5 (L) 21 - 28 MMOL/L Specimen Performing Laboratory Blood, arterial - Blood MAIN LAB [address] [place], [place] [id number] * PHOSPHORUS (11/21/2017 10:05 PM) Component Value Ref Range Phosphorus 3.4 2.0 - 4.0 MG/DL Specimen Performing Laboratory Blood MAIN LAB [address] [place] [address] * BASIC METABOLIC PANEL (11/21/2017 10:05 PM) Component Value Ref Range Sodium 140 137 - 147 MMOL/L Potassium 3.6 3.5 - 5.1 MMOL/L Chloride 118 (H) 98 - 110 MMOL/L CO2 13 (L) 21 - 30 MMOL/L Anion Gap 9 3 - 12 Glucose 227 (H) 70 - 100 MG/DL Blood Urea Nitrogen 9 7 - 25 MG/DL Creatinine 0.83 0.4 - 1.24 MG/DL Calcium 7.9 (L) 8.5 - 10.6 MG/DL eGFR Non >60 [...] Pharmacist for questions. Specimen Performing Laboratory Blood [facility] [address] [place], [place] [id number] * TROPONIN-I (11/21/2017 10:05 PM) Component Value Ref Range Troponin-I 1.58 (H) 0.0 - 0.05 NG/ML Specimen Performing Laboratory Blood [facility] [address] [place], [place] [id number] * POC GLUCOSE (11/21/2017 10:03 PM) Component Value Ref Range Glucose, POC 195 (H) 70 - 100 MG/DL Specimen Performing Laboratory [facility] [address] [place] [address] * POC GLUCOSE (11/21/2017 8:07 PM) Component Value Ref Range Glucose, POC 170 (H) 70 - 100 MG/DL Specimen Performing Laboratory [facility] [address] [place] [address] * POC GLUCOSE (11/21/2017 7:00 PM) Component Value Ref Range Glucose, POC 106 (H) 70 - 100 MG/DL Specimen Performing Laboratory [facility] [address] [place] [address] * POC GLUCOSE (11/21/2017 6:09 PM) Component Value Ref Range Glucose, POC 106 (H) 70 - 100 MG/DL Specimen Performing Laboratory [facility] [address] [place] [address] * POC GLUCOSE (11/21/2017 5:11 PM) Component Value Ref Range Glucose, POC 103 (H) 70 - 100 MG/DL Specimen Performing Laboratory [facility] [address] [place] [address] * POC GLUCOSE (11/21/2017 4:19 PM) Component Value Ref Range Glucose, POC 120 (H) 70 - 100 MG/DL Specimen Performing Laboratory MAIN LAB [address] [place] [id number] * MAGNESIUM (11/21/2017 4:18 PM) Component Value Ref Range Magnesium 2.0 1.6 - 2.6 mg/dL Specimen Performing Laboratory Blood MAIN LAB [address] [place] [address] * BLOOD GASES, ARTERIAL (11/21/2017 4:18 PM) Component Value Ref Range pH-Arterial 7.30 (L) 7.35 - 7.45 pCO2-Arterial 32 (L) 35 - 45 MMHG pO2-Arterial 124 (H) 80 - 100 MMHG Base Deficit-Arterial 9.9 MMOL/L O2 Sat-Arterial 98.5 95 - 99 % Xhdsaasazdo-EJI-Lyz 16.7 (L) 21 - 28 MMOL/L Specimen Performing Laboratory Blood, arterial - Blood MAIN LAB [address] [place] [address] * PHOSPHORUS (11/21/2017 4:18 PM) Component Value Ref Range Phosphorus 1.7 (L) 2.0 - 4.0 MG/DL Specimen Performing Laboratory Blood MAIN LAB [address] [place] [address] * COMPREHENSIVE METABOLIC PANEL (11/21/2017 4:18 PM) Component Value Ref Range Sodium 141 137 - 147 MMOL/L Potassium 3.5 3.5 - 5.1 MMOL/L Chloride 121 (H) 98 - 110 MMOL/L Glucose 134 (H) 70 - 100 MG/DL Blood Urea Nitrogen 11 7 - 25 MG/DL Creatinine 0.78 0.4 - 1.24 MG/DL Calcium 7.7 (L) 8.5 - 10.6 MG/DL Total Protein 4.6 (L) 6.0 - 8.0 G/DL Total Bilirubin 0.2 (L) 0.3 - 1.2 MG/DL Albumin 2.8 (L) 3.5 - 5.0 G/DL Alk Phosphatase 102 25 - 110 U/L AST (SGOT) 633 (H) 7 - 40 U/L CO2 14 (L) 21 - 30 MMOL/L ALT (SGPT) 660 (H) 7 - 56 U/L Anion Gap 6 3 - 12 eGFR Non >60 >60 [...] Pharmacist for questions. Specimen Performing Laboratory Blood [facility] [address] [place] [address] * POC GLUCOSE (11/21/2017 3:10 PM) Component Value Ref Range Glucose, POC 160 (H) 70 - 100 MG/DL Specimen Performing Laboratory [facility] [address] [place], [place] [id number] * POC GLUCOSE (11/21/2017 2:16 PM) Component Value Ref Range Glucose, POC 133 (H) 70 - 100 MG/DL Specimen Performing Laboratory [facility] [address] [place] [address] * LACTIC ACID (BG - RAPID LACTATE) (11/21/2017 1:21 PM) Component Value Ref Range Lactic Acid,BG 1.1 0.5 - 2.0 MMOL/L Specimen Performing Laboratory [facility] [address] [place] [address] * O2 SATURATION, CENTRAL VENOUS (11/21/2017 1:21 PM) Component Value Ref Range O2 Sat, Central Venous 77.4 % Specimen Performing Laboratory Blood [facility] [address] [place] [address] * TROPONIN-I (11/21/2017 1:21 PM) Component Value Ref Range Troponin-I 0.33 (H) 0.0 - 0.05 NG/ML Specimen Performing Laboratory Blood [facility] [address] [place], [place] [id number] * POC GLUCOSE (11/21/2017 1:20 PM) Component Value Ref Range Glucose, POC 149 (H) 70 - 100 MG/DL Specimen Performing Laboratory [facility] [address] [place], [place] [id number] * POC GLUCOSE (11/21/2017 12:16 PM) Component Value Ref Range Glucose, POC 143 (H) 70 - 100 MG/DL Specimen Performing Laboratory [facility] [address] [place], [place] [id number] * POC GLUCOSE (11/21/2017 11:17 AM) Component Value Ref Range Glucose, POC 171 (H) 70 - 100 MG/DL Specimen Performing Laboratory MAIN LAB [address] [place] [address] * 2-D + DOPPLER ECHOCARDIOGRAM (11/21/2017 10:37 [...] 3.1 - 3.7 cm CV ECHO PV TRANSMISSION SPECIALIST ELICEO Mayo ([id number]) Bubbles and Definity LV mass 111.14 96 - 200 g RWT 0.44 <=0.42 TV rest pulmonary artery 31 mmHg pressure Right Heart Systolic TDI 0.086 m/s S' Cardiology Ultrasound Siemens [id number] Machine Left Ventricle Mass Index 58.49 50 [...] shunt. 6.No previous echocardiogram for comparison. * POC GLUCOSE (11/21/2017 10:09 AM) Component Value Ref Range Glucose, POC 206 (H) 70 - 100 MG/DL Specimen Performing Laboratory MAIN LAB [address] [place] [address] * PHOSPHORUS (11/21/2017 10:08 AM) Component Value Ref Range Phosphorus 2.1 2.0 - 4.0 MG/DL Specimen Performing Laboratory Blood MAIN LAB [address] [place] [address] * COMPREHENSIVE METABOLIC PANEL (11/21/2017 10:08 AM) Component Value Ref Range Sodium 142 137 - 147 MMOL/L Potassium 4.9 3.5 - 5.1 MMOL/L Chloride 121 (H) 98 - 110 MMOL/L Glucose 242 (H) 70 - 100 MG/DL Blood Urea Nitrogen 12 7 - 25 MG/DL Creatinine 0.79 0.4 - 1.24 MG/DL Calcium 7.4 (L) 8.5 - 10.6 MG/DL Total Protein 4.6 (L) 6.0 - 8.0 G/DL Total Bilirubin 0.2 (L) 0.3 - 1.2 MG/DL Albumin 2.8 (L) 3.5 - 5.0 G/DL Alk Phosphatase 101 25 - 110 U/L AST (SGOT) 634 (H) 7 - 40 U/L CO2 12 (L) 21 - 30 MMOL/L ALT (SGPT) 615 (H) 7 - 56 U/L Anion Gap 9 3 - 12 eGFR Non >60 >60 [...] Specimen Performing Laboratory Blood MAIN LAB [address] [place] [address] * MAGNESIUM (11/21/2017 10:08 AM) Component Value Ref Range Magnesium 2.1 1.6 - 2.6 mg/dL Specimen Performing Laboratory Blood MAIN LAB [address] [place] [address] * POC GLUCOSE (11/21/2017 9:06 AM) Component Value Ref Range Glucose, POC 192 (H) 70 - 100 MG/DL Specimen Performing Laboratory MAIN LAB [address] [place] [address] * BLOOD GASES, ARTERIAL (11/21/2017 8:35 AM) Component Value Ref Range pH-Arterial 7.31 (L) 7.35 - 7.45 pCO2-Arterial 26 (L) 35 - 45 MMHG pO2-Arterial 164 (H) 80 - 100 MMHG Base Deficit-Arterial 11.6 MMOL/L O2 Sat-Arterial 99.0 95 - 99 % Crtvfdhwzev-PRL-Lyi 15.4 (L) 21 - 28 MMOL/L Specimen Performing Laboratory Blood, arterial - Blood [facility] MAIN [facility] [address] [place] [address] * GRAM STAIN (11/21/2017 8:24 AM) Component Value Ref Range Battery Name GRAM STAIN Specimen Description TRACHEAL ASPIRATE Special Requests NONE Gram Stain GREATER THAN 25/LPF NEUTROPHILS LESS THAN 10/LPF SQUAMOUS EPITHELIAL CELLS MANY GRAM POSITIVE COCCI RESEMBLING STREPTOCOCCI FEW GRAM POSITIVE COCCI RESEMBLING STAPHYLOCOCCI Report Status FINAL 11/21/2017 Specimen Performing Laboratory Tracheal Aspirate MAIN LAB [address] [place] [address] * CULTURE-RESP,LOWER W/SENSITIVITY (11/21/2017 8:24 AM) Component [...] Performing Laboratory Tracheal Aspirate MAIN LAB [address] [place] [address] Organism Antibiotic Method Susceptibility Heavy growth Penicillin [...] AM Performed by: MERCEDES FLORES Authorized by: COURTNEY SAINZ Consent: The procedure was performed in an emergent situation. Patient identity confirmed: verbally with patient, arm band and hospital-assigned identification number Time out: Immediately prior to procedure a "time out" was called to verify the correct patient, procedure, equipment, aviation support equipment repairer and site/side marked as required. Preparation: Patient [...] (H) <0.10 NG/ML Specimen Performing Laboratory Blood MAIN LAB [address] [place], [place] [id number] * TROPONIN-I (11/21/2017 8:00 AM) Component Value Ref Range Troponin-I 0.21 (H) 0.0 - 0.05 NG/ML Specimen Performing Laboratory Blood MAIN LAB [address] [place], [place] [id number] * POC GLUCOSE (11/21/2017 7:47 AM) Component Value Ref Range Glucose, POC 122 (H) 70 - 100 MG/DL Specimen Performing Laboratory MAIN LAB [address] [place] [address] * POC GLUCOSE (11/21/2017 7:01 AM) Component Value Ref Range Glucose, POC 100 70 - 100 MG/DL Specimen Performing Laboratory MAIN LAB [address] [place] [address] * POC GLUCOSE (11/21/2017 6:47 AM) Component Value Ref Range Glucose, POC 97 70 - 100 MG/DL Specimen Performing Laboratory [facility] [address] [place] [address] * PHOSPHORUS (11/21/2017 6:45 AM) Component Value Ref Range Phosphorus <1.0 (LL) 2.0 - 4.0 MG/DL Comment: Critical Value PHOS: Called To: MODESTA oFrtune at: 07:28:55 by: CARMELA Read back by: MODESTA Fortune Specimen Performing Laboratory Blood MAIN LAB [address] [place] [id number] * COMPREHENSIVE METABOLIC PANEL (11/21/2017 6:45 AM) Component Value Ref Range Sodium 143 137 - 147 MMOL/L Potassium 2.8 (L) 3.5 - 5.1 MMOL/L Chloride 119 (H) 98 - 110 MMOL/L Glucose 100 70 - 100 MG/DL Blood Urea Nitrogen 14 7 - 25 MG/DL Creatinine 0.85 0.4 - 1.24 MG/DL Calcium 7.5 (L) 8.5 - 10.6 MG/DL Total Protein 4.5 (L) 6.0 - 8.0 G/DL Total Bilirubin 0.2 (L) 0.3 - 1.2 MG/DL Albumin 2.8 (L) 3.5 - 5.0 G/DL Alk Phosphatase 93 25 - 110 U/L AST (SGOT) 682 (H) 7 - 40 U/L CO2 15 (L) 21 - 30 MMOL/L ALT (SGPT) 690 (H) 7 - 56 U/L Anion Gap 9 3 - 12 eGFR Non >60 >60 [...] Pharmacist for questions. Specimen Performing Laboratory Blood [facility] [address] [place] [address] * MAGNESIUM (11/21/2017 6:45 AM) Component Value Ref Range Magnesium 2.3 1.6 - 2.6 mg/dL Specimen Performing Laboratory [facility] [address] [place] [address] * CT HEAD WO CONTRAST (11/21/2017 6:16 [...] Valentino M.D. on 11/21/2017 6:16 AM. * POC GLUCOSE (11/21/2017 5:51 AM) Component Value Ref Range Glucose, POC 127 (H) 70 - 100 MG/DL Specimen Performing Laboratory [facility] [address] [place] [address] * POC GLUCOSE (11/21/2017 4:56 AM) Component Value Ref Range Glucose, POC 153 (H) 70 - 100 MG/DL Specimen Performing Laboratory [facility] [address] [place] [address] * US ABDOMEN COMPLETE (11/21/2017 4:00 AM) [...] measures 10.9 cm.No hydronephrosis.. Peritoneal Space: A Torres catheter is in place within the nondistended [...] 10.9 cm. No hydronephrosis.. Peritoneal Space: A Torres catheter is in place within the nondistended [...] M.D. on 11/21/2017 8:06 AM. * US DOPPLER ABD PELV RETROPER [...] measures 10.9 cm.No hydronephrosis.. Peritoneal Space: A Torres catheter is in place within the nondistended [...] 10.9 cm. No hydronephrosis.. Peritoneal Space: A Torres catheter is in place within the nondistended [...] Kwong M.D. on 11/21/2017 8:06 AM. * POC GLUCOSE (11/21/2017 3:44 AM) Component Value Ref Range Glucose, POC 151 (H) 70 - 100 MG/DL Specimen Performing Laboratory [facility] [address] [place] [address] * CULTURE-BLOOD W/SENSITIVITY (11/21/2017 3:20 AM) Component Value Ref Range Battery Name BLOOD CULTURE Specimen Description BLOOD NO SITE INDICATED Special Requests NONE Culture NO GROWTH 5 DAYS Report Status FINAL 11/27/2017 Specimen Performing Laboratory [facility] [address] [place] [address] * CULTURE-BLOOD W/SENSITIVITY (11/21/2017 3:10 AM) Component Value Ref Range Battery Name BLOOD CULTURE Specimen Description BLOOD LEFT RADIAL Special Requests NONE Culture NO GROWTH 5 DAYS Report Status FINAL 11/27/2017 Specimen Performing Laboratory [facility] [address] [place] [address] * BLOOD GASES, ARTERIAL (11/21/2017 3:10 AM) Component Value Ref Range pH-Arterial 7.34 (L) 7.35 - 7.45 pCO2-Arterial 30 (L) 35 - 45 MMHG pO2-Arterial 159 (H) 80 - 100 MMHG Base Deficit-Arterial 8.4 MMOL/L O2 Sat-Arterial 99.2 (H) 95 - 99 % Lhvjcwymsfu-FBF-Dyl 17.8 (L) 21 - 28 MMOL/L Specimen Performing Laboratory Blood, arterial - [facility] [address] [place] [address] * CHEST SINGLE VIEW (11/21/2017 2:13 AM) [...] the diaphragm and tip not visualized in [id number]. Endotracheal tube projects at the level of [...] the diaphragm and tip not visualized in [id number]. Endotracheal tube projects at the level of [...] Horvath M.D. on 11/21/2017 8:49 AM. * TEG WITH KAOLIN (11/21/2017 2:00 AM) Component Value Ref Range MA Kaolin 66.1 50.0 - 70.0 MM R Kaolin 4.6 3.0 - 9.0 MIN RK Kaolin 5.8 4.0 - 12.0 MIN K Kaolin 1.2 1.0 - 3.0 MIN Angle Kaolin 73.6 55 - 75 DEG Lysis30 17.5 (H) 0.0 - 8.0 % Specimen Performing Laboratory [facility] * UA REFLEX CULTURE LABEL (11/21/2017 2:00 AM) Component Value Ref Range UA Reflex Culture LAB LABEL Specimen Performing Laboratory Urine [facility] [address] [place] [address] * URINALYSIS, MICROSCOPIC (11/21/2017 2:00 AM) Component Value Ref Range WBCs,UA 2-5 0 - 2 /HPF RBCs,UA 0-2 0 - 3 /HPF Amorphous Sedimate,UA TRACE Bacteria,UA FEW (A) NEG-NEG Specimen Performing Laboratory Urine [facility] [address] [place] [address] * URINALYSIS DIPSTICK (11/21/2017 2:00 AM) Component Value Ref Range Color,UA YELLOW Turbidity,UA CLEAR CLEAR-CLEAR Specific Hamilton-Urine 1.040 (H) 1.003 - 1.035 pH,UA 5.0 5.0 - 8.0 Protein,UA 1+ (A) NEG-NEG Glucose,UA 1+ (A) NEG-NEG Ketones,UA 1+ (A) NEG-NEG Bilirubin,UA POS (A) NEG-NEG Blood,UA NEG NEG-NEG Urobilinogen,UA NORMAL NORM-NORMAL Nitrite,UA NEG NEG-NEG Leukocytes,UA NEG NEG-NEG Specimen Performing Laboratory Urine [address] [address] * PHENCYCLIDINES-URINE RANDOM (11/21/2017 2:00 AM) Component Value Ref Range Phencyclidine (PCP) NEG NEG-NEG Comment: RESULTS WERE OBTAINED BY IMMUNOASSAY AND ARE PRESUMPTIVE ONLY. POSITIVE INDICATES THE PRESENCE OF SUBSTANCE WITH CHARACTERISTICS SIMILAR TO DRUG-DRUG CLASS OR METABOLITE IN CONC. EQUAL TO OR EXCEEDING VALUES LISTED. PHENCYCLIDINE (PCP)25 NG/ML Specimen Performing Laboratory Urine [address] [address] * OPIATES-URINE RANDOM (11/21/2017 2:00 AM) Component Value Ref Range Opiates-Urine NEG NEG-NEG Comment: RESULTS WERE OBTAINED BY IMMUNOASSAY AND ARE PRESUMPTIVE ONLY. POSITIVE INDICATES THE PRESENCE OF SUBSTANCE WITH CHARACTERISTICS SIMILAR TO DRUG-DRUG CLASS OR METABOLITE IN CONC. EQUAL TO OR EXCEEDING VALUES LISTED. [id number] 0 NG/ML Specimen Performing Laboratory Urine [address] [address] * COCAINE-URINE RANDOM (11/21/2017 2:00 AM) Component Value Ref Range Cocaine-Urine NEG NEG-NEG Comment: RESULTS WERE OBTAINED BY IMMUNOASSAY AND ARE PRESUMPTIVE ONLY. POSITIVE INDICATES THE PRESENCE OF SUBSTANCE WITH CHARACTERISTICS SIMILAR TO DRUG-DRUG CLASS OR METABOLITE IN CONC. EQUAL TO OR EXCEEDING VALUES LISTED. COCAINE 300 NG/ML Specimen Performing Laboratory Urine [address] [address] * CANNABINOIDS-URINE RANDOM (11/21/2017 2:00 AM) Component Value Ref Range THC NEG NEG-NEG Comment: RESULTS WERE OBTAINED BY IMMUNOASSAY AND ARE PRESUMPTIVE ONLY. POSITIVE INDICATES THE PRESENCE OF SUBSTANCE WITH CHARACTERISTICS SIMILAR TO DRUG-DRUG CLASS OR METABOLITE IN CONC. EQUAL TO OR EXCEEDING VALUES LISTED. [id number] NG/ML Specimen Performing Laboratory Urine [facility] [address] [place] [address] * BENZODIAZEPINES-URINE RANDOM (11/21/2017 2:00 AM) Component Value Ref Range Benzodiazepines POS (A) NEG-NEG Comment: RESULTS WERE OBTAINED BY IMMUNOASSAY AND ARE PRESUMPTIVE ONLY. POSITIVE INDICATES THE PRESENCE OF SUBSTANCE WITH CHARACTERISTICS SIMILAR TO DRUG-DRUG CLASS OR METABOLITE IN CONC. EQUAL TO OR EXCEEDING VALUES LISTED. BENZODIAZEPINES 200 NG/ML Specimen Performing Laboratory Urine [facility] [address] [place] [address] * BARBITURATES-URINE RANDOM (11/21/2017 2:00 AM) Component Value Ref Range Barbiturates,Urine NEG NEG-NEG Comment: RESULTS WERE OBTAINED BY IMMUNOASSAY AND ARE PRESUMPTIVE ONLY. POSITIVE INDICATES THE PRESENCE OF SUBSTANCE WITH CHARACTERISTICS SIMILAR TO DRUG-DRUG CLASS OR METABOLITE IN CONC. EQUAL TO OR EXCEEDING VALUES LISTED. [id number] NG/ML Specimen Performing Laboratory Urine [facility] [address] [place] [address] * AMPHETAMINES-URINE RANDOM (11/21/2017 2:00 AM) Component Value Ref Range Amphetamines NEG NEG-NEG Comment: RESULTS WERE OBTAINED BY IMMUNOASSAY AND ARE PRESUMPTIVE ONLY. POSITIVE INDICATES THE PRESENCE OF SUBSTANCE WITH CHARACTERISTICS SIMILAR TO DRUG-DRUG CLASS OR METABOLITE IN CONC. EQUAL TO OR EXCEEDING VALUES LISTED. AMPHETAMINES 1000 NG/ML Specimen Performing Laboratory Urine [facility] [address] [place] [address] * OSMOLALITY (11/21/2017 1:55 AM) Component Value Ref Range Osmolality 301 280 - 307 MOSMOL/KG Specimen Performing Laboratory [facility] [address] [place] [address] * BETA HYDROXYBUTYRATE (KETONES) (11/21/2017 1:55 AM) Component Value Ref Range Beta Hydroxybutyrate 0.5 (H) <0.3 MMOL/L Comment: Beta hydroxybutyrate (BOHB) is the most abundant ketone (78%), followed by acetoacetate (20%) and acetone (2%).Measurement BOHB is recommended to assess ketones in DKA. Expected BOHB Results for DKA: Initial presentation high/increasing During treatment decreasing Resolved decreasing/normal Specimen Performing Laboratory [facility] [address] [place] [address] * POC GLUCOSE (11/21/2017 1:55 AM) Component Value Ref Range Glucose, POC 329 (H) 70 - 100 MG/DL Specimen Performing Laboratory [facility] [address] [place] [address] * ALPHA 1 ANTITRYPSIN PHENOTYPE (11/21/2017 1:55 AM) Component Value Ref Range Alpha 1 Anti-Trypsin 92 (L) Comment: Reference range: [id number] Unit: mg/dL [facility] Alpha 1 Antitrypsin M Phenotype Unit: bands An unidentified allele is also noted. [facility] Specimen Performing Laboratory [facility] * PHOSPHORUS (11/21/2017 1:55 AM) Component Value Ref Range Phosphorus <1.0 (LL) 2.0 - 4.0 MG/DL Comment: CRITICAL VALUE CALLED TO AND READ BACK BY/TIME/NAKUL Cote/Joellen/RAYMON Specimen Performing Laboratory [facility] [address] [place] [address] * COMPREHENSIVE METABOLIC PANEL (11/21/2017 1:55 AM) Component Value Ref Range Sodium 143 137 - [...] questions. Specimen Performing Laboratory [facility] [address] [place] [address] * FACTOR 5 ASSAY (11/21/2017 1:55 AM) Component Value Ref Range Factor 5 58 50 - 150 % Specimen Performing Laboratory Blood [facility] [address] [place] [address] * FIBRINOGEN (11/21/2017 1:55 AM) Component Value Ref Range Fibrinogen 222 200 - 400 MG/DL Specimen Performing Laboratory Blood [facility] [address] [place] [address] * AMMONIA (11/21/2017 1:55 AM) Component Value Ref Range Ammonia 51 (H) 9 - 35 MCMOL/L Specimen Performing Laboratory Blood [facility] [address] [place], [place] [id number] * ABO/RH(D) (11/21/2017 1:55 AM) Component Value Ref Range ABO/RH(D) A POS Specimen Performing Laboratory Blood [facility] [address] [place] [address] * ANTI-SMOOTH MUSCLE AB (11/21/2017 1:55 AM) Component Value Ref Range Anti-Smooth Muscle Screen <20 <20 TITER Specimen Performing Laboratory Blood [address] [address] * ANTI-NUCLEAR ANTIBODY(DANIKA) (11/21/2017 1:55 AM) Component Value Ref Range DANIKA Screen <80 <80 TITER Specimen Performing Laboratory Blood [facility] [address] [place] [address] * ANTI-MITOCHONDRIAL ANTIBODY (11/21/2017 1:55 AM) Component Value Ref Range Anti-Mitochondrial Screen <20 <20 TITER Specimen Performing Laboratory Blood [facility] [address] [place] [address] * VARICELLA ZOSTER AB IGG (11/21/2017 1:55 AM) Component Value Ref Range Varcella Zoster IgG POS Specimen Performing Laboratory Blood [facility] [address] [place] [address] * NADEEM PORTER PANEL(EBV) (11/21/2017 1:55 AM) Component Value Ref Range EBV Capsid IgG POS EBV Nuclear Ag,Ab POS EBV Early Ag,Ab NEG EBV Capsid IgM NEG NEG-NEG Specimen Performing Laboratory [facility] [address] [place], [place] [id number] * HIV-1/2 ANTIGEN/ANTIBODY SCREEN (11/21/2017 1:55 AM) Component Value Ref Range HIV 1 and 2 AG AB Screen NEG NEG-NEG Specimen Performing Laboratory [facility] [address] [place] [address] * CMV AB IGG (11/21/2017 1:55 AM) Component Value Ref Range CMV, IgG POS Specimen Performing Laboratory [facility] [address] [place], [place] [id number] * CMV AB IGM (11/21/2017 1:55 AM) Component Value Ref Range CMV, IgM NEG NEG-NEG Specimen Performing Laboratory [facility] [address] [place], [place] [id number] * HSV I/II GLYCOPROTEIN G AB (11/21/2017 1:55 AM) Component Value Ref Range HSV Type 1 IgG NEG NEG-NEG HSV Type 2 IgG NEG NEG-NEG Specimen Performing Laboratory [facility] [address] [place], [place] [id number] * HEPATITIS C VIRAL LOAD PCR QUANT (11/21/2017 1:55 AM) Component Value Ref Range Hepatitis C PCR HCV RNA Not Detected, <12 IU/mL <12 IU/ML Quantitative Comment: The test method detects HCV viral load using the Rosario RealTime assay. Please correlate results with the clinical status of the patient. Log 10 HCV <1.08 <1.08 IU/mL Specimen Performing Laboratory [facility] [address] [place], [place] [id number] * HEPATITIS C AB (11/21/2017 1:55 AM) Component Value Ref Range Anti HCV NEG NEG-NEG Specimen Performing Laboratory [facility] [address] [place], [place] [id number] * HEPATITIS B CORE IGM AB (11/21/2017 1:55 AM) Component Value Ref Range Anti HBc IgM NEG NEG-NEG Specimen Performing Laboratory [facility] [address] [place], [place] [id number] * HEPATITIS B SURFACE AG (11/21/2017 1:55 AM) Component Value Ref Range HBsAg NEG NEG-NEG Specimen Performing Laboratory Blood [facility] [address] [place] [address] * HEPATITIS A IGG (11/21/2017 1:55 AM) Component Value Ref Range Hepatitis A IGG NEG Note: Test type and methodology has changed.The [facility] lab has discontinued the test for Total Hep A Immunoglobulin.This test has been replaced with more specific testing.The tests for Hep A IgG and Hep A IgM are both now available and can be ordered. Specimen Performing Laboratory Blood [facility] [address] [place] [address] * TOTAL THYROXINE T4 (11/21/2017 1:55 AM) Component Value Ref Range T4 (Total) 5.3 (L) 6.1 - 12.3 MCG/DL Specimen Performing Laboratory Blood [facility] [address] [place] [address] * IRON + BINDING CAPACITY + %SAT+ FERRITIN (11/21/2017 1:55 AM) Component Value Ref Range Iron 64 50 - 185 MCG/DL Iron Binding-TIBC 289 270 - 380 MCG/DL % Saturation 22 (L) 28 - 42 % Ferritin 404 (H) 30 - 300 NG/ML Specimen Performing Laboratory Blood [address] [address] * CERULOPLASMIN (11/21/2017 1:55 AM) Component Value Ref Range Ceruloplasmin 15.6 (L) 20.0 - 60.0 mg/dL Specimen Performing Laboratory Blood [facility] [address] [place] [address] * ALCOHOL LEVEL (11/21/2017 1:55 AM) Component Value Ref Range Alcohol <10 MG/DL Specimen Performing Laboratory Blood [facility] [address] [place] [address] * ALPHA FETO PROTEIN (AFP) (11/21/2017 1:55 AM) Component Value Ref Range Alpha Feto Protein 4.0 0.0 - 15.0 NG/ML Specimen Performing Laboratory Blood [facility] [address] [place] [address] * LDH-LACTATE DEHYDROGENASE (11/21/2017 1:55 AM) Component Value Ref Range Lactate Dehydrogenase 830 (H) 100 - 210 U/L Specimen Performing Laboratory Blood [facility] [address] [place] [address] * GGTP (11/21/2017 1:55 AM) Component Value Ref Range GGTP 40 9 - 64 U/L Specimen Performing Laboratory Blood [facility] [address] [place] [address] * MAGNESIUM (11/21/2017 1:55 AM) Component Value Ref Range Magnesium 1.9 1.6 - 2.6 mg/dL Specimen Performing Laboratory Blood [facility] [address] [place] [address] * LIPASE (11/21/2017 1:55 AM) Component Value Ref Range Lipase 935 (H) 11 - 82 U/L Specimen Performing Laboratory Blood [facility] [address] [place] [address] * AMYLASE (11/21/2017 1:55 AM) Component Value Ref Range Amylase 588 (H) 24 - 100 U/L Specimen Performing Laboratory Blood [facility] [address] [place], [place] [id number] * LIPID PROFILE (11/21/2017 1:55 AM) Component Value Ref Range Cholesterol 137 <200 MG/DL Triglycerides 117 <150 MG/DL HDL 23 (L) >40 MG/DL LDL 89 <100 MG/DL VLDL 23 MG/DL Non HDL Cholesterol 114 MG/DL Comment: Calculated non-HDL Cholesterol (non-HDL-C) indirectly measures LDL-C, Lp(a), IDL-C, and VLDL-C.It is a surrogate marker for Apoprotein B.Goal should be less than 130 mg/dL. Specimen Performing Laboratory Blood [facility] [address] [place] [address] * PTT (APTT) (11/21/2017 1:55 AM) Component Value Ref Range APTT 22.6 21.0 - 39.0 SEC Specimen Performing Laboratory Blood [facility] [address] [place] [address] * PROTIME INR (PT) (11/21/2017 1:55 AM) Component Value Ref Range INR 1.2 0.8 - 1.2 Specimen Performing Laboratory Blood [facility] [address] [place], [place] [id number] * CBC AND DIFF (11/21/2017 1:55 AM) Component Value Ref Range White Blood Cells 24.0 [...] K/UL Specimen Performing Laboratory [facility] [address] [place] [address] * HEMOGLOBIN A1C (11/21/2017 1:55 AM) Component Value Ref Range Hemoglobin A1C 10.1 (H) 4.0 - 6.0 % Comment: The ADA recommends that most patients with type 1 and type 2 diabetes maintain an A1c level <7%. Specimen Performing Laboratory [facility] [address] [place] [address] * TSH WITH FREE T4 REFLEX (11/21/2017 1:55 AM) Component Value Ref Range TSH 1.070 0.35 - 5.00 MCU/ML Specimen Performing Laboratory [facility] [address] [place] [address] * LACTIC ACID (BG - RAPID LACTATE) (11/21/2017 1:55 AM) Component Value Ref Range Lactic Acid,BG 2.9 (H) 0.5 - 2.0 MMOL/L Specimen Performing Laboratory [facility] [address] [place] [address] * ACETAMINOPHEN LEVEL (11/21/2017 1:55 AM) Component Value Ref Range Acetaminophen 36.0 (H) <20.1 MCG/ML Specimen Performing Laboratory [facility] [address] [place] [address] in this encounter Visit Diagnoses Diagnosis Other acute pancreatitis without infection or necrosis - Primary Acute encephalopathy Encephalopathy, unspecified Acute liver disease Unspecified disorder of liver Diabetic ketoacidosis with coma associated with type 1 diabetes mellitus (HCC) Hypokalemia Hypopotassemia Hypophosphatemia Disorders of phosphorus metabolism Metabolic acidosis, increased anion gap Acidosis Shock circulatory (HCC) Shock, unspecified Acetaminophen overdose of undetermined intent, initial encounter Schizoaffective disorder, bipolar type (HCC) Schizoaffective disorder, unspecified condition Undifferentiated schizophrenia (HCC) Unspecified schizophrenia, unspecified condition Intentional acetaminophen overdose, subsequent encounter Bipolar affective disorder, currently depressed, mild (HCC) Bipolar I disorder, most recent episode (or current) depressed, mild Type 1 diabetes mellitus with complication (HCC) Type I (juvenile type) diabetes mellitus with unspecified complication, not stated as uncontrolled Diabetic ketoacidosis associated with type 1 diabetes mellitus (HCC) Tylenol overdose Poisoning by aromatic analgesics, not elsewhere classified Schizoaffective disorder, depressive type (HCC) Schizoaffective disorder, unspecified condition 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) Acute combined systolic and diastolic heart failure Shock (HCC) Shock, unspecified On mechanically assisted ventilation (HCC) Liver injury Unspecified injury to liver without mention of open wound into cavity NORMA (acute kidney injury) ([facility]) Acute kidney failure, unspecified Streptococcal pneumonia ([facility]) Pneumonia due to unspecified Streptococcus Admitting Diagnoses Diagnosis tylenol overdose DKA Tylenol overdose Administered Medications Medication Order MAR Action Action Date Dose Rate Site acetylcysteine (ACETADOTE) 10.606 g in 11/21/2017 10.606 g 253 mL/hr sodium chloride 0.45% (1/2NS) 253.03 mL Bag 02:21 CDT IVPB 10.606 g (rounded from 10.605 g=150 mg/kg 70.7 kg), Intravenous, 253.03 mL, Administer over 1 Hours, ONCE, 1 dose, Fri11/21/17 at 0000, Acetylcysteine Bolus acetylcysteine (ACETADOTE) 3.536 g in 11/21/2017 3.536 g 129 mL/hr sodium chloride 0.45% (1/2NS) IVPB Bag 03:27 CDT 3.536 g (rounded from 3.535 g=50 mg/kg 70.7 kg), Intravenous, 517.68 mL, Administer over 4 Hours, ONCE, 1 dose, Fri11/21/17 at 0100, Acetylcysteine 2nd Dose acetylcysteine (ACETADOTE) 4 g in sodium Given - New 11/23/2017 6.25 110 mL/hr chloride 0.45% (1/2NS) 1,000 mL IVPB Bag 17:51 CDT mg/kg/hr 6.25 mg/kg/hr 70.7 kg (110.4688 mL/hr, rounded to 110 mL/hr), Intravenous, 1,000 mL, at 110 mL/hr, CONTINUOUS, Starting Fri11/21/17 at 0500, Until Fri11/24/17 at 1317, -- Acetylcysteine 3rd/Continuous Dose -- Please send message to pharmacy if additional bag is needed. Given - New Bag 11/24/2017 6.25 110 mL/hr 01:01 CDT mg/kg/hr Given - New Bag 11/24/2017 6.25 110 mL/hr 12:06 CDT mg/kg/hr amoxicillin/K clavulanate (AUGMENTIN) Given 11/26/2017 875 mg tablet 875 mg 08:22 CDT 875 mg, Oral, TWICE DAILY WITH MEALS, 10 doses, First dose on Fri11/24/17 at 1000, Last dose on Fri11/28/17 at 1700, NURSING: Please educate patient and document: Give with food. Given 11/26/2017 875 mg 17:46 CDT Given 11/27/2017 875 mg 08:05 CDT ascorbic acid (VITAMIN C) tablet 500 mg Given 11/25/2017 500 mg 500 mg, Oral, DAILY, First dose on Fri 08:48 CDT 11/21/17 at 1530, Until Discontinued Given 11/26/2017 500 mg 08:22 CDT Given 11/27/2017 500 mg 08:05 CDT aspirin chewable tablet 81 mg Given 11/25/2017 81 mg 81 mg, Oral, DAILY, First dose on Fri 15:04 CDT 11/25/17 at 1515, Until Discontinued Given 11/26/2017 81 mg 08:22 CDT Given 11/27/2017 81 mg 08:05 CDT carvedilol (COREG) tablet 3.125 mg Given 11/26/2017 3.125 mg 3.125 mg, Oral, TWICE DAILY, First dose 20:02 CDT on Fri11/26/17 at 2100, Until Discontinued, Hold for heart rate < 55 bpm or systolic BP < 100 Given 11/27/2017 3.125 mg 08:05 CDT chlorhexidine gluconate (PERIDEX) 0.12 % Given 11/21/2017 15 mL solution 15 mL 08:29 CDT 15 mL, SEE ADMIN INSTRUCTIONS, TWICE DAILY, First dose on Fri11/21/17 at 0800, Until Discontinued, In mechanically ventilated patient, apply with swab to entire oral cavity and artificial airway. Discontinue when patient is no longer ventilated. dexmedetomidine (PRECEDEX) 400 mcg in Given - New 11/21/2017 0.5 8.8 mL /hr sodium chloride 0.9% (NS) 100 mL IV Bag 02:00 CDT mcg/kg/hr infusion 0.2-1 mcg/kg/hr 70.7 kg (3.535-17.675 mL/hr, rounded to 3.5-17.7 mL/hr) 100 mL, at 3.5-17.7 mL/hr, Intravenous, TITRATE DIRECTED , Starting Fri11/21/17 at 0200, Until 11/22/17 at 1206, -Initiate at 0.3 mcg/kg/hr and maintain for 30 minutes -Titrate to keep: RASS of 0 to -2 a.) Titrate infusion in increments of 0.1 mcg/kg/hour at 5 minute intervals until goal sedation level achieved or maintenance exceeds 1.0 mcg/kg/hr b.) If HR < 60 or SBP < 90 mmHg hold for 10 minutes then restart at dose reduced by 0.3 mcg/kg/min c.) Notify physician for persistent hypotension (SBP < 90 mmHg) or bradycardia (HR < 60) over 15 minutes d.) For breakthrough agitation NOTIFY PHYSICIAN and consider bolus of 1 mcg/kg over 20 min if HR and BP are acceptable. e.) Notify physician if maintenance exceeds 1 mcg/kg/hr -Taper agent continuously to lowest effective dose to achieve desired level of sedation keeping patient calm and able to participate in care. Infusion Restarted 11/21/2017 0.5 8.8 mL/hr 10:15 CDT mcg/kg/hr Dose/Rate Change 11/21/2017 0.7 12.4 mL/hr 11:10 CDT mcg/kg/hr dextrose 5 % & 0.45% NaCl infusion Given - New 11/21/2017 1,000 mL 200 mL/hr 1,000 mL, 1,000 mL, Intravenous, at 200 Bag 09:52 CDT mL/hr, CONTINUOUS, Starting Fri11/21/17 at 0330, Until Fri11/21/17 at 1007, To be initiated after fluid resuscitation dextrose 5 % & 0.45% NaCl infusion Dose/Rate 11/21/2017 1,000 mL 100 mL/hr 1,000 mL, 1,000 mL, Intravenous, at 100 Change 10:24 CDT mL/hr, CONTINUOUS, Starting Fri11/21/17 at 1015, Until Fri11/21/17 at 1030, To be initiated after fluid resuscitation enoxaparin (LOVENOX) syringe 40 mg Given 11/24/2017 40 mg Arm, Right 40 mg, Subcutaneous, DAILY, First dose 20:44 CDT on Fri11/23/17 at 2100, Until Discontinued, For patients undergoing surgery: Consult physician in advance -- enoxaparin is an anticoagulant and may need to be held for 12hr prior to surgery or invasive procedures. NOTE: This is a HIGH ALERT Medication. Given 11/25/2017 40 mg Arm, Left 20:06 CDT Given 11/26/2017 40 mg Arm, Right 20:02 CDT fentaNYL (SUBLIMAZE) 1000 mcg/ NS 100 mL Given - New 11/21/2017 40 mcg/ hr 4 mL/hr IV infusion (std conc)(premade) Bag 11:42 CDT 10-100 mcg/hr (1-10 mL/hr) 100 mL, at 1-10 mL/hr, Intravenous, TITRATE DIRECTED , Starting Fri11/21/17 at 1130, Until Fri11/22/17 at 1206, Loading dose 50 mcg, administer slowly Initiate at 10 mcg/hr Titrate to keep: Pain score of <=4 Bolus 25-50 mcg IV and increase infusion by 10 mcg/hr prn breakthrough pain up to a maximum of 100 mcg/hr. Std Conc=10mcg/mL. NOTE: This is a HIGH ALERT Medication. fentaNYL citrate PF (SUBLIMAZE) Given 11/21/2017 50 mcg injection 25-100 mcg 11:12 CDT 25-100 mcg, Intravenous, EVERY 2 HOURS PRN, Starting Fri11/21/17 at 0853, Until Fri11/21/17 at 1116, Pain Injectable fluconazole (DIFLUCAN) tablet 200 mg Given 11/21/2017 200 mg 200 mg, Oral, DAILY, First dose on Fri 08:29 CDT 11/21/17 at 0900, Until Discontinued folic acid (FOLVITE) tablet 1 mg Given 11/25/2017 1 mg 1 mg, Oral, DAILY, First dose on Fri 08:48 CDT 11/21/17 at 1530, Until Discontinued Given 11/26/2017 1 mg 08:22 CDT Given 11/27/2017 1 mg 08:05 CDT furosemide (LASIX) injection 20 mg Given 11/25/2017 20 mg 20 mg, Intravenous, ONCE, 1 dose, Fri 15:04 CDT 11/25/17 at 1400, PROTECT FROM LIGHT furosemide (LASIX) injection 20 mg Given 11/26/2017 20 mg 20 mg, Intravenous, ONCE, 1 dose, Fri 18:46 CDT 11/26/17 at 1830, PROTECT FROM LIGHT heparin (porcine) PF syringe 5,000 Units Given 11/22/2017 5,000 Units Abdomen:LLQ 5,000 Units, Subcutaneous, EVERY 8 13:53 CDT HOURS, First dose on Fri11/21/17 at 0600, Until Discontinued, NOTE: This is a HIGH ALERT Medication. Given 11/22/2017 5,000 Units Abdominal 21:06 CDT Tissue Given 11/23/2017 5,000 Units Arm, Right 07:26 CDT hyoscyamine (ANASPAZ; NULEV; SYMAX Given 11/25/2017 0.125 mg FASTABS; HYOMAX-FT; ED-SPAZ; OSCIMIN) 09:56 CDT rapid dissolve tablet 0.125 mg 0.125 mg, Sublingual, EVERY 4 HOURS PRN, Starting Fri11/25/17 at 0943, Until Jaimie 11/27/17 at 1256, Bladder Spasms insulin aspart U-100 (NOVOLOG FLEXPEN) Given 11/26/2017 1 Units Arm, Left injection PEN 0-7 Units 17:46 CDT 0-7 Units, Subcutaneous, BEFORE MEALS AND AT BEDTIME, First dose on 11/23/17 at 0800, Until Discontinued, -POC glucose 140-180mg/dL at 07, 11, 17 administer 1 unit insulin, at 21, 03* administer 0 units. -POC glucose 181-220mg/dL at , , administer 2 units insulin, at , * administer 1 unit. -POC glucose 221-260mg/dL at , , administer 3 units insulin, at , * administer 2 units. -POC glucose 261-300mg/dL at , , administer 4 units insulin, at , 03* administer 3 units. -POC glucose 301-350mg/dL at , , administer 5 units insulin, at , * administer 4 units. -POC glucose 351-400mg/dL at , , administer 6 units insulin, at , * administer 5 units. -POC glucose >400mg/dL at , , administer 7 units insulin, at , * administer 6 units. *only if ordered 5x's daily For POCT glucose >350mg/dL give correction bolus and recheck POCT glucose in 2 hours. If POCT glucose at 2 hours >300mg/dL call physician for further orders. For patients who are not eating meals, continue to administer the appropriate correction factor. NOTE: This is a HIGH ALERT Medication. Given 11/27/2017 1 Units Arm, Right 08:06 CDT Given 11/27/2017 1 Units Arm, Right 11:40 CDT insulin aspart U-100 (NOVOLOG FLEXPEN) Given 11/26/2017 10 Units Arm, Left injection PEN 10 Units 17:46 CDT 10 Units, Subcutaneous, THREE TIMES DAILY WITH MEALS, First dose on Fri11/26/17 at 1300, Until Discontinued, Hold if NPO for procedure, unable to eat, or if FSBS < 70 mg/dL Give at start of meal. NOTE: This is a HIGH ALERT Medication. Given 11/27/2017 10 Units Arm, Right 08:05 CDT Given 11/27/2017 10 Units Arm, Left 11:39 CDT insulin glargine (LANTUS SOLOSTAR, Given 11/26/2017 28 Units Arm, Right BASAGLAR) injection PEN 28 Units 21:49 CDT 28 Units, Subcutaneous, AT BEDTIME DAILY, First dose on Fri11/26/17 at 2200, Until Discontinued, Continue if NPO. DO NOT mix with other insulins -- Do not mix with other insulins -- NOTE: This is a HIGH ALERT Medication. insulin glargine (LANTUS SOLOSTAR, Given 11/23/2017 30 Units Arm, Left BASAGLAR) injection PEN 30 Units 22:32 CDT 30 Units, Subcutaneous, AT BEDTIME DAILY, First dose on 11/22/17 at 2200, Until Discontinued, Continue if NPO. DO NOT mix with other insulins -- Do not mix with other insulins -- NOTE: This is a HIGH ALERT Medication. Given 11/24/2017 30 Units Arm, Right 20:43 CDT Given 11/25/2017 30 Units Arm, Right 21:45 CDT insulin regular (NOVOLIN R) 100 Units in Given - New 11/21/2017 17 Units/ hr 17 mL/hr sodium chloride 0.9% (NS) 100 mL IV drip Bag 02:01 CDT (std conc) 1-32 Units/hr (1-32 mL/hr) 100 mL, at 1-32 mL/hr, Intravenous, TITRATE DIRECTED , Starting Fri11/21/17 at 0200, Until Fri11/21/17 at 0352, CONTINUOUS INFUSION: For HHS patient: Start infusion immediately after insulin bolus has completed, if bolus was ordered. Run at 0.1units/kg/hr until blood glucose is ?300mg/dL, then decrease to 0.05 units/kg/hr. NOTE: This is a HIGH ALERT Medication. insulin regular (NOVOLIN R) 100 Units in Dose/Rate 11/22/2017 3 Units/hr 3 mL/hr sodium chloride 0.9% (NS) 100 mL IV drip Change 21:12 CDT (std conc) 1-32 Units/hr (1-32 mL/hr) 100 mL, at 1-32 mL/hr, Intravenous, TITRATE DIRECTED , Starting Fri11/21/17 at 0400, Until Fri11/23/17 at 0654, (Administration Instructions were omitted from this summary because they were too long) Dose/Rate Change 11/22/2017 2 Units/hr 2 mL/hr 22:00 CDT Dose/Rate Change 11/23/2017 1 Units/hr 1 mL/hr 00:00 CDT iopamidol 370 (ISOVUE-370) injection 80 Given 11/22/2017 80 mL mL 14:30 CDT 80 mL, Intravenous, ONCE, 1 dose, 11/22/17 at 1430, NOTE: This is a HIGH ALERT Medication. lactated ringers infusion Given - New 11/24/2017 125 mL/hr 1,000 mL, Intravenous, at 125 mL/hr, Bag 20:55 CDT CONTINUOUS, Starting Fri11/24/17 at 1330, Until Fri11/25/17 at 1356 Given - New Bag 11/25/2017 125 mL/hr 03:30 CDT Given - New Bag 11/25/2017 125 mL/hr 12:53 CDT lactobacillus rhamnosus GG (CULTURELLE) Given 11/26/2017 1 capsule 15 billion cell capsule 1 capsule 08:22 CDT 1 capsule, Oral, TWICE DAILY WITH MEALS, First dose on Fri11/24/17 at 1000, Until Discontinued Given 11/26/2017 1 capsule 17:46 CDT Given 11/27/2017 1 capsule 08:05 CDT lidocaine (LIDODERM) 5 % topical patch 1 Patch/Topica 11/25/2017 1 patch Abdomen:RUQ patch l Applied 09:56 CDT 1 patch, Topical, Administer over 12 Hours, DAILY, First dose on Fri11/25/17 at 1045, Until Discontinued, NURSING PLEASE NOTE: Apply patch ONCE DAILY to abdomen and REMOVE after designated duration. Apply only to intact skin. Patch may be cut to fit affected area. Patch/Topical Applied 11/26/2017 1 patch Abdomen:RUQ 08:22 CDT Patch/Topical Applied 11/27/2017 1 patch Abdomen:RUQ 08:05 CDT lisinopril (PRINIVIL; ZESTRIL) tablet 5 Given 11/25/2017 5 mg mg 15:04 CDT 5 mg, Oral, DAILY, First dose on Fri11/25/17 at 1500, Until Discontinued Given 11/26/2017 5 mg 08:22 CDT Given 11/27/2017 5 mg 08:05 CDT loperamide (IMODIUM A-D) capsule 2 mg Given 11/26/2017 2 mg 2 mg, Oral, NEEDED, Starting Fri 08:22 CDT 11/25/17 at 1215, Until Jaimie 11/27/17 at 1256, Diarrhea, GIVE WITH EACH LOOSE STOOL; NOT TO EXCEED 16MG/24HRS Given 11/26/2017 2 mg 20:02 CDT Given 11/27/2017 2 mg 08:05 CDT magnesium sulfate 1 g/D5W 100 mL IVPB Given - New 11/21/2017 1 g 100 mL/hr 1 g, Intravenous, 100 mL, Administer Bag 03:38 CDT over 1 Hours, EVERY 1 HOUR FOR 2 DOSES, 2 doses, First dose on Fri11/21/17 at 0400, Last dose on Fri11/21/17 at 0500, Each 1gm delivers 8.1 mEq Magnsium. Given - New Bag 11/21/2017 1 g 100 mL/hr 04:54 CDT magnesium sulfate 1 g/D5W 100 mL IVPB Given - New 11/25/2017 1 g 100 mL/hr 1 g, Intravenous, 100 mL, Administer Bag 09:56 CDT over 60 Minutes, EVERY 1 HOUR FOR 2 DOSES, 2 doses, First dose on Fri11/25/17 at 1000, Last dose on Fri11/25/17 at 1100, Each 1gm delivers 8.1 mEq Magnsium. Given - New Bag 11/25/2017 1 g 100 mL/hr 11:22 CDT magnesium sulfate 1 g/D5W 100 mL IVPB Given - 11/26/2017 1 g 100 mL/hr 1 g, Intravenous, 100 mL, Administer Bag 09:56 CDT over 60 Minutes, EVERY 1 HOUR FOR 2 DOSES, 2 doses, First dose on Fri11/26/17 at 0900, Last dose on Fri11/26/17 at 1000, Each 1gm delivers 8.1 mEq Magnsium. Given - New Bag 11/26/2017 1 g 100 mL/hr 11:13 CDT norepinephrine (LEVOPHED) 4 mg in Dose/Rate 11/21/2017 0.06 15.9 mL/hr dextrose 5% (D5W) 250 mL IV drip (std Change 22:12 CDT mcg/kg/min conc) 0.01-0.3 mcg/kg/min 70.7 kg (2.6513-79.5375 mL/hr, rounded to 2.7-79.5 mL/hr) 250 mL, at 2.7-79.5 mL/hr, Intravenous, TITRATE DIRECTED , Starting Fri11/21/17 at 0215, Until Fri11/23/17 at 0654, Initiate at 0.2 mcg/kg/min Titrate to keep: Sys> 90 or MAP > 65 Std Conc=16mcg/mL. For weight-based dosing, use patient dosing weight. Dose/Rate Change 11/21/2017 0.04 10.6 mL/hr 23:10 CDT mcg/kg/min Dose/Rate Change 11/22/2017 0.02 5.3 mL/hr 01:00 CDT mcg/kg/min OLANZapine (ZYPREXA) injection 2.5 mg 2.5 mg, Intramuscular, EVERY 6 HOURS PRN, Starting 11/22/17 at 1733, Until Jaimie 11/27/17 at 1256, Agitation Injectable, Severe Agitation: use concurrently with other medications, Reconstitute 10mg vial with 2.1ml sterile water. Use within 1hr. For IM use only -- Do NOT give IV or SC. IM Olanzapine should NOT be administered within 1 hour of parenteral (IM/IV) benzodiazepines ondansetron (ZOFRAN ODT) rapid dissolve Given 11/23/2017 4 mg tablet 4 mg 10:20 CDT 4 mg, Oral, EVERY 4 HOURS PRN, Starting 11/22/17 at 0746, Until Jaimie 11/27/17 at 1256, Nausea/Vomiting PO, Place on tongue and allow to dissolve. Given 11/26/2017 4 mg 08:45 CDT Given 11/27/2017 4 mg 08:05 CDT pantoprazole (PROTONIX) injection 40 mg Given 11/21/2017 40 mg 40 mg, Intravenous, DAILY, First dose on 08:26 CDT Fri11/21/17 at 0900, Until Discontinued pantoprazole (PROTONIX) injection 40 mg Given 11/21/2017 40 mg 40 mg, Intravenous, TWICE DAILY, First 20:11 CDT dose on Fri11/21/17 at 2100, Until Discontinued Given 11/22/2017 40 mg 08:29 CDT pantoprazole (PROTONIX) injection 40 mg Given 11/25/2017 40 mg 40 mg, Intravenous, DAILY, First dose on 08:48 CDT 11/23/17 at 0900, Until Discontinued Given 11/26/2017 40 mg 12:57 CDT Given 11/27/2017 40 mg 08:[address] (PROTONIX) tablet 40 mg 40 mg, Oral, DAILY, First dose on Jaimie 11/27/17 at 2100, Until Discontinued, Do not crush or chew tablet. perflutren lipid microspheres (DEFINITY) Given 11/21/2017 1 Diluted mL injection 1-20 Diluted mL 10:41 CDT 1-20 Diluted mL, Intravenous, ONCE, 1 dose, Fri11/21/17 at 1045, NOTE: This is a HIGH ALERT Medication. phenol (CLORASEPTIC; PHENASEPTIC) spray 2 spray 2 spray, Mouth/Throat, NEEDED, Starting 11/23/17 at 2340, Until Jaimie 11/27/17 at 1256, Mouth/Throat Pain phytonadione (VITAMIN K) injection 10 mg Given 11/21/2017 10 mg Abdomen:RLQ 10 mg, Subcutaneous, DAILY, 3 doses, 16:22 CDT First dose on Fri11/21/17 at 1530, Last dose on Fri11/23/17 at 0900 Given 11/22/2017 10 mg Abdomen:RLQ 08:30 CDT Given 11/23/2017 10 mg Arm, Left 08:08 CDT piperacillin/tazobactam (ZOSYN) 3.375 Given - New 11/23/2017 3.375 g 100 mL/hr g/50 mL iso-osmotic IVPB Bag 18:57 CDT 3.375 g, Intravenous, at 100 mL/hr, EVERY 6 HOURS, First dose on Fri11/22/17 at 1300, Until Discontinued Given - New Bag 11/24/2017 3.375 g 100 mL/hr 01:01 CDT Given - New Bag 11/24/2017 3.375 g 100 mL/hr 06:53 CDT polyethylene glycol 3350 (MIRALAX) Given 11/22/2017 17 g packet 17 g 08:29 CDT 17 g (1 packet), Oral, TWICE DAILY, First dose on 11/22/17 at 0900, Until Discontinued, 8.5 GRAMS=0.5 PACKET 17 GRAMS=1 PACKET 34 GRAMS=2 PACKETS Given 11/22/2017 17 g 21:06 CDT Given 11/24/2017 17 g 08:31 CDT potassium chloride in water IVPB 10 mEq Given - New 11/21/2017 10 mEq 50 mL/hr 10 mEq, Intravenous, 50 mL, Administer Bag 10:03 CDT over 60 Minutes, EVERY 1 HOUR FOR 4 DOSES, 4 doses, First dose on Fri11/21/17 at 0900, Last dose on Fri11/21/17 at 1200, NOTE: This is a HIGH ALERT Medication. Given - New Bag 11/21/2017 10 mEq 50 mL/hr 10:38 CDT Given - New Bag 11/21/2017 10 mEq 50 mL/hr 11:11 CDT potassium chloride in water IVPB 10 mEq Given - New 11/22/2017 10 mEq 50 mL/hr 10 mEq, Intravenous, 50 mL, Administer Bag 19:26 CDT over 60 Minutes, EVERY 1 HOUR FOR 4 DOSES, 4 doses, First dose on Fri11/22/17 at 1800, Last dose on Fri11/22/17 at 2100, NOTE: This is a HIGH ALERT Medication. Given - New Bag 11/22/2017 10 mEq 50 mL/hr 20:15 CDT Given - New Bag 11/22/2017 10 mEq 50 mL/hr 21:00 CDT potassium chloride oral solution 40 mEq Given 11/21/2017 40 mEq 40 mEq, Oral, ONCE, 1 dose, Fri11/21/17 09:27 CDT at 0845 potassium chloride oral solution 60 mEq Given 11/21/2017 60 mEq 60 mEq, Oral, ONCE, 1 dose, Fri11/21/17 03:38 CDT at 0315 potassium chloride SR (K-DUR) tablet 20 Given 11/25/2017 20 mEq mEq 15:04 CDT 20 mEq, Oral, ONCE, 1 dose, Fri11/25/17 at 1400, Do NOT break or crush tablet potassium chloride SR (K-DUR) tablet 40 Given 11/22/2017 40 mEq mEq 08:48 CDT 40 mEq, Oral, ONCE, 1 dose, Fri11/22/17 at 0845, - Tablet may be dispersed in water. Place tab in 30 mL of water for 40-60 seconds. - Gently swirl until fully dispersed. If particles remain after admin, add small amount of water and admin remaining content. - DO NOT CRUSH. Tablet may be split in half. potassium chloride SR (K-DUR) tablet 40 Given 11/22/2017 40 mEq mEq 23:03 CDT 40 mEq, Oral, ONCE, 1 dose, Fri11/22/17 at 2230, Do NOT break or crush tablet potassium chloride SR (K-DUR) tablet 40 Given 11/23/2017 40 mEq mEq 05:10 CDT 40 mEq, Oral, ONCE, 1 dose, [place] 11/23/17 at 0430 potassium chloride SR (K-DUR) tablet 40 Given 11/25/2017 40 mEq mEq 09:56 CDT 40 mEq, Oral, ONCE, 1 dose, Tu11/25/17 at 0915, Do NOT break or crush tablet potassium chloride SR (K-DUR) tablet 40 Given 11/26/2017 40 mEq mEq 09:53 CDT 40 mEq, Oral, EVERY 4 HOURS, 2 doses, First dose on Fri11/26/17 at 1000, Last dose on Fri11/26/17 at 1400, Do NOT break or crush tablet Given 11/26/2017 40 mEq 12:56 CDT potassium chloride SR (K-DUR) tablet 40 Given 11/27/2017 40 mEq mEq 10:08 CDT 40 mEq, Oral, ONCE, 1 dose, [facility] 11/27/17 at 0845, Do NOT break or crush tablet potassium phosphate 24 mmol in sodium Given - New 11/21/2017 24 mmol 83.3 mL/hr chloride 0.9% (NS) 500 mL IVPB (std) Bag 03:38 CDT 24 mmol, Intravenous, 500 mL, Administer over 6 Hours, ONCE, 1 dose, Fri11/21/17 at 0315, Each 10mM K Phos delivers 14.7meq K+ NOTE: This is a HIGH ALERT Medication. potassium, sodium phosphates (PHOS-NaK) Given 11/23/2017 500 mg packet 500 mg 08:08 CDT 500 mg (2 packet), Oral, ONCE, 1 dose, [place] 11/23/17 at 0715, NEUTRAPHOS or Phos-NaK -- MIX PACKET IN 75ML WATER Each packet delivers 8mM Phosphorus, 7mEq Potassium, and 7 mEq Sodium potassium, sodium phosphates (PHOS-NaK) Given 11/24/2017 500 mg packet 500 mg 10:53 CDT 500 mg (2 packet), Oral, ONCE, 1 dose, 11/24/17 at 0845, NEUTRAPHOS or Phos-NaK -- MIX PACKET IN 75ML WATER Each packet delivers 8mM Phosphorus, 7mEq Potassium, and 7 mEq Sodium propofol (DIPRIVAN) 10 mg/mL IV infusion Given - New 11/21/2017 30 12.7 mL/hr 5-150 mcg/kg/min Bag 05:45 CDT mcg/kg/min 70.7 kg (2.121-63.63 mL/hr, rounded to 2.1-63.6 mL/hr) 100 mL, at 2.1-63.6 mL/hr, Intravenous, TITRATE DIRECTED , Starting Fri11/21/17 at 0215, Until Fri11/21/17 at 0854, -Initiate at 10 mcg/kg/min (No loading dose) -Titrate to keep: RASS of 0 to -2- -Increase in 10 mcg/kg/min increments every 1 minute to achieve goal sedation level. -Call physician if maintenance exceeds 150 mcg/kg/min -Taper agent continuously to lowest effective dose to achieve desired level of sedation keeping patient calm and able to participate in care. NOTE: This is a HIGH ALERT Medication. Given - New Bag 11/21/2017 35 14.8 mL/hr 06:32 CDT mcg/kg/min Dose/Rate Change 11/21/2017 40 17 mL/hr 07:28 CDT mcg/kg/min rifAXIMin (XIFAXAN) tablet 550 mg Given 11/24/2017 550 mg 550 mg, Oral, TWICE DAILY, First dose on 08:32 CDT Fri11/21/17 at 0200, Until Discontinued Given 11/24/2017 550 mg 20:44 CDT Given 11/25/2017 550 mg 08:48 CDT sodium chloride 0.9 % infusion Given - 11/21/2017 1,000 mL 200 mL /hr 1,000 mL, 1,000 mL, Intravenous, at 200 Bag 02:21 CDT mL/hr, BOLUS, 1 dose, Fri11/21/17 at 0200, Call if glucose <250 SODIUM CHLORIDE 0.9 % IV SOLP (Cabinet Override) NOW, 1 dose, Fri11/21/17 at 0000, Created by cabinet override sodium chloride PF 0.9% injection 50 mL Given 11/22/2017 50 mL 50 mL, Intravenous, ONCE, 1 dose, Sat 14:30 CDT 11/22/17 at 1430, DO NOT SEND this medication unless it is requested. This med is usually available in floor stock. sodium phosphate 32 mmol in dextrose 5% Given - New 11/22/2017 32 mmol 63 mL/hr (D5W) 250 mL IVPB (5-40 kg) Bag 18:53 CDT 32 mmol, Intravenous, 250 mL, Administer over 4 Hours, ONCE, 1 dose, Fri11/22/17 at 1730, Ready to Administer sodium phosphate 32 mmol in dextrose 5% Given - New 11/21/2017 32 mmol 63 mL/hr (D5W) 250 mL IVPB Bag 18:12 CDT 32 mmol, Intravenous, 250 mL, Administer over 4 Hours, ONCE, 1 dose, Fri11/21/17 at 1745 sodium phosphate 40 mmol in dextrose 5% Given - New 11/21/2017 40 mmol 42 mL/hr (D5W) 250 mL IVPB Bag 11:54 CDT 40 mmol, Intravenous, 250 mL, Administer over 6 Hours, ONCE, 1 dose, Fri11/21/17 at 0815 vitamins, B complex tablet 1 tablet Given 11/24/2017 1 tablet 1 tablet, Oral, DAILY, First dose on Fri 08:32 CDT 11/21/17 at 1530, Until Discontinued Given 11/25/2017 1 tablet 08:48 CDT Given 11/26/2017 1 tablet 08:22 CDT ziprasidone (GEODON) capsule 20 mg Given 11/26/2017 20 mg 20 mg, Oral, TWICE DAILY WITH MEALS, 17:49 CDT First dose on Fri11/26/17 at 1700, Until Discontinued, RESTRICTED USE NURSING: Please educate patient and document: Give with food. Given 11/27/2017 20 mg 08:05 CDT in this encounter
--- OUTSIDE RECORDS SUMMARY | 2017-12-13 03:17 | XMS REPORT | Encounter Summary ---
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 [place], [place] [id number] Social History Tobacco Use Types Packs/Day Years Used Date Current Every Day Smoker Cigarettes Sex Assigned at Date Recorded Not on file as of this encounter Plan of Treatment Not on fileas of this encounter Visit Diagnoses Not on filein this encounter
--- OUTSIDE RECORDS SUMMARY | 2017-12-13 03:17 | XMS REPORT | Encounter Summary ---
Author Author [facility] Organization [facility] Address Unknown Phone Unavailable Care Team Providers Care Dice Table Person Name Role Phone No Pcp, Na PCP Unavailable Encounter Details Date Type Department Care Team Description 11/21/2017 Procedure Pass Renal/Organ Transplant [address] [facility]. [place], [place] [id number] Social History Tobacco Use Types Packs/Day Years Used Date Current Every Day Smoker Cigarettes Sex Assigned at Date Recorded Not on file as of this encounter Plan of Treatment Not on fileas of this encounter Visit Diagnoses Not on filein this encounter
--- OUTSIDE RECORDS SUMMARY | 2017-12-13 03:18 | XMS REPORT ---
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 Active 86301850 Problem Panic disorder [episodic paroxysmal anxiety] without agoraphobia F41.0 Active 31560624 Problem BG (generalized anxiety disorder) F41.1 Active 92385662 Problem Paranoid schizophrenia F20.0 Active 55751208 Problem Benign prostatic hyperplasia with lower urinary tract symptoms N40.1 Active 869972870 Problem 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 Active 3362090 Problem Acute medication-induced akathisia G25.89 Active 425089953 ALLERGIES No Information ENCOUNTERS Encounter Location Date Diagnosis [facility] [id number] [place] [address] 43768- 2715 Dec, [facility] [id number] [place] [address] 48648- 4049 Nov, [facility] [id number] [place] [address] 37888- 0023 Nov, Diabetes E11.9 [facility] [id number] [place] [address] 12149- 1537 October, [facility] [address] [address] 14[address] October, [place] [address] [address] October, [facility] [address] [address] 3046 October, Diabetes E11.9 [facility] [address] [address] 2646 Sep, [facility] [address] [address] 4912 Sep, Diabetes E11.9 [facility] [address] [address] 9341 Jun, [facility] [id number] [address] 1666 Jun, Diabetes E11.9 [facility] [address] [address] 1436 Jun, Diabetes E11.9 [facility] [address] [address] 2886 Jun, Diabetes E11.9 [facility] [address] [address] 9946 May, [facility] [address] [address] 0[address] Apr, [facility] [address] [address] 7076 Mar, Diabetes E11.9 [facility] [id number] [address] 8916 Mar, [facility] [address] [address] 7206 Jan, [facility] [address] [address] Jan, BG (generalized anxiety disorder) F41.1 ; 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 ; Acute medication-induced akathisia G25.89 and Paranoid schizophrenia F20.0 [facility] [address] [address] 0715 Jan, Paranoid schizophrenia F20.0 [facility] [address] [address] Jan, [facility] [address] [address] 6896 Dec, Type 2 diabetes mellitus with complication E11.8 [facility] [address] [address] 0416 Nov, Diabetes E11.9 [facility] [id number] [place] [address] 08329- 2258 Nov, [facility] [id number] [address]- 0727 Nov, [facility] [id number] [place] [address] 34466- 7229 October, [facility] [id number] [address]- 1554 October, Type 2 diabetes mellitus with complication E11.8 ; Dysuria R30.0 and Benign prostatic hyperplasia with lower urinary tract symptoms N40.1 [facility] [address] [address]- 0582 Sep, [facility] [id number] [address]- 9307 Aug, Diabetes E11.9 [facility] [address] [address]- 4516 Jul, [facility] [id number] [address]- 9355 Jun, Diabetes E11.9 [facility] [address] [address]- 4762 May, [facility] [id number] [address]- 6722 May, [facility] [id number] [place] [address] 30297- 2589 May, Diabetes E11.9 [facility] [id number] [place] [address] 29272- 3076 Apr, Diabetes E11.9 [facility] [id number] [place] [address] 97561- 8645 Mar, Type 2 diabetes mellitus with complication E11.8 [facility] [id number] [place] [address] 11759- 6668 Nov, Type 2 diabetes mellitus with complication E11.8 [facility] [id number] [place] [address] 61087- 7091 Sep, Type 2 diabetes mellitus with complication E11.8 and Weak urinary stream R39.12 [facility] [id number] [place] [address] 95204- 7755 Aug, [facility] [id number] [place] [address] 73861- 0364 Jul, Diabetes E11.9 and Visual changes H53.9 [facility] [id number] [place] [address] 78181- 0724 Apr, Diabetes E11.9 and Long-term insulin use Z79.4 [facility] [id number] [place] [address] 39109- 1458 Jan, Diabetes 250.00 [facility] [address] [place] [address] 69972- 2768 Dec, [facility] [id number] [place] [address] 78312- 4103 October, [facility] [id number] [place] [address] 13739- 8035 October, [facility] [id number] [place] [address] 73858- 5716 October, Diabetes with ketoacidosis, type II or unspecified type, not stated as uncontrolled 250.10 [facility] [address] [facility] [id number] [place] [address]- 3891 Sep, [facility] [address] [facility] [id number] [place] [address]- 3502 Sep, [facility] [address] [facility] [id number] [address]808 Jan, [facility] [address] [facility] [id number] [place] [address]37 Jan, [facility] [address] [facility] [id number] [place] 1521 Jan, [facility] [address] [facility] [id number] [address]- 8206 Jan, [facility] [id number] [address]- 3713 Dec, [facility] [address] [facility] [id number] [place] [address]- 4911 Dec, [facility] [id number] [address]- 4408 Nov, [facility] [id number] [address]- 6304 Nov, [facility] [address] [facility] [id number] [address]- 2299 Nov, [facility] [address] [facility] [id number] [address]- 2094 Nov, [facility] [address] [facility] [id number] [address]- 6370 Jul, [facility] [address] [facility] [id number] [address]- 5706 Jul, [facility] [id number] [address]- 9596 Jun, [facility] [address] [id number] [place] [address]- 9406 Jun, [facility] [place] [facility] [address] [id number] [place] [address]- 4321 Jun, [facility] [place] [facility] [address] [id number] [place] [address]- 6415 Jun, [facility] [place] [facility] [address] [id number] [place] [address]- 0027 Apr, [facility] [place] [facility] [address] [id number] [place] [address]- 2920 Apr, [facility] [place] [facility] [address] [id number] [place] [address]- 8860 Apr, [facility] [place] [facility] [address] [id number] [place] [address]- 7166 Apr, [facility] [place] [facility] [address] [id number] [place] [address]- 2214 Apr, [facility] [place] [facility] [address] [id number] [place] [address]- 9031 Apr, [facility] [place] [facility] [address] [id number] [place] [address]- 3721 Dec, [facility] [place] [facility] [address] [id number] [address]- 4289 Nov, [facility] [place] [facility] [address] [id number] [place] [address]- 4037 Nov, [facility] [place] [facility] [address] [id number] [place] [address]- 6362 October, [facility] [place] [facility] [address] [id number] [place] [address]- 8792 October, [facility] [place] [facility] [address] [id number] [place] [address]- 1866 October, [facility] [place] [facility] [address] [id number] [place] [address]- 5721 October, [facility] [address] [id number] [place] [address]- 5858 October, [facility] [address] [id number] [place] [address]- 7137 29 Sep, 2012 [facility] [address] [id number] [place] [address]- 3746 16 Sep, 2012 [facility] [address] [id number] [place] [address]- 5104 28 Aug, 2012 [facility] [address] [id number] [place] [address]- 9796 Aug, [facility] [address] [id number] [place] [address]- 0305 Aug, [facility] [address] [id number] [place] 5730 Aug, [facility] [address] [id number] [place] [address]- 2111 Aug, [facility] [address] [id number] [place]83 Aug, [facility] [address] [id number] [place] [address]- 5493 Jul, [facility] [address] [id number] [place] [address]- 4924 Jun, [facility] [address] [id number] [place] [address]- 4910 Jun, [facility] [place] [facility] [address] [id number] [place] [address]- 3442 May, [facility] [place] [facility] [address] [id number] [place] 9543 May, [facility] [address] [id number] [place] [address]- 4990 14 Apr, 2012 [facility] [place] [facility] [address] [id number] [place] [address]- 7589 14 Apr, 2012 [facility] [place] [facility] [address] [id number] [place] [address]- 1543 13 Apr, 2012 [facility] [place] [facility] [address] [id number] [place] [address]- 3026 13 Apr, 2012 [facility] [place] [facility] [id number] [place] [address], [place] [address]- 0073 08 Apr, 2012 [facility] [place] [facility] [address] [id number] [place] [address]- 9718 08 Apr, 2012 [facility] [place] [facility] [address] [id number] [place] [address]- 5285 08 Apr, 2012 [facility] [place] [facility] [address] [id number] [place] [address]- 3636 Apr, [facility] [place] [facility] [address] [id number] [place] [address]- 4331 20 Feb, 2012 [facility] [place] [facility] [address] [id number] [place] [address]- 0341 18 Feb, 2012 [facility] [place] [facility] [address] [id number] [place] [address]- 6526 Nov, [facility] [place] [facility] [address] [id number] [place] [address]- 8011 Nov, [facility] [place] [facility] [address] [id number] [address]- 3536 Jun, [facility] [place] [facility] [address] [id number] [place] [address]- 6625 Mar, [facility] [place] [facility] [address] [id number] [place] [address]- 4594 Mar, [facility] [place] [facility] [address] [id number] [place] [address]- 0658 Mar, [facility] [place] [facility] [address] [id number] [address]- 0775 14 Nov, 2010 [facility] [id number] [address]- 5389 Apr, [facility] [address] [address]- 8025 Mar, [facility] [address] [address]- 2421 Mar, [facility] [address] [address]- 9006 Mar, [facility] [address] 8742 Mar, [facility] [address] [address]- 2101 May, [facility] [address] [address]- 9877 Mar, [facility] [address]- 3138 15 Mar, 2009 IMMUNIZATIONS No Known Immunizations SOCIAL HISTORY Never Assessed REASON FOR VISIT Medication refill request PLAN OF CARE VITAL SIGNS MEDICATIONS Unknown Medications RESULTS No Results PROCEDURES No Known procedures INSTRUCTIONS MEDICATIONS ADMINISTERED No Known Medications MEDICAL (GENERAL) HISTORY Type Description Date Medical History type II diabetes Medical History hypertension Medical History hyperlipidemia Medical History psychosis Medical History Eye exam normal Surgical History fundoplication-Lap Peggy Surgical History tonsillectomy Hospitalization History surgery Hospitalization History [facility] 10/18/17
[2017-12-13 03:37] LABS: BASOPHILS % (AUTO) 0 % (0-10); EOSINOPHILS # (AUTO) 0.2 10^3/uL (0.0-0.3); EOSINOPHILS % (AUTO) 2 % (0-10); HEMATOCRIT 41 % (40-54); HEMOGLOBIN 14.1 G/DL (13.3-17.7); LYMPHOCYTES % (AUTO) 17 % (12-44); MEAN CORPUSCULAR HEMOGLOBIN 31 PG (25-34); MEAN CORPUSCULAR HGB CONC 35 G/DL (32-36); MEAN CORPUSCULAR VOLUME 90 FL (80-99); MEAN PLATELET VOLUME 10.2 FL (7.4-10.4); MONOCYTES # (AUTO) 1.1 X 10^3 (0.0-1.0); MONOCYTES % (AUTO) 10 % (0-12); NEUTROPHILS # (AUTO) 8.3 X 10^3 (1.8-7.8); NEUTROPHILS % (AUTO) 71 % (42-75); PLATELET COUNT 332 10^3/uL (130-400); RED BLOOD COUNT 4.55 10^6/uL (4.35-5.85); WHITE BLOOD COUNT 11.7 10^3/uL (4.3-11.0)
[2017-12-13 03:39] LABS: BILIRUBIN,URINE NEGATIVE (NEGATIVE); CLARITY,URINE CLEAR; COLOR,URINE YELLOW; GLUCOSE, URINE (UA) NEGATIVE (NEGATIVE); KETONES,URINE NEGATIVE (NEGATIVE); LEUKOCYTE ESTERASE ,URINE NEGATIVE (NEGATIVE); NITRITE,URINE NEGATIVE (NEGATIVE); PH,URINE 6 (5-9); PROTEIN,URINE NEGATIVE (NEGATIVE); UROBILINOGEN,URINE NORMAL (NORMAL)
[2017-12-13 03:47] LABS: PROTHROMBIN TIME PATIENT 13.5 SEC (12.2-14.7)
[2017-12-13 03:48] LABS: AMPHETAMINE SCREEN, URINE NEGATIVE (NEGATIVE); BARBITURATE SCREEN URINE NEGATIVE (NEGATIVE); BENZODIAZEPINES SCREEN URINE NEGATIVE (NEGATIVE); CANNABINOID SCREEN, URINE NEGATIVE (NEGATIVE); COCAINE SCREEN URINE NEGATIVE (NEGATIVE); METHADONE STAT NEGATIVE (NEGATIVE); METHAMPHETAMINE SCREEN URINE S NEGATIVE (NEGATIVE); OPIATE SCREEN URINE NEGATIVE (NEGATIVE); OXYCODONE STAT NEGATIVE (NEGATIVE); PROPOXYPHENE STAT NEGATIVE (NEGATIVE); TRICYCLIC ANTIDEPRESSANTS SCRE NEGATIVE (NEGATIVE)
[2017-12-13 03:49] LABS: BACTERIA,URINE NEGATIVE /HPF; SQUAMOUS EPITHELIAL CELL,UR RARE /HPF
[2017-12-13 03:56] LABS: ALANINE AMINOTRANSFERASE 30 U/L (0-55); ALBUMIN 4.2 GM/DL (3.2-4.5); ALKALINE PHOSPHATASE 91 U/L (40-136); BILIRUBIN,TOTAL 0.3 MG/DL (0.1-1.0); BUN/CREATININE RATIO 18; CALCIUM 9.9 MG/DL (8.5-10.1); CARBON DIOXIDE 21 MMOL/L (21-32); CHLORIDE 106 MMOL/L (98-107); CREATININE SERUM 0.84 MG/DL (0.60-1.30); GFR ESTIMATED > 60; GLUCOSE 154 MG/DL (70-105); MAGNESIUM 1.9 MG/DL (1.8-2.4); POTASSIUM 3.8 MMOL/L (3.6-5.0); SODIUM 140 MMOL/L (135-145)
[2017-12-13 04:16] LABS: TSH (THYROID ANALYZER) 3.22 UIU/ML (0.35-4.94)
--- NOTE | 2017-12-13 06:19 | ED Psychosocial ---
General Chief Complaint: Psych/Social Disorder Stated Complaint: SUICIDAL, STS WANTS TO KILL SELF Nursing Triage Note: PT BROUGHT IN BY POLICE WITH COMPLAINT OF SUICIDAL IDEATS. PT STATES HE HAS BEEN HAVING THE THOUGHTS FOR ABOUT A DAY. STATES A COUPLE WEEKS AGO HE TOOK HALF A BOTTLE OF TYLENOL AND WAS SENT TO [facility]. Source: patient Exam Limitations: no limitations (SEYMOUR MUNOZ MD) Source: patient (JOSH LOPES MD) History of Present Illness Date Seen by Provider: Dec 13, 2017 Time Seen by Provider: 03:11 Initial Comments Patient is brought to the emergency room accompanied by [place] police because of suicidal ideation. He had contacted the [facility] earlier but had no transportation to the hospital. He now presents with police stating he is feeling suicidal and is requesting admission. Patient had been admitted to this facility in late October with severe diabetic ketoacidosis requiring intubation. He had also attempted suicide by ingesting an overdose of Tylenol. Patient was ultimately transferred to [facility] for hepatology services. Patient reports suicidal ideation started again yesterday. He has no specific plan but he states he did not have a plan with his Tylenol overdose either. It was a spontaneous rapid decision. He is specifically requesting admission to a psychiatric facility. He denies any drug or alcohol abuse. (SEYMOUR MUNOZ MD) Allergies and Home Medications Allergies Coded Allergies: Cephalexin Monohydrate (Verified Adverse Reaction, Mild, 07/18/11) erythromycin base (Verified Adverse Reaction, Mild, 07/18/11) Home Medications Fluoxetine HCl 20 Mg Capsule, 20 MG PO DAILY, (Reported) LAST FILLED #30 09-19-18 Haloperidol 10 Mg Tablet, 10 MG PO HS, (Reported) LAST FILLED #30 3--18 Insulin Aspart 100 Unit/1 Ml Susp, 25 UNIT SQ TIDAC, (Reported) Patient Home Medication List Home Medication List Reviewed: Yes (SEYMOUR MUNOZ MD) Home Medication List Reviewed: Yes (JOSH LOPES MD) Constitutional: no symptoms reported EENTM: no symptoms reported Respiratory: no symptoms reported Cardiovascular: no symptoms reported Gastrointestinal: no symptoms reported Genitourinary: no symptoms reported Musculoskeletal: no symptoms reported Skin: no symptoms reported Psychiatric/Neurological: See HPI (SEYMOUR MUNOZ MD) Past Dcgsvqk-Skdwmd-Aptkup Hx Past Med/Social Hx: Reviewed Nursing Past Med/Soc Hx (SEYMOUR MUNOZ MD) Past Med/Social Hx: Reviewed Nursing Past Med/Soc Hx (JOSH LOPES MD) Patient Social History Alcohol Use: Denies Use Recreational Drug Use: No Smoking Status: Current Everyday Smoker Type Used: Cigarettes 2nd Hand Smoke Exposure: No Recent Foreign Travel: No Contact w/Someone Who Travel: No Recent Infectious Disease Expo: No Recent Hopitalizations: Yes (WHIT) Physical Abuse: No Sexual Abuse: No (SEYMOUR MUNOZ MD) Immunizations Up To Date Tetanus Booster (TDap): Less than 5yrs Date of Influenza Vaccine: Apr 10, 2016 (SEYMOUR MUNOZ MD) Seasonal Allergies Seasonal Allergies: No (SEYMOUR MUNOZ MD) Past Medical History Surgeries: Yes (NEGAR ANTONIO) Abdominal, Tonsillectomy Respiratory: No Cardiac: Yes High Cholesterol, Hypertension Neurological: No Reproductive Disorders: No Genitourinary: No Gastrointestinal: Yes Gastroesophageal Reflux, Hiatal Hernia Musculoskeletal: No Endocrine: Yes (Type 1, history of DKA) Diabetes, Insulin dep HEENT: No Cancer: No Psychosocial: Yes Anxiety, Suicide Attempts, Bipolar, Schizophrenia Nursing Suicide Risk Score: 7 Integumentary: No Blood Disorders: No Adverse Reaction/Blood Tranf: No (SEYMOUR MUNOZ MD) Family Medical History Reviewed Nursing Family Hx (SEYMOUR MUNOZ MD) Cataract 03 FATHER, Onset:60 years & older Family history: Arthritis 03 FATHER, Onset:60 years & older Family history: Diabetes mellitus 03 FATHER, Onset:60 years & older Hypercholesterolemia 03 FATHER, Onset:60 years & older No Family History of: Abdominal aortic aneurysm Maxime's disease Alcoholism Aphasia Cancer Cancer of colon Chest pain Congenital heart disease Congestive heart failure Cystic fibrosis Dementia Dysphagia Family history: Allergy Family history: Alzheimer's disease Family history: Asthma Family history: Breast disease Family history: Cardiovascular disease Family history: Coronary thrombosis Family history: Gastrointestinal disease Family history: Glaucoma Family history: Hypertension Family history: Osteoporosis Family history: Thyroid disorder Headache Hearing loss Heart disease Hereditary disease History of - anemia History of - respiratory disease History of drug abuse Human immunodeficiency virus (HIV) seropositivity Infertile Kidney disease Malignant neoplasm of lung Myocardial infarction Parkinson's disease Prostate cancer Psychotic disorder Seizure disorder Stroke Tuberculosis Visual impairment Diabetes (SEYMOUR MUNOZ MD) Physical Exam Vital Signs Vital Signs - First Documented 12/13/17 03:10 Temp 98.0 Pulse 109 Resp 20 B/P (MAP) 130/86 (101) Pulse Ox 97 O2 Delivery Room Air (JOSH LOPES MD) Vital Signs Capillary Refill : Less Than 3 Seconds (SEYMOUR MUNOZ MD) General Appearance: WD/WN, no apparent distress HEENT: PERRL/EOMI, normal ENT inspection, other (oropharynx somewhat dry) Neck: supple, normal inspection Respiratory: lungs clear, normal breath sounds, no respiratory distress, no accessory muscle use Cardiovascular: no edema, no murmur, tachycardia Gastrointestinal: normal bowel sounds, non tender, soft Extremities: normal inspection, no pedal edema Neurologic/Psychiatric: export clerk II-XII nml as tested, no motor/sensory deficits, alert, normal mood/affect, oriented x 3 Appearance/Memory: appropriate appearance, appropriate insight, other ( suicidal ideation) Behavior/Eye Contact: cooperative, good eye contact, normal speech Skin: normal color, warm/dry (SEYMOUR MUNOZ MD) Procedures/Interventions Date of ETT Placement: November 20, 2017 Time of ETT Placement: [phone] (SEYMOUR MUNOZ MD) Progress/Results/Core Measures Results/Orders Lab Results Laboratory Tests Test 12/13/17 03:25 12/13/17 13:53 Range/Units White Blood Count 11.7 H 4.3-11.0 10^3/uL Red Blood Count 4.55 4.35-5.85 10^6/uL Hemoglobin 14.1 13.3-17.7 G/DL Hematocrit 41 40-54 % Mean Corpuscular Volume 90 80-99 FL Mean Corpuscular Hemoglobin 31 25-34 PG Mean Corpuscular Hemoglobin Concent 35 32-36 G/DL Red Cell Distribution Width 14.0 10.0-14.5 % Platelet Count 332 130-400 10^3/uL Mean Platelet Volume 10.2 7.4-10.4 FL Neutrophils (%) (Auto) 71 42-75 % Lymphocytes (%) (Auto) 17 12-44 % Monocytes (%) (Auto) 10 0-12 % Eosinophils (%) (Auto) 2 0-10 % Basophils (%) (Auto) 0 0-10 % Neutrophils # (Auto) 8.3 H 1.8-7.8 X 10^3 Lymphocytes # (Auto) 2.0 1.0-4.0 X 10^3 Monocytes # (Auto) 1.1 H 0.0-1.0 X 10^3 Eosinophils # (Auto) 0.2 0.0-0.3 10^3/uL Basophils # (Auto) 0.0 0.0-0.1 10^3/uL Prothrombin Time 13.5 12.2-14.7 SEC INR Comment 1.0 0.8-1.4 Activated Partial Thromboplast Time 29 24-35 SEC Urine Color YELLOW Urine Clarity CLEAR Urine pH 6 5-9 Urine Specific [place] 1.015 L 1.016-1.022 Urine Protein NEGATIVE NEGATIVE Urine Glucose (UA) NEGATIVE NEGATIVE Urine Ketones NEGATIVE NEGATIVE Urine Nitrite NEGATIVE NEGATIVE Urine Bilirubin NEGATIVE NEGATIVE Urine Urobilinogen NORMAL NORMAL MG/DL Urine Leukocyte Esterase NEGATIVE NEGATIVE Urine RBC (Auto) NEGATIVE NEGATIVE Urine RBC NONE /HPF Urine WBC NONE /HPF Urine Squamous Epithelial Cells RARE /HPF Urine Crystals NONE /LPF Urine Bacteria NEGATIVE /HPF Urine Casts NONE /LPF Urine Mucus NEGATIVE /LPF Urine Culture Indicated NO Sodium Level 140 135-145 MMOL/L Potassium Level 3.8 3.6-5.0 MMOL/L Chloride Level 106 98-107 MMOL/L Carbon Dioxide Level 21 21-32 MMOL/L Anion Gap 13 5-14 MMOL/L Blood Urea Nitrogen 15 7-18 MG/DL Creatinine 0.84 0.60-1.30 MG/DL Estimat Glomerular Filtration Rate > 60 BUN/Creatinine Ratio 18 Glucose Level 154 H 70-105 MG/DL Calcium Level 9.9 8.5-10.1 MG/DL Magnesium Level 1.9 1.8-2.4 MG/DL Total Bilirubin 0.3 0.1-1.0 MG/DL Aspartate Amino Transf (AST/SGOT) 20 5-34 U/L Alanine Aminotransferase (ALT/SGPT) 30 0-55 U/L Alkaline Phosphatase 91 40-136 U/L Total Protein 7.0 6.4-8.2 GM/DL Albumin 4.2 3.2-4.5 GM/DL TSH [place] Testing 3.22 0.35-4.94 UIU/ML Salicylates Level < 5.0 L 5.0-20.0 MG/DL Urine Opiates Screen NEGATIVE NEGATIVE Urine Oxycodone Screen NEGATIVE NEGATIVE Urine Methadone Screen NEGATIVE NEGATIVE Urine Propoxyphene Screen NEGATIVE NEGATIVE Acetaminophen Level < 10 L 10-30 UG/ML Urine Barbiturates Screen NEGATIVE NEGATIVE Ur Tricyclic Antidepressants Screen NEGATIVE NEGATIVE Urine Phencyclidine Screen NEGATIVE NEGATIVE Urine Amphetamines Screen NEGATIVE NEGATIVE Urine Methamphetamines Screen NEGATIVE NEGATIVE Urine Benzodiazepines Screen NEGATIVE NEGATIVE Urine Cocaine Screen NEGATIVE NEGATIVE Urine Cannabinoids Screen NEGATIVE NEGATIVE Serum Alcohol < 10 <10 MG/DL Glucometer 352 H 70-110 MG/DL (JOSH LOPES MD) My Orders Orders - JOSH LOPES MD General/Regular (12/13/17 Breakfast) Ekg Tracing (12/13/17 11:14) General/Regular (12/13/17 Lunch) (JOSH LOPES MD) Medications Given in ED Current Medications Medications Dose Ordered Sig/Cuauhtemoc Route Start Time Stop Time Status Last Admin Dose Admin Sodium Chloride 1,000 ml @ 0 mls/hr Q0M ONCE IV 12/13/17 03:17 12/13/17 03:20 DC 12/13/17 03:35 1,000 MLS/HR (JOSH LOPES MD) Vital Signs/I&O 12/13/17 03:10 Temp 98.0 Pulse 109 Resp 20 B/P (MAP) 130/86 (101) Pulse Ox 97 O2 Delivery Room Air (JOSH LOPES MD) Blood Pressure Mean: 101 Progress Progress Note : Time: 06:24 Progress Note Patient received a liter of IV fluids. Workup is essentially unremarkable. Staff is currently working on securing a bed at a psychiatric unit. Care of this patient is being transferred to Dr. Lopes at this time. (SEYMOUR MUNOZ MD) Progress Note : Progress Note 820 a.m. I assumed care of the patient at change of shift from Dr. Simental. We're in the process of finding a psych admission for the patient. 2 p.m. The patient after multiple phone calls by the nurses was transferred to [facility] psych services. The patient was accepted in transfer by Dr. Foster. Patient will go by ambulance. Transfer papers were completed. (JOSH LOPES MD) Initial ECG Impression Date: Dec 13, 2017 Initial ECG Impression Time: 03:22 Initial ECG Rate: 88 Initial ECG Rhythm: Normal Sinus Initial ECG Intervals: Normal Initial ECG Impression: Normal Comment Normal sinus rhythm with no ST elevation or depression. Normal intervals or axis deviation. (SEYMOUR MUNOZ MD) Departure Impression Primary Impression: Suicidal ideation Disposition: 65 XFER TO PSYCH HOSP/UNIT Condition: Unchanged Transfer Time Spoke to Accepting Phy: 14:10 Transfer Progress Notes Patient was transferred to [facility] to Dr. Foster. Transfer Time: 14:10 Transfer Facility: [facility] Method of Transfer: EMS (JOSH LOPES MD) Departure-Patient Inst. Referrals: [facility] (PCP/Family) Primary Care Physician SEYMOUR MNUOZ MD Dec 13, 2017 06:19 JOSH LOPES MD Dec 13, 2017 08:21
[2017-12-13 06:31] LABS: SALICYLATE < 5.0 MG/DL (5.0-20.0)
[2017-12-13 06:38] LABS: ACETAMINOPHEN < 10 UG/ML (10-30)
[2017-12-13] MEDS ORDERED: NS IV 1000 ML 1,000 ML ONE (14:06)
[2017-12-13] MEDS ORDERED: inSUlin (REGULAR) HUMAN 1 UNIT/0.01 ML (CHARGE PER UNIT) IV ONE (14:45)
[2017-12-13 15:57] VITALS: BP 97/54
[2017-12-13] MEDS ORDERED: inSUlin ASPART (NovoLOG) 1 UNIT/0.01 ML (CHARGE PER UNIT) SC SCH (16:00)
[2017-12-22] MEDS ORDERED: FLUO20CA25 PO (10:15)
[2017-12-22] MEDS ORDERED: SIMV20TA3 PO (10:15)
[2017-12-22] MEDS ORDERED: INSU100V6 SC (10:15)
== END 2017-12-13 15:57 ==
LOC: EDUNIT# 03:05 → ER 03:07
DX: R45.851 Suicidal ideations (principal); E78.00 Pure hypercholesterolemia, unspecified; I10 Essential (primary) hypertension; E10.9 Type 1 diabetes mellitus without complications; F41.9 Anxiety disorder, unspecified; F31.9 Bipolar disorder, unspecified; F20.9 Schizophrenia, unspecified; K21.9 Gastro-esophageal reflux disease without esophagitis; Z87.19 Personal history of other diseases of the digestive system; Z90.89 Acquired absence of other organs; Z91.5 Personal history of self-harm; Z88.1 Allergy status to other antibiotic agents
CPT/HCPCS: 36415; 80053; 80306; 80320; 80329; 81000; 82962; 83735; 84443; 85025; 85610; 85730; 93005; 96361; 96372; 96374

== ENCOUNTER 2017-12-29 21:31 | Emergency (ER) | payer MEDICAID ==
[~2017-12-29] VITALS: Ht 170.2 cm; Wt 79.0 kg
[~2017-12-29 21:31] MED LIST changes: +FLUO20CA25 PO; +INSU100V6 SC; +SIMV20TA3 PO
--- OUTSIDE RECORDS SUMMARY | 2017-12-29 21:38 | XMS REPORT | Encounter Summary ---
Author Author [facility] Organization [facility] Address Unknown Phone Unavailable Care Team Providers Care Christian Science Healer Name Role Phone No Pcp, Na PCP Unavailable Encounter Details Date Type Department Care Team Description 12/19/2017 Pharmacy Visit [facility] [address] [place] [address] Social History Tobacco Use Types Packs/Day Years [...]
--- OUTSIDE RECORDS SUMMARY | 2017-12-29 21:38 | XMS REPORT | Encounter Summary ---
Author Author [facility] Organization [facility] Address Unknown Phone Unavailable Care Team Providers Care Band Tier Name Role Phone No Pcp, Na PCP Unavailable Encounter Details Date Type Department Care Team Description 12/18/2017 Pharmacy Visit [facility] [address] [place] [address] Social History Tobacco Use Types Packs/Day Years [...]
--- OUTSIDE RECORDS SUMMARY | 2017-12-29 21:38 | XMS REPORT | Encounter Summary ---
Author Author [facility] Organization [facility] Address Unknown Phone Unavailable Care Team Providers Care Military Personnel Specialist Name Role Phone No Pcp, Na PCP Unavailable Encounter Details Date Type Department Care Team Description 12/09/2017 Pharmacy Visit [facility] [address] [place] [id number] Social History Tobacco Use Types Packs/Day Years [...]
--- OUTSIDE RECORDS SUMMARY | 2017-12-29 21:38 | XMS REPORT | Clinical Summary ---
Author Author [facility] Organization [facility] Address Unknown Phone Unavailable Care Team Providers Care Spot Billing Clerk Name Role Phone No Pcp, Na PCP Unavailable Source Comments Some departments are not documenting in the electronic medical record. If you do not see the information that you expected, contact Release of Information in the Health Information Management department at [phone] for further assistance in locating additional records.[facility] Allergies Active Allergy Reactions Severity Noted [...] 0 Active mg tablet bedtime daily. 18 carvedilol (COREG) 6.25 Take 1 tablet by [...] Active (PROTONIX) 40 mg tablet daily. 18 lisinopril (PRINIVIL; Take 1 tablet by mouth 30 tablet 2 11/28/19 Discontin ZESTRIL) 5 mg tablet daily. 18 18 ued insulin aspart U-100 Inject 10 Units under the 11/28/19 12/10/19 Discontin (NOVOLOG FLEXPEN) 100 skin three times daily 18 18 ued unit/mL injection PEN with meals. carvedilol (COREG) 3.125 Take 2 tablets by mouth 60 tablet 3 11/28/19 12/10/19 Discontin mg tablet twice daily. Take with [...] clavulanate Take 1 tablet by mouth 0 05/31/20 06/12/20 Discontin (AUGMENTIN) 875/125 mg twice daily with meals 18 18 ued tablet for 3 doses. Take with food. paliperidone palmitate(+) Inject 1 mL into the 1 mL 0 12/17/1912/16 (INVEGA SUSTENNA) 156 muscle once for 1 dose. 18 18 mg/1 mL syrg injection Due 12/16/17 Active Problems Problem Noted Date Suicide attempt ([facility]) 11/27/2017 Streptococcal pneumonia ([facility]) 11/24/2017 Type 1 diabetes mellitus with complication ([facility]) 11/21/2017 Tylenol overdose 11/21/2017 Schizoaffective disorder, depressive type ([facility]) 11/21/2017 Acute combined systolic and diastolic heart failure ([facility]) 11/21/2017 Acute encephalopathy 11/21/2017 Liver injury 11/21/2017 Resolved Problems Problem Noted Date Resolved Date Acute pancreatitis 11/24/2017 11/27/2017 Diabetic ketoacidosis associated with type 1 diabetes mellitus ([facility]) 201711/27/2017 Shock ([facility]) 11/21/2017 11/27/2017 On mechanically assisted ventilation ([facility]) 11/21/2017 11/27/2017 NORMA (acute kidney injury) ([facility]) 11/21/2017 11/27/2017 Encounters Date Type Specialty Care Team Description 12/28/2017 Pharmacy Visit 12/19/2017 Pharmacy Visit 12/18/2017 Pharmacy Visit 12/09/2017 Pharmacy Visit 12/09/2017 Pharmacy Visit 11/27/2017 [facility] Psychiatry Gabriel Stover MD Suicide attempt ([facility]) - Encounter 12/09/2017 11/22/2017 Procedure Pass 11/21/2017 [facility] Henri Sainz MD Type 1 diabetes mellitus - Encounter Keith Souza MD with complication ([facility]) 11/27/2017 Pedro Mendez MD Dobler, Stephanie, MD [...] MG/DL Specimen Performing Laboratory MAIN LAB [address] [place] [address] * LIVER FUNCTION PANEL (12/07/2017 7:31 AM) [...] Specimen Performing Laboratory Blood MAIN LAB [address] [place] [address] * TELEMETRY STRIPS-SCAN (12/01/2017 2:05 PM) Narrative [...] <7%. Specimen Performing Laboratory Blood MAIN LAB [address] [place] [address] * LIPID PROFILE (11/29/2017 11:21 AM) Only [...] mg/dL. Specimen Performing Laboratory Blood MAIN LAB [address] [place] [address] * PROTIME INR (PT) (11/27/2017 4:35 AM) Only the most recent of 7 results within the time period is included. Component Value Ref Range INR 1.0 0.8 - 1.2 Specimen Performing Laboratory Blood MAIN LAB [address] [place] [address] * CBC AND DIFF (11/27/2017 4:35 AM) [...] K/UL Specimen Performing Laboratory Blood MAIN LAB [address] [place] [address] * PHOSPHORUS (11/27/2017 4:35 AM) Only the most recent of 15 results within the time period is included. Component Value Ref Range Phosphorus 3.3 2.0 - 4.0 MG/DL Specimen Performing Laboratory Blood MAIN LAB [address] [place], [place] [id number] * MAGNESIUM (11/27/2017 4:35 AM) Only the most recent of 11 results within the time period is included. Component Value Ref Range Magnesium 1.9 1.6 - 2.6 mg/dL Specimen Performing Laboratory Blood MAIN LAB [address] [place] [address] * COMPREHENSIVE METABOLIC PANEL (11/27/2017 4:35 AM) [...] Specimen Performing Laboratory Blood MAIN LAB [address] [place] [address] * ECG-SCAN (11/26/2017 4:50 PM) Narrative Ordered by an unspecified provider. * ECG-SCAN (11/26/2017 4:50 PM) Narrative Ordered by an unspecified provider. * IGG SUBCLASSES (11/26/2017 5:11 AM) Component Value Ref Range Total IgG 426 (L) Comment: Reference range: [id number] Unit: mg/dL [facility] IgG Subclasses #1 308 (L) Comment: Reference range: [id number] Unit: mg/dL [facility] IgG Subclasses #2 91 (L) MG/DL Comment: Reference range: [id number] [facility] IgG Subclasses #3 14.0 (L) Comment: Reference range: 18.5nw868.0 Unit: mg/dL [facility] IgG Subclasses #4 14.6 Comment: Reference range: 2.0op639.0 Unit: mg/dL [facility] Specimen Performing Laboratory Blood REFERENCE LAB * BNP (B-TYPE NATRIURETIC PEPTI) (11/25/2017 3:40 AM) Component Value Ref Range B Type Natriuretic 458.0 (H) 0 - 100 PG/ML Peptide Specimen Performing Laboratory Blood MAIN LAB [address] [place] [address] * ACETAMINOPHEN LEVEL (11/24/2017 3:40 AM) Only the most recent of 5 results within the time period is included. Component Value Ref Range Acetaminophen <10.0 <20.1 MCG/ML Specimen Performing Laboratory Blood MAIN LAB [address] [place] [address] * C DIFFICILE BY PCR (11/24/2017 1:35 AM) Component Value Ref Range Battery Name C DIFFICILE PCR Specimen Description FECES Special Requests NONE C. Difficile Toxin B PCR NEGATIVE-wait 7 days to repeat test Report Status FINAL 11/24/2017 Specimen Performing Laboratory Feces MAIN LAB [address] [place] [address] * URINE COLLECTION (11/23/2017 2:00 PM) Component Value Ref Range Collection Period, Urine 24.0 Volume, Urine 3,624 MLS Specimen Performing Laboratory [facility] MAIN LAB [address] [place] [address] * COPPER-URINE 24 HR (11/23/2017 2:00 PM) Component Value Ref Range Copper, 24 HR 93 (H) Comment: Reference range: <=60 Unit: mcg/24 h [facility], [address] [place] [address] Collection Period, Urine 24 Comment: Unit: h [facility], [address] [place] [address] Volume, Urine 3,624 Comment: Unit: mL ADDITIONAL INFORMATION This test was developed and its performance characteristics determined by [facility] in a manner consistent with CLIA requirements. This test has not been cleared or approved by the U.S. Food and Drug Administration. [facility], [address] [place] [address] Specimen Performing Laboratory Urine REFERENCE LAB * [...] Performing Laboratory Blood [facility] MAIN LAB [address] [place] [address] * FACTOR 5 ASSAY (11/23/2017 3:11 AM) Only the most recent of 3 results within the time period is included. Component Value Ref Range Factor 5 164 (H) 50 - 150 % Specimen Performing Laboratory Blood [facility] MAIN LAB [address] [place] [address] * LIPASE (11/23/2017 3:11 AM) Only the most recent of 3 results within the time period is included. Component Value Ref Range Lipase 269 (H) 11 - 82 U/L Specimen Performing Laboratory [facility] MAIN LAB [address] [place] [address] * AMMONIA (11/23/2017 3:11 AM) Only the most recent of 3 results within the time period is included. Component Value Ref Range Ammonia 32 9 - 35 MCMOL/L Specimen Performing Laboratory Blood [facility] MAIN LAB [address] [place] [address] * TROPONIN-I (11/22/2017 7:34 PM) Only the most recent of 6 results within the time period is included. Component Value Ref Range Troponin-I 0.26 (H) 0.0 - 0.05 NG/ML Specimen Performing Laboratory Blood [facility] MAIN LAB [address] [place] [address] * CT ABD/PELV W CONTRAST (11/22/2017 2:18 [...] Sat-Arterial 94.3 (L) 95 - 99 % [id number] 18.0 (L) 21 - 28 MMOL/L Specimen Performing Laboratory Blood, arterial - Blood MAIN LAB [address] [place] [address] * O2 SATURATION, CENTRAL VENOUS (11/21/2017 1:21 PM) Component Value Ref Range O2 Sat, Central Venous 77.4 % Specimen Performing Laboratory Blood MAIN LAB [address] [place] [address] * LACTIC ACID (BG - RAPID LACTATE) (11/21/2017 1:21 PM) Only the most recent of 2 results within the time period is included. Component Value Ref Range Lactic Acid,BG 1.1 0.5 - 2.0 MMOL/L Specimen Performing Laboratory MAIN LAB [address] [place] [address] * 2-D + DOPPLER ECHOCARDIOGRAM (11/21/2017 10:37 [...] 3.1 - 3.7 cm CV ECHO PV IC DESIGNER CUSTOM ELICEO Mayo ([id number]) Bubbles and Definity LV mass 111.14 96 - 200 g RWT 0.44 <=0.42 TV rest pulmonary artery 31 mmHg pressure Right Heart Systolic TDI 0.086 m/s S' Cardiology Ultrasound Siemens [id number] Machine Left Ventricle Mass Index 58.49 50 [...] Performing Laboratory Tracheal Aspirate MAIN LAB [address] [place] [address] * CULTURE-RESP,LOWER W/SENSITIVITY (11/21/2017 8:24 AM) Component [...] STREPTOCOCCUS PNEUMONIAE Specimen Performing Laboratory Tracheal Aspirate [facility] MAIN LAB [address] [place] [address] Organism Antibiotic Method Susceptibility Heavy growth Penicillin [...] to verify the correct patient, procedure, equipment, support technician and site/side marked as required. Preparation: Patient [...] Performing Laboratory Blood [facility] MAIN LAB [address] [place] [address] * CT HEAD WO CONTRAST (11/21/2017 6:16 [...] Specimen Performing Laboratory Blood MAIN LAB [address] [place] [id number] * CHEST SINGLE VIEW (11/21/2017 2:13 AM) [...] the diaphragm and tip not visualized in [id number]. Endotracheal tube projects at the level of [...] the diaphragm and tip not visualized in [id number]. Endotracheal tube projects at the level of [...] LABEL Specimen Performing Laboratory Urine MAIN LAB [address] [place], [place] [id number] * TEG WITH KAOLIN (11/21/2017 2:00 AM) [...] NEG-NEG Specimen Performing Laboratory Urine MAIN LAB [address] [place], [place] [id number] * URINALYSIS DIPSTICK (11/21/2017 2:00 AM) Component Value Ref Range Color,UA YELLOW Turbidity,UA CLEAR CLEAR-CLEAR Specific [place]-Urine 1.040 (H) 1.003 - 1.035 pH,UA 5.0 5.0 - 8.0 Protein,UA 1+ (A) NEG-NEG Glucose,UA 1+ (A) NEG-NEG Ketones,UA 1+ (A) NEG-NEG Bilirubin,UA POS (A) NEG-NEG Blood,UA NEG NEG-NEG Urobilinogen,UA NORMAL NORM-NORMAL Nitrite,UA NEG NEG-NEG Leukocytes,UA NEG NEG-NEG Specimen Performing Laboratory Urine MAIN LAB [address] [place] [address] * PHENCYCLIDINES-URINE RANDOM (11/21/2017 2:00 AM) Component Value Ref Range Phencyclidine (PCP) NEG NEG-NEG Comment: RESULTS WERE OBTAINED BY IMMUNOASSAY AND ARE PRESUMPTIVE ONLY. POSITIVE INDICATES THE PRESENCE OF SUBSTANCE WITH CHARACTERISTICS SIMILAR TO DRUG-DRUG CLASS OR METABOLITE IN CONC. EQUAL TO OR EXCEEDING VALUES LISTED. PHENCYCLIDINE (PCP)25 NG/ML Specimen Performing Laboratory Urine [facility] [address] [place] [address] * OPIATES-URINE RANDOM (11/21/2017 2:00 AM) Component Value Ref Range Opiates-Urine NEG NEG-NEG Comment: RESULTS WERE OBTAINED BY IMMUNOASSAY AND ARE PRESUMPTIVE ONLY. POSITIVE INDICATES THE PRESENCE OF SUBSTANCE WITH CHARACTERISTICS SIMILAR TO DRUG-DRUG CLASS OR METABOLITE IN CONC. EQUAL TO OR EXCEEDING VALUES LISTED. [id number] NG/ML Specimen Performing Laboratory Urine [facility] LAB [address] [place] [address] * COCAINE-URINE RANDOM (11/21/2017 2:00 AM) Component Value Ref Range Cocaine-Urine NEG NEG-NEG Comment: RESULTS WERE OBTAINED BY IMMUNOASSAY AND ARE PRESUMPTIVE ONLY. POSITIVE INDICATES THE PRESENCE OF SUBSTANCE WITH CHARACTERISTICS SIMILAR TO DRUG-DRUG CLASS OR METABOLITE IN CONC. EQUAL TO OR EXCEEDING VALUES LISTED. COCAINE 300 NG/ML Specimen Performing Laboratory Urine [address] [address] * CANNABINOIDS-URINE RANDOM (11/21/2017 2:00 AM) Component Value Ref Range THC NEG NEG-NEG Comment: RESULTS WERE OBTAINED BY IMMUNOASSAY AND ARE PRESUMPTIVE ONLY. POSITIVE INDICATES THE PRESENCE OF SUBSTANCE WITH CHARACTERISTICS SIMILAR TO DRUG-DRUG CLASS OR METABOLITE IN CONC. EQUAL TO OR EXCEEDING VALUES LISTED. [id number] NG/ML Specimen Performing Laboratory Urine [address] [address] * BENZODIAZEPINES-URINE RANDOM (11/21/2017 2:00 AM) Component Value Ref Range Benzodiazepines POS (A) NEG-NEG Comment: RESULTS WERE OBTAINED BY IMMUNOASSAY AND ARE PRESUMPTIVE ONLY. POSITIVE INDICATES THE PRESENCE OF SUBSTANCE WITH CHARACTERISTICS SIMILAR TO DRUG-DRUG CLASS OR METABOLITE IN CONC. EQUAL TO OR EXCEEDING VALUES LISTED. BENZODIAZEPINES 200 NG/ML Specimen Performing Laboratory Urine [facility] LAB [address] [place] [address] * BARBITURATES-URINE RANDOM (11/21/2017 2:00 AM) Component Value Ref Range Barbiturates,Urine NEG NEG-NEG Comment: RESULTS WERE OBTAINED BY IMMUNOASSAY AND ARE PRESUMPTIVE ONLY. POSITIVE INDICATES THE PRESENCE OF SUBSTANCE WITH CHARACTERISTICS SIMILAR TO DRUG-DRUG CLASS OR METABOLITE IN CONC. EQUAL TO OR EXCEEDING VALUES LISTED. [id number] NG/ML Specimen Performing Laboratory Urine [facility] [address] [place] [address] * AMPHETAMINES-URINE RANDOM (11/21/2017 2:00 AM) Component Value Ref Range Amphetamines NEG NEG-NEG Comment: RESULTS WERE OBTAINED BY IMMUNOASSAY AND ARE PRESUMPTIVE ONLY. POSITIVE INDICATES THE PRESENCE OF SUBSTANCE WITH CHARACTERISTICS SIMILAR TO DRUG-DRUG CLASS OR METABOLITE IN CONC. EQUAL TO OR EXCEEDING VALUES LISTED. AMPHETAMINES 1000 NG/ML Specimen Performing Laboratory Urine MAIN LAB [address] [place] [address] * HEPATITIS A IGG (11/21/2017 1:55 AM) Component Value Ref Range Hepatitis A IGG NEG Note: Test type and methodology has changed.The [facility] lab has discontinued the test for Total Hep A Immunoglobulin.This test has been replaced with more specific testing.The tests for Hep A IgG and Hep A IgM are both now available and can be ordered. Specimen Performing Laboratory Blood [facility] LAB [address] [place] [address] * IRON + BINDING CAPACITY + %SAT+ FERRITIN (11/21/2017 1:55 AM) Component Value Ref Range Iron 64 50 - 185 MCG/DL Iron Binding-TIBC 289 270 - 380 MCG/DL % Saturation 22 (L) 28 - 42 % Ferritin 404 (H) 30 - 300 NG/ML Specimen Performing Laboratory Blood MAIN LAB [address] [place] [address] * HIV-1/2 ANTIGEN/ANTIBODY SCREEN (11/21/2017 1:55 AM) Component Value Ref Range HIV 1 and 2 AG AB Screen NEG NEG-NEG Specimen Performing Laboratory Blood [facility] LAB [address] [place] [address] * TSH WITH FREE T4 REFLEX (11/21/2017 1:55 AM) Component Value Ref Range TSH 1.070 0.35 - 5.00 MCU/ML Specimen Performing Laboratory Blood [facility] LAB [address] [place] [address] * BETA HYDROXYBUTYRATE (KETONES) (11/21/2017 1:55 AM) Component Value Ref Range Beta Hydroxybutyrate 0.5 (H) <0.3 MMOL/L Comment: Beta hydroxybutyrate (BOHB) is the most abundant ketone (78%), followed by acetoacetate (20%) and acetone (2%).Measurement BOHB is recommended to assess ketones in DKA. Expected BOHB Results for DKA: Initial presentation high/increasing During treatment decreasing Resolved decreasing/normal Specimen Performing Laboratory MAIN LAB [address] [place] [address] * ABO/RH(D) (11/21/2017 1:55 AM) Component Value Ref Range ABO/RH(D) A POS Specimen Performing Laboratory Blood [facility] LAB [address] [place], [place] [address] * TOTAL THYROXINE T4 (11/21/2017 1:55 AM) Component Value Ref Range T4 (Total) 5.3 (L) 6.1 - 12.3 MCG/DL Specimen Performing Laboratory Blood MAIN LAB [address] [place] [address] * HSV I/II GLYCOPROTEIN G AB (11/21/2017 1:55 AM) Component Value Ref Range HSV Type 1 IgG NEG NEG-NEG HSV Type 2 IgG NEG NEG-NEG Specimen Performing Laboratory Blood [facility] LAB [address] [place] [address] * HEPATITIS C AB (11/21/2017 1:55 AM) Component Value Ref Range Anti HCV NEG NEG-NEG Specimen Performing Laboratory Blood [facility] [address] [place] [address] * HEPATITIS B CORE IGM AB (11/21/2017 1:55 AM) Component Value Ref Range Anti HBc IgM NEG NEG-NEG Specimen Performing Laboratory Blood [facility] [address] [place] [address] * HEPATITIS C VIRAL LOAD PCR QUANT (11/21/2017 1:55 AM) Component Value Ref Range Hepatitis C PCR HCV RNA Not Detected, <12 IU/mL <12 IU/ML Quantitative Comment: The test method detects HCV viral load using the Rosario RealTime assay. Please correlate results with the clinical status of the patient. Log 10 HCV <1.08 <1.08 IU/mL Specimen Performing Laboratory Blood [facility] [address] [place] [address] * HEPATITIS B SURFACE AG (11/21/2017 1:55 AM) Component Value Ref Range HBsAg NEG NEG-NEG Specimen Performing Laboratory Blood [facility] LAB [address] [place] [address] * GGTP (11/21/2017 1:55 AM) Component Value Ref Range GGTP 40 9 - 64 U/L Specimen Performing Laboratory Blood MAIN LAB [address] [place] [address] * NADEEM PORTER PANEL(EBV) (11/21/2017 1:55 AM) Component Value Ref Range EBV Capsid IgG POS EBV Nuclear Ag,Ab POS EBV Early Ag,Ab NEG EBV Capsid IgM NEG NEG-NEG Specimen Performing Laboratory Blood MAIN LAB [address] [place] [address] * CMV AB IGM (11/21/2017 1:55 AM) Component Value Ref Range CMV, IgM NEG NEG-NEG Specimen Performing Laboratory Blood MAIN LAB [address] [place] [address] * CMV AB IGG (11/21/2017 1:55 AM) Component Value Ref Range CMV, IgG POS Specimen Performing Laboratory Blood MAIN LAB [address] [place] [address] * CERULOPLASMIN (11/21/2017 1:55 AM) Component Value Ref Range Ceruloplasmin 15.6 (L) 20.0 - 60.0 mg/dL Specimen Performing Laboratory Blood MAIN LAB [address] [place] [address] * ANTI-SMOOTH MUSCLE AB (11/21/2017 1:55 AM) Component Value Ref Range Anti-Smooth Muscle Screen <20 <20 TITER Specimen Performing Laboratory Blood MAIN LAB [address] [place] [address] * ANTI-MITOCHONDRIAL ANTIBODY (11/21/2017 1:55 AM) Component Value Ref Range Anti-Mitochondrial Screen <20 <20 TITER Specimen Performing Laboratory Blood MAIN LAB [address] [place] [address] * ALPHA FETO PROTEIN (AFP) (11/21/2017 1:55 AM) Component Value Ref Range Alpha Feto Protein 4.0 0.0 - 15.0 NG/ML Specimen Performing Laboratory Blood MAIN LAB [address] [place] [address] * ALPHA 1 ANTITRYPSIN PHENOTYPE (11/21/2017 1:55 AM) Component Value Ref Range Alpha 1 Anti-Trypsin 92 (L) Comment: Reference range: 369ct139 Unit: mg/dL [facility] Alpha 1 Antitrypsin M Phenotype Unit: bands An unidentified allele is also noted. [facility] Specimen Performing Laboratory Blood REFERENCE LAB * PTT (APTT) (11/21/2017 1:55 AM) Component Value Ref Range APTT 22.6 21.0 - 39.0 SEC Specimen Performing Laboratory Blood MAIN LAB [address] [place] [address] * FIBRINOGEN (11/21/2017 1:55 AM) Component Value Ref Range Fibrinogen 222 200 - 400 MG/DL Specimen Performing Laboratory Blood MAIN LAB [address] [place] [address] * VARICELLA ZOSTER AB IGG (11/21/2017 1:55 AM) Component Value Ref Range Varcella Zoster IgG POS Specimen Performing Laboratory Blood MAIN LAB [address] [place] [address] * ANTI-NUCLEAR ANTIBODY(DANIKA) (11/21/2017 1:55 AM) Component Value Ref Range DANIKA Screen <80 <80 TITER Specimen Performing Laboratory Blood MAIN LAB [address] [place] [address] * OSMOLALITY (11/21/2017 1:55 AM) Component Value Ref Range Osmolality 301 280 - 307 MOSMOL/KG Specimen Performing Laboratory MAIN LAB [address] [place] [address] * LDH-LACTATE DEHYDROGENASE (11/21/2017 1:55 AM) Component Value Ref Range Lactate Dehydrogenase 830 (H) 100 - 210 U/L Specimen Performing Laboratory Blood MAIN LAB [address] [place] [address] * AMYLASE (11/21/2017 1:55 AM) Component Value Ref Range Amylase 588 (H) 24 - 100 U/L Specimen Performing Laboratory Blood MAIN LAB [address] [place] [address] * ALCOHOL LEVEL (11/21/2017 1:55 AM) Component Value Ref Range Alcohol <10 MG/DL Specimen Performing Laboratory Blood MAIN LAB [address] [place] [address] from Last 3 Months
--- OUTSIDE RECORDS SUMMARY | 2017-12-29 21:38 | XMS REPORT | Encounter Summary ---
Author Author [facility] Organization [facility] Address Unknown Phone Unavailable Care Team Providers Care Band Log Mill And Carriage Operator Name Role Phone No Pcp, Na PCP Unavailable Encounter Details Date Type Department Care Team Description 12/09/2017 Pharmacy Visit [facility] [address] [place] [address] Social History Tobacco Use Types Packs/Day Years [...]
--- OUTSIDE RECORDS SUMMARY | 2017-12-29 21:38 | XMS REPORT | Encounter Summary ---
Author Author [facility] Organization [facility] Address Unknown Phone Unavailable Care Team Providers Care Nurse Practitioner Physician Assistant Name Role Phone No Pcp, Na PCP Unavailable Encounter Details Date Type Department Care Team Description 12/28/[address] [facility] [address] [place] [address] Social History Tobacco Use Types Packs/Day Years [...]
--- OUTSIDE RECORDS SUMMARY | 2017-12-29 21:39 | XMS REPORT | Encounter Summary ---
Author Author [facility] Organization [facility] Address Unknown Phone Unavailable Care Team Providers Care Supervisor Firearms Name Role Phone No Pcp, Na PCP Unavailable Reason for Visit * Auth/Cert Status Reason Specialty Diagnoses / Referred By Referred To Procedures Contact Contact Diagnoses MDD Suicide attempt (HCC) Encounter Details Date Type Department Care Team Description 11/27/2017 Hospital Psych Adult Gabriel Stover MD Suicide attempt (HCC ) - Encounter [address] [facility] 12/09/2017 [place] [address] [place] [address] [place] [address] [phone] Social History Tobacco Use Types Packs/Day Years [...] or AVH. He will follow up at [facility] in [place], [place]. Patient will receive his second injection [...] or concerns regarding your hospital stay. Call [phone] Discharging attending physician: GALINDO DE LEON [[id number]] Regular Diet You have no dietary restriction. [...] Unknown Referring physicians: Additional provider(s): [facility] Facility/Provider Facility/Provider in this encounter Discharge Instructions * Discharge Instr - Case Management - Brianda Alonso - 11/28/2017 9:45 AM CDT Case Management Discharge Instructions: Resume care at [facility], phone: , with your medication provider, Katty Grover APRN. Appointment Information: Next appointment: Katty Grover APRN on 12/11/17 @ 11:20 p.m. Other Follow Up Information: National Suicide Prevention Lifeline: . We can all help prevent suicide. The Lifeline provides 20/01, free and confidential support for people in distress, prevention and crisis resources for you or your loved ones, and best practices for professionals. [facility] [address] [facility] [address] [facility] 01/05/18 with MACIEJ Nevarez, for diabetes Other [...] 8 tablets in [address] Take 1 tablet by mouth 30 tablet 1 12/09/2017 (PROTONIX) 40 mg tablet daily. traZODone (DESYREL) 100 Take 1 tablet by mouth at 30 tablet 0 2017 mg tablet bedtime daily. vitamins, B complex tab Take 1 tablet by mouth 11/27/2017 daily. paliperidone palmitate(+) Inject 1 mL into the 1 mL 0 12/16/2017 (INVEGA SUSTENNA) 156 muscle once for 1 dose. mg/1 mL syrg injection Due 12/16/17 as of this encounter Progress Notes * Estrellita Garcia RN - 12/09/2017 3:28 PM CDT Psychiatry Insurance Review Insurance Company: [facility] Insurance/Medicaid ID #: [id number] Reference /Authorization # [id number] human projectile Ronn, completed DC form and medication list faxed to [phone] d/c on 12/09.LCD 12/08 * Kisha Lara [...] elevated - Noted patient was on a 7971-8973 Diabetic diet ( which may be too much for his current size). - Changes diet to 6151-3271 (12/08) Recent history of acute liver injury [...] Psych. Recommendation: - Continue Diabetic diet to 3217-8648 - Resume URBAN REDEVELOPMENT SPECIALIST regimen at discharge. Patient discussed with Dr. Collins Thank you for the consult, we will continue to follow. Please direct initial questions to primary team Medicine Consult team can be reached at pager [phone] Kisha Lara APRN Internal Medicine Consults Subjective [...] he should be okay to resume his URBAN REDEVELOPMENT SPECIALIST regimen discharge, with instructions to follow-up [...] he should be okay to resume his URBAN REDEVELOPMENT SPECIALIST regimen discharge, with instructions to follow-up [...] his matamoros and disability check from the [employer]. Patient count all the money in front [...] home today. Follow up will be at [facility], he will get his second Paliperidone injection of 156mg IM within one week. 1. Schizoaffective Disorder, Depressed Type PLAN: -Continue lexapro 10mg PO QD for mood - Paliperidone injection 234mg IM today; follow up in 1 week for 156mg IM - Patient with changes to insulin regimen and antihypertensives -Follow up at [facility] after discharge. -Appreciate assistance with Medicaid transport Disposition: Discharge home today Seen and discussed with Dr. De Leon SUBJECTIVE Mr. Bertrand reports feeling "good" today. He reports he is not currently having thoughts to hurt himself. Denies HI/AVH. He feels comfortable going home today. He has been to [facility] in the past and plans to follow [...] elevated - Noted patient was on a 8064-7114 Diabetic diet ( which may be too [...] - Change diet to Diabetic diet to 1808-6328 ( ordered) - As hisblood glucose at 8 AM was 85, Continue Current Insulin management plan - Continue to monitor before meals at bedtime Patient seen and discussed with Dr. Collins Thank you for the consult, we will continue to follow. Please direct initial questions to primary team Medicine Consult team can be reached at pager [phone] Kisha Lara APRN Internal Medicine Consults Subjective [...] hours) POC Glucose (Download): (!) 155 (12/08/17 5562) Radiology and other Diagnostics Review: No pertinent [...] recommend lowering his diet to go to 9995-2944 cece and continuing the current insulin regimen. [...] recreation group as possible. Therapist: Poornima Correa, VESSEL TRAFFIC OFFICER Date: 12/08/2017 * Najma Lanza - 12/08/2017 [...] with team in rounds. Provider: Najma Lanza Sternman * Estrellita Garcia RN - 12/08/2017 1:34 PM CDT Psychiatry Insurance Review Insurance Company: [facility] Insurance/Medicaid ID #: [id number] Reference /Authorization # [id number] human projectile Ronn, completed live concurrent review Approved 1 additional day, 12/08 Expect d/c on 12/09. Next review on 12/09/17 with Ronn [phone] * Shavon Mckeon MD - 12/08/2017 11:21 [...] recs -LFTs wnl 12/07/17 -Follow up at [facility] after discharge. -DM: MDCF and [facility] Disposition: [...] rescheduled for follow-up on 12/11/17@ 11:20pm, at [facility], contact # [phone] * Maggy Drew - 12/08/2017 10:01 AM CDT This patient has a follow-up scheduled on 12/09/17 at [facility] @ 11:40am with Katty Hutchison, contact with [...] medication will occur as follows: Outpatient Location: [facility] Next Administration Date: within 1 week [...] concentration: intact per interview Cognition: intact Language: Nauruan Fund of knowledge/vocabulary: full Focused Physical Exam: [...] and between 8am and 3pm on weekends [phone]. Otherwise, page the resident physician in radiology customs and border protection officer. Staff name: Sonam Cordero DO Date: 12/07/2017 [...] needs further assistance, the service should page [phone] (24 hours a day/7 days a week) [...] noted Pulses: 2+ and symmetric, all extremities MATERIALS HANDLING COORDINATOR:alert and oriented to PPT, No focal [...] results found. MD Kip Martinez Abebe MD Building Maintenance Worker Department of Internal Medicine, Hospitalist [phone] * Florecita Lucio RN - 12/07/2017 9:13 [...] voice plan or paranoid content to this play writer. Will continue to monitor for safety. Provisional: [...] concentration: intact per interview Cognition: intact Language: Nauruan Fund of knowledge/vocabulary: full Focused Physical Exam: [...] and between 8am and 3pm on weekends [phone]. Otherwise, page the resident physician in radiology customs and border protection officer. Staff name: Sonam Cordero, Date: 12/06/2017 * [...] an inpatient basis. Provider: Julius Omer, Ph.D., [phone] * Jess Kothari - 12/05/2017 1:45 PM CDT Psychiatry Insurance Review Insurance Company: [facility] Insurance/Medicaid ID #: [id number] Reference /Authorization # [id number] human projectile Ronn, completed live concurrent review Approved 3 additional days. 12/05 to 12/07. Expect d/c on FridayDecember 08. Next review on 12/08/17 with Ronn [phone] * Renetta Martin OT - 12/05/2017 9:00 [...] community based resources Therapist: [place] [id number] Date: 12/05/2017 * Shavon Mckeon MD - [...] an inpatient basis. Provider: Julius Omer, Ph.D., [phone] * Najma Lanza - 12/04/2017 3:35 PM [...] discuss with team in rounds. Provider:Najma Lanza student services representative * Poornima Correa - 12/04/2017 12:58 PM [...] recreation group as possible. Therapist: Poornima Correa, VESSEL TRAFFIC OFFICER Date: 12/04/2017 * Colby Roman - 12/04/2017 9:33 AM CDT Reason for Visit: there was a consult for the patient but it disappeared. Pt is suicidal and he wanted to talk with the manager poker. Pt lives in [facility], has a son and a daughter. He [...] now he has a lot of problems. Juanita/Zoroastrianism: Anabaptist, pt used to go to a yarsani restoration with his Marlen when she was alive, it seems that his juanita was contingent upon his when she was alive, manager poker feels like the yarsani juanita is a part of his that he holds on to not because he actually believes it but that reminds him of his . Pt said he belives in God but when manager poker asked about the devil pt said that [...] The fact that he asked for a manager poker visit is significant. Support System: NONE Interventions/Plan: manager poker met with the pt in his room [...] him. Pt wanted to talk with a manager poker and be heard, manager poker provided a compassionate ear and a platform to bounce off his thoughts. Visit was ended with praying "our father " pt was very much receptive to the manager poker visit, was engaging and genuinely interested in what the manager poker had to say. Pager: [phone] PCU: 7 The spiritual care team is available as needed, 20/01, through the campus switchboard ([phone]). For immediate response, please page [phone]. For a response within 24 hours, please submit an order in O2 for a manager poker consult or call the administrative voicemail at [phone]. * Shavon Mckeon MD - 12/04/2017 9:15 [...] with plan to go on vacation in [place] to visit a relative. Will need continued [...] to reduce stress and anxiety, 2nd group- [employer] or card games. Plan: Continue to attend therapeutic recreation group as possible. Therapist: Poornima Correa, VESSEL TRAFFIC OFFICER Date: 12/03/2017 * Julius Omer, PhD - [...] an inpatient basis. Provider: Julius Omer, Ph.D., [phone] * Chelle Silverio, RN - 12/03/2017 1:36 PM CDT Psychiatry Insurance Review No. 1 Insurance Company: [facility] Insurance/Medicaid ID #: [id number] Reference /Authorization # [id number] human projectile Ronn, completed live concurrent review Approved 2 days and 12/04 LCD 12/04/17 Next review on 12/05/17 with Ronn [phone] * Jena Ramsey, OT - 12/03/2017 9:00 [...] CDT Chart check completed. * Florecita Guillen [facility] - 12/02/2017 5:27 PM CDT Symptom Management group - 1463 - 3198 - Pt attended group and was oriented [...] quiet, cooperative, pleasant. Activity was: Pet therapy, Handseeing Information team game. Plan: Continue to attend therapeutic recreation group as possible. Therapist: Poornima Correa, VESSEL TRAFFIC OFFICER Date: 12/02/2017 * Shavon Mckeon MD - [...] an inpatient basis. Provider: Julius Omer, Ph.D., [phone] * Cammy Maurer, ELICEO - 12/01/2017 11:14 [...] recreation group as possible. Therapist: Poornima Correa, VESSEL TRAFFIC OFFICER Date: 11/30/2017 * Prudence Hawkins RN - [...] and concentration: appropriate for conversation Language: fluent, Nauruan speaking Fund of knowledge and vocabulary: appropriate [...] concentration: intact per interview Cognition: intact Language: Nauruan Fund of knowledge/vocabulary: full Gait: Normal gait [...] Staff name: Gabriel Stover MD Date: 11/29/2017 * Marisol Hand [...] community based resources Therapist: [place] [id number] Date: 11/28/2017 * Florecita Bean, OT - [...] 8:35 AM CDT Chart check complete * Mairsol Hand RN - 11/27/2017 8:56 PM CDT [...] / financial difficulties):None Problems with legal authorities (alf, perpetration, assaults, destruction of property, etc):None Previous Psychiatric History Past psychiatric care (previous hospitalizations / outpatient therapy, etc): Pt states has previously been hospitalized in [place] and [facility]. Psychiatric disorders in family:Pt states that cousin [...] original. PSYCHIATRY HISTORY & PHYSICAL EXAM Room/Bed: US0460/01 Admission Date: 11/27/2017 LOS: 1 day ASSESSMENT [...] not taking for past month 4. Continue captain's assistant Insulin regimen and BP meds 5. Continue captain's assistant vitamins for supplementation 6. Will continue to [...] with his medications since being discharged from [facility] in [place] in August 2017. He does not know [...] 40s Outpatient Provider: None; previously followed in [place] Diagnoses: Schizophrenia Psychiatric Hospitalizations: estimates 10+ [...] SOCIAL AND DEVELOPMENTAL HISTORY Patient llives in [place], [place] in a house with his mother [...] span and concentration: intact Cognition: intact Language: Nauruan Fund of knowledge and vocabulary: average PHYSICAL [...] needs further assistance, the service should page [phone] (24 hours a day/7 days a week) to discuss the case. __ History of Present Illness: Mr. Bertrand is a 47-year-old male with history of diabetes mellitus in diabetic ketoacidosis, fundoplication, bipolar/schizophrenia, depression with history of suicidal ideation who initially presented to [facility] on 524 for change in mental status [...] noted Pulses: 2+ and symmetric, all extremities MATERIALS HANDLING COORDINATOR:alert and oriented to PPT, no focal [...] Abebe MD Department of Internal Medicine, Hospitalist [phone] in this encounter Miscellaneous Notes * Case Mgmt DC Plan - Mervat Monique - 12/09/2017 2:19 PM CDT WELDING PANTOGRAPH MACHINE OPERATOR note: Discharge to home today has been arranged with [facility] [employer]. Patient will be picked up today sometime between 3995-4097 and transported to residence. Trip reference # [id number]. If you have questions regarding this ride you may call [employer] at . Mervat Monique Technical Lead Central Office Maintainer * Case Mgmt DC Plan - Monique Alonson - 12/09/2017 2:02 PM CDT Formatting of this note may be different from the original. Case Management Progress Note NAME:Krunal Bertrand :1969 AGE: 47 y.o. ADMISSION DATE: 11/27/2017 DAYS ADMITTED: LOS: 12 days Todays Date: 12/09/2017 Plan DC today, to home in [place], [place]. Patient reports to at 1400 that he has no ride home; Mervat SANDOVAL, is setting up transport via [employer] [place] Medicaid. [facility] up care [facility] with [facility]. Interventions ? Support Support: Pt/Family Updates re:POC or DC Plan AGUEDA met with patient 1:1 re: his DC planning. ? Info or Referral Information or Referral to Community Resources: Mental Health Resources [facility]. ? Discharge Planning Discharge Planning: Independent/Assisted Living, Transportation Arrangements and/or Resources AGUEDA has requested that Mervat SANDOVAL, schedule ride home, via patient's [facility] Medicaid. ? Medication Needs Medication Needs: No Needs Identified ? Financial Financial: No Needs Identified ? Legal Legal: No Needs Identified ? Other Other/None: No needs identified Disposition ? Expected Discharge Date Expected Discharge Date: 12/09/17 ? Transportation Does the patient need discharge transport arranged?: No Transportation Name, Phone and Availability #1: Lanie Betancourt, phone: [phone] Does the patient use Medicaid Transportation?: No ? Next Level of Care (Acute Psych discharges only) Facility/Provider Name: [facility], Katty Grover APRN Facility/Provider Facility/Provider Patient Authorization signed: N/A ? Discharge Disposition Home Durable Medical Equipment No service has been selected for the patient. Destination No service has been selected for the patient. Home Care No service has been selected for the patient. Dialysis/Infusion No service has been selected for the patient. Brianda Alonso, [facility], [facility] Reactor Technician Pg. *[phone] * Psychiatry Summary of Care - Shavon [...] studies pending at discharge: Department of Psychiatry [phone] Advanced Care Plan Advance directives: Healthcare Directive: No, patient does not have a healthcare directive Would patient like to fill out a (a new) Healthcare Directive?: No, patient declined Psych Advance Directive (Psych unit only): No, patient does not have a Psych Advance Directive Reason for not providing advance directive if applicable: N/A Contact Information/Plan for Follow-Up2 20/01 Contact info: Department of Psychiatry [phone] Future Appointments Future Appointments Date Time Provider Department Center 02/13/2018 1:30 PM Kwaku Montiel MD [facility] Primary Care Physician: No Pcp, Na PCP [...] Your Medications These medications were sent to [facility] ([facility] ) [address] [place] [address]. [place] [address], [facility] [address] Hours: M-F 7am-9pm Sat & Sun 9am-5pm [...] Management Discharge Instructions: Resume care at [facility], phone: , with your medication provider, Katty Grover APRN. Appointment Information: Next appointment: Katty Grover APRN on 12/11/17 @ 11:20 p.m. Other Follow Up Information: National Suicide Prevention Lifeline: . We can all help prevent suicide. The [facility] provides 20/01, free and confidential support for [...] and beginning hospital discharge planning. Patient Address/Phone [address] [facility] [facility] [phone] (home) Emergency Contact Extended Emergency Contact Information Primary Emergency Contact: Lanie Bertrand [facility] Mobile Relation: Mother Secondary Emergency Contact: Concetta Bertrand [facility] Mobile Relation: Daughter Healthcare Directive Healthcare Directive: [...] Secondary Insurance: No insurance Additional Coverage: RX [facility] Medicaid, policy #: [id number] ? Source of Income Source Of Income: SSDI ? Financial Assistance Needed? N/A Psychosocial Needs ? Mental Health Agency name: Patient follows at the [facility] at [address] [place], [place]. . Patient has an appointment for [...] PCP None. ? Pharmacy [facility] ([facility]) [address] [facility]. [place] [address] [facility] [address] ? Durable Medical Equipment Durable Medical Equipment [...] ? Outpatient Therapy PT: No OT: No YOUTH SERVICES SPECIALIST: No ? Fdc Facility/Senior Living SNF: No NH: No ? Inpatient Rehab IPR: No ? Long-Term Acute Care Hospital LTACH: No ? Acute Hospital Stay Acute Hospital Stay: Yes Was patient's stay within the last 30 days?: Yes When did patient receive care?: 10/2017 Name of hospital: [facility] Unit Readmission Code Group: 3. [...] * Patient anticipated to resume care with [facility] in [place]; follow up appointment has been set up with Dr. Katty Grover for after DC. Optional Assessment Information (e.g. Family background, sexual functioning / significant sexual history, etc.) Legal issues - Denies Strengths - * Patient is capable of independent living * Patient has healthcare insurance * Patient has some family support * Patient is seeking help voluntarily. Brianda Alonso, [facility], [facility] Reactor Technician Pg. *[phone] * Care Plan - Cammy Maurer RN [...] Psychiatry Insurance Review No. 1 Insurance Company: [facility] Insurance/Medicaid ID #: [id number] Reference /Authorization # [id number] human projectile Ronn, completed oral review Approved 2 days [...] from the original. Case Management Progress Note NAME:Kruanl Bertrand :1969 AGE: 47 y.o. ADMISSION DATE: [...] Pt stated he used to work at [employer]. Pt reports he has been hospitalized at [facility] in [place], [place], as well as [place]. Pt is paranoid, thinking the Mob is going to get him and kill his daughter if she shares any information. Pt wants to kill himself. Per chart review, Pt follows at the [facility] at [address], [place]. . Sw contacted the [facility]. Pt has an appointment for DM on 01/05/18 with MACIEJ Nevarez. Pt has not seen his psychiatrist, Dr. Shanae Stewart, for 1 year. Sw scheduled a follow up appointment with Dr. Katty Grover December 09 at 11:40am. Case Managemtent services are not through this office. Sw left a voicemail with [facility] to inquire if pt CM is through their office. Address: [address]. . Primary Sw will continue to follow [...] 1:41 PM CDT Phone call with Jimmy (Healthcare Management Consultant): Jimmy has known Krunal for 3 years [...] Price - 11/28/2017 12:23 PM CDT Jimmy (black ash worker) - [phone] His mom reported she never sees him [...] Psychiatry Insurance Review No. 1 Insurance Company: [facility] Insurance/Medicaid ID #: [id number] Reference /Authorization # [id number] human projectile Ronn Approved 4 inpatient days 11/27 to 11/30 Next review on Friday, 12/01 * Care Coordination-Inpatient - Jess Kothari - 11/28/2017 10:57 AM CDT Psychiatry Insurance Review No. 1 Insurance Company: [facility] Insurance/Medicaid ID #: [id number] Reference /Authorization # p Admission review faxed to Darleen Brody at [phone] * Med Student H&P - Roddy Price [...] in good health SH: He lives in [place] in a house with his mom [...] Range Color,UA YELLOW Turbidity,UA CLEAR CLEAR-CLEAR Specific [place]-Urine 1.040 (H) 1.003 - 1.035 pH,UA 5.0 [...] Sat-Arterial 99.2 (H) 95 - 99 % Uzixbejxwgg-TUQ-Xlf 17.8 (L) 21 - 28 MMOL/L Point of Care Testing: (Last 24 hours): Glucose: (!) 203 (11/21/17 6655) POC Glucose (Download): (!) 329 (11/21/17 5105) Assessment/Plan: Most likely schizoaffective disorder with MDD. [...] be of further assistance, please call [facility] [phone] in this encounter Plan of Treatment Not on fileas of this encounter Results * POC GLUCOSE (12/09/2017 12:12 PM) Component Value Ref Range Glucose, POC 132 (H) 70 - 100 MG/DL Specimen Performing Laboratory [facility] [address] [place] [address] * POC GLUCOSE (12/09/2017 7:37 AM) Component Value Ref Range Glucose, POC 272 (H) 70 - 100 MG/DL Specimen Performing Laboratory [facility] [address] [place] [address] * POC GLUCOSE (12/08/2017 7:53 PM) Component Value Ref Range Glucose, POC 258 (H) 70 - 100 MG/DL Specimen Performing Laboratory [address] [address] * POC GLUCOSE (12/08/2017 4:53 PM) Component Value Ref Range Glucose, POC 155 (H) 70 - 100 MG/DL Specimen Performing Laboratory [address] [address] * POC GLUCOSE (12/08/2017 11:50 AM) Component Value Ref Range Glucose, POC 193 (H) 70 - 100 MG/DL Specimen Performing Laboratory [address] [address] * POC GLUCOSE (12/08/2017 7:30 AM) Component Value Ref Range Glucose, POC 85 70 - 100 MG/DL Specimen Performing Laboratory [address] [address] * POC GLUCOSE (12/07/2017 7:45 PM) Component Value Ref Range Glucose, POC 187 (H) 70 - 100 MG/DL Specimen Performing Laboratory [facility] [address] [place] [address] * POC GLUCOSE (12/07/2017 4:39 PM) Component Value Ref Range Glucose, POC 327 (H) 70 - 100 MG/DL Specimen Performing Laboratory [facility] [address] [place] [address] * POC GLUCOSE (12/07/2017 11:55 AM) Component Value Ref Range Glucose, POC 246 (H) 70 - 100 MG/DL Specimen Performing Laboratory [address] [address] * POC GLUCOSE (12/07/2017 7:49 AM) Component Value Ref Range Glucose, POC 112 (H) 70 - 100 MG/DL Specimen Performing Laboratory [facility] [address] [place] [id number] * LIVER FUNCTION PANEL (12/07/2017 7:31 AM) Component Value Ref Range Total Bilirubin 0.3 0.3 - 1.2 MG/DL Bilirubin, Direct <0.1 <0.4 MG/DL Albumin 3.8 3.5 - 5.0 G/DL Alk Phosphatase 76 25 - 110 U/L AST (SGOT) 19 7 - 40 U/L ALT (SGPT) 34 7 - 56 U/L Total Protein 6.7 6.0 - 8.0 G/DL Specimen Performing Laboratory Blood MAIN [facility] [address] [place] [address] 28760 * POC GLUCOSE (12/06/2017 7:52 PM) Component Value Ref Range Glucose, POC 139 (H) 70 - 100 MG/DL Specimen Performing Laboratory [facility] [address] [place] [address] 77684 * POC GLUCOSE (12/06/2017 5:03 PM) Component Value Ref Range Glucose, POC 306 (H) 70 - 100 MG/DL Specimen Performing Laboratory [facility] [address] [place] [address] 17701 * LIVER FUNCTION PANEL (12/06/2017 12:18 PM) Component Value Ref Range Total Bilirubin 0.3 0.3 - 1.2 MG/DL Bilirubin, Direct <0.1 <0.4 MG/DL Albumin 3.9 3.5 - 5.0 G/DL Alk Phosphatase 81 25 - 110 U/L AST (SGOT) 18 7 - 40 U/L ALT (SGPT) 36 7 - 56 U/L Total Protein 6.7 6.0 - 8.0 G/DL Specimen Performing Laboratory [facility] [address] [place] [address] 98303 * POC GLUCOSE (12/06/2017 11:35 AM) Component Value Ref Range Glucose, POC 233 (H) 70 - 100 MG/DL Specimen Performing Laboratory [facility] [address] [place] [address] 72495 * POC GLUCOSE (12/06/2017 8:00 AM) Component Value Ref Range Glucose, POC 90 70 - 100 MG/DL Specimen Performing Laboratory [facility] [address] [place] [address] 18710 * POC GLUCOSE (12/05/2017 7:42 PM) Component Value Ref Range Glucose, POC 206 (H) 70 - 100 MG/DL Specimen Performing Laboratory [facility] [address] [place] [address] 55146 * POC GLUCOSE (12/05/2017 4:29 PM) Component Value Ref Range Glucose, POC 300 (H) 70 - 100 MG/DL Specimen Performing Laboratory [facility] [address] [place] [address] 84220 * POC GLUCOSE (12/05/2017 12:29 PM) Component Value Ref Range Glucose, POC 252 (H) 70 - 100 MG/DL Specimen Performing Laboratory [facility] [address] [place] [address] 95150 * POC GLUCOSE (12/05/2017 8:00 AM) Component Value Ref Range Glucose, POC 93 70 - 100 MG/DL Specimen Performing Laboratory [facility] [address] [place] [address] 77620 * POC GLUCOSE (12/05/2017 1:21 AM) Component Value Ref Range Glucose, POC 203 (H) 70 - 100 MG/DL Specimen Performing Laboratory [facility] [address] [place] [address] 92333 * POC GLUCOSE (12/04/2017 5:44 PM) Component Value Ref Range Glucose, POC 385 (H) 70 - 100 MG/DL Specimen Performing Laboratory [facility] [address] [place] [address] 85051 * POC GLUCOSE (12/04/2017 11:51 AM) Component Value Ref Range Glucose, POC 196 (H) 70 - 100 MG/DL Specimen Performing Laboratory [facility] [address] [place] [address] 67682 * POC GLUCOSE (12/04/2017 7:54 AM) Component Value Ref Range Glucose, POC 385 (H) 70 - 100 MG/DL Specimen Performing Laboratory [facility] [address] [place] [address] 02110 * POC GLUCOSE (12/03/2017 7:15 PM) Component Value Ref Range Glucose, POC 302 (H) 70 - 100 MG/DL Specimen Performing Laboratory [facility] [address] [place] [address] 46171 * POC GLUCOSE (12/03/2017 4:48 PM) Component Value Ref Range Glucose, POC 207 (H) 70 - 100 MG/DL Specimen Performing Laboratory [facility] [address] [place] [address] 33632 * POC GLUCOSE (12/03/2017 11:45 AM) Component Value Ref Range Glucose, POC 270 (H) 70 - 100 MG/DL Specimen Performing Laboratory [facility] [address] [place] [address] 20805 * POC GLUCOSE (12/03/2017 7:51 AM) Component Value Ref Range Glucose, POC 131 (H) 70 - 100 MG/DL Specimen Performing Laboratory [facility] [address] [place] [address] 29150 * POC GLUCOSE (12/02/2017 8:04 PM) Component Value Ref Range Glucose, POC 135 (H) 70 - 100 MG/DL Specimen Performing Laboratory [address] [address] * POC GLUCOSE (12/02/2017 4:58 PM) Component Value Ref Range Glucose, POC 240 (H) 70 - 100 MG/DL Specimen Performing Laboratory [address] [address] * POC GLUCOSE (12/02/2017 12:06 PM) Component Value Ref Range Glucose, POC 304 (H) 70 - 100 MG/DL Specimen Performing Laboratory [address] [address] * POC GLUCOSE (12/02/2017 7:56 AM) Component Value Ref Range Glucose, POC 374 (H) 70 - 100 MG/DL Specimen Performing Laboratory [address] [address] * POC GLUCOSE (12/01/2017 7:57 PM) Component Value Ref Range Glucose, POC 189 (H) 70 - 100 MG/DL Specimen Performing Laboratory [address] [address] * POC GLUCOSE (12/01/2017 4:52 PM) Component Value Ref Range Glucose, POC 230 (H) 70 - 100 MG/DL Specimen Performing Laboratory [facility] [address] [place] [address] 86637 * POC GLUCOSE (12/01/2017 11:58 AM) Component Value Ref Range Glucose, POC 269 (H) 70 - 100 MG/DL Specimen Performing Laboratory [facility] [address] [place] [address] 14587 * POC GLUCOSE (12/01/2017 8:45 AM) Component Value Ref Range Glucose, POC 264 (H) 70 - 100 MG/DL Specimen Performing Laboratory [facility] [address] [place] [address] 11317 * POC GLUCOSE (12/01/2017 7:59 AM) Component Value Ref Range Glucose, POC 81 70 - 100 MG/DL Specimen Performing Laboratory [facility] [address] [place] [address] 87755 * POC GLUCOSE (12/01/2017 7:37 AM) Component Value Ref Range Glucose, POC 59 (L) 70 - 100 MG/DL Specimen Performing Laboratory [facility] [address] [place] [address] 13928 * POC GLUCOSE (11/30/2017 7:54 PM) Component Value Ref Range Glucose, POC 158 (H) 70 - 100 MG/DL Specimen Performing Laboratory [address] [address] * POC GLUCOSE (11/30/2017 4:55 PM) Component Value Ref Range Glucose, POC 250 (H) 70 - 100 MG/DL Specimen Performing Laboratory [facility] [address] [place] [address] 80522 * POC GLUCOSE (11/30/2017 11:48 AM) Component Value Ref Range Glucose, POC 310 (H) 70 - 100 MG/DL Specimen Performing Laboratory [address] [address] * POC GLUCOSE (11/30/2017 8:31 AM) Component Value Ref Range Glucose, POC 119 (H) 70 - 100 MG/DL Specimen Performing Laboratory [facility] [address] [place] [address] 31088 * POC GLUCOSE (11/30/2017 8:04 AM) Component Value Ref Range Glucose, POC 65 (L) 70 - 100 MG/DL Specimen Performing Laboratory [facility] [address] [place] [address] 36560 * POC GLUCOSE (11/29/2017 8:34 PM) Component Value Ref Range Glucose, POC 166 (H) 70 - 100 MG/DL Specimen Performing Laboratory [facility] [address] [place] [address] 70053 * POC GLUCOSE (11/29/2017 4:52 PM) Component Value Ref Range Glucose, POC 320 (H) 70 - 100 MG/DL Specimen Performing Laboratory [facility] [address] [place] [address] 37377 * POC GLUCOSE (11/29/2017 12:03 PM) Component Value Ref Range Glucose, POC 367 (H) 70 - 100 MG/DL Specimen Performing Laboratory [facility] [address] [place] [address] 91464 * LIPID PROFILE (11/29/2017 11:21 AM) Component [...] than 130 mg/dL. Specimen Performing Laboratory Blood [facility] [address] [place] [address] 54144 * HEMOGLOBIN A1C (11/29/2017 11:21 AM) Component Value Ref Range Hemoglobin A1C 9.4 (H) 4.0 - 6.0 % Comment: The ADA recommends that most patients with type 1 and type 2 diabetes maintain an A1c level <7%. Specimen Performing Laboratory Blood [facility] [address] [place] [address] 01255 * POC GLUCOSE (11/29/2017 8:02 AM) Component Value Ref Range Glucose, POC 83 70 - 100 MG/DL Specimen Performing Laboratory [facility] [address] [place] [address] 56186 * POC GLUCOSE (11/28/2017 7:55 PM) Component Value Ref Range Glucose, POC 136 (H) 70 - 100 MG/DL Specimen Performing Laboratory [facility] [address] [place] [address] 69566 * POC GLUCOSE (11/28/2017 4:58 PM) Component Value Ref Range Glucose, POC 269 (H) 70 - 100 MG/DL Specimen Performing Laboratory [facility] [address] [place] [address] 85741 * POC GLUCOSE (11/28/2017 11:59 AM) Component Value Ref Range Glucose, POC 210 (H) 70 - 100 MG/DL Specimen Performing Laboratory [facility] [address] [place] [address] 42228 * POC GLUCOSE (11/28/2017 8:03 AM) Component Value Ref Range Glucose, POC 67 (L) 70 - 100 MG/DL Specimen Performing Laboratory [facility] [address] [place] [address] * POC GLUCOSE (11/27/2017 7:55 PM) Component Value Ref Range Glucose, POC 255 (H) 70 - 100 MG/DL Specimen Performing Laboratory [facility] [address] [place] [address] * POC GLUCOSE (11/27/2017 5:36 PM) Component Value Ref Range Glucose, POC 272 (H) 70 - 100 MG/DL Specimen Performing Laboratory [facility] [address] [place] [address] in this encounter Visit Diagnoses Diagnosis Schizoaffective disorder, depressive type (HCC) - Primary Schizoaffective disorder, unspecified condition Schizophrenia, unspecified type (HCC) Uncontrolled type 1 diabetes mellitus without complication (HCC) Suicide attempt (HCC) Suicide and self-inflicted injury by unspecified means Admitting Diagnoses Diagnosis MDD Suicide attempt ([facility]) Administered Medications Medication Order MAR Action Action [...]
--- OUTSIDE RECORDS SUMMARY | 2017-12-29 21:43 | XMS REPORT | Encounter Summary ---
Author Author [facility] Organization [facility] Address Unknown Phone Unavailable Care Team Providers Care Cuff Slitter Name Role Phone No Pcp, Na PCP Unavailable Encounter Details Date Type Department Care Team Description 11/22/2017 Procedure Pass Renal/Organ Transplant [address] [facility]. [place], [place] [id number] Social History Tobacco Use Types Packs/Day Years Used Date Current Every Day Smoker Cigarettes Sex Assigned at Date Recorded Not on file as of this encounter Plan of Treatment Not on fileas of this encounter Visit Diagnoses Not on filein this encounter
--- OUTSIDE RECORDS SUMMARY | 2017-12-29 21:43 | XMS REPORT | Encounter Summary ---
Author Author [facility] Organization [facility] Address Unknown Phone Unavailable Care Team Providers Care Ceo And President Name Role Phone No Pcp, Na PCP Unavailable Encounter Details Date Type Department Care Team Description 11/21/2017 Procedure Pass Renal/Organ Transplant [address] [facility]. [place], [place] [id number] Social History Tobacco Use Types Packs/Day Years Used Date Current Every Day Smoker Cigarettes Sex Assigned at Date Recorded Not on file as of this encounter Plan of Treatment Not on fileas of this encounter Visit Diagnoses Not on filein this encounter
--- OUTSIDE RECORDS SUMMARY | 2017-12-29 21:43 | XMS REPORT | Encounter Summary ---
Author Author [facility] Organization [facility] Address Unknown Phone Unavailable Care Team Providers Care Field Placement Director Name Role Phone No Pcp, Na PCP Unavailable Reason for Visit * Auth/Cert Status Reason Specialty Diagnoses / Referred By Referred To Procedures Contact Contact Diagnoses tylenol overdose DKA Tylenol overdose Encounter Details Date Type Department Care Team Description 11/21/2017 [facility] Renal/Organ Transplant Courtney Sainz MD Type 1 diabetes mellitus - Encounter [address] with complication ( HCC) 11/27/2017 [place] [address] [place] [address] [phone] L Keith wiseman MD [address] [place] [address] [phone] B Pedro trevino MD [address] [place] [address] [phone] Deloris Cameron MD [address] [place] [address] [phone] Social History Tobacco Use Types Packs/Day Years [...] 11/27/2017 Attending Physician: Deloris Barrera MD Service: [facility] 4337 Physician Summary completed by: Deloris Barrera [...] depression w/ hx SI. He presented to [facility] on 11/20 for AMS &was found to [...] AB.8/13/164/2 - A1c 11/21 - 10.1 - DRILLER HELPER Lantus 30U QHS, Aspart 25U with meals. [...] mid 100s at time of discharge - primary special educator consulted Acute Pancreatitis - Lipase elevated [...] suicide attempt from Tylenol overdose - Stopped DRILLER HELPER fluoxitine &haldol - Started on Geodon - [...] or concerns regarding your hospital stay. Call [phone] Discharging attending physician: DELORIS BARRERA [[id number]] Diabetic Diet You should eat between 1600 and 2000 calories per day. This is equal to 60g ( grams) of carbohydrates per meal, and 30g of carbohydrates for a bedtime snack. If you have questions about your diet after you go home, you can call a dietitian at [phone]. Current Discharge Medication List START taking these [...] 11/27/2017 12/09/2017 ZESTRIL) 5 mg tablet daily. paliperidone palmitate(+) Inject 1 mL into [...] as followup planning. Deloris Barrera MD Pager [phone] * Kwaku Montiel MD - 11/27/2017 11:49 AM CDT Formatting of this note may be different from the original. Cardiology Progress Note Admission Date: 11/21/2017 ATT: Have oxktdzmw4m with bassem and agree with assessment and [...] 81 mg daily. Patient evaluatedwith Dr. Dinesh Sinclair MD [id number] Subjective: He feels better today. Denies chest [...] Keiko Waterman - 11/27/2017 9:56 AM CDT Java Web User Interface Developer Note: Admit Date: 11/21/2017 Reason for visit: Java Web User Interface Developer referral (3) Synopsis of visit: Pt said that he does not have a current daisy affiliation, however, he expressed interest in finding a holiness home. Pt said that he went to [employer] as a child and that he and his attended [employer] together. He then talked about his 's from breast cancer about 7 years ago. He said she on . Pt also said that he is "doing better" with grief related to her . Pt said that he has 2 children, ages 25 and 26 years old. He expressed hope that his medical situation would continue to improve. Java Web User Interface Developer listened actively, offering bereavement support in regard to pt's ' s . Based on pt's statement about wanting to find a holiness home, pt offered encouragement that pt finds a holiness that feels "right" for him. Java Web User Interface Developer offered a blessing for pt's healing and assurance of continued prayers. Java Web User Interface Developer will continue to follow for spiritual and emotional support. The spiritual care team is available as needed, 20/01, through the campus switchboard ([phone]). For immediate response, please page [phone]. For a response within 24 hours, please submit an order in O2 for a oxyacetylene cutter consult or call the administrative voicemail at [phone]. Please page or use consult order if patient requests visit. Date/Time: User: Pager: [phone] 11/27/2017 9:56 AM Keiko Waterman * WalpoleMike bakerin, PT - 11/27/2017 9:26 AM CDT [...] Recommendations: None Therapist: Miry[place] [id number] Date: 11/27/2017 * Ta Gr MD - 11/27/2017 8:39 AM CDT Formatting of this note may be different from the original. PSYCHIATRY CONSULTATION PROGRESS NOTE Room/Bed: HV1539/ Admission Date: 11/21/2017 LOS: 6 days Consult [...] between 8am and 3pm on weekends at [phone]. Otherwise, page the vice president talent management automation developer. Subjective: Patient seen today in his room. [...] span and concentration: fair Cognition: fair Language: [employer] of knowledge and vocabulary: appropriate Focused [...] - 100 MG/DL Ta Gr MD Pager [phone] Associated attestation - Maggie Vidales MD - [...] and between 8am and 3pm on weekends [phone]. Otherwise, page the vice president talent management automation developer. Staff name: Maggie Vidales MD Date: 11/27/2017 [...] Patient evaluated with Dr. Dinesh Sinclair MD 7093 Subjective: Received 20 mg IV lasix yesterday [...] 78 (1.1g/kg 70.7kg) Oral Diet Order: Diabetic 7450-4814 Kcal/day (60 g Carb/meal, 30 g Carb/HS [...] consisted of tator tots and a hamburger. DRILLER HELPER, he consumed 3 meals daily but did not count carbs and does not have knowledge of DM diet principles. Glu 64-357mg/dL past 24 hours. A1c 10.1. No n/v issues. Provided DM diet education reviewing carb sources, food groups, [facility] DM menu, balanced meal intake, [...] longer appropriate Carmen Santa RD, LD, CNSC *[facility] office [phone] * Deloris Barrera MD - 11/26/2017 2:05 [...] depression w/ hx SI. He presented to [facility] on 11/20 for AMS & was found [...] AB.8/13/164/2 - A1c 11/21 - 10.1 - DRILLER HELPER Lantus 30U QHS, Aspart 25U with meals - Insulin drip now stopped and back on Lantus 30U QHS. Mild AM hypoglycemia - decrease to Lantus 28U QHS - Advanced diet. Will restart mealtime Aspart - lower dose to 10U given reported issues with hypoglycemia at home along with decreased PO intake - can titrate up as tolerated - LDCF - primary special educator consulted Acute Pancreatitis - Lipase elevated [...] suicide attempt from Tylenol overdose - Holding DRILLER HELPER fluoxitine & haldol - Started on Geodon [...] Pertinent radiology reviewed. Deloris Barrera MD Pager [phone] * Ta Gr MD - 11/26/2017 1:35 PM CDT Formatting of this note may be different from the original. PSYCHIATRY CONSULTATION PROGRESS NOTE Room/Bed: [place] [address] Admission Date: 11/21/2017 LOS: 5 days Consult [...] between 8am and 3pm on weekends at [phone]. Otherwise, page the vice president talent management automation developer. Subjective: Patient seen today in his room. [...] span and concentration: fair Cognition: fair Language: [employer] of knowledge and vocabulary: appropriate Focused [...] 134 (H) 70 - 100 MG/DL Ta Gr MD Pager [phone] Associated attestation - Marlen Lizarraga MD - [...] and between 8am and 3pm on weekends [phone]. Otherwise, page the vice president talent management automation developer. Staff name: Marlen Lizarraga MD Date: 11/26/2017 [...] in functional status. Therapist: Radha Rich OTR/Jl [id number] Date: 11/25/2017 * Deloris Barrera MD - [...] depression w/ hx SI. He presented to [facility] on 11/20 for AMS & was found [...] AB.8/13/164/2 - A1c 11/21 - 10.1 - DRILLER HELPER Lantus 30U QHS, Aspart 25U with meals - Insulin drip now stopped and back on Lantus 30U QHS. Holding mealtime until able to take PO meals; hopefully can advance diet and restart tomorrow - LDCF - primary special educator consulted Acute Pancreatitis - Lipase elevated [...] suicide attempt from Tylenol overdose - Holding DRILLER HELPER fluoxitine & haldol - Zyprexa PRN - [...] Pertinent radiology reviewed. Deloris Barrera MD Pager [phone] * Daniel York MBBS - 11/25/2017 12:09 PM CDT Formatting of this note may be different from the original. General Progress Note Name: Krunal Bertrand Today's Date: 11/25/2017 Admission Date: 11/21/2017 LOS: 4 days Assessment/Plan: Mr. Bertrand is a 47-year-old male with history of type 1 diabetes, major depression,? Bipolar/schizophrenia, history of suicidal ideation who was transferred from [facility] with DKA and acute liver injury/ failure [...] Tylenol near him. Intubated on arrival to [facility] but his encephalopathy is most likely [...] Harris. Daniel York MD Gastroenterology and Hepatology [phone] Subjective Krunal Bertrand is a 47 y.o. [...] to request renewal. Will continue to monitor. (tracking#[id number]) * Deloris Barrera MD - 11/24/2017 12:50 [...] depression w/ hx SI. He presented to [facility] on 11/20 for AMS & was found [...] AB.8/13/164/2 - A1c 11/21 - 10.1 - DRILLER HELPER Lantus 30U QHS, Aspart 25U with meals [...] suicide attempt from Tylenol overdose - Holding DRILLER HELPER fluoxitine & haldol - Zyprexa PRN - [...] Pertinent radiology reviewed. Deloris Barrera MD Pager [phone] * Aurora Archer RN - 11/24/2017 5:39 AM CDT RN sent text page to [employer] pager requesting renewal of CO order for SI. Will continue to monitor. (tracking#[id number]) * Aurora Archer, ELICEO - 11/23/2017 10:22 PM CDT Patient c/o of throat pain and is requesting medication. RN text paged [employer] pager and requested throat spray or throat lozenges. (tracking#[id number]). Will continue to monitor. Patient c/o of abdominal pain 02/06. Patient requesting intervention. RN text [employer] pager requesting a heating pad. (tracking #[id number]) * Praveen Owens MD - 11/23/2017 1:54 PM CDT Formatting of this note may be different from the original. General Progress Note Name: Krunal Bertrand Today's Date: 11/23/2017 Admission Date: 11/21/2017 LOS: 2 days Assessment/Plan: Mr. Bertrand is a 47-year-old male with history of type 1 diabetes, major depression,? Bipolar/schizophrenia, history of suicidal ideation who was transferred from [facility] with DKA and acute liver injury/ failure [...] Tylenol near him. Intubated on arrival to [facility] but his encephalopathy is most likely [...] with Dr. Saul Owens GI fellow Pager [phone] 11/23/2017 1:57 PM Subjective Krunal Bertrand is [...] the original. PSYCHIATRY CONSULTATION PROGRESS NOTE Room/Bed: LP1832/01 Admission Date: 11/21/2017 LOS: 2 days Consult type: Opinion Reason for Consult: Suicidal Ideations Assessment: 1. Suicide attempt 2. Intentional Overdose, Tylenol 3. Schizoaffective Disorder, Bipolar Type Other: 1. Acute Liver Injury 2/2 Tylenol OD 2. Type 1 DM Recommendations: Continue to hold all DRILLER HELPER psychiatric medications in the setting of acute [...] between 8am and 3pm on weekends at [phone]. Otherwise, page the vice president talent management automation developer. Subjective: Patient seen today in his room. [...] 20,000 Units/ sodium bicarbonate 650 mg(#) PRN (Imaging Assistant from Rx) : Allergies: Keflex [cephalexin] and [...] span and concentration: fair Cognition: fair Language: [employer] of knowledge and vocabulary: appropriate Focused [...] depression w/ hx SI. He presented to [facility] on for AMS & was found to [...] unknown intent of tyl OD - hold DRILLER HELPER fluoxitine & haldol - psych consulted, zyprexa [...] tolerate PO Hx fundiplication - on PPI district captain Constipation - miralax and prn zofran ordered RENAL: NORMA resolved - in the setting of DKA/ALI - presumed normal baseline; at OSH Cr 1.9 at OSH & 1.1 on presentation to [facility] - Cr 1.11 -> 0.79-> 0.71 ENDO: DM1, DKA - at OSH: BG >1000, bicarb 2, A & AB.8/13/164/2 - hold DRILLER HELPER aspart 25U TIDAC - a1c 11/21 - [...] status. Mercedes Flores, DO M3 team pager [phone] __ Subjective: Krunal Bertrand is a 47 [...] of suicidal ideation who was transferred from [facility] with DKA and acute liver injury/ failure [...] Tylenol near him. Intubated on arrival to [facility] but his encephalopathy is most likely [...] Hughes. Daniel York MD Gastroenterology and Hepatology [phone] Subjective Krunal Bertrand is a 47 y.o. [...] 20,000 Units/ sodium bicarbonate 650 mg(#) PRN (Imaging Assistant from Rx) Review of Systems: All other [...] O2 Sat-Arterial 98.5 95 - 99 % Bkrpiehsxgc-QTW-Kmd 16.7 (L) 21 - 28 MMOL/L MAGNESIUM [...] O2 Sat-Arterial 96.6 95 - 99 % Zgpuvgeybig-CBV-Tot 16.5 (L) 21 - 28 MMOL/L POC [...] Sat-Arterial 94.3 (L) 95 - 99 % Oulwsruxmpp-PHL-Deq 18.0 (L) 21 - 28 MMOL/L ACETAMINOPHEN [...] Review: Pertinent radiology reviewed. ELVIS Bah Pager [phone] Associated attestation - Ciera Hughes MD - 11/22/2017 2:23 PM CDT ATTESTATION I personally performed the ehaly portions of the E/M visit, discussed case [...] Ceruloplasmin low not atypical in setting of ASSISTED; however, with psychotic features/hx, need to r/u [...] (acute kidney injury) (HCC) Assessment/Plan: Hospital Course: Kruanl Bertrand is a 47 y.o. male with a PMH of: DM1 w/ hx DKA, bipolar/ schizophrenia, depression w/ hx SI. He presented to [facility] on for AMS & was found to [...] unknown intent of tyl OD - hold DRILLER HELPER fluoxitine & haldol - psych consulted Acute [...] for now Hx fundiplication - on PPI district captain Constipation - miralax and prn zofran ordered RENAL: NORMA (improved) - in the setting of DKA/ALI - presumed normal baseline; at OSH Cr 1.9 at OSH & 1.1 on presentation to [facility] - Cr 1.11 -> 0.79-> 0.76 ENDO: DM1, DKA - at OSH: BG >1000, bicarb 2, A & AB.8/13/164/2 - hold DRILLER HELPER aspart 25U TIDAC - a1c 11/21 - [...] MICU. Sandrine Espinoza MD M3 team pager [phone] __ Subjective: Krunal Bertrand is a 47 [...] nac. Keith Souza MD * Harlan Burkett, CROSSBAR FRAME WIRER - 11/21/2017 7:08 AM CDT Formatting of [...] depression w/ hx SI. He presented to [facility] on for AMS & was found to [...] to discuss further when able - hold DRILLER HELPER fluoxitine & haldol Acute Encephalopathy - in [...] bicarb 2, A & AB.8/13/164/2 - hold DRILLER HELPER aspart 25U TIDAC - a1c 11/21 - [...] care. Harlan Burkett APRN Pulm/Critical Care Pager [phone] 11/21/2017 M3 team pager [phone] __ Subjective: Krunal Bertrand is a 47 [...] in this encounter H&P Notes * Mercedes Flores DO - 11/20/2017 10:16 PM CDT Formatting [...] liver injury workup as below Schizophrenia Bipolar -DRILLER HELPER med list includes fluoxitine 20mg and haldol 10mg qhs >Will hold DRILLER HELPER meds for now >will need psychiatric evaluation [...] rifaximin. allergic to rocephin ENDO: *T1DM DKA -DRILLER HELPER regimen is reported as aspart 25U TIDAC [...] Per outside records: first relative Concetta Bertrand: [phone], Lanie Bertrand: [phone] Code Status: Full code by default Patient [...] Range Color,UA YELLOW Turbidity,UA CLEAR CLEAR-CLEAR Specific [place]-Urine 1.040 (H) 1.003 - 1.035 pH,UA 5.0 [...] Sat-Arterial 99.2 (H) 95 - 99 % Twxzjjmuiwu-KOI-Wwa 17.8 (L) 21 - 28 MMOL/L Point [...] He is accepted in transfer from [facility] after presenting there on 11/20/17 morning via [...] monitoring for progression of hepato-, renal-, and KETTLE CHIPPER-toxicity with serial exam and labs (CBC, electrolytes, [...] Patient evaluated with Dr. Dinesh Sinclair MD 3854 Reason for consult: Elevated troponin, decreased LVEF History of Present Illness: Krunal Bertrand is a 47 y.o. male with Type 1 diabetes , schizophrenia/bipolar disorder, depression, tobacco abuse who presented after suicide attempt with tylenol overdose. He initially presented to [facility] in [place] on 11/20 for AMS. He was found [...] intracardiac shunt. 6. No previous echocardiogram for comparison.[id number] * Honey Cook RN - 11/25/2017 9:17 AM CDT Associated Order(s): CONSULT DIABETES NURSE EDUCATOR INPATIENT DIABETES EDUCATION TEAM Clinical Excellence Nursing Practice Reason for Consult: DKA, "Hx DM1 w/ prior DKA admit for DKA, was on inuslin gtt in the ICU now floor status restarted DRILLER HELPER insulin. Please identify any barriers to taking [...] blood sugars fluctuate "up and down". Medication: DRILLER HELPER meds include Lantus 30 units QD and Novolog 25 units TID. Pt reports adherence to this regimen as prescribed. Pt reports he only misses his Novolog if he is not going to eat a meal. Pt reports he receives his insulin from the [facility] in [place] where he sees a provider named Radha, [...] 10.1% and goal of < 7%. Reviewed dedicated intermodal truck driver complications. Social: When asked about obstacles and [...] or concerns. ANGIE Vasquez, BS, RN, CPT Recreation Instructor Office: [phone] Pager: [phone] Diabetes Education Team Pager: [phone] Diabetes Team Office: [phone] * Shavon Mckeon MD - 11/22/2017 2:35 PM CDT Associated Order(s): CONSULT ADULT PSYCHIATRY PHYSICIAN Formatting of this note may be different from the original. PSYCHIATRY CONSULT NOTE Room/Bed: TR8889/01 Admission Date: 11/21/2017 LOS: 1 day Consult type: Opinion Reason for Consult: Suicidal Ideations Assessment: 1. Suicide attempt 2. Intentional Overdose, Tylenol 3. Schizoaffective Disorder, Bipolar Type Other: 1. Acute Liver Injury 2/2 Tylenol OD 2. Type 1 DM Recommendations: Hold all DRILLER HELPER psychiatric medications in the setting of acute [...] between 8am and 3pm on weekends at [phone]. Otherwise, page the vice president talent management automation developer. Chief Concern: The voices made me want to kill myself. History of Present Illness: Krunal Bertrand is a 47 y.o. male with a past psychiatric history of schizoaffective disorder presents for hospitalization due to DKA and Tylenol Overdose. He was obtunded when he was admitted to [facility] and was intubated , but on [...] 20,000 Units/ sodium bicarbonate 650 mg(#) PRN (Imaging Assistant from Rx) : Allergies: Keflex [cephalexin] and [...] span and concentration: fair Cognition: fair Language: [employer] of knowledge and vocabulary: appropriate Focused [...] O2 Sat-Arterial 98.5 95 - 99 % Wrvawdowipj-JGP-Hmy 16.7 (L) 21 - 28 MMOL/L MAGNESIUM [...] O2 Sat-Arterial 96.6 95 - 99 % Nzpxzhkgaku-CZW-Wdz 16.5 (L) 21 - 28 MMOL/L POC [...] Sat-Arterial 94.3 (L) 95 - 99 % Jyxetlemnpn-JSQ-Apj 18.0 (L) 21 - 28 MMOL/L ACETAMINOPHEN [...] of suicidal ideation who was transferred from [facility] with DKA and acute liver injury/ failure [...] Tylenol near him. Intubated on arrival to [facility] but his encephalopathy is most likely [...] if possible with caloric intake based on Hall-Coulters Equation at ideal body weight (caloric requirement [...] Hughes. Daniel York MD Gastroenterology and Hepatology [phone] History of Present Illness: Krunal Bertrand is a 47 y.o. male who was transferred from [facility] where he presented on 20 November with [...] started on NAC and was transferred to [facility] for further care. Patient has a [...] Units/ sodium bicarbonate 650 mg(# ) PRN (Imaging Assistant from Rx) Review of Systems: Review of [...] 11/21/2017 Pertinent radiology reviewed. ELVIS Bah Pager [phone] Associated attestation - Ciera Hughes MD - [...] severe metabolic acidosis pH 6.8 on arrival. ALI/ASSISTED (MS likely multifactorial) improving with INR now [...] 24 Hours Carmen Santa, CARLYN, LD, CNSC *[facility] office [phone] in this encounter Miscellaneous Notes * Case Mgmt DC Plan - Keiko Sams - 11/25/2017 2:43 PM CDT Case Management Admission Assessment NAME:Krunal Bertrand :1969 AGE: 47 y.o. ADMISSION DATE: 11/21/2017 DAYS ADMITTED: LOS: 4 days Todays Date: 11/25/2017 Source of Information: pt and motherLanie [phone] Plan SW anticipates pt to [place] back home via family transport vs. [facility] IP Psych when medically stable. Plan: CM Assessment, Assist PRN with /NCM Services, Discharge Planning for Home Anticipated SW met with pt who confirms diagnosis of Schizophrenia. Pt reports seeing psychiatrist Dr. Bella at [facility] at [address], [place]. Pt denies difficulty accessing medications but states if his CM Jimmy cannot provide transportation, pt misses appt. SW inquired about MH history. Pt states he has been in IP Psych in [place] in the past. Pt is agreeable to [facility] IPR psych if needed. Pt states he does not have Jimmy CHAN's contact information but states SW can call motherLanie. SW called [phone]. Mother confirms pt does not receive HCBS and denied history of HH or placement. Lanie reports she will call back with Jimmy's contact information to facilitate transportation at [place] and continuum of care at [place]. Patient Address/Phone [address] [phone] (home) Emergency Contact Extended Emergency Contact Information Primary [facility] Contact: [facility] [employer] Relation: Mother Secondary Emergency Contact: [facility] [employer] Relation: Daughter Healthcare Directive Healthcare Directive: No, patient does not have a healthcare directive Would patient like to fill out a (a new) Healthcare Directive?: No, patient declined Transportation Does the patient need discharge transport arranged?: No Transportation Name, Phone and Availability #1: pt states mother or CM Jimmy can provide transportation at [place] Does the patient use Medicaid Transportation?: No [...] Financial Resources ? Coverage Primary Insurance: [place] ([place]) Secondary Insurance: No insurance Additional Coverage: RX [...] None, None ? Pharmacy [facility] ([facility]) [address] [place] [address] [facility] [address] ? Durable Medical Equipment Durable Medical Equipment [...] ? Outpatient Therapy PT: No OT: No YARN HAULER: No ? Penitentiary Facility/Longterm SNF: No NH: No ? Inpatient Rehab IPR: No ? Long-Term Acute Care Hospital LTACH: No ? Acute Hospital Stay Acute Hospital Stay: In the past Was patient's stay within the last 30 days?: No -Corrine Sams, [facility] *[phone] * Care Coordination-Inpatient - Mercedes Malave DO - 11/23/2017 11:59 AM CDT 47 y/o male admitted for DKA and acute liver failure will transfer out of MICU to [facility] on the [facility] service. MICU team will page [employer] for checkout. Mercedes Malave DO Internal Medicine PGY-3 Pager [phone] * Case Mgmt DC Plan - Brenden Rosen - 11/21/2017 9:44 AM CDT SW contacted patient's daughter-Concetta. She will be coming to the hospital this afternoon. She is driving from [place], [place]. SW to meet with her to assess once she arrives. Patient is intubated and unable to communicate. 1430: SW attempted to meet with patient's daughter/family. No one at bedside. Brenden Rosen, [facility] [phone] (phone) [phone] (pager) * Critical Results - Rosalinda Bains RN - 11/21/2017 7:31 AM CDT Critical result or procedure called (document test and value, and read back): Phos <1 Time MD/SHINGLER Notified: [id number] MD/SHINGLER Name: Dr. Alexis ARAGON/SHINGLER Response/Orders Given: Currently infusing * Critical Results - Camille Licona RN - 11/21/2017 4:52 AM CDT Critical result or procedure called (document test and value, and read back): Phos < 1 Time MD/SHINGLER Notified: [id number] MD/SHINGLER Name: Aicha ARAGON/SHINGLER Response/Orders Given: Replacement electrolytes ordered. * Procedures [...] verify the correct patient, procedure, equipment, support clerk and site/side marked as required. Preparation: Patient [...] 100 MG/DL Specimen Performing Laboratory MAIN LAB [address] [place] [address] * POC GLUCOSE (11/27/2017 7:12 AM) Component Value Ref Range Glucose, POC 159 (H) 70 - 100 MG/DL Specimen Performing Laboratory MAIN LAB [address] [place], [place] [id number] * PHOSPHORUS (11/27/2017 4:35 AM) Component Value Ref Range Phosphorus 3.3 2.0 - 4.0 MG/DL Specimen Performing Laboratory Blood MAIN LAB [address] [place] [address]357 * MAGNESIUM (11/27/2017 4:35 AM) Component Value Ref Range Magnesium 1.9 1.6 - 2.6 mg/dL Specimen Performing Laboratory Blood MAIN LAB [address] [place] [address] 02985 * COMPREHENSIVE METABOLIC PANEL (11/27/2017 4:35 AM) [...] Specimen Performing Laboratory Blood MAIN LAB [address] [place] [address] 39791 * CBC AND DIFF (11/27/2017 4:35 AM) [...] K/UL Specimen Performing Laboratory Blood MAIN LAB [address] [place] [address] 57758 * PROTIME INR (PT) (11/27/2017 4:35 AM) Component Value Ref Range INR 1.0 0.8 - 1.2 Specimen Performing Laboratory Blood MAIN LAB [address] [place] [address] 93067 * POC GLUCOSE (11/27/2017 3:16 AM) Component Value Ref Range Glucose, POC 198 (H) 70 - 100 MG/DL Specimen Performing Laboratory [facility] [address] [place] [address] 61095 * POC GLUCOSE (11/26/2017 9:00 PM) Component Value Ref Range Glucose, POC 165 (H) 70 - 100 MG/DL Specimen Performing Laboratory [facility] [address] [place] [address] 29347 * POC GLUCOSE (11/26/2017 5:21 PM) Component Value Ref Range Glucose, POC 156 (H) 70 - 100 MG/DL Specimen Performing Laboratory [facility] [address] [place] [address] 00277 * ECG-SCAN (11/26/2017 4:50 PM) Narrative Ordered by an unspecified provider. * ECG-SCAN (11/26/2017 4:50 PM) Narrative Ordered by an unspecified provider. * POC GLUCOSE (11/26/2017 11:43 AM) Component Value Ref Range Glucose, POC 134 (H) 70 - 100 MG/DL Specimen Performing Laboratory [facility] [address] [place] [address] 15043 * POC GLUCOSE (11/26/2017 9:09 AM) Component Value Ref Range Glucose, POC 121 (H) 70 - 100 MG/DL Specimen Performing Laboratory [facility] [address] [place] [address] 87473 * POC GLUCOSE (11/26/2017 7:50 AM) Component Value Ref Range Glucose, POC 64 (L) 70 - 100 MG/DL Specimen Performing Laboratory [facility] [address] [place] [address] 78515 * COMPREHENSIVE METABOLIC PANEL (11/26/2017 5:11 AM) [...] Specimen Performing Laboratory Blood MAIN LAB [address] [place] [address] * CBC AND DIFF (11/26/2017 5:11 AM) [...] Specimen Performing Laboratory Blood MAIN LAB [address] [place] [address] * MAGNESIUM (11/26/2017 5:11 AM) Component Value Ref Range Magnesium 1.7 1.6 - 2.6 mg/dL Specimen Performing Laboratory Blood [facility] MAIN LAB [address] [place] [address] * PHOSPHORUS (11/26/2017 5:11 AM) Component Value Ref Range Phosphorus 2.4 2.0 - 4.0 MG/DL Specimen Performing Laboratory Blood [facility] [address] [place] [address] 32238 * PROTIME INR (PT) (11/26/2017 5:11 AM) Component Value Ref Range INR 1.1 0.8 - 1.2 Specimen Performing Laboratory Blood [facility] [address] [place] [address] 63356 * IGG SUBCLASSES (11/26/2017 5:11 AM) Component Value Ref Range Total IgG 426 (L) Comment: Reference range: [id number] Unit: mg/dL [facility] IgG Subclasses #1 308 (L) Comment: Reference range: [id number] Unit: mg/dL [facility] IgG Subclasses #2 91 (L) MG/DL Comment: Reference range: [id number] [facility] IgG Subclasses #3 14.0 (L) Comment: Reference range: 18.6we625.0 Unit: mg/dL [facility] IgG Subclasses #4 14.6 Comment: Reference range: 2.0ue333.0 Unit: mg/dL [facility] Specimen Performing Laboratory Blood REFERENCE LAB * POC GLUCOSE (11/26/2017 2:55 AM) Component Value Ref Range Glucose, POC 107 (H) 70 - 100 MG/DL Specimen Performing Laboratory [facility] [address] [place] [address] 68610 * POC GLUCOSE (11/25/2017 8:57 PM) Component Value Ref Range Glucose, POC 242 (H) 70 - 100 MG/DL Specimen Performing Laboratory [facility] [address] [place] [address] 85943 * POC GLUCOSE (11/25/2017 5:05 PM) Component Value Ref Range Glucose, POC 337 (H) 70 - 100 MG/DL Specimen Performing Laboratory [facility] [address] [place] [address] 83353 * POC GLUCOSE (11/25/2017 5:01 PM) Component Value Ref Range Glucose, POC 357 (H) 70 - 100 MG/DL Specimen Performing Laboratory [facility] [address] [place] [address] 73090 * POC GLUCOSE (11/25/2017 12:16 PM) Component Value Ref Range Glucose, POC 171 (H) 70 - 100 MG/DL Specimen Performing Laboratory [facility] [address] [place] [address] 58882 * POC GLUCOSE (11/25/2017 7:50 AM) Component Value Ref Range Glucose, POC 99 70 - 100 MG/DL Specimen Performing Laboratory MAIN LAB [address] [place] [address] * COMPREHENSIVE METABOLIC PANEL (11/25/2017 3:40 AM) [...] Specimen Performing Laboratory Blood MAIN LAB [address] [place] [address] * CBC AND DIFF (11/25/2017 3:40 AM) [...] K/UL Specimen Performing Laboratory Blood MAIN LAB [address] [place] [address] 71625 * MAGNESIUM (11/25/2017 3:40 AM) Component Value Ref Range Magnesium 1.6 1.6 - 2.6 mg/dL Specimen Performing Laboratory Blood [facility] [address] [place], [place] [id number] * PHOSPHORUS (11/25/2017 3:40 AM) Component Value Ref Range Phosphorus 2.5 2.0 - 4.0 MG/DL Specimen Performing Laboratory Blood [facility] [address] [place], [place] [id number] * PROTIME INR (PT) (11/25/2017 3:40 AM) Component Value Ref Range INR 1.1 0.8 - 1.2 Specimen Performing Laboratory Blood [facility] [address] [place], [place] [id number] * BNP (B-TYPE NATRIURETIC PEPTI) (11/25/2017 3:40 AM) Component Value Ref Range B Type Natriuretic 458.0 (H) 0 - 100 PG/ML Peptide Specimen Performing Laboratory Blood [facility] [address] [place] [address] 87383 * POC GLUCOSE (11/25/2017 3:35 AM) Component Value Ref Range Glucose, POC 135 (H) 70 - 100 MG/DL Specimen Performing Laboratory [facility] [address] [place] [address] 69278 * POC GLUCOSE (11/24/2017 8:43 PM) Component Value Ref Range Glucose, POC 278 (H) 70 - 100 MG/DL Specimen Performing Laboratory [facility] [address] [place] [address] 76943 * POC GLUCOSE (11/24/2017 4:51 PM) Component Value Ref Range Glucose, POC 153 (H) 70 - 100 MG/DL Specimen Performing Laboratory [facility] [address] [place] [address] 79970 * POC GLUCOSE (11/24/2017 10:52 AM) Component Value Ref Range Glucose, POC 91 70 - 100 MG/DL Specimen Performing Laboratory MAIN LAB [address] [place] [address] * POC GLUCOSE (11/24/2017 8:43 AM) Component Value Ref Range Glucose, POC 83 70 - 100 MG/DL Specimen Performing Laboratory MAIN LAB [address] [place] [address] * COMPREHENSIVE METABOLIC PANEL (11/24/2017 3:40 AM) [...] Specimen Performing Laboratory Blood MAIN LAB [address] [place] [address] * CBC AND DIFF (11/24/2017 3:40 AM) [...] K/UL Specimen Performing Laboratory Blood MAIN LAB [address] [place] [address] * MAGNESIUM (11/24/2017 3:40 AM) Component Value Ref Range Magnesium 1.7 1.6 - 2.6 mg/dL Specimen Performing Laboratory Blood MAIN LAB [address] [place], [place] [id number] * PHOSPHORUS (11/24/2017 3:40 AM) Component Value Ref Range Phosphorus 1.9 (L) 2.0 - 4.0 MG/DL Specimen Performing Laboratory Blood [facility] [address] [place] [address] * ACETAMINOPHEN LEVEL (11/24/2017 3:40 AM) Component Value Ref Range Acetaminophen <10.0 <20.1 MCG/ML Specimen Performing Laboratory Blood [facility] [address] [place], [place] [id number] * PROTIME INR (PT) (11/24/2017 3:40 AM) Component Value Ref Range INR 1.2 0.8 - 1.2 Specimen Performing Laboratory Blood [facility] [address] [place] [address] * C DIFFICILE BY PCR (11/24/2017 1:35 AM) Component Value Ref Range Battery Name C DIFFICILE PCR Specimen Description FECES Special Requests NONE C. Difficile Toxin B PCR NEGATIVE-wait 7 days to repeat test Report Status FINAL 11/24/2017 Specimen Performing Laboratory Feces MAIN LAB [address] [place] [address] 86065 * POC GLUCOSE (11/23/2017 8:38 PM) Component Value Ref Range Glucose, POC 203 (H) 70 - 100 MG/DL Specimen Performing Laboratory [facility] [address] [place] [address] 66961 * POC GLUCOSE (11/23/2017 5:42 PM) Component Value Ref Range Glucose, POC 277 (H) 70 - 100 MG/DL Specimen Performing Laboratory [facility] [address] [place] [address] 47734 * URINE COLLECTION (11/23/2017 2:00 PM) Component Value Ref Range Collection Period, Urine 24.0 Volume, Urine 3,624 MLS Specimen Performing Laboratory [facility] [address] [place] [address] 19641 * COPPER-URINE 24 HR (11/23/2017 2:00 PM) Component Value Ref Range Copper, 24 HR 93 (H) Comment: Reference range: <=60 Unit: mcg/[address] [facility], [address] [place] [address] 54661 Collection Period, Urine 24 Comment: Unit: h [facility], [address] [place] [address] 32884 Volume, Urine 3,624 Comment: Unit: mL ADDITIONAL INFORMATION This test was developed and its performance characteristics determined by [facility] in a manner consistent with CLIA requirements. This test has not been cleared or approved by the U.S. Food and Drug Administration. [facility], [address] [place] [address] 58651 Specimen Performing Laboratory Urine REFERENCE LAB * POC GLUCOSE (11/23/2017 12:48 PM) Component Value Ref Range Glucose, POC 183 (H) 70 - 100 MG/DL Specimen Performing Laboratory [facility] [address] [place] [address] 94824 * PHOSPHORUS (11/23/2017 11:02 AM) Component Value Ref Range Phosphorus 1.8 (L) 2.0 - 4.0 MG/DL Specimen Performing Laboratory Blood [facility] [address] [place] [address] 63177 * BASIC METABOLIC PANEL (11/23/2017 11:02 AM) [...] Pharmacist for questions. Specimen Performing Laboratory Blood [facility] [address] [place] [address] * POC GLUCOSE (11/23/2017 11:01 AM) Component Value Ref Range Glucose, POC 179 (H) 70 - 100 MG/DL Specimen Performing Laboratory [facility] [address] [place], [place] [id number] * POC GLUCOSE (11/23/2017 6:09 AM) Component Value Ref Range Glucose, POC 126 (H) 70 - 100 MG/DL Specimen Performing Laboratory [facility] [address] [place], [place] [id number] * POC GLUCOSE (11/23/2017 4:09 AM) Component Value Ref Range Glucose, POC 92 70 - 100 MG/DL Specimen Performing Laboratory [facility] [address] [place], [place] [id number] * LIPASE (11/23/2017 3:11 AM) Component Value Ref Range Lipase 269 (H) 11 - 82 U/L Specimen Performing Laboratory [facility] [address] [place], [place] [id number] * AMMONIA (11/23/2017 3:11 AM) Component Value Ref Range Ammonia 32 9 - 35 MCMOL/L Specimen Performing Laboratory Blood [facility] [address] [place], [place] [id number] * FACTOR 5 ASSAY (11/23/2017 3:11 AM) Component Value Ref Range Factor 5 164 (H) 50 - 150 % Specimen Performing Laboratory Blood [facility] [address] [place], [place] [id number] * MAGNESIUM (11/23/2017 3:11 AM) Component Value Ref Range Magnesium 1.7 1.6 - 2.6 mg/dL Specimen Performing Laboratory Blood MAIN LAB [address] [place] [address] * ACETAMINOPHEN LEVEL (11/23/2017 3:11 AM) Component Value Ref Range Acetaminophen <10.0 <20.1 MCG/ML Specimen Performing Laboratory Blood MAIN LAB [address] [place], [place] [id number] * PHOSPHORUS (11/23/2017 3:11 AM) Component Value Ref Range Phosphorus 2.0 2.0 - 4.0 MG/DL Specimen Performing Laboratory Blood MAIN LAB [address] [place], [place] [id number] * COMPREHENSIVE METABOLIC PANEL (11/23/2017 3:11 AM) [...] questions. Specimen Performing Laboratory Blood MAIN LAB [address] [place] [address] * PROTIME INR (PT) (11/23/2017 3:11 AM) Component Value Ref Range INR 1.2 0.8 - 1.2 Specimen Performing Laboratory Blood MAIN LAB [address] [place], [place] [id number] * CBC AND DIFF (11/23/2017 3:11 AM) [...] - 0.20 K/UL Specimen Performing Laboratory Blood [facility] [address] [place], [place] [id number] * POC GLUCOSE (11/23/2017 3:10 AM) Component Value Ref Range Glucose, POC 89 70 - 100 MG/DL Specimen Performing Laboratory [facility] [address] [place] [address] 98587 * POC GLUCOSE (11/23/2017 1:51 AM) Component Value Ref Range Glucose, POC 96 70 - 100 MG/DL Specimen Performing Laboratory [facility] [address] [place] [address] 86188 * POC GLUCOSE (11/23/2017 1:08 AM) Component Value Ref Range Glucose, POC 97 70 - 100 MG/DL Specimen Performing Laboratory [facility] [address] [place] [address] 68936 * POC GLUCOSE (11/22/2017 11:58 PM) Component Value Ref Range Glucose, POC 113 (H) 70 - 100 MG/DL Specimen Performing Laboratory [facility] [address] [place] [address] 87461 * POC GLUCOSE (11/22/2017 11:00 PM) Component Value Ref Range Glucose, POC 121 (H) 70 - 100 MG/DL Specimen Performing Laboratory MAIN LAB [address] [place] [address] 54588 * POC GLUCOSE (11/22/2017 10:06 PM) Component Value Ref Range Glucose, POC 126 (H) 70 - 100 MG/DL Specimen Performing Laboratory MAIN LAB [address] [place] [address] 65482 * PHOSPHORUS (11/22/2017 9:13 PM) Component Value Ref Range Phosphorus 2.4 2.0 - 4.0 MG/DL Specimen Performing Laboratory Blood MAIN LAB [address] [place] [address] 04059 * BASIC METABOLIC PANEL (11/22/2017 9:13 PM) [...] Specimen Performing Laboratory Blood MAIN LAB [address] [place] [address] 19405 * POC GLUCOSE (11/22/2017 9:12 PM) Component Value Ref Range Glucose, POC 154 (H) 70 - 100 MG/DL Specimen Performing Laboratory MAIN LAB [address] [place] [address] 77102 * TROPONIN-I (11/22/2017 7:34 PM) Component Value Ref Range Troponin-I 0.26 (H) 0.0 - 0.05 NG/ML Specimen Performing Laboratory Blood MAIN LAB [address] [place] [address] 73547 * POC GLUCOSE (11/22/2017 6:50 PM) Component Value Ref Range Glucose, POC 124 (H) 70 - 100 MG/DL Specimen Performing Laboratory MAIN LAB [address] [place] [address] * POC GLUCOSE (11/22/2017 5:07 PM) Component Value Ref Range Glucose, POC 139 (H) 70 - 100 MG/DL Specimen Performing Laboratory MAIN LAB [address] [place] [address] 00383 * MAGNESIUM (11/22/2017 4:00 PM) Component Value Ref Range Magnesium 1.7 1.6 - 2.6 mg/dL Specimen Performing Laboratory Blood MAIN LAB [address] [place] [address] 11263 * PHOSPHORUS (11/22/2017 4:00 PM) Component Value Ref Range Phosphorus 1.6 (L) 2.0 - 4.0 MG/DL Specimen Performing Laboratory Blood MAIN LAB [address] [place] [address] 34114 * COMPREHENSIVE METABOLIC PANEL (11/22/2017 4:00 PM) [...] Performing Laboratory Blood [facility] MAIN LAB [address] [place] [address] * POC GLUCOSE (11/22/2017 3:11 PM) Component Value Ref Range Glucose, POC 141 (H) 70 - 100 MG/DL Specimen Performing Laboratory [facility] MAIN LAB [address] [place] [address] * CT ABD/PELV W CONTRAST (11/22/2017 2:18 [...] MCG/ML Specimen Performing Laboratory Blood MAIN LAB [address] [place], [place] [phone] * TROPONIN-I (11/22/2017 1:00 PM) Component Value Ref Range Troponin-I 0.39 (H) 0.0 - 0.05 NG/ML Specimen Performing Laboratory Blood MAIN LAB [address] [place] [address] 94753 * POC GLUCOSE (11/22/2017 12:54 PM) Component Value Ref Range Glucose, POC 147 (H) 70 - 100 MG/DL Specimen Performing Laboratory MAIN LAB [address] [place] [address] 34428 * POC GLUCOSE (11/22/2017 11:04 AM) Component Value Ref Range Glucose, POC 160 (H) 70 - 100 MG/DL Specimen Performing Laboratory [facility] [address] [place], [place] [id number] * POC GLUCOSE (11/22/2017 10:12 AM) Component Value Ref Range Glucose, POC 167 (H) 70 - 100 MG/DL Specimen Performing Laboratory [facility] [address] [place], [place] [id number] * PHOSPHORUS (11/22/2017 10:12 AM) Component Value Ref Range Phosphorus 2.1 2.0 - 4.0 MG/DL Specimen Performing Laboratory Blood [facility] [address] [place] [address] * BASIC METABOLIC PANEL (11/22/2017 10:12 AM) [...] Pharmacist for questions. Specimen Performing Laboratory Blood [facility] [address] [place], [place] [id number] * POC GLUCOSE (11/22/2017 8:59 AM) Component Value Ref Range Glucose, POC 175 (H) 70 - 100 MG/DL Specimen Performing Laboratory [address] [address] * POC GLUCOSE (11/22/2017 8:19 AM) Component Value Ref Range Glucose, POC 180 (H) 70 - 100 MG/DL Specimen Performing Laboratory [facility] [address] [place] [address] 57882 * POC GLUCOSE (11/22/2017 7:16 AM) Component Value Ref Range Glucose, POC 101 (H) 70 - 100 MG/DL Specimen Performing Laboratory [address] [address] * POC GLUCOSE (11/22/2017 6:58 AM) Component Value Ref Range Glucose, POC 96 70 - 100 MG/DL Specimen Performing Laboratory [address] [address] * POC GLUCOSE (11/22/2017 6:11 AM) Component Value Ref Range Glucose, POC 111 (H) 70 - 100 MG/DL Specimen Performing Laboratory [address] [address] * POC GLUCOSE (11/22/2017 5:07 AM) Component Value Ref Range Glucose, POC 134 (H) 70 - 100 MG/DL Specimen Performing Laboratory [address] [address] * AMMONIA (11/22/2017 3:05 AM) Component Value Ref Range Ammonia 47 (H) 9 - 35 MCMOL/L Specimen Performing Laboratory Blood [facility] [address] [place], [place] [id number] * FACTOR 5 ASSAY (11/22/2017 3:05 AM) Component Value Ref Range Factor 5 49 (L) 50 - 150 % Specimen Performing Laboratory Blood [facility] [address] [place] [address] 74380 * MAGNESIUM (11/22/2017 3:05 AM) Component Value Ref Range Magnesium 1.8 1.6 - 2.6 mg/dL Specimen Performing Laboratory Blood [place] [address] [place] [address] * ACETAMINOPHEN LEVEL (11/22/2017 3:05 AM) Component Value Ref Range Acetaminophen <10.0 <20.1 MCG/ML Specimen Performing Laboratory Blood MAIN LAB [address] [place] [address] * BLOOD GASES, ARTERIAL (11/22/2017 3:05 AM) Component Value Ref Range pH-Arterial 7.37 7.35 - 7.45 pCO2-Arterial 28 (L) 35 - 45 MMHG pO2-Arterial 69 (L) 80 - 100 MMHG Base Deficit-Arterial 7.9 MMOL/L O2 Sat-Arterial 94.3 (L) 95 - 99 % Pjkkqivgjxz-AKG-Pgb 18.0 (L) 21 - 28 MMOL/L Specimen Performing Laboratory Blood, arterial - Blood MAIN LAB [address] [place] [address] * PHOSPHORUS (11/22/2017 3:05 AM) Component Value Ref Range Phosphorus 2.2 2.0 - 4.0 MG/DL Specimen Performing Laboratory Blood MAIN LAB [address] [place] [address] * COMPREHENSIVE METABOLIC PANEL (11/22/2017 3:05 AM) [...] questions. Specimen Performing Laboratory Blood MAIN LAB [address] [place], [place] [id number] * PROTIME INR (PT) (11/22/2017 3:05 AM) Component Value Ref Range INR 1.4 (H) 0.8 - 1.2 Specimen Performing Laboratory Blood MAIN LAB [address] [place], [place] [id number] * CBC AND DIFF (11/22/2017 3:05 AM) [...] K/UL Specimen Performing Laboratory Blood MAIN LAB [address] [place] [address] 54065 * LIPASE (11/22/2017 3:05 AM) Component Value Ref Range Lipase 908 (H) 11 - 82 U/L Specimen Performing Laboratory Blood MAIN LAB [address] [place] [address] 22924 * POC GLUCOSE (11/22/2017 3:04 AM) Component Value Ref Range Glucose, POC 155 (H) 70 - 100 MG/DL Specimen Performing Laboratory MAIN LAB [address] [place], [place] [id number] * POC GLUCOSE (11/22/2017 2:23 AM) Component Value Ref Range Glucose, POC 155 (H) 70 - 100 MG/DL Specimen Performing Laboratory MAIN LAB [address] [place], [place] [id number] * TROPONIN-I (11/22/2017 1:43 AM) Component Value Ref Range Troponin-I 1.18 (H) 0.0 - 0.05 NG/ML Specimen Performing Laboratory Blood MAIN LAB [address] [place], [place] [id number] * POC GLUCOSE (11/22/2017 1:12 AM) Component Value Ref Range Glucose, POC 186 (H) 70 - 100 MG/DL Specimen Performing Laboratory MAIN LAB [address] [place] [address] * POC GLUCOSE (11/22/2017 12:24 AM) Component Value Ref Range Glucose, POC 187 (H) 70 - 100 MG/DL Specimen Performing Laboratory MAIN LAB [address] [place] [address] * POC GLUCOSE (11/21/2017 11:13 PM) Component Value Ref Range Glucose, POC 177 (H) 70 - 100 MG/DL Specimen Performing Laboratory MAIN LAB [address] [place] [address] * BLOOD GASES, ARTERIAL (11/21/2017 10:05 PM) Component Value Ref Range pH-Arterial 7.35 7.35 - 7.45 pCO2-Arterial 26 (L) 35 - 45 MMHG pO2-Arterial 85 80 - 100 MMHG Base Deficit-Arterial 10.1 MMOL/L O2 Sat-Arterial 96.6 95 - 99 % Yleaynivhkn-CSP-Frx 16.5 (L) 21 - 28 MMOL/L Specimen Performing Laboratory Blood, arterial - Blood MAIN LAB [address] [place], [place] [id number] * PHOSPHORUS (11/21/2017 10:05 PM) Component Value Ref Range Phosphorus 3.4 2.0 - 4.0 MG/DL Specimen Performing Laboratory Blood MAIN LAB [address] [place] [address] * BASIC METABOLIC PANEL (11/21/2017 10:05 PM) [...] Pharmacist for questions. Specimen Performing Laboratory Blood [facility] [address] [place], [place] [id number] * TROPONIN-I (11/21/2017 10:05 PM) Component Value Ref Range Troponin-I 1.58 (H) 0.0 - 0.05 NG/ML Specimen Performing Laboratory Blood [facility] [address] [place], [place] [id number] * POC GLUCOSE (11/21/2017 10:03 PM) Component Value Ref Range Glucose, POC 195 (H) 70 - 100 MG/DL Specimen Performing Laboratory [facility] [address] [place] [address] 35334 * POC GLUCOSE (11/21/2017 8:07 PM) Component Value Ref Range Glucose, POC 170 (H) 70 - 100 MG/DL Specimen Performing Laboratory [facility] [address] [place] [address] 26436 * POC GLUCOSE (11/21/2017 7:00 PM) Component Value Ref Range Glucose, POC 106 (H) 70 - 100 MG/DL Specimen Performing Laboratory [facility] [address] [place] [address] 17265 * POC GLUCOSE (11/21/2017 6:09 PM) Component Value Ref Range Glucose, POC 106 (H) 70 - 100 MG/DL Specimen Performing Laboratory [facility] [address] [place] [address] 91288 * POC GLUCOSE (11/21/2017 5:11 PM) Component Value Ref Range Glucose, POC 103 (H) 70 - 100 MG/DL Specimen Performing Laboratory [facility] [address] [place] [address] 79420 * POC GLUCOSE (11/21/2017 4:19 PM) Component Value Ref Range Glucose, POC 120 (H) 70 - 100 MG/DL Specimen Performing Laboratory MAIN LAB [address] [place] [id number] * MAGNESIUM (11/21/2017 4:18 PM) Component Value Ref Range Magnesium 2.0 1.6 - 2.6 mg/dL Specimen Performing Laboratory Blood MAIN LAB [address] [place] [address] * BLOOD GASES, ARTERIAL (11/21/2017 4:18 PM) Component Value Ref Range pH-Arterial 7.30 (L) 7.35 - 7.45 pCO2-Arterial 32 (L) 35 - 45 MMHG pO2-Arterial 124 (H) 80 - 100 MMHG Base Deficit-Arterial 9.9 MMOL/L O2 Sat-Arterial 98.5 95 - 99 % Lfqsityzlup-OGE-Lwy 16.7 (L) 21 - 28 MMOL/L Specimen Performing Laboratory Blood, arterial - Blood MAIN LAB [address] [place] [address] 66[address] * PHOSPHORUS (11/21/2017 4:18 PM) Component Value Ref Range Phosphorus 1.7 (L) 2.0 - 4.0 MG/DL Specimen Performing Laboratory Blood MAIN LAB [address] [place] [address] 84817 * COMPREHENSIVE METABOLIC PANEL (11/21/2017 4:18 PM) [...] Pharmacist for questions. Specimen Performing Laboratory Blood [facility] [address] [place] [address] * POC GLUCOSE (11/21/2017 3:10 PM) Component Value Ref Range Glucose, POC 160 (H) 70 - 100 MG/DL Specimen Performing Laboratory [facility] [address] [place], [place] [id number] * POC GLUCOSE (11/21/2017 2:16 PM) Component Value Ref Range Glucose, POC 133 (H) 70 - 100 MG/DL Specimen Performing Laboratory [facility] [address] [place] [address] * LACTIC ACID (BG - RAPID LACTATE) (11/21/2017 1:21 PM) Component Value Ref Range Lactic Acid,BG 1.1 0.5 - 2.0 MMOL/L Specimen Performing Laboratory [facility] [address] [place] [address] * O2 SATURATION, CENTRAL VENOUS (11/21/2017 1:21 PM) Component Value Ref Range O2 Sat, Central Venous 77.4 % Specimen Performing Laboratory Blood [facility] [address] [place] [address] * TROPONIN-I (11/21/2017 1:21 PM) Component Value Ref Range Troponin-I 0.33 (H) 0.0 - 0.05 NG/ML Specimen Performing Laboratory Blood [facility] [address] [place], [place] [id number] * POC GLUCOSE (11/21/2017 1:20 PM) Component Value Ref Range Glucose, POC 149 (H) 70 - 100 MG/DL Specimen Performing Laboratory [facility] [address] [place], [place] [id number] * POC GLUCOSE (11/21/2017 12:16 PM) Component Value Ref Range Glucose, POC 143 (H) 70 - 100 MG/DL Specimen Performing Laboratory [facility] [address] [place], [place] [id number] * POC GLUCOSE (11/21/2017 11:17 AM) Component Value Ref Range Glucose, POC 171 (H) 70 - 100 MG/DL Specimen Performing Laboratory MAIN LAB [address] [place] [address] * 2-D + DOPPLER ECHOCARDIOGRAM (11/21/2017 10:37 [...] 3.1 - 3.7 cm CV ECHO PV CAR STOWER ELICEO Mayo ([id number]) Bubbles and Definity LV mass 111.14 96 - 200 g RWT 0.44 <=0.42 TV rest pulmonary artery 31 mmHg pressure Right Heart Systolic TDI 0.086 m/s S' Cardiology Ultrasound Siemens [id number] Machine Left Ventricle Mass Index 58.49 50 [...] MG/DL Specimen Performing Laboratory MAIN LAB [address] [place] [address] * PHOSPHORUS (11/21/2017 10:08 AM) Component Value Ref Range Phosphorus 2.1 2.0 - 4.0 MG/DL Specimen Performing Laboratory Blood MAIN LAB [address] [place] [address] * COMPREHENSIVE METABOLIC PANEL (11/21/2017 10:08 AM) [...] Specimen Performing Laboratory Blood MAIN LAB [address] [place] [address] * MAGNESIUM (11/21/2017 10:08 AM) Component Value Ref Range Magnesium 2.1 1.6 - 2.6 mg/dL Specimen Performing Laboratory Blood MAIN LAB [address] [place] [address] * POC GLUCOSE (11/21/2017 9:06 AM) Component Value Ref Range Glucose, POC 192 (H) 70 - 100 MG/DL Specimen Performing Laboratory MAIN LAB [address] [place] [address] * BLOOD GASES, ARTERIAL (11/21/2017 8:35 AM) Component Value Ref Range pH-Arterial 7.31 (L) 7.35 - 7.45 pCO2-Arterial 26 (L) 35 - 45 MMHG pO2-Arterial 164 (H) 80 - 100 MMHG Base Deficit-Arterial 11.6 MMOL/L O2 Sat-Arterial 99.0 95 - 99 % Dpkhvjvecsp-MVN-Dug 15.4 (L) 21 - 28 MMOL/L Specimen Performing Laboratory Blood, arterial - Blood [facility] MAIN LAB [address] [place] [address] * GRAM STAIN (11/21/2017 8:24 AM) Component Value Ref Range Battery Name GRAM STAIN Specimen Description TRACHEAL ASPIRATE Special Requests NONE Gram Stain GREATER THAN 25/LPF NEUTROPHILS LESS THAN 10/LPF SQUAMOUS EPITHELIAL CELLS MANY GRAM POSITIVE COCCI RESEMBLING STREPTOCOCCI FEW GRAM POSITIVE COCCI RESEMBLING STAPHYLOCOCCI Report Status FINAL 11/21/2017 Specimen Performing Laboratory Tracheal Aspirate MAIN LAB [address] [place] [address] * CULTURE-RESP,LOWER W/SENSITIVITY (11/21/2017 8:24 AM) Component [...] Performing Laboratory Tracheal Aspirate MAIN LAB [address] [place] [address] Organism Antibiotic Method Susceptibility Heavy growth Penicillin [...] verify the correct patient, procedure, equipment, support clerk and site/side marked as required. Preparation: Patient [...] NG/ML Specimen Performing Laboratory Blood MAIN LAB [address] [place], [place] [id number] * TROPONIN-I (11/21/2017 8:00 AM) Component Value Ref Range Troponin-I 0.21 (H) 0.0 - 0.05 NG/ML Specimen Performing Laboratory Blood MAIN LAB [address] [place], [place] [id number] * POC GLUCOSE (11/21/2017 7:47 AM) Component Value Ref Range Glucose, POC 122 (H) 70 - 100 MG/DL Specimen Performing Laboratory MAIN LAB [address] [place] [address] * POC GLUCOSE (11/21/2017 7:01 AM) Component Value Ref Range Glucose, POC 100 70 - 100 MG/DL Specimen Performing Laboratory MAIN LAB [address] [place] [address] * POC GLUCOSE (11/21/2017 6:47 AM) Component Value Ref Range Glucose, POC 97 70 - 100 MG/DL Specimen Performing Laboratory [facility] [address] [place] [address] * PHOSPHORUS (11/21/2017 6:45 AM) Component Value Ref Range Phosphorus <1.0 (LL) 2.0 - 4.0 MG/DL Comment: Critical Value PHOS: Called To: MODESTA Fortune at: 07:28:55 by: CARMELA Read back by: MODESTA Fortune Specimen Performing Laboratory Blood MAIN LAB [address] [place] [id number] * COMPREHENSIVE METABOLIC PANEL (11/21/2017 6:45 AM) [...] Performing Laboratory Blood [facility] MAIN [facility] [address] [place] [address] * MAGNESIUM (11/21/2017 6:45 AM) Component Value Ref Range Magnesium 2.3 1.6 - 2.6 mg/dL Specimen Performing Laboratory Blood [facility] MAIN [facility] [address] [place] [address] * CT HEAD WO CONTRAST (11/21/2017 6:16 [...] MG/DL Specimen Performing Laboratory MAIN LAB [address] [place] [address] * POC GLUCOSE (11/21/2017 4:56 AM) Component Value Ref Range Glucose, POC 153 (H) 70 - 100 MG/DL Specimen Performing Laboratory MAIN LAB [address] [place] [address] * US ABDOMEN COMPLETE (11/21/2017 4:00 AM) [...] Specimen Performing Laboratory [facility]IN [facility] [address] [place] [address] * CULTURE-BLOOD W/SENSITIVITY (11/21/2017 3:20 AM) Component Value Ref Range Battery Name BLOOD CULTURE Specimen Description BLOOD NO SITE INDICATED Special Requests NONE Culture NO GROWTH 5 DAYS Report Status FINAL 11/27/2017 Specimen Performing Laboratory Blood MAIN LAB [address] [place] [address] * CULTURE-BLOOD W/SENSITIVITY (11/21/2017 3:10 AM) Component Value Ref Range Battery Name BLOOD CULTURE Specimen Description BLOOD LEFT RADIAL Special Requests NONE Culture NO GROWTH 5 DAYS Report Status FINAL 11/27/2017 Specimen Performing Laboratory Blood MAIN LAB [address] [place] [address] * BLOOD GASES, ARTERIAL (11/21/2017 3:10 AM) Component Value Ref Range pH-Arterial 7.34 (L) 7.35 - 7.45 pCO2-Arterial 30 (L) 35 - 45 MMHG pO2-Arterial 159 (H) 80 - 100 MMHG Base Deficit-Arterial 8.4 MMOL/L O2 Sat-Arterial 99.2 (H) 95 - 99 % Qzbpuzchdpb-DIU-Vba 17.8 (L) 21 - 28 MMOL/L Specimen Performing Laboratory Blood, arterial - Blood MAIN LAB [address] [place] [address] * CHEST SINGLE VIEW (11/21/2017 2:13 AM) [...] the diaphragm and tip not visualized in [id number]. Endotracheal tube projects at the level of [...] the diaphragm and tip not visualized in [id number]. Endotracheal tube projects at the level of [...] Performing Laboratory Urine [facility] MAIN [facility] [address] [place] [address] * URINALYSIS, MICROSCOPIC (11/21/2017 2:00 AM) Component Value Ref Range WBCs,UA 2-5 0 - 2 /HPF RBCs,UA 0-2 0 - 3 /HPF Amorphous Sedimate,UA TRACE Bacteria,UA FEW (A) NEG-NEG Specimen Performing Laboratory Urine [facility] [address] [place] [address] * URINALYSIS DIPSTICK (11/21/2017 2:00 AM) Component Value Ref Range Color,UA YELLOW Turbidity,UA CLEAR CLEAR-CLEAR Specific [place]-Urine 1.040 (H) 1.003 - 1.035 pH,UA 5.0 5.0 - 8.0 Protein,UA 1+ (A) NEG-NEG Glucose,UA 1+ (A) NEG-NEG Ketones,UA 1+ (A) NEG-NEG Bilirubin,UA POS (A) NEG-NEG Blood,UA NEG NEG-NEG Urobilinogen,UA NORMAL NORM-NORMAL Nitrite,UA NEG NEG-NEG Leukocytes,UA NEG NEG-NEG Specimen Performing Laboratory Urine [address] [address] * PHENCYCLIDINES-URINE RANDOM (11/21/2017 2:00 AM) Component Value Ref Range Phencyclidine (PCP) NEG NEG-NEG Comment: RESULTS WERE OBTAINED BY IMMUNOASSAY AND ARE PRESUMPTIVE ONLY. POSITIVE INDICATES THE PRESENCE OF SUBSTANCE WITH CHARACTERISTICS SIMILAR TO DRUG-DRUG CLASS OR METABOLITE IN CONC. EQUAL TO OR EXCEEDING VALUES LISTED. PHENCYCLIDINE (PCP)25 NG/ML Specimen Performing Laboratory Urine [address] [address] * OPIATES-URINE RANDOM (11/21/2017 2:00 AM) Component Value Ref Range Opiates-Urine NEG NEG-NEG Comment: RESULTS WERE OBTAINED BY IMMUNOASSAY AND ARE PRESUMPTIVE ONLY. POSITIVE INDICATES THE PRESENCE OF SUBSTANCE WITH CHARACTERISTICS SIMILAR TO DRUG-DRUG CLASS OR METABOLITE IN CONC. EQUAL TO OR EXCEEDING VALUES LISTED. [id number] NG/ML Specimen Performing Laboratory Urine [address] [address] * COCAINE-URINE RANDOM (11/21/2017 2:00 AM) Component Value Ref Range Cocaine-Urine NEG NEG-NEG Comment: RESULTS WERE OBTAINED BY IMMUNOASSAY AND ARE PRESUMPTIVE ONLY. POSITIVE INDICATES THE PRESENCE OF SUBSTANCE WITH CHARACTERISTICS SIMILAR TO DRUG-DRUG CLASS OR METABOLITE IN CONC. EQUAL TO OR EXCEEDING VALUES LISTED. COCAINE 300 NG/ML Specimen Performing Laboratory Urine [address] [address] * CANNABINOIDS-URINE RANDOM (11/21/2017 2:00 AM) Component Value Ref Range THC NEG NEG-NEG Comment: RESULTS WERE OBTAINED BY IMMUNOASSAY AND ARE PRESUMPTIVE ONLY. POSITIVE INDICATES THE PRESENCE OF SUBSTANCE WITH CHARACTERISTICS SIMILAR TO DRUG-DRUG CLASS OR METABOLITE IN CONC. EQUAL TO OR EXCEEDING VALUES LISTED. [id number] NG/ML Specimen Performing Laboratory Urine [facility] [address] [place] [address] * BENZODIAZEPINES-URINE RANDOM (11/21/2017 2:00 AM) Component Value Ref Range Benzodiazepines POS (A) NEG-NEG Comment: RESULTS WERE OBTAINED BY IMMUNOASSAY AND ARE PRESUMPTIVE ONLY. POSITIVE INDICATES THE PRESENCE OF SUBSTANCE WITH CHARACTERISTICS SIMILAR TO DRUG-DRUG CLASS OR METABOLITE IN CONC. EQUAL TO OR EXCEEDING VALUES LISTED. BENZODIAZEPINES 200 NG/ML Specimen Performing Laboratory Urine [facility] [address] [place] [address] * BARBITURATES-URINE RANDOM (11/21/2017 2:00 AM) Component Value Ref Range Barbiturates,Urine NEG NEG-NEG Comment: RESULTS WERE OBTAINED BY IMMUNOASSAY AND ARE PRESUMPTIVE ONLY. POSITIVE INDICATES THE PRESENCE OF SUBSTANCE WITH CHARACTERISTICS SIMILAR TO DRUG-DRUG CLASS OR METABOLITE IN CONC. EQUAL TO OR EXCEEDING VALUES LISTED. [id number] NG/ML Specimen Performing Laboratory Urine [facility] [address] [place] [address] * AMPHETAMINES-URINE RANDOM (11/21/2017 2:00 AM) Component Value Ref Range Amphetamines NEG NEG-NEG Comment: RESULTS WERE OBTAINED BY IMMUNOASSAY AND ARE PRESUMPTIVE ONLY. POSITIVE INDICATES THE PRESENCE OF SUBSTANCE WITH CHARACTERISTICS SIMILAR TO DRUG-DRUG CLASS OR METABOLITE IN CONC. EQUAL TO OR EXCEEDING VALUES LISTED. AMPHETAMINES 1000 NG/ML Specimen Performing Laboratory Urine [facility] [address] [place] [address] * OSMOLALITY (11/21/2017 1:55 AM) Component Value Ref Range Osmolality 301 280 - 307 MOSMOL/KG Specimen Performing Laboratory [facility] [address] [place] [address] * BETA HYDROXYBUTYRATE (KETONES) (11/21/2017 1:55 AM) Component Value Ref Range Beta Hydroxybutyrate 0.5 (H) <0.3 MMOL/L Comment: Beta hydroxybutyrate (BOHB) is the most abundant ketone (78%), followed by acetoacetate (20%) and acetone (2%).Measurement BOHB is recommended to assess ketones in DKA. Expected BOHB Results for DKA: Initial presentation high/increasing During treatment decreasing Resolved decreasing/normal Specimen Performing Laboratory MAIN LAB [address] [place] [address] * POC GLUCOSE (11/21/2017 1:55 AM) Component Value Ref Range Glucose, POC 329 (H) 70 - 100 MG/DL Specimen Performing Laboratory MAIN LAB [address] [place] [address] * ALPHA 1 ANTITRYPSIN PHENOTYPE (11/21/2017 1:55 AM) Component Value Ref Range Alpha 1 Anti-Trypsin 92 (L) Comment: Reference range: [id number] Unit: mg/dL [facility] Alpha 1 Antitrypsin M Phenotype Unit: bands An unidentified allele is also noted. [facility] Specimen Performing Laboratory Blood REFERENCE LAB * PHOSPHORUS (11/21/2017 1:55 AM) Component Value Ref Range Phosphorus <1.0 (LL) 2.0 - 4.0 MG/DL Comment: CRITICAL VALUE CALLED TO AND READ BACK BY/TIME/NAKUL Cote/Joellen/RAYMON Specimen Performing Laboratory Blood MAIN LAB [address] [place] [address] * COMPREHENSIVE METABOLIC PANEL (11/21/2017 1:55 AM) [...] questions. Specimen Performing Laboratory Blood MAIN LAB [address] [place] [address] * FACTOR 5 ASSAY (11/21/2017 1:55 AM) Component Value Ref Range Factor 5 58 50 - 150 % Specimen Performing Laboratory Blood [facility] [address] [place] [address] * FIBRINOGEN (11/21/2017 1:55 AM) Component Value Ref Range Fibrinogen 222 200 - 400 MG/DL Specimen Performing Laboratory Blood [facility] [address] [place] [address] * AMMONIA (11/21/2017 1:55 AM) Component Value Ref Range Ammonia 51 (H) 9 - 35 MCMOL/L Specimen Performing Laboratory Blood [facility] [address] [place], [place] [id number] * ABO/RH(D) (11/21/2017 1:55 AM) Component Value Ref Range ABO/RH(D) A POS Specimen Performing Laboratory Blood [facility] [address] [place] [address] * ANTI-SMOOTH MUSCLE AB (11/21/2017 1:55 AM) Component Value Ref Range Anti-Smooth Muscle Screen <20 <20 TITER Specimen Performing Laboratory Blood [address] [address] * ANTI-NUCLEAR ANTIBODY(DANIKA) (11/21/2017 1:55 AM) Component Value Ref Range DANIKA Screen <80 <80 TITER Specimen Performing Laboratory Blood [facility] [address] [place] [address] * ANTI-MITOCHONDRIAL ANTIBODY (11/21/2017 1:55 AM) Component Value Ref Range Anti-Mitochondrial Screen <20 <20 TITER Specimen Performing Laboratory Blood [facility] [address] [place] [address] * VARICELLA ZOSTER AB IGG (11/21/2017 1:55 AM) Component Value Ref Range Varcella Zoster IgG POS Specimen Performing Laboratory Blood [facility] [address] [place] [address] * NADEEM PORTER PANEL(EBV) (11/21/2017 1:55 AM) Component Value Ref Range EBV Capsid IgG POS EBV Nuclear Ag,Ab POS EBV Early Ag,Ab NEG EBV Capsid IgM NEG NEG-NEG Specimen Performing Laboratory Blood MAIN LAB [address] [place], [place] [id number] * HIV-1/2 ANTIGEN/ANTIBODY SCREEN (11/21/2017 1:55 AM) Component Value Ref Range HIV 1 and 2 AG AB Screen NEG NEG-NEG Specimen Performing Laboratory Blood MAIN LAB [address] [place] [address] * CMV AB IGG (11/21/2017 1:55 AM) Component Value Ref Range CMV, IgG POS Specimen Performing Laboratory Blood MAIN LAB [address] [place], [place] [id number] * CMV AB IGM (11/21/2017 1:55 AM) Component Value Ref Range CMV, IgM NEG NEG-NEG Specimen Performing Laboratory Blood MAIN LAB [address] [place], [place] [id number] * HSV I/II GLYCOPROTEIN G AB (11/21/2017 1:55 AM) Component Value Ref Range HSV Type 1 IgG NEG NEG-NEG HSV Type 2 IgG NEG NEG-NEG Specimen Performing Laboratory Blood MAIN LAB [address] [place], [place] [id number] * HEPATITIS C VIRAL LOAD PCR QUANT (11/21/2017 1:55 AM) Component Value Ref Range Hepatitis C PCR HCV RNA Not Detected, <12 IU/mL <12 IU/ML Quantitative Comment: The test method detects HCV viral load using the Rosario RealTime assay. Please correlate results with the clinical status of the patient. Log 10 HCV <1.08 <1.08 IU/mL Specimen Performing Laboratory Blood MAIN LAB [address] [place], [place] [id number] * HEPATITIS C AB (11/21/2017 1:55 AM) Component Value Ref Range Anti HCV NEG NEG-NEG Specimen Performing Laboratory Blood MAIN LAB [address] [place], [place] [id number] * HEPATITIS B CORE IGM AB (11/21/2017 1:55 AM) Component Value Ref Range Anti HBc IgM NEG NEG-NEG Specimen Performing Laboratory Blood MAIN LAB [address] [place], [place] [id number] * HEPATITIS B SURFACE AG (11/21/2017 1:55 AM) Component Value Ref Range HBsAg NEG NEG-NEG Specimen Performing Laboratory Blood [facility] MAIN LAB [address] [place] [address] * HEPATITIS A IGG (11/21/2017 1:55 AM) Component Value Ref Range Hepatitis A IGG NEG Note: Test type and methodology has changed.The [facility] lab has discontinued the test for Total Hep A Immunoglobulin.This test has been replaced with more specific testing.The tests for Hep A IgG and Hep A IgM are both now available and can be ordered. Specimen Performing Laboratory Blood [facility] [address] [place] [address] * TOTAL THYROXINE T4 (11/21/2017 1:55 AM) Component Value Ref Range T4 (Total) 5.3 (L) 6.1 - 12.3 MCG/DL Specimen Performing Laboratory Blood [facility] [address] [place] [address] * IRON + BINDING CAPACITY + %SAT+ FERRITIN (11/21/2017 1:55 AM) Component Value Ref Range Iron 64 50 - 185 MCG/DL Iron Binding-TIBC 289 270 - 380 MCG/DL % Saturation 22 (L) 28 - 42 % Ferritin 404 (H) 30 - 300 NG/ML Specimen Performing Laboratory Blood [address] [address] * CERULOPLASMIN (11/21/2017 1:55 AM) Component Value Ref Range Ceruloplasmin 15.6 (L) 20.0 - 60.0 mg/dL Specimen Performing Laboratory Blood [facility] [address] [place] [address] * ALCOHOL LEVEL (11/21/2017 1:55 AM) Component Value Ref Range Alcohol <10 MG/DL Specimen Performing Laboratory Blood [facility] [address] [place] [address] * ALPHA FETO PROTEIN (AFP) (11/21/2017 1:55 AM) Component Value Ref Range Alpha Feto Protein 4.0 0.0 - 15.0 NG/ML Specimen Performing Laboratory Blood [facility] [address] [place] [address] * LDH-LACTATE DEHYDROGENASE (11/21/2017 1:55 AM) Component Value Ref Range Lactate Dehydrogenase 830 (H) 100 - 210 U/L Specimen Performing Laboratory Blood [facility] [address] [place] [address] * GGTP (11/21/2017 1:55 AM) Component Value Ref Range GGTP 40 9 - 64 U/L Specimen Performing Laboratory Blood [facility] [address] [place] [address] * MAGNESIUM (11/21/2017 1:55 AM) Component Value Ref Range Magnesium 1.9 1.6 - 2.6 mg/dL Specimen Performing Laboratory Blood [facility] [address] [place] [address] * LIPASE (11/21/2017 1:55 AM) Component Value Ref Range Lipase 935 (H) 11 - 82 U/L Specimen Performing Laboratory Blood [facility] [address] [place] [address] * AMYLASE (11/21/2017 1:55 AM) Component Value Ref Range Amylase 588 (H) 24 - 100 U/L Specimen Performing Laboratory Blood [facility] [address] [place], [place] [id number] * LIPID PROFILE (11/21/2017 1:55 AM) Component [...] than 130 mg/dL. Specimen Performing Laboratory Blood [facility] [address] [place] [address] * PTT (APTT) (11/21/2017 1:55 AM) Component Value Ref Range APTT 22.6 21.0 - 39.0 SEC Specimen Performing Laboratory Blood [facility] [address] [place] [address] * PROTIME INR (PT) (11/21/2017 1:55 AM) Component Value Ref Range INR 1.2 0.8 - 1.2 Specimen Performing Laboratory Blood [facility] [address] [place], [place] [id number] * CBC AND DIFF (11/21/2017 1:55 AM) [...] K/UL Specimen Performing Laboratory Blood MAIN LAB [address] [place] [address] * HEMOGLOBIN A1C (11/21/2017 1:55 AM) Component Value Ref Range Hemoglobin A1C 10.1 (H) 4.0 - 6.0 % Comment: The ADA recommends that most patients with type 1 and type 2 diabetes maintain an A1c level <7%. Specimen Performing Laboratory Blood MAIN LAB [address] [place] [address] * TSH WITH FREE T4 REFLEX (11/21/2017 1:55 AM) Component Value Ref Range TSH 1.070 0.35 - 5.00 MCU/ML Specimen Performing Laboratory Blood MAIN LAB [address] [place] [address] * LACTIC ACID (BG - RAPID LACTATE) (11/21/2017 1:55 AM) Component Value Ref Range Lactic Acid,BG 2.9 (H) 0.5 - 2.0 MMOL/L Specimen Performing Laboratory Blood MAIN LAB [address] [place] [address] * ACETAMINOPHEN LEVEL (11/21/2017 1:55 AM) Component Value Ref Range Acetaminophen 36.0 (H) <20.1 MCG/ML Specimen Performing Laboratory Blood MAIN LAB [address] [place] [address] in this encounter Visit Diagnoses Diagnosis Other [...] wound into cavity NORMA (acute kidney injury) ([facility]) Acute kidney failure, unspecified Streptococcal pneumonia ([facility]) Pneumonia due to unspecified Streptococcus Admitting Diagnoses [...] CDT 40 mEq, Oral, ONCE, 1 dose, [facility] 11/23/17 at 0430 potassium chloride SR (K-DUR) [...] CDT 40 mEq, Oral, ONCE, 1 dose, [facility] 11/27/17 at 0845, Do NOT break or [...] mg (2 packet), Oral, ONCE, 1 dose, [facility] 11/23/17 at 0715, NEUTRAPHOS or Phos-NaK -- [...]
--- NOTE | 2017-12-29 23:12 | ED Psychosocial ---
General Chief Complaint: Psych/Social Disorder Stated Complaint: SUICIDAL/WANTS TO HURT HIMSELF Nursing Triage Note: Patient reports is wanting to . patient reports he was here recently for the samething. patient states that he was here for 3 or 4 days and was sent home but he was not ready. patient does not have a plan but states he did not the 1st time either Source: patient Exam Limitations: no limitations History of Present Illness Date Seen by Provider: Dec 29, 2017 Time Seen by Provider: 23:00 Initial Comments Patient reports the ER by private conveyance with a chief complaint that he is suicidal. He does not have a plan. He has had a suicide attempt in the past where he got a gun but did not use it on himself. He does not follow with a psychiatrist or psychologist nor does he attend any kind of counseling but he does have a primary care provider Jena Lemus at [facility]. He is not on any psychiatric medicines. He says however he just got out of [facility] [place] [facility] about 2-3 weeks ago and they gave him a shot of Invega. He is also been inpatient at [facility] in [place], [place]. He says his goal tonight is to get help and he wants to go inpatient. When asked if he has any specific reason why he is feeling suicidal he says he's just been under a lot of pressure lately and does not go into any further detail when probed. He has a history of diabetes for which she is on Levemir and NovoLog and he says he just his own insulin between 25 30 units Levemir once a day. Uses a NovoLog about 20 units with meals. He says his blood sugar this morning was 88 fasting. Allergies and Home Medications Allergies Coded Allergies: Cephalexin Monohydrate (Verified Adverse Reaction, Mild, 07/18/11) erythromycin base (Verified Adverse Reaction, Mild, 07/18/11) Home Medications Fluoxetine HCl 20 Mg Capsule, 20 MG PO DAILY, (Reported) Insulin Aspart 100 Unit/1 Ml Susp, 20-25 UNIT SQ AC, (Reported) Insulin Glargine,Hum.rec.anlog 100 Unit/1 Ml Vial, 22 UNITS SC HS, (Reported) Simvastatin 20 Mg Tablet, 20 MG PO DAILY, (Reported) Patient Home Medication List Home Medication List Reviewed: Yes Constitutional: No chills, No diaphoresis EENTM: No ear discharge, No ear pain Respiratory: No cough, No short of breath Cardiovascular: No chest pain, No edema, No Hx of Intervention, No palpitations Gastrointestinal: No abdominal pain, No constipation, No diarrhea, No nausea Genitourinary: No discharge, No dysuria Musculoskeletal: No back pain, No joint pain Skin: No pruritus, No rash Past Nhucjzf-Sbkhmp-Sgjklm Hx Patient Social History Alcohol Use: Denies Use Recreational Drug Use: No Smoking Status: Current Everyday Smoker Type Used: Cigarettes 2nd Hand Smoke Exposure: No Recent Foreign Travel: No Contact w/Someone Who Travel: No Recent Infectious Disease Expo: No Recent Hopitalizations: No Immunizations Up To Date Tetanus Booster (TDap): Less than 5yrs Date of Influenza Vaccine: Apr 10, 2016 Seasonal Allergies Seasonal Allergies: No Past Medical History Surgeries: Yes (NEGAR LICONAEN) Abdominal, Tonsillectomy Respiratory: No Cardiac: No High Cholesterol, Hypertension Neurological: No Reproductive Disorders: No Genitourinary: No Gastrointestinal: Yes Gastroesophageal Reflux, Hiatal Hernia Musculoskeletal: No Endocrine: Yes (Type 1, history of DKA) Diabetes, Insulin dep HEENT: No Cancer: No Psychosocial: Yes Suicide Attempts Integumentary: No Blood Disorders: No Adverse Reaction/Blood Tranf: No Family Medical History Cataract 03 FATHER, Onset:60 years & older Family history: Arthritis 03 FATHER, Onset:60 years & older Family history: Diabetes mellitus 03 FATHER, Onset:60 years & older Hypercholesterolemia 03 FATHER, Onset:60 years & older No Family History of: Abdominal aortic aneurysm Renville's disease Alcoholism Aphasia Cancer Cancer of colon Chest pain Congenital heart disease Congestive heart failure Cystic fibrosis Dementia Dysphagia Family history: Allergy Family history: Alzheimer's disease Family history: Asthma Family history: Breast disease Family history: Cardiovascular disease Family history: Coronary thrombosis Family history: Gastrointestinal disease Family history: Glaucoma Family history: Hypertension Family history: Osteoporosis Family history: Thyroid disorder Headache Hearing loss Heart disease Hereditary disease History of - anemia History of - respiratory disease History of drug abuse Human immunodeficiency virus (HIV) seropositivity Infertile Kidney disease Malignant neoplasm of lung Myocardial infarction Parkinson's disease Prostate cancer Psychotic disorder Seizure disorder Stroke Tuberculosis Visual impairment Diabetes Physical Exam Vital Signs Vital Signs - First Documented 12/29/17 21:55 Temp 98.2 Pulse 102 Resp 18 B/P (MAP) 128/78 (95) Pulse Ox 98 Capillary Refill : Less Than 3 Seconds General Appearance: WD/WN, no apparent distress HEENT: PERRL/EOMI, pharynx normal Respiratory: chest non-tender, lungs clear, normal breath sounds, no respiratory distress, no accessory muscle use Cardiovascular: normal peripheral pulses, regular rate, rhythm, no edema Peripheral Pulses: 2+ Radial Pulses (R), 2+ Radial Pulses (L) Gastrointestinal: non tender, soft Extremities: normal inspection, no pedal edema, normal capillary refill Neurologic/Psychiatric: alert, oriented x 3, other (suicidal ideation without a plan) Procedures/Interventions Date of ETT Placement: November 20, 2017 Time of ETT Placement: 929 Progress/Results/Core Measures Results/Orders Lab Results Laboratory Tests Test 12/29/17 23:20 12/29/17 23:25 12/30/17 01:30 12/30/17 02:18 Range/Units Urine Color YELLOW Urine Clarity CLEAR Urine pH 6.5 5-9 Urine Specific [place] 1.010 L 1.016-1.022 Urine Protein 1+ H NEGATIVE Urine Glucose (UA) 4+ H NEGATIVE Urine Ketones NEGATIVE NEGATIVE Urine Nitrite NEGATIVE NEGATIVE Urine Bilirubin NEGATIVE NEGATIVE Urine Urobilinogen NORMAL NORMAL MG/DL Urine Leukocyte Esterase NEGATIVE NEGATIVE Urine RBC (Auto) NEGATIVE NEGATIVE Urine RBC RARE /HPF Urine WBC NONE /HPF Urine Squamous Epithelial Cells RARE /HPF Urine Crystals NONE /LPF Urine Bacteria NEGATIVE /HPF Urine Casts NONE /LPF Urine Mucus NEGATIVE /LPF Urine Culture Indicated NO Urine Opiates Screen NEGATIVE NEGATIVE Urine Oxycodone Screen NEGATIVE NEGATIVE Urine Methadone Screen NEGATIVE NEGATIVE Urine Propoxyphene Screen NEGATIVE NEGATIVE Urine Barbiturates Screen NEGATIVE NEGATIVE Ur Tricyclic Antidepressants Screen NEGATIVE NEGATIVE Urine Phencyclidine Screen NEGATIVE NEGATIVE Urine Amphetamines Screen NEGATIVE NEGATIVE Urine Methamphetamines Screen NEGATIVE NEGATIVE Urine Benzodiazepines Screen NEGATIVE NEGATIVE Urine Cocaine Screen NEGATIVE NEGATIVE Urine Cannabinoids Screen NEGATIVE NEGATIVE White Blood Count 8.8 4.3-11.0 10^3/uL Red Blood Count 4.16 L 4.35-5.85 10^6/uL Hemoglobin 12.7 L 13.3-17.7 G/DL Hematocrit 38 L 40-54 % Mean Corpuscular Volume 90 80-99 FL Mean Corpuscular Hemoglobin 31 25-34 PG Mean Corpuscular Hemoglobin Concent 34 32-36 G/DL Red Cell Distribution Width 13.9 10.0-14.5 % Platelet Count 326 130-400 10^3/uL Mean Platelet Volume 9.8 7.4-10.4 FL Sodium Level 136 135-145 MMOL/L Potassium Level 4.1 3.6-5.0 MMOL/L Chloride Level 105 98-107 MMOL/L Carbon Dioxide Level 18 L 21-32 MMOL/L Anion Gap 13 5-14 MMOL/L Blood Urea Nitrogen 12 7-18 MG/DL Creatinine 0.95 0.60-1.30 MG/DL Estimat Glomerular Filtration Rate > 60 BUN/Creatinine Ratio 13 Glucose Level 335 H 70-105 MG/DL Calcium Level 9.0 8.5-10.1 MG/DL Total Bilirubin 0.3 0.1-1.0 MG/DL Aspartate Amino Transf (AST/SGOT) 15 5-34 U/L Alanine Aminotransferase (ALT/SGPT) 18 0-55 U/L Alkaline Phosphatase 79 40-136 U/L Total Protein 6.0 L 6.4-8.2 GM/DL Albumin 3.9 3.2-4.5 GM/DL Salicylates Level < 5.0 L 5.0-20.0 MG/DL Acetaminophen Level < 10 L 10-30 UG/ML Serum Alcohol < 10 <10 MG/DL Glucometer 305 H 265 H 70-110 MG/DL Test 12/30/17 02:41 Range/Units Glucometer 217 H 70-110 MG/DL My Orders Orders - MICHELLE HICKMAN Ua Culture If Indicated (12/29/17 23:08) Comprehensive Metabolic Panel (12/29/17 23:08) Alcohol (12/29/17 23:08) Drug Screen Stat (Urine) (12/29/17 23:08) Acetaminophen (12/29/17 23:08) Salicylate (12/29/17 23:08) Cbc No Diff (12/29/17 23:08) Ekg Tracing (12/29/17 23:53) Insulin Aspart (Novolog) (Novolog (Charg (12/30/17 01:00) Insulin Determir (Per Unit) (Levemir (Pe (12/30/17 21:00) Insulin Determir (Per Unit) (Levemir (Pe (12/30/17 00:58) Accucheck Stat ONCE (12/30/17 01:28) Insulin (Regular) Human (Humulin R (Per (12/30/17 01:45) Accucheck Stat ONCE (12/30/17 02:16) Accucheck Stat ONCE (12/30/17 02:40) Medications Given in ED Vital Signs/I&O Blood Pressure Mean: 95 Progress Progress Note #1: Time: 23:49 Progress Note Gertrudis: Send labs EKG note and face sheet to their fax number. [phone] Fax sent. Progress Note #2: Time: 01:32 Progress Note Repeat blood glucose is 305. We are going to give another NovoLog 20 units of insulin. 0235: Repeat blood sugar is 214. Initial ECG Impression Date: Dec 29, 2017 Initial ECG Impression Time: 23:55 Initial ECG Rate: 75 Initial ECG Rhythm: Normal Sinus Initial ECG Intervals: Normal Initial ECG Impression: Normal Initial ECG Comparisson: Unchanged Comment No ST elevation or depression Departure Impression Primary Impression: Suicidal ideation Disposition: 65 XFER TO PSYCH HOSP/UNIT Condition: Stable Transfer Time Spoke to Accepting Phy: 02:45 Transfer Progress Notes Gertrudis will accept after a Dr to Dr steward. Dr Irwin and [facility] dye boarding machine operator Discussed the case with Dr. Irwin and he agrees to accept the patient. Room 106b Transfer Time: 03:21 Transfer Facility: [place], [place] Method of Transfer: Private Vehicle ([employer]) Departure-Patient Inst. Referrals: [facility] (PCP/Family) Primary Care Physician Copy Copies To 1: WON PATRICIA TITUS J Dec 29, 2017 23:12
[2017-12-29 23:49] LABS: HEMOGLOBIN 12.7 G/DL (13.3-17.7); MEAN PLATELET VOLUME 9.8 FL (7.4-10.4); RED BLOOD COUNT 4.16 10^6/uL (4.35-5.85); RED CELL DISTRIBUTION WIDTH 13.9 % (10.0-14.5); WHITE BLOOD COUNT 8.8 10^3/uL (4.3-11.0)
[2017-12-29 23:51] LABS: BACTERIA,URINE NEGATIVE /HPF; BILIRUBIN,URINE NEGATIVE (NEGATIVE); CLARITY,URINE CLEAR; COLOR,URINE YELLOW; GLUCOSE, URINE (UA) 4+ (NEGATIVE); KETONES,URINE NEGATIVE (NEGATIVE); LEUKOCYTE ESTERASE ,URINE NEGATIVE (NEGATIVE); NITRITE,URINE NEGATIVE (NEGATIVE); PH,URINE 6.5 (5-9); PROTEIN,URINE 1+ (NEGATIVE); RBC,URINE RARE /HPF; SQUAMOUS EPITHELIAL CELL,UR RARE /HPF; UROBILINOGEN,URINE NORMAL (NORMAL)
[2017-12-30 00:04] LABS: ALANINE AMINOTRANSFERASE 18 U/L (0-55); ALBUMIN 3.9 GM/DL (3.2-4.5); ALKALINE PHOSPHATASE 79 U/L (40-136); BILIRUBIN,TOTAL 0.3 MG/DL (0.1-1.0); BUN/CREATININE RATIO 13; CARBON DIOXIDE 18 MMOL/L (21-32); CHLORIDE 105 MMOL/L (98-107); CREATININE SERUM 0.95 MG/DL (0.60-1.30); GFR ESTIMATED > 60; GLUCOSE 335 MG/DL (70-105); POTASSIUM 4.1 MMOL/L (3.6-5.0); SALICYLATE < 5.0 MG/DL (5.0-20.0); SODIUM 136 MMOL/L (135-145)
[2017-12-30 00:06] LABS: ACETAMINOPHEN < 10 UG/ML (10-30)
[2017-12-30 00:08] LABS: AMPHETAMINE SCREEN, URINE NEGATIVE (NEGATIVE); BARBITURATE SCREEN URINE NEGATIVE (NEGATIVE); BENZODIAZEPINES SCREEN URINE NEGATIVE (NEGATIVE); CANNABINOID SCREEN, URINE NEGATIVE (NEGATIVE); COCAINE SCREEN URINE NEGATIVE (NEGATIVE); METHADONE STAT NEGATIVE (NEGATIVE); METHAMPHETAMINE SCREEN URINE S NEGATIVE (NEGATIVE); OPIATE SCREEN URINE NEGATIVE (NEGATIVE); OXYCODONE STAT NEGATIVE (NEGATIVE); PROPOXYPHENE STAT NEGATIVE (NEGATIVE); TRICYCLIC ANTIDEPRESSANTS SCRE NEGATIVE (NEGATIVE)
[2017-12-30] MEDS ORDERED: inSUlin DETERMIR 1 UNIT/0.01 ML (LEVEMIR) CHARGE PER UNIT SQ ONE (00:58)
[2017-12-30] MEDS ORDERED: inSUlin ASPART (NovoLOG) 1 UNIT/0.01 ML (CHARGE PER UNIT) SC ONE (01:00)
[2017-12-30] MEDS ORDERED: inSUlin (REGULAR) HUMAN 1 UNIT/0.01 ML (CHARGE PER UNIT) SC ONE (01:45)
[2017-12-30 03:21] VITALS: BP 128/78
[2017-12-30] MEDS ORDERED: inSUlin DETERMIR 1 UNIT/0.01 ML (LEVEMIR) CHARGE PER UNIT SQ SCH (21:00)
== END 2017-12-30 03:21 ==
LOC: EDUNIT# 21:31 → ER 21:32
DX: R45.851 Suicidal ideations (principal); E78.00 Pure hypercholesterolemia, unspecified; I10 Essential (primary) hypertension; K21.9 Gastro-esophageal reflux disease without esophagitis; E10.9 Type 1 diabetes mellitus without complications; F17.210 Nicotine dependence, cigarettes, uncomplicated; Z91.5 Personal history of self-harm; Z90.89 Acquired absence of other organs; Z79.4 Long term (current) use of insulin; Z88.1 Allergy status to other antibiotic agents
CPT/HCPCS: 36415; 80053; 80306; 80320; 80329; 81000; 82962; 85027; 93005; 96372

== ENCOUNTER 2018-02-03 20:58 | Emergency (ER) | payer MEDICAID ==
[~2018-02-03] VITALS: Ht 170.2 cm; Wt 72.7 kg
[2018-02-03 21:49] LABS: BASOPHILS % (AUTO) 0 % (0-10); EOSINOPHILS # (AUTO) 0.3 10^3/uL (0.0-0.3); EOSINOPHILS % (AUTO) 2 % (0-10); HEMATOCRIT 38 % (40-54); LYMPHOCYTES # (AUTO) 2.3 X 10^3 (1.0-4.0); LYMPHOCYTES % (AUTO) 18 % (12-44); MEAN CORPUSCULAR HEMOGLOBIN 30 PG (25-34); MEAN CORPUSCULAR HGB CONC 34 G/DL (32-36); MEAN CORPUSCULAR VOLUME 89 FL (80-99); MEAN PLATELET VOLUME 9.5 FL (7.4-10.4); MONOCYTES # (AUTO) 0.6 X 10^3 (0.0-1.0); MONOCYTES % (AUTO) 5 % (0-12); NEUTROPHILS # (AUTO) 9.8 X 10^3 (1.8-7.8); NEUTROPHILS % (AUTO) 75 % (42-75); PLATELET COUNT 353 10^3/uL (130-400); RED BLOOD COUNT 4.33 10^6/uL (4.35-5.85); RED CELL DISTRIBUTION WIDTH 13.8 % (10.0-14.5)
[2018-02-03 21:55] LABS: BILIRUBIN,URINE NEGATIVE (NEGATIVE); CLARITY,URINE CLEAR; COLOR,URINE YELLOW; GLUCOSE, URINE (UA) NEGATIVE (NEGATIVE); KETONES,URINE NEGATIVE (NEGATIVE); LEUKOCYTE ESTERASE ,URINE NEGATIVE (NEGATIVE); NITRITE,URINE NEGATIVE (NEGATIVE); PH,URINE 6 (5-9); PROTEIN,URINE NEGATIVE (NEGATIVE); UROBILINOGEN,URINE NORMAL (NORMAL)
[2018-02-03 22:06] LABS: AMPHETAMINE SCREEN, URINE NEGATIVE (NEGATIVE); BARBITURATE SCREEN URINE NEGATIVE (NEGATIVE); BENZODIAZEPINES SCREEN URINE NEGATIVE (NEGATIVE); CANNABINOID SCREEN, URINE NEGATIVE (NEGATIVE); COCAINE SCREEN URINE NEGATIVE (NEGATIVE); METHADONE STAT NEGATIVE (NEGATIVE); METHAMPHETAMINE SCREEN URINE S NEGATIVE (NEGATIVE); OPIATE SCREEN URINE NEGATIVE (NEGATIVE); OXYCODONE STAT NEGATIVE (NEGATIVE); PROPOXYPHENE STAT NEGATIVE (NEGATIVE); TRICYCLIC ANTIDEPRESSANTS SCRE NEGATIVE (NEGATIVE)
[2018-02-03 22:09] LABS: BACTERIA,URINE TRACE /HPF
[2018-02-03 22:12] LABS: ALANINE AMINOTRANSFERASE 15 U/L (0-55); ALBUMIN 3.7 GM/DL (3.2-4.5); ALKALINE PHOSPHATASE 105 U/L (40-136); BILIRUBIN,TOTAL 0.2 MG/DL (0.1-1.0); BUN/CREATININE RATIO 15; CALCIUM 9.6 MG/DL (8.5-10.1); CARBON DIOXIDE 24 MMOL/L (21-32); CHLORIDE 98 MMOL/L (98-107); CREATININE SERUM 0.78 MG/DL (0.60-1.30); GFR ESTIMATED > 60; GLUCOSE 108 MG/DL (70-105); POTASSIUM 3.5 MMOL/L (3.6-5.0); SALICYLATE < 5.0 MG/DL (5.0-20.0); SODIUM 134 MMOL/L (135-145); TOTAL PROTEIN 5.9 GM/DL (6.4-8.2)
[2018-02-03 22:16] LABS: ACETAMINOPHEN < 10 UG/ML (10-30)
[2018-02-03 22:32] LABS: TSH (THYROID ANALYZER) 1.63 UIU/ML (0.35-4.94)
--- NOTE | 2018-02-04 01:10 | ED Psychosocial ---
General Chief Complaint: Psych/Social Disorder Stated Complaint: THOUGHTS OF SELF HARM Nursing Triage Note: PRESENTED TO ER FROM HOME STATING HE FEELS LIKE HE WANTS TO HARM HIMSELF AND HAS A PLAN TO EITHER TAKE PILLS OR STAB HIMSELF. IS HEARING VOICES AND/OR HAVING THOUGHTS TELLING HIM TO HARM HIMSELF. CALM, COOPERATIVE. HAS HAD PREVIOUS SUIDICDE ATTEMPT AND WAS TRANSFERRED TO PER PT. Source: patient Exam Limitations: no limitations History of Present Illness Date Seen by Provider: Feb 03, 2018 Time Seen by Provider: 21:23 Initial Comments PT ARRIVES VIA POV FROM HOME PT'S MOM CALLED [facility], THEN [facility] CALLED HERE, INFORMING STAFF THAT PT WOULD BE COMING HERE. PT STATES HE HAS BEEN HAVING SUICIDAL THOUGHTS SINCE YESTERDAY AND IS MUCH WORSE TODAY STATES "I JUST DON'T WANT TO LIVE ANYMORE" --STATES THIS VERY [id number] PT STATES HE DOES NOT FEEL SAFE GOING HOME--STATES HE KNOWS HE WILL TRY TO HARM HIMSELF DENIES ANY SPECIFIC TRIGGER FOR THESE THOUGHTS STATES "I'D JUST DO WHAT EVER IT TAKES TO DO THE JOB--JUMP OUT OF A CAR, OR STAB MYSELF, OR TAKE A BUNCH OF PILLS" PT STATES HE HAS NOT MADE ANY RECENT ATTEMPT STATES HE HAS BEEN HEARING VOICES AND THEY HAVE BEEN TELLING HIM TO KILL HIMSELF PT STATES THERE ARE KNIVES IN THE HOUSE, BUT NO GUNS. HE TAKES HIS MEDICATIONS ON HIS OWN--ARE NOT MONITORED BY ANYONE. , AND ARE NOT LOCKED UP NORMALLY. (STATES THEY ARE LOCKED NOW BECAUSE HE HAS BEEN AT HIS DAUGHTER'S HOUSE AND MEDS WERE LOCKED BY HIM SO HER CHILDREN COULD NOT GET INTO THEM. ) PT STATES HIS ALMOST 8 YEARS AGO ( BECOMES TEARFUL WHEN HE MENTIONS THIS ) STATES CURRENTLY HE LIVES WITH HIS MOTHER. STATES HE HAS A LONG HISTORY OF MENTAL HEALTH PROBLEMS AND HAS MADE SUICIDE ATTEMPTS IN THE PAST, AND HAS BEEN HOSPITALIZED SEVERAL TIMES FOR MENTAL HEALTH ISSUES. PT STATES HE TRIED TO KILL HIMSELF A FEW MONTHS AGO, BY TAKING AN OVERDOSE OF TYLENOL. STATES "I ALMOST " AND WAS ADMITTED TO AT THAT TIME. STATES HIS LAST ADMIT WAS IN DECEMBER FOR SUICIDAL IDEATION, BUT NO ATTEMPT AT THAT TIME. [facility] HAS FOLLOWED UP WITH [facility] SINCE THAT ADMIT, AND HAS SOME MEDICATION ADJUSTMENTS, BUT DOES NOT KNOW NAMES OF ANY OF HIS MEDICATIONS OR WHICH ONES WHERE CHANGED OR ADJUSTED. THIS IS HIS 4TH VISIT HERE SINCE 12/13/17 FOR SUICIDAL IDEATIONS. PT HAS HAD MULTITUDE OF VISITS FOR VARIOUS COMPLAINTS, MANY FOR DIABETES- RELATED ISSUES/DKA AND FOR PSYCH ISSUES. WAS ADMITTED IN SEPTEMBER AND AGAIN IN OCTOBER FOR DKA HAS HISTORY OF NON-COMPLIANCE PT STATES HIS BLOOD GLUCOSE WAS IN 200'S TONIGHT, AND TOOK 20 UNITS OF NOVOLOG AND 20 UNITS OF LANTUS PRIOR TO ARRIVAL. PCP: WILBERT, YOVANY CASSIDY PSYCH: [facility]. Allergies and Home Medications Allergies Coded Allergies: Cephalexin Monohydrate (Verified Adverse Reaction, Mild, 07/18/11) erythromycin base (Verified Adverse Reaction, Mild, 07/18/11) Home Medications Fluoxetine HCl 20 Mg Capsule, 20 MG PO DAILY, (Reported) Insulin Aspart 100 Unit/1 Ml Susp, 20-25 UNIT SQ AC, (Reported) Insulin Glargine,Hum.rec.anlog 100 Unit/1 Ml Vial, 22 UNITS SC HS, (Reported) Simvastatin 20 Mg Tablet, 20 MG PO DAILY, (Reported) Patient Home Medication List Home Medication List Reviewed: Yes Constitutional: no symptoms reported EENTM: no symptoms reported Respiratory: no symptoms reported Cardiovascular: no symptoms reported Gastrointestinal: no symptoms reported Genitourinary: no symptoms reported Musculoskeletal: no symptoms reported Skin: no symptoms reported Psychiatric/Neurological: See HPI, Depressed Past Jymwoeq-Soxbye-Tkgzny Hx Patient Social History Alcohol Use: Denies Use Recreational Drug Use: Yes (THC WHEN YOUNG) Smoking Status: Current Everyday Smoker (2 PPD) Type Used: Cigarettes (2 PPD) 2nd Hand Smoke Exposure: No Recent Foreign Travel: No Contact w/Someone Who Travel: No Recent Infectious Disease Expo: No Recent Hopitalizations: No Physical Abuse: No Sexual Abuse: No Mistreated: No Fear: No Immunizations Up To Date Tetanus Booster (TDap): Less than 5yrs Date of Influenza Vaccine: Apr 10, 2016 Seasonal Allergies Seasonal Allergies: No Past Medical History Surgeries: Yes (LAP SWATHI FUNDOPLICATIONS) Abdominal, Tonsillectomy Respiratory: No Cardiac: Yes High Cholesterol, Hypertension Neurological: No Reproductive Disorders: No Genitourinary: No Gastrointestinal: Yes (S/P LAP SWATHI FUNDOPLICATION) Gastroesophageal Reflux, Hiatal Hernia Musculoskeletal: No Endocrine: Yes (Type 1, history of DKA MULTIPLE TIMES) Diabetes, Insulin dep HEENT: No Cancer: No Psychosocial: Yes (TYLENOL OVERDOSE/ SUICIDE ATTEMPT AND TRANSFERRED TO [facility]; MULTIPLE PSYCH ADMITS. ) Anxiety, Suicide Attempts, Depression Nursing Suicide Risk Score: 13 Nursing Suicide Risk Notes: PLACED IN ROOM 8 PSYCH/SUICIDE PREPARED ROOM Integumentary: No Blood Disorders: No Adverse Reaction/Blood Tranf: No Family Medical History Cataract 03 FATHER, Onset:60 years & older Family history: Arthritis 03 FATHER, Onset:60 years & older Family history: Diabetes mellitus 03 FATHER, Onset:60 years & older Hypercholesterolemia 03 FATHER, Onset:60 years & older No Family History of: Abdominal aortic aneurysm Maxime's disease Alcoholism Aphasia Cancer Cancer of colon Chest pain Congenital heart disease Congestive heart failure Cystic fibrosis Dementia Dysphagia Family history: Allergy Family history: Alzheimer's disease Family history: Asthma Family history: Breast disease Family history: Cardiovascular disease Family history: Coronary thrombosis Family history: Gastrointestinal disease Family history: Glaucoma Family history: Hypertension Family history: Osteoporosis Family history: Thyroid disorder Headache Hearing loss Heart disease Hereditary disease History of - anemia History of - respiratory disease History of drug abuse Human immunodeficiency virus (HIV) seropositivity Infertile Kidney disease Malignant neoplasm of lung Myocardial infarction Parkinson's disease Prostate cancer Psychotic disorder Seizure disorder Stroke Tuberculosis Visual impairment Diabetes Physical Exam Vital Signs - First Documented 02/03/18 02/04/18 21:12 04:25 Temp 98.6 Pulse 100 Resp 17 B/P (MAP) 118/77 (91) Pulse Ox 98 O2 Delivery Room Air Capillary Refill : Less Than 3 Seconds Height, Weight, BMI Height: 5'7.00" Weight: 160lbs. 3.0oz. 72.219017ig; 26.9 BMI Method:Stated General Appearance: WD/WN, no apparent distress HEENT: PERRL/EOMI Neck: normal inspection Respiratory: normal breath sounds, no respiratory distress, no accessory muscle use Cardiovascular: regular rate, rhythm, no edema, no JVD, no murmur Gastrointestinal: non tender, soft Neurologic/Psychiatric: student loan counselor II-XII nml as tested, no motor/sensory deficits, alert, normal mood/affect (CALM. COOPERATIVE AND [id number]), oriented x 3 Appearance/Memory: appropriate appearance, appropriate insight, no memory impairment Behavior/Eye Contact: cooperative, good eye contact, normal speech Thoughts/Hallucinations: normal thought pattern, auditory hallucinations (PT STATES VOICES HAVE BEEN TELLING HIM TO HURT HIMSELF. ) Skin: normal color, warm/dry Procedures/Interventions Date of ETT Placement: November 20, 2017 Time of ETT Placement: 929 Progress/Results/Core Measures Results/Orders Lab Results Laboratory Tests Test 02/03/18 21:24 02/03/18 21:37 02/03/18 21:45 02/04/18 01:38 Range/Units Glucometer 114 H 73 70-110 MG/DL White Blood Count 13.0 H 4.3-11.0 10^3/uL Red Blood Count 4.33 L 4.35-5.85 10^6/uL Hemoglobin 13.0 L 13.3-17.7 G/DL Hematocrit 38 L 40-54 % Mean Corpuscular Volume 89 80-99 FL Mean Corpuscular Hemoglobin 30 25-34 PG Mean Corpuscular Hemoglobin Concent 34 32-36 G/DL Red Cell Distribution Width 13.8 10.0-14.5 % Platelet Count 353 130-400 10^3/uL Mean Platelet Volume 9.5 7.4-10.4 FL Neutrophils (%) (Auto) 75 42-75 % Lymphocytes (%) (Auto) 18 12-44 % Monocytes (%) (Auto) 5 0-12 % Eosinophils (%) (Auto) 2 0-10 % Basophils (%) (Auto) 0 0-10 % Neutrophils # (Auto) 9.8 H 1.8-7.8 X 10^3 Lymphocytes # (Auto) 2.3 1.0-4.0 X 10^3 Monocytes # (Auto) 0.6 0.0-1.0 X 10^3 Eosinophils # (Auto) 0.3 0.0-0.3 10^3/uL Basophils # (Auto) 0.0 0.0-0.1 10^3/uL Sodium Level 134 L 135-145 MMOL/L Potassium Level 3.5 L 3.6-5.0 MMOL/L Chloride Level 98 98-107 MMOL/L Carbon Dioxide Level 24 21-32 MMOL/L Anion Gap 12 5-14 MMOL/L Blood Urea Nitrogen 12 7-18 MG/DL Creatinine 0.78 0.60-1.30 MG/DL Estimat Glomerular Filtration Rate > 60 BUN/Creatinine Ratio 15 Glucose Level 108 H 70-105 MG/DL Calcium Level 9.6 8.5-10.1 MG/DL Corrected Calcium 9.8 8.5-10.1 MG/DL Total Bilirubin 0.2 0.1-1.0 MG/DL Aspartate Amino Transf (AST/SGOT) 16 5-34 U/L Alanine Aminotransferase (ALT/SGPT) 15 0-55 U/L Alkaline Phosphatase 105 40-136 U/L Total Protein 5.9 L 6.4-8.2 GM/DL Albumin 3.7 3.2-4.5 GM/DL TSH [place] Testing 1.63 0.35-4.94 UIU/ML Salicylates Level < 5.0 L 5.0-20.0 MG/DL Acetaminophen Level < 10 L 10-30 UG/ML Serum Alcohol < 10 <10 MG/DL Urine Color YELLOW Urine Clarity CLEAR Urine pH 6 5-9 Urine Specific [place] 1.010 L 1.016-1.022 Urine Protein NEGATIVE NEGATIVE Urine Glucose (UA) NEGATIVE NEGATIVE Urine Ketones NEGATIVE NEGATIVE Urine Nitrite NEGATIVE NEGATIVE Urine Bilirubin NEGATIVE NEGATIVE Urine Urobilinogen NORMAL NORMAL MG/DL Urine Leukocyte Esterase NEGATIVE NEGATIVE Urine RBC (Auto) NEGATIVE NEGATIVE Urine RBC NONE /HPF Urine WBC NONE /HPF Urine Squamous Epithelial Cells NONE /HPF Urine Crystals NONE /LPF Urine Bacteria TRACE /HPF Urine Casts NONE /LPF Urine Mucus NEGATIVE /LPF Urine Culture Indicated NO Urine Opiates Screen NEGATIVE NEGATIVE Urine Oxycodone Screen NEGATIVE NEGATIVE Urine Methadone Screen NEGATIVE NEGATIVE Urine Propoxyphene Screen NEGATIVE NEGATIVE Urine Barbiturates Screen NEGATIVE NEGATIVE Ur Tricyclic Antidepressants Screen NEGATIVE NEGATIVE Urine Phencyclidine Screen NEGATIVE NEGATIVE Urine Amphetamines Screen NEGATIVE NEGATIVE Urine Methamphetamines Screen NEGATIVE NEGATIVE Urine Benzodiazepines Screen NEGATIVE NEGATIVE Urine Cocaine Screen NEGATIVE NEGATIVE Urine Cannabinoids Screen NEGATIVE NEGATIVE Test 02/04/18 04:18 02/04/18 05:35 02/04/18 05:42 Range/Units Glucometer 321 H 372 H 320 H 70-110 MG/DL My Orders Orders - CARLYN PRUITT DO Ua Culture If Indicated (02/03/18 21:21) Thyroid Analyzer (02/03/18 21:21) Drug Screen Stat (Urine) (02/03/18 21:21) Cbc With Automated Diff (02/03/18 21:21) Comprehensive Metabolic Panel (02/03/18 21:21) Alcohol (02/03/18 21:21) Acetaminophen (02/03/18 21:21) Salicylate (02/03/18 21:21) Ekg Tracing (02/03/18 21:21) Accucheck Stat ONCE (02/04/18 01:20) Cho 45g/M 1snack (12-1500 Kevon) (02/04/18 Breakfast) Insulin (Regular) Human (Humulin R (Per (02/04/18 05:00) Accucheck Stat ONCE (02/04/18 05:33) Insulin (Regular) Human (Humulin R (Per (02/04/18 05:45) Insulin (Regular) Human (Humulin R (Per (02/04/18 04:57) Medications Given in ED Current Medications Medications Dose Ordered Sig/Cuauhtemoc Route Start Time Stop Time Status Last Admin Dose Admin Insulin Human Regular 10 unit ONCE ONCE IV 02/04/18 05:00 02/04/18 06:05 DC 02/04/18 05:00 10 UNIT Insulin Human Regular 10 unit ONCE ONCE SC 02/04/18 05:45 02/04/18 05:46 DC 02/04/18 05:52 10 UNIT Vital Signs/I&O 02/03/18 02/04/18 02/04/18 21:12 04:25 06:04 Temp 98.6 98.6 Pulse 100 86 86 Resp 17 17 B/P (MAP) 118/77 (91) 109/70 (83) 109/70 (83) Pulse Ox 98 98 O2 Delivery Room Air Room Air Room Air Blood Pressure Mean: 91 FSBG Bedside Testing Finger Stick Blood Glucose: 114 Blood Glucose Action Taken: RN AND DR NOTIFIED Progress Progress Note : Progress Note PT REMAINED CALM AND COOPERATIVE AND RESTED QUIETLY FOR ENTIRE ER STAY. BLOOD GLUCOSE DOWN TO 73--GAVE SANDWICH TRAY BLOOD GLUCOSE RECHECKED SHORTLY AFTER EATING, AND NOW BLOOD GLUCOSE IS UP TO 321. THEN 372 GIVEN REGULAR INSULIN SUB Q X 2 DOSES PRIOR TO TRANSFER. BLOOD GLUCOSE STARTING TO COME DOWN -320 AT TIME OF TRANSFER. PT'S BLOOD GLUCOSE FREQUENTLY IN 200-300 RANGE Initial ECG Impression Date: Feb 03, 2018 Initial ECG Impression Time: 21:25 Initial ECG Rate: 76 Initial ECG Rhythm: Normal Sinus Departure Communication (Admissions) [facility] CONTACTED BY RN. EMERSON MATT WILL BE OUT TO SEE PT. 2219--EMERSON HERE TO SEE PT 2340--EMERSON HAS CONTACTED [facility], [facility] [place], [facility], AND [facility]--NONE HAVE BEDS [facility] IN HAS A MALE BED. INFORMATION IS BEING FAXED. 0026--[facility] HAS CALLED BACK AND PHYSICIAN HAS DECLINED TRANSFER/ADMIT--NO REASON GIVEN 0028--CALLED ELOINA JOHNSON IN [place]. HAVE MALE BED, INFORMATION IS BEING FAXED. 0210--CALLED [facility]--HAVE RECEIVED PT'S INFORMATION. HAVE A COUPLE OF INTAKES TO PROCESS, BEFORE THEY CAN LOOK AT PT'S INFORMATION. THEY WILL CALL BACK 034--ELOINA JOHNSON CALLED. THEY ARE STARTING PT'S INTAKE EVALUATION NOW. 448--ELOINA JOHNSON CALLED. IS CONCERNED ABOUT FLUCTUANCE IN BLOOD GLUCOSE. ADVISED THAT READING OF 321 WAS RIGHT AFTER HE ATE, AND WAS DONE AT THEIR REQUEST. SCREENER WILL DISCUSS WITH THEIR AND CALL BACK. THIS DR HAS DECLINED PT BEFORE BECAUSE OF BLOOD GLUCOSE ISSUES WITH THIS PT. ADVISED THEM THAT I WOULD BE TREATING PT'S ELEVATED BLOOD GLUCOSE PRIOR TO TRANSPORT. 0502--ELOINA JOHNSON CALLED BACK. DR. EL HAS ACCEPTED THE PT FOR ADMIT. 0509--NIDIA CARRERO CONTACTED FOR SECURE TRANSPORT. 0555--NIDIA CARRERO HERE FOR TRANSPORT. Impression Primary Impression: Suicidal ideation Additional Impression: IDDM (insulin dependent diabetes mellitus) Disposition: 65 XFER TO PSYCH HOSP/UNIT Condition: Stable Departure-Patient Inst. Referrals: [facility] (PCP/Family) Primary Care Physician CARLYN PRUITT DO Feb 04, 2018 01:10
[2018-02-04 04:25] VITALS: BP 109/70
[2018-02-04] MEDS ORDERED: inSUlin (REGULAR) HUMAN 1 UNIT/0.01 ML (CHARGE PER UNIT) ONE (04:57)
[2018-02-04] MEDS ORDERED: inSUlin (REGULAR) HUMAN 1 UNIT/0.01 ML (CHARGE PER UNIT) IV ONE (05:00)
[2018-02-04] MEDS ORDERED: inSUlin (REGULAR) HUMAN 1 UNIT/0.01 ML (CHARGE PER UNIT) SC ONE (05:45)
[2018-02-04 06:04] VITALS: BP 109/70
== END 2018-02-04 06:04 ==
LOC: EDUNIT# 20:58 → ER 20:59
DX: R45.851 Suicidal ideations (principal); E11.9 Type 2 diabetes mellitus without complications; E78.00 Pure hypercholesterolemia, unspecified; K21.9 Gastro-esophageal reflux disease without esophagitis; I10 Essential (primary) hypertension; F41.9 Anxiety disorder, unspecified; F32.9 Major depressive disorder, single episode, unspecified; F17.210 Nicotine dependence, cigarettes, uncomplicated; Z88.1 Allergy status to other antibiotic agents; Z87.19 Personal history of other diseases of the digestive system; Z90.89 Acquired absence of other organs; Z91.5 Personal history of self-harm; Z82.49 Family history of ischemic heart disease and other diseases of the circulatory system; Z88.0 Allergy status to penicillin; Z79.4 Long term (current) use of insulin
CPT/HCPCS: 36415; 80053; 80306; 80320; 80329; 81000; 82962; 84443; 85025; 93005; 96372; 96374